=== PATIENT | male | born 1955 | race African-American/Black ===

== ENCOUNTER 2017-10-11 18:49 | Inpatient (IN) | payer MEDICAID ==
[~2017-10-11] VITALS: Ht 167.6 cm; Wt 99.8 kg
[2017-10-11] MEDS: Heparin 5000 units/ml inj SUBQ SCH (01:09)
[~2017-10-11 18:49] MED LIST: ASPIR 8181 MG ORAL; DEPAKENE250 MG ORAL; DEPAKOTE500 MG PO; LIPITOR10 MG ORAL; METOPROLOL SUCC25 MG ORAL; MIRALAX17 G2 ORAL; MULTI VITAMIN1 EACH ORAL; TYLENOL325 MG ORAL
[2017-10-11 19:00] VITALS: BP 114/70
[2017-10-11] MEDS ORDERED: Cefepime HCl 1 GM in NS 55 ML IV SCH (19:15)
[2017-10-11] MEDS ORDERED: Acetaminophen 650 MG SUPP RECTAL ONE (19:15)
[2017-10-11] MEDS ORDERED: Vancomycin 1 GM in NS 275 ML IV ONE (19:15)
[2017-10-11] MEDS ORDERED: Cefepime 1gm vial ONE (19:20)
[2017-10-11 19:24] LABS: BASOPHILS % (AUTO) 0.4 % (0.0-2.0); EOSINOPHILS % (AUTO) 0.3 % (0.0-3.0); HEMATOCRIT 54.6 % (42.0-52.0); HEMOGLOBIN 17.6 G/DL (14.2-18.0); LYMPHOCYTES % (AUTO) 5.3 % (20.0-45.0); MEAN CORPUSCULAR VOLUME 87 FL (80-99); MONOCYTES % (AUTO) 0.9 % (1.0-10.0); NEUTROPHILS % (AUTO) 93.1 % (45.0-75.0); PLATELET COUNT 184 K/UL (150-450); RED BLOOD COUNT 6.27 M/UL (4.70-6.10); RED CELL DISTRIBUTION WIDTH 12.8 % (11.6-14.8); WHITE BLOOD COUNT 7.9 K/UL (4.8-10.8)
[2017-10-11] MEDS ORDERED: DEPAKENE250 MG/5 M PO (19:28)
[2017-10-11] MEDS ORDERED: DOCUSATE SODIU100 MG ORAL (19:32)
[2017-10-11] MEDS ORDERED: FLEET ENEMA133 ML RECTAL (19:32)
[2017-10-11] MEDS ORDERED: DULCOLAX10 MG RC (19:32)
[2017-10-11] MEDS ORDERED: MILK OF MA400 MG/51 ORAL (19:36)
[2017-10-11] MEDS ORDERED: MIRALAX17 G2 ORAL (19:36)
[2017-10-11] MEDS ORDERED: METOPROLOL TART25 MG ORAL (19:36)
[2017-10-11] MEDS ORDERED: MULTIVITAMINS1 EA13 ORAL (19:37)
[2017-10-11] MEDS ORDERED: TYLENOL EXTRA500 MG ORAL (19:39)
[2017-10-11] MEDS ORDERED: Vancomycin 1gm inj IVPB ONE (19:57)
[2017-10-11 20:01] LABS: ANION GAP 14 mmol/L (5-15); BLOOD UREA NITROGEN 24 mg/dL (7-18); CALCIUM 9.1 MG/DL (8.5-10.1); CARBON DIOXIDE 22 MMOL/L (21-32); CHLORIDE 105 MMOL/L (98-107); CREATININE 1.7 MG/DL (0.55-1.30); POTASSIUM 4.8 MMOL/L (3.5-5.1); SODIUM 141 MMOL/L (136-145)
[2017-10-11 20:13] LABS: ALANINE AMINOTRANSFERASE 74 U/L (12-78); ALBUMIN 3.3 G/DL (3.4-5.0); ALBUMIN/GLOBULIN RATIO 0.8 (1.0-2.7); ALKALINE PHOSPHATASE 121 U/L (46-116); ASPARTATE AMINO TRANSFERASE 86 U/L (15-37); BILIRUBIN,TOTAL 0.5 MG/DL (0.2-1.0); CKMB 1.5 NG/ML (0.0-3.6); CREATINE KINASE 149 U/L (26-308)
[2017-10-11] MEDS ORDERED: Albuterol/Ipratropium 3ml neb HHN PRN (20:15)
[2017-10-11] MEDS ORDERED: Mylanta II UD 30ml ORAL PRN (20:15)
[2017-10-11] MEDS ORDERED: Promethazine/Codeine 5ml UD ORAL PRN (20:15)
[2017-10-11] MEDS ORDERED: Nitroglycerin Subl 0.4mg tab SL PRN (20:15)
[2017-10-11] MEDS ORDERED: Miralax 17gm pkt ORAL PRN (20:15)
[2017-10-11 20:42] VITALS: BP 123/83
[2017-10-11] MEDS ORDERED: Cefepime HCl 1 GM in D5W 55 ML IV SCH (21:00)
[2017-10-11 22:30] VITALS: BP 112/84
--- NOTE | 2017-10-11 22:44 | Emergency Room Report ---
History of Present Illness General Chief Complaint: Altered Level of Consciousness Source: Patient, Medical Record, EMS Present Illness HPI Patient presents from a [facility] facility. He was noted by the staff to be weaker than usual and be more altered unusual. He also is found to have a low oxygen saturation at the facility at 86%. This did improve with 2 L of nasal cannula. Patient has a history of CVA with hemiplegia and seizure disorder. He was also tachypneic. The patient states he does feel slightly short of breath. He denies pain. He has no other complaints. Allergies: Coded Allergies: NO KNOWN ALLERGIES (Unverified Allergy, Unknown, 09/03/15) Patient History Past Medical History: see triage record, HTN, DC, CVA/TIA, dementia, seizures Social History: Denies: smoking, alcohol use, drug use Reviewed Nursing Documentation: PMH: Agreed, PSxH: Agreed Nursing Documentation-PMH Past Medical History: No History, Except For Hx Hypertension: Yes - cataract Hx Gastrointestinal Problems: Yes - dysphagia Hx Neurological Problems: Yes - muscle weakness, hx of fall, obstructive hydrocephalus Hx Cerebrovascular Accident: Yes Hx Seizures: Yes Review of Systems All Other Systems: negative except mentioned in HPI Physical Exam Vital Signs Date Time Temp Pulse Resp B/P (MAP) Pulse Ox O2 Delivery O2 Flow Rate FiO2 10/11/17 18:51 102.9 112 20 112/82 99 Non-Rebreather 15.0 10/11/17 20:57 30 Sp02 EP Interpretation: reviewed, abnormal General Appearance: alert, GCS 15, moderate distress, Chronically Ill Head: normocephalic, atraumatic ENT: hearing grossly normal, normal pharynx, no angioedema, normal voice Neck: full range of motion, supple/symm/no masses Respiratory: chest non-tender, lungs clear, normal breath sounds, no retraction , no accessory muscle use, speaking full sentences, other - tachypnea Cardiovascular #1: no edema, tachycardia Gastrointestinal: normal bowel sounds, non tender, soft, non-distended, no guarding, no rebound Rectal: deferred Musculoskeletal: back normal, normal range of motion Neurologic: alert, responsive, other - At baseline, hemiplegia Psychiatric: judgement/insight normal, memory normal, mood/affect normal, no suicidal/homicidal ideation Skin: normal color, no rash, warm/dry, well hydrated Medical Decision Making Diagnostic Impression: Primary Impression: Sepsis Additional Impressions: Fever Renal failure Lactic acidosis Pneumonia ER Course This patient presented with a fever of 102. He was tachypneic with increased work of breathing, so I did start the patient on BiPAP to decrease his work of breathing. The patient does not have a large pneumonia on chest x-ray. There was a slightly hazy right lower lobe opacity that could be an early pneumonia. The patient's creatinine is elevated and I am unsure of this patient's baseline. He also has a lactic acidosis. He could also have influenza. He was given broad-spectrum antibiotics and IV fluids. He was admitted to the ICU step down. This patient is critically ill. This patient required complex medical decision- making, aggressive intervention, extensive laboratory workup and monitoring. Critical care time: 40 minutes. Laboratory Tests Test 10/11/17 19:05 White Blood Count 7.9 K/UL (4.8-10.8) Red Blood Count 6.27 M/UL (4.70-6.10) H Hemoglobin 17.6 G/DL (14.2-18.0) Hematocrit 54.6 % (42.0-52.0) H Mean Corpuscular Volume 87 FL (80-99) Mean Corpuscular Hemoglobin 28.0 PG (27.0-31.0) Mean Corpuscular Hemoglobin Concent 32.2 G/DL (32.0-36.0) Red Cell Distribution Width 12.8 % (11.6-14.8) Platelet Count 184 K/UL (150-450) Mean Platelet Volume 6.7 FL (6.5-10.1) Neutrophils (%) (Auto) 93.1 % (45.0-75.0) H Lymphocytes (%) (Auto) 5.3 % (20.0-45.0) L Monocytes (%) (Auto) 0.9 % (1.0-10.0) L Eosinophils (%) (Auto) 0.3 % (0.0-3.0) Basophils (%) (Auto) 0.4 % (0.0-2.0) Sodium Level 141 MMOL/L (136-145) Potassium Level 4.8 MMOL/L (3.5-5.1) Chloride Level 105 MMOL/L (98-107) Carbon Dioxide Level 22 MMOL/L (21-32) Anion Gap 14 mmol/L (5-15) Blood Urea Nitrogen 24 mg/dL (7-18) H Creatinine 1.7 MG/DL (0.55-1.30) H Estimate Glomerular Filtration Rate 49.9 mL/min (>60) Glucose Level 94 MG/DL (74-106) Lactic Acid Level 5.00 mmol/L (0.66-2.22) H Calcium Level 9.1 MG/DL (8.5-10.1) Total Bilirubin 0.5 MG/DL (0.2-1.0) Aspartate Amino Transferase (AST) 86 U/L (15-37) H Alanine Aminotransferase (ALT) 74 U/L (12-78) Alkaline Phosphatase 121 U/L (46-116) H Total Creatine Kinase 149 U/L (26-308) Creatine Kinase MB 1.5 NG/ML (0.0-3.6) Creatine Kinase MB Relative Index 1.0 Troponin I 0.009 ng/mL (0.000-0.056) Total Protein 7.3 G/DL (6.4-8.2) Albumin 3.3 G/DL (3.4-5.0) L Globulin 4.0 g/dL Albumin/Globulin Ratio 0.8 (1.0-2.7) L Microbiology Date/Time Source Procedure Growth Status 10/11/17 19:35 Nasal Nares Influenza Types A,B Antigen (KATHARINE) - Final Complete EKG Diagnostic Results Rate: tachycardiac Rhythm: other - S.tachycardia ST Segments: other Other Impression NSST Rhythm Strip Diag. Results EP Interpretation: yes Rate: 130's Rhythm: no PVC's, no ectopy, other - s.tachy Chest X-Ray Diagnostic Results Chest X-Ray Diagnostic Results : Chest X-Ray Ordered: Yes # of Views/Limited/Complete: 1 View Indication: Shortness of Breath EP Interpretation: Yes Interpretation: no effusion, no pneumothorax Impression: Other - hazy small opacity in RLL Last Vital Signs Date Time Temp Pulse Resp B/P (MAP) Pulse Ox O2 Delivery O2 Flow Rate FiO2 10/11/17 20:57 111 23 97 Facial 30 10/11/17 20:42 103.3 123/83 10/11/17 18:51 15.0 Disposition: ADMITTED INPATIENT Condition: Critical Referrals: NON PHYSICIAN (PCP) JULIET PEMBERTON D.O.b 1, 2018 22:44
[2017-10-12] VITALS (17 sets, daily range): BP systolic 93–158; BP diastolic 63–136
[2017-10-12 04:25] LABS: HEMATOCRIT 46.1 % (42.0-52.0); HEMOGLOBIN 15.7 G/DL (14.2-18.0); MEAN CORPUSCULAR VOLUME 86 FL (80-99); PLATELET COUNT 166 K/UL (150-450); RED BLOOD COUNT 5.34 M/UL (4.70-6.10); RED CELL DISTRIBUTION WIDTH 12.6 % (11.6-14.8)
[2017-10-12 04:43] LABS: ALANINE AMINOTRANSFERASE 59 U/L (12-78); ALBUMIN 2.7 G/DL (3.4-5.0); ALBUMIN/GLOBULIN RATIO 0.8 (1.0-2.7); ALKALINE PHOSPHATASE 60 U/L (46-116); ANION GAP 10 mmol/L (5-15); ASPARTATE AMINO TRANSFERASE 49 U/L (15-37); BILIRUBIN,TOTAL 0.3 MG/DL (0.2-1.0); BLOOD UREA NITROGEN 24 mg/dL (7-18); CALCIUM 8.8 MG/DL (8.5-10.1); CARBON DIOXIDE 22 MMOL/L (21-32); CHLORIDE 109 MMOL/L (98-107); CREATININE 1.4 MG/DL (0.55-1.30); POTASSIUM 4.2 MMOL/L (3.5-5.1); SODIUM 141 MMOL/L (136-145)
[2017-10-12 07:42] LABS: APPEARANCE,URINE CLEAR; BILIRUBIN, URINE NEGATIVE (NEGATIVE); GLUCOSE, URINE (UA) NEGATIVE (NEGATIVE); KETONES,URINE NEGATIVE (NEGATIVE); LEUKOCYTE ESTERASE ,URINE 3+ (NEGATIVE); NITRITE,URINE POSITIVE (NEGATIVE); PH,URINE 5 (4.5-8.0); PROTEIN,URINE 2+ (NEGATIVE); UROBILINOGEN,URINE NORMAL MG/DL (0.0-1.0)
[2017-10-12 07:53] LABS: COLOR,URINE YELLOW
[2017-10-12] MEDS ORDERED: Sodium Phosphate 30 MM in NS 275 ML IVPB ONE (08:00)
[2017-10-12] MEDS: Heparin 5000 units/ml inj SUBQ SCH ×2 (08:25→21:50)
--- NOTE | 2017-10-12 11:10 | History and Physical ---
History of Present Illness General Date patient seen: Oct 12, 2017 Reason for Hospitalization: Altered Level of Consciousness Present Illness HPI 61 year old male from retirement wtih a history of CVA with hemiplegia and seizure disorder presented to ER with CC of to weakness and be more altered unusual. He also is found to have a low oxygen saturation at the facility at 86 %. He was also tachypneic. The patient states he does feel slightly short of breath. Allergies: Coded Allergies: NO KNOWN ALLERGIES (Unverified Allergy, Unknown, 09/03/15) Medication History Scheduled Aspirin* (Aspir 81*), 81 MG ORAL DAILY, (Reported) Atorvastatin Calcium* (Lipitor*), 10 MG ORAL BEDTIME Docusate Sodium* (Docusate Sodium*), 200 MG ORAL DAILY, (Reported) Metoprolol Tartrate* (Metoprolol Tartrate*), 25 MG ORAL DAILY, (Reported) Multivitamin with Minerals (Multivitamins with Minerals), 1 TAB ORAL DAILY, ( Reported) Valproate Sodium (Depakene), 750 MG PO DAILY, (Reported) Scheduled PRN Acetaminophen (Tylenol), 325 MG ORAL Q6H PRN for For Pain, (Reported) Acetaminophen* (Tylenol Extra Strength*), 1,000 MG ORAL Q6H PRN for PAIN (Mod 5- 7), (Reported) Bisacodyl (Dulcolax), 10 MG RC for Constipation, (Reported) Magnesium Hydroxide* (Milk Of Magnesia*), 30 ML ORAL DAILY PRN for Constipation, (Reported) Na Phos,M-B/Na Phos,Di-Ba* (Fleet Enema*), 133 ML RECTAL DAILY PRN for Constipation, (Reported) Polyethylene Glycol 3350* (Miralax*), 17 GM ORAL DAILY PRN for Constipation, ( Reported) Discontinued Medications Divalproex Sodium (Depakote), 500 MG PO DAILY Discontinued Reason: discontinued med Divalproex Sodium (Depakote), 750 MG PO HS Discontinued Reason: MD discontinued med Metoprolol Succinate* (Metoprolol Succinate*), 25 MG ORAL DAILY Discontinued Reason: MD discontinued med Multivitamin (Multi Vitamin Daily), 1 TAB ORAL DAILY, (Reported) Discontinued Reason: MD discontinued med Valproic Acid (Depakene), 500 MG ORAL BID, (Reported) Discontinued Reason: MD discontinued med Patient History Healthcare decision maker Resuscitation status Full Code Advanced Directive on File Yes Past Medical/Surgical History Past Medical/Surgical History: (1) Obstructive hydrocephalus (2) Dementia (3) Epileptic seizure, generalized Review of Systems Constitutional: Reports: no symptoms Eye: Reports: no symptoms Physical Exam General Appearance: WD/WN Lines, tubes and drains: peripheral, central line, trach HEENT: normocephalic, anicteric Neck: non-tender, normal alignment Respiratory/Chest: chest wall non-tender, lungs clear Breasts: no masses Cardiovascular/Chest: normal peripheral pulses, normal rate Abdomen: normal bowel sounds, non tender, hyperactive bowel sounds Genitourinary/Rectal: normal genital exam Last 24 Hour Vital Signs Date Time Temp Pulse Resp B/P (MAP) Pulse Ox O2 Delivery O2 Flow Rate FiO2 10/12/17 10:00 101 25 104/68 99 Nasal Cannula 4.0 10/12/17 09:00 102 31 102/66 95 Nasal Cannula 4.0 10/12/17 08:00 99.1 106 32 101/63 95 Nasal Cannula 4.0 10/12/17 08:00 103 10/12/17 07:00 99 27 104/64 95 Nasal Cannula 4.0 10/12/17 06:45 96 24 95 10/12/17 06:00 93 21 94/65 95 Bi-pap 30 10/12/17 05:22 92 19 95 Facial 30 10/12/17 05:00 95 24 97/64 95 Bi-pap 30 10/12/17 04:00 99.4 97 27 104/78 94 Bi-pap 30 10/12/17 04:00 103 10/12/17 04:00 30 10/12/17 03:30 112 31 94 Facial 30 10/12/17 03:00 105 27 113/75 95 Bi-pap 30 10/12/17 02:21 99.4 10/12/17 02:00 105 27 111/70 94 Bi-pap 30 10/12/17 01:00 100.0 108 26 158/136 88 Nasal Cannula 6.0 10/12/17 00:59 114 30 93 Facial 30 10/12/17 00:40 110 32 117/85 98 10/12/17 00:00 110 32 117/85 98 Bi-pap 10/11/17 23:30 114 30 93 Facial 30 10/11/17 22:30 108 25 112/84 97 Bi-pap 10/11/17 20:57 111 23 97 Facial 30 10/11/17 20:42 103.3 113 24 123/83 96 10/11/17 19:00 103.3 137 40 114/70 94 Non-Rebreather 10/11/17 18:51 102.9 112 20 112/82 99 Non-Rebreather 15.0 Intake and Output 10/11/17 10/12/17 19:00 07:00 Intake Total 0 ml Output Total 350 ml Balance -350 ml Intake Oral 0 ml Output Urine Total 350 ml # Voids 1 # Bowel Movements 3 Laboratory Tests Test 10/11/17 19:05 10/11/17 23:32 10/12/17 03:35 10/12/17 04:30 White Blood Count 7.9 K/UL (4.8-10.8) 25.0 K/UL (4.8-10.8) #*H Red Blood Count 6.27 M/UL (4.70-6.10) H 5.34 M/UL (4.70-6.10) Hemoglobin 17.6 G/DL (14.2-18.0) 15.7 G/DL (14.2-18.0) Hematocrit 54.6 % (42.0-52.0) H 46.1 % (42.0-52.0) Mean Corpuscular Volume 87 FL (80-99) 86 FL (80-99) Mean Corpuscular Hemoglobin 28.0 PG (27.0-31.0) 29.3 PG (27.0-31.0) Mean Corpuscular Hemoglobin Concent 32.2 G/DL (32.0-36.0) 33.9 G/DL (32.0-36.0) Red Cell Distribution Width 12.8 % (11.6-14.8) 12.6 % (11.6-14.8) Platelet Count 184 K/UL (150-450) 166 K/UL (150-450) Mean Platelet Volume 6.7 FL (6.5-10.1) 7.1 FL (6.5-10.1) Neutrophils (%) (Auto) 93.1 % (45.0-75.0) H % (45.0-75.0) Lymphocytes (%) (Auto) 5.3 % (20.0-45.0) L % (20.0-45.0) Monocytes (%) (Auto) 0.9 % (1.0-10.0) L % (1.0-10.0) Eosinophils (%) (Auto) 0.3 % (0.0-3.0) % (0.0-3.0) Basophils (%) (Auto) 0.4 % (0.0-2.0) % (0.0-2.0) Sodium Level 141 MMOL/L (136-145) 141 MMOL/L (136-145) Potassium Level 4.8 MMOL/L (3.5-5.1) 4.2 MMOL/L (3.5-5.1) Chloride Level 105 MMOL/L (98-107) 109 MMOL/L (98-107) H Carbon Dioxide Level 22 MMOL/L (21-32) 22 MMOL/L (21-32) Anion Gap 14 mmol/L (5-15) 10 mmol/L (5-15) Blood Urea Nitrogen 24 mg/dL (7-18) H 24 mg/dL (7-18) H Creatinine 1.7 MG/DL (0.55-1.30) H 1.4 MG/DL (0.55-1.30) H Estimat Glomerular Filtration Rate 49.9 mL/min (>60) > 60 mL/min (>60) Glucose Level 94 MG/DL (74-106) 107 MG/DL (74-106) H Lactic Acid Level 5.00 mmol/L (0.66-2.22) H 5.30 mmol/L (0.66-2.22) H Calcium Level 9.1 MG/DL (8.5-10.1) 8.8 MG/DL (8.5-10.1) Total Bilirubin 0.5 MG/DL (0.2-1.0) 0.3 MG/DL (0.2-1.0) Aspartate Amino Transf (AST/SGOT) 86 U/L (15-37) H 49 U/L (15-37) H Alanine Aminotransferase (ALT/SGPT) 74 U/L (12-78) 59 U/L (12-78) Alkaline Phosphatase 121 U/L (46-116) H 60 U/L (46-116) Total Creatine Kinase 149 U/L (26-308) Creatine Kinase MB 1.5 NG/ML (0.0-3.6) Creatine Kinase MB Relative Index 1.0 Troponin I 0.009 ng/mL (0.000-0.056) Total Protein 7.3 G/DL (6.4-8.2) 6.2 G/DL (6.4-8.2) L Albumin 3.3 G/DL (3.4-5.0) L 2.7 G/DL (3.4-5.0) L Globulin 4.0 g/dL 3.5 g/dL Albumin/Globulin Ratio 0.8 (1.0-2.7) L 0.8 (1.0-2.7) L Differential Total Cells Counted 100 Neutrophils % (Manual) 80 % (45-75) H Lymphocytes % (Manual) 6 % (20-45) L Monocytes % (Manual) 4 % (1-10) Eosinophils % (Manual) 0 % (0-3) Basophils % (Manual) 0 % (0-2) Band Neutrophils 10 % (0-8) H Platelet Estimate Adequate Platelet Morphology Normal Red Blood Cell Morphology Normal Phosphorus Level 1.0 MG/DL (2.5-4.9) L Magnesium Level 1.7 MG/DL (1.8-2.4) L Urine Color Yellow Urine Appearance Clear Urine pH 5 (4.5-8.0) Urine Specific [place] 1.015 (1.005-1.035) Urine Protein 2+ (NEGATIVE) H Urine Glucose (UA) Negative (NEGATIVE) Urine Ketones Negative (NEGATIVE) Urine Occult Blood 5+ (NEGATIVE) H Urine Nitrite Positive (NEGATIVE) H Urine Bilirubin Negative (NEGATIVE) Urine Urobilinogen Normal MG/DL (0.0-1.0) Urine Leukocyte Esterase 3+ (NEGATIVE) H Urine RBC 20-30 /HPF (0 - 0) H Urine WBC 15-20 /HPF (0 - 0) H Urine Squamous Epithelial Cells Occasional /LPF Urine Bacteria Moderate /HPF (NONE) H Test 10/12/17 06:50 Arterial Blood pH 7.438 (7.350-7.450) Arterial Blood Partial Pressure CO2 29.8 mmHg (35.0-45.0) L Arterial Blood Partial Pressure O2 67.1 mmHg (75.0-100.0) L Arterial Blood HCO3 19.7 mmol/L (22.0-26.0) L Arterial Blood Oxygen Saturation 93.6 % (92.0-98.0) Arterial Blood Base Excess -3.1 Dipak Test Positive Microbiology Date/Time Source Procedure Growth Status 10/11/17 19:35 Nasal Nares Influenza Types A,B Antigen (KATHARINE) - Final Complete Height (Feet): 5 Height (Inches): 7.00 Weight (Pounds): 175 Medications Current Medications Medications (Trade) Dose Ordered Sig/Olvin Route PRN Reason Start Time Stop Time Status Last Admin Dose Admin Acetaminophen (Tylenol) 650 mg Q4H PRN ORAL fever (temp>100.5F) 10/11/17 20:15 11/10/17 20:14 10/12/17 01:22 Al Hydroxide/Mg Hydroxide (Mylanta II) 30 ml Q6H PRN ORAL dyspepsia 10/11/17 20:15 11/10/17 20:14 Albuterol/ Ipratropium (Albuterol/ Ipratropium) 3 ml Q4H PRN HHN Shortness of Breath 10/11/17 20:15 10/16/17 20:14 Cefepime HCl 1 gm/ Sodium Chloride 55 ml @ 110 mls/hr DAILY@2000 IV 10/12/17 20:00 10/19/17 19:59 Heparin Sodium (Porcine) (Heparin 5000 units/ml) 5,000 units EVERY 12 HOURS SUBQ 10/11/17 22:00 11/10/17 21:59 10/12/17 08:25 Nitroglycerin (Ntg) 0.4 mg Q5M PRN SL Prn Chest Pain 10/11/17 20:15 11/10/17 20:14 Ondansetron HCl (Zofran) 4 mg Q6H PRN IVP Nausea & Vomiting 10/11/17 20:15 11/10/17 20:14 Polyethylene Glycol (Miralax) 17 gm DAILYPRN PRN ORAL Constipation 10/11/17 20:15 11/10/17 20:14 Promethazine HCl/ Codeine (Phenergan with Codeine) 5 ml Q4H PRN ORAL For Cough 10/11/17 20:15 11/10/17 20:14 Sodium Phosphate 30 mm/Sodium Chloride 285 ml @ 47.5 mls/hr ONCE ONCE IVPB 10/12/17 08:00 10/12/17 13:59 10/12/17 08:20 Temazepam (Restoril) 15 mg HSPRN PRN ORAL Insomnia 10/11/17 20:15 10/18/17 20:14 Vancomycin HCl (Vanco rx to dose) 1 ea DAILY PRN MISC Per rx protocol 10/11/17 20:15 11/10/17 20:14 Vancomycin HCl 1 gm/Dextrose 275 ml @ 183.708 mls/hr Q24H IVPB 10/12/17 21:00 10/17/17 20:59 Assessment/Plan Problem List: (1) Hypoxemia ICD Codes: R09.02 - Hypoxemia SNOMED: 630870164 (2) Obstructive hydrocephalus ICD Codes: G91.1 - Obstructive hydrocephalus SNOMED: 60763843, 451566695 (3) Renal failure ICD Codes: N19 - Unspecified kidney failure SNOMED: 55421530 (4) CVA, old, hemiparesis ICD Codes: I69.359 - Hemiplegia and hemiparesis following cerebral infarction affecting unspecified side SNOMED: 16238266, 54078910, [id number] Assessment/Plan titrate fio2 to sat of 92% V/q or CT angio to rule out PE check cultures neuro evaluation dvt prophylaxis EDDIE COLES Oct 12, 2017 11:10
[2017-10-12] MEDS ORDERED: D5 1/2NS 1,000 ML IV SCH (11:30)
[2017-10-12 12:51] LABS: CREATINE KINASE 676 U/L (26-308)
--- NOTE | 2017-10-12 14:17 | Diagnostic Imaging Report ---
Indication: Dyspnea Comparison: 09/03/2015 A single view chest radiograph was obtained. Findings: Cardiomediastinal appearance is within normal limits for age. Pulmonary vascularity is appropriate. The diaphragmatic contour is smooth and costophrenic angles are sharp. No pleural effusions are identified. The bones are unremarkable. Impression: No acute findings
[2017-10-12] MEDS ORDERED: Nitroglycerin Subl 0.4mg tab SL PRN (15:05)
--- NOTE | 2017-10-12 15:07 | Consultation ---
History of Present Illness General Date patient seen: Oct 12, 2017 Time patient seen: 15:05 Chief Complaint: Altered Level of Consciousness Present Illness HPI 61 y/o M with hx of CVA with hemiplegia, HTN, cataract, dysphagia, hx of fall, CAD/OR, CVA/TIA, dementia, seizure disorder presents to ED on 10/11 with weakness , AMS, tachypnea, SOB and desaturation to 85% at group home facility. Patient febrile up to 103.3, tachycardic. Initially required Bipap, now on NC. leukocytosis upt o 25 today. CXR with no PNA. ON IV Vanco and CEfepime. Influenza neg Allergies: Coded Allergies: NO KNOWN ALLERGIES (Unverified Allergy, Unknown, 09/03/15) Medication History Scheduled Aspirin* (Aspir 81*), 81 MG ORAL DAILY, (Reported) Atorvastatin Calcium* (Lipitor*), 10 MG ORAL BEDTIME Docusate Sodium* (Docusate Sodium*), 200 MG ORAL DAILY, (Reported) Metoprolol Tartrate* (Metoprolol Tartrate*), 25 MG ORAL DAILY, (Reported) Multivitamin with Minerals (Multivitamins with Minerals), 1 TAB ORAL DAILY, ( Reported) Valproate Sodium (Depakene), 750 MG PO DAILY, (Reported) Scheduled PRN Acetaminophen (Tylenol), 325 MG ORAL Q6H PRN for For Pain, (Reported) Acetaminophen* (Tylenol Extra Strength*), 1,000 MG ORAL Q6H PRN for PAIN (Mod 5- 7), (Reported) Bisacodyl (Dulcolax), 10 MG RC for Constipation, (Reported) Magnesium Hydroxide* (Milk Of Magnesia*), 30 ML ORAL DAILY PRN for Constipation, (Reported) Na Phos,M-B/Na Phos,Di-Ba* (Fleet Enema*), 133 ML RECTAL DAILY PRN for Constipation, (Reported) Polyethylene Glycol 3350* (Miralax*), 17 GM ORAL DAILY PRN for Constipation, ( Reported) Discontinued Medications Divalproex Sodium (Depakote), 500 MG PO DAILY Discontinued Reason: MD discontinued med Divalproex Sodium (Depakote), 750 MG PO HS Discontinued Reason: discontinued med Metoprolol Succinate* (Metoprolol Succinate*), 25 MG ORAL DAILY Discontinued Reason: MD discontinued med Multivitamin (Multi Vitamin Daily), 1 TAB ORAL DAILY, (Reported) Discontinued Reason: MD discontinued med Valproic Acid (Depakene), 500 MG ORAL BID, (Reported) Discontinued Reason: MD discontinued med Patient History Healthcare decision maker Resuscitation status Full Code Advanced Directive on File Yes Patient History Narrative Pmhx: as above Sh: Denies: smoking, alcohol use, drug use Fhx: non contributory Review of Systems ROS Narrative unable to obtain Physical Exam Physical Exam Narrative General Appearance: alert, moderate distress, Chronically Ill Head: normocephalic, atraumatic ENT: hearing grossly normal, normal pharynx, no angioedema, normal voice, injected conjuctiva Neck: full range of motion, supple/symm/no masses Respiratory: chest non-tender, lungs clear, normal breath sounds, no retraction , no accessory muscle use, speaking full sentences, other - tachypnea Cardiovascular no edema, tachycardia Gastrointestinal: normal bowel sounds, non tender, soft, non-distended, no guarding, no rebound Musculoskeletal: back normal, normal range of motion Skin: normal color, no rash, warm/dry, well hydrated Last 24 Hour Vital Signs Date Time Temp Pulse Resp B/P (MAP) Pulse Ox O2 Delivery O2 Flow Rate FiO2 10/12/17 14:00 112 25 120/74 97 Nasal Cannula 3.0 10/12/17 13:00 103 24 112/71 100 Nasal Cannula 3.0 10/12/17 12:00 115 10/12/17 12:00 98.7 112 25 114/74 100 Nasal Cannula 3.0 10/12/17 11:16 111 26 97 10/12/17 11:00 111 26 93/68 98 Nasal Cannula 3.0 10/12/17 10:00 101 25 104/68 99 Nasal Cannula 4.0 10/12/17 09:00 102 31 102/66 95 Nasal Cannula 4.0 10/12/17 08:00 99.1 106 32 101/63 95 Nasal Cannula 4.0 10/12/17 08:00 103 10/12/17 07:00 99 27 104/64 95 Nasal Cannula 4.0 10/12/17 06:45 96 24 95 10/12/17 06:00 93 21 94/65 95 Bi-pap 30 10/12/17 05:22 92 19 95 Facial 30 10/12/17 05:00 95 24 97/64 95 Bi-pap 30 10/12/17 04:00 99.4 97 27 104/78 94 Bi-pap 30 10/12/17 04:00 103 10/12/17 04:00 30 10/12/17 03:30 112 31 94 Facial 30 10/12/17 03:00 105 27 113/75 95 Bi-pap 30 10/12/17 02:21 99.4 10/12/17 02:00 105 27 111/70 94 Bi-pap 30 10/12/17 01:00 100.0 108 26 158/136 88 Nasal Cannula 6.0 10/12/17 00:59 114 30 93 Facial 30 10/12/17 00:40 110 32 117/85 98 10/12/17 00:00 110 32 117/85 98 Bi-pap 10/11/17 23:30 114 30 93 Facial 30 10/11/17 22:30 108 25 112/84 97 Bi-pap 10/11/17 20:57 111 23 97 Facial 30 10/11/17 20:42 103.3 113 24 123/83 96 10/11/17 19:00 103.3 137 40 114/70 94 Non-Rebreather 10/11/17 18:51 102.9 112 20 112/82 99 Non-Rebreather 15.0 Intake and Output 10/11/17 10/12/17 19:00 07:00 Intake Total 0 ml Output Total 350 ml Balance -350 ml Intake Oral 0 ml Output Urine Total 350 ml # Voids 1 # Bowel Movements 3 Laboratory Tests Test 10/11/17 19:05 10/11/17 23:32 10/12/17 03:35 10/12/17 04:30 White Blood Count 7.9 K/UL (4.8-10.8) 25.0 K/UL (4.8-10.8) #*H Red Blood Count 6.27 M/UL (4.70-6.10) H 5.34 M/UL (4.70-6.10) Hemoglobin 17.6 G/DL (14.2-18.0) 15.7 G/DL (14.2-18.0) Hematocrit 54.6 % (42.0-52.0) H 46.1 % (42.0-52.0) Mean Corpuscular Volume 87 FL (80-99) 86 FL (80-99) Mean Corpuscular Hemoglobin 28.0 PG (27.0-31.0) 29.3 PG (27.0-31.0) Mean Corpuscular Hemoglobin Concent 32.2 G/DL (32.0-36.0) 33.9 G/DL (32.0-36.0) Red Cell Distribution Width 12.8 % (11.6-14.8) 12.6 % (11.6-14.8) Platelet Count 184 K/UL (150-450) 166 K/UL (150-450) Mean Platelet Volume 6.7 FL (6.5-10.1) 7.1 FL (6.5-10.1) Neutrophils (%) (Auto) 93.1 % (45.0-75.0) H % (45.0-75.0) Lymphocytes (%) (Auto) 5.3 % (20.0-45.0) L % (20.0-45.0) Monocytes (%) (Auto) 0.9 % (1.0-10.0) L % (1.0-10.0) Eosinophils (%) (Auto) 0.3 % (0.0-3.0) % (0.0-3.0) Basophils (%) (Auto) 0.4 % (0.0-2.0) % (0.0-2.0) Sodium Level 141 MMOL/L (136-145) 141 MMOL/L (136-145) Potassium Level 4.8 MMOL/L (3.5-5.1) 4.2 MMOL/L (3.5-5.1) Chloride Level 105 MMOL/L (98-107) 109 MMOL/L (98-107) H Carbon Dioxide Level 22 MMOL/L (21-32) 22 MMOL/L (21-32) Anion Gap 14 mmol/L (5-15) 10 mmol/L (5-15) Blood Urea Nitrogen 24 mg/dL (7-18) H 24 mg/dL (7-18) H Creatinine 1.7 MG/DL (0.55-1.30) H 1.4 MG/DL (0.55-1.30) H Estimat Glomerular Filtration Rate 49.9 mL/min (>60) > 60 mL/min (>60) Glucose Level 94 MG/DL (74-106) 107 MG/DL (74-106) H Lactic Acid Level 5.00 mmol/L (0.66-2.22) H 5.30 mmol/L (0.66-2.22) H Calcium Level 9.1 MG/DL (8.5-10.1) 8.8 MG/DL (8.5-10.1) Total Bilirubin 0.5 MG/DL (0.2-1.0) 0.3 MG/DL (0.2-1.0) Aspartate Amino Transf (AST/SGOT) 86 U/L (15-37) H 49 U/L (15-37) H Alanine Aminotransferase (ALT/SGPT) 74 U/L (12-78) 59 U/L (12-78) Alkaline Phosphatase 121 U/L (46-116) H 60 U/L (46-116) Total Creatine Kinase 149 U/L (26-308) 676 U/L (26-308) H Creatine Kinase MB 1.5 NG/ML (0.0-3.6) Creatine Kinase MB Relative Index 1.0 Troponin I 0.009 ng/mL (0.000-0.056) Total Protein 7.3 G/DL (6.4-8.2) 6.2 G/DL (6.4-8.2) L Albumin 3.3 G/DL (3.4-5.0) L 2.7 G/DL (3.4-5.0) L Globulin 4.0 g/dL 3.5 g/dL Albumin/Globulin Ratio 0.8 (1.0-2.7) L 0.8 (1.0-2.7) L Differential Total Cells Counted 100 Neutrophils % (Manual) 80 % (45-75) H Lymphocytes % (Manual) 6 % (20-45) L Monocytes % (Manual) 4 % (1-10) Eosinophils % (Manual) 0 % (0-3) Basophils % (Manual) 0 % (0-2) Band Neutrophils 10 % (0-8) H Platelet Estimate Adequate Platelet Morphology Normal Red Blood Cell Morphology Normal Uric Acid 7.3 MG/DL (2.6-7.2) H Phosphorus Level 1.0 MG/DL (2.5-4.9) L Magnesium Level 1.7 MG/DL (1.8-2.4) L Urine Color Yellow Urine Appearance Clear Urine pH 5 (4.5-8.0) Urine Specific [place] 1.015 (1.005-1.035) Urine Protein 2+ (NEGATIVE) H Urine Glucose (UA) Negative (NEGATIVE) Urine Ketones Negative (NEGATIVE) Urine Occult Blood 5+ (NEGATIVE) H Urine Nitrite Positive (NEGATIVE) H Urine Bilirubin Negative (NEGATIVE) Urine Urobilinogen Normal MG/DL (0.0-1.0) Urine Leukocyte Esterase 3+ (NEGATIVE) H Urine RBC 20-30 /HPF (0 - 0) H Urine WBC 15-20 /HPF (0 - 0) H Urine Squamous Epithelial Cells Occasional /LPF Urine Bacteria Moderate /HPF (NONE) H Test 10/12/17 06:24 10/12/17 06:50 10/12/17 11:27 Lactic Acid Level 3.40 mmol/L (0.66-2.22) H 3.30 mmol/L (0.66-2.22) H Arterial Blood pH 7.438 (7.350-7.450) Arterial Blood Partial Pressure CO2 29.8 mmHg (35.0-45.0) L Arterial Blood Partial Pressure O2 67.1 mmHg (75.0-100.0) L Arterial Blood HCO3 19.7 mmol/L (22.0-26.0) L Arterial Blood Oxygen Saturation 93.6 % (92.0-98.0) Arterial Blood Base Excess -3.1 Dipak Test Positive Microbiology Date/Time Source Procedure Growth Status 10/11/17 19:35 Nasal Nares Influenza Types A,B Antigen (KATHARINE) - Final Complete Height (Feet): 5 Height (Inches): 7.00 Weight (Pounds): 175 Medications Current Medications Medications (Trade) Dose Ordered Sig/Olvin Route PRN Reason Start Time Stop Time Status Last Admin Dose Admin Acetaminophen (Tylenol) 650 mg Q4H PRN ORAL fever (temp>100.5F) 10/12/17 16:15 11/10/17 20:14 UNV Al Hydroxide/Mg Hydroxide (Mylanta II) 30 ml Q6H PRN ORAL dyspepsia 10/12/17 20:15 11/10/17 20:14 UNV Albuterol/ Ipratropium (Albuterol/ Ipratropium) 3 ml Q4H PRN HHN Shortness of Breath 10/12/17 16:15 10/16/17 20:14 UNV Cefepime HCl 1 gm/ Sodium Chloride 55 ml @ 110 mls/hr DAILY@2000 IV 10/12/17 20:00 10/19/17 19:59 UNV Dextrose/Sodium Chloride 1,000 ml @ 75 mls/hr [id number] IV 10/12/17 15:00 11/11/17 11:29 UNV Heparin Sodium (Porcine) (Heparin 5000 units/ml) 5,000 units EVERY 12 HOURS SUBQ 10/12/17 21:00 11/10/17 21:59 UNV Nitroglycerin (Ntg) 0.4 mg Q5M PRN SL Prn Chest Pain 10/12/17 15:05 11/10/17 20:14 UNV Ondansetron HCl (Zofran) 4 mg Q6H PRN IVP Nausea & Vomiting 10/12/17 20:15 11/10/17 20:14 UNV Pantoprazole (Protonix) 40 mg DAILY IVP 10/13/17 09:00 11/12/17 08:59 UNV Polyethylene Glycol (Miralax) 17 gm DAILYPRN PRN ORAL Constipation 10/12/17 20:15 11/10/17 20:14 UNV Promethazine HCl/ Codeine (Phenergan with Codeine) 5 ml Q4H PRN ORAL For Cough 10/12/17 16:15 11/10/17 20:14 UNV Temazepam (Restoril) 15 mg HSPRN PRN ORAL Insomnia 10/12/17 20:15 10/18/17 20:14 UNV Vancomycin HCl (Vanco rx to dose) 1 ea DAILY PRN MISC Per rx protocol 10/13/17 09:00 11/10/17 20:14 UNV Vancomycin HCl 1 gm/Dextrose 275 ml @ 183.708 mls/hr Q24H IVPB 10/12/17 21:00 10/17/17 20:59 UNV Assessment/Plan Assessment/Plan ABX: IV Vanco 10/11- Cefepime 10/11- Assessment: Sepsis- ?2ry to bronchitis and possible UTI- suspicion for Flu despite rapid test (+URI symptoms, sick contacts) Acute hypoxic resp failure- -CXR: : No acute findings -Influenza neg Fever/leukocytosis -u/a wbc 15-20, nit +, leuk +3 -Bcx p JULIA, improving Lactic acidosis, improving CVA with hemiplegia, HTN, cataract, dysphagia, hx of fall, CAD/OR, CVA/TIA, dementia, seizure disorder Plan: -Continue empiric IV Vanco and Cefepime #2 pending cultures -start empiric Tamiflu #1/5 -obtain Cdiff -f/u cx -Monitor CBC/BMP, temperatures -aspiration precautions Thank you for this consultation. Will continue to follow along with you. Discussed with Alessia Sparks M.D. Oct 12, 2017 15:07
--- NOTE | 2017-10-12 15:09 | Diagnostic Imaging Report ---
Indication: Chest pain Technique: Continuous helical transaxial imaging of the chest was obtained from the thoracic inlet to the upper abdomen during rapid intravenous contrast administration. Arterial phase of enhancement obtained. Coronal 2-D reformats were also obtained and maximum intensity projection images in multiple planes. Study obtained in a Siemens sensation [address] Automatic Exposure Control was utilized. Total Dose length Product (DLP): 638.[address] Dose Index Volume (CTDIvol): 20.42 mGy Comparison: None Findings: Due to breathing motion the segmental branches in the lower lobes especially on the right side are not adequately evaluated due to artifact. The central vessels are clear. The aorta is normal in caliber. There is no dissection or aneurysm. There is basilar atelectasis with reticular densities noted. The visualized part of the upper abdomen is grossly unremarkable. Part of the lung bases are not included in the [id number]. IMPRESSION: No evidence of central pulmonary embolus, aortic dissection or aneurysm. Evaluation of pulmonary artery branches at the segmental level and beyond is not possible on this study due to breathing artifact. Basilar atelectasis The CT scanner at [facility] is accredited by the [employer] and the scans are performed using dose optimization techniques as appropriate to a performed exam including Automatic Exposure control.
[2017-10-12] MEDS ORDERED: Promethazine/Codeine 5ml UD ORAL PRN (16:15)
[2017-10-12] MEDS ORDERED: Albuterol/Ipratropium 3ml neb HHN PRN (16:15)
[2017-10-12] MEDS: D5 1/2NS 1,000 ML IV SCH (16:48)
--- NOTE | 2017-10-12 19:31 | Wound Care Consultation ---
Wound Assessment Wound Assessment #1: Wound Number: 1 Wound Present on Admission: Yes New Wound: No Status Change of Wound: No Wound Location Body Site Modif: right, lateral Wound Location Body Site: malleolus/ankle Wound Type: pressure ulcer Roger Test: Does not Roger Pressure Ulcer Stage: Deep Tissue Injury Wound Thickness: Full Thickness Wound Length: 3.0 Wound Width: 3.0 Wound Depth: utd Percent of Wound Purple/Maroon: 100 Wound Drainage Amount: None Wound Drainage Odor: None/Absent Tissue Surrounding Wound: Erythemic Wound General Appearance: Reddened - purple Wound Assessment #2: Wound Number: 2 Wound Present on Admission: Yes New Wound: No Status Change of Wound: No Wound Location Body Site Modif: left, lower, anterior Wound Location Body Site: leg Wound Type: other - open wound Roger Test: Does not Roger Wound Thickness: Partial Thickness Wound Length: 4.5 Wound Width: 2.5 Wound Depth: less than 0.1 Percent of Wound [place]/Red: 100 Wound Drainage Description: Serosanguineous Wound Drainage Amount: Scant Wound Drainage Odor: None/Absent Tissue Surrounding Wound: Erythemic Wound General Appearance: Reddened, Draining Wound Assessment #3: Wound Number: 3 Wound Present on Admission: Yes New Wound: No Status Change of Wound: No Wound Location Body Site Modif: right, dorsal Wound Location Body Site: foot Wound Type: scab Percent of Wound [place]/Red: 100 Wound Drainage Amount: None Wound Drainage Odor: None/Absent Tissue Surrounding Wound: Intact Wound General Appearance: Reddened Wound Comment #1 Right lateral malleolus SDTI pressure ulcer #2 Left anterior lower leg open wound. Etiology unknown #3 Right dorsal foot dry scab Recommendation -Local wound care per protocol -Keep clean and dry -Optimize nutrition -Turn and reposition -Heel protector on both heels -Offload both heels -Low air loss mattress -Assess and f/u accordingly for any changes LUISA LOERA RN Oct 12, 2017 19:31
[2017-10-12] MEDS ORDERED: Cefepime HCl 2 GM in NS 55 ML IV SCH (20:00)
[2017-10-12] MEDS ORDERED: Cefepime HCl 1 GM in NS 55 ML IV SCH (20:00)
[2017-10-12] MEDS ORDERED: Mylanta II UD 30ml ORAL PRN (20:15)
[2017-10-12] MEDS ORDERED: Miralax 17gm pkt ORAL PRN (20:15)
[2017-10-12] MEDS ORDERED: Vancomycin 1gm/D5W 275ml IVPB SCH ×2 (21:00)
[2017-10-12] MEDS: Vancomycin 1 GM in D5W 275 ML IVPB SCH (21:48)
[2017-10-12] MEDS: Oseltamivir 75mg cap ORAL SCH (22:48)
[2017-10-12] MEDS: Metoprolol 25mg tab ORAL SCH (22:48)
[2017-10-13] VITALS: BP 123/90
[2017-10-13 04:00] VITALS: BP 125/83
[2017-10-13] MEDS: D5 1/2NS 1,000 ML IV SCH ×2 (04:18→17:30)
[2017-10-13 04:39] LABS: HEMATOCRIT 45.3 % (42.0-52.0); HEMOGLOBIN 15.2 G/DL (14.2-18.0); MEAN CORPUSCULAR VOLUME 87 FL (80-99); PLATELET COUNT 135 K/UL (150-450); RED BLOOD COUNT 5.19 M/UL (4.70-6.10); RED CELL DISTRIBUTION WIDTH 13.3 % (11.6-14.8)
[2017-10-13 04:55] LABS: WHITE BLOOD COUNT 24.2 K/UL (4.8-10.8)
[2017-10-13 05:58] LABS: ALANINE AMINOTRANSFERASE 42 U/L (12-78); ALBUMIN 2.6 G/DL (3.4-5.0); ALBUMIN/GLOBULIN RATIO 0.6 (1.0-2.7); ALKALINE PHOSPHATASE 73 U/L (46-116); ANION GAP 7 mmol/L (5-15); ASPARTATE AMINO TRANSFERASE 48 U/L (15-37); BILIRUBIN,TOTAL 0.5 MG/DL (0.2-1.0); BLOOD UREA NITROGEN 25 mg/dL (7-18); CALCIUM 8.4 MG/DL (8.5-10.1); CARBON DIOXIDE 27 MMOL/L (21-32); CHLORIDE 109 MMOL/L (98-107); CREATININE 1.3 MG/DL (0.55-1.30); PHOSPHORUS 3.5 MG/DL (2.5-4.9); SODIUM 142 MMOL/L (136-145)
[2017-10-13 08:00] VITALS: BP 137/91
[2017-10-13] MEDS: Aspirin EC 81mg tab ORAL SCH (08:54)
[2017-10-13] MEDS: Metoprolol 25mg tab ORAL SCH (08:55)
[2017-10-13] MEDS: Pantoprazole Inj IVP SCH (08:55)
[2017-10-13] MEDS: Heparin 5000 units/ml inj SUBQ SCH ×2 (08:57→21:23)
[2017-10-13] MEDS ORDERED: Metoprolol 25mg tab ORAL SCH (09:00)
[2017-10-13] MEDS ORDERED: Pantoprazole Inj IVP SCH (09:00)
--- NOTE | 2017-10-13 09:10 | Diagnostic Imaging Report ---
Indication: Abnormal renal function tests Technique: Grayscale and duplex images of the kidneys, retroperitoneum, and bladder were obtained. Comparison: Findings: Exam is limited due to patient body habitus and contracture. Right kidney measures 10.2 cm in length. Left kidney measures 11 cm in length. Both kidneys demonstrate normal echogenicity. No hydronephrosis. No focal abnormality a probable prominent column of Barry in the right kidney. Nonvisualized inferior vena cava. Bladder is empty, contains a Cervantes catheter. Impression: Limited exam No definite hydronephrosis Empty bladder, containing a Cervantes catheter.
--- NOTE | 2017-10-13 09:33 | Diagnostic Imaging Report ---
Indication: Nasogastric tube placement Technique: One view of the chest Comparison: none Findings: There is a nasogastric tube in place, tip projected at the level gastric fundus, proximal port just beyond the gastroesophageal junction. Considerable gas is seen within nondilated large and small bowel loops. Contrast presumably from recent chest CT is seen within the renal collecting systems Impression: Borderline high position of nasogastric tube, consider advancement Other findings as described This agrees with the preliminary interpretation provided overnight by [facility] teleradiology service.
--- NOTE | 2017-10-13 09:38 | Pulmonology Progress Note ---
Assessment/Plan Assessment/Plan ASSESSMENT Acute hypoxemic RF requiring BiPAP-resolved severe sepsis gram negative bacteremia (due to UTI) gram-negative UTI acute bronchitis possible influenza JULIA-resolved lactic acidosis 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 seizure disorder HTN CAD with hx of [place] dysphagia, dementia R lateral malleolus DTI PLAN OF CARE SANTOS off BiPAP, Titrate O2, HHN CXR negative ID follows blood cx + GNR, urine cx + GNR Influenza negative ( but rapid test with only sensitivity 60-65%, by history high suspicion for flu) Empiric Tamiflu and abx Stool C dif CTA no PE neuro eval seizure precautions, check Depakote level, resume Depakote if level non toxic strict asp precautions, tube feeding, monitor tolerance ECHO with pEF 60-65% Continue ASA, BB, statin IVF, monitor renal parameters, lytes, correct as needed Renal US avoid nephrotoxic DVT GI prophylaxis Swallow eval case discussed and evaluated by supervising physician Subjective Allergies: Coded Allergies: NO KNOWN ALLERGIES (Unverified Allergy, Unknown, 09/03/15) Subjective persistent high leukocytosis x 2 days creat trending down no signs of distress, pulse ox stable on O2 via NC Objective Last 24 Hour Vital Signs Date Time Temp Pulse Resp B/P (MAP) Pulse Ox O2 Delivery O2 Flow Rate FiO2 10/13/17 08:55 106 137/91 10/13/17 08:00 98.2 100 22 137/91 97 Nasal Cannula 3.0 10/13/17 08:00 106 10/13/17 04:00 99 10/13/17 04:00 98.4 105 20 125/83 97 Nasal Cannula 3.0 10/13/17 00:00 110 10/13/17 00:00 98.2 117 20 123/90 98 Nasal Cannula 3.0 10/12/17 22:48 124 145/77 10/12/17 20:21 94 Nasal Cannula 3.0 10/12/17 20:21 Nasal Cannula 3.1 10/12/17 20:00 99.0 122 20 136/87 98 Nasal Cannula 3.0 10/12/17 20:00 123 10/12/17 16:00 110 10/12/17 16:00 98.2 109 20 149/77 95 Nasal Cannula 3.0 10/12/17 14:00 112 25 120/74 97 Nasal Cannula 3.0 10/12/17 13:00 103 24 112/71 100 Nasal Cannula 3.0 10/12/17 12:00 115 10/12/17 12:00 98.7 112 25 114/74 100 Nasal Cannula 3.0 10/12/17 11:16 111 26 97 10/12/17 11:00 111 26 93/68 98 Nasal Cannula 3.0 10/12/17 10:00 101 25 104/68 99 Nasal Cannula 4.0 Intake and Output 10/12/17 10/13/17 19:00 07:00 Intake Total 417.5 ml 1387 ml Output Total 480 ml 500 ml Balance -62.5 ml 887 ml IV Total 417.5 ml 1207 ml Tube Feeding 180 ml Output Urine Total 480 ml 500 ml # Bowel Movements 1 2 HEENT: normocephalic, atraumatic, other Respiratory/Chest: lungs clear, no respiratory distress Cardiovascular: no JVD, tachycardia - ST 110-120 Abdomen: normal bowel sounds, soft, non tender, non distended Extremities: no edema, pedal pulses normal Neurologic/Psychiatric: abnormal gait Microbiology Date/Time Source Procedure Growth Status 10/11/17 19:05 Blood Blood Culture - Preliminary Gram Negative Fran Resulted 10/11/17 19:35 Nasal Nares Influenza Types A,B Antigen (KATHARINE) - Final Complete Laboratory Tests 10/12/17 11:27: Lactic Acid Level 3.30H 10/12/17 16:30: Urine Eosinophils None seen, Urine Random Sodium 14L, Urine Potassium Timed 109H 10/13/17 04:10: White Blood Count 24.2*H, Red Blood Count 5.19, Hemoglobin 15.2, Hematocrit 45.3 , Mean Corpuscular Volume 87, Mean Corpuscular Hemoglobin 29.3, Mean Corpuscular Hemoglobin Concent 33.6, Red Cell Distribution Width 13.3, Platelet Count 135L, Mean Platelet Volume 7.2, Neutrophils (%) (Auto) , Lymphocytes (%) ( Auto) , Monocytes (%) (Auto) , Eosinophils (%) (Auto) , Basophils (%) (Auto) , Neutrophils % (Manual) [Pending], Lymphocytes % (Manual) [Pending], Platelet Estimate [Pending], Platelet Morphology [Pending], Sodium Level 142, Potassium Level 4.0, Chloride Level 109H, Carbon Dioxide Level 27, Anion Gap 7, Blood Urea Nitrogen 25H, Creatinine 1.3, Estimat Glomerular Filtration Rate > 60, Glucose Level 92, Calcium Level 8.4L, Phosphorus Level 3.5, Magnesium Level 2.6H , Total Bilirubin 0.5, Aspartate Amino Transf (AST/SGOT) 48H, Alanine Aminotransferase (ALT/SGPT) 42, Alkaline Phosphatase 73, Total Protein 6.6, Albumin 2.6L, Globulin 4.0, Albumin/Globulin Ratio 0.6L, Valproic Acid (Depakene ) Level 32L Current Medications Medications (Trade) Dose Ordered Sig/Olvin Route PRN Reason Start Time Stop Time Status Last Admin Dose Admin Acetaminophen (Tylenol) 650 mg Q4H PRN ORAL fever (temp>100.5F) 10/12/17 16:15 11/10/17 20:14 10/12/17 22:50 Al Hydroxide/Mg Hydroxide (Mylanta II) 30 ml Q6H PRN ORAL dyspepsia 10/12/17 20:15 11/10/17 20:14 Albuterol/ Ipratropium (Albuterol/ Ipratropium) 3 ml Q4H PRN HHN Shortness of Breath 10/12/17 16:15 10/16/17 20:14 Aspirin (Ecotrin) 81 mg DAILY ORAL 10/13/17 09:00 11/12/17 08:59 10/13/17 08:54 Atorvastatin Calcium (Lipitor) 10 mg BEDTIME ORAL 10/12/17 21:00 11/11/17 20:59 10/12/17 22:47 Cefepime HCl 2 gm/ Sodium Chloride 55 ml @ 110 mls/hr DAILY@2000 IV 10/12/17 20:00 10/19/17 19:59 10/12/17 20:33 Dextrose/Sodium Chloride 1,000 ml @ 75 mls/hr [id number] IV 10/12/17 15:30 11/11/17 15:29 10/13/17 04:18 Heparin Sodium (Porcine) (Heparin 5000 units/ml) 5,000 units EVERY 12 HOURS SUBQ 10/12/17 21:00 11/10/17 21:59 10/13/17 08:57 Metoprolol Tartrate (Lopressor) 25 mg DAILY ORAL 10/12/17 22:45 11/11/17 22:44 10/13/17 08:55 Nitroglycerin (Ntg) 0.4 mg Q5M PRN SL Prn Chest Pain 10/12/17 15:05 11/10/17 20:14 Ondansetron HCl (Zofran) 4 mg Q6H PRN IVP Nausea & Vomiting 10/12/17 20:15 11/10/17 20:14 Oseltamivir Phosphate (Tamiflu) 75 mg TWICE A DAY ORAL 10/12/17 21:00 10/17/17 23:59 10/12/17 22:48 Pantoprazole (Protonix) 40 mg DAILY IVP 10/13/17 09:00 11/12/17 08:59 10/13/17 08:55 Polyethylene Glycol (Miralax) 17 gm DAILYPRN PRN ORAL Constipation 10/12/17 20:15 11/10/17 20:14 Promethazine HCl/ Codeine (Phenergan with Codeine) 5 ml Q4H PRN ORAL For Cough 10/12/17 16:15 11/10/17 20:14 Temazepam (Restoril) 15 mg HSPRN PRN ORAL Insomnia 10/12/17 20:15 10/18/17 20:14 Vancomycin HCl (Vanco rx to dose) 1 ea DAILY PRN MISC Per rx protocol 10/13/17 09:00 11/10/17 20:14 Vancomycin HCl 1 gm/Dextrose 275 ml @ 183.708 mls/hr Q24H IVPB 10/12/17 21:00 10/17/17 20:59 10/12/17 21:48 Pippa Griggs NP ([facility]) Oct 13, 2017 09:38
--- NOTE | 2017-10-13 09:42 | Infectious Diseases Prog Note ---
Assessment/Plan Assessment/Plan ABX: IV Vanco 10/11- Cefepime 10/11- Assessment: Severe Sepsis- 2ry to GN bacteremia and bronchitis; suspicion for Flu despite rapid test (+URI symptoms, sick contacts) -Bcx 10/11 2 GNRs (ID and sensin pending) -u/a wbc 15-20, nit +, leuk +3; Ucx p Acute hypoxic resp failure- improving, on NC now -CXR: : No acute findings -Influenza neg Fever/leukocytosis- improving; 2ry to above JULIA, improving Lactic acidosis, improving CVA with hemiplegia, HTN, cataract, dysphagia, hx of fall, CAD/AR, CVA/TIA, dementia, seizure disorder Plan: -Continue empiric IV Vanco #3 pending sputum culture - Switch Cefepime #3 To Meropenem for ESBL coverage pending ID GNR in blood -continue empiric Tamiflu #2/5 -f/u cx, Cdiff -Monitor CBC/BMP, temperatures; Trend WBC,lactic acid -aspiration precautions Thank you for this consultation. Will continue to follow along with you. Discussed with RN. Subjective Allergies: Coded Allergies: NO KNOWN ALLERGIES (Unverified Allergy, Unknown, 09/03/15) Subjective afebrile Objective Vital Signs Last 24 Hour Vital Signs Date Time Temp Pulse Resp B/P (MAP) Pulse Ox O2 Delivery O2 Flow Rate FiO2 10/13/17 08:55 106 137/91 10/13/17 08:00 98.2 100 22 137/91 97 Nasal Cannula 3.0 10/13/17 08:00 106 10/13/17 04:00 99 10/13/17 04:00 98.4 105 20 125/83 97 Nasal Cannula 3.0 10/13/17 00:00 110 10/13/17 00:00 98.2 117 20 123/90 98 Nasal Cannula 3.0 10/12/17 22:48 124 145/77 10/12/17 20:21 94 Nasal Cannula 3.0 10/12/17 20:21 Nasal Cannula 3.1 10/12/17 20:00 99.0 122 20 136/87 98 Nasal Cannula 3.0 10/12/17 20:00 123 10/12/17 16:00 110 10/12/17 16:00 98.2 109 20 149/77 95 Nasal Cannula 3.0 10/12/17 14:00 112 25 120/74 97 Nasal Cannula 3.0 10/12/17 13:00 103 24 112/71 100 Nasal Cannula 3.0 10/12/17 12:00 115 10/12/17 12:00 98.7 112 25 114/74 100 Nasal Cannula 3.0 10/12/17 11:16 111 26 97 10/12/17 11:00 111 26 93/68 98 Nasal Cannula 3.0 10/12/17 10:00 101 25 104/68 99 Nasal Cannula 4.0 Height (Feet): 5 Height (Inches): 7.00 Weight (Pounds): 175 Objective General Appearance: alert, moderate distress, Chronically Ill Head: normocephalic, atraumatic ENT: hearing grossly normal, normal pharynx, no angioedema, normal voice, injected conjuctiva Neck: full range of motion, supple/symm/no masses Respiratory: chest non-tender, lungs clear, normal breath sounds, no retraction , no accessory muscle use, speaking full sentences, other - tachypnea Cardiovascular no edema, tachycardia Gastrointestinal: normal bowel sounds, non tender, soft, non-distended, no guarding, no rebound Musculoskeletal: back normal, normal range of motion Skin: normal color, no rash, warm/dry, well hydrated Microbiology Date/Time Source Procedure Growth Status 10/11/17 19:05 Blood Blood Culture - Preliminary Gram Negative Fran Resulted 10/11/17 19:35 Nasal Nares Influenza Types A,B Antigen (KATHARINE) - Final Complete Laboratory Tests Test 10/12/17 11:27 10/12/17 16:30 10/13/17 04:10 Lactic Acid Level 3.30 mmol/L (0.66-2.22) H Urine Eosinophils None seen Urine Random Sodium 14 MEQ/L (20-110) L Urine Potassium Timed 109 mmol/L (12-62) H White Blood Count 24.2 K/UL (4.8-10.8) *H Red Blood Count 5.19 M/UL (4.70-6.10) Hemoglobin 15.2 G/DL (14.2-18.0) Hematocrit 45.3 % (42.0-52.0) Mean Corpuscular Volume 87 FL (80-99) Mean Corpuscular Hemoglobin 29.3 PG (27.0-31.0) Mean Corpuscular Hemoglobin Concent 33.6 G/DL (32.0-36.0) Red Cell Distribution Width 13.3 % (11.6-14.8) Platelet Count 135 K/UL (150-450) L Mean Platelet Volume 7.2 FL (6.5-10.1) Neutrophils (%) (Auto) % (45.0-75.0) Lymphocytes (%) (Auto) % (20.0-45.0) Monocytes (%) (Auto) % (1.0-10.0) Eosinophils (%) (Auto) % (0.0-3.0) Basophils (%) (Auto) % (0.0-2.0) Neutrophils % (Manual) Pending Lymphocytes % (Manual) Pending Platelet Estimate Pending Platelet Morphology Pending Sodium Level 142 MMOL/L (136-145) Potassium Level 4.0 MMOL/L (3.5-5.1) Chloride Level 109 MMOL/L (98-107) H Carbon Dioxide Level 27 MMOL/L (21-32) Anion Gap 7 mmol/L (5-15) Blood Urea Nitrogen 25 mg/dL (7-18) H Creatinine 1.3 MG/DL (0.55-1.30) Estimat Glomerular Filtration Rate > 60 mL/min (>60) Glucose Level 92 MG/DL (74-106) Calcium Level 8.4 MG/DL (8.5-10.1) L Phosphorus Level 3.5 MG/DL (2.5-4.9) Magnesium Level 2.6 MG/DL (1.8-2.4) H Total Bilirubin 0.5 MG/DL (0.2-1.0) Aspartate Amino Transf (AST/SGOT) 48 U/L (15-37) H Alanine Aminotransferase (ALT/SGPT) 42 U/L (12-78) Alkaline Phosphatase 73 U/L (46-116) Total Protein 6.6 G/DL (6.4-8.2) Albumin 2.6 G/DL (3.4-5.0) L Globulin 4.0 g/dL Albumin/Globulin Ratio 0.6 (1.0-2.7) L Valproic Acid (Depakene) Level 32 MCG/ML (50-100) L Current Medications Medications (Trade) Dose Ordered Sig/Olvin Route PRN Reason Start Time Stop Time Status Last Admin Dose Admin Acetaminophen (Tylenol) 650 mg Q4H PRN ORAL fever (temp>100.5F) 10/12/17 16:15 11/10/17 20:14 10/12/17 22:50 Al Hydroxide/Mg Hydroxide (Mylanta II) 30 ml Q6H PRN ORAL dyspepsia 10/12/17 20:15 11/10/17 20:14 Albuterol/ Ipratropium (Albuterol/ Ipratropium) 3 ml Q4H PRN HHN Shortness of Breath 10/12/17 16:15 10/16/17 20:14 Aspirin (Ecotrin) 81 mg DAILY ORAL 10/13/17 09:00 11/12/17 08:59 10/13/17 08:54 Atorvastatin Calcium (Lipitor) 10 mg BEDTIME ORAL 10/12/17 21:00 11/11/17 20:59 10/12/17 22:47 Cefepime HCl 2 gm/ Sodium Chloride 55 ml @ 110 mls/hr DAILY@2000 IV 10/12/17 20:00 10/19/17 19:59 10/12/17 20:33 Dextrose/Sodium Chloride 1,000 ml @ 75 mls/hr [id number] IV 10/12/17 15:30 11/11/17 15:29 10/13/17 04:18 Heparin Sodium (Porcine) (Heparin 5000 units/ml) 5,000 units EVERY 12 HOURS SUBQ 10/12/17 21:00 11/10/17 21:59 10/13/17 08:57 Metoprolol Tartrate (Lopressor) 25 mg DAILY ORAL 10/12/17 22:45 11/11/17 22:44 10/13/17 08:55 Nitroglycerin (Ntg) 0.4 mg Q5M PRN SL Prn Chest Pain 10/12/17 15:05 11/10/17 20:14 Ondansetron HCl (Zofran) 4 mg Q6H PRN IVP Nausea & Vomiting 10/12/17 20:15 11/10/17 20:14 Oseltamivir Phosphate (Tamiflu) 75 mg TWICE A DAY ORAL 10/12/17 21:00 10/17/17 23:59 10/12/17 22:48 Pantoprazole (Protonix) 40 mg DAILY IVP 10/13/17 09:00 11/12/17 08:59 10/13/17 08:55 Polyethylene Glycol (Miralax) 17 gm DAILYPRN PRN ORAL Constipation 10/12/17 20:15 11/10/17 20:14 Promethazine HCl/ Codeine (Phenergan with Codeine) 5 ml Q4H PRN ORAL For Cough 10/12/17 16:15 11/10/17 20:14 Temazepam (Restoril) 15 mg HSPRN PRN ORAL Insomnia 10/12/17 20:15 10/18/17 20:14 Vancomycin HCl (Vanco rx to dose) 1 ea DAILY PRN MISC Per rx protocol 10/13/17 09:00 11/10/17 20:14 Vancomycin HCl 1 gm/Dextrose 275 ml @ 183.708 mls/hr Q24H IVPB 10/12/17 21:00 10/17/17 20:59 10/12/17 21:48 Alessia Akers M.D. Oct 13, 2017 09:42
--- NOTE | 2017-10-13 09:51 | Diagnostic Imaging Report ---
Indication: Post nasogastric tube advancement Technique: Supine view of the abdomen Comparison: 2 hours earlier Findings: Interval advancement of nasogastric tube, tip at level gastric fundus, proximal port well beyond the gastroesophageal junction. Considerable gas is seen in nondilated large and small bowel loops. Impression: Improved position of nasogastric tube, over 2 hours, now satisfactory. This agrees with the preliminary interpretation provided overnight by [facility] teleradiology service.
[2017-10-13] MEDS: Oseltamivir 75mg cap ORAL SCH ×2 (10:28→18:45)
--- NOTE | 2017-10-13 11:03 | Diagnostic Imaging Report ---
Indication: Shortness of breath Technique: One view of the chest Comparison: October 12, 2017 Findings: There is bilateral perihilar atelectasis and central bronchial wall thickening again demonstrated. Interim placement of a nasogastric tube, tip projecting at the lower gastric fundus, proximal port well beyond the gastroesophageal junction. No focal airspace consolidation. No effusions. The heart size is upper limits of normal. Impression: Satisfactory nasogastric intubation No acute process. Findings as noted
[2017-10-13] MEDS: Meropenem 1 GM in NS 55 ML IVPB SCH ×2 (11:37→22:16)
[2017-10-13 12:00] VITALS: BP 134/84
[2017-10-13 16:00] VITALS: BP_SYST 137; BP_DIAS 90; BP_DIAS 91
[2017-10-13] MEDS ORDERED: Tubing IV Secondary IV ONE (16:36)
[2017-10-13] MEDS ORDERED: NS 500ML ONE (16:36)
[2017-10-13] MEDS ORDERED: D5 1/2NS 1000ml IV ONE (16:36)
[2017-10-13 20:00] VITALS: BP 158/89
[2017-10-13] MEDS: Vancomycin 1 GM in D5W 275 ML IVPB SCH (21:21)
[2017-10-14] VITALS (7 sets, daily range): BP systolic 152–173; BP diastolic 102–111
[2017-10-14] MEDS: Meropenem 1 GM in NS 55 ML IVPB SCH ×3 (05:42→22:11)
[2017-10-14 06:15] LABS: HEMATOCRIT 41.3 % (42.0-52.0); HEMOGLOBIN 13.9 G/DL (14.2-18.0); MEAN CORPUSCULAR VOLUME 86 FL (80-99); PLATELET COUNT 128 K/UL (150-450); RED BLOOD COUNT 4.81 M/UL (4.70-6.10); WHITE BLOOD COUNT 18.9 K/UL (4.8-10.8)
[2017-10-14 06:35] LABS: ALANINE AMINOTRANSFERASE 28 U/L (12-78); ALBUMIN 2.1 G/DL (3.4-5.0); ALBUMIN/GLOBULIN RATIO 0.5 (1.0-2.7); ALKALINE PHOSPHATASE 91 U/L (46-116); ANION GAP 6 mmol/L (5-15); ASPARTATE AMINO TRANSFERASE 36 U/L (15-37); BILIRUBIN,TOTAL 0.6 MG/DL (0.2-1.0); BLOOD UREA NITROGEN 17 mg/dL (7-18); CALCIUM 8.5 MG/DL (8.5-10.1); CARBON DIOXIDE 25 MMOL/L (21-32); CHLORIDE 109 MMOL/L (98-107); CREATININE 0.8 MG/DL (0.55-1.30); POTASSIUM 3.7 MMOL/L (3.5-5.1); SODIUM 139 MMOL/L (136-145)
[2017-10-14] MEDS: D5 1/2NS 1,000 ML IV SCH ×2 (06:35→18:30)
[2017-10-14] MEDS: Pantoprazole Inj IVP SCH (08:29)
[2017-10-14] MEDS: Metoprolol 25mg tab ORAL SCH ×2 (08:30→21:11)
[2017-10-14] MEDS: Heparin 5000 units/ml inj SUBQ SCH ×2 (08:31→21:12)
[2017-10-14] MEDS: Aspirin EC 81mg tab ORAL SCH (08:33)
[2017-10-14] MEDS: Oseltamivir 75mg cap ORAL SCH ×2 (09:33→17:13)
--- NOTE | 2017-10-14 11:11 | Pulmonology Progress Note ---
Assessment/Plan Assessment/Plan ASSESSMENT Acute hypoxemic RF requiring BiPAP-resolved severe sepsis gram negative bacteremia (due to UTI) gram-negative UTI acute bronchitis possible influenza JULIA-resolved lactic acidosis 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 seizure disorder HTN CAD with hx of PR dysphagia, dementia R lateral malleolus DTI PLAN OF CARE SANTOS off BiPAP, Titrate O2, needs 5 L ofO2 still HHN CXR negative, fup with CXR in am ID follows blood cx + GNR, urine cx + GNR Influenza negative ( but rapid test with only sensitivity 60-65%, by history high suspicion for flu) Empiric Tamiflu and abx Stool C dif CTA no PE neuro eval seizure precautions, Depakote level subtherapeutic, resume Depakote strict asp precautions, tube feeding, monitor tolerance ECHO with pEF 60-65% Continue ASA, BB, statin IVF, monitor renal parameters, lytes, correct as needed Renal US avoid nephrotoxic DVT GI prophylaxis Swallow eval in am -repeat NGT with TF, strict aspiration precautions case discussed and evaluated by supervising physician Subjective Allergies: Coded Allergies: NO KNOWN ALLERGIES (Unverified Allergy, Unknown, 09/03/15) Subjective leukocytosis with trend down,afebrile creat down to normal no signs of distress, pulse ox 91% on 5 L via NC Objective Last 24 Hour Vital Signs Date Time Temp Pulse Resp B/P (MAP) Pulse Ox O2 Delivery O2 Flow Rate FiO2 10/14/17 09:32 97.9 10/14/17 08:30 120 157/111 10/14/17 08:15 Nasal Cannula 5.0 10/14/17 08:15 91 Nasal Cannula 5.0 10/14/17 08:13 97.9 120 23 157/111 98 Nasal Cannula 3.0 10/14/17 07:53 111 10/14/17 04:00 98.5 110 20 152/107 96 Nasal Cannula 3.0 10/14/17 03:41 110 10/14/17 00:00 119 10/14/17 00:00 98.4 118 20 159/107 94 Nasal Cannula 3.0 10/13/17 20:00 117 10/13/17 20:00 98.7 116 20 158/89 97 Nasal Cannula 3.0 10/13/17 19:30 Nasal Cannula 3.0 10/13/17 19:30 97 Nasal Cannula 3.0 10/13/17 16:59 112 10/13/17 16:00 98.2 107 22 137/90 96 Nasal Cannula 3.0 10/13/17 12:00 100 10/13/17 12:00 98.6 100 21 134/84 92 Nasal Cannula 3.0 Intake and Output 10/13/17 10/14/17 19:00 07:00 Intake Total 960 ml 1921.000 ml Output Total 600 ml Balance 960 ml 1321.000 ml Free Water 50 ml 100 ml IV Total 880 ml 1391.000 ml Tube Feeding 30 ml 430 ml Output Urine Total 600 ml # Bowel Movements 2 2 Objective General: NAD, more awake and responsive HEENT: normocephalic, atraumatic, , NGT Respiratory/Chest: lungs clear, no respiratory distress Cardiovascular: no JVD, tachycardia - ST 110-120 Abdomen: normal bowel sounds, soft, non tender, non distended Extremities: no edema, pedal pulses normal Neurologic/Psychiatric: abnormal gait Microbiology Date/Time Source Procedure Growth Status 10/11/17 19:15 Blood Blood Culture - Preliminary Gram Negative Fran Resulted 10/11/17 19:05 Blood Blood Culture - Preliminary Gram Negative Fran Resulted 10/11/17 19:35 Nasal Nares MRSA Culture - Final NO METHICILLIN RESISTANT STAPH AUREUS... Complete 10/11/17 19:35 Nasal Nares Influenza Types A,B Antigen (KATHARINE) - Final Complete 10/12/17 04:30 Urine,Clean Catch Urine Culture - Preliminary Gram Negative Fran Resulted 10/11/17 19:35 Rectum VRE Culture - Final NO VANCOMYCIN RESISTANT ENTEROCOCCUS ... Complete Laboratory Tests 10/14/17 05:10: White Blood Count 18.9H, Red Blood Count 4.81, Hemoglobin 13.9L, Hematocrit 41.3L, Mean Corpuscular Volume 86, Mean Corpuscular Hemoglobin 29.0, Mean Corpuscular Hemoglobin Concent 33.7, Red Cell Distribution Width 13.0, Platelet Count 128L, Mean Platelet Volume 7.7, Neutrophils (%) (Auto) , Lymphocytes (%) ( Auto) , Monocytes (%) (Auto) , Eosinophils (%) (Auto) , Basophils (%) (Auto) , Differential Total Cells Counted 100, Neutrophils % (Manual) 71, Lymphocytes % ( Manual) 15L, Monocytes % (Manual) 3, Eosinophils % (Manual) 0, Basophils % ( Manual) 0, Band Neutrophils 11H, Platelet Estimate DecreasedL, Platelet Morphology Normal, Red Blood Cell Morphology Normal, Sodium Level 139, Potassium Level 3.7, Chloride Level 109H, Carbon Dioxide Level 25, Anion Gap 6, Blood Urea Nitrogen 17, Creatinine 0.8, Estimat Glomerular Filtration Rate > 60 , Glucose Level 114H, Lactic Acid Level 1.50, Calcium Level 8.5, Total Bilirubin 0.6, Aspartate Amino Transf (AST/SGOT) 36, Alanine Aminotransferase ( ALT/SGPT) 28, Alkaline Phosphatase 91, Total Protein 6.2L, Albumin 2.1L, Globulin 4.1, Albumin/Globulin Ratio 0.5L Current Medications Medications (Trade) Dose Ordered Sig/Olvin Route PRN Reason Start Time Stop Time Status Last Admin Dose Admin Acetaminophen (Tylenol) 650 mg Q4H PRN ORAL Mild Pain/Temp > 100.5 10/14/17 08:15 11/13/17 08:14 10/14/17 08:33 Al Hydroxide/Mg Hydroxide (Mylanta II) 30 ml Q6H PRN ORAL dyspepsia 10/12/17 20:15 11/10/17 20:14 Albuterol/ Ipratropium (Albuterol/ Ipratropium) 3 ml Q4H PRN HHN Shortness of Breath 10/12/17 16:15 10/16/17 20:14 Aspirin (Ecotrin) 81 mg DAILY ORAL 10/13/17 09:00 11/12/17 08:59 10/14/17 08:33 Atorvastatin Calcium (Lipitor) 10 mg BEDTIME ORAL 10/12/17 21:00 11/11/17 20:59 10/13/17 21:21 Dextrose/Sodium Chloride 1,000 ml @ 75 mls/hr [id number] IV 10/12/17 15:30 11/11/17 15:29 10/14/17 06:35 Heparin Sodium (Porcine) (Heparin 5000 units/ml) 5,000 units EVERY 12 HOURS SUBQ 10/12/17 21:00 11/10/17 21:59 10/14/17 08:31 Meropenem 1 gm/ Sodium Chloride 55 ml @ 110 mls/hr Q8HR IVPB 10/13/17 11:00 2/8/18 10:59 10/14/17 05:42 Metoprolol Tartrate (Lopressor) 25 mg DAILY ORAL 10/12/17 22:45 11/11/17 22:44 10/14/17 08:30 Nitroglycerin (Ntg) 0.4 mg Q5M PRN SL Prn Chest Pain 10/12/17 15:05 11/10/17 20:14 Ondansetron HCl (Zofran) 4 mg Q6H PRN IVP Nausea & Vomiting 10/12/17 20:15 11/10/17 20:14 Oseltamivir Phosphate (Tamiflu) 75 mg TWICE A DAY ORAL 10/12/17 21:00 10/17/17 23:59 10/14/17 09:33 Pantoprazole (Protonix) 40 mg DAILY IVP 10/13/17 09:00 11/12/17 08:59 10/14/17 08:29 Polyethylene Glycol (Miralax) 17 gm DAILYPRN PRN ORAL Constipation 10/12/17 20:15 11/10/17 20:14 Promethazine HCl/ Codeine (Phenergan with Codeine) 5 ml Q4H PRN ORAL For Cough 10/12/17 16:15 11/10/17 20:14 Temazepam (Restoril) 15 mg HSPRN PRN ORAL Insomnia 10/12/17 20:15 10/18/17 20:14 10/13/17 23:01 Vancomycin HCl (Vanco rx to dose) 1 ea DAILY PRN MISC Per rx protocol 10/13/17 09:00 11/10/17 20:14 Vancomycin HCl 1 gm/Dextrose 275 ml @ 183.708 mls/hr Q24H IVPB 10/12/17 21:00 10/17/17 20:59 10/13/17 21:21 Anson (Alfonzo)Pippa NP Oct 14, 2017 11:11
[2017-10-14] MEDS ORDERED: Albuterol/Ipratropium 3ml neb HHN PRN (11:30)
--- NOTE | 2017-10-14 16:53 | Cardiology Report ---
APPROVED REPORT EKG Measurement Heart [id number] FL [id number] Sinus tachycardia Nonspecific ST abnormality Abnormal ECG
[2017-10-14] MEDS ORDERED: Vancomycin 1.5gm/D5W 250ml 250 ML IVPB SCH (23:00)
[2017-10-15] VITALS (7 sets, daily range): BP systolic 148–165; BP diastolic 87–106
[2017-10-15] MEDS: Meropenem 1 GM in NS 55 ML IVPB SCH (06:01)
[2017-10-15 06:15] LABS: BASOPHILS % (AUTO) 0.8 % (0.0-2.0); EOSINOPHILS % (AUTO) 0.5 % (0.0-3.0); HEMATOCRIT 41.4 % (42.0-52.0); HEMOGLOBIN 14.2 G/DL (14.2-18.0); LYMPHOCYTES % (AUTO) 7.2 % (20.0-45.0); MEAN CORPUSCULAR VOLUME 85 FL (80-99); MONOCYTES % (AUTO) 11.2 % (1.0-10.0); NEUTROPHILS % (AUTO) 80.4 % (45.0-75.0); PLATELET COUNT 178 K/UL (150-450); RED BLOOD COUNT 4.88 M/UL (4.70-6.10); RED CELL DISTRIBUTION WIDTH 12.6 % (11.6-14.8); WHITE BLOOD COUNT 15.6 K/UL (4.8-10.8)
[2017-10-15 06:18] LABS: ANION GAP 4 mmol/L (5-15); BLOOD UREA NITROGEN 14 mg/dL (7-18); CALCIUM 8.7 MG/DL (8.5-10.1); CARBON DIOXIDE 27 MMOL/L (21-32); CHLORIDE 106 MMOL/L (98-107); CREATININE 0.8 MG/DL (0.55-1.30); POTASSIUM 3.6 MMOL/L (3.5-5.1); SODIUM 137 MMOL/L (136-145)
[2017-10-15] MEDS: Pantoprazole Inj IVP SCH ×2 (08:12→17:34)
[2017-10-15] MEDS: Oseltamivir 75mg cap ORAL SCH ×2 (08:12→17:35)
[2017-10-15] MEDS: Metoprolol 25mg tab ORAL SCH (08:13)
[2017-10-15] MEDS: Aspirin EC 81mg tab ORAL SCH (08:13)
[2017-10-15] MEDS: Heparin 5000 units/ml inj SUBQ SCH ×2 (08:15→21:00)
--- NOTE | 2017-10-15 10:58 | Cardiology Report ---
APPROVED REPORT EXAM: Two-dimensional and M-mode echocardiogram with Doppler and color Doppler. INDICATION Tachycardia M-Mode DIMENSIONS IVSd1.4 (0.7-1.1cm)Left Atrium (MM)2.3 (1.6-4.0cm) LVDd3.4 (3.5-5.6cm)Aortic Root3.6 (2.0-3.7cm) PWd1.1 (0.7-1.1cm)Aortic Cusp Exc.2.0 (1.5-2.0cm) LVDs2.2 (2.5-4.0cm) PWs1.6 cm Normal left ventricular chamber size, systolic function and wall motion. Left ventricular ejection fraction estimated to be 60-65 %. Mild left ventricular hypertrophy. No evidence of pericardial effusion. All other cardiac chamber sizes are within normal limits. Focal aortic valve sclerosis with adequate cusp excursion. Thickened mitral valve leaflets with normal excursion. Mild mitral annulus and aortic root calcification. Normal pulmonic valve structure. Normal tricuspid valve structure. IVC at normal size with physiologic collapse. A color flow and spectral Doppler study was performed and revealed: No aortic regurgitation. No mitral regurgitation. Mitral diastolic velocities suggest mild left ventricular dysfunction (Grade I ). Trace tricuspid regurgitation. Tricuspid systolic velocities suggests peak right ventricular systolic pressure of 21 mmHg. Trace pulmonic regurgitation present.
[2017-10-15] MEDS ORDERED: Vancomycin 1250mg/D5W 250ml 250 ML IVPB SCH (11:00)
--- NOTE | 2017-10-15 12:15 | Pulmonology Progress Note ---
Assessment/Plan Problems: (1) Bacteremia (2) Hypoxemia (3) Obstructive hydrocephalus (4) Renal failure (5) CVA, old, hemiparesis (6) Dementia Assessment/Plan improvng wbc decreasing awaiting swallow study check electrolytes check cultures dvt prophylaxis might need Gtube. Subjective ROS Limited/Unobtainable: No Interval Events: awake, comfortable Allergies: Coded Allergies: NO KNOWN ALLERGIES (Unverified Allergy, Unknown, 09/03/15) Objective Last 24 Hour Vital Signs Date Time Temp Pulse Resp B/P (MAP) Pulse Ox O2 Delivery O2 Flow Rate FiO2 10/15/17 08:13 112 165/106 10/15/17 08:00 98.7 112 20 165/106 98 Nasal Cannula 3.0 10/15/17 08:00 98 10/15/17 07:57 Nasal Cannula 3.0 10/15/17 07:56 93 Nasal Cannula 3.0 10/15/17 04:00 98.5 91 24 156/96 98 Nasal Cannula 3.0 10/15/17 04:00 99 10/15/17 00:00 98.8 97 24 162/104 Nasal Cannula 3.0 10/15/17 00:00 96 10/14/17 23:37 Nasal Cannula 5.0 10/14/17 23:37 95 Nasal Cannula 5.0 10/14/17 21:11 107 152/106 10/14/17 20:00 103 10/14/17 20:00 98.4 108 152/106 Nasal Cannula 3.0 10/14/17 18:18 99.0 164/109 Nasal Cannula 3.0 10/14/17 18:12 99.0 10/14/17 16:45 100.6 108 22 173/102 96 Nasal Cannula 3.0 10/14/17 16:24 103 Intake and Output 10/14/17 10/15/17 19:00 07:00 Intake Total 1435 ml 1155 ml Output Total 750 ml 700 ml Balance 685 ml 455 ml Free Water 150 ml 60 ml IV Total 805 ml 655 ml Tube Feeding 480 ml 440 ml Output Urine Total 750 ml 700 ml # Bowel Movements 2 General Appearance: WD/WN HEENT: normocephalic, atraumatic Respiratory/Chest: chest wall non-tender, lungs clear Cardiovascular: normal peripheral pulses, normal rate Abdomen: normal bowel sounds, soft, non tender Genitourinary: normal external genitalia Extremities: no cyanosis 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, abnormal gait Lymphatic: no groin adenopathy Microbiology Date/Time Source Procedure Growth Status 10/13/17 14:30 Blood Blood Culture - Preliminary NO GROWTH AFTER 24 HOURS Resulted 10/13/17 14:25 Blood Blood Culture - Preliminary NO GROWTH AFTER 24 HOURS Resulted Laboratory Tests 10/14/17 19:45: Vancomycin Level Trough 3.7L 10/15/17 05:30: White Blood Count 15.6H, Red Blood Count 4.88, Hemoglobin 14.2, Hematocrit 41.4L , Mean Corpuscular Volume 85, Mean Corpuscular Hemoglobin 29.1, Mean Corpuscular Hemoglobin Concent 34.3, Red Cell Distribution Width 12.6, Platelet Count 178, Mean Platelet Volume 8.2, Neutrophils (%) (Auto) 80.4H, Lymphocytes ( %) (Auto) 7.2L, Monocytes (%) (Auto) 11.2H, Eosinophils (%) (Auto) 0.5, Basophils (%) (Auto) 0.8, Sodium Level 137, Potassium Level 3.6, Chloride Level 106, Carbon Dioxide Level 27, Anion Gap 4L, Blood Urea Nitrogen 14, Creatinine 0.8, Estimat Glomerular Filtration Rate > 60, Glucose Level 126H, Calcium Level 8.7 10/15/17 09:35: Arterial Blood pH 7.452H, Arterial Blood Partial Pressure CO2 38.3, Arterial Blood Partial Pressure O2 75.7, Arterial Blood HCO3 26.1H, Arterial Blood Oxygen Saturation 95.9, Arterial Blood Base Excess 2.2, Dipak Test Positive Current Medications Medications (Trade) Dose Ordered Sig/Olvin Route PRN Reason Start Time Stop Time Status Last Admin Dose Admin Acetaminophen (Tylenol) 650 mg Q4H PRN ORAL Mild Pain/Temp > 100.5 10/14/17 08:15 11/13/17 08:14 10/14/17 17:13 Al Hydroxide/Mg Hydroxide (Mylanta II) 30 ml Q6H PRN ORAL dyspepsia 10/12/17 20:15 11/10/17 20:14 Albuterol/ Ipratropium (Albuterol/ Ipratropium) 3 ml Q4H PRN HHN Shortness of Breath 10/14/17 11:30 10/18/17 11:29 Aspirin (Ecotrin) 81 mg DAILY ORAL 10/13/17 09:00 11/12/17 08:59 10/15/17 08:13 Atorvastatin Calcium (Lipitor) 10 mg BEDTIME ORAL 10/12/17 21:00 11/11/17 20:59 10/14/17 21:11 Dextrose/Sodium Chloride 1,000 ml @ 50 mls/hr Q20H IV 10/14/17 18:45 11/13/17 18:44 10/14/17 18:30 Heparin Sodium (Porcine) (Heparin 5000 units/ml) 5,000 units EVERY 12 HOURS SUBQ 10/12/17 21:00 11/10/17 21:59 10/15/17 08:15 Hydralazine HCl (Apresoline) 5 mg Q6H PRN IV sbp > 170 10/14/17 18:15 11/13/17 18:14 Meropenem 1 gm/ Sodium Chloride 55 ml @ 110 mls/hr Q8HR IVPB 10/13/17 11:00 10/18/17 10:59 10/15/17 06:01 Metoprolol Tartrate (Lopressor) 25 mg Q12HR ORAL 10/14/17 21:00 11/13/17 20:59 10/15/17 08:13 Nitroglycerin (Ntg) 0.4 mg Q5M PRN SL Prn Chest Pain 10/12/17 15:05 11/10/17 20:14 Ondansetron HCl (Zofran) 4 mg Q6H PRN IVP Nausea & Vomiting 10/12/17 20:15 11/10/17 20:14 Oseltamivir Phosphate (Tamiflu) 75 mg TWICE A DAY ORAL 10/12/17 21:00 10/17/17 23:59 10/15/17 08:12 Pantoprazole (Protonix) 40 mg DAILY IVP 10/13/17 09:00 11/12/17 08:59 10/15/17 08:12 Polyethylene Glycol (Miralax) 17 gm DAILYPRN PRN ORAL Constipation 10/12/17 20:15 11/10/17 20:14 Promethazine HCl/ Codeine (Phenergan with Codeine) 5 ml Q4H PRN ORAL For Cough 10/12/17 16:15 11/10/17 20:14 Temazepam (Restoril) 15 mg HSPRN PRN ORAL Insomnia 10/12/17 20:15 10/18/17 20:14 10/13/17 23:01 Vancomycin HCl (Vanco rx to dose) 1 ea DAILY PRN MISC Per rx protocol 10/13/17 09:00 11/10/17 20:14 Vancomycin HCl (Vanco rx to dose) 1 ea DAILYPRN PRN MISC RX TO DOSE PROTOCOL 10/14/17 21:30 11/13/17 21:29 Vancomycin HCl/ Dextrose 250 ml @ 125 mls/hr ONCE IVPB 10/14/17 23:00 10/19/17 22:59 10/14/17 23:09 Vancomycin HCl/ Dextrose 250 ml @ 166.667 mls/hr Q12HR@1100,2300 IVPB 10/15/17 11:00 10/20/17 10:59 10/15/17 11:15 EDDIE COLES Oct 15, 2017 12:15
--- NOTE | 2017-10-15 12:26 | Infectious Diseases Prog Note ---
Assessment/Plan Assessment/Plan Assessment: Severe Sepsis- 2ry to E.coli UTI w/ bacteremia and bronchitis; suspicion for Flu despite rapid test (+URI symptoms, sick contacts) -Bcx 2/1 3/4 E.coli (tolliver S); 2/3 NTD -u/a wbc 15-20, nit +, leuk +3; Ucx <10k E.coli (tolliver S) -REnal US: Limited exam. No definite hydronephrosis. Empty bladder, containing a Cervantes catheter. Acute hypoxic resp failure- improving, on NC now -CXR: : No acute findings -Influenza neg Fever/leukocytosis- improving; 2ry to above JULIA, reslved Lactic acidosis, resolved CVA with hemiplegia, HTN, cataract, dysphagia, hx of fall, CAD/[place], CVA/TIA, dementia, seizure disorder Plan: -D/c empiric IV Vanco #5 - Switch Meropenem #3 (abx d#/) to Ceftriaxone 2 g qd; upon discharge can be transitioned to PO Cipro 750mg bid -2/3 SP Cefepime #3 -continue empiric Tamiflu #4/5 -low threshold for contrast CT abd/p if recurrent bacteremia, persistent/ worsening fever/leukocytosis -f/u cx -Monitor CBC/BMP, temperatures; Trend WBC -aspiration precautions Thank you for this consultation. Will continue to follow along with you. Discussed with RN. Subjective Allergies: Coded Allergies: NO KNOWN ALLERGIES (Unverified Allergy, Unknown, 09/03/15) Subjective Tm 100.6, afebrile >12hrs leukocytosis improvnig repeat Bcx NTD Objective Vital Signs Last 24 Hour Vital Signs Date Time Temp Pulse Resp B/P (MAP) Pulse Ox O2 Delivery O2 Flow Rate FiO2 10/15/17 08:13 112 165/106 10/15/17 08:00 98.7 112 20 165/106 98 Nasal Cannula 3.0 10/15/17 08:00 98 10/15/17 07:57 Nasal Cannula 3.0 10/15/17 07:56 93 Nasal Cannula 3.0 10/15/17 04:00 98.5 91 24 156/96 98 Nasal Cannula 3.0 10/15/17 04:00 99 10/15/17 00:00 98.8 97 24 162/104 Nasal Cannula 3.0 10/15/17 00:00 96 10/14/17 23:37 Nasal Cannula 5.0 10/14/17 23:37 95 Nasal Cannula 5.0 10/14/17 21:11 107 152/106 10/14/17 20:00 103 10/14/17 20:00 98.4 108 152/106 Nasal Cannula 3.0 10/14/17 18:18 99.0 164/109 Nasal Cannula 3.0 10/14/17 18:12 99.0 10/14/17 16:45 100.6 108 22 173/102 96 Nasal Cannula 3.0 10/14/17 16:24 103 Height (Feet): 5 Height (Inches): 7.00 Weight (Pounds): 175 Objective General Appearance: alert, moderate distress, Chronically Ill Head: normocephalic, atraumatic ENT: hearing grossly normal, normal pharynx, no angioedema, normal voice, injected conjuctiva Neck: full range of motion, supple/symm/no masses Respiratory: chest non-tender, lungs clear, normal breath sounds, no retraction , no accessory muscle use, speaking full sentences, other - tachypnea Cardiovascular no edema, tachycardia Gastrointestinal: normal bowel sounds, non tender, soft, non-distended, no guarding, no rebound Musculoskeletal: back normal, normal range of motion Skin: normal color, no rash, warm/dry, well hydrated Microbiology Date/Time Source Procedure Growth Status 10/13/17 14:30 Blood Blood Culture - Preliminary NO GROWTH AFTER 24 HOURS Resulted 10/13/17 14:25 Blood Blood Culture - Preliminary NO GROWTH AFTER 24 HOURS Resulted Laboratory Tests Test 10/14/17 19:45 10/15/17 05:30 10/15/17 09:35 Vancomycin Level Trough 3.7 ug/mL (5.0-12.0) L White Blood Count 15.6 K/UL (4.8-10.8) H Red Blood Count 4.88 M/UL (4.70-6.10) Hemoglobin 14.2 G/DL (14.2-18.0) Hematocrit 41.4 % (42.0-52.0) L Mean Corpuscular Volume 85 FL (80-99) Mean Corpuscular Hemoglobin 29.1 PG (27.0-31.0) Mean Corpuscular Hemoglobin Concent 34.3 G/DL (32.0-36.0) Red Cell Distribution Width 12.6 % (11.6-14.8) Platelet Count 178 K/UL (150-450) Mean Platelet Volume 8.2 FL (6.5-10.1) Neutrophils (%) (Auto) 80.4 % (45.0-75.0) H Lymphocytes (%) (Auto) 7.2 % (20.0-45.0) L Monocytes (%) (Auto) 11.2 % (1.0-10.0) H Eosinophils (%) (Auto) 0.5 % (0.0-3.0) Basophils (%) (Auto) 0.8 % (0.0-2.0) Sodium Level 137 MMOL/L (136-145) Potassium Level 3.6 MMOL/L (3.5-5.1) Chloride Level 106 MMOL/L (98-107) Carbon Dioxide Level 27 MMOL/L (21-32) Anion Gap 4 mmol/L (5-15) L Blood Urea Nitrogen 14 mg/dL (7-18) Creatinine 0.8 MG/DL (0.55-1.30) Estimat Glomerular Filtration Rate > 60 mL/min (>60) Glucose Level 126 MG/DL (74-106) H Calcium Level 8.7 MG/DL (8.5-10.1) Arterial Blood pH 7.452 (7.350-7.450) Arterial Blood Partial Pressure CO2 38.3 mmHg (35.0-45.0) Arterial Blood Partial Pressure O2 75.7 mmHg (75.0-100.0) Arterial Blood HCO3 26.1 mmol/L (22.0-26.0) H Arterial Blood Oxygen Saturation 95.9 % (92.0-98.0) Arterial Blood Base Excess 2.2 Dipak Test Positive Current Medications Medications (Trade) Dose Ordered Sig/Olvin Route PRN Reason Start Time Stop Time Status Last Admin Dose Admin Acetaminophen (Tylenol) 650 mg Q4H PRN ORAL Mild Pain/Temp > 100.5 10/14/17 08:15 11/13/17 08:14 10/14/17 17:13 Al Hydroxide/Mg Hydroxide (Mylanta II) 30 ml Q6H PRN ORAL dyspepsia 10/12/17 20:15 11/10/17 20:14 Albuterol/ Ipratropium (Albuterol/ Ipratropium) 3 ml Q4H PRN HHN Shortness of Breath 10/14/17 11:30 10/18/17 11:29 Aspirin (Ecotrin) 81 mg DAILY ORAL 10/13/17 09:00 11/12/17 08:59 10/15/17 08:13 Atorvastatin Calcium (Lipitor) 10 mg BEDTIME ORAL 10/12/17 21:00 11/11/17 20:59 10/14/17 21:11 Dextrose/Sodium Chloride 1,000 ml @ 50 mls/hr Q20H IV 10/14/17 18:45 11/13/17 18:44 10/14/17 18:30 Heparin Sodium (Porcine) (Heparin 5000 units/ml) 5,000 units EVERY 12 HOURS SUBQ 10/12/17 21:00 11/10/17 21:59 10/15/17 08:15 Hydralazine HCl (Apresoline) 5 mg Q6H PRN IV sbp > 170 10/14/17 18:15 11/13/17 18:14 Meropenem 1 gm/ Sodium Chloride 55 ml @ 110 mls/hr Q8HR IVPB 10/13/17 11:00 10/18/17 10:59 10/15/17 06:01 Metoprolol Tartrate (Lopressor) 25 mg Q12HR ORAL 10/14/17 21:00 11/13/17 20:59 10/15/17 08:13 Nitroglycerin (Ntg) 0.4 mg Q5M PRN SL Prn Chest Pain 10/12/17 15:05 11/10/17 20:14 Ondansetron HCl (Zofran) 4 mg Q6H PRN IVP Nausea & Vomiting 10/12/17 20:15 11/10/17 20:14 Oseltamivir Phosphate (Tamiflu) 75 mg TWICE A DAY ORAL 10/12/17 21:00 10/17/17 23:59 10/15/17 08:12 Pantoprazole (Protonix) 40 mg DAILY IVP 10/13/17 09:00 11/12/17 08:59 10/15/17 08:12 Polyethylene Glycol (Miralax) 17 gm DAILYPRN PRN ORAL Constipation 10/12/17 20:15 11/10/17 20:14 Promethazine HCl/ Codeine (Phenergan with Codeine) 5 ml Q4H PRN ORAL For Cough 10/12/17 16:15 11/10/17 20:14 Temazepam (Restoril) 15 mg HSPRN PRN ORAL Insomnia 10/12/17 20:15 10/18/17 20:14 10/13/17 23:01 Vancomycin HCl (Vanco rx to dose) 1 ea DAILY PRN MISC Per rx protocol 10/13/17 09:00 11/10/17 20:14 Vancomycin HCl (Vanco rx to dose) 1 ea DAILYPRN PRN MISC RX TO DOSE PROTOCOL 10/14/17 21:30 11/13/17 21:29 Vancomycin HCl/ Dextrose 250 ml @ 125 mls/hr ONCE IVPB 10/14/17 23:00 10/19/17 22:59 10/14/17 23:09 Vancomycin HCl/ Dextrose 250 ml @ 166.667 mls/hr Q12HR@1100,2300 IVPB 10/15/17 11:00 10/20/17 10:59 10/15/17 11:15 Alessia Akers M.D. Oct 15, 2017 12:26
[2017-10-15] MEDS ORDERED: cefTRIAXone 2 GM in NS 55 ML IVPB SCH (14:00)
--- NOTE | 2017-10-15 14:08 | Diagnostic Imaging Report ---
Indication: Reason For Exam: SOB Technique: One view of the chest Comparison: 10/13/2017 Findings: There is some perihilar atelectasis. Lungs and pleural spaces are otherwise clear. Heart size is normal. Nasogastric tube is again demonstrated. Findings are unchanged Impression: No acute process
[2017-10-15] MEDS: D5 1/2NS 1,000 ML IV SCH (14:45)
[2017-10-15] MEDS ORDERED: Promethazine/Codeine 5ml UD GT PRN (16:15)
[2017-10-15] MEDS ORDERED: Mylanta II UD 30ml GT PRN (17:00)
[2017-10-15] MEDS ORDERED: D5 1/2NS 1,000 ML IV SCH (17:00)
[2017-10-15] MEDS ORDERED: Nitroglycerin Subl 0.4mg tab SL PRN (17:00)
[2017-10-15] MEDS ORDERED: Miralax 17gm pkt GT PRN (17:00)
[2017-10-15] MEDS ORDERED: Albuterol/Ipratropium 3ml neb HHN PRN (17:00)
[2017-10-15] MEDS: Valproic Acid 250mg/5ml Liquid GT SCH (17:34)
[2017-10-15] MEDS: Metoprolol 25mg tab GT SCH (22:13)
[2017-10-16 00:05] VITALS: BP 140/80
[2017-10-16 04:21] VITALS: BP 145/73
[2017-10-16] MEDS: Valproic Acid 250mg/5ml Liquid GT SCH ×2 (05:09→17:53)
[2017-10-16 07:23] LABS: HEMATOCRIT 38.4 % (42.0-52.0); HEMOGLOBIN 13.2 G/DL (14.2-18.0); MEAN CORPUSCULAR VOLUME 85 FL (80-99); PLATELET COUNT 233 K/UL (150-450); RED BLOOD COUNT 4.53 M/UL (4.70-6.10); RED CELL DISTRIBUTION WIDTH 12.4 % (11.6-14.8); WHITE BLOOD COUNT 10.4 K/UL (4.8-10.8)
[2017-10-16 07:49] LABS: ALANINE AMINOTRANSFERASE 39 U/L (12-78); ALBUMIN 1.8 G/DL (3.4-5.0); ALBUMIN/GLOBULIN RATIO 0.4 (1.0-2.7); ALKALINE PHOSPHATASE 106 U/L (46-116); ANION GAP 8 mmol/L (5-15); ASPARTATE AMINO TRANSFERASE 26 U/L (15-37); BILIRUBIN,TOTAL 0.3 MG/DL (0.2-1.0); BLOOD UREA NITROGEN 17 mg/dL (7-18); CALCIUM 8.4 MG/DL (8.5-10.1); CARBON DIOXIDE 24 MMOL/L (21-32); CHLORIDE 104 MMOL/L (98-107); CREATININE 0.8 MG/DL (0.55-1.30); PHOSPHORUS 1.9 MG/DL (2.5-4.9); POTASSIUM 3.7 MMOL/L (3.5-5.1); SODIUM 136 MMOL/L (136-145)
[2017-10-16 08:13] VITALS: BP 149/107
[2017-10-16] MEDS: Pantoprazole Inj IVP SCH (08:34)
[2017-10-16] MEDS: Oseltamivir 75mg cap ORAL SCH ×2 (08:34→17:53)
[2017-10-16] MEDS: Metoprolol 25mg tab GT SCH ×2 (08:34→20:52)
[2017-10-16] MEDS: Heparin 5000 units/ml inj SUBQ SCH ×2 (08:35→20:53)
[2017-10-16] MEDS ORDERED: Aspirin Baby 81mg GT SCH (09:00)
[2017-10-16] MEDS ORDERED: Nitroglycerin Subl 0.4mg tab SL PRN (11:30)
--- NOTE | 2017-10-16 11:37 | Diagnostic Imaging Report ---
APPROVED REPORT CPT Code: 29218 Present Symptoms Comments: R/O DVT BILATERAL: Imaging reveals a patent deep venous system bilaterally. There is no evidence of thrombus within the femoral, popliteal or tibial segments. The greater saphenous veins are also within normal limits. Doppler indicates normal spontaneous flow within these segments.
[2017-10-16 12:00] VITALS: BP 147/94
[2017-10-16] MEDS ORDERED: Promethazine/Codeine 5ml UD GT PRN (12:15)
[2017-10-16] MEDS ORDERED: Miralax 17gm pkt GT PRN (12:30)
[2017-10-16] MEDS ORDERED: Mylanta II UD 30ml GT PRN (12:30)
[2017-10-16] MEDS ORDERED: Albuterol/Ipratropium 3ml neb HHN PRN (13:00)
--- NOTE | 2017-10-16 13:39 | Infectious Diseases Prog Note ---
Assessment/Plan Assessment/Plan Assessment: Severe Sepsis- 2ry to E.coli UTI w/ bacteremia and bronchitis; suspicion for Flu despite rapid test (+URI symptoms, sick contacts) -Bcx 2/ 3/4 E.coli (tolliver S); 2/3 NTD -u/a wbc 15-20, nit +, leuk +3; Ucx <10k E.coli (tolliver S) -REnal US: Limited exam. No definite hydronephrosis. Empty bladder, containing a Cervantes catheter. Acute hypoxic resp failure- previously improved, now worsened- r/o PNA -CXR 10/15: : No acute findings -Influenza neg Fever/leukocytosis- improving; 2ry to above JULIA, reslved Lactic acidosis, resolved CVA with hemiplegia, HTN, cataract, dysphagia, hx of fall, CAD/[place], CVA/TIA, dementia, seizure disorder Plan: - Continue Ceftriaxone 2 g qd abx d#02/21; upon discharge can be transitioned to PO Cipro 750mg bid -10/15 SP IV Vancomcyin #5, Meropenm #3 -10/13 SP Cefepime #3 -continue empiric Tamiflu #/ -CXR and sputum cx -low threshold for contrast CT abd/p if recurrent bacteremia, persistent/ worsening fever/leukocytosis -f/u cx -Monitor CBC/BMP, temperatures; Trend WBC -aspiration precautions Thank you for this consultation. Will continue to follow along with you. Discussed with RN. Subjective Allergies: Coded Allergies: NO KNOWN ALLERGIES (Unverified Allergy, Unknown, 09/03/15) Subjective low grade fever overnight, Tm 100.2 leukocytosis resolved bplaced on bipap as patient was found to be on resp distress, had large amount of white thick secretions. = Objective Vital Signs Last 24 Hour Vital Signs Date Time Temp Pulse Resp B/P (MAP) Pulse Ox O2 Delivery O2 Flow Rate FiO2 10/16/17 12:00 97.5 92 20 147/94 96 Simple Mask 5.0 10/16/17 10:21 84 19 98 Facial 60 10/16/17 09:11 99 19 94 Facial 30 10/16/17 08:54 Bi-pap 30 10/16/17 08:54 93 Bi-pap 10/16/17 08:53 116 30 Bi-pap 30 10/16/17 08:34 117 149/107 10/16/17 08:13 99.3 117 20 149/107 92 Nasal Cannula 2.0 10/16/17 04:21 94 Nasal Cannula 3.0 10/16/17 04:21 97.9 69 20 145/73 94 20 10/16/17 00:05 99.7 106 20 140/80 92 106 10/16/17 00:00 92 Nasal Cannula 3.0 10/15/17 22:13 20 148/87 10/15/17 21:00 100.0 112 20 148/87 94 Nasal Cannula 3.0 20 10/15/17 20:29 97 Nasal Cannula 5.0 10/15/17 20:29 Nasal Cannula 5.0 10/15/17 20:28 87 20 Nasal Cannula 3.0 32 10/15/17 20:21 100.2 114 20 153/106 92 20 10/15/17 16:00 99.0 99 20 153/89 98 Nasal Cannula 2.0 Height (Feet): 5 Height (Inches): 7.00 Weight (Pounds): 175 Objective General Appearance: alert, moderate distress, Chronically Ill Head: normocephalic, atraumatic ENT: hearing grossly normal, normal pharynx, no angioedema, normal voice, injected conjuctiva Neck: full range of motion, supple/symm/no masses Respiratory: chest non-tender, lungs clear, normal breath sounds, no retraction , no accessory muscle use, speaking full sentences, other - tachypnea Cardiovascular no edema, tachycardia Gastrointestinal: normal bowel sounds, non tender, soft, non-distended, no guarding, no rebound Musculoskeletal: back normal, normal range of motion Skin: normal color, no rash, warm/dry, well hydrated Microbiology Date/Time Source Procedure Growth Status 10/13/17 14:30 Blood Blood Culture - Preliminary NO GROWTH AFTER 48 HOURS Resulted 10/13/17 14:25 Blood Blood Culture - Preliminary NO GROWTH AFTER 48 HOURS Resulted Laboratory Tests Test 10/16/17 05:45 White Blood Count 10.4 K/UL (4.8-10.8) Red Blood Count 4.53 M/UL (4.70-6.10) L Hemoglobin 13.2 G/DL (14.2-18.0) L Hematocrit 38.4 % (42.0-52.0) L Mean Corpuscular Volume 85 FL (80-99) Mean Corpuscular Hemoglobin 29.0 PG (27.0-31.0) Mean Corpuscular Hemoglobin Concent 34.2 G/DL (32.0-36.0) Red Cell Distribution Width 12.4 % (11.6-14.8) Platelet Count 233 K/UL (150-450) Mean Platelet Volume 6.7 FL (6.5-10.1) Neutrophils (%) (Auto) % (45.0-75.0) Lymphocytes (%) (Auto) % (20.0-45.0) Monocytes (%) (Auto) % (1.0-10.0) Eosinophils (%) (Auto) % (0.0-3.0) Basophils (%) (Auto) % (0.0-2.0) Differential Total Cells Counted 100 Neutrophils % (Manual) 63 % (45-75) Lymphocytes % (Manual) 19 % (20-45) L Monocytes % (Manual) 18 % (1-10) H Eosinophils % (Manual) 0 % (0-3) Basophils % (Manual) 0 % (0-2) Band Neutrophils 0 % (0-8) Platelet Estimate Adequate Platelet Morphology Normal Red Blood Cell Morphology Normal Erythrocyte Sedimentation Rate 73 MM/HR (0-20) H Sodium Level 136 MMOL/L (136-145) Potassium Level 3.7 MMOL/L (3.5-5.1) Chloride Level 104 MMOL/L (98-107) Carbon Dioxide Level 24 MMOL/L (21-32) Anion Gap 8 mmol/L (5-15) Blood Urea Nitrogen 17 mg/dL (7-18) Creatinine 0.8 MG/DL (0.55-1.30) Estimat Glomerular Filtration Rate > 60 mL/min (>60) Glucose Level 130 MG/DL (74-106) H Calcium Level 8.4 MG/DL (8.5-10.1) L Phosphorus Level 1.9 MG/DL (2.5-4.9) L Magnesium Level 1.7 MG/DL (1.8-2.4) L Total Bilirubin 0.3 MG/DL (0.2-1.0) Aspartate Amino Transf (AST/SGOT) 26 U/L (15-37) Alanine Aminotransferase (ALT/SGPT) 39 U/L (12-78) Alkaline Phosphatase 106 U/L (46-116) Total Protein 6.3 G/DL (6.4-8.2) L Albumin 1.8 G/DL (3.4-5.0) L Globulin 4.5 g/dL Albumin/Globulin Ratio 0.4 (1.0-2.7) L Current Medications Medications (Trade) Dose Ordered Sig/Olvin Route PRN Reason Start Time Stop Time Status Last Admin Dose Admin Acetaminophen (Tylenol) 650 mg Q4H PRN ORAL Mild Pain/Temp > 100.5 10/16/17 12:15 11/13/17 08:14 Al Hydroxide/Mg Hydroxide (Mylanta II) 30 ml Q6H PRN GT dyspepsia 10/16/17 12:30 11/10/17 12:29 Albuterol/ Ipratropium (Albuterol/ Ipratropium) 3 ml Q4H PRN HHN Shortness of Breath 10/16/17 13:00 10/18/17 16:59 Aspirin (ASA) 81 mg DAILY GT 10/17/17 09:00 11/12/17 08:59 Atorvastatin Calcium (Lipitor) 10 mg BEDTIME GT 10/16/17 21:00 11/11/17 20:59 Ceftriaxone Sodium 2 gm/ Sodium Chloride 55 ml @ 110 mls/hr Q24H IVPB 10/16/17 14:00 10/22/17 13:59 Dextrose/Sodium Chloride 1,000 ml @ 50 mls/hr Q20H IV 10/16/17 12:30 11/13/17 12:29 Heparin Sodium (Porcine) (Heparin 5000 units/ml) 5,000 units EVERY 12 HOURS SUBQ 10/16/17 21:00 11/10/17 21:59 Metoprolol Tartrate (Lopressor) 25 mg Q12HR GT 10/16/17 21:00 11/13/17 20:59 Nitroglycerin (Ntg) 0.4 mg Q5MIN X 3 DOSES PRN SL Prn Chest Pain 10/16/17 11:30 11/14/17 16:59 Ondansetron HCl (Zofran) 4 mg Q6H PRN IVP Nausea & Vomiting 10/16/17 12:30 11/10/17 12:29 Oseltamivir Phosphate (Tamiflu) 75 mg TWICE A DAY ORAL 10/16/17 18:00 10/17/17 23:59 Pantoprazole (Protonix) 40 mg DAILY IVP 10/17/17 09:00 11/14/17 17:59 Polyethylene Glycol (Miralax) 17 gm DAILYPRN PRN GT Constipation 10/16/17 12:30 11/10/17 12:29 Promethazine HCl/ Codeine (Phenergan with Codeine) 5 ml Q4H PRN GT For Cough 10/16/17 12:15 11/10/17 20:14 Temazepam (Restoril) 15 mg HSPRN PRN GT Insomnia 10/16/17 21:00 10/18/17 20:59 Valproic Acid (Depakene) 250 mg Q12HR@0630,1830 GT 10/16/17 18:30 11/14/17 18:29 Alessia Akers M.D. Oct 16, 2017 13:39
[2017-10-16] MEDS ORDERED: cefTRIAXone 2 GM in NS 55 ML IVPB SCH (14:00)
[2017-10-16] MEDS: cefTRIAXone 2 GM in NS 55 ML IVPB SCH (15:26)
[2017-10-16] MEDS: D5 1/2NS 1,000 ML IV SCH (15:27)
[2017-10-16 16:00] VITALS: BP 173/100
--- NOTE | 2017-10-16 16:20 | Diagnostic Imaging Report ---
Indication: Shortness of breath Technique: One view of the chest Comparison: 10/15/2017 Findings: Stable position of nasogastric tube. Minimal perihilar and basilar interstitial prominence persists, unchanged. No effusions. Normal heart size Impression: Unchanged, over one day, findings as above.
[2017-10-16 20:00] VITALS: BP 114/72
--- NOTE | 2017-10-16 20:14 | Pulmonology Progress Note ---
Assessment/Plan Problems: (1) Bacteremia (2) Hypoxemia (3) Obstructive hydrocephalus (4) Renal failure (5) CVA, old, hemiparesis (6) Dementia Assessment/Plan bipap prn cxr wbc decreasing awaiting swallow study check electrolytes check cultures dvt prophylaxis might need Gtube. might need trach to prevent aspiration/ Subjective Interval Events: pt was dyspnic earlier Allergies: Coded Allergies: NO KNOWN ALLERGIES (Unverified Allergy, Unknown, 09/03/15) Objective Last 24 Hour Vital Signs Date Time Temp Pulse Resp B/P (MAP) Pulse Ox O2 Delivery O2 Flow Rate FiO2 10/16/17 16:00 99.0 107 20 173/100 97 Simple Mask 5.0 10/16/17 12:00 97.5 92 20 147/94 96 Simple Mask 5.0 10/16/17 12:00 102 10/16/17 10:21 84 19 98 Facial 60 10/16/17 09:11 99 19 94 Facial 30 10/16/17 08:54 Bi-pap 30 10/16/17 08:54 93 Bi-pap 10/16/17 08:53 116 30 Bi-pap 30 10/16/17 08:34 117 149/107 10/16/17 08:13 99.3 117 20 149/107 92 Nasal Cannula 2.0 10/16/17 04:21 94 Nasal Cannula 3.0 10/16/17 04:21 97.9 69 20 145/73 94 20 10/16/17 00:05 99.7 106 20 140/80 92 106 10/16/17 00:00 92 Nasal Cannula 3.0 10/15/17 22:13 20 148/87 10/15/17 21:00 100.0 112 20 148/87 94 Nasal Cannula 3.0 20 10/15/17 20:29 97 Nasal Cannula 5.0 10/15/17 20:29 Nasal Cannula 5.0 10/15/17 20:28 87 20 Nasal Cannula 3.0 32 10/15/17 20:21 100.2 114 20 153/106 92 20 Intake and Output 10/15/17 10/16/17 19:00 07:00 Intake Total 820 ml 1285 ml Output Total 900 ml Balance -80 ml 1285 ml Free Water 100 ml IV Total 100 ml 500 ml Tube Feeding 600 ml 685 ml Other 120 ml Output Urine Total 900 ml General Appearance: WD/WN HEENT: normocephalic, atraumatic Respiratory/Chest: chest wall non-tender, lungs clear, chest wall tender Cardiovascular: normal rate Abdomen: normal bowel sounds, soft, non tender Genitourinary: normal external genitalia Extremities: no cyanosis Skin: no ulcers Neurologic/Psychiatric: no motor/sensory deficits Laboratory Tests 10/16/17 05:45: White Blood Count 10.4, Red Blood Count 4.53L, Hemoglobin 13.2L, Hematocrit 38.4L, Mean Corpuscular Volume 85, Mean Corpuscular Hemoglobin 29.0, Mean Corpuscular Hemoglobin Concent 34.2, Red Cell Distribution Width 12.4, Platelet Count 233, Mean Platelet Volume 6.7, Neutrophils (%) (Auto) , Lymphocytes (%) ( Auto) , Monocytes (%) (Auto) , Eosinophils (%) (Auto) , Basophils (%) (Auto) , Differential Total Cells Counted 100, Neutrophils % (Manual) 63, Lymphocytes % ( Manual) 19L, Monocytes % (Manual) 18H, Eosinophils % (Manual) 0, Basophils % ( Manual) 0, Band Neutrophils 0, Platelet Estimate Adequate, Platelet Morphology Normal, Red Blood Cell Morphology Normal, Erythrocyte Sedimentation Rate 73H, Sodium Level 136, Potassium Level 3.7, Chloride Level 104, Carbon Dioxide Level 24, Anion Gap 8, Blood Urea Nitrogen 17, Creatinine 0.8, Estimat Glomerular Filtration Rate > 60, Glucose Level 130H, Calcium Level 8.4L, Phosphorus Level 1.9L, Magnesium Level 1.7L, Total Bilirubin 0.3, Aspartate Amino Transf (AST/ SGOT) 26, Alanine Aminotransferase (ALT/SGPT) 39, Alkaline Phosphatase 106, Total Protein 6.3L, Albumin 1.8L, Globulin 4.5, Albumin/Globulin Ratio 0.4L Current Medications Medications (Trade) Dose Ordered Sig/Olvin Route PRN Reason Start Time Stop Time Status Last Admin Dose Admin Acetaminophen (Tylenol) 650 mg Q4H PRN ORAL Mild Pain/Temp > 100.5 10/16/17 12:15 11/13/17 08:14 Al Hydroxide/Mg Hydroxide (Mylanta II) 30 ml Q6H PRN GT dyspepsia 10/16/17 12:30 11/10/17 12:29 Albuterol/ Ipratropium (Albuterol/ Ipratropium) 3 ml Q4H PRN HHN Shortness of Breath 10/16/17 13:00 10/18/17 16:59 Aspirin (ASA) 81 mg DAILY GT 10/17/17 09:00 11/12/17 08:59 Atorvastatin Calcium (Lipitor) 10 mg BEDTIME GT 10/16/17 21:00 11/11/17 20:59 Ceftriaxone Sodium 2 gm/ Sodium Chloride 55 ml @ 110 mls/hr Q24H IVPB 10/16/17 14:00 10/22/17 13:59 10/16/17 15:26 Dextrose/Sodium Chloride 1,000 ml @ 50 mls/hr Q20H IV 10/16/17 12:30 11/13/17 12:29 10/16/17 15:27 Heparin Sodium (Porcine) (Heparin 5000 units/ml) 5,000 units EVERY 12 HOURS SUBQ 10/16/17 21:00 11/10/17 21:59 Metoprolol Tartrate (Lopressor) 25 mg Q12HR GT 10/16/17 21:00 11/13/17 20:59 Nitroglycerin (Ntg) 0.4 mg Q5MIN X 3 DOSES PRN SL Prn Chest Pain 10/16/17 11:30 11/14/17 16:59 Ondansetron HCl (Zofran) 4 mg Q6H PRN IVP Nausea & Vomiting 10/16/17 12:30 11/10/17 12:29 Oseltamivir Phosphate (Tamiflu) 75 mg TWICE A DAY ORAL 10/16/17 18:00 10/17/17 23:59 10/16/17 17:53 Pantoprazole (Protonix) 40 mg DAILY IVP 10/17/17 09:00 11/14/17 17:59 Polyethylene Glycol (Miralax) 17 gm DAILYPRN PRN GT Constipation 10/16/17 12:30 11/10/17 12:29 Promethazine HCl/ Codeine (Phenergan with Codeine) 5 ml Q4H PRN GT For Cough 10/16/17 12:15 11/10/17 20:14 Temazepam (Restoril) 15 mg HSPRN PRN GT Insomnia 10/16/17 21:00 10/18/17 20:59 Valproic Acid (Depakene) 250 mg Q12HR@0630,1830 10/16/17 18:30 11/14/17 18:29 10/16/17 17:53 EDDIE COLES Oct 16, 2017 20:14
[2017-10-17] VITALS (7 sets, daily range): BP systolic 130–156; BP diastolic 71–93
[2017-10-17 05:19] LABS: HEMATOCRIT 41.8 % (42.0-52.0); HEMOGLOBIN 13.9 G/DL (14.2-18.0); MEAN CORPUSCULAR VOLUME 86 FL (80-99); PLATELET COUNT 321 K/UL (150-450); RED BLOOD COUNT 4.88 M/UL (4.70-6.10); RED CELL DISTRIBUTION WIDTH 12.8 % (11.6-14.8); WHITE BLOOD COUNT 10.6 K/UL (4.8-10.8)
[2017-10-17 05:35] LABS: ALANINE AMINOTRANSFERASE 57 U/L (12-78); ALBUMIN 1.9 G/DL (3.4-5.0); ALBUMIN/GLOBULIN RATIO 0.4 (1.0-2.7); ALKALINE PHOSPHATASE 105 U/L (46-116); ANION GAP 5 mmol/L (5-15); ASPARTATE AMINO TRANSFERASE 40 U/L (15-37); BILIRUBIN,TOTAL 0.3 MG/DL (0.2-1.0); BLOOD UREA NITROGEN 16 mg/dL (7-18); CALCIUM 8.9 MG/DL (8.5-10.1); CARBON DIOXIDE 29 MMOL/L (21-32); CHLORIDE 107 MMOL/L (98-107); CREATININE 0.7 MG/DL (0.55-1.30); PHOSPHORUS 2.8 MG/DL (2.5-4.9); POTASSIUM 4.1 MMOL/L (3.5-5.1); SODIUM 141 MMOL/L (136-145)
[2017-10-17] MEDS: Valproic Acid 250mg/5ml Liquid GT SCH ×2 (06:47→18:30)
[2017-10-17] MEDS: D5 1/2NS 1,000 ML IV SCH (08:35)
[2017-10-17] MEDS: Metoprolol 25mg tab GT SCH ×2 (08:36→21:00)
[2017-10-17] MEDS: Aspirin Baby 81mg GT SCH (08:36)
[2017-10-17] MEDS: Heparin 5000 units/ml inj SUBQ SCH ×2 (08:49→21:12)
[2017-10-17] MEDS: Oseltamivir 75mg cap ORAL SCH (08:50)
[2017-10-17] MEDS ORDERED: Pantoprazole Inj IVP SCH (09:00)
--- NOTE | 2017-10-17 10:01 | Pulmonology Progress Note ---
Assessment/Plan Problems: (1) Bacteremia (2) Hypoxemia (3) Obstructive hydrocephalus (4) Renal failure (5) CVA, old, hemiparesis (6) Dementia Assessment/Plan off bipap prn cxr reviewed, no mjajor changes wbc decreasing, WN: awaiting swallow study check electrolytes check cultures dvt prophylaxis might need Gtube. GI to see the patient Subjective Constitutional: Reports: no symptoms Allergies: Coded Allergies: NO KNOWN ALLERGIES (Unverified Allergy, Unknown, 09/03/15) Objective Last 24 Hour Vital Signs Date Time Temp Pulse Resp B/P (MAP) Pulse Ox O2 Delivery O2 Flow Rate FiO2 10/17/17 09:02 97 10/17/17 08:36 106 150/90 10/17/17 08:00 98.8 106 22 150/90 97 Simple Mask 5.0 10/17/17 07:18 Venturi Mask 8.0 28 10/17/17 07:18 103 20 Venturi Mask 8.0 40 10/17/17 07:18 98 Venturi Mask 8.0 28 10/17/17 04:00 98.4 98 32 156/93 94 Simple Mask 5.0 10/17/17 00:00 99.0 101 32 144/88 96 Simple Mask 5.0 10/16/17 23:54 95 10/16/17 20:52 113 114/72 10/16/17 20:11 107 10/16/17 20:00 99.1 113 32 114/72 97 Simple Mask 5.0 10/16/17 19:00 101 28 Nasal Cannula 3.0 32 10/16/17 19:00 Bi-pap 3.0 32 10/16/17 19:00 97 Nasal Cannula 3.0 32 10/16/17 16:00 99.0 107 20 173/100 97 Simple Mask 5.0 10/16/17 12:00 97.5 92 20 147/94 96 Simple Mask 5.0 10/16/17 12:00 102 10/16/17 10:21 84 19 98 Facial 60 Intake and Output 10/16/17 10/17/17 19:00 07:00 Intake Total 1210 ml 1215 ml Output Total 1100 ml 1900 ml Balance 110 ml -685 ml Free Water 200 ml 100 ml IV Total 305 ml 550 ml Tube Feeding 585 ml 455 ml Other 120 ml 110 ml Output Urine Total 1100 ml 1900 ml General Appearance: WD/WN HEENT: normocephalic, atraumatic Respiratory/Chest: chest wall non-tender, normal breath sounds Cardiovascular: normal peripheral pulses, normal rate Abdomen: normal bowel sounds, soft, non tender, no mass Extremities: no cyanosis Skin: no lesions Laboratory Tests 10/17/17 04:10: White Blood Count 10.6, Red Blood Count 4.88, Hemoglobin 13.9L, Hematocrit 41.8L , Mean Corpuscular Volume 86, Mean Corpuscular Hemoglobin 28.5, Mean Corpuscular Hemoglobin Concent 33.3, Red Cell Distribution Width 12.8, Platelet Count 321, Mean Platelet Volume 5.8L, Neutrophils (%) (Auto) , Lymphocytes (%) ( Auto) , Monocytes (%) (Auto) , Eosinophils (%) (Auto) , Basophils (%) (Auto) , Sodium Level 141, Potassium Level 4.1, Chloride Level 107, Carbon Dioxide Level 29, Anion Gap 5, Blood Urea Nitrogen 16, Creatinine 0.7, Estimat Glomerular Filtration Rate > 60, Glucose Level 99, Calcium Level 8.9, Phosphorus Level 2.8 , Magnesium Level 2.0, Total Bilirubin 0.3, Aspartate Amino Transf (AST/SGOT) 40H, Alanine Aminotransferase (ALT/SGPT) 57, Alkaline Phosphatase 105, Total Protein 6.7, Albumin 1.9L, Globulin 4.8, Albumin/Globulin Ratio 0.4L Current Medications Medications (Trade) Dose Ordered Sig/Olvin Route PRN Reason Start Time Stop Time Status Last Admin Dose Admin Acetaminophen (Tylenol) 650 mg Q4H PRN ORAL Mild Pain/Temp > 100.5 10/16/17 12:15 11/13/17 08:14 Al Hydroxide/Mg Hydroxide (Mylanta II) 30 ml Q6H PRN GT dyspepsia 10/16/17 12:30 11/10/17 12:29 Albuterol/ Ipratropium (Albuterol/ Ipratropium) 3 ml Q4H PRN HHN Shortness of Breath 10/16/17 13:00 10/18/17 16:59 Aspirin (ASA) 81 mg DAILY GT 10/17/17 09:00 11/12/17 08:59 10/17/17 08:36 Atorvastatin Calcium (Lipitor) 10 mg BEDTIME GT 10/16/17 21:00 11/11/17 20:59 10/16/17 20:51 Ceftriaxone Sodium 2 gm/ Sodium Chloride 55 ml @ 110 mls/hr Q24H IVPB 10/16/17 14:00 10/22/17 13:59 10/16/17 15:26 Dextrose/Sodium Chloride 1,000 ml @ 50 mls/hr Q20H IV 10/16/17 12:30 11/13/17 12:29 10/17/17 08:35 Heparin Sodium (Porcine) (Heparin 5000 units/ml) 5,000 units EVERY 12 HOURS SUBQ 10/16/17 21:00 11/10/17 21:59 10/17/17 08:49 Metoprolol Tartrate (Lopressor) 25 mg Q12HR GT 10/16/17 21:00 11/13/17 20:59 10/17/17 08:36 Nitroglycerin (Ntg) 0.4 mg Q5MIN X 3 DOSES PRN SL Prn Chest Pain 10/16/17 11:30 11/14/17 16:59 Ondansetron HCl (Zofran) 4 mg Q6H PRN IVP Nausea & Vomiting 10/16/17 12:30 11/10/17 12:29 Oseltamivir Phosphate (Tamiflu) 75 mg TWICE A DAY ORAL 10/16/17 18:00 10/17/17 23:59 10/17/17 08:50 Pantoprazole (Protonix) 40 mg DAILY IVP 10/17/17 09:00 11/14/17 17:59 10/17/17 08:36 Polyethylene Glycol (Miralax) 17 gm DAILYPRN PRN GT Constipation 10/16/17 12:30 11/10/17 12:29 Promethazine HCl/ Codeine (Phenergan with Codeine) 5 ml Q4H PRN GT For Cough 10/16/17 12:15 11/10/17 20:14 Temazepam (Restoril) 15 mg HSPRN PRN GT Insomnia 10/16/17 21:00 10/18/17 20:59 Valproic Acid (Depakene) 250 mg Q12HR@0630,1830 GT 10/16/17 18:30 11/14/17 18:29 10/17/17 06:47 EDDIE COLESb 7, 2018 10:01
--- NOTE | 2017-10-17 12:21 | Diagnostic Imaging Report ---
Indication: Post nasogastric tube placement Technique: Supine view of the upper abdomen Comparison: 10/12/2017 Findings: Nasogastric tube is demonstrated, coiled in the gastric fundus, proximal port beyond the gastroesophageal junction. Bowel gas pattern is unremarkable. Pulmonary parenchymal opacities are similar to previous Impression: Satisfactory nasogastric intubation
--- NOTE | 2017-10-17 12:54 | Diagnostic Imaging Report ---
Indication: Dyspnea Technique: One view of the chest Comparison: 10/16/2017 Findings: Stable satisfactory position of nasogastric tube. There is some retrocardiac atelectasis. The lungs and pleural spaces are otherwise clear. The heart size is upper limits of normal Impression: Retrocardiac atelectasis. No acute process otherwise
--- NOTE | 2017-10-17 14:04 | GI Initial Consult Note ---
ShayyLaura Phil N.PHitesh 10/17/17 1404: History of Present Illness General Date patient seen: Oct 17, 2017 Time patient seen: 13:56 Reason for Hospitalization: Altered Level of Consciousness Referring physician: ROMERO Reason for Consultation: PEG EVALUATION Present Illness HPI [facility]. He was noted by the staff to be weaker than usual and be more altered unusual. He also is found to have a low oxygen saturation at the facility at 86%. This did improve with 2 L of nasal cannula. Patient has a history of CVA with hemiplegia and seizure disorder. He was also tachypneic. The patient states he does feel slightly short of breath. He denies pain. He has no other complaints. GI consulted for PEG evaluation. ROS limited, seen on floor unable to provide any history. ST evaluation noted, unable to be performed at this time and recommendations for non oral feedings. Patient presents with hypoalbuminemia, mild anemia and electrolyte imbalance. Unknown history of endoscopy / colonoscopies. Patient currently on simple mask. Home Meds Active Scripts Atorvastatin Calcium* (LIPITOR*) 10 Mg Tablet, 10 MG ORAL BEDTIME, #30 TAB Prov:Griggs (Alfonzo)Pippa AEROSPACE PHYSIOLOGICAL TECHNICIAN 09/07/15 Reported Medications Acetaminophen* (TYLENOL EXTRA STRENGTH*) 500 Mg Tablet, 1000 MG ORAL Q6H Y for PAIN (Mod 5-7), TAB 0 Refills 10/11/17 Multivitamin with Minerals (Multivitamins with Minerals) 1 Each Tablet, 1 TAB ORAL DAILY, TAB 10/11/17 Polyethylene Glycol 3350* (MIRALAX*) 17 Gm Powd.pack, 17 GM ORAL DAILY Y for Constipation, PACKET 10/11/17 Magnesium Hydroxide* (MILK OF MAGNESIA*) 400 Mg/5 Ml Oral.susp, 30 ML ORAL DAILY Y for Constipation, ML 10/11/17 Metoprolol Tartrate* (METOPROLOL TARTRATE*) 25 Mg Tablet, 25 MG ORAL DAILY, TAB 10/11/17 Na Phos,M-B/Na Phos,Di-Ba* (FLEET ENEMA*) 133 Ml Enema, 133 ML RECTAL DAILY Y for Constipation, ML 10/11/17 Bisacodyl (DULCOLAX) 10 Mg Supp.rect, 10 MG RC Y for Constipation, SUPP 10/11/17 Docusate Sodium* (DOCUSATE SODIUM*) 100 Mg Capsule, 200 MG ORAL DAILY for STOOL MGMT, CAP 10/11/17 Valproate Sodium (DEPAKENE) 250 Mg/5 Ml Solution, 750 MG PO DAILY for SEIZURE 10/11/17 Acetaminophen (Tylenol) 325 Mg Tab, 325 MG ORAL Q6H Y for For Pain, #30 TAB 0 Refills 09/03/15 Aspirin* (ASPIR 81*) 81 Mg Tablet.dr, 81 MG ORAL DAILY, TAB 09/03/15 Med list reviewed/reconciled: Yes Allergies: Coded Allergies: NO KNOWN ALLERGIES (Unverified Allergy, Unknown, 09/03/15) Patient History Limited by: medical condition PMH Narrative Past Medical History: see triage record, HTN, [place], CVA/TIA, dementia, seizures Social History: Denies: smoking, alcohol use, drug use Reviewed Nursing Documentation: PMH: Agreed, PSxH: Agreed Nursing Documentation-PMH Past Medical History: No History, Except For Hx Hypertension: Yes - cataract Hx Gastrointestinal Problems: Yes - dysphagia Hx Neurological Problems: Yes - muscle weakness, hx of fall, obstructive hydrocephalus Hx Cerebrovascular Accident: Yes Hx Seizures: Yes Review of Systems All Other Systems: limited Physical Exam Vital Signs Date Time Temp Pulse Resp B/P (MAP) Pulse Ox O2 Delivery O2 Flow Rate FiO2 10/13/17 08:00 106 10/13/17 08:00 98.2 22 137/91 97 Nasal Cannula 3.0 10/15/17 07:56 32 Sp02 EP Interpretation: reviewed Labs Laboratory Tests Test 10/17/17 04:10 10/17/17 09:58 White Blood Count 10.6 K/UL (4.8-10.8) Red Blood Count 4.88 M/UL (4.70-6.10) Hemoglobin 13.9 G/DL (14.2-18.0) L Hematocrit 41.8 % (42.0-52.0) L Mean Corpuscular Volume 86 FL (80-99) Mean Corpuscular Hemoglobin 28.5 PG (27.0-31.0) Mean Corpuscular Hemoglobin Concent 33.3 G/DL (32.0-36.0) Red Cell Distribution Width 12.8 % (11.6-14.8) Platelet Count 321 K/UL (150-450) Mean Platelet Volume 5.8 FL (6.5-10.1) L Neutrophils (%) (Auto) % (45.0-75.0) Lymphocytes (%) (Auto) % (20.0-45.0) Monocytes (%) (Auto) % (1.0-10.0) Eosinophils (%) (Auto) % (0.0-3.0) Basophils (%) (Auto) % (0.0-2.0) Sodium Level 141 MMOL/L (136-145) Potassium Level 4.1 MMOL/L (3.5-5.1) Chloride Level 107 MMOL/L (98-107) Carbon Dioxide Level 29 MMOL/L (21-32) Anion Gap 5 mmol/L (5-15) Blood Urea Nitrogen 16 mg/dL (7-18) Creatinine 0.7 MG/DL (0.55-1.30) Estimat Glomerular Filtration Rate > 60 mL/min (>60) Glucose Level 99 MG/DL (74-106) Calcium Level 8.9 MG/DL (8.5-10.1) Phosphorus Level 2.8 MG/DL (2.5-4.9) Magnesium Level 2.0 MG/DL (1.8-2.4) Total Bilirubin 0.3 MG/DL (0.2-1.0) Aspartate Amino Transf (AST/SGOT) 40 U/L (15-37) H Alanine Aminotransferase (ALT/SGPT) 57 U/L (12-78) Alkaline Phosphatase 105 U/L (46-116) Total Protein 6.7 G/DL (6.4-8.2) Albumin 1.9 G/DL (3.4-5.0) L Globulin 4.8 g/dL Albumin/Globulin Ratio 0.4 (1.0-2.7) L Arterial Blood pH 7.447 (7.350-7.450) Arterial Blood Partial Pressure CO2 38.9 mmHg (35.0-45.0) Arterial Blood Partial Pressure O2 110.3 mmHg (75.0-100.0) H Arterial Blood HCO3 26.2 mmol/L (22.0-26.0) H Arterial Blood Oxygen Saturation 98.2 % (92.0-98.0) H Arterial Blood Base Excess 2.2 Dipak Test Positive General Appearance: well appearing, no apparent distress EENT: normal ENT inspection Neck: supple Respiratory: other - simple mask Cardiovascular: normal rate Gastrointestinal: soft Neurologic: alert Skin: normal inspection, normal color, no rash, warm/dry Lymphatic: normal inspection, no adenopathy Other Organ Systems on restraints Current Medications Current Medications Medications (Trade) Dose Ordered Sig/Olvin Route PRN Reason Start Time Stop Time Status Last Admin Dose Admin Acetaminophen (Tylenol) 650 mg Q4H PRN ORAL Mild Pain/Temp > 100.5 10/16/17 12:15 11/13/17 08:14 Al Hydroxide/Mg Hydroxide (Mylanta II) 30 ml Q6H PRN GT dyspepsia 10/16/17 12:30 11/10/17 12:29 Albuterol/ Ipratropium (Albuterol/ Ipratropium) 3 ml Q4H PRN HHN Shortness of Breath 10/16/17 13:00 10/18/17 16:59 Aspirin (ASA) 81 mg DAILY GT 10/17/17 09:00 11/12/17 08:59 10/17/17 08:36 Atorvastatin Calcium (Lipitor) 10 mg BEDTIME GT 10/16/17 21:00 11/11/17 20:59 10/16/17 20:51 Ceftriaxone Sodium 2 gm/ Sodium Chloride 55 ml @ 110 mls/hr Q24H IVPB 10/16/17 14:00 10/22/17 13:59 10/16/17 15:26 Dextrose/Sodium Chloride 1,000 ml @ 50 mls/hr Q20H IV 10/16/17 12:30 11/13/17 12:29 10/17/17 08:35 Heparin Sodium (Porcine) (Heparin 5000 units/ml) 5,000 units EVERY 12 HOURS SUBQ 10/16/17 21:00 11/10/17 21:59 10/17/17 08:49 Metoprolol Tartrate (Lopressor) 25 mg Q12HR GT 10/16/17 21:00 11/13/17 20:59 10/17/17 08:36 Nitroglycerin (Ntg) 0.4 mg Q5MIN X 3 DOSES PRN SL Prn Chest Pain 10/16/17 11:30 11/14/17 16:59 Ondansetron HCl (Zofran) 4 mg Q6H PRN IVP Nausea & Vomiting 2/6/18 12:30 11/10/17 12:29 Oseltamivir Phosphate (Tamiflu) 75 mg TWICE A DAY ORAL 10/16/17 18:00 10/17/17 23:59 10/17/17 08:50 Pantoprazole (Protonix) 40 mg DAILY IVP 10/17/17 09:00 11/14/17 17:59 10/17/17 08:36 Polyethylene Glycol (Miralax) 17 gm DAILYPRN PRN GT Constipation 10/16/17 12:30 11/10/17 12:29 Promethazine HCl/ Codeine (Phenergan with Codeine) 5 ml Q4H PRN GT For Cough 10/16/17 12:15 11/10/17 20:14 Temazepam (Restoril) 15 mg HSPRN PRN GT Insomnia 10/16/17 21:00 10/18/17 20:59 Valproic Acid (Depakene) 250 mg Q12HR@0630,1830 GT 10/16/17 18:30 11/14/17 18:29 10/17/17 06:47 GI: Plan Problems: (1) PEG (percutaneous endoscopic gastrostomy) adjustment/replacement/removal (2) Dementia (3) Dysphagia Plan PEG scheduled for tomorrow, family agreed to PEG - maintain NPO + IVFs - hold heparin tonight. - pt on ceftriaxone NGT removed by patient prn transfusions ppi fu labs head CT r/o stroke Discussed with Dr. Campos. Thank you for this patient referral, we will follow. ANGELA CAMPOS 10/22/17 1511: History of Present Illness General Reason for Hospitalization: Altered Level of Consciousness Present Illness Home Meds Active Scripts Atorvastatin Calcium* (LIPITOR*) 10 Mg Tablet, 10 MG ORAL BEDTIME, #30 TAB Prov:Griggs (Alfonzo)Pippa AEROSPACE PHYSIOLOGICAL TECHNICIAN 09/07/15 Reported Medications Acetaminophen* (TYLENOL EXTRA STRENGTH*) 500 Mg Tablet, 1000 MG ORAL Q6H Y for PAIN (Mod 5-7), TAB 0 Refills 10/11/17 Multivitamin with Minerals (Multivitamins with Minerals) 1 Each Tablet, 1 TAB ORAL DAILY, TAB 10/11/17 Polyethylene Glycol 3350* (MIRALAX*) 17 Gm Powd.pack, 17 GM ORAL DAILY Y for Constipation, PACKET 10/11/17 Magnesium Hydroxide* (MILK OF MAGNESIA*) 400 Mg/5 Ml Oral.susp, 30 ML ORAL DAILY Y for Constipation, ML 10/11/17 Metoprolol Tartrate* (METOPROLOL TARTRATE*) 25 Mg Tablet, 25 MG ORAL DAILY, TAB 10/11/17 Na Phos,M-B/Na Phos,Di-Ba* (FLEET ENEMA*) 133 Ml Enema, 133 ML RECTAL DAILY Y for Constipation, ML 10/11/17 Bisacodyl (DULCOLAX) 10 Mg Supp.rect, 10 MG RC Y for Constipation, SUPP 10/11/17 Docusate Sodium* (DOCUSATE SODIUM*) 100 Mg Capsule, 200 MG ORAL DAILY for STOOL MGMT, CAP 10/11/17 Valproate Sodium (DEPAKENE) 250 Mg/5 Ml Solution, 750 MG PO DAILY for SEIZURE 10/11/17 Acetaminophen (Tylenol) 325 Mg Tab, 325 MG ORAL Q6H Y for For Pain, #30 TAB 0 Refills 09/03/15 Aspirin* (ASPIR 81*) 81 Mg Tablet.dr, 81 MG ORAL DAILY, TAB 09/03/15 Allergies: Coded Allergies: NO KNOWN ALLERGIES (Unverified Allergy, Unknown, 09/03/15) GI: Plan Plan The patient was seen and examined at bedside and all new and available data was reviewed in the patients chart. I agree with the above findings, impression and plan. (Patient seen earlier today. Signature stamp does not reflect patient encounter time.). - MD [facility] Phil NRogelio Oct 17, 2017 14:04 ANGELA CAMPOS Oct 22, 2017 15:11
[2017-10-17] MEDS: cefTRIAXone 2 GM in NS 55 ML IVPB SCH (14:43)
--- NOTE | 2017-10-17 14:53 | Infectious Diseases Prog Note ---
Assessment/Plan Assessment/Plan Assessment: Severe Sepsis- 2ry to E.coli UTI w/ bacteremia and bronchitis; suspicion for Flu despite rapid test (+URI symptoms, sick contacts) -Bcx 2/ 3/4 E.coli (tolliver S); 2/ NTD -u/a wbc 15-20, nit +, leuk +3; Ucx <10k E.coli (tolliver S) -REnal US: Limited exam. No definite hydronephrosis. Empty bladder, containing a Cervantes catheter. Acute hypoxic resp failure- previously improved, now worsened (10/16)- r/o PNA -CXR 10/17: Retrocardiac atelectasis. No acute process otherwis; sp cx p -CXR 10/15: : No acute findings -Influenza neg Fever/leukocytosis- leukocytosis resolved, fevers improving; 2ry to above JULIA, reslved Lactic acidosis, resolved CVA with hemiplegia, HTN, cataract, dysphagia, hx of fall, CAD/VA, CVA/TIA, dementia, seizure disorder Plan: - Continue Ceftriaxone 2 g qd abx d#03/23; upon discharge can be transitioned to PO Cipro 750mg bid -10/15 SP IV Vancomcyin #5, Meropenm #3 -3 SP Cefepime #3 -d/c empiric Tamiflu #/ -f/u sputum cx -low threshold for contrast CT abd/p if recurrent bacteremia, persistent/ worsening fever/leukocytosis -f/u cx -Monitor CBC/BMP, temperatures; Trend WBC -aspiration precautions Thank you for this consultation. Will continue to follow along with you. Discussed with RN. Subjective Allergies: Coded Allergies: NO KNOWN ALLERGIES (Unverified Allergy, Unknown, 09/03/15) Subjective afebrile>36hrs no leukocytosis on Simple mask sp cx p Objective Vital Signs Last 24 Hour Vital Signs Date Time Temp Pulse Resp B/P (MAP) Pulse Ox O2 Delivery O2 Flow Rate FiO2 10/17/17 12:00 93 10/17/17 12:00 98.8 88 22 130/84 98 Simple Mask 5.0 10/17/17 09:02 97 10/17/17 08:36 106 150/90 10/17/17 08:00 98.8 106 22 150/90 97 Simple Mask 5.0 10/17/17 07:18 Venturi Mask 8.0 28 10/17/17 07:18 103 20 Venturi Mask 8.0 40 10/17/17 07:18 98 Venturi Mask 8.0 28 10/17/17 04:00 98.4 98 32 156/93 94 Simple Mask 5.0 10/17/17 00:00 99.0 101 32 144/88 96 Simple Mask 5.0 10/16/17 23:54 95 10/16/17 20:52 113 114/72 10/16/17 20:11 107 10/16/17 20:00 99.1 113 32 114/72 97 Simple Mask 5.0 10/16/17 19:00 101 28 Nasal Cannula 3.0 32 10/16/17 19:00 Bi-pap 3.0 32 10/16/17 19:00 97 Nasal Cannula 3.0 32 10/16/17 16:00 99.0 107 20 173/100 97 Simple Mask 5.0 Height (Feet): 5 Height (Inches): 7.00 Weight (Pounds): 175 Objective General Appearance: alert, moderate distress, Chronically Ill Head: normocephalic, atraumatic ENT: hearing grossly normal, normal pharynx, no angioedema, normal voice, injected conjuctiva Neck: full range of motion, supple/symm/no masses Respiratory: chest non-tender, lungs clear, normal breath sounds, no retraction , no accessory muscle use, speaking full sentences, other - tachypnea Cardiovascular no edema, tachycardia Gastrointestinal: normal bowel sounds, non tender, soft, non-distended, no guarding, no rebound Musculoskeletal: back normal, normal range of motion Skin: normal color, no rash, warm/dry, well hydrated Microbiology Date/Time Source Procedure Growth Status 10/16/17 23:05 Sputum Gram Stain - Final Resulted 10/16/17 23:05 Sputum Sputum Culture Pending Resulted Laboratory Tests Test 10/17/17 04:10 10/17/17 09:58 White Blood Count 10.6 K/UL (4.8-10.8) Red Blood Count 4.88 M/UL (4.70-6.10) Hemoglobin 13.9 G/DL (14.2-18.0) L Hematocrit 41.8 % (42.0-52.0) L Mean Corpuscular Volume 86 FL (80-99) Mean Corpuscular Hemoglobin 28.5 PG (27.0-31.0) Mean Corpuscular Hemoglobin Concent 33.3 G/DL (32.0-36.0) Red Cell Distribution Width 12.8 % (11.6-14.8) Platelet Count 321 K/UL (150-450) Mean Platelet Volume 5.8 FL (6.5-10.1) L Neutrophils (%) (Auto) % (45.0-75.0) Lymphocytes (%) (Auto) % (20.0-45.0) Monocytes (%) (Auto) % (1.0-10.0) Eosinophils (%) (Auto) % (0.0-3.0) Basophils (%) (Auto) % (0.0-2.0) Sodium Level 141 MMOL/L (136-145) Potassium Level 4.1 MMOL/L (3.5-5.1) Chloride Level 107 MMOL/L (98-107) Carbon Dioxide Level 29 MMOL/L (21-32) Anion Gap 5 mmol/L (5-15) Blood Urea Nitrogen 16 mg/dL (7-18) Creatinine 0.7 MG/DL (0.55-1.30) Estimat Glomerular Filtration Rate > 60 mL/min (>60) Glucose Level 99 MG/DL (74-106) Calcium Level 8.9 MG/DL (8.5-10.1) Phosphorus Level 2.8 MG/DL (2.5-4.9) Magnesium Level 2.0 MG/DL (1.8-2.4) Total Bilirubin 0.3 MG/DL (0.2-1.0) Aspartate Amino Transf (AST/SGOT) 40 U/L (15-37) H Alanine Aminotransferase (ALT/SGPT) 57 U/L (12-78) Alkaline Phosphatase 105 U/L (46-116) Total Protein 6.7 G/DL (6.4-8.2) Albumin 1.9 G/DL (3.4-5.0) L Globulin 4.8 g/dL Albumin/Globulin Ratio 0.4 (1.0-2.7) L Arterial Blood pH 7.447 (7.350-7.450) Arterial Blood Partial Pressure CO2 38.9 mmHg (35.0-45.0) Arterial Blood Partial Pressure O2 110.3 mmHg (75.0-100.0) H Arterial Blood HCO3 26.2 mmol/L (22.0-26.0) H Arterial Blood Oxygen Saturation 98.2 % (92.0-98.0) H Arterial Blood Base Excess 2.2 Dipak Test Positive Current Medications Medications (Trade) Dose Ordered Sig/Olvin Route PRN Reason Start Time Stop Time Status Last Admin Dose Admin Acetaminophen (Tylenol) 650 mg Q4H PRN ORAL Mild Pain/Temp > 100.5 10/16/17 12:15 11/13/17 08:14 Al Hydroxide/Mg Hydroxide (Mylanta II) 30 ml Q6H PRN GT dyspepsia 10/16/17 12:30 11/10/17 12:29 Albuterol/ Ipratropium (Albuterol/ Ipratropium) 3 ml Q4H PRN HHN Shortness of Breath 10/16/17 13:00 10/18/17 16:59 Aspirin (ASA) 81 mg DAILY GT 10/17/17 09:00 11/12/17 08:59 10/17/17 08:36 Atorvastatin Calcium (Lipitor) 10 mg BEDTIME GT 10/16/17 21:00 11/11/17 20:59 10/16/17 20:51 Ceftriaxone Sodium 2 gm/ Sodium Chloride 55 ml @ 110 mls/hr Q24H IVPB 10/16/17 14:00 10/22/17 13:59 10/17/17 14:43 Dextrose/Sodium Chloride 1,000 ml @ 50 mls/hr Q20H IV 10/16/17 12:30 11/13/17 12:29 10/17/17 08:35 Heparin Sodium (Porcine) (Heparin 5000 units/ml) 5,000 units EVERY 12 HOURS SUBQ 10/16/17 21:00 11/10/17 21:59 10/17/17 08:49 Metoprolol Tartrate (Lopressor) 25 mg Q12HR GT 10/16/17 21:00 11/13/17 20:59 10/17/17 08:36 Nitroglycerin (Ntg) 0.4 mg Q5MIN X 3 DOSES PRN SL Prn Chest Pain 10/16/17 11:30 11/14/17 16:59 Ondansetron HCl (Zofran) 4 mg Q6H PRN IVP Nausea & Vomiting 10/16/17 12:30 11/10/17 12:29 Oseltamivir Phosphate (Tamiflu) 75 mg TWICE A DAY ORAL 10/16/17 18:00 10/17/17 23:59 10/17/17 08:50 Pantoprazole (Protonix) 40 mg DAILY IVP 10/17/17 09:00 11/14/17 17:59 10/17/17 08:36 Polyethylene Glycol (Miralax) 17 gm DAILYPRN PRN GT Constipation 10/16/17 12:30 11/10/17 12:29 Promethazine HCl/ Codeine (Phenergan with Codeine) 5 ml Q4H PRN GT For Cough 10/16/17 12:15 11/10/17 20:14 Temazepam (Restoril) 15 mg HSPRN PRN GT Insomnia 10/16/17 21:00 10/18/17 20:59 Valproic Acid (Depakene) 250 mg Q12HR@0630,1830 GT 10/16/17 18:30 11/14/17 18:29 10/17/17 06:47 Alessia Akers M.D. Oct 17, 2017 14:53
--- NOTE | 2017-10-17 15:55 | Diagnostic Imaging Report ---
Indication: Post nasogastric tube placement Technique: Supine view of the abdomen Comparison: 10 hours earlier Findings: Previous nasogastric tube apparently removed. New nasogastric tube is coiled in the midesophagus or makes a hairpin loop, distal shaft pointed retrograde, tip cephalad beyond the edge of the image Again demonstrated is retrocardiac consolidation. The bowel gas pattern is unremarkable Impression: Malposition of nasogastric tube. Removal and replacement recommended. SANTOS nurse notified at the time of interpretation
--- NOTE | 2017-10-17 16:47 | Diagnostic Imaging Report ---
Indication: Status post nasogastric tube repositioning Technique: One view of the upper abdomen Comparison: 2 hours earlier Findings: The nasogastric tube is more distal, but still making a hairpin loop in the distal esophagus, tip pointed cephalad retrograde in the upper esophagus. Retrocardiac consolidation and/or atelectasis persists. Impression: Advanced but still malpositioned nasogastric tube. Findings discussed by phone with the patient's nurse at the time of interpretation
[2017-10-18] VITALS (10 sets, daily range): BP systolic 128–156; BP diastolic 64–104
[2017-10-18] MEDS: D5 1/2NS 1,000 ML IV SCH (03:09)
[2017-10-18 04:52] LABS: ANION GAP 5 mmol/L (5-15); BLOOD UREA NITROGEN 22 mg/dL (7-18); CALCIUM 8.8 MG/DL (8.5-10.1); CARBON DIOXIDE 29 MMOL/L (21-32); CHLORIDE 104 MMOL/L (98-107); CREATININE 0.7 MG/DL (0.55-1.30); POTASSIUM 3.8 MMOL/L (3.5-5.1); SODIUM 138 MMOL/L (136-145)
[2017-10-18 05:02] LABS: BASOPHILS % (AUTO) 2.5 % (0.0-2.0); EOSINOPHILS % (AUTO) 4.9 % (0.0-3.0); HEMATOCRIT 37.7 % (42.0-52.0); HEMOGLOBIN 13.2 G/DL (14.2-18.0); LYMPHOCYTES % (AUTO) 19.1 % (20.0-45.0); MEAN CORPUSCULAR VOLUME 85 FL (80-99); NEUTROPHILS % (AUTO) 56.5 % (45.0-75.0); PLATELET COUNT 423 K/UL (150-450); RED BLOOD COUNT 4.45 M/UL (4.70-6.10); RED CELL DISTRIBUTION WIDTH 12.4 % (11.6-14.8); WHITE BLOOD COUNT 9.4 K/UL (4.8-10.8)
[2017-10-18] MEDS: Valproic Acid 250mg/5ml Liquid GT SCH ×2 (06:27→18:34)
[2017-10-18] MEDS ORDERED: NS 500ML IV ONE (06:30)
--- NOTE | 2017-10-18 06:32 | Pre-Procedure Note/Attestation ---
Pre-Procedure Note/Attestation Complete Prior to Procedure Planned Procedure: not applicable Procedure Narrative: egd/peg Indications for Procedure Pre-Operative Diagnosis: dysphagia, FTT Attestation I attest that I discussed the nature of the procedure; its benefits; risks and complications; and alternatives (and the risks and benefits of such alternatives ), prior to the procedure, with the patient (or the patient's legal manufacturer's service representative). I attest that, if there was a reasonable possibility of needing a blood transfusion, the patient (or the patient's legal manufacturer's service representative) was given the [facility] standardized written summary, pursuant to the Keven Saige Blood Safety Act ([place] Health and Safety Code # 1645, as amended). I attest that I re-evaluated the patient just prior to the surgery and that there has been no change in the patient's H&P, except as documented below: ANGELA WAGONER Oct 18, 2017 06:32
--- NOTE | 2017-10-18 06:46 | Endoscopy Procedure Note ---
Endoscopy Procedure Note Indication for Procedure: dysphagia Procedures Performed: EGD, PEG Operative Findings/Diagnosis: same Specimen: yes Pt Tolerated Procedure Well: Yes Estimated Blood Loss: none Anesthesiologist: freddy Anesthesia: MAC Implant(s) used?: No 50 yrs or older w/o bx or poly: Not Applicable 10yrs. F/U not recommended: Not Applicable ANGELA WAGONER Oct 18, 2017 06:46
--- NOTE | 2017-10-18 07:08 | Immediate Post-Op Evaluation ---
Immediate Post-Op Evalulation Immediate Post-Op Evalulation Procedure: EGD PEG tube placement Date of Evaluation: Oct 18, 2017 Time of Evaluation: 07:06 IV Fluids: 300 Blood Products: none Estimated Blood Loss: min Urinary Output: none Blood Pressure Systolic: 154 Blood Pressure Diastolic: 92 Pulse Rate: 84 Respiratory Rate: 20 O2 Sat by Pulse Oximetry: 98 Temperature (Fahrenheit): 97.6 Pain Score (1-10): 1 Nausea: No Vomiting: No Complications none Patient Status: awake, patent, none Hydration Status: adequate JEM MARIA M.D. Oct 18, 2017 07:08
--- NOTE | 2017-10-18 08:18 | Anethesia Preoperative Eval ---
Anesthesia Pre-op PMH/ROS General Date of Evaluation: Oct 18, 2017 Time of Evaluation: 06:20 Anesthesiologist: Herbie ASA Score: ASA 4 Mallampati Score Class I : Soft palate, uvula, fauces, pillars visible Class II: Soft palate, uvula, fauces visible Class III: Soft palate, base of uvula visible Class IV: Only hard plate visible Mallampati Classification: Class III Surgeon: Andres Diagnosis: Dysphagia Surgical Procedure: EGD PEG tube placement Anesthesia History: none Family History: no anesthesia problems Allergies: Coded Allergies: NO KNOWN ALLERGIES (Unverified Allergy, Unknown, 09/03/15) Medications: see eMAR Past Medical History Cardiovascular: Reports: HTN, CAD, Denies: HI, valve dz, arrhythmia, other Pulmonary: Reports: NASIR, Denies: asthma, COPD, other Gastrointestinal/Genitourinary: Reports: GERD, other - dysphagia, Denies: CRI, ESRD Neurologic/Psychiatric: Reports: dementia, CVA, Denies: depression/anxiety, TIA, other Endocrine: Reports: hypothyroidism, Denies: DM, steroids, other HEENT: Denies: cataract (L), cataract (R), glaucoma, [place] (L), [place] (R), other Hematology/Immune: Denies: anemia, DVT, bleeding disorder, other Musculoskeletal/Integumentary: Reports: DJD, other - muscle contraction, Denies: OA, RA, DDD, edema PMH Narrative: as above PSxH Narrative: 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 Exam Physician Exam Last Vital Signs Date Time Temp Pulse Resp B/P (MAP) Pulse Ox O2 Delivery O2 Flow Rate FiO2 10/18/17 07:20 98.0 85 21 147/101 96 Nasal Cannula 4.0 10/18/17 04:00 55 Constitutional: NAD Neurologic: other - unable to obtaine Cardiovascular: RRR Respiratory: other - diminished breath sounds Gastrointestinal: S/NT/ND Airway Exam Mallampati Score: Class III MO: limited Neck: stiff ROM: limited Teeth: missing, broken Dentures: no upper, no lower Anesthesia Pre-op A/P Labs Hematology Test 10/18/17 04:05 White Blood Count 9.4 K/UL (4.8-10.8) Red Blood Count 4.45 M/UL (4.70-6.10) L Hemoglobin 13.2 G/DL (14.2-18.0) L Hematocrit 37.7 % (42.0-52.0) L Mean Corpuscular Volume 85 FL (80-99) Mean Corpuscular Hemoglobin 29.6 PG (27.0-31.0) Mean Corpuscular Hemoglobin Concent 34.9 G/DL (32.0-36.0) Red Cell Distribution Width 12.4 % (11.6-14.8) Platelet Count 423 K/UL (150-450) Mean Platelet Volume 5.8 FL (6.5-10.1) L Neutrophils (%) (Auto) 56.5 % (45.0-75.0) Lymphocytes (%) (Auto) 19.1 % (20.0-45.0) L Monocytes (%) (Auto) 17.0 % (1.0-10.0) H Eosinophils (%) (Auto) 4.9 % (0.0-3.0) H Basophils (%) (Auto) 2.5 % (0.0-2.0) H Coagulation Test 10/18/17 04:05 Prothrombin Time 10.2 SEC (9.30-11.50) Prothromb Time International Ratio 1.0 (0.9-1.1) Activated Partial Thromboplast Time 26 SEC (23-33) Chemistry Test 10/18/17 04:05 Sodium Level 138 MMOL/L (136-145) Potassium Level 3.8 MMOL/L (3.5-5.1) Chloride Level 104 MMOL/L (98-107) Carbon Dioxide Level 29 MMOL/L (21-32) Anion Gap 5 mmol/L (5-15) Blood Urea Nitrogen 22 mg/dL (7-18) H Creatinine 0.7 MG/DL (0.55-1.30) Estimat Glomerular Filtration Rate > 60 mL/min (>60) Glucose Level 102 MG/DL (74-106) Calcium Level 8.8 MG/DL (8.5-10.1) Risk Assessment & Plan Assessment: ASA 4 Plan: MAC Status Change Before Surgery: No Pre-Antibiotics Drug: none JEM MARIA M.D. Oct 18, 2017 08:18
--- NOTE | 2017-10-18 08:20 | 48 Hour Post Anesthesia Eval ---
Post Anesthesia Evaluation Procedure: EGD PEG tube placement Date of Evaluation: Oct 18, 2017 Time of Evaluation: 08:19 Blood Pressure Systolic: 148 0: 96 Pulse Rate: 84 Respiratory Rate: 20 Temperature (Fahrenheit): 97.6 O2 Sat by Pulse Oximetry: 92 Airway: patent Nausea: No Vomiting: No Pain Intensity: 1 Hydration Status: adequate Cardiopulmonary Status: stable Mental Status/LOC: patient returned to baseline Follow-up Care/Observations: n/a Post-Anesthesia Complications: none Follow-up care needed: N/A JEM MARIA M.D. Oct 18, 2017 08:20
[2017-10-18] MEDS: Aspirin Baby 81mg GT SCH (08:39)
[2017-10-18] MEDS: Metoprolol 25mg tab GT SCH ×2 (08:40→20:27)
[2017-10-18] MEDS: Heparin 5000 units/ml inj SUBQ SCH ×2 (08:40→20:29)
--- NOTE | 2017-10-18 13:26 | Pulmonology Progress Note ---
Assessment/Plan Problems: (1) Bacteremia (2) Hypoxemia (3) Obstructive hydrocephalus (4) Renal failure (5) CVA, old, hemiparesis (6) Dementia Assessment/Plan off bipap prn cxr reviewed, no mjajor changes wbc decreasing, WN: tolerated PEG placement check electrolytes check cultures dvt prophylaxis might need Gtube. Subjective ROS Limited/Unobtainable: No Constitutional: Reports: no symptoms HEENT: Repors: no symptoms Respiratory: Reports: no symptoms Allergies: Coded Allergies: NO KNOWN ALLERGIES (Unverified Allergy, Unknown, 09/03/15) Objective Last 24 Hour Vital Signs Date Time Temp Pulse Resp B/P (MAP) Pulse Ox O2 Delivery O2 Flow Rate FiO2 10/18/17 11:04 97 10/18/17 08:40 98 138/89 10/18/17 08:20 84 20 92 10/18/17 08:00 98.3 83 18 132/89 96 Nasal Cannula 4.0 10/18/17 08:00 98 10/18/17 07:40 90 20 Venturi Mask 14.0 55 10/18/17 07:40 Venturi Mask 14.0 55 10/18/17 07:40 98 Venturi Mask 14.0 55 10/18/17 07:20 98.0 85 21 147/101 96 Nasal Cannula 4.0 10/18/17 07:10 82 22 156/99 97 Nasal Cannula 4.0 10/18/17 07:08 84 20 98 10/18/17 07:05 85 22 148/102 97 Nasal Cannula 4.0 10/18/17 07:02 98.2 94 22 154/104 99 Nasal Cannula 4.0 10/18/17 04:12 104 10/18/17 04:00 98.4 96 24 146/96 97 Venturi Mask 14.0 55 10/18/17 00:00 100 10/18/17 00:00 98.0 90 24 128/64 98 Venturi Mask 14.0 55 10/17/17 21:14 Venturi Mask 14.0 55 10/17/17 21:13 97 Venturi Mask 14.0 55 10/17/17 21:10 92 22 Venturi Mask 14.0 55 10/17/17 20:00 98.4 96 20 144/92 96 Venturi Mask 28 10/17/17 20:00 93 10/17/17 16:02 98.4 92 22 140/81 97 Venturi Mask 28 10/17/17 16:00 108 Intake and Output 10/17/17 10/18/17 19:00 07:00 Intake Total 640 ml 550 ml Output Total 1050 ml 400 ml Balance -410 ml 150 ml Intake Oral 0 ml IV Total 640 ml 550 ml Output Urine Total 1050 ml 400 ml General Appearance: no acute distress HEENT: normocephalic, atraumatic Respiratory/Chest: chest wall non-tender, lungs clear Cardiovascular: normal rate, regularly irregular Abdomen: normal bowel sounds, no organomegaly Extremities: no cyanosis Skin: no rash, no lesions Microbiology Date/Time Source Procedure Growth Status 10/16/17 23:05 Sputum Gram Stain - Final Resulted 10/16/17 23:05 Sputum Sputum Culture Pending Resulted Laboratory Tests 10/18/17 04:05: White Blood Count 9.4, Red Blood Count 4.45L, Hemoglobin 13.2L, Hematocrit 37.7L , Mean Corpuscular Volume 85, Mean Corpuscular Hemoglobin 29.6, Mean Corpuscular Hemoglobin Concent 34.9, Red Cell Distribution Width 12.4, Platelet Count 423, Mean Platelet Volume 5.8L, Neutrophils (%) (Auto) 56.5, Lymphocytes ( %) (Auto) 19.1L, Monocytes (%) (Auto) 17.0H, Eosinophils (%) (Auto) 4.9H, Basophils (%) (Auto) 2.5H, Prothrombin Time 10.2, Prothromb Time International Ratio 1.0, Activated Partial Thromboplast Time 26, Sodium Level 138, Potassium Level 3.8, Chloride Level 104, Carbon Dioxide Level 29, Anion Gap 5, Blood Urea Nitrogen 22H, Creatinine 0.7, Estimat Glomerular Filtration Rate > 60, Glucose Level 102, Calcium Level 8.8 Current Medications Medications (Trade) Dose Ordered Sig/Olvin Route PRN Reason Start Time Stop Time Status Last Admin Dose Admin Acetaminophen (Tylenol) 650 mg Q4H PRN ORAL Mild Pain/Temp > 100.5 10/16/17 12:15 11/13/17 08:14 Al Hydroxide/Mg Hydroxide (Mylanta II) 30 ml Q6H PRN GT dyspepsia 10/16/17 12:30 11/10/17 12:29 Albuterol/ Ipratropium (Albuterol/ Ipratropium) 3 ml Q4H PRN HHN Shortness of Breath 10/16/17 13:00 10/18/17 16:59 Aspirin (ASA) 81 mg DAILY GT 10/17/17 09:00 11/12/17 08:59 10/18/17 08:39 Atorvastatin Calcium (Lipitor) 10 mg BEDTIME GT 10/16/17 21:00 11/11/17 20:59 10/16/17 20:51 Ceftriaxone Sodium 2 gm/ Sodium Chloride 55 ml @ 110 mls/hr Q24H IVPB 10/16/17 14:00 10/22/17 13:59 10/17/17 14:43 Dextrose/Sodium Chloride 1,000 ml @ 50 mls/hr Q20H IV 10/16/17 12:30 11/13/17 12:29 10/18/17 03:09 Heparin Sodium (Porcine) (Heparin 5000 units/ml) 5,000 units EVERY 12 HOURS SUBQ 10/16/17 21:00 11/10/17 21:59 10/18/17 08:40 Metoprolol Tartrate (Lopressor) 25 mg Q12HR GT 10/16/17 21:00 11/13/17 20:59 10/18/17 08:40 Nitroglycerin (Ntg) 0.4 mg Q5MIN X 3 DOSES PRN SL Prn Chest Pain 10/16/17 11:30 11/14/17 16:59 Ondansetron HCl (Zofran) 4 mg Q6H PRN IVP Nausea & Vomiting 10/16/17 12:30 11/10/17 12:29 Polyethylene Glycol (Miralax) 17 gm DAILYPRN PRN GT Constipation 10/16/17 12:30 11/10/17 12:29 Promethazine HCl/ Codeine (Phenergan with Codeine) 5 ml Q4H PRN GT For Cough 10/16/17 12:15 11/10/17 20:14 Temazepam (Restoril) 15 mg HSPRN PRN GT Insomnia 10/16/17 21:00 10/18/17 20:59 Valproic Acid (Depakene) 250 mg Q12HR@0630,1830 GT 10/16/17 18:30 11/14/17 18:29 10/17/17 06:47 EDDIE COLES Oct 18, 2017 13:26
[2017-10-18] MEDS: cefTRIAXone 2 GM in NS 55 ML IVPB SCH (15:10)
--- NOTE | 2017-10-18 17:00 | Procedure Note ---
DATE OF PROCEDURE: 10/18/2017 SURGEON: Jordy Campos M.D. PROCEDURE: Upper endoscopy with biopsy and PEG placement. ANESTHESIA: Per Dr. Zaid Stoner. INSTRUMENT: Olympus adult flexible upper endoscope. INDICATION: Dysphagia. REASON FOR PROCEDURE: The procedure, risks, benefits, and possible consequences, including hemorrhage, aspiration, perforation and infection, and alternative treatments, were explained to the patient/legal guardian by Dr. Jordy Campos and the patient/legal guardian understood and accepted these risks. DESCRIPTION OF PROCEDURE: After informed consent was obtained and the patient was adequately sedated, first Olympus upper endoscope was advanced from mouth into the second portion of duodenum and retroflexion was performed in the stomach. The patient had evidence of diffuse gastritis. Random biopsy from antrum was obtained to rule out H. pylori infection. At this time, the 20-Dominican pull type of G-tube was successfully placed in the epigastric area under endoscopic guidance and under sterile condition. The distance from the tip of the tube to skin was about 3 cm in size. The patient tolerated the procedure very well without any complication. SUMMARY OF FINDINGS: 1. Gastritis, status post biopsy. 2. Status post successful PEG placement. RECOMMENDATIONS: 1. Abdominal binder. 2. Elevate the head of the bed at all times. 3. G-tube flush and G-tube care. 4. Start tube feeding later today. 5. The patient was on antibiotic ceftriaxone, so we did not add any antibiotic at this time. I want to thank Dr. Martines, for this kind referral. Jordy Campos M.D. DR: SHELLIE JOB#: [id number] CC: Sissy Martines M.D.; Fax#: [phone]
[2017-10-18] MEDS ORDERED: D5NS 1000ml IV ONE (17:09)
--- NOTE | 2017-10-18 18:32 | Diagnostic Imaging Report ---
Indication: Altered level of consciousness Technique: Continuous helical CT scanning of the head was performed utilizing automated exposure control without intravenous contrast material. Axial and coronal reconstructions were obtained. Comparison: 09/03/2015 CT dose: Total DLP 1397.2 mGycm; CTDI vol 70.38 mGy Findings: There is no acute intracranial hemorrhage, mass effect or cortical edema. The ventricles, cisterns and sulci are prominent consistent with atrophy. Again noted is ventricular prominence out of proportion to sulcal prominence. The size and configuration of the ventricles is similar compared to the prior exam. Visualized mastoid air cells and paranasal sinuses are unremarkable. There is remote fracture deformity of the left lamina papyracea. There is no depressed calvarial fracture. IMPRESSION: No evidence of acute intracranial hemorrhage, mass effect or cortical edema. MRI may be obtained for more sensitive evaluation as clinically indicated. Atrophy and nonspecific periventricular hypoattenuation suggestive of chronic ischemic microvascular changes. Ventricular prominence again noted to be out of proportion to sulcal prominence. This may be related to more pronounced central atrophy superimposed on generalized atrophy however possibility of normal pressure hydrocephalus not entirely excluded. Correlate clinically. Size and configuration of ventricular system is stable. The CT scanner at [facility] is accredited by the [employer] and the scans are performed using protocols designed to limit radiation exposure to as low as reasonably achievable to attain images of sufficient resolution adequate for diagnostic evaluation.
[2017-10-18] MEDS ORDERED: NS 275ml ONE ×2 (19:32→19:39)
[2017-10-18] MEDS ORDERED: D5 1/2NS 1000ml IV ONE ×2 (19:32→19:39)
[2017-10-19] VITALS: BP 166/91
[2017-10-19] MEDS: D5 1/2NS 1,000 ML IV SCH ×2 (00:11→20:36)
[2017-10-19 04:00] VITALS: BP 164/97
[2017-10-19 04:51] LABS: EOSINOPHILS % (AUTO) 1.3 % (0.0-3.0); HEMATOCRIT 40.4 % (42.0-52.0); HEMOGLOBIN 13.9 G/DL (14.2-18.0); LYMPHOCYTES % (AUTO) 11.9 % (20.0-45.0); MEAN CORPUSCULAR VOLUME 84 FL (80-99); MONOCYTES % (AUTO) 6.8 % (1.0-10.0); PLATELET COUNT 574 K/UL (150-450); RED BLOOD COUNT 4.79 M/UL (4.70-6.10); WHITE BLOOD COUNT 14.3 K/UL (4.8-10.8)
[2017-10-19 05:01] LABS: ANION GAP 5 mmol/L (5-15); BLOOD UREA NITROGEN 17 mg/dL (7-18); CALCIUM 9.3 MG/DL (8.5-10.1); CARBON DIOXIDE 26 MMOL/L (21-32); CHLORIDE 102 MMOL/L (98-107); CREATININE 0.7 MG/DL (0.55-1.30); PHOSPHORUS 2.6 MG/DL (2.5-4.9); POTASSIUM 4.2 MMOL/L (3.5-5.1); SODIUM 133 MMOL/L (136-145)
[2017-10-19] MEDS: Valproic Acid 250mg/5ml Liquid GT SCH ×2 (05:32→17:33)
[2017-10-19] MEDS ORDERED: fentaNYL 100 mcg/2 mL IV ONE (06:30)
[2017-10-19] MEDS ORDERED: Midazolam 2mg/2ml Inj ONE (06:30)
[2017-10-19] MEDS ORDERED: Propofol 200mg/20ml IV ONE (06:30)
[2017-10-19 08:00] VITALS: BP 156/105
[2017-10-19] MEDS: Aspirin Baby 81mg GT SCH (08:54)
[2017-10-19] MEDS: Metoprolol 25mg tab GT SCH ×2 (08:54→20:37)
[2017-10-19] MEDS: Heparin 5000 units/ml inj SUBQ SCH ×2 (08:55→20:39)
--- NOTE | 2017-10-19 10:43 | Pulmonology Progress Note ---
Assessment/Plan Problems: (1) Bacteremia (2) Hypoxemia (3) Obstructive hydrocephalus (4) Renal failure (5) CVA, old, hemiparesis (6) Dementia Assessment/Plan med/surg wbc decreasing, WN: tolerated PEG placement check electrolytes check cultures dvt prophylaxis Subjective ROS Limited/Unobtainable: Yes Constitutional: Reports: no symptoms HEENT: Repors: no symptoms Allergies: Coded Allergies: NO KNOWN ALLERGIES (Unverified Allergy, Unknown, 09/03/15) Objective Last 24 Hour Vital Signs Date Time Temp Pulse Resp B/P (MAP) Pulse Ox O2 Delivery O2 Flow Rate FiO2 10/19/17 08:54 108 156/105 10/19/17 08:00 105 10/19/17 08:00 98.3 108 20 156/105 100 Nasal Cannula 4.0 10/19/17 07:22 Nasal Cannula 4.0 36 10/19/17 07:22 96 Nasal Cannula 4.0 36 10/19/17 07:21 106 22 Nasal Cannula 4.0 36 10/19/17 04:00 99.0 101 22 164/97 95 Nasal Cannula 4.0 10/19/17 04:00 101 10/19/17 00:00 99.2 88 24 166/91 94 Nasal Cannula 4.0 10/19/17 00:00 91 10/18/17 20:27 88 154/90 10/18/17 20:06 Nasal Cannula 4.0 36 10/18/17 20:05 97 Nasal Cannula 4.0 36 10/18/17 20:05 98 21 Nasal Cannula 4.0 36 10/18/17 20:00 87 10/18/17 20:00 98.5 87 24 145/99 95 Nasal Cannula 4.0 10/18/17 16:00 98.2 99 21 145/95 98 Nasal Cannula 4.0 10/18/17 15:47 101 10/18/17 12:00 98.2 98 21 138/92 98 Nasal Cannula 4.0 10/18/17 11:04 97 Intake and Output 10/18/17 10/19/17 19:00 07:00 Intake Total 1700 ml 1460 ml Output Total 800 ml 1000 ml Balance 900 ml 460 ml Free Water 150 ml IV Total 905 ml 590 ml Tube Feeding 645 ml 720 ml Other 150 ml Output Urine Total 800 ml 1000 ml General Appearance: WD/WN HEENT: normocephalic, atraumatic Respiratory/Chest: chest wall non-tender, normal breath sounds, no respiratory distress, chest wall tender Cardiovascular: normal rate, no JVD Abdomen: no organomegaly Skin: no rash, no lesions Microbiology Date/Time Source Procedure Growth Status 10/16/17 23:05 Sputum Gram Stain - Final Complete 10/16/17 23:05 Sputum Culture - Final Jessica Albicans Usual Upper Respiratory Adrianne Complete Laboratory Tests 10/19/17 04:00: White Blood Count 14.3#H, Red Blood Count 4.79, Hemoglobin 13.9L, Hematocrit 40.4L, Mean Corpuscular Volume 84, Mean Corpuscular Hemoglobin 28.9, Mean Corpuscular Hemoglobin Concent 34.3, Red Cell Distribution Width 12.0, Platelet Count 574H, Mean Platelet Volume 5.2L, Neutrophils (%) (Auto) 79.0H, Lymphocytes (%) (Auto) 11.9L, Monocytes (%) (Auto) 6.8, Eosinophils (%) (Auto) 1.3, Basophils (%) (Auto) 1.0, Sodium Level 133L, Potassium Level 4.2, Chloride Level 102, Carbon Dioxide Level 26, Anion Gap 5, Blood Urea Nitrogen 17, Creatinine 0.7, Estimat Glomerular Filtration Rate > 60, Glucose Level 125H, Calcium Level 9.3, Phosphorus Level 2.6, Magnesium Level 1.6L Current Medications Medications (Trade) Dose Ordered Sig/Olvin Route PRN Reason Start Time Stop Time Status Last Admin Dose Admin Acetaminophen (Tylenol) 650 mg Q4H PRN ORAL Mild Pain/Temp > 100.5 10/16/17 12:15 11/13/17 08:14 Al Hydroxide/Mg Hydroxide (Mylanta II) 30 ml Q6H PRN GT dyspepsia 10/16/17 12:30 11/10/17 12:29 Aspirin (ASA) 81 mg DAILY GT 10/17/17 09:00 11/12/17 08:59 10/19/17 08:54 Atorvastatin Calcium (Lipitor) 10 mg BEDTIME GT 10/16/17 21:00 11/11/17 20:59 10/18/17 20:27 Ceftriaxone Sodium 2 gm/ Sodium Chloride 55 ml @ 110 mls/hr Q24H IVPB 10/16/17 14:00 10/22/17 13:59 10/18/17 15:10 Dextrose/Sodium Chloride 1,000 ml @ 50 mls/hr Q20H IV 10/16/17 12:30 11/13/17 12:29 10/19/17 00:11 Heparin Sodium (Porcine) (Heparin 5000 units/ml) 5,000 units EVERY 12 HOURS SUBQ 10/16/17 21:00 11/10/17 21:59 10/19/17 08:55 Magnesium Sulfate 100 ml @ 100 mls/hr Q1H IVPB 10/19/17 10:00 10/19/17 11:59 10/19/17 10:10 Metoprolol Tartrate (Lopressor) 25 mg Q12HR GT 10/16/17 21:00 11/13/17 20:59 10/19/17 08:54 Nitroglycerin (Ntg) 0.4 mg Q5MIN X 3 DOSES PRN SL Prn Chest Pain 10/16/17 11:30 11/14/17 16:59 Ondansetron HCl (Zofran) 4 mg Q6H PRN IVP Nausea & Vomiting 10/16/17 12:30 11/10/17 12:29 Polyethylene Glycol (Miralax) 17 gm DAILYPRN PRN GT Constipation 10/16/17 12:30 11/10/17 12:29 Promethazine HCl/ Codeine (Phenergan with Codeine) 5 ml Q4H PRN GT For Cough 10/16/17 12:15 11/10/17 20:14 Valproic Acid (Depakene) 250 mg Q12HR@0630,1830 GT 10/16/17 18:30 11/14/17 18:29 10/19/17 05:32 EDDIE COLES Oct 19, 2017 10:43
[2017-10-19 12:00] VITALS: BP 164/109
--- NOTE | 2017-10-19 13:10 | GI Progress Note ---
Assessment/Plan Problems: (1) Dysphagia ICD Codes: R13.10 - Dysphagia, unspecified SNOMED: 54839483, 995854638 (2) Dementia ICD Codes: F03.90 - Unspecified dementia without behavioral disturbance SNOMED: 52631510 (3) PEG (percutaneous endoscopic gastrostomy) adjustment/replacement/removal ICD Codes: Z43.1 - Encounter for attention to gastrostomy SNOMED: 140901784, 982144006 (4) CVA, old, hemiparesis ICD Codes: I69.359 - Hemiplegia and hemiparesis following cerebral infarction affecting unspecified side SNOMED: 54703443, 39459800, [id number] Status: stable Status Narrative Discussed with Dr. Campos. Assessment/Plan SUMMARY OF FINDINGS: 1. Gastritis, status post biopsy. 2. Status post successful PEG placement. RECOMMENDATIONS: Abdominal binder. Elevate the head of the bed at all times. G-tube flush and G-tube care. GTFs per dietary abx electrolyte replacement fu labs Subjective Subjective limited Objective Last 24 Hour Vital Signs Date Time Temp Pulse Resp B/P (MAP) Pulse Ox O2 Delivery O2 Flow Rate FiO2 10/19/17 12:00 99.3 106 20 164/109 100 Nasal Cannula 4.0 10/19/17 11:51 97 10/19/17 08:54 108 156/105 10/19/17 08:00 105 10/19/17 08:00 98.3 108 20 156/105 100 Nasal Cannula 4.0 10/19/17 07:22 Nasal Cannula 4.0 36 10/19/17 07:22 96 Nasal Cannula 4.0 36 10/19/17 07:21 106 22 Nasal Cannula 4.0 36 10/19/17 04:00 99.0 101 22 164/97 95 Nasal Cannula 4.0 10/19/17 04:00 101 10/19/17 00:00 99.2 88 24 166/91 94 Nasal Cannula 4.0 10/19/17 00:00 91 10/18/17 20:27 88 154/90 10/18/17 20:06 Nasal Cannula 4.0 36 10/18/17 20:05 97 Nasal Cannula 4.0 36 10/18/17 20:05 98 21 Nasal Cannula 4.0 36 10/18/17 20:00 87 10/18/17 20:00 98.5 87 24 145/99 95 Nasal Cannula 4.0 10/18/17 16:00 98.2 99 21 145/95 98 Nasal Cannula 4.0 10/18/17 15:47 101 Intake and Output 10/18/17 10/19/17 19:00 07:00 Intake Total 1700 ml 1460 ml Output Total 800 ml 1000 ml Balance 900 ml 460 ml Free Water 150 ml IV Total 905 ml 590 ml Tube Feeding 645 ml 720 ml Other 150 ml Output Urine Total 800 ml 1000 ml Laboratory Tests Test 10/19/17 04:00 White Blood Count 14.3 K/UL (4.8-10.8) #H Red Blood Count 4.79 M/UL (4.70-6.10) Hemoglobin 13.9 G/DL (14.2-18.0) L Hematocrit 40.4 % (42.0-52.0) L Mean Corpuscular Volume 84 FL (80-99) Mean Corpuscular Hemoglobin 28.9 PG (27.0-31.0) Mean Corpuscular Hemoglobin Concent 34.3 G/DL (32.0-36.0) Red Cell Distribution Width 12.0 % (11.6-14.8) Platelet Count 574 K/UL (150-450) H Mean Platelet Volume 5.2 FL (6.5-10.1) L Neutrophils (%) (Auto) 79.0 % (45.0-75.0) H Lymphocytes (%) (Auto) 11.9 % (20.0-45.0) L Monocytes (%) (Auto) 6.8 % (1.0-10.0) Eosinophils (%) (Auto) 1.3 % (0.0-3.0) Basophils (%) (Auto) 1.0 % (0.0-2.0) Sodium Level 133 MMOL/L (136-145) L Potassium Level 4.2 MMOL/L (3.5-5.1) Chloride Level 102 MMOL/L (98-107) Carbon Dioxide Level 26 MMOL/L (21-32) Anion Gap 5 mmol/L (5-15) Blood Urea Nitrogen 17 mg/dL (7-18) Creatinine 0.7 MG/DL (0.55-1.30) Estimat Glomerular Filtration Rate > 60 mL/min (>60) Glucose Level 125 MG/DL (74-106) H Calcium Level 9.3 MG/DL (8.5-10.1) Phosphorus Level 2.6 MG/DL (2.5-4.9) Magnesium Level 1.6 MG/DL (1.8-2.4) L Height (Feet): 5 Height (Inches): 6.00 Weight (Pounds): 173 General Appearance: alert, thin Cardiovascular: normal rate Respiratory/Chest: normal breath sounds Abdominal Exam: soft, GT site - c/d/i Laura Lucas N.P. Oct 19, 2017 13:09
[2017-10-19] MEDS: cefTRIAXone 2 GM in NS 55 ML IVPB SCH (13:53)
--- NOTE | 2017-10-19 14:03 | Infectious Diseases Prog Note ---
Assessment/Plan Assessment/Plan Assessment: Fever, SP Leukocytosis Severe Sepsis- SP E.coli UTI w/ bacteremia -REnal US: Limited exam. No definite hydronephrosis. Empty bladder, containing a Cervantes catheter. Bronchitis; Suspicion for Flu despite rapid test (+URI symptoms, sick contacts) Acute hypoxic resp failure- previously improved, now worsened (10/16) -CXR 10/17: Retrocardiac atelectasis. No acute process otherwis; sp cx p -CXR 10/15: : No acute findings -Influenza neg JULIA, reslved Lactic acidosis, resolved CVA with hemiplegia, HTN, cataract, dysphagia, hx of fall, CAD/ID, CVA/TIA, dementia, seizure disorder Plan: - Continue Ceftriaxone 2 g qd abx d# ; upon discharge can be transitioned to PO Cipro 750mg bid - 10/17 SP empiric Tamiflu #02/12 -10/15 SP IV Vancomcyin #5, Meropenm #3 -10/13 SP Cefepime #3 -low threshold for contrast CT abd/p if recurrent bacteremia, persistent/ worsening fever/leukocytosis -Monitor CBC/BMP, temperatures; Trend WBC -aspiration precautions Subjective Constitutional: Denies: no symptoms, fever, chills, fatigue, anorexia, drenching sweats, other Allergies: Coded Allergies: NO KNOWN ALLERGIES (Unverified Allergy, Unknown, 09/03/15) Objective Vital Signs Last 24 Hour Vital Signs Date Time Temp Pulse Resp B/P (MAP) Pulse Ox O2 Delivery O2 Flow Rate FiO2 10/19/17 12:00 99.3 106 20 164/109 100 Nasal Cannula 4.0 10/19/17 11:51 97 10/19/17 08:54 108 156/105 10/19/17 08:00 105 10/19/17 08:00 98.3 108 20 156/105 100 Nasal Cannula 4.0 10/19/17 07:22 Nasal Cannula 4.0 36 10/19/17 07:22 96 Nasal Cannula 4.0 36 10/19/17 07:21 106 22 Nasal Cannula 4.0 36 10/19/17 04:00 99.0 101 22 164/97 95 Nasal Cannula 4.0 10/19/17 04:00 101 10/19/17 00:00 99.2 88 24 166/91 94 Nasal Cannula 4.0 10/19/17 00:00 91 10/18/17 20:27 88 154/90 10/18/17 20:06 Nasal Cannula 4.0 36 10/18/17 20:05 97 Nasal Cannula 4.0 36 10/18/17 20:05 98 21 Nasal Cannula 4.0 36 10/18/17 20:00 87 10/18/17 20:00 98.5 87 24 145/99 95 Nasal Cannula 4.0 10/18/17 16:00 98.2 99 21 145/95 98 Nasal Cannula 4.0 10/18/17 15:47 101 Height (Feet): 5 Height (Inches): 6.00 Weight (Pounds): 173 HEENT: anicteric Respiratory/Chest: normal breath sounds Cardiovascular: regularly irregular Microbiology Date/Time Source Procedure Growth Status 10/16/17 23:05 Sputum Gram Stain - Final Complete 10/16/17 23:05 Sputum Culture - Final Jessica Albicans Usual Upper Respiratory Adrianne Complete Laboratory Tests Test 10/19/17 04:00 White Blood Count 14.3 K/UL (4.8-10.8) #H Red Blood Count 4.79 M/UL (4.70-6.10) Hemoglobin 13.9 G/DL (14.2-18.0) L Hematocrit 40.4 % (42.0-52.0) L Mean Corpuscular Volume 84 FL (80-99) Mean Corpuscular Hemoglobin 28.9 PG (27.0-31.0) Mean Corpuscular Hemoglobin Concent 34.3 G/DL (32.0-36.0) Red Cell Distribution Width 12.0 % (11.6-14.8) Platelet Count 574 K/UL (150-450) H Mean Platelet Volume 5.2 FL (6.5-10.1) L Neutrophils (%) (Auto) 79.0 % (45.0-75.0) H Lymphocytes (%) (Auto) 11.9 % (20.0-45.0) L Monocytes (%) (Auto) 6.8 % (1.0-10.0) Eosinophils (%) (Auto) 1.3 % (0.0-3.0) Basophils (%) (Auto) 1.0 % (0.0-2.0) Sodium Level 133 MMOL/L (136-145) L Potassium Level 4.2 MMOL/L (3.5-5.1) Chloride Level 102 MMOL/L (98-107) Carbon Dioxide Level 26 MMOL/L (21-32) Anion Gap 5 mmol/L (5-15) Blood Urea Nitrogen 17 mg/dL (7-18) Creatinine 0.7 MG/DL (0.55-1.30) Estimat Glomerular Filtration Rate > 60 mL/min (>60) Glucose Level 125 MG/DL (74-106) H Calcium Level 9.3 MG/DL (8.5-10.1) Phosphorus Level 2.6 MG/DL (2.5-4.9) Magnesium Level 1.6 MG/DL (1.8-2.4) L Current Medications Medications (Trade) Dose Ordered Sig/Olvin Route PRN Reason Start Time Stop Time Status Last Admin Dose Admin Acetaminophen (Tylenol) 650 mg Q4H PRN ORAL Mild Pain/Temp > 100.5 10/16/17 12:15 11/13/17 08:14 Al Hydroxide/Mg Hydroxide (Mylanta II) 30 ml Q6H PRN GT dyspepsia 10/16/17 12:30 11/10/17 12:29 Aspirin (ASA) 81 mg DAILY GT 10/17/17 09:00 11/12/17 08:59 10/19/17 08:54 Atorvastatin Calcium (Lipitor) 10 mg BEDTIME GT 10/16/17 21:00 11/11/17 20:59 10/18/17 20:27 Ceftriaxone Sodium 2 gm/ Sodium Chloride 55 ml @ 110 mls/hr Q24H IVPB 10/16/17 14:00 10/22/17 13:59 10/19/17 13:53 Dextrose/Sodium Chloride 1,000 ml @ 50 mls/hr Q20H IV 10/16/17 12:30 11/13/17 12:29 10/19/17 00:11 Heparin Sodium (Porcine) (Heparin 5000 units/ml) 5,000 units EVERY 12 HOURS SUBQ 10/16/17 21:00 11/10/17 21:59 10/19/17 08:55 Metoprolol Tartrate (Lopressor) 25 mg Q12HR GT 10/16/17 21:00 11/13/17 20:59 10/19/17 08:54 Nitroglycerin (Ntg) 0.4 mg Q5MIN X 3 DOSES PRN SL Prn Chest Pain 10/16/17 11:30 11/14/17 16:59 Ondansetron HCl (Zofran) 4 mg Q6H PRN IVP Nausea & Vomiting 10/16/17 12:30 11/10/17 12:29 Polyethylene Glycol (Miralax) 17 gm DAILYPRN PRN GT Constipation 10/16/17 12:30 11/10/17 12:29 Promethazine HCl/ Codeine (Phenergan with Codeine) 5 ml Q4H PRN GT For Cough 10/16/17 12:15 11/10/17 20:14 Valproic Acid (Depakene) 250 mg Q12HR@0630,1830 GT 10/16/17 18:30 11/14/17 18:29 10/19/17 05:32 FAUSTINO AGARWAL M.D. Oct 19, 2017 14:03
[2017-10-19 16:00] VITALS: BP 156/122
[2017-10-19 20:00] VITALS: BP 148/100
--- NOTE | 2017-10-19 20:41 | Wound Care Consultation ---
Wound Assessment Wound Assessment #1: Wound Number: 1 Wound Present on Admission: Yes New Wound: No Status Change of Wound: No Wound Location Body Site Modif: right, lateral Wound Location Body Site: malleolus/ankle Wound Type: pressure ulcer Roger Test: Does not Roger Pressure Ulcer Stage: Deep Tissue Injury - SDTI Wound Thickness: Full Thickness Wound Length: 1.5 Wound Width: 1.5 Wound Depth: utd Percent of Wound Purple/Maroon: 100 Wound Drainage Amount: None Wound Drainage Odor: None/Absent Tissue Surrounding Wound: Intact Wound General Appearance: Reddened - purple Wound Assessment #2: Wound Number: 2 Wound Present on Admission: Yes New Wound: No Status Change of Wound: No Wound Location Body Site Modif: left, lower, anterior Wound Location Body Site: leg Wound Type: other - open wound etiology unknown Roger Test: Does not Roger Wound Thickness: Partial Thickness Wound Length: 4.5 Wound Width: 2.5 Wound Depth: less than 0.1 Percent of Wound [place]/Red: 100 Wound Drainage Description: Serosanguineous Wound Drainage Amount: Scant Wound Drainage Odor: None/Absent Tissue Surrounding Wound: Erythemic Wound General Appearance: Reddened, Draining Wound Comment #1 Right lateral malleolus SDTI pressure ulcer #2 Left anterior lower leg open wound. Etiology unknown #3 Right dorsal foot dry scab Reassessed this Pt. No deterioration noted. Will cont the same wound care treatment and recommendation Recommendation -Local wound care per protocol -Keep clean and dry -Optimize nutrition -Turn and reposition -Heel protector on both heels -Offload both heels -Low air loss mattress -Assess and f/u accordingly for any changes LUISA LOERA RN Oct 19, 2017 20:41
[2017-10-20] VITALS (14 sets, daily range): BP systolic 96–165; BP diastolic 52–119
[2017-10-20] MEDS: LORazepam Inj 2mg/ml 1ml IV PRN ×2 (01:54→20:53)
[2017-10-20 04:36] LABS: HEMATOCRIT 47.7 % (42.0-52.0); HEMOGLOBIN 16.3 G/DL (14.2-18.0); MEAN CORPUSCULAR VOLUME 85 FL (80-99); PLATELET COUNT 815 K/UL (150-450); RED BLOOD COUNT 5.62 M/UL (4.70-6.10); RED CELL DISTRIBUTION WIDTH 12.2 % (11.6-14.8)
[2017-10-20 04:39] LABS: WHITE BLOOD COUNT 22.1 K/UL (4.8-10.8)
[2017-10-20 05:00] LABS: ALANINE AMINOTRANSFERASE 47 U/L (12-78); ALBUMIN 2.2 G/DL (3.4-5.0); ALBUMIN/GLOBULIN RATIO 0.4 (1.0-2.7); ALKALINE PHOSPHATASE 113 U/L (46-116); ANION GAP 8 mmol/L (5-15); ASPARTATE AMINO TRANSFERASE 22 U/L (15-37); BILIRUBIN,TOTAL 0.4 MG/DL (0.2-1.0); BLOOD UREA NITROGEN 27 mg/dL (7-18); CALCIUM 9.6 MG/DL (8.5-10.1); CARBON DIOXIDE 26 MMOL/L (21-32); CHLORIDE 98 MMOL/L (98-107); CREATININE 0.9 MG/DL (0.55-1.30); POTASSIUM 4.5 MMOL/L (3.5-5.1); SODIUM 132 MMOL/L (136-145)
[2017-10-20] MEDS: Valproic Acid 250mg/5ml Liquid GT SCH ×2 (06:09→18:14)
--- NOTE | 2017-10-20 08:01 | Pulmonolgy Critical Care Note ---
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, renal Discussed with: nurses, consultants, block and case makermanager building - Objective Last 24 Hour Vital Signs Date Time Temp Pulse Resp B/P (MAP) Pulse Ox O2 Delivery O2 Flow Rate FiO2 10/20/17 06:35 94 Bi-pap 60 10/20/17 06:35 Bi-pap 60 10/20/17 06:35 124 20 Bi-pap 60 10/20/17 06:31 126 33 94 Facial 60 10/20/17 05:34 131 36 97 Facial 60 10/20/17 04:00 139 10/20/17 04:00 98.6 129 32 165/119 95 Bi-pap 60 10/20/17 03:45 60 10/20/17 03:43 138 41 95 Facial 60 10/20/17 00:00 137 10/20/17 00:00 98.2 131 24 150/99 95 Nasal Cannula 4.0 10/19/17 20:37 131 148/100 10/19/17 20:00 131 10/19/17 20:00 99.1 131 32 148/100 96 Nasal Cannula 4.0 10/19/17 19:24 Nasal Cannula 4.0 36 10/19/17 19:24 124 20 Nasal Cannula 4.0 36 10/19/17 19:24 97 Nasal Cannula 4.0 36 10/19/17 16:00 98.2 119 21 156/122 96 Nasal Cannula 4.0 10/19/17 16:00 121 10/19/17 12:00 99.3 106 20 164/109 100 Nasal Cannula 4.0 10/19/17 11:51 97 10/19/17 08:54 108 156/105 10/19/17 08:00 105 10/19/17 08:00 98.3 108 20 156/105 100 Nasal Cannula 4.0 Status: awake Condition: critical HEENT: atraumatic Lungs: clear Heart: HR/BP stable, HR/BP unstable Abdomen: non-tender, active bowel sounds, feeding tube Extremities: no C/C/E, edema Decubiti: location Critical Care - Subjective ROS Limited/Unobtainable: Yes Interval Events: ON bipap again, wbc rising FI02: 60 Vent Support Mode: BiLevel Sputum Amount: None Tube Feeding Amount: 60 I&O: Intake and Output 10/19/17 10/20/17 19:00 07:00 Intake Total 1965 ml 1145 ml Output Total 450 ml Balance 1515 ml 1145 ml Free Water 390 ml 150 ml IV Total 855 ml 575 ml Tube Feeding 720 ml 420 ml Output Urine Total 450 ml CXR: pending Labs: Laboratory Tests Test 10/20/17 04:05 10/20/17 06:18 White Blood Count 22.1 K/UL (4.8-10.8) #*H Red Blood Count 5.62 M/UL (4.70-6.10) Hemoglobin 16.3 G/DL (14.2-18.0) Hematocrit 47.7 % (42.0-52.0) Mean Corpuscular Volume 85 FL (80-99) Mean Corpuscular Hemoglobin 29.0 PG (27.0-31.0) Mean Corpuscular Hemoglobin Concent 34.2 G/DL (32.0-36.0) Red Cell Distribution Width 12.2 % (11.6-14.8) Platelet Count 815 K/UL (150-450) H Mean Platelet Volume 5.1 FL (6.5-10.1) L Neutrophils (%) (Auto) % (45.0-75.0) Lymphocytes (%) (Auto) % (20.0-45.0) Monocytes (%) (Auto) % (1.0-10.0) Eosinophils (%) (Auto) % (0.0-3.0) Basophils (%) (Auto) % (0.0-2.0) Neutrophils % (Manual) Pending Lymphocytes % (Manual) Pending Platelet Estimate Pending Platelet Morphology Pending Erythrocyte Sedimentation Rate Pending Sodium Level 132 MMOL/L (136-145) L Potassium Level 4.5 MMOL/L (3.5-5.1) Chloride Level 98 MMOL/L (98-107) Carbon Dioxide Level 26 MMOL/L (21-32) Anion Gap 8 mmol/L (5-15) Blood Urea Nitrogen 27 mg/dL (7-18) H Creatinine 0.9 MG/DL (0.55-1.30) Estimat Glomerular Filtration Rate > 60 mL/min (>60) Glucose Level 194 MG/DL (74-106) H Calcium Level 9.6 MG/DL (8.5-10.1) Phosphorus Level 4.0 MG/DL (2.5-4.9) Magnesium Level 2.2 MG/DL (1.8-2.4) Total Bilirubin 0.4 MG/DL (0.2-1.0) Aspartate Amino Transf (AST/SGOT) 22 U/L (15-37) Alanine Aminotransferase (ALT/SGPT) 47 U/L (12-78) Alkaline Phosphatase 113 U/L (46-116) C-Reactive Protein, Quantitative 23.3 mg/dL (0.00-0.90) H Total Protein 7.9 G/DL (6.4-8.2) Albumin 2.2 G/DL (3.4-5.0) L Globulin 5.7 g/dL Albumin/Globulin Ratio 0.4 (1.0-2.7) L Arterial Blood pH 7.290 (7.350-7.450) Arterial Blood Partial Pressure CO2 61.8 mmHg (35.0-45.0) *H Arterial Blood Partial Pressure O2 99.7 mmHg (75.0-100.0) Arterial Blood HCO3 29.7 mmol/L (22.0-26.0) H Arterial Blood Oxygen Saturation 96.6 % (92.0-98.0) Arterial Blood Base Excess 1.3 Dipak Test Positive EDDIE COLES Oct 20, 2017 08:01
[2017-10-20] MEDS: Aspirin Baby 81mg GT SCH (08:46)
[2017-10-20] MEDS: Heparin 5000 units/ml inj SUBQ SCH (08:46)
[2017-10-20] MEDS: Metoprolol 25mg tab GT SCH ×2 (08:47→20:54)
[2017-10-20] MEDS: cefTRIAXone 2 GM in NS 55 ML IVPB SCH (14:04)
--- NOTE | 2017-10-20 15:47 | Consultation ---
History of Present Illness General Date patient seen: Oct 20, 2017 Chief Complaint: Altered Level of Consciousness Referring physician: ROMERO Reason for Consultation: Trach evaluation Present Illness HPI 61M fpc patient found to have weakness, altered status, and poor oxygen saturation. Admitted for care and management. During hospital stay noted to have respiratory insufficiency requiring positive pressure support. give patients medical condition and altered status very concerning without aggressive monitoring or more protected airway. surgery called to evaluate for trach. patient seen, chart reviewed, exam performed. Allergies: Coded Allergies: NO KNOWN ALLERGIES (Unverified Allergy, Unknown, 09/03/15) Medication History Scheduled Aspirin* (Aspir 81*), 81 MG ORAL DAILY, (Reported) Atorvastatin Calcium* (Lipitor*), 10 MG ORAL BEDTIME Docusate Sodium* (Docusate Sodium*), 200 MG ORAL DAILY, (Reported) Metoprolol Tartrate* (Metoprolol Tartrate*), 25 MG ORAL DAILY, (Reported) Multivitamin with Minerals (Multivitamins with Minerals), 1 TAB ORAL DAILY, ( Reported) Valproate Sodium (Depakene), 750 MG PO DAILY, (Reported) Scheduled PRN Acetaminophen (Tylenol), 325 MG ORAL Q6H PRN for For Pain, (Reported) Acetaminophen* (Tylenol Extra Strength*), 1,000 MG ORAL Q6H PRN for PAIN (Mod 5- 7), (Reported) Bisacodyl (Dulcolax), 10 MG RC for Constipation, (Reported) Magnesium Hydroxide* (Milk Of Magnesia*), 30 ML ORAL DAILY PRN for Constipation, (Reported) Na Phos,M-B/Na Phos,Di-Ba* (Fleet Enema*), 133 ML RECTAL DAILY PRN for Constipation, (Reported) Polyethylene Glycol 3350* (Miralax*), 17 GM ORAL DAILY PRN for Constipation, ( Reported) Patient History Limited by: medical condition History Provided By: Medical Record, PMD Healthcare decision maker Resuscitation status Full Code Advanced Directive on File Yes Past Medical/Surgical History Past Medical/Surgical History: (1) Status epilepticus (2) structive hydrocephalus (3) Accelerated hypertension (4) Lactic acidosis (5) Fever (6) Renal failure (7) Pneumonia (8) Obstructive hydrocephalus (9) Dementia (10) Epileptic seizure, generalized (11) Hypoxemia (12) Obstructive hydrocephalus (13) CVA, old, hemiparesis (14) Bacteremia (15) PEG (percutaneous endoscopic gastrostomy) adjustment/replacement/removal (16) Dysphagia (17) Acute respiratory failure (18) Sepsis (19) Feeding by G-tube Review of Systems ROS Narrative cannot obtain given patients medical condition Physical Exam General Appearance: mild distress - on bipap Lines, tubes and drains: central line HEENT: mucous membranes moist Neck: supple, normal inspection Respiratory/Chest: decreased breath sounds, accessory muscle use, other - on bipap Cardiovascular/Chest: normal peripheral pulses, normal rate Abdomen: normal bowel sounds, non tender, soft, no organomegaly, no mass Extremities: non-tender Skin Exam: normal pigmentation Neurologic: unresponsiveness Last 24 Hour Vital Signs Date Time Temp Pulse Resp B/P (MAP) Pulse Ox O2 Delivery O2 Flow Rate FiO2 10/20/17 12:50 123 39 95 Facial 60 10/20/17 12:00 60 10/20/17 12:00 98.1 124 38 149/105 93 Bi-pap 60 10/20/17 10:41 103 31 94 Facial 60 10/20/17 08:47 130 153/111 10/20/17 08:40 121 31 98 Facial 60 10/20/17 08:00 60 10/20/17 08:00 98.2 130 34 153/111 92 Bi-pap 60 10/20/17 07:54 125 10/20/17 06:35 94 Bi-pap 60 10/20/17 06:35 Bi-pap 60 10/20/17 06:35 124 20 Bi-pap 60 10/20/17 06:31 126 33 94 Facial 60 10/20/17 05:34 131 36 97 Facial 60 10/20/17 04:00 139 10/20/17 04:00 98.6 129 32 165/119 95 Bi-pap 60 10/20/17 03:45 60 10/20/17 03:43 138 41 95 Facial 60 10/20/17 00:00 137 10/20/17 00:00 98.2 131 24 150/99 95 Nasal Cannula 4.0 10/19/17 20:37 131 148/100 10/19/17 20:00 131 10/19/17 20:00 99.1 131 32 148/100 96 Nasal Cannula 4.0 10/19/17 19:24 Nasal Cannula 4.0 36 10/19/17 19:24 124 20 Nasal Cannula 4.0 36 10/19/17 19:24 97 Nasal Cannula 4.0 36 10/19/17 16:00 98.2 119 21 156/122 96 Nasal Cannula 4.0 10/19/17 16:00 121 Intake and Output 10/19/17 10/20/17 19:00 07:00 Intake Total 1965 ml 1145 ml Output Total 450 ml Balance 1515 ml 1145 ml Free Water 390 ml 150 ml IV Total 855 ml 575 ml Tube Feeding 720 ml 420 ml Output Urine Total 450 ml Laboratory Tests Test 10/20/17 04:05 10/20/17 06:18 White Blood Count 22.1 K/UL (4.8-10.8) #*H Red Blood Count 5.62 M/UL (4.70-6.10) Hemoglobin 16.3 G/DL (14.2-18.0) Hematocrit 47.7 % (42.0-52.0) Mean Corpuscular Volume 85 FL (80-99) Mean Corpuscular Hemoglobin 29.0 PG (27.0-31.0) Mean Corpuscular Hemoglobin Concent 34.2 G/DL (32.0-36.0) Red Cell Distribution Width 12.2 % (11.6-14.8) Platelet Count 815 K/UL (150-450) H Mean Platelet Volume 5.1 FL (6.5-10.1) L Neutrophils (%) (Auto) % (45.0-75.0) Lymphocytes (%) (Auto) % (20.0-45.0) Monocytes (%) (Auto) % (1.0-10.0) Eosinophils (%) (Auto) % (0.0-3.0) Basophils (%) (Auto) % (0.0-2.0) Differential Total Cells Counted 100 Neutrophils % (Manual) 90 % (45-75) H Lymphocytes % (Manual) 5 % (20-45) L Monocytes % (Manual) 4 % (1-10) Eosinophils % (Manual) 0 % (0-3) Basophils % (Manual) 0 % (0-2) Band Neutrophils 1 % (0-8) Platelet Estimate Adequate Platelet Morphology Normal Anisocytosis 1+ Erythrocyte Sedimentation Rate 30 MM/HR (0-20) H Sodium Level 132 MMOL/L (136-145) L Potassium Level 4.5 MMOL/L (3.5-5.1) Chloride Level 98 MMOL/L (98-107) Carbon Dioxide Level 26 MMOL/L (21-32) Anion Gap 8 mmol/L (5-15) Blood Urea Nitrogen 27 mg/dL (7-18) H Creatinine 0.9 MG/DL (0.55-1.30) Estimat Glomerular Filtration Rate > 60 mL/min (>60) Glucose Level 194 MG/DL (74-106) H Calcium Level 9.6 MG/DL (8.5-10.1) Phosphorus Level 4.0 MG/DL (2.5-4.9) Magnesium Level 2.2 MG/DL (1.8-2.4) Total Bilirubin 0.4 MG/DL (0.2-1.0) Aspartate Amino Transf (AST/SGOT) 22 U/L (15-37) Alanine Aminotransferase (ALT/SGPT) 47 U/L (12-78) Alkaline Phosphatase 113 U/L (46-116) C-Reactive Protein, Quantitative 23.3 mg/dL (0.00-0.90) H Total Protein 7.9 G/DL (6.4-8.2) Albumin 2.2 G/DL (3.4-5.0) L Globulin 5.7 g/dL Albumin/Globulin Ratio 0.4 (1.0-2.7) L Arterial Blood pH 7.290 (7.350-7.450) Arterial Blood Partial Pressure CO2 61.8 mmHg (35.0-45.0) *H Arterial Blood Partial Pressure O2 99.7 mmHg (75.0-100.0) Arterial Blood HCO3 29.7 mmol/L (22.0-26.0) H Arterial Blood Oxygen Saturation 96.6 % (92.0-98.0) Arterial Blood Base Excess 1.3 Dipak Test Positive Height (Feet): 5 Height (Inches): 6.00 Weight (Pounds): 173 Medications Current Medications Medications (Trade) Dose Ordered Sig/Olvin Route PRN Reason Start Time Stop Time Status Last Admin Dose Admin Acetaminophen (Tylenol) 650 mg Q4H PRN ORAL Mild Pain/Temp > 100.5 10/16/17 12:15 11/13/17 08:14 10/20/17 03:10 Al Hydroxide/Mg Hydroxide (Mylanta II) 30 ml Q6H PRN GT dyspepsia 10/16/17 12:30 11/10/17 12:29 Aspirin (ASA) 81 mg DAILY GT 10/17/17 09:00 11/12/17 08:59 10/20/17 08:46 Atorvastatin Calcium (Lipitor) 10 mg BEDTIME GT 10/16/17 21:00 11/11/17 20:59 10/19/17 20:36 Ceftriaxone Sodium 2 gm/ Sodium Chloride 55 ml @ 110 mls/hr Q24H IVPB 10/16/17 14:00 10/22/17 13:59 10/20/17 14:04 Dextrose/Sodium Chloride 1,000 ml @ 50 mls/hr Q20H IV 10/16/17 12:30 11/13/17 12:29 10/19/17 20:36 Heparin Sodium (Porcine) (Heparin 5000 units/ml) 5,000 units EVERY 12 HOURS SUBQ 10/16/17 21:00 11/10/17 21:59 10/20/17 08:46 Lorazepam (Ativan 2mg/ml 1ml) 0.5 mg Q4H PRN IV For Anxiety 10/19/17 19:15 10/26/17 19:14 10/20/17 01:54 Metoprolol Tartrate (Lopressor) 25 mg Q12HR GT 10/16/17 21:00 11/13/17 20:59 10/20/17 08:47 Nitroglycerin (Ntg) 0.4 mg Q5MIN X 3 DOSES PRN SL Prn Chest Pain 10/16/17 11:30 11/14/17 16:59 Ondansetron HCl (Zofran) 4 mg Q6H PRN IVP Nausea & Vomiting 10/16/17 12:30 11/10/17 12:29 Polyethylene Glycol (Miralax) 17 gm DAILYPRN PRN GT Constipation 10/16/17 12:30 11/10/17 12:29 Promethazine HCl/ Codeine (Phenergan with Codeine) 5 ml Q4H PRN GT For Cough 10/16/17 12:15 11/10/17 20:14 Valproic Acid (Depakene) 250 mg Q12HR@0630,1830 GT 10/16/17 18:30 11/14/17 18:29 10/20/17 06:09 Assessment/Plan Problem List: (1) Acute respiratory failure Assessment & Plan: respiratory insufficiency, altered status, hypoxia, requires positive pressure. given findings would benefit from protected airway. trach indicated and recommended. will discuss with family to obtain consent. thank you for this consultation. will follow with you ICD Codes: J96.00 - Acute respiratory failure, unspecified whether with hypoxia or hypercapnia SNOMED: [id number] Qualifiers: Qualified Codes: J96.01 - Acute respiratory failure with hypoxia Status: stable Darren Esteban Oct 20, 2017 15:47
[2017-10-20] MEDS ORDERED: Tubing IV Secondary IV ONE (16:41)
[2017-10-20] MEDS ORDERED: D5 1/2NS 1000ml IV ONE (16:41)
[2017-10-20] MEDS ORDERED: NS 275ml ONE (16:41)
[2017-10-20] MEDS: D5 1/2NS 1,000 ML IV SCH (17:05)
[2017-10-20] MEDS ORDERED: D5 1/2NS 1,000 ML IV SCH (20:00)
[2017-10-20 20:21] LABS: ALANINE AMINOTRANSFERASE 35 U/L (12-78); ALBUMIN/GLOBULIN RATIO 0.4 (1.0-2.7); ALKALINE PHOSPHATASE 94 U/L (46-116); ANION GAP 3 mmol/L (5-15); ASPARTATE AMINO TRANSFERASE 20 U/L (15-37); BILIRUBIN,TOTAL 0.4 MG/DL (0.2-1.0); BLOOD UREA NITROGEN 36 mg/dL (7-18); CALCIUM 9.5 MG/DL (8.5-10.1); CARBON DIOXIDE 32 MMOL/L (21-32); CHLORIDE 98 MMOL/L (98-107); CREATININE 0.8 MG/DL (0.55-1.30); POTASSIUM 4.4 MMOL/L (3.5-5.1); SODIUM 133 MMOL/L (136-145)
[2017-10-20 20:32] LABS: HEMATOCRIT 48.6 % (42.0-52.0); MEAN CORPUSCULAR VOLUME 84 FL (80-99); PLATELET COUNT 770 K/UL (150-450); RED BLOOD COUNT 5.78 M/UL (4.70-6.10); RED CELL DISTRIBUTION WIDTH 12.3 % (11.6-14.8)
[2017-10-20] MEDS ORDERED: Morphine Sulfate 4mg/ml Inj IVP PRN (23:30)
[2017-10-20] MEDS ORDERED: LORazepam Inj 2mg/ml 1ml IV PRN (23:30)
[2017-10-21] VITALS (26 sets, daily range): BP systolic 80–116; BP diastolic 50–84
[2017-10-21] MEDS ORDERED: Nitroglycerin Subl 0.4mg tab SL PRN (05:30)
[2017-10-21 05:54] LABS: HEMATOCRIT 43.1 % (42.0-52.0); HEMOGLOBIN 14.6 G/DL (14.2-18.0); MEAN CORPUSCULAR VOLUME 85 FL (80-99); PLATELET COUNT 753 K/UL (150-450); RED BLOOD COUNT 5.08 M/UL (4.70-6.10); RED CELL DISTRIBUTION WIDTH 12.3 % (11.6-14.8)
[2017-10-21] MEDS ORDERED: Morphine Sulfate 4mg/ml Inj IVP PRN (06:00)
[2017-10-21] MEDS: Valproic Acid 250mg/5ml Liquid GT SCH ×2 (06:01→17:50)
[2017-10-21] MEDS: D5 1/2NS 1,000 ML IV SCH ×2 (06:01→16:11)
[2017-10-21 06:07] LABS: ALANINE AMINOTRANSFERASE 32 U/L (12-78); ALKALINE PHOSPHATASE 84 U/L (46-116); ANION GAP 7 mmol/L (5-15); ASPARTATE AMINO TRANSFERASE 20 U/L (15-37); BILIRUBIN,TOTAL 0.5 MG/DL (0.2-1.0); BLOOD UREA NITROGEN 42 mg/dL (7-18); CALCIUM 9.2 MG/DL (8.5-10.1); CARBON DIOXIDE 28 MMOL/L (21-32); CHLORIDE 98 MMOL/L (98-107); CREATININE 1.2 MG/DL (0.55-1.30); PHOSPHORUS 3.4 MG/DL (2.5-4.9); POTASSIUM 4.5 MMOL/L (3.5-5.1); SODIUM 133 MMOL/L (136-145)
--- NOTE | 2017-10-21 06:08 | Emergency Room Report ---
History of Present Illness General Chief Complaint: Altered Level of Consciousness Source: Medical Record, PMD Present Illness Allergies: Coded Allergies: NO KNOWN ALLERGIES (Unverified Allergy, Unknown, 09/03/15) Nursing Documentation-[facility] Past Medical History: No History, Except For Hx Hypertension: Yes Hx Cancer: No Hx Gastrointestinal Problems: Yes - dysphagia Hx Neurological Problems: Yes - muscle weakness, hx of fall, obstructive hydrocephalus Hx Cerebrovascular Accident: Yes Hx Seizures: Yes Hx Epilepsy: Yes Physical Exam Vital Signs Date Time Temp Pulse Resp B/P (MAP) Pulse Ox O2 Delivery O2 Flow Rate FiO2 10/11/17 18:51 102.9 112 20 112/82 99 Non-Rebreather 15.0 10/11/17 20:57 30 Procedures Critical Care Time Critical Care Time i. I feel this is a highly complex case requiring extensive working including EKG/Rhythm strip, Xray/CT/US, Blood/urine lab work, repeat exams while in ED, and administration of strong opiates/narcotics for pain control, admission to hospital or close patient follow up. Total time: 30 min bedside evaluation and treatment excludes procedures (EKG). Reason for critical care: Hypoxic, unresponsive Possible complications: hypotension, hypertension, AK, shock, arrhythmias, metabolic acidosis, end organ damage, respiratory failure. Interventions: Intubation, chest x-ray Course: Patient on BiPAP. O2 sats low. Unresponsive. Patient intubated. Chest x-ray shows good ET tube placement. O2 sats improving Consultations: nursing staff, EMS, family Performed by: Dr Brown Tolerated well condition = critical j. because of unstable vital signs this patient had a condition that could potentially threaten life or limb. I feel this is a critical patient who required my full attention while patient was considered critical. Total Critical Care Time excluding procedures was greater than 35 minutes Intubation Intubation : Consent: Emergent Intubation Method: orotracheal Tube Size (cm): 8.0 Medications: Etomidate, Rocuronium Breath Sounds after Intubation: equal Intubation Complications: no complications Post Intubation Xray: Yes Attempts: One Patient Tolerated: Well Complications: None Medical Decision Making Diagnostic Impression: Primary Impression: Sepsis Additional Impressions: Fever Renal failure Pneumonia Lactic acidosis ER Course I was called to the ICU to evaluate this patient. On BiPAP. O2 sats low. Patient is very lethargic. ABG shows hypoxia. I made decision to intubate the patient. Chest x-ray shows good ET tube placement. Poor aeration of the left lung likely due to a mucous plug. Respiratory called for suctioning. Admitting physician made aware Last Vital Signs Date Time Temp Pulse Resp B/P (MAP) Pulse Ox O2 Delivery O2 Flow Rate FiO2 10/21/17 05:22 132 27 100 10/21/17 03:00 105/71 94 Mechanical Ventilator 10/21/17 00:00 98.8 10/20/17 00:00 4.0 Status: improved Disposition: ADMITTED INPATIENT Condition: Critical Referrals: NON PHYSICIAN (PCP) KISHORE BROWN M.D. Oct 21, 2017 06:08
[2017-10-21 06:09] LABS: WHITE BLOOD COUNT 26.6 K/UL (4.8-10.8)
[2017-10-21] MEDS ORDERED: Mylanta II UD 30ml GT PRN (06:30)
[2017-10-21 07:15] LABS: ALBUMIN 1.9 G/DL (3.4-5.0)
[2017-10-21] MEDS ORDERED: LORazepam Inj 2mg/ml 1ml IV PRN (07:15)
--- NOTE | 2017-10-21 07:35 | Pulmonolgy Critical Care Note ---
Critical Care - Asmt/Plan Problems: (1) Acute respiratory failure (2) Pneumonia (3) Sepsis (4) Dementia (5) Epileptic seizure, generalized (6) Feeding by G-tube Respiratory: monitor respiratory rate, adjust FIO2, CXR, other - keep right lung elevated Cardiac: continue to monitor HR/BP Renal: F/U I&O Infectious Disease: check cultures Gastrointestinal: continue feedings/current rate Endocrine: check TSH Hematologic: monitor H/H Neurologic: PRN Ativan, PRN Morphine Prophylaxis: Protonix Notes Reviewed: renal Critical Care - Objective Last 24 Hour Vital Signs Date Time Temp Pulse Resp B/P (MAP) Pulse Ox O2 Delivery O2 Flow Rate FiO2 10/21/17 07:26 137 25 100 10/21/17 07:00 124 25 98/64 94 Mechanical Ventilator 100 10/21/17 06:00 128 24 101/74 93 Mechanical Ventilator 100 10/21/17 05:22 132 27 100 10/21/17 05:00 137 22 101/55 95 Mechanical Ventilator 100 10/21/17 04:00 100.8 134 23 92/65 92 Mechanical Ventilator 100 10/21/17 04:00 100 10/21/17 03:41 139 10/21/17 03:01 131 20 100 10/21/17 03:00 135 22 105/71 94 Mechanical Ventilator 100 10/21/17 02:30 132 23 102/68 93 Mechanical Ventilator 100 10/21/17 02:00 135 21 95/70 92 Mechanical Ventilator 100 10/21/17 01:30 135 25 82/55 91 Mechanical Ventilator 100 10/21/17 01:23 141 25 100 10/21/17 01:00 146 35 80/52 85 Mechanical Ventilator 100 10/21/17 00:00 100 10/21/17 00:00 98.8 145 40 109/74 62 Mechanical Ventilator 100 10/20/17 23:58 144 35 100 10/20/17 23:42 147 10/20/17 23:00 145 35 106/88 91 Mechanical Ventilator 100 10/20/17 22:30 140 26 140/106 95 Mechanical Ventilator 100 10/20/17 22:00 139 19 145/107 96 Mechanical Ventilator 100 10/20/17 21:31 100 10/20/17 21:30 138 18 100 10/20/17 21:30 140 19 96/64 83 Mechanical Ventilator 100 10/20/17 21:00 143 36 165/104 89 Bi-pap 100 10/20/17 20:54 144 148/91 10/20/17 20:45 143 36 148/91 89 Bi-pap 100 10/20/17 20:30 138 35 145/96 89 Bi-pap 100 10/20/17 20:15 144 37 129/95 82 Bi-pap 100 10/20/17 20:05 140 10/20/17 20:00 98.9 144 38 132/81 81 Bi-pap 100 10/20/17 20:00 136 10/20/17 20:00 60 10/20/17 18:30 Bi-pap 100 10/20/17 18:30 130 31 Bi-pap 100 10/20/17 18:30 96 Bi-pap 100 10/20/17 18:30 130 31 96 Facial 100 10/20/17 17:12 126 32 94 Facial 60 10/20/17 16:00 60 10/20/17 16:00 98.4 114 32 133/98 95 Bi-pap 60 10/20/17 16:00 121 10/20/17 15:49 119 33 94 Facial 60 10/20/17 12:50 123 39 95 Facial 60 10/20/17 12:00 60 10/20/17 12:00 122 10/20/17 12:00 98.1 124 38 149/105 93 Bi-pap 60 10/20/17 10:41 103 31 94 Facial 60 10/20/17 08:47 130 153/111 10/20/17 08:40 121 31 98 Facial 60 10/20/17 08:00 60 10/20/17 08:00 98.2 130 34 153/111 92 Bi-pap 60 10/20/17 07:54 125 Status: sedated Condition: critical HEENT: atraumatic Heart: HR/BP stable Abdomen: soft, non-tender Extremities: no C/C/E, edema Decubiti: location Critical Care - Subjective ROS Limited/Unobtainable: No ICU Day: 2 Intubation Day: 2 Interval Events: pt develped respiratory failure last night and got intubated by ER physician EKG Rhythm: Sinus Rhythm FI02: 100 Vent Support Breath Rate: 18 Vent Support Mode: AC Vent Tidal Volume: 550 Sputum Amount: Moderate PEEP: 5.0 PIP: 22 Tube Feeding Amount: 20 I&O: Intake and Output 10/20/17 10/21/17 19:00 07:00 Intake Total 805.833 ml 940 ml Output Total 750 ml 610 ml Balance 55.833 ml 330 ml IV Total 625.833 ml 900 ml Tube Feeding 100 ml Other 80 ml 40 ml Output Urine Total 750 ml 310 ml Gastric Drainage Total 300 ml CXR: right lung collapse ET-Tube: 8.0 ET Position: 23 Labs: Laboratory Tests Test 10/20/17 20:04 10/20/17 23:16 10/21/17 04:30 Arterial Blood pH 7.579 (7.350-7.450) 7.489 (7.350-7.450) Arterial Blood Partial Pressure CO2 35.2 mmHg (35.0-45.0) 35.8 mmHg (35.0-45.0) Arterial Blood Partial Pressure O2 46.0 mmHg (75.0-100.0) 48.9 mmHg (75.0-100.0) Arterial Blood HCO3 32.2 mmol/L (22.0-26.0) H 26.6 mmol/L (22.0-26.0) H Arterial Blood Oxygen Saturation 81.9 % (92.0-98.0) L 85.7 % (92.0-98.0) L Arterial Blood Base Excess 10.0 3.5 Dipak Test Positive Positive White Blood Count 26.6 K/UL (4.8-10.8) *H Red Blood Count 5.08 M/UL (4.70-6.10) Hemoglobin 14.6 G/DL (14.2-18.0) Hematocrit 43.1 % (42.0-52.0) Mean Corpuscular Volume 85 FL (80-99) Mean Corpuscular Hemoglobin 28.8 PG (27.0-31.0) Mean Corpuscular Hemoglobin Concent 33.9 G/DL (32.0-36.0) Red Cell Distribution Width 12.3 % (11.6-14.8) Platelet Count 753 K/UL (150-450) H Mean Platelet Volume 5.0 FL (6.5-10.1) L Neutrophils (%) (Auto) % (45.0-75.0) Lymphocytes (%) (Auto) % (20.0-45.0) Monocytes (%) (Auto) % (1.0-10.0) Eosinophils (%) (Auto) % (0.0-3.0) Basophils (%) (Auto) % (0.0-2.0) Neutrophils % (Manual) Pending Lymphocytes % (Manual) Pending Platelet Estimate Pending Platelet Morphology Pending Sodium Level 133 MMOL/L (136-145) L Potassium Level 4.5 MMOL/L (3.5-5.1) Chloride Level 98 MMOL/L (98-107) Carbon Dioxide Level 28 MMOL/L (21-32) Anion Gap 7 mmol/L (5-15) Blood Urea Nitrogen 42 mg/dL (7-18) H Creatinine 1.2 MG/DL (0.55-1.30) Estimat Glomerular Filtration Rate > 60 mL/min (>60) Glucose Level 141 MG/DL (74-106) H Calcium Level 9.2 MG/DL (8.5-10.1) Phosphorus Level 3.4 MG/DL (2.5-4.9) Magnesium Level 2.2 MG/DL (1.8-2.4) Total Bilirubin 0.5 MG/DL (0.2-1.0) Aspartate Amino Transf (AST/SGOT) 20 U/L (15-37) Alanine Aminotransferase (ALT/SGPT) 32 U/L (12-78) Alkaline Phosphatase 84 U/L (46-116) Total Protein 7.5 G/DL (6.4-8.2) Albumin Pending Globulin Pending EDDIE COLES Oct 21, 2017 07:35
[2017-10-21] MEDS ORDERED: Promethazine/Codeine 5ml UD GT PRN (08:15)
[2017-10-21 08:18] LABS: ALBUMIN/GLOBULIN RATIO 0.3 (1.0-2.7)
[2017-10-21] MEDS: Metoprolol 25mg tab GT SCH ×2 (09:30→20:45)
[2017-10-21] MEDS: Aspirin Baby 81mg GT SCH (09:33)
--- NOTE | 2017-10-21 09:59 | Diagnostic Imaging Report ---
Indication: Status post intubation Technique: XRAY Chest 1v Comparison: 10/17/2017 Findings: ET tube tip approximately 4.5 cm above the gabe. There is interval near complete whiteout of the entire right hemithorax with shift of the mediastinal structures to the right. This finding suggest lobar atelectasis or lung collapse. The right mainstem bronchus is truncated compared to the left. Consider mucous plug or other obstructing lesion. Underlying effusion or consolidation is not entirely excluded. No definite pneumothorax. Impression: Interval endotracheal intubation. ET tube tip approximately 4.5 cm by the gabe. Interval near complete white out of the right hemithorax with shift of mediastinal structures to the right. Findings suggest lobar atelectasis or complete lung collapse. There is truncation of the right mainstem bronchus relative the left, mucous plug or additional obstructing lesion not excluded. Consider bronchoscopy. Findings discussed with treating ICU nurse 9:45 AM 08/20/2018.
[2017-10-21] MEDS ORDERED: Miralax 17gm pkt GT PRN (12:30)
--- NOTE | 2017-10-21 13:35 | Infectious Diseases Prog Note ---
Assessment/Plan Assessment/Plan Assessment: Fever, low grade Leukocytosis increases Severe Sepsis- SP E.coli UTI w/ bacteremia -REnal US: Limited exam. No definite hydronephrosis. Empty bladder, containing a Cervantes catheter. Bronchitis; Suspicion for Flu despite rapid test (+URI symptoms, sick contacts) Acute hypoxic resp failure- intubated (10/20) Cxray 10/20 : Interval near complete white out of the right hemithorax with shift of mediastinal structures to the right. -CXR 10/17: Retrocardiac atelectasis. No acute process otherwis; sp cx p -Influenza neg JULIA, reslved Lactic acidosis, resolved CVA with hemiplegia HTN cataract dysphagia Hx of fall CAD/DC CVA/TIA dementia seizure disorder Plan: - Continue IV Zosyn and IV Vanco d# - 10/21 SP Ceftriaxone 2 g qd d# 11 - 10/17 SP empiric Tamiflu #6/5 -2/ SP IV Vancomcyin #5, Meropenm #3 -2/3 SP Cefepime #3 -low threshold for contrast CT abd/p if recurrent bacteremia, persistent/ worsening fever/leukocytosis -Monitor CBC/BMP, temperatures; Trend WBC -aspiration precautions Sputum Cx Subjective Allergies: Coded Allergies: NO KNOWN ALLERGIES (Unverified Allergy, Unknown, 09/03/15) Subjective transferred to ICU , intubated Objective Vital Signs Last 24 Hour Vital Signs Date Time Temp Pulse Resp B/P (MAP) Pulse Ox O2 Delivery O2 Flow Rate FiO2 10/21/17 11:29 128 18 100 10/21/17 11:00 129 23 101/62 100 Mechanical Ventilator 100 10/21/17 10:00 124 25 100/63 100 Mechanical Ventilator 100 10/21/17 09:45 100 10/21/17 09:30 120 90/60 10/21/17 09:23 125 26 100 10/21/17 09:00 124 25 94/70 99 Mechanical Ventilator 100 10/21/17 08:00 100 10/21/17 08:00 124 10/21/17 08:00 99.5 129 25 97/73 97 Mechanical Ventilator 100 10/21/17 07:26 137 25 100 10/21/17 07:00 124 25 98/64 94 Mechanical Ventilator 100 10/21/17 06:00 128 24 101/74 93 Mechanical Ventilator 100 10/21/17 05:22 132 27 100 10/21/17 05:00 137 22 101/55 95 Mechanical Ventilator 100 10/21/17 04:00 100.8 134 23 92/65 92 Mechanical Ventilator 100 10/21/17 04:00 100 10/21/17 03:41 139 10/21/17 03:01 131 20 100 10/21/17 03:00 135 22 105/71 94 Mechanical Ventilator 100 10/21/17 02:30 132 23 102/68 93 Mechanical Ventilator 100 10/21/17 02:00 135 21 95/70 92 Mechanical Ventilator 100 10/21/17 01:30 135 25 82/55 91 Mechanical Ventilator 100 10/21/17 01:23 141 25 100 10/21/17 01:00 146 35 80/52 85 Mechanical Ventilator 100 10/21/17 00:00 100 10/21/17 00:00 98.8 145 40 109/74 62 Mechanical Ventilator 100 10/20/17 23:58 144 35 100 10/20/17 23:42 147 10/20/17 23:00 145 35 106/88 91 Mechanical Ventilator 100 10/20/17 22:30 140 26 140/106 95 Mechanical Ventilator 100 10/20/17 22:00 139 19 145/107 96 Mechanical Ventilator 100 10/20/17 21:31 100 10/20/17 21:30 138 18 100 10/20/17 21:30 140 19 96/64 83 Mechanical Ventilator 100 10/20/17 21:00 143 36 165/104 89 Bi-pap 100 10/20/17 20:54 144 148/91 10/20/17 20:45 143 36 148/91 89 Bi-pap 100 10/20/17 20:30 138 35 145/96 89 Bi-pap 100 10/20/17 20:15 144 37 129/95 82 Bi-pap 100 10/20/17 20:05 140 10/20/17 20:00 98.9 144 38 132/81 81 Bi-pap 100 10/20/17 20:00 136 10/20/17 20:00 60 10/20/17 18:30 Bi-pap 100 10/20/17 18:30 130 31 Bi-pap 100 10/20/17 18:30 96 Bi-pap 100 10/20/17 18:30 130 31 96 Facial 100 10/20/17 17:12 126 32 94 Facial 60 10/20/17 16:00 60 10/20/17 16:00 98.4 114 32 133/98 95 Bi-pap 60 10/20/17 16:00 121 10/20/17 15:49 119 33 94 Facial 60 Height (Feet): 5 Height (Inches): 6.00 Weight (Pounds): 199 HEENT: atraumatic Respiratory/Chest: no respiratory distress Cardiovascular: normal rate Abdomen: soft, non tender Laboratory Tests Test 10/20/17 20:04 10/20/17 23:16 10/21/17 04:30 10/21/17 07:55 Arterial Blood pH 7.579 (7.350-7.450) 7.489 (7.350-7.450) 7.539 (7.350-7.450) Arterial Blood Partial Pressure CO2 35.2 mmHg (35.0-45.0) 35.8 mmHg (35.0-45.0) 30.9 mmHg (35.0-45.0) L Arterial Blood Partial Pressure O2 46.0 mmHg (75.0-100.0) 48.9 mmHg (75.0-100.0) 55.8 mmHg (75.0-100.0) L Arterial Blood HCO3 32.2 mmol/L (22.0-26.0) H 26.6 mmol/L (22.0-26.0) H 25.8 mmol/L (22.0-26.0) Arterial Blood Oxygen Saturation 81.9 % (92.0-98.0) L 85.7 % (92.0-98.0) L 91.4 % (92.0-98.0) L Arterial Blood Base Excess 10.0 3.5 3.9 Dipak Test Positive Positive Positive White Blood Count 26.6 K/UL (4.8-10.8) *H Red Blood Count 5.08 M/UL (4.70-6.10) Hemoglobin 14.6 G/DL (14.2-18.0) Hematocrit 43.1 % (42.0-52.0) Mean Corpuscular Volume 85 FL (80-99) Mean Corpuscular Hemoglobin 28.8 PG (27.0-31.0) Mean Corpuscular Hemoglobin Concent 33.9 G/DL (32.0-36.0) Red Cell Distribution Width 12.3 % (11.6-14.8) Platelet Count 753 K/UL (150-450) H Mean Platelet Volume 5.0 FL (6.5-10.1) L Neutrophils (%) (Auto) % (45.0-75.0) Lymphocytes (%) (Auto) % (20.0-45.0) Monocytes (%) (Auto) % (1.0-10.0) Eosinophils (%) (Auto) % (0.0-3.0) Basophils (%) (Auto) % (0.0-2.0) Differential Total Cells Counted 100 Neutrophils % (Manual) 88 % (45-75) H Lymphocytes % (Manual) 8 % (20-45) L Monocytes % (Manual) 4 % (1-10) Eosinophils % (Manual) 0 % (0-3) Basophils % (Manual) 0 % (0-2) Band Neutrophils 0 % (0-8) Platelet Estimate Increased H Platelet Morphology Normal Red Blood Cell Morphology Normal Sodium Level 133 MMOL/L (136-145) L Potassium Level 4.5 MMOL/L (3.5-5.1) Chloride Level 98 MMOL/L (98-107) Carbon Dioxide Level 28 MMOL/L (21-32) Anion Gap 7 mmol/L (5-15) Blood Urea Nitrogen 42 mg/dL (7-18) H Creatinine 1.2 MG/DL (0.55-1.30) Estimat Glomerular Filtration Rate > 60 mL/min (>60) Glucose Level 141 MG/DL (74-106) H Calcium Level 9.2 MG/DL (8.5-10.1) Phosphorus Level 3.4 MG/DL (2.5-4.9) Magnesium Level 2.2 MG/DL (1.8-2.4) Total Bilirubin 0.5 MG/DL (0.2-1.0) Aspartate Amino Transf (AST/SGOT) 20 U/L (15-37) Alanine Aminotransferase (ALT/SGPT) 32 U/L (12-78) Alkaline Phosphatase 84 U/L (46-116) Total Protein 7.5 G/DL (6.4-8.2) Albumin 1.9 G/DL (3.4-5.0) L Globulin 5.6 g/dL Albumin/Globulin Ratio 0.3 (1.0-2.7) L Current Medications Medications (Trade) Dose Ordered Sig/Olvin Route PRN Reason Start Time Stop Time Status Last Admin Dose Admin Acetaminophen (Tylenol) 650 mg Q4H PRN ORAL Mild Pain/Temp > 100.5 10/21/17 08:15 11/13/17 08:14 Acetaminophen (Tylenol) 650 mg Q4H PRN RECTAL Mild Pain (Pain Scale 1-3) 10/21/17 12:00 11/20/17 11:59 Al Hydroxide/Mg Hydroxide (Mylanta II) 30 ml Q6H PRN GT dyspepsia 10/21/17 06:30 11/10/17 12:29 Aspirin (ASA) 81 mg DAILY GT 10/21/17 09:00 11/12/17 08:59 10/21/17 09:33 Atorvastatin Calcium (Lipitor) 10 mg BEDTIME GT 10/21/17 21:00 11/11/17 20:59 Ceftriaxone Sodium 2 gm/ Sodium Chloride 55 ml @ 110 mls/hr Q24H IVPB 10/21/17 14:00 10/22/17 13:59 Dextrose/Sodium Chloride 1,000 ml @ 100 mls/hr Q10H IV 10/21/17 05:30 11/19/17 19:59 10/21/17 06:01 Lorazepam (Ativan 2mg/ml 1ml) 0.5 mg Q4H PRN IV For Anxiety 10/21/17 07:15 10/26/17 19:14 Lorazepam (Ativan 2mg/ml 1ml) 2 mg Q1H PRN IV PERSISTENT AGITATION 10/21/17 08:15 10/28/17 08:14 Metoprolol Tartrate (Lopressor) 25 mg Q12HR GT 10/21/17 09:00 11/13/17 20:59 Morphine Sulfate (Morphine Sulfate) 4 mg Q2H PRN IVP For Pain 10/21/17 06:00 10/28/17 05:59 Nitroglycerin (Ntg) 0.4 mg Q5MIN X 3 DOSES PRN SL Prn Chest Pain 10/21/17 05:30 11/14/17 16:59 Ondansetron HCl (Zofran) 4 mg Q6H PRN IVP Nausea & Vomiting 10/21/17 06:30 11/10/17 12:29 Polyethylene Glycol (Miralax) 17 gm DAILYPRN PRN GT Constipation 10/21/17 12:30 11/10/17 12:29 Promethazine HCl/ Codeine (Phenergan with Codeine) 5 ml Q4H PRN GT For Cough 10/21/17 08:15 11/10/17 20:14 Valproic Acid (Depakene) 250 mg Q12HR@0630,1830 GT 10/21/17 06:30 11/14/17 18:29 FAUSTINO AGARWAL M.D. Oct 21, 2017 13:35
[2017-10-21] MEDS ORDERED: cefTRIAXone 2 GM in NS 55 ML IVPB SCH (14:00)
[2017-10-21] MEDS: Piperacillin/Tazobactam 4.5 GM in NS 110 ML IVPB SCH ×2 (14:00→20:47)
[2017-10-21] MEDS ORDERED: D5 1/2NS 1000ml IV ONE ×2 (16:10→16:31)
[2017-10-21] MEDS ORDERED: NS 275ml ONE (16:10)
[2017-10-21] MEDS ORDERED: Sterile Water Irrig 1000ml IRRIG ONE (16:10)
[2017-10-21] MEDS: LORazepam Inj 2mg/ml 1ml IV PRN ×2 (17:03→20:45)
[2017-10-21] MEDS: Vancomycin 1gm in D5W 275ml IVPB SCH (17:50)
--- NOTE | 2017-10-21 19:06 | General Progress Note ---
Assessment/Plan Assessment/Plan Assessment (1) Acute respiratory failure (2) Pneumonia (3) Sepsis (4) Dementia (5) Epileptic seizure, generalized (6) Feeding by G-tube/Dysphagia Recommendations - restart TF - GT care - Vent - trach planning Subjective Allergies: Coded Allergies: NO KNOWN ALLERGIES (Unverified Allergy, Unknown, 09/03/15) Subjective Above noted now in ICU intubated trach planned Objective Last 24 Hour Vital Signs Date Time Temp Pulse Resp B/P (MAP) Pulse Ox O2 Delivery O2 Flow Rate FiO2 10/21/17 18:48 120 21 100 10/21/17 18:00 115 21 97/72 91 Mechanical Ventilator 100 10/21/17 17:18 131 30 100 10/21/17 17:00 122 21 108/84 96 Mechanical Ventilator 100 10/21/17 16:00 100 10/21/17 16:00 99.1 129 24 116/75 100 Mechanical Ventilator 100 10/21/17 16:00 130 10/21/17 15:17 134 33 100 10/21/17 15:00 131 25 100/77 99 Mechanical Ventilator 100 10/21/17 14:00 132 25 100/77 100 Mechanical Ventilator 100 10/21/17 13:20 127 22 100 10/21/17 13:00 128 23 103/77 100 Mechanical Ventilator 100 10/21/17 12:00 123 10/21/17 12:00 100 10/21/17 12:00 99.9 126 23 110/70 100 Mechanical Ventilator 100 10/21/17 11:29 128 18 100 10/21/17 11:00 129 23 101/62 100 Mechanical Ventilator 100 10/21/17 10:00 124 25 100/63 100 Mechanical Ventilator 100 10/21/17 09:45 100 10/21/17 09:30 120 90/60 10/21/17 09:23 125 26 100 10/21/17 09:00 124 25 94/70 99 Mechanical Ventilator 100 10/21/17 08:00 100 10/21/17 08:00 124 10/21/17 08:00 99.5 129 25 97/73 97 Mechanical Ventilator 100 10/21/17 07:26 137 25 100 10/21/17 07:00 124 25 98/64 94 Mechanical Ventilator 100 10/21/17 06:00 128 24 101/74 93 Mechanical Ventilator 100 10/21/17 05:22 132 27 100 10/21/17 05:00 137 22 101/55 95 Mechanical Ventilator 100 10/21/17 04:00 100.8 134 23 92/65 92 Mechanical Ventilator 100 10/21/17 04:00 100 10/21/17 03:41 139 10/21/17 03:01 131 20 100 10/21/17 03:00 135 22 105/71 94 Mechanical Ventilator 100 10/21/17 02:30 132 23 102/68 93 Mechanical Ventilator 100 10/21/17 02:00 135 21 95/70 92 Mechanical Ventilator 100 10/21/17 01:30 135 25 82/55 91 Mechanical Ventilator 100 10/21/17 01:23 141 25 100 10/21/17 01:00 146 35 80/52 85 Mechanical Ventilator 100 10/21/17 00:00 100 10/21/17 00:00 98.8 145 40 109/74 62 Mechanical Ventilator 100 10/20/17 23:58 144 35 100 10/20/17 23:42 147 10/20/17 23:00 145 35 106/88 91 Mechanical Ventilator 100 10/20/17 22:30 140 26 140/106 95 Mechanical Ventilator 100 10/20/17 22:00 139 19 145/107 96 Mechanical Ventilator 100 10/20/17 21:31 100 10/20/17 21:30 138 18 100 10/20/17 21:30 140 19 96/64 83 Mechanical Ventilator 100 10/20/17 21:00 143 36 165/104 89 Bi-pap 100 10/20/17 20:54 144 148/91 10/20/17 20:45 143 36 148/91 89 Bi-pap 100 10/20/17 20:30 138 35 145/96 89 Bi-pap 100 10/20/17 20:15 144 37 129/95 82 Bi-pap 100 10/20/17 20:05 140 10/20/17 20:00 98.9 144 38 132/81 81 Bi-pap 100 10/20/17 20:00 136 10/20/17 20:00 60 Intake and Output 10/20/17 10/21/17 19:00 07:00 Intake Total 805.833 ml 940 ml Output Total 750 ml 610 ml Balance 55.833 ml 330 ml IV Total 625.833 ml 900 ml Tube Feeding 100 ml Other 80 ml 40 ml Output Urine Total 750 ml 310 ml Gastric Drainage Total 300 ml Laboratory Tests 10/20/17 20:04: Arterial Blood pH 7.579*H, Arterial Blood Partial Pressure CO2 35.2, Arterial Blood Partial Pressure O2 46.0*L, Arterial Blood HCO3 32.2H, Arterial Blood Oxygen Saturation 81.9L, Arterial Blood Base Excess 10.0, Dipak Test Positive 10/20/17 23:16: Arterial Blood pH 7.489H, Arterial Blood Partial Pressure CO2 35.8, Arterial Blood Partial Pressure O2 48.9*L, Arterial Blood HCO3 26.6H, Arterial Blood Oxygen Saturation 85.7L, Arterial Blood Base Excess 3.5, Dipak Test Positive 10/21/17 04:30: White Blood Count 26.6*H, Red Blood Count 5.08, Hemoglobin 14.6, Hematocrit 43.1 , Mean Corpuscular Volume 85, Mean Corpuscular Hemoglobin 28.8, Mean Corpuscular Hemoglobin Concent 33.9, Red Cell Distribution Width 12.3, Platelet Count 753H, Mean Platelet Volume 5.0L, Neutrophils (%) (Auto) , Lymphocytes (%) (Auto) , Monocytes (%) (Auto) , Eosinophils (%) (Auto) , Basophils (%) (Auto) , Differential Total Cells Counted 100, Neutrophils % (Manual) 88H, Lymphocytes % (Manual) 8L, Monocytes % (Manual) 4, Eosinophils % (Manual) 0, Basophils % ( Manual) 0, Band Neutrophils 0, Platelet Estimate IncreasedH, Platelet Morphology Normal, Red Blood Cell Morphology Normal, Sodium Level 133L, Potassium Level 4.5, Chloride Level 98, Carbon Dioxide Level 28, Anion Gap 7, Blood Urea Nitrogen 42H, Creatinine 1.2, Estimat Glomerular Filtration Rate > 60 , Glucose Level 141H, Calcium Level 9.2, Phosphorus Level 3.4, Magnesium Level 2.2, Total Bilirubin 0.5, Aspartate Amino Transf (AST/SGOT) 20, Alanine Aminotransferase (ALT/SGPT) 32, Alkaline Phosphatase 84, Total Protein 7.5, Albumin 1.9L, Globulin 5.6, Albumin/Globulin Ratio 0.3L 10/21/17 07:55: Arterial Blood pH 7.539H, Arterial Blood Partial Pressure CO2 30.9L, Arterial Blood Partial Pressure O2 55.8L, Arterial Blood HCO3 25.8, Arterial Blood Oxygen Saturation 91.4L, Arterial Blood Base Excess 3.9, Dipak Test Positive Height (Feet): 5 Height (Inches): 6.00 Weight (Pounds): 199 Objective WDWN NCAT supple (+) ETT Coarse BS RRR Soft (+) GT no edema obtunded TRISHA VALDES Oct 21, 2017 19:06
[2017-10-21] MEDS ORDERED: Etomidate 40mg/20ml Inj IV ONE (20:39)
[2017-10-21] MEDS ORDERED: Zemuron 50mg/5ml Inj IV ONE (20:39)
[2017-10-21] MEDS: Acetaminophen 650 MG SUPP RECTAL PRN (20:44)
[2017-10-22] VITALS (23 sets, daily range): BP systolic 101–132; BP diastolic 62–108
[2017-10-22] MEDS: D5 1/2NS 1,000 ML IV SCH ×3 (02:00→21:32)
[2017-10-22] MEDS: Acetaminophen 650 MG SUPP RECTAL PRN (02:07)
[2017-10-22 04:00] LABS: BASOPHILS % (AUTO) 0.6 % (0.0-2.0); EOSINOPHILS % (AUTO) 1.3 % (0.0-3.0); HEMATOCRIT 39.1 % (42.0-52.0); HEMOGLOBIN 13.3 G/DL (14.2-18.0); LYMPHOCYTES % (AUTO) 6.6 % (20.0-45.0); MEAN CORPUSCULAR VOLUME 85 FL (80-99); MONOCYTES % (AUTO) 7.6 % (1.0-10.0); NEUTROPHILS % (AUTO) 83.8 % (45.0-75.0); PLATELET COUNT 714 K/UL (150-450); RED BLOOD COUNT 4.62 M/UL (4.70-6.10); RED CELL DISTRIBUTION WIDTH 12.2 % (11.6-14.8); WHITE BLOOD COUNT 14.5 K/UL (4.8-10.8)
[2017-10-22 04:30] LABS: ALANINE AMINOTRANSFERASE 38 U/L (12-78); ALBUMIN 1.8 G/DL (3.4-5.0); ALBUMIN/GLOBULIN RATIO 0.4 (1.0-2.7); ALKALINE PHOSPHATASE 103 U/L (46-116); ANION GAP 9 mmol/L (5-15); ASPARTATE AMINO TRANSFERASE 29 U/L (15-37); BILIRUBIN,TOTAL 0.6 MG/DL (0.2-1.0); BLOOD UREA NITROGEN 53 mg/dL (7-18); CALCIUM 8.4 MG/DL (8.5-10.1); CARBON DIOXIDE 28 MMOL/L (21-32); CHLORIDE 95 MMOL/L (98-107); CREATININE 1.5 MG/DL (0.55-1.30); PHOSPHORUS 4.5 MG/DL (2.5-4.9); SODIUM 132 MMOL/L (136-145)
[2017-10-22] MEDS: Vancomycin 1gm in D5W 275ml IVPB SCH ×2 (04:40→17:50)
[2017-10-22] MEDS: Piperacillin/Tazobactam 4.5 GM in NS 110 ML IVPB SCH ×3 (06:00→21:32)
[2017-10-22] MEDS: Valproic Acid 250mg/5ml Liquid GT SCH ×2 (06:10→17:50)
[2017-10-22] MEDS: Aspirin Baby 81mg GT SCH (08:04)
[2017-10-22] MEDS: Metoprolol 25mg tab GT SCH ×2 (08:04→20:39)
[2017-10-22] MEDS ORDERED: Tubing IV Secondary IV ONE ×2 (10:05→10:06)
[2017-10-22] MEDS ORDERED: NS 500ML ONE (10:06)
[2017-10-22] MEDS ORDERED: D5 1/2NS 1000ml IV ONE (10:06)
--- NOTE | 2017-10-22 10:14 | Pulmonolgy Critical Care Note ---
Critical Care - Asmt/Plan Problems: (1) Acute respiratory failure (2) Pneumonia (3) Sepsis (4) Dementia (5) Epileptic seizure, generalized (6) Feeding by G-tube Respiratory: monitor respiratory rate, adjust FIO2, CXR Cardiac: continue to monitor HR/BP Renal: F/U I&O, keep IV fluid Infectious Disease: check cultures Gastrointestinal: continue feedings/current rate Endocrine: continue sliding scale insulin Hematologic: monitor H/H, transfuse if hgb<8.5 Neurologic: PRN Ativan, PRN Morphine, keep patient comfortable Prophylaxis: Heparin Notes Reviewed: cardio Discussed with: nurses, consultants, bilingual patient support caseworkerenvironmental health safety manager - Objective Last 24 Hour Vital Signs Date Time Temp Pulse Resp B/P (MAP) Pulse Ox O2 Delivery O2 Flow Rate FiO2 10/22/17 09:15 114 26 100 10/22/17 09:00 107 20 111/71 100 Mechanical Ventilator 100 10/22/17 08:04 108 115/81 10/22/17 08:00 100 10/22/17 08:00 119 10/22/17 08:00 98.8 108 24 115/81 100 Mechanical Ventilator 100 10/22/17 07:24 115 24 100 10/22/17 07:00 120 31 115/81 100 Mechanical Ventilator 100 10/22/17 06:00 99.1 108 26 121/76 100 Mechanical Ventilator 100 10/22/17 05:03 111 29 100 10/22/17 05:00 107 29 132/108 100 Mechanical Ventilator 100 10/22/17 04:00 100 10/22/17 04:00 111 10/22/17 04:00 99.7 120 23 119/80 99 100 10/22/17 03:11 113 27 100 10/22/17 03:00 110 28 115/70 100 Mechanical Ventilator 100 10/22/17 02:37 100.0 10/22/17 02:00 118 33 112/68 100 Mechanical Ventilator 100 10/22/17 01:11 111 24 100 10/22/17 01:00 112 30 114/62 100 Mechanical Ventilator 100 10/22/17 00:00 111 10/22/17 00:00 100.0 117 14 123/76 100 Mechanical Ventilator 100 10/21/17 23:00 100.3 115 34 111/73 99 Mechanical Ventilator 100 10/21/17 22:48 120 25 100 10/21/17 22:00 100.4 122 18 96/68 99 Mechanical Ventilator 100 10/21/17 21:10 123 28 100 10/21/17 21:00 100.9 120 18 94/50 100 Mechanical Ventilator 100 10/21/17 20:45 128 104/63 10/21/17 20:00 100 10/21/17 20:00 122 10/21/17 20:00 101.4 129 18 94/69 100 Mechanical Ventilator 100 10/21/17 19:00 119 21 100/77 100 Mechanical Ventilator 100 10/21/17 18:48 120 21 100 10/21/17 18:00 115 21 97/72 91 Mechanical Ventilator 100 10/21/17 17:18 131 30 100 10/21/17 17:00 122 21 108/84 96 Mechanical Ventilator 100 10/21/17 16:00 100 10/21/17 16:00 99.1 129 24 116/75 100 Mechanical Ventilator 100 10/21/17 16:00 130 10/21/17 15:17 134 33 100 10/21/17 15:00 131 25 100/77 99 Mechanical Ventilator 100 10/21/17 14:00 132 25 100/77 100 Mechanical Ventilator 100 10/21/17 13:20 127 22 100 10/21/17 13:00 128 23 103/77 100 Mechanical Ventilator 100 10/21/17 12:00 123 10/21/17 12:00 100 10/21/17 12:00 99.9 126 23 110/70 100 Mechanical Ventilator 100 10/21/17 11:29 128 18 100 10/21/17 11:00 129 23 101/62 100 Mechanical Ventilator 100 Status: awake Condition: critical HEENT: atraumatic, normocephalic Lungs: clear Heart: HR/BP stable, HR/BP unstable Abdomen: soft, non-tender, feeding tube Extremities: edema Decubiti: location Micro: Microbiology Date/Time Source Procedure Growth Status 10/21/17 08:30 Sputum Gram Stain Pending Resulted 10/21/17 08:30 Sputum Sputum Culture - Preliminary Resulted Critical Care - Subjective ROS Limited/Unobtainable: Yes ICU Day: 3 Intubation Day: 3 Condition: critical EKG Rhythm: Sinus Rhythm FI02: 100 Vent Support Breath Rate: 18 Vent Support Mode: AC Vent Tidal Volume: 550 Sputum Amount: Moderate PEEP: 10.0 PIP: 29 Tube Feeding Amount: 20 I&O: Intake and Output 10/21/17 10/22/17 19:00 07:00 Intake Total 1293.7 ml 2045.5 ml Output Total 865 ml 1245 ml Balance 428.7 ml 800.5 ml IV Total 1293.7 ml 1995.5 ml Other 50 ml Output Urine Total 265 ml 445 ml Gastric Drainage Total 600 ml 800 ml CXR: right lung opened up ET-Tube: 8.0 ET Position: 23 Labs: Laboratory Tests Test 10/22/17 03:35 10/22/17 07:45 White Blood Count 14.5 K/UL (4.8-10.8) H Red Blood Count 4.62 M/UL (4.70-6.10) L Hemoglobin 13.3 G/DL (14.2-18.0) L Hematocrit 39.1 % (42.0-52.0) L Mean Corpuscular Volume 85 FL (80-99) Mean Corpuscular Hemoglobin 28.7 PG (27.0-31.0) Mean Corpuscular Hemoglobin Concent 33.9 G/DL (32.0-36.0) Red Cell Distribution Width 12.2 % (11.6-14.8) Platelet Count 714 K/UL (150-450) H Mean Platelet Volume 5.4 FL (6.5-10.1) L Neutrophils (%) (Auto) 83.8 % (45.0-75.0) H Lymphocytes (%) (Auto) 6.6 % (20.0-45.0) L Monocytes (%) (Auto) 7.6 % (1.0-10.0) Eosinophils (%) (Auto) 1.3 % (0.0-3.0) Basophils (%) (Auto) 0.6 % (0.0-2.0) Sodium Level 132 MMOL/L (136-145) L Potassium Level 4.0 MMOL/L (3.5-5.1) Chloride Level 95 MMOL/L (98-107) L Carbon Dioxide Level 28 MMOL/L (21-32) Anion Gap 9 mmol/L (5-15) Blood Urea Nitrogen 53 mg/dL (7-18) H Creatinine 1.5 MG/DL (0.55-1.30) H Estimat Glomerular Filtration Rate 57.7 mL/min (>60) Glucose Level 144 MG/DL (74-106) H Calcium Level 8.4 MG/DL (8.5-10.1) L Phosphorus Level 4.5 MG/DL (2.5-4.9) Magnesium Level 2.4 MG/DL (1.8-2.4) Total Bilirubin 0.6 MG/DL (0.2-1.0) Aspartate Amino Transf (AST/SGOT) 29 U/L (15-37) Alanine Aminotransferase (ALT/SGPT) 38 U/L (12-78) Alkaline Phosphatase 103 U/L (46-116) Total Protein 6.6 G/DL (6.4-8.2) Albumin 1.8 G/DL (3.4-5.0) L Globulin 4.8 g/dL Albumin/Globulin Ratio 0.4 (1.0-2.7) L Arterial Blood pH 7.460 (7.350-7.450) Arterial Blood Partial Pressure CO2 39.5 mmHg (35.0-45.0) Arterial Blood Partial Pressure O2 204.6 mmHg (75.0-100.0) H Arterial Blood HCO3 27.5 mmol/L (22.0-26.0) H Arterial Blood Oxygen Saturation 99.1 % (92.0-98.0) H Arterial Blood Base Excess 3.5 Dipak Test Positive EDDIE COLES Oct 22, 2017 10:14
--- NOTE | 2017-10-22 11:10 | Diagnostic Imaging Report ---
Indication: Dyspnea Comparison: 10/20/2017 A single view chest radiograph was obtained. Findings: Right lung has reexpanded. There is some interstitial opacities within the right lung which probably represents reexpansion edema. Endotracheal tube is in good position. Heart size is normal. There is mild atelectasis changes at the left lung base. IMPRESSION: Interval reexpansion of the right lung. Reexpansion edema within the right lung probably present. Infiltrate versus atelectasis left lung base
--- NOTE | 2017-10-22 11:52 | GI Progress Note ---
Assessment/Plan Problems: (1) Dysphagia ICD Codes: R13.10 - Dysphagia, unspecified SNOMED: 29511666, 208971853 (2) Dementia ICD Codes: F03.90 - Unspecified dementia without behavioral disturbance SNOMED: 56161519 (3) PEG (percutaneous endoscopic gastrostomy) adjustment/replacement/removal ICD Codes: Z43.1 - Encounter for attention to gastrostomy SNOMED: 064005527, 795241000 (4) CVA, old, hemiparesis ICD Codes: I69.359 - Hemiplegia and hemiparesis following cerebral infarction affecting unspecified side SNOMED: 06961460, 19212310, [id number] Status: not improved, unchanged Status Narrative Discussed with Dr. Campos. Assessment/Plan Assessment (1) Acute respiratory failure (2) Pneumonia (3) Sepsis (4) Dementia (5) Epileptic seizure, generalized (6) Feeding by G-tube/Dysphagia Recommendations - restart TF - GT care - Vent - trach planning Subjective Subjective limited Objective Last 24 Hour Vital Signs Date Time Temp Pulse Resp B/P (MAP) Pulse Ox O2 Delivery O2 Flow Rate FiO2 10/22/17 11:00 104 20 106/78 100 Mechanical Ventilator 100 10/22/17 10:00 104 21 106/78 100 Mechanical Ventilator 100 10/22/17 09:15 114 26 100 10/22/17 09:00 107 20 111/71 100 Mechanical Ventilator 100 10/22/17 08:04 108 115/81 10/22/17 08:00 100 10/22/17 08:00 119 10/22/17 08:00 98.8 108 24 115/81 100 Mechanical Ventilator 100 10/22/17 07:24 115 24 100 10/22/17 07:00 120 31 115/81 100 Mechanical Ventilator 100 10/22/17 06:00 99.1 108 26 121/76 100 Mechanical Ventilator 100 10/22/17 05:03 111 29 100 10/22/17 05:00 107 29 132/108 100 Mechanical Ventilator 100 10/22/17 04:00 100 10/22/17 04:00 111 10/22/17 04:00 99.7 120 23 119/80 99 100 10/22/17 03:11 113 27 100 10/22/17 03:00 110 28 115/70 100 Mechanical Ventilator 100 10/22/17 02:37 100.0 10/22/17 02:00 118 33 112/68 100 Mechanical Ventilator 100 10/22/17 01:11 111 24 100 10/22/17 01:00 112 30 114/62 100 Mechanical Ventilator 100 10/22/17 00:00 111 10/22/17 00:00 100.0 117 14 123/76 100 Mechanical Ventilator 100 10/21/17 23:00 100.3 115 34 111/73 99 Mechanical Ventilator 100 10/21/17 22:48 120 25 100 10/21/17 22:00 100.4 122 18 96/68 99 Mechanical Ventilator 100 10/21/17 21:10 123 28 100 10/21/17 21:00 100.9 120 18 94/50 100 Mechanical Ventilator 100 10/21/17 20:45 128 104/63 10/21/17 20:00 100 10/21/17 20:00 122 10/21/17 20:00 101.4 129 18 94/69 100 Mechanical Ventilator 100 10/21/17 19:00 119 21 100/77 100 Mechanical Ventilator 100 10/21/17 18:48 120 21 100 10/21/17 18:00 115 21 97/72 91 Mechanical Ventilator 100 10/21/17 17:18 131 30 100 10/21/17 17:00 122 21 108/84 96 Mechanical Ventilator 100 10/21/17 16:00 100 10/21/17 16:00 99.1 129 24 116/75 100 Mechanical Ventilator 100 10/21/17 16:00 130 10/21/17 15:17 134 33 100 10/21/17 15:00 131 25 100/77 99 Mechanical Ventilator 100 10/21/17 14:00 132 25 100/77 100 Mechanical Ventilator 100 10/21/17 13:20 127 22 100 10/21/17 13:00 128 23 103/77 100 Mechanical Ventilator 100 10/21/17 12:00 123 10/21/17 12:00 100 10/21/17 12:00 99.9 126 23 110/70 100 Mechanical Ventilator 100 Intake and Output 10/21/17 10/22/17 19:00 07:00 Intake Total 1293.7 ml 2045.5 ml Output Total 865 ml 1245 ml Balance 428.7 ml 800.5 ml IV Total 1293.7 ml 1995.5 ml Other 50 ml Output Urine Total 265 ml 445 ml Gastric Drainage Total 600 ml 800 ml Laboratory Tests Test 10/22/17 03:35 10/22/17 07:45 White Blood Count 14.5 K/UL (4.8-10.8) H Red Blood Count 4.62 M/UL (4.70-6.10) L Hemoglobin 13.3 G/DL (14.2-18.0) L Hematocrit 39.1 % (42.0-52.0) L Mean Corpuscular Volume 85 FL (80-99) Mean Corpuscular Hemoglobin 28.7 PG (27.0-31.0) Mean Corpuscular Hemoglobin Concent 33.9 G/DL (32.0-36.0) Red Cell Distribution Width 12.2 % (11.6-14.8) Platelet Count 714 K/UL (150-450) H Mean Platelet Volume 5.4 FL (6.5-10.1) L Neutrophils (%) (Auto) 83.8 % (45.0-75.0) H Lymphocytes (%) (Auto) 6.6 % (20.0-45.0) L Monocytes (%) (Auto) 7.6 % (1.0-10.0) Eosinophils (%) (Auto) 1.3 % (0.0-3.0) Basophils (%) (Auto) 0.6 % (0.0-2.0) Sodium Level 132 MMOL/L (136-145) L Potassium Level 4.0 MMOL/L (3.5-5.1) Chloride Level 95 MMOL/L (98-107) L Carbon Dioxide Level 28 MMOL/L (21-32) Anion Gap 9 mmol/L (5-15) Blood Urea Nitrogen 53 mg/dL (7-18) H Creatinine 1.5 MG/DL (0.55-1.30) H Estimat Glomerular Filtration Rate 57.7 mL/min (>60) Glucose Level 144 MG/DL (74-106) H Calcium Level 8.4 MG/DL (8.5-10.1) L Phosphorus Level 4.5 MG/DL (2.5-4.9) Magnesium Level 2.4 MG/DL (1.8-2.4) Total Bilirubin 0.6 MG/DL (0.2-1.0) Aspartate Amino Transf (AST/SGOT) 29 U/L (15-37) Alanine Aminotransferase (ALT/SGPT) 38 U/L (12-78) Alkaline Phosphatase 103 U/L (46-116) Total Protein 6.6 G/DL (6.4-8.2) Albumin 1.8 G/DL (3.4-5.0) L Globulin 4.8 g/dL Albumin/Globulin Ratio 0.4 (1.0-2.7) L Arterial Blood pH 7.460 (7.350-7.450) Arterial Blood Partial Pressure CO2 39.5 mmHg (35.0-45.0) Arterial Blood Partial Pressure O2 204.6 mmHg (75.0-100.0) H Arterial Blood HCO3 27.5 mmol/L (22.0-26.0) H Arterial Blood Oxygen Saturation 99.1 % (92.0-98.0) H Arterial Blood Base Excess 3.5 Dipak Test Positive Height (Feet): 5 Height (Inches): 6.00 Weight (Pounds): 205 General Appearance: no apparent distress, thin Cardiovascular: normal rate Respiratory/Chest: other - [facility] vent Abdominal Exam: normal bowel sounds, non tender, soft, GT site - c/d/i Laura Lucas N.P. Oct 22, 2017 11:52
--- NOTE | 2017-10-22 19:13 | Emergency Room Report ---
History of Present Illness General Chief Complaint: Altered Level of Consciousness Source: Medical Record, PMD Present Illness Allergies: Coded Allergies: NO KNOWN ALLERGIES (Unverified Allergy, Unknown, 09/03/15) Patient History Reviewed Nursing Documentation: PMH: Agreed, PSxH: Agreed Nursing Documentation-PMH Past Medical History: No History, Except For Hx Hypertension: Yes Hx Cancer: No Hx Gastrointestinal Problems: Yes - dysphagia Hx Neurological Problems: Yes - muscle weakness, hx of fall, obstructive hydrocephalus Hx Cerebrovascular Accident: Yes Hx Seizures: Yes Hx Epilepsy: Yes Physical Exam Vital Signs Date Time Temp Pulse Resp B/P (MAP) Pulse Ox O2 Delivery O2 Flow Rate FiO2 10/11/17 18:51 102.9 112 20 112/82 99 Non-Rebreather 15.0 10/11/17 20:57 30 Procedures Intubation Intubation : Time of Intubation: 19:07 Intubation Method: orotracheal Tube Size (cm): 7.5 Medications: Etomidate, Rocuronium Breath Sounds after Intubation: equal Intubation Complications: no complications Post Intubation Xray: Yes Attempts: One Patient Tolerated: Well Complications: None Medical Decision Making Diagnostic Impression: Primary Impression: Sepsis Additional Impressions: Fever Renal failure Pneumonia Lactic acidosis Last Vital Signs Date Time Temp Pulse Resp B/P (MAP) Pulse Ox O2 Delivery O2 Flow Rate FiO2 10/22/17 18:14 Non-Rebreather 15.0 100 10/22/17 18:00 122 25 101/82 94 10/22/17 16:00 98.8 Disposition: ADMITTED INPATIENT Condition: Critical Referrals: NON PHYSICIAN (PCP) Royal Rocha Oct 22, 2017 19:12
[2017-10-22] MEDS: LORazepam Inj 2mg/ml 1ml IV PRN (21:33)
[2017-10-23] VITALS (24 sets, daily range): BP systolic 96–141; BP diastolic 57–95
[2017-10-23] MEDS: Piperacillin/Tazobactam 4.5 GM in NS 110 ML IVPB SCH ×3 (06:01→21:29)
[2017-10-23] MEDS: Valproic Acid 250mg/5ml Liquid GT SCH ×2 (06:02→18:11)
[2017-10-23 06:31] LABS: BASOPHILS % (AUTO) 1.3 % (0.0-2.0); EOSINOPHILS % (AUTO) 2.9 % (0.0-3.0); HEMATOCRIT 36.2 % (42.0-52.0); HEMOGLOBIN 12.2 G/DL (14.2-18.0); LYMPHOCYTES % (AUTO) 6.2 % (20.0-45.0); MEAN CORPUSCULAR VOLUME 85 FL (80-99); MONOCYTES % (AUTO) 7.4 % (1.0-10.0); NEUTROPHILS % (AUTO) 82.2 % (45.0-75.0); PLATELET COUNT 669 K/UL (150-450); RED BLOOD COUNT 4.28 M/UL (4.70-6.10); RED CELL DISTRIBUTION WIDTH 12.3 % (11.6-14.8); WHITE BLOOD COUNT 12.2 K/UL (4.8-10.8)
[2017-10-23 07:13] LABS: ALANINE AMINOTRANSFERASE 51 U/L (12-78); ALBUMIN 1.5 G/DL (3.4-5.0); ALBUMIN/GLOBULIN RATIO 0.3 (1.0-2.7); ALKALINE PHOSPHATASE 133 U/L (46-116); ANION GAP 7 mmol/L (5-15); ASPARTATE AMINO TRANSFERASE 39 U/L (15-37); BILIRUBIN,TOTAL 0.5 MG/DL (0.2-1.0); BLOOD UREA NITROGEN 32 mg/dL (7-18); CALCIUM 8.2 MG/DL (8.5-10.1); CARBON DIOXIDE 28 MMOL/L (21-32); CHLORIDE 97 MMOL/L (98-107); POTASSIUM 3.4 MMOL/L (3.5-5.1); SODIUM 132 MMOL/L (136-145)
[2017-10-23] MEDS: Vancomycin 1gm in D5W 275ml IVPB SCH (07:17)
[2017-10-23] MEDS: D5 1/2NS 1,000 ML IV SCH ×2 (07:46→18:10)
[2017-10-23 07:47] LABS: INR 1.5 (0.9-1.1)
[2017-10-23] MEDS: Aspirin Baby 81mg GT SCH (08:42)
--- NOTE | 2017-10-23 09:30 | Pulmonolgy Critical Care Note ---
Critical Care - Asmt/Plan Problems: (1) Acute respiratory failure (2) Pneumonia (3) Sepsis (4) Dementia (5) Epileptic seizure, generalized (6) Feeding by G-tube Respiratory: monitor respiratory rate, adjust FIO2 Cardiac: continue to monitor HR/BP Renal: F/U I&O, keep IV fluid Infectious Disease: check cultures Gastrointestinal: continue feedings/current rate, hold feedings Endocrine: check TSH Hematologic: monitor H/H, transfuse if hgb<8.5 Neurologic: PRN Ativan, keep patient comfortable Affect: PRN ativan Prophylaxis: Protonix, Heparin Notes Reviewed: cardio Discussed with: nurses, consultants, family member Critical Care - Objective Last 24 Hour Vital Signs Date Time Temp Pulse Resp B/P (MAP) Pulse Ox O2 Delivery O2 Flow Rate FiO2 10/23/17 08:50 112 20 70 10/23/17 08:00 70 10/23/17 08:00 99.3 118 22 127/78 97 Mechanical Ventilator 70 10/23/17 07:23 108 10/23/17 07:00 109 24 112/75 100 Mechanical Ventilator 70 10/23/17 06:33 114 21 70 10/23/17 06:00 117 24 114/72 96 Mechanical Ventilator 70 10/23/17 05:00 107 24 102/57 98 Mechanical Ventilator 70 10/23/17 04:49 117 22 70 10/23/17 04:00 99.7 117 20 107/65 97 Mechanical Ventilator 70 10/23/17 03:51 118 10/23/17 03:01 115 26 70 10/23/17 03:00 114 22 110/67 100 Mechanical Ventilator 75 10/23/17 02:00 99.9 114 21 107/60 98 Mechanical Ventilator 75 10/23/17 01:18 101.3 10/23/17 01:05 114 21 75 10/23/17 01:05 75 10/23/17 01:05 101.3 75 10/23/17 01:00 115 27 96/67 100 Mechanical Ventilator 80 10/23/17 00:19 101.3 10/23/17 00:00 80 10/23/17 00:00 101.3 129 28 114/68 95 Mechanical Ventilator 80 10/22/17 23:53 130 10/22/17 23:20 130 31 80 10/22/17 23:00 127 27 123/87 99 Mechanical Ventilator 80 10/22/17 22:00 129 25 110/68 94 Mechanical Ventilator 80 10/22/17 21:13 125 18 80 10/22/17 21:00 126 26 109/81 100 Mechanical Ventilator 80 10/22/17 20:39 127 121/72 10/22/17 20:00 80 10/22/17 20:00 99.3 129 19 121/72 100 Mechanical Ventilator 80 10/22/17 19:59 115 10/22/17 19:00 80 10/22/17 19:00 127 18 80 10/22/17 19:00 128 25 130/84 100 Mechanical Ventilator 80 10/22/17 18:14 Non-Rebreather 15.0 100 10/22/17 18:00 122 25 101/82 94 Non-Rebreather 15.0 10/22/17 17:25 100 10/22/17 17:02 118 27 100 10/22/17 17:00 113 19 115/66 100 Mechanical Ventilator 80 10/22/17 16:00 80 10/22/17 16:00 115 10/22/17 16:00 98.8 113 23 102/72 100 Mechanical Ventilator 80 10/22/17 15:10 114 25 100 10/22/17 15:00 113 19 115/66 100 Mechanical Ventilator 80 10/22/17 13:40 99.8 10/22/17 13:28 114 22 100 10/22/17 13:00 118 20 104/71 100 Mechanical Ventilator 80 10/22/17 12:00 80 10/22/17 12:00 107 10/22/17 12:00 99.8 109 24 104/71 100 Mechanical Ventilator 80 10/22/17 11:14 106 22 100 10/22/17 11:00 104 20 106/78 100 Mechanical Ventilator 100 10/22/17 10:00 104 21 106/78 100 Mechanical Ventilator 100 Status: awake, sedated HEENT: atraumatic Neck: full ROM Lungs: clear Heart: HR/BP stable, HR/BP unstable Abdomen: non-tender, active bowel sounds, feeding tube Micro: Microbiology Date/Time Source Procedure Growth Status 10/21/17 08:30 Sputum Gram Stain - Final Complete 10/21/17 08:30 Sputum Sputum Culture - Final NORMAL UPPER RESPIRATORY BALA PRESENT Complete Critical Care - Subjective ROS Limited/Unobtainable: Yes EKG Rhythm: Sinus Rhythm FI02: 70 Vent Support Breath Rate: 18 Vent Support Mode: AC Vent Tidal Volume: 550 Sputum Amount: Small PEEP: 10.0 PIP: 30 Tube Feeding Amount: 20 I&O: Intake and Output 10/22/17 10/23/17 19:00 07:00 Intake Total 1433.75 ml 1762.5 ml Output Total 560 ml 620 ml Balance 873.75 ml 1142.5 ml IV Total 1433.75 ml 1612.5 ml Other 150 ml Output Urine Total 560 ml 620 ml CXR: ET in goo position ET-Tube: 7.5 ET Position: 24 Labs: Laboratory Tests Test 10/22/17 20:10 10/23/17 06:00 10/23/17 08:50 Arterial Blood pH 7.480 (7.350-7.450) 7.522 (7.350-7.450) Arterial Blood Partial Pressure CO2 44.2 mmHg (35.0-45.0) 38.7 mmHg (35.0-45.0) Arterial Blood Partial Pressure O2 73.7 mmHg (75.0-100.0) L 64.6 mmHg (75.0-100.0) L Arterial Blood HCO3 32.2 mmol/L (22.0-26.0) H 31.0 mmol/L (22.0-26.0) H Arterial Blood Oxygen Saturation 94.9 % (92.0-98.0) 93.9 % (92.0-98.0) Arterial Blood Base Excess 7.7 7.7 Dipak Test Positive Positive White Blood Count 12.2 K/UL (4.8-10.8) H Red Blood Count 4.28 M/UL (4.70-6.10) L Hemoglobin 12.2 G/DL (14.2-18.0) L Hematocrit 36.2 % (42.0-52.0) L Mean Corpuscular Volume 85 FL (80-99) Mean Corpuscular Hemoglobin 28.4 PG (27.0-31.0) Mean Corpuscular Hemoglobin Concent 33.6 G/DL (32.0-36.0) Red Cell Distribution Width 12.3 % (11.6-14.8) Platelet Count 669 K/UL (150-450) H Mean Platelet Volume 5.2 FL (6.5-10.1) L Neutrophils (%) (Auto) 82.2 % (45.0-75.0) H Lymphocytes (%) (Auto) 6.2 % (20.0-45.0) L Monocytes (%) (Auto) 7.4 % (1.0-10.0) Eosinophils (%) (Auto) 2.9 % (0.0-3.0) Basophils (%) (Auto) 1.3 % (0.0-2.0) Prothrombin Time 16.2 SEC (9.30-11.50) H Prothromb Time International Ratio 1.5 (0.9-1.1) H Activated Partial Thromboplast Time 25 SEC (23-33) Sodium Level 132 MMOL/L (136-145) L Potassium Level 3.4 MMOL/L (3.5-5.1) L Chloride Level 97 MMOL/L (98-107) L Carbon Dioxide Level 28 MMOL/L (21-32) Anion Gap 7 mmol/L (5-15) Blood Urea Nitrogen 32 mg/dL (7-18) H Creatinine 1.0 MG/DL (0.55-1.30) Estimat Glomerular Filtration Rate > 60 mL/min (>60) Glucose Level 129 MG/DL (74-106) H Calcium Level 8.2 MG/DL (8.5-10.1) L Phosphorus Level 2.0 MG/DL (2.5-4.9) L Magnesium Level 2.4 MG/DL (1.8-2.4) Total Bilirubin 0.5 MG/DL (0.2-1.0) Aspartate Amino Transf (AST/SGOT) 39 U/L (15-37) H Alanine Aminotransferase (ALT/SGPT) 51 U/L (12-78) Alkaline Phosphatase 133 U/L (46-116) H Total Protein 6.3 G/DL (6.4-8.2) L Albumin 1.5 G/DL (3.4-5.0) L Globulin 4.8 g/dL Albumin/Globulin Ratio 0.3 (1.0-2.7) L Vancomycin Level Trough 11.2 ug/mL (5.0-12.0) EDDIE COLES Oct 23, 2017 09:30
[2017-10-23] MEDS: Metoprolol 25mg tab GT SCH ×2 (09:43→21:19)
[2017-10-23] MEDS ORDERED: Sodium Phosphate 30 MM in NS 275 ML IVPB ONE (10:30)
--- NOTE | 2017-10-23 10:52 | Diagnostic Imaging Report ---
Indication: Line placement Comparison: 10/22/2017 A single view chest radiograph was obtained. Findings: Increasing parenchymal opacification within the right lung demonstrated in association with diminished lung volume elevation of the right hemidiaphragm and deviation of trachea toward the right which indicates component of atelectasis. The left lung is clear. Heart size is grossly stable. Endotracheal tube is in good position. IMPRESSION: There is no line identified. Increasing atelectasis of the right lung. Superimposed pneumonia not excludable. Follow-up recommended
[2017-10-23] MEDS ORDERED: D5 1/2NS 1000ml IV ONE (10:56)
--- NOTE | 2017-10-23 11:00 | Diagnostic Imaging Report ---
Indication: Dyspnea Comparison: 10/22/2017 A single view chest radiograph was obtained. Findings: Improved atelectasis demonstrated on the right. Endotracheal tube remains in good position. There is residual right basal atelectasis versus pneumonia. Heart size is grossly stable. IMPRESSION: Interval reexpansion of the some of the right lung. Residual right basal atelectasis noted. Superimposed pneumonia not excluded
[2017-10-23] MEDS ORDERED: Potassium Chloride 40 MEQ/NS 550ML IVPB ONE ×2 (12:00)
[2017-10-23] MEDS ORDERED: Lidocaine 1% 10mg/ml/Epi 0.005mg/ml 30ml vial INJ ONE (12:37)
--- NOTE | 2017-10-23 13:29 | Infectious Diseases Prog Note ---
Assessment/Plan Assessment/Plan Assessment: Fever Leukocytosis improving Severe Sepsis- SP E.coli UTI w/ bacteremia -REnal US: Limited exam. No definite hydronephrosis. Empty bladder, containing a Cervantes catheter. Bronchitis; SCx : Nl johnnie Suspicion for Flu despite rapid test (+URI symptoms, sick contacts) Acute hypoxic resp failure- intubated (10/20) Cxray :Interval reexpansion of the some of the right lung.ht. -Influenza neg SP Trach 10/23 JULIA, reslved Lactic acidosis, resolved SP EGD 10/18 Path: H Pylori Neg CVA with hemiplegia HTN cataract dysphagia Hx of fall CAD/CT CVA/TIA dementia seizure disorder Plan: - Continue IV Zosyn and IV Vanco d# 3 - 10/21 SP Ceftriaxone 2 g qd d# 11 - 10/17 SP empiric Tamiflu #6/5 -2/5 SP IV Vancomcyin #5, Meropenm #3 -2/3 SP Cefepime #3 -low threshold for contrast CT abd/p if recurrent bacteremia, persistent/ worsening fever/leukocytosis -Monitor CBC/BMP, temperatures; Trend WBC -aspiration precautions - vent Support - tolliver culture ( Bl , ur ,Sp ) Subjective Allergies: Coded Allergies: NO KNOWN ALLERGIES (Unverified Allergy, Unknown, 09/03/15) Subjective febrile , on vent Objective Vital Signs Last 24 Hour Vital Signs Date Time Temp Pulse Resp B/P (MAP) Pulse Ox O2 Delivery O2 Flow Rate FiO2 10/23/17 13:00 112 19 116/82 99 Mechanical Ventilator 70 10/23/17 12:00 70 10/23/17 12:00 97.5 112 19 116/82 100 Mechanical Ventilator 70 10/23/17 11:00 109 18 117/68 99 Mechanical Ventilator 70 10/23/17 10:51 108 20 70 10/23/17 10:00 118 22 131/82 99 Mechanical Ventilator 70 10/23/17 09:43 121 125/78 10/23/17 09:00 121 22 125/78 99 Mechanical Ventilator 70 10/23/17 08:50 112 20 70 10/23/17 08:00 70 10/23/17 08:00 99.3 118 22 127/78 97 Mechanical Ventilator 70 10/23/17 07:23 108 10/23/17 07:00 109 24 112/75 100 Mechanical Ventilator 70 10/23/17 06:33 114 21 70 10/23/17 06:00 117 24 114/72 96 Mechanical Ventilator 70 10/23/17 05:00 107 24 102/57 98 Mechanical Ventilator 70 10/23/17 04:49 117 22 70 10/23/17 04:00 99.7 117 20 107/65 97 Mechanical Ventilator 70 10/23/17 03:51 118 10/23/17 03:01 115 26 70 10/23/17 03:00 114 22 110/67 100 Mechanical Ventilator 75 10/23/17 02:00 99.9 114 21 107/60 98 Mechanical Ventilator 75 10/23/17 01:18 101.3 10/23/17 01:05 114 21 75 10/23/17 01:05 75 10/23/17 01:05 101.3 75 10/23/17 01:00 115 27 96/67 100 Mechanical Ventilator 80 10/23/17 00:19 101.3 10/23/17 00:00 80 10/23/17 00:00 101.3 129 28 114/68 95 Mechanical Ventilator 80 10/22/17 23:53 130 10/22/17 23:20 130 31 80 10/22/17 23:00 127 27 123/87 99 Mechanical Ventilator 80 10/22/17 22:00 129 25 110/68 94 Mechanical Ventilator 80 10/22/17 21:13 125 18 80 10/22/17 21:00 126 26 109/81 100 Mechanical Ventilator 80 10/22/17 20:39 127 121/72 10/22/17 20:00 80 10/22/17 20:00 99.3 129 19 121/72 100 Mechanical Ventilator 80 10/22/17 19:59 115 10/22/17 19:00 80 10/22/17 19:00 127 18 80 10/22/17 19:00 128 25 130/84 100 Mechanical Ventilator 80 10/22/17 18:14 Non-Rebreather 15.0 100 10/22/17 18:00 122 25 101/82 94 Non-Rebreather 15.0 10/22/17 17:25 100 10/22/17 17:02 118 27 100 10/22/17 17:00 113 19 115/66 100 Mechanical Ventilator 80 10/22/17 16:00 80 10/22/17 16:00 115 10/22/17 16:00 98.8 113 23 102/72 100 Mechanical Ventilator 80 10/22/17 15:10 114 25 100 10/22/17 15:00 113 19 115/66 100 Mechanical Ventilator 80 10/22/17 13:40 99.8 10/22/17 13:28 114 22 100 Height (Feet): 5 Height (Inches): 6.00 Weight (Pounds): 199 HEENT: anicteric Respiratory/Chest: crackles/rales Cardiovascular: regularly irregular Abdomen: non distended Microbiology Date/Time Source Procedure Growth Status 10/21/17 08:30 Sputum Gram Stain - Final Complete 10/21/17 08:30 Sputum Sputum Culture - Final NORMAL UPPER RESPIRATORY JOHNNEI PRESENT Complete Laboratory Tests Test 10/22/17 20:10 10/23/17 06:00 10/23/17 08:50 Arterial Blood pH 7.480 (7.350-7.450) 7.522 (7.350-7.450) Arterial Blood Partial Pressure CO2 44.2 mmHg (35.0-45.0) 38.7 mmHg (35.0-45.0) Arterial Blood Partial Pressure O2 73.7 mmHg (75.0-100.0) L 64.6 mmHg (75.0-100.0) L Arterial Blood HCO3 32.2 mmol/L (22.0-26.0) H 31.0 mmol/L (22.0-26.0) H Arterial Blood Oxygen Saturation 94.9 % (92.0-98.0) 93.9 % (92.0-98.0) Arterial Blood Base Excess 7.7 7.7 Dipak Test Positive Positive White Blood Count 12.2 K/UL (4.8-10.8) H Red Blood Count 4.28 M/UL (4.70-6.10) L Hemoglobin 12.2 G/DL (14.2-18.0) L Hematocrit 36.2 % (42.0-52.0) L Mean Corpuscular Volume 85 FL (80-99) Mean Corpuscular Hemoglobin 28.4 PG (27.0-31.0) Mean Corpuscular Hemoglobin Concent 33.6 G/DL (32.0-36.0) Red Cell Distribution Width 12.3 % (11.6-14.8) Platelet Count 669 K/UL (150-450) H Mean Platelet Volume 5.2 FL (6.5-10.1) L Neutrophils (%) (Auto) 82.2 % (45.0-75.0) H Lymphocytes (%) (Auto) 6.2 % (20.0-45.0) L Monocytes (%) (Auto) 7.4 % (1.0-10.0) Eosinophils (%) (Auto) 2.9 % (0.0-3.0) Basophils (%) (Auto) 1.3 % (0.0-2.0) Prothrombin Time 16.2 SEC (9.30-11.50) H Prothromb Time International Ratio 1.5 (0.9-1.1) H Activated Partial Thromboplast Time 25 SEC (23-33) Sodium Level 132 MMOL/L (136-145) L Potassium Level 3.4 MMOL/L (3.5-5.1) L Chloride Level 97 MMOL/L (98-107) L Carbon Dioxide Level 28 MMOL/L (21-32) Anion Gap 7 mmol/L (5-15) Blood Urea Nitrogen 32 mg/dL (7-18) H Creatinine 1.0 MG/DL (0.55-1.30) Estimat Glomerular Filtration Rate > 60 mL/min (>60) Glucose Level 129 MG/DL (74-106) H Calcium Level 8.2 MG/DL (8.5-10.1) L Phosphorus Level 2.0 MG/DL (2.5-4.9) L Magnesium Level 2.4 MG/DL (1.8-2.4) Total Bilirubin 0.5 MG/DL (0.2-1.0) Aspartate Amino Transf (AST/SGOT) 39 U/L (15-37) H Alanine Aminotransferase (ALT/SGPT) 51 U/L (12-78) Alkaline Phosphatase 133 U/L (46-116) H Total Protein 6.3 G/DL (6.4-8.2) L Albumin 1.5 G/DL (3.4-5.0) L Globulin 4.8 g/dL Albumin/Globulin Ratio 0.3 (1.0-2.7) L Vancomycin Level Trough 11.2 ug/mL (5.0-12.0) Current Medications Medications (Trade) Dose Ordered Sig/Olvin Route PRN Reason Start Time Stop Time Status Last Admin Dose Admin Acetaminophen (Tylenol) 650 mg Q4H PRN ORAL Mild Pain/Temp > 100.5 10/21/17 08:15 11/13/17 08:14 10/23/17 00:19 Acetaminophen (Tylenol) 650 mg Q4H PRN RECTAL Mild Pain (Pain Scale 1-3) 10/21/17 12:00 11/20/17 11:59 10/22/17 02:07 Al Hydroxide/Mg Hydroxide (Mylanta II) 30 ml Q6H PRN GT dyspepsia 10/21/17 06:30 11/10/17 12:29 Aspirin (ASA) 81 mg DAILY GT 10/21/17 09:00 11/12/17 08:59 10/22/17 08:04 Atorvastatin Calcium (Lipitor) 10 mg BEDTIME GT 10/21/17 21:00 11/11/17 20:59 10/22/17 20:39 Dextrose/Sodium Chloride 1,000 ml @ 100 mls/hr Q10H IV 10/21/17 05:30 11/19/17 19:59 10/23/17 07:46 Lorazepam (Ativan 2mg/ml 1ml) 0.5 mg Q4H PRN IV For Anxiety 10/21/17 07:15 10/26/17 19:14 Lorazepam (Ativan 2mg/ml 1ml) 2 mg Q1H PRN IV PERSISTENT AGITATION 10/21/17 08:15 10/28/17 08:14 10/22/17 21:33 Metoprolol Tartrate (Lopressor) 25 mg Q12HR GT 10/21/17 09:00 11/13/17 20:59 10/23/17 09:43 Morphine Sulfate (Morphine Sulfate) 4 mg Q2H PRN IVP For Pain 10/21/17 06:00 10/28/17 05:59 Nitroglycerin (Ntg) 0.4 mg Q5MIN X 3 DOSES PRN SL Prn Chest Pain 10/21/17 05:30 11/14/17 16:59 Ondansetron HCl (Zofran) 4 mg Q6H PRN IVP Nausea & Vomiting 10/21/17 06:30 11/10/17 12:29 Piperacillin Sod/ Tazobactam Sod 4.5 gm/Sodium Chloride 110 ml @ 27.5 mls/hr EVERY 8 HOURS IVPB 10/21/17 14:00 10/26/17 13:59 10/23/17 06:01 Polyethylene Glycol (Miralax) 17 gm DAILYPRN PRN GT Constipation 10/21/17 12:30 11/10/17 12:29 10/22/17 20:39 Potassium Chloride 40 meq/ Sodium Chloride 570 ml @ 142.5 mls/ hr ONCE ONCE IVPB 10/23/17 12:00 10/23/17 15:59 10/23/17 12:07 Promethazine HCl/ Codeine (Phenergan with Codeine) 5 ml Q4H PRN GT For Cough 10/21/17 08:15 11/10/17 20:14 Sodium Phosphate 30 mm/Sodium Chloride 285 ml @ 47.5 mls/hr ONCE ONCE IVPB 10/23/17 10:30 10/23/17 16:29 10/23/17 11:01 Valproic Acid (Depakene) 250 mg Q12HR@0630,1830 GT 10/21/17 06:30 11/14/17 18:29 10/22/17 17:50 Vancomycin HCl (Vanco rx to dose) 1 ea DAILY PRN MISC Per rx protocol 10/21/17 13:30 11/20/17 13:29 Vancomycin HCl/ Dextrose 250 ml @ 166.667 mls/hr Q12H IVPB 10/23/17 18:00 10/28/17 23:59 FAUSTINO AGARWAL M.D. Oct 23, 2017 13:29
--- NOTE | 2017-10-23 13:40 | Brief Operative Note ---
Immediate Post Operative Note Operative Note Pre-op Diagnosis: respiratory insufficiency requiring prolonged ventilatory support Procedure: Percutaneous tracheostomy Post-op Diagnosis: same as pre-op Surgeon: joe Anesthesiologist: isaac Anesthesia: general, local Specimen: none Complications: none Condition: stable Fluids: see records Estimated Blood Loss: minimal Drains: none Implant(s) used?: Yes - 8f Darren Don Oct 23, 2017 13:40
--- NOTE | 2017-10-23 14:02 | Anethesia Preoperative Eval ---
Anesthesia Pre-op PMH/ROS General Date of Evaluation: Oct 23, 2017 Time of Evaluation: 12:18 Anesthesiologist: Herbie ASA Score: ASA 4 Mallampati Score Class I : Soft palate, uvula, fauces, pillars visible Class II: Soft palate, uvula, fauces visible Class III: Soft palate, base of uvula visible Class IV: Only hard plate visible Mallampati Classification: Class III Surgeon: Lillian Diagnosis: Respiratory failure Surgical Procedure: Tracheostomy Anesthesia History: none Family History: no anesthesia problems Allergies: Coded Allergies: NO KNOWN ALLERGIES (Unverified Allergy, Unknown, 09/03/15) Medications: see eMAR Past Medical History Cardiovascular: Reports: HTN, CAD Pulmonary: Reports: other - respiratory failure, Denies: asthma, COPD, NASIR Gastrointestinal/Genitourinary: Reports: GERD, other - dysphagia peg tube in place, Denies: CRI, ESRD Neurologic/Psychiatric: Reports: dementia, CVA, Denies: depression/anxiety, TIA, other Endocrine: Denies: DM, hypothyroidism, steroids, other HEENT: Denies: cataract (L), cataract (R), glaucoma, CHEHALIS (L), CHEHALIS (R), other Hematology/Immune: Reports: anemia, Denies: DVT, bleeding disorder, other Musculoskeletal/Integumentary: Reports: DJD, other - muscle contruction PMH Narrative: as above PSxH Narrative: see H&P Anesthesia Pre-op Phys. Exam Physician Exam Last Vital Signs Date Time Temp Pulse Resp B/P (MAP) Pulse Ox O2 Delivery O2 Flow Rate FiO2 10/23/17 13:00 112 19 116/82 99 Mechanical Ventilator 70 10/23/17 12:00 97.5 10/22/17 18:14 15.0 Constitutional: NAD Neurologic: other - unable to obtaine Cardiovascular: RRR Respiratory: other - diffuse whezing and rhales Airway Exam Mallampati Score: Class III MO: limited Neck: stiff ROM: limited Teeth: missing, broken Dentures: no upper, no lower Anesthesia Pre-op A/P Labs Hematology Test 10/23/17 06:00 White Blood Count 12.2 K/UL (4.8-10.8) H Red Blood Count 4.28 M/UL (4.70-6.10) L Hemoglobin 12.2 G/DL (14.2-18.0) L Hematocrit 36.2 % (42.0-52.0) L Mean Corpuscular Volume 85 FL (80-99) Mean Corpuscular Hemoglobin 28.4 PG (27.0-31.0) Mean Corpuscular Hemoglobin Concent 33.6 G/DL (32.0-36.0) Red Cell Distribution Width 12.3 % (11.6-14.8) Platelet Count 669 K/UL (150-450) H Mean Platelet Volume 5.2 FL (6.5-10.1) L Neutrophils (%) (Auto) 82.2 % (45.0-75.0) H Lymphocytes (%) (Auto) 6.2 % (20.0-45.0) L Monocytes (%) (Auto) 7.4 % (1.0-10.0) Eosinophils (%) (Auto) 2.9 % (0.0-3.0) Basophils (%) (Auto) 1.3 % (0.0-2.0) Coagulation Test 10/23/17 06:00 Prothrombin Time 16.2 SEC (9.30-11.50) H Prothromb Time International Ratio 1.5 (0.9-1.1) H Activated Partial Thromboplast Time 25 SEC (23-33) Chemistry Test 10/23/17 06:00 Sodium Level 132 MMOL/L (136-145) L Potassium Level 3.4 MMOL/L (3.5-5.1) L Chloride Level 97 MMOL/L (98-107) L Carbon Dioxide Level 28 MMOL/L (21-32) Anion Gap 7 mmol/L (5-15) Blood Urea Nitrogen 32 mg/dL (7-18) H Creatinine 1.0 MG/DL (0.55-1.30) Estimat Glomerular Filtration Rate > 60 mL/min (>60) Glucose Level 129 MG/DL (74-106) H Calcium Level 8.2 MG/DL (8.5-10.1) L Phosphorus Level 2.0 MG/DL (2.5-4.9) L Magnesium Level 2.4 MG/DL (1.8-2.4) Total Bilirubin 0.5 MG/DL (0.2-1.0) Aspartate Amino Transf (AST/SGOT) 39 U/L (15-37) H Alanine Aminotransferase (ALT/SGPT) 51 U/L (12-78) Alkaline Phosphatase 133 U/L (46-116) H Total Protein 6.3 G/DL (6.4-8.2) L Albumin 1.5 G/DL (3.4-5.0) L Globulin 4.8 g/dL Albumin/Globulin Ratio 0.3 (1.0-2.7) L Risk Assessment & Plan Assessment: asa 4 Plan: GA with ETT Status Change Before Surgery: No Pre-Antibiotics Drug: as scheduled JEM MARIA M.D. Oct 23, 2017 14:02
--- NOTE | 2017-10-23 14:03 | Immediate Post-Op Evaluation ---
Immediate Post-Op Evalulation Immediate Post-Op Evalulation Procedure: Percutaneous tracheostomy Date of Evaluation: Oct 23, 2017 Time of Evaluation: 14:02 IV Fluids: 250 Blood Products: none Estimated Blood Loss: min Urinary Output: none Blood Pressure Systolic: 104 Blood Pressure Diastolic: 56 Pulse Rate: 102 Respiratory Rate: 18 O2 Sat by Pulse Oximetry: 97 Temperature (Fahrenheit): 98.6 Pain Score (1-10): 1 Nausea: No Vomiting: No Complications none Patient Status: no response, ventilated, none Hydration Status: adequate JEM MARIA M.D. Oct 23, 2017 14:03
--- NOTE | 2017-10-23 14:16 | Pre-Procedure Note/Attestation ---
Pre-Procedure Note/Attestation Complete Prior to Procedure Planned Procedure: not applicable Procedure Narrative: tracheostomy Indications for Procedure Pre-Operative Diagnosis: respiratory insufficiency requiring prolonged ventilatory support Attestation I attest that I discussed the nature of the procedure; its benefits; risks and complications; and alternatives (and the risks and benefits of such alternatives ), prior to the procedure, with the patient (or the patient's legal visitor services representative). I attest that, if there was a reasonable possibility of needing a blood transfusion, the patient (or the patient's legal visitor services representative) was given the [facility] [place] [facility] standardized written summary, pursuant to the Keven Saige Blood Safety Act ([place] Health and Safety Code # 1645, as amended). I attest that I re-evaluated the patient just prior to the surgery and that there has been no change in the patient's H&P, except as documented below: Darren Esteban Oct 23, 2017 14:16
--- NOTE | 2017-10-23 15:51 | GI Progress Note ---
Assessment/Plan Problems: (1) Dysphagia ICD Codes: R13.10 - Dysphagia, unspecified SNOMED: 00207122, 963621846 (2) Dementia ICD Codes: F03.90 - Unspecified dementia without behavioral disturbance SNOMED: 23581950 (3) PEG (percutaneous endoscopic gastrostomy) adjustment/replacement/removal ICD Codes: Z43.1 - Encounter for attention to gastrostomy SNOMED: 827645315, 691137567 (4) CVA, old, hemiparesis ICD Codes: I69.359 - Hemiplegia and hemiparesis following cerebral infarction affecting unspecified side SNOMED: 99494796, 05860463, [id number] Status: unchanged Status Narrative Discussed with Dr. Campos. Assessment/Plan Assessment (1) Acute respiratory failure (2) Pneumonia (3) Sepsis (4) Dementia (5) Epileptic seizure, generalized (6) Feeding by G-tube/Dysphagia Recommendations - restart TF - GT care - Vent - trach planning Subjective Subjective limited Objective Last 24 Hour Vital Signs Date Time Temp Pulse Resp B/P (MAP) Pulse Ox O2 Delivery O2 Flow Rate FiO2 10/23/17 14:03 209.5 102 18 97 10/23/17 14:00 116 19 133/81 97 Mechanical Ventilator 70 10/23/17 13:49 117 18 70 10/23/17 13:00 112 19 116/82 99 Mechanical Ventilator 70 10/23/17 12:00 70 10/23/17 12:00 97.5 112 19 116/82 100 Mechanical Ventilator 70 10/23/17 11:00 109 18 117/68 99 Mechanical Ventilator 70 10/23/17 10:51 108 20 70 10/23/17 10:00 118 22 131/82 99 Mechanical Ventilator 70 10/23/17 09:43 121 125/78 10/23/17 09:00 121 22 125/78 99 Mechanical Ventilator 70 10/23/17 08:50 112 20 70 10/23/17 08:00 70 10/23/17 08:00 99.3 118 22 127/78 97 Mechanical Ventilator 70 10/23/17 07:23 108 10/23/17 07:00 109 24 112/75 100 Mechanical Ventilator 70 10/23/17 06:33 114 21 70 10/23/17 06:00 117 24 114/72 96 Mechanical Ventilator 70 10/23/17 05:00 107 24 102/57 98 Mechanical Ventilator 70 10/23/17 04:49 117 22 70 10/23/17 04:00 99.7 117 20 107/65 97 Mechanical Ventilator 70 10/23/17 03:51 118 10/23/17 03:01 115 26 70 10/23/17 03:00 114 22 110/67 100 Mechanical Ventilator 75 10/23/17 02:00 99.9 114 21 107/60 98 Mechanical Ventilator 75 10/23/17 01:18 101.3 10/23/17 01:05 114 21 75 10/23/17 01:05 75 10/23/17 01:05 101.3 75 10/23/17 01:00 115 27 96/67 100 Mechanical Ventilator 80 10/23/17 00:19 101.3 10/23/17 00:00 80 10/23/17 00:00 101.3 129 28 114/68 95 Mechanical Ventilator 80 10/22/17 23:53 130 10/22/17 23:20 130 31 80 10/22/17 23:00 127 27 123/87 99 Mechanical Ventilator 80 10/22/17 22:00 129 25 110/68 94 Mechanical Ventilator 80 10/22/17 21:13 125 18 80 10/22/17 21:00 126 26 109/81 100 Mechanical Ventilator 80 10/22/17 20:39 127 121/72 10/22/17 20:00 80 10/22/17 20:00 99.3 129 19 121/72 100 Mechanical Ventilator 80 10/22/17 19:59 115 10/22/17 19:00 80 10/22/17 19:00 127 18 80 10/22/17 19:00 128 25 130/84 100 Mechanical Ventilator 80 10/22/17 18:14 Non-Rebreather 15.0 100 10/22/17 18:00 122 25 101/82 94 Non-Rebreather 15.0 10/22/17 17:25 100 10/22/17 17:02 118 27 100 10/22/17 17:00 113 19 115/66 100 Mechanical Ventilator 80 10/22/17 16:00 80 10/22/17 16:00 115 10/22/17 16:00 98.8 113 23 102/72 100 Mechanical Ventilator 80 Intake and Output 10/22/17 10/23/17 19:00 07:00 Intake Total 1433.75 ml 1762.5 ml Output Total 560 ml 620 ml Balance 873.75 ml 1142.5 ml IV Total 1433.75 ml 1612.5 ml Other 150 ml Output Urine Total 560 ml 620 ml Laboratory Tests Test 10/22/17 20:10 10/23/17 06:00 10/23/17 08:50 Arterial Blood pH 7.480 (7.350-7.450) 7.522 (7.350-7.450) Arterial Blood Partial Pressure CO2 44.2 mmHg (35.0-45.0) 38.7 mmHg (35.0-45.0) Arterial Blood Partial Pressure O2 73.7 mmHg (75.0-100.0) L 64.6 mmHg (75.0-100.0) L Arterial Blood HCO3 32.2 mmol/L (22.0-26.0) H 31.0 mmol/L (22.0-26.0) H Arterial Blood Oxygen Saturation 94.9 % (92.0-98.0) 93.9 % (92.0-98.0) Arterial Blood Base Excess 7.7 7.7 Dipak Test Positive Positive White Blood Count 12.2 K/UL (4.8-10.8) H Red Blood Count 4.28 M/UL (4.70-6.10) L Hemoglobin 12.2 G/DL (14.2-18.0) L Hematocrit 36.2 % (42.0-52.0) L Mean Corpuscular Volume 85 FL (80-99) Mean Corpuscular Hemoglobin 28.4 PG (27.0-31.0) Mean Corpuscular Hemoglobin Concent 33.6 G/DL (32.0-36.0) Red Cell Distribution Width 12.3 % (11.6-14.8) Platelet Count 669 K/UL (150-450) H Mean Platelet Volume 5.2 FL (6.5-10.1) L Neutrophils (%) (Auto) 82.2 % (45.0-75.0) H Lymphocytes (%) (Auto) 6.2 % (20.0-45.0) L Monocytes (%) (Auto) 7.4 % (1.0-10.0) Eosinophils (%) (Auto) 2.9 % (0.0-3.0) Basophils (%) (Auto) 1.3 % (0.0-2.0) Prothrombin Time 16.2 SEC (9.30-11.50) H Prothromb Time International Ratio 1.5 (0.9-1.1) H Activated Partial Thromboplast Time 25 SEC (23-33) Sodium Level 132 MMOL/L (136-145) L Potassium Level 3.4 MMOL/L (3.5-5.1) L Chloride Level 97 MMOL/L (98-107) L Carbon Dioxide Level 28 MMOL/L (21-32) Anion Gap 7 mmol/L (5-15) Blood Urea Nitrogen 32 mg/dL (7-18) H Creatinine 1.0 MG/DL (0.55-1.30) Estimat Glomerular Filtration Rate > 60 mL/min (>60) Glucose Level 129 MG/DL (74-106) H Calcium Level 8.2 MG/DL (8.5-10.1) L Phosphorus Level 2.0 MG/DL (2.5-4.9) L Magnesium Level 2.4 MG/DL (1.8-2.4) Total Bilirubin 0.5 MG/DL (0.2-1.0) Aspartate Amino Transf (AST/SGOT) 39 U/L (15-37) H Alanine Aminotransferase (ALT/SGPT) 51 U/L (12-78) Alkaline Phosphatase 133 U/L (46-116) H Total Protein 6.3 G/DL (6.4-8.2) L Albumin 1.5 G/DL (3.4-5.0) L Globulin 4.8 g/dL Albumin/Globulin Ratio 0.3 (1.0-2.7) L Vancomycin Level Trough 11.2 ug/mL (5.0-12.0) Height (Feet): 5 Height (Inches): 6.00 Weight (Pounds): 199 General Appearance: no apparent distress, thin Cardiovascular: normal rate Respiratory/Chest: no respiratory distress, other - mech vent Abdominal Exam: normal bowel sounds, non tender, soft, GT site - c/d/i Extremities: non-tender Laura Lucas N.Kimmie Oct 23, 2017 15:50
[2017-10-23] MEDS: Vancomycin 1250mg/D5W 250ml IVPB SCH (18:10)
--- NOTE | 2017-10-23 21:00 | Operative Note - Dictated ---
DATE OF OPERATION: 10/23/2017 PREOPERATIVE DIAGNOSIS: Respiratory insufficiency, requiring prolonged ventilatory support. POSTOPERATIVE DIAGNOSIS: Respiratory insufficiency, requiring prolonged ventilatory support. OPERATION PERFORMED: Percutaneous tracheostomy. ATTENDING SURGEON: Darren Esteban M.D. CHILD CARE CENTRE MANAGER: None. ANESTHESIOLOGIST: Zaid Stoner M.D. 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 ESTIMATED BLOOD LOSS: Minimal. IV FLUIDS: Please see anesthesia records. WOUND CLASSIFICATION: Class I. COMPLICATIONS: None. DRAINS: None. IMPLANTS: An 8-Qatari Shiley tracheostomy tube inserted. ANTIBIOTICS: The patient was on scheduled IV antibiotics. INDICATIONS FOR PROCEDURE: This is a 61-year-old male, who was a prison resident and was found to have weakness, altered status, and poor oxygenation. He was admitted for care and management at which time he required intubation for respiratory insufficiency and also required positive pressure support. The patient has recently self-extubated and unfortunately was unable to remain extubated. In monitoring his progress, he has required endotracheal intubation for sometime now and given his course and prognosis will require ventilatory support with positive pressure for a prolonged period of time at which time, surgery was called for evaluation of tracheostomy. The patient was seen. Chart was reviewed. Exam was performed and in discussing with the medical team, recommendation for tracheostomy was made. Risks, benefits, and alternatives were discussed with the patient's family members given his current medical condition and inability to consent for himself. After doing so, having long conversation with them, they decided to proceed with tracheostomy which was performed today. OPERATIVE NOTE: The patient was taken to the operating room and made comfortable in the hospital bed. Preoperative time-out was taken identifying the patient, procedure, operative staff, and surgical staff. Prior to entering the operating room, the patient already had Cervantes catheter, SCDs, and all bony prominences well padded. The patient had endotracheal tube prior as well. At this time, the Blue Rhino percutaneous drain was opened and a shoulder roll was placed. The neck was prepped and draped in standard surgical fashion. An incision was made approximately 2 fingerbreadths above the sternal notch. The trachea was palpated and a tunnel was made using blunt dissection. Through the skin incision, the trachea was palpated. With the support of anesthesiologist which had a bronchoscope down the ET tube, the ET tube was slowly withdrawn to a point that the area of palpation from incision could be identified. A finder needle and sheath was then inserted and seen under direct visualization entering into the trachea using the bronchoscope. Following this, the sheath was advanced and the finder needle was removed. The sheath was advanced identifying it going towards the gabe. A guidewire was then placed through the sheath and sheath removed. A long guidewire was left in place. Following this, the Blue Rhino was inserted and a small dilatation of the trachea was made over the guidewire. This was all visualized under direct visualization without complication. Following this, the Blue Rhino dilator was then appropriately positioned and used over sheath and wire to slowly dilate the tract to approximately allow an 8-Qatari Shiley tracheostomy tube. Following completion of this, the 8-Qatari tracheostomy tube with a dilator was inserted over the wire and sheath and inserted under direct visualization without complication. At this time, the ET tube was removed. Tracheal balloon was insufflated. Wire and dilator sheath were all removed and the patient was ventilated through tracheostomy without complication. Good airway pressures and volumes with end-expiratory CO2 were identified. At this time, everything was evaluated and noted to be satisfactory. Given the patient's recent self-extubation and history of pulling tube, decision was made to suture in the tracheostomy in two points using a 2-0 Prolene suture. At this time, dressings were applied, the wound was cleansed, and the procedure was concluded. The patient tolerated the procedure well and was taken to the ICU in stable condition. Darren Esteban M.D. DR: Gavin JOB#: [id number] CC: NOLA
[2017-10-24] VITALS (17 sets, daily range): BP systolic 112–134; BP diastolic 56–93
[2017-10-24] MEDS: D5 1/2NS 1,000 ML IV SCH ×4 (04:24→20:48)
[2017-10-24] MEDS: Piperacillin/Tazobactam 4.5 GM in NS 110 ML IVPB SCH ×2 (06:22→15:29)
[2017-10-24] MEDS: Vancomycin 1250mg/D5W 250ml IVPB SCH (06:22)
[2017-10-24 06:57] LABS: HEMATOCRIT 35.6 % (42.0-52.0); HEMOGLOBIN 11.9 G/DL (14.2-18.0); LYMPHOCYTES % (AUTO) 4.7 % (20.0-45.0); MEAN CORPUSCULAR VOLUME 85 FL (80-99); MONOCYTES % (AUTO) 7.8 % (1.0-10.0); NEUTROPHILS % (AUTO) 84.5 % (45.0-75.0); PLATELET COUNT 678 K/UL (150-450); RED CELL DISTRIBUTION WIDTH 12.6 % (11.6-14.8); WHITE BLOOD COUNT 16.3 K/UL (4.8-10.8)
[2017-10-24 07:11] LABS: CHLORIDE 98 MMOL/L (98-107); POTASSIUM 3.1 MMOL/L (3.5-5.1); SODIUM 134 MMOL/L (136-145)
[2017-10-24 07:12] LABS: ALANINE AMINOTRANSFERASE 56 U/L (12-78); ALBUMIN 1.5 G/DL (3.4-5.0); ALBUMIN/GLOBULIN RATIO 0.3 (1.0-2.7); ALKALINE PHOSPHATASE 157 U/L (46-116); ANION GAP 7 mmol/L (5-15); ASPARTATE AMINO TRANSFERASE 35 U/L (15-37); BILIRUBIN,TOTAL 0.4 MG/DL (0.2-1.0); BLOOD UREA NITROGEN 18 mg/dL (7-18); CALCIUM 7.9 MG/DL (8.5-10.1); CARBON DIOXIDE 30 MMOL/L (21-32); CREATININE 0.9 MG/DL (0.55-1.30); PHOSPHORUS 1.8 MG/DL (2.5-4.9)
[2017-10-24] MEDS: Valproic Acid 250mg/5ml Liquid GT SCH ×2 (07:14→17:58)
[2017-10-24] MEDS ORDERED: Heparin 2000 units/Ns 1000ml INJ ONE (09:00)
[2017-10-24] MEDS ORDERED: Lidocaine 1% Plain 30 ml INJ ONE (09:00)
[2017-10-24] MEDS: Aspirin Baby 81mg GT SCH (09:11)
[2017-10-24] MEDS: Metoprolol 25mg tab GT SCH ×2 (09:12→20:49)
--- NOTE | 2017-10-24 10:29 | Pulmonolgy Critical Care Note ---
Critical Care - Asmt/Plan Problems: (1) Acute respiratory failure (2) Pneumonia (3) Sepsis (4) Dementia (5) Epileptic seizure, generalized (6) Feeding by G-tube Respiratory: monitor respiratory rate, adjust FIO2, CXR Cardiac: continue to monitor HR/BP Renal: F/U I&O Infectious Disease: check cultures Gastrointestinal: hold feedings Endocrine: monitor blood sugar, check TSH, check HgA1C, continue sliding scale insulin Hematologic: monitor H/H Neurologic: PRN Morphine, keep patient comfortable Notes Reviewed: cardio Discussed with: nurses, consultants, nurse case managerheavy equipment service manager - Objective Last 24 Hour Vital Signs Date Time Temp Pulse Resp B/P (MAP) Pulse Ox O2 Delivery O2 Flow Rate FiO2 10/24/17 09:32 117 26 50 10/24/17 09:12 117 124/83 10/24/17 09:00 115 27 124/83 99 Mechanical Ventilator 50 10/24/17 08:06 50 10/24/17 08:00 50 10/24/17 08:00 120 25 124/83 91 Mechanical Ventilator 70 10/24/17 08:00 119 10/24/17 07:05 117 27 70 10/24/17 07:00 99.2 117 22 134/88 87 Mechanical Ventilator 70 10/24/17 06:00 115 17 118/93 98 Mechanical Ventilator 70 10/24/17 05:09 109 27 70 10/24/17 05:00 122 27 127/90 98 Mechanical Ventilator 70 10/24/17 04:00 99.6 115 22 122/82 100 Mechanical Ventilator 70 10/24/17 04:00 115 10/24/17 04:00 70 10/24/17 03:28 115 29 70 10/24/17 03:00 113 21 115/85 100 Mechanical Ventilator 70 10/24/17 02:00 110 19 112/81 100 Mechanical Ventilator 70 10/24/17 01:28 124 28 70 10/24/17 01:00 105 20 116/75 100 Mechanical Ventilator 70 10/24/17 00:08 70 10/24/17 00:08 112 10/24/17 00:05 98.5 112 22 125/88 100 Mechanical Ventilator 70 10/23/17 23:24 110 21 70 10/23/17 23:00 108 23 126/84 100 Mechanical Ventilator 70 10/23/17 22:00 111 19 131/78 100 Mechanical Ventilator 70 10/23/17 21:19 111 112/80 10/23/17 21:18 110 32 70 10/23/17 21:00 112 19 112/80 100 Mechanical Ventilator 70 10/23/17 20:00 70 10/23/17 20:00 98.8 116 23 126/84 100 Mechanical Ventilator 70 10/23/17 20:00 116 10/23/17 19:24 118 30 70 10/23/17 19:00 118 20 141/80 99 Mechanical Ventilator 70 10/23/17 18:00 115 20 129/86 98 Mechanical Ventilator 70 10/23/17 17:00 112 20 122/95 96 Mechanical Ventilator 70 10/23/17 16:55 114 31 70 10/23/17 16:00 99.0 113 21 133/73 97 Mechanical Ventilator 70 10/23/17 15:47 110 10/23/17 15:00 112 22 123/73 96 Mechanical Ventilator 70 10/23/17 14:35 118 18 70 10/23/17 14:03 209.5 102 18 97 10/23/17 14:00 116 19 133/81 97 Mechanical Ventilator 70 10/23/17 14:00 70 10/23/17 13:49 117 18 70 10/23/17 13:00 112 19 116/82 99 Mechanical Ventilator 70 10/23/17 12:12 110 10/23/17 12:00 70 10/23/17 12:00 97.5 112 19 116/82 100 Mechanical Ventilator 70 10/23/17 11:00 109 18 117/68 99 Mechanical Ventilator 70 10/23/17 10:51 108 20 70 Status: awake Condition: critical HEENT: atraumatic Neck: full ROM Lungs: clear, chest wall tender Heart: HR/BP stable, regular Abdomen: soft, non-tender, feeding tube Extremities: no C/C/E Decubiti: location Micro: Microbiology Date/Time Source Procedure Growth Status 10/23/17 15:00 Sputum Gram Stain Pending Resulted 10/23/17 15:00 Sputum Sputum Culture - Preliminary NO GROWTH Resulted 10/23/17 15:00 Urine,Clean Catch Urine Culture - Preliminary NO GROWTH Resulted Critical Care - Subjective ROS Limited/Unobtainable: No ICU Day: 4 Condition: critical EKG Rhythm: Sinus Rhythm FI02: 50 Vent Support Breath Rate: 18 Vent Support Mode: AC Vent Tidal Volume: 550 Sputum Amount: Large PEEP: 10.0 PIP: 18 Fluids: small Tube Feeding Amount: 20 I&O: Intake and Output 10/23/17 10/24/17 19:00 07:00 Intake Total 1964.167 ml 840.0 ml Output Total 110 ml 460 ml Balance 1854.167 ml 380.0 ml IV Total 1914.167 ml 810.0 ml Other 50 ml 30 ml Output Urine Total 110 ml 460 ml # Bowel Movements 1 4 CXR: no changes ET-Tube: 8.0 ET Position: 24 Labs: Laboratory Tests Test 10/24/17 04:00 10/24/17 05:30 Arterial Blood pH 7.530 (7.350-7.450) Arterial Blood Partial Pressure CO2 37.9 mmHg (35.0-45.0) Arterial Blood Partial Pressure O2 104.1 mmHg (75.0-100.0) H Arterial Blood HCO3 31.0 mmol/L (22.0-26.0) H Arterial Blood Oxygen Saturation 98.0 % (92.0-98.0) Arterial Blood Base Excess 7.8 Dipak Test Positive White Blood Count 16.3 K/UL (4.8-10.8) H Red Blood Count 4.20 M/UL (4.70-6.10) L Hemoglobin 11.9 G/DL (14.2-18.0) L Hematocrit 35.6 % (42.0-52.0) L Mean Corpuscular Volume 85 FL (80-99) Mean Corpuscular Hemoglobin 28.4 PG (27.0-31.0) Mean Corpuscular Hemoglobin Concent 33.5 G/DL (32.0-36.0) Red Cell Distribution Width 12.6 % (11.6-14.8) Platelet Count 678 K/UL (150-450) H Mean Platelet Volume 5.2 FL (6.5-10.1) L Neutrophils (%) (Auto) 84.5 % (45.0-75.0) H Lymphocytes (%) (Auto) 4.7 % (20.0-45.0) L Monocytes (%) (Auto) 7.8 % (1.0-10.0) Eosinophils (%) (Auto) 2.0 % (0.0-3.0) Basophils (%) (Auto) 1.0 % (0.0-2.0) Sodium Level 134 MMOL/L (136-145) L Potassium Level 3.1 MMOL/L (3.5-5.1) L Chloride Level 98 MMOL/L (98-107) Carbon Dioxide Level 30 MMOL/L (21-32) Anion Gap 7 mmol/L (5-15) Blood Urea Nitrogen 18 mg/dL (7-18) Creatinine 0.9 MG/DL (0.55-1.30) Estimat Glomerular Filtration Rate > 60 mL/min (>60) Glucose Level 136 MG/DL (74-106) H Calcium Level 7.9 MG/DL (8.5-10.1) L Phosphorus Level 1.8 MG/DL (2.5-4.9) L Magnesium Level 2.3 MG/DL (1.5-2.4) Total Bilirubin 0.4 MG/DL (0.2-1.0) Aspartate Amino Transf (AST/SGOT) 35 U/L (15-37) Alanine Aminotransferase (ALT/SGPT) 56 U/L (12-78) Alkaline Phosphatase 157 U/L (46-116) H Total Protein 6.5 G/DL (6.4-8.2) Albumin 1.5 G/DL (3.4-5.0) L Globulin 5.0 g/dL Albumin/Globulin Ratio 0.3 (1.0-2.7) L EDDIE COLES Oct 24, 2017 10:29
[2017-10-24] MEDS ORDERED: Potassium Phosphate 30 MM in Sodium Chloride 500ML 550 ML IV ONE ×2 (11:00→11:30)
--- NOTE | 2017-10-24 11:42 | Diagnostic Imaging Report ---
Indication: Dyspnea Comparison: 10/23/2018 A single view chest radiograph was obtained. Findings: Tracheostomy noted. This appears to be in good position. There is no pneumothorax identified. Atelectasis again noted in the right lung base and perihilar region which may be slightly worse. Superimposed pneumonia may be present. Lung volumes remain low. Please correlate clinically. IMPRESSION: No significant change compared to the previous day
--- NOTE | 2017-10-24 12:18 | Diagnostic Imaging Report ---
Indication: Abdominal pain Comparison: None Single view of the abdomen obtained Findings: Some distended small bowel demonstrated within the abdomen at this time. There is also moderate retention of feces within a distended rectum. Contrast images noted on the left side of abdomen. Basilar atelectasis on the right noted. IMPRESSION: Distended small bowel. Ileus versus obstruction. Rectal fecal impaction.
--- NOTE | 2017-10-24 12:45 | GI Progress Note ---
Assessment/Plan Problems: (1) Dysphagia ICD Codes: R13.10 - Dysphagia, unspecified SNOMED: 63376843, 434013298 (2) Dementia ICD Codes: F03.90 - Unspecified dementia without behavioral disturbance SNOMED: 30237608 (3) PEG (percutaneous endoscopic gastrostomy) adjustment/replacement/removal ICD Codes: Z43.1 - Encounter for attention to gastrostomy SNOMED: 053882786, 889728937 (4) CVA, old, hemiparesis ICD Codes: I69.359 - Hemiplegia and hemiparesis following cerebral infarction affecting unspecified side SNOMED: 76478493, 12709005, [id number] Status: unchanged Status Narrative Discussed with Dr. Campos. Assessment/Plan s/p PEG KUB reviewed >> Distended small bowel. Ileus versus obstruction. Rectal fecal impaction. 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 imaging prn fu labs Subjective Subjective limited Objective Last 24 Hour Vital Signs Date Time Temp Pulse Resp B/P (MAP) Pulse Ox O2 Delivery O2 Flow Rate FiO2 10/24/17 11:00 113 17 119/74 96 Mechanical Ventilator 50 10/24/17 10:36 109 26 50 10/24/17 10:00 95 22 115/56 99 Mechanical Ventilator 50 10/24/17 09:32 117 26 50 10/24/17 09:12 117 124/83 10/24/17 09:00 115 27 124/83 99 Mechanical Ventilator 50 10/24/17 08:06 50 10/24/17 08:00 50 10/24/17 08:00 120 25 124/83 91 Mechanical Ventilator 70 10/24/17 08:00 119 10/24/17 07:05 117 27 70 10/24/17 07:00 99.2 117 22 134/88 87 Mechanical Ventilator 70 10/24/17 06:00 115 17 118/93 98 Mechanical Ventilator 70 10/24/17 05:09 109 27 70 10/24/17 05:00 122 27 127/90 98 Mechanical Ventilator 70 10/24/17 04:00 99.6 115 22 122/82 100 Mechanical Ventilator 70 10/24/17 04:00 115 10/24/17 04:00 70 10/24/17 03:28 115 29 70 10/24/17 03:00 113 21 115/85 100 Mechanical Ventilator 70 10/24/17 02:00 110 19 112/81 100 Mechanical Ventilator 70 10/24/17 01:28 124 28 70 10/24/17 01:00 105 20 116/75 100 Mechanical Ventilator 70 10/24/17 00:08 70 10/24/17 00:08 112 10/24/17 00:05 98.5 112 22 125/88 100 Mechanical Ventilator 70 10/23/17 23:24 110 21 70 10/23/17 23:00 108 23 126/84 100 Mechanical Ventilator 70 10/23/17 22:00 111 19 131/78 100 Mechanical Ventilator 70 10/23/17 21:19 111 112/80 10/23/17 21:18 110 32 70 10/23/17 21:00 112 19 112/80 100 Mechanical Ventilator 70 10/23/17 20:00 70 10/23/17 20:00 98.8 116 23 126/84 100 Mechanical Ventilator 70 10/23/17 20:00 116 10/23/17 19:24 118 30 70 10/23/17 19:00 118 20 141/80 99 Mechanical Ventilator 70 10/23/17 18:00 115 20 129/86 98 Mechanical Ventilator 70 10/23/17 17:00 112 20 122/95 96 Mechanical Ventilator 70 10/23/17 16:55 114 31 70 10/23/17 16:00 99.0 113 21 133/73 97 Mechanical Ventilator 70 10/23/17 15:47 110 10/23/17 15:00 112 22 123/73 96 Mechanical Ventilator 70 10/23/17 14:35 118 18 70 10/23/17 14:03 209.5 102 18 97 10/23/17 14:00 116 19 133/81 97 Mechanical Ventilator 70 10/23/17 14:00 70 10/23/17 13:49 117 18 70 10/23/17 13:00 112 19 116/82 99 Mechanical Ventilator 70 Intake and Output 10/23/17 10/24/17 19:00 07:00 Intake Total 1964.167 ml 840.0 ml Output Total 110 ml 460 ml Balance 1854.167 ml 380.0 ml IV Total 1914.167 ml 810.0 ml Other 50 ml 30 ml Output Urine Total 110 ml 460 ml # Bowel Movements 1 4 Laboratory Tests Test 10/24/17 04:00 10/24/17 05:30 Arterial Blood pH 7.530 (7.350-7.450) Arterial Blood Partial Pressure CO2 37.9 mmHg (35.0-45.0) Arterial Blood Partial Pressure O2 104.1 mmHg (75.0-100.0) H Arterial Blood HCO3 31.0 mmol/L (22.0-26.0) H Arterial Blood Oxygen Saturation 98.0 % (92.0-98.0) Arterial Blood Base Excess 7.8 Dipak Test Positive White Blood Count 16.3 K/UL (4.8-10.8) H Red Blood Count 4.20 M/UL (4.70-6.10) L Hemoglobin 11.9 G/DL (14.2-18.0) L Hematocrit 35.6 % (42.0-52.0) L Mean Corpuscular Volume 85 FL (80-99) Mean Corpuscular Hemoglobin 28.4 PG (27.0-31.0) Mean Corpuscular Hemoglobin Concent 33.5 G/DL (32.0-36.0) Red Cell Distribution Width 12.6 % (11.6-14.8) Platelet Count 678 K/UL (150-450) H Mean Platelet Volume 5.2 FL (6.5-10.1) L Neutrophils (%) (Auto) 84.5 % (45.0-75.0) H Lymphocytes (%) (Auto) 4.7 % (20.0-45.0) L Monocytes (%) (Auto) 7.8 % (1.0-10.0) Eosinophils (%) (Auto) 2.0 % (0.0-3.0) Basophils (%) (Auto) 1.0 % (0.0-2.0) Sodium Level 134 MMOL/L (136-145) L Potassium Level 3.1 MMOL/L (3.5-5.1) L Chloride Level 98 MMOL/L (98-107) Carbon Dioxide Level 30 MMOL/L (21-32) Anion Gap 7 mmol/L (5-15) Blood Urea Nitrogen 18 mg/dL (7-18) Creatinine 0.9 MG/DL (0.55-1.30) Estimat Glomerular Filtration Rate > 60 mL/min (>60) Glucose Level 136 MG/DL (74-106) H Calcium Level 7.9 MG/DL (8.5-10.1) L Phosphorus Level 1.8 MG/DL (2.5-4.9) L Magnesium Level 2.3 MG/DL (1.5-2.4) Total Bilirubin 0.4 MG/DL (0.2-1.0) Aspartate Amino Transf (AST/SGOT) 35 U/L (15-37) Alanine Aminotransferase (ALT/SGPT) 56 U/L (12-78) Alkaline Phosphatase 157 U/L (46-116) H Total Protein 6.5 G/DL (6.4-8.2) Albumin 1.5 G/DL (3.4-5.0) L Globulin 5.0 g/dL Albumin/Globulin Ratio 0.3 (1.0-2.7) L Microbiology Date/Time Source Procedure Growth Status 10/23/17 15:00 Sputum Gram Stain Pending Resulted 10/23/17 15:00 Sputum Sputum Culture - Preliminary NO GROWTH Resulted 10/23/17 15:00 Urine,Clean Catch Urine Culture - Preliminary NO GROWTH Resulted Height (Feet): 5 Height (Inches): 6.00 Weight (Pounds): 206 General Appearance: no apparent distress Cardiovascular: normal rate Respiratory/Chest: normal breath sounds, no respiratory distress Abdominal Exam: distended, GT site - c/d/i Laura Lucas N.P. Oct 24, 2017 12:45
--- NOTE | 2017-10-24 12:48 | Infectious Diseases Prog Note ---
Assessment/Plan Assessment/Plan Assessment: Fever improving Leukocytosis improving but worsen post op Severe Sepsis- SP E.coli UTI w/ bacteremia -REnal US: Limited exam. No definite hydronephrosis. Empty bladder, containing a Cervantes catheter. Bronchitis; SCx : Nl johnnie Suspicion for Flu despite rapid test (+URI symptoms, sick contacts) Acute hypoxic resp failure- intubated (10/20) Cxray :Interval reexpansion of the some of the right lung.ht. -Influenza neg 12/18 KUB : Distended small bowel. Ileus versus obstruction. SP Trach 10/23 JULIA, reslved Lactic acidosis, resolved SP EGD 10/18 Path: H Pylori Neg CVA with hemiplegia HTN cataract dysphagia Hx of fall CAD/LA CVA/TIA dementia seizure disorder Plan: - Continue IV Zosyn and IV Vanco d# 4 - 10/21 SP Ceftriaxone 2 g qd d# 11 - 10/17 SP empiric Tamiflu #6/5 -/5 SP IV Vancomcyin #5, Meropenm #3 -2/3 SP Cefepime #3 - will order contrast CT abd/p if worsening of fever or leukocytosis -Monitor CBC/BMP, temperatures; Trend WBC -aspiration precautions - vent Support - tolliver culture ( Bl , ur ,Sp ) Subjective Allergies: Coded Allergies: NO KNOWN ALLERGIES (Unverified Allergy, Unknown, 09/03/15) Subjective sp TRACH ON vent Objective Vital Signs Last 24 Hour Vital Signs Date Time Temp Pulse Resp B/P (MAP) Pulse Ox O2 Delivery O2 Flow Rate FiO2 10/24/17 11:00 113 17 119/74 96 Mechanical Ventilator 50 10/24/17 10:36 109 26 50 10/24/17 10:00 95 22 115/56 99 Mechanical Ventilator 50 10/24/17 09:32 117 26 50 10/24/17 09:12 117 124/83 10/24/17 09:00 115 27 124/83 99 Mechanical Ventilator 50 10/24/17 08:06 50 10/24/17 08:00 50 10/24/17 08:00 120 25 124/83 91 Mechanical Ventilator 70 10/24/17 08:00 119 10/24/17 07:05 117 27 70 10/24/17 07:00 99.2 117 22 134/88 87 Mechanical Ventilator 70 10/24/17 06:00 115 17 118/93 98 Mechanical Ventilator 70 10/24/17 05:09 109 27 70 10/24/17 05:00 122 27 127/90 98 Mechanical Ventilator 70 10/24/17 04:00 99.6 115 22 122/82 100 Mechanical Ventilator 70 10/24/17 04:00 115 18 04:00 70 10/24/17 03:28 115 29 70 10/24/17 03:00 113 21 115/85 100 Mechanical Ventilator 70 10/24/17 02:00 110 19 112/81 100 Mechanical Ventilator 70 10/24/17 01:28 124 28 70 10/24/17 01:00 105 20 116/75 100 Mechanical Ventilator 70 10/24/17 00:08 70 10/24/17 00:08 112 10/24/17 00:05 98.5 112 22 125/88 100 Mechanical Ventilator 70 10/23/17 23:24 110 21 70 10/23/17 23:00 108 23 126/84 100 Mechanical Ventilator 70 10/23/17 22:00 111 19 131/78 100 Mechanical Ventilator 70 10/23/17 21:19 111 112/80 10/23/17 21:18 110 32 70 10/23/17 21:00 112 19 112/80 100 Mechanical Ventilator 70 10/23/17 20:00 70 10/23/17 20:00 98.8 116 23 126/84 100 Mechanical Ventilator 70 10/23/17 20:00 116 10/23/17 19:24 118 30 70 10/23/17 19:00 118 20 141/80 99 Mechanical Ventilator 70 10/23/17 18:00 115 20 129/86 98 Mechanical Ventilator 70 10/23/17 17:00 112 20 122/95 96 Mechanical Ventilator 70 10/23/17 16:55 114 31 70 10/23/17 16:00 99.0 113 21 133/73 97 Mechanical Ventilator 70 10/23/17 15:47 110 10/23/17 15:00 112 22 123/73 96 Mechanical Ventilator 70 10/23/17 14:35 118 18 70 10/23/17 14:03 209.5 102 18 97 10/23/17 14:00 116 19 133/81 97 Mechanical Ventilator 70 10/23/17 14:00 70 10/23/17 13:49 117 18 70 10/23/17 13:00 112 19 116/82 99 Mechanical Ventilator 70 Height (Feet): 5 Height (Inches): 6.00 Weight (Pounds): 206 HEENT: atraumatic Respiratory/Chest: no respiratory distress Cardiovascular: no JVD Abdomen: non distended Microbiology Date/Time Source Procedure Growth Status 10/23/17 15:00 Sputum Gram Stain Pending Resulted 10/23/17 15:00 Sputum Sputum Culture - Preliminary NO GROWTH Resulted 10/23/17 15:00 Urine,Clean Catch Urine Culture - Preliminary NO GROWTH Resulted Laboratory Tests Test 10/24/17 04:00 10/24/17 05:30 Arterial Blood pH 7.530 (7.350-7.450) Arterial Blood Partial Pressure CO2 37.9 mmHg (35.0-45.0) Arterial Blood Partial Pressure O2 104.1 mmHg (75.0-100.0) H Arterial Blood HCO3 31.0 mmol/L (22.0-26.0) H Arterial Blood Oxygen Saturation 98.0 % (92.0-98.0) Arterial Blood Base Excess 7.8 Dipak Test Positive White Blood Count 16.3 K/UL (4.8-10.8) H Red Blood Count 4.20 M/UL (4.70-6.10) L Hemoglobin 11.9 G/DL (14.2-18.0) L Hematocrit 35.6 % (42.0-52.0) L Mean Corpuscular Volume 85 FL (80-99) Mean Corpuscular Hemoglobin 28.4 PG (27.0-31.0) Mean Corpuscular Hemoglobin Concent 33.5 G/DL (32.0-36.0) Red Cell Distribution Width 12.6 % (11.6-14.8) Platelet Count 678 K/UL (150-450) H Mean Platelet Volume 5.2 FL (6.5-10.1) L Neutrophils (%) (Auto) 84.5 % (45.0-75.0) H Lymphocytes (%) (Auto) 4.7 % (20.0-45.0) L Monocytes (%) (Auto) 7.8 % (1.0-10.0) Eosinophils (%) (Auto) 2.0 % (0.0-3.0) Basophils (%) (Auto) 1.0 % (0.0-2.0) Sodium Level 134 MMOL/L (136-145) L Potassium Level 3.1 MMOL/L (3.5-5.1) L Chloride Level 98 MMOL/L (98-107) Carbon Dioxide Level 30 MMOL/L (21-32) Anion Gap 7 mmol/L (5-15) Blood Urea Nitrogen 18 mg/dL (7-18) Creatinine 0.9 MG/DL (0.55-1.30) Estimat Glomerular Filtration Rate > 60 mL/min (>60) Glucose Level 136 MG/DL (74-106) H Calcium Level 7.9 MG/DL (8.5-10.1) L Phosphorus Level 1.8 MG/DL (2.5-4.9) L Magnesium Level 2.3 MG/DL (1.5-2.4) Total Bilirubin 0.4 MG/DL (0.2-1.0) Aspartate Amino Transf (AST/SGOT) 35 U/L (15-37) Alanine Aminotransferase (ALT/SGPT) 56 U/L (12-78) Alkaline Phosphatase 157 U/L (46-116) H Total Protein 6.5 G/DL (6.4-8.2) Albumin 1.5 G/DL (3.4-5.0) L Globulin 5.0 g/dL Albumin/Globulin Ratio 0.3 (1.0-2.7) L Current Medications Medications (Trade) Dose Ordered Sig/Olvin Route PRN Reason Start Time Stop Time Status Last Admin Dose Admin Acetaminophen (Tylenol) 650 mg Q4H PRN ORAL Mild Pain/Temp > 100.5 10/21/17 08:15 11/13/17 08:14 10/23/17 00:19 Acetaminophen (Tylenol) 650 mg Q4H PRN RECTAL Mild Pain (Pain Scale 1-3) 10/21/17 12:00 11/20/17 11:59 10/22/17 02:07 Al Hydroxide/Mg Hydroxide (Mylanta II) 30 ml Q6H PRN GT dyspepsia 10/21/17 06:30 11/10/17 12:29 Aspirin (ASA) 81 mg DAILY GT 10/21/17 09:00 11/12/17 08:59 10/24/17 09:11 Atorvastatin Calcium (Lipitor) 10 mg BEDTIME GT 10/21/17 21:00 11/11/17 20:59 10/23/17 21:17 Chlorhexidine Gluconate (Pamela-Hex 2%) 1 applic DAILY@2000 TOPIC 10/24/17 20:00 11/23/17 19:59 Dextrose/Sodium Chloride 1,000 ml @ 100 mls/hr Q10H IV 10/21/17 05:30 11/19/17 19:59 10/24/17 12:42 Lorazepam (Ativan 2mg/ml 1ml) 0.5 mg Q4H PRN IV For Anxiety 10/21/17 07:15 10/26/17 19:14 Lorazepam (Ativan 2mg/ml 1ml) 2 mg Q1H PRN IV PERSISTENT AGITATION 10/21/17 08:15 10/28/17 08:14 10/22/17 21:33 Metoprolol Tartrate (Lopressor) 25 mg Q12HR GT 10/21/17 09:00 11/13/17 20:59 10/24/17 09:12 Morphine Sulfate (Morphine Sulfate) 4 mg Q2H PRN IVP For Pain 10/21/17 06:00 10/28/17 05:59 Nitroglycerin (Ntg) 0.4 mg Q5MIN X 3 DOSES PRN SL Prn Chest Pain 10/21/17 05:30 11/14/17 16:59 Ondansetron HCl (Zofran) 4 mg Q6H PRN IVP Nausea & Vomiting 10/21/17 06:30 11/10/17 12:29 Piperacillin Sod/ Tazobactam Sod 4.5 gm/Sodium Chloride 110 ml @ 27.5 mls/hr EVERY 8 HOURS IVPB 10/21/17 14:00 10/26/17 13:59 10/24/17 06:22 Polyethylene Glycol (Miralax) 17 gm DAILYPRN PRN GT Constipation 10/21/17 12:30 11/10/17 12:29 10/22/17 20:39 Potassium Phosphate 30 mm/ Sodium Chloride 560 ml @ 93.333 mls/ hr ONCE ONCE IV 10/24/17 11:00 10/24/17 16:59 10/24/17 12:17 Promethazine HCl/ Codeine (Phenergan with Codeine) 5 ml Q4H PRN GT For Cough 10/21/17 08:15 11/10/17 20:14 Valproic Acid (Depakene) 250 mg Q12HR@0630,1830 GT 10/21/17 06:30 11/14/17 18:29 10/24/17 07:14 Vancomycin HCl (Vanco rx to dose) 1 ea DAILY PRN MISC Per rx protocol 10/21/17 13:30 11/20/17 13:29 Vancomycin HCl/ Dextrose 250 ml @ 166.667 mls/hr Q12H IVPB 10/23/17 18:00 10/28/17 23:59 10/24/17 06:22 FAUSTINO AGARWAL M.D. Oct 24, 2017 12:48
[2017-10-24] MEDS ORDERED: Fleet's Enema 133ml RECTAL SCH (13:00)
--- NOTE | 2017-10-24 13:03 | 48 Hour Post Anesthesia Eval ---
Post Anesthesia Evaluation Procedure: Percutaneous tracheostomy Date of Evaluation: Oct 24, 2017 Time of Evaluation: 06:40 Blood Pressure Systolic: 118 0: 93 Pulse Rate: 115 Respiratory Rate: 17 Temperature (Fahrenheit): 99.6 O2 Sat by Pulse Oximetry: 98 Airway: patent Nausea: No Vomiting: No Pain Intensity: 0 Hydration Status: adequate Cardiopulmonary Status: at baseline Mental Status/LOC: patient returned to baseline Post-Anesthesia Complications: 0 Follow-up care needed: N/A - further care as per primary team YAQUELIN CHENEY M.D. Oct 24, 2017 13:02
--- NOTE | 2017-10-24 13:09 | General Progress Note ---
Progress Note Progress Note Surgery: POD #1 s/p trach. doing well. no issues. comfortable. vent functional and trach working great! able to nod and understands commands today. rectal fecal impaction. abd distended, soft, tympanic. disimpacted patient at bedside. -trach care and management -enema and stool softeners. Darren Esteban Oct 24, 2017 13:09
[2017-10-24] MEDS ORDERED: Acetaminophen 650 MG SUPP RECTAL PRN (17:08)
[2017-10-24] MEDS ORDERED: LORazepam Inj 2mg/ml 1ml IV PRN ×2 (17:09)
[2017-10-24] MEDS ORDERED: Mylanta II UD 30ml GT PRN (17:09)
[2017-10-24] MEDS ORDERED: Promethazine/Codeine 5ml UD GT PRN (17:10)
[2017-10-24] MEDS ORDERED: Miralax 17gm pkt GT PRN (17:10)
[2017-10-24] MEDS ORDERED: Nitroglycerin Subl 0.4mg tab SL PRN (17:10)
[2017-10-24] MEDS ORDERED: Morphine Sulfate 4mg/ml Inj IVP PRN (17:10)
[2017-10-24] MEDS: Fleet's Enema 133ml RECTAL SCH (17:56)
[2017-10-24] MEDS: Vancomycin 1250mg/D5W 250ml 250 ML IVPB SCH (17:57)
[2017-10-24] MEDS ORDERED: Dyna-Hex 2% Top Sol 2oz TOPIC SCH (20:00)
[2017-10-24] MEDS: Dyna-Hex 2% Top Sol 2oz TOPIC SCH (20:48)
--- NOTE | 2017-10-24 21:15 | Consultation ---
DATE OF CONSULTATION: 10/24/2017 CONSULTING PHYSICIAN: Axel Vasquez M.D. REASON FOR CONSULTATION: Gross hematuria. HISTORY OF PRESENT ILLNESS: The patient is a 61-year-old long term patient that developed gross hematuria from the Cervantes catheter. I was asked by Dr. Martines to evaluate the patient. MEDICAL HISTORY: Cannot obtain medical history. The patient is intubated. MEDICATIONS: He was previously on aspirin, atorvastatin, calcium, docusate sodium, multivitamins, and valproate sodium. REVIEW OF SYMPTOMS: Not obtainable due to his inability to communicate with me. PHYSICAL EXAMINATION: GENERAL: He is on BiPAP, in distress, and has a central line. NECK: Supple. Normal inspection. RESPIRATORY: Decreased breath sounds. CARDIOVASCULAR: Peripheral pulses are normal. ABDOMEN: Slightly distended. Positive bowel sounds. Cervantes catheter is in the penis. Urine is clear. No evidence of gross hematuria or clots. Cervantes was irrigated. There was no evidence of clots in the aspirate. LABORATORY AND DIAGNOSTIC DATA: Laboratory data was evaluated. His white count is 22 and hematocrit is 47. Creatinine 0.9. ASSESSMENT AND PLAN: The patient has septic condition and requires Cervantes. I would observe his urine. If it is clear, at some point Cervantes can be discontinued per Primary Care team. I will follow this patient with you. Thank you for the consultation. Axel Vasquez M.D. DR: SABAS JOB#: [id number] CC:
[2017-10-24] MEDS ORDERED: Piperacillin/Tazobactam 4.5 GM in NS 110 ML IVPB SCH (22:00)
[2017-10-25] VITALS: BP 120/66
[2017-10-25 04:00] VITALS: BP 133/85
[2017-10-25] MEDS: Valproic Acid 250mg/5ml Liquid GT SCH ×2 (05:01→17:23)
[2017-10-25] MEDS: Vancomycin 1250mg/D5W 250ml 250 ML IVPB SCH ×2 (05:02→17:49)
[2017-10-25 05:57] LABS: BASOPHILS % (AUTO) 0.9 % (0.0-2.0); EOSINOPHILS % (AUTO) 1.1 % (0.0-3.0); HEMATOCRIT 32.2 % (42.0-52.0); HEMOGLOBIN 10.8 G/DL (14.2-18.0); MEAN CORPUSCULAR VOLUME 85 FL (80-99); MONOCYTES % (AUTO) 11.3 % (1.0-10.0); NEUTROPHILS % (AUTO) 81.7 % (45.0-75.0); PLATELET COUNT 667 K/UL (150-450); RED BLOOD COUNT 3.79 M/UL (4.70-6.10); RED CELL DISTRIBUTION WIDTH 12.5 % (11.6-14.8); WHITE BLOOD COUNT 17.3 K/UL (4.8-10.8)
[2017-10-25 06:36] LABS: ALANINE AMINOTRANSFERASE 43 U/L (12-78); ALBUMIN 1.4 G/DL (3.4-5.0); ALBUMIN/GLOBULIN RATIO 0.3 (1.0-2.7); ALKALINE PHOSPHATASE 145 U/L (46-116); ANION GAP 5 mmol/L (5-15); ASPARTATE AMINO TRANSFERASE 31 U/L (15-37); BILIRUBIN,TOTAL 0.4 MG/DL (0.2-1.0); BLOOD UREA NITROGEN 18 mg/dL (7-18); CALCIUM 7.9 MG/DL (8.5-10.1); CARBON DIOXIDE 30 MMOL/L (21-32); CHLORIDE 102 MMOL/L (98-107); CREATININE 1.3 MG/DL (0.55-1.30); PHOSPHORUS 2.5 MG/DL (2.5-4.9); POTASSIUM 2.8 MMOL/L (3.5-5.1); SODIUM 136 MMOL/L (136-145)
[2017-10-25 08:00] VITALS: BP 123/73
[2017-10-25] MEDS: Piperacillin/Tazobactam 4.5 GM in NS 110 ML IVPB SCH ×3 (08:50→23:42)
[2017-10-25] MEDS ORDERED: Aspirin Baby 81mg GT SCH (09:00)
[2017-10-25] MEDS: Metoprolol 25mg tab GT SCH ×2 (10:28→20:17)
[2017-10-25] MEDS: Fleet's Enema 133ml RECTAL SCH (10:36)
--- NOTE | 2017-10-25 10:42 | GI Progress Note ---
Assessment/Plan Problems: (1) Dysphagia ICD Codes: R13.10 - Dysphagia, unspecified SNOMED: 08262969, 443372659 (2) Dementia ICD Codes: F03.90 - Unspecified dementia without behavioral disturbance SNOMED: 24859253 (3) PEG (percutaneous endoscopic gastrostomy) adjustment/replacement/removal ICD Codes: Z43.1 - Encounter for attention to gastrostomy SNOMED: 304161550, 080129841 (4) CVA, old, hemiparesis ICD Codes: I69.359 - Hemiplegia and hemiparesis following cerebral infarction affecting unspecified side SNOMED: 63901339, 41987665, [id number] Status: progressing Status Narrative Discussed with Dr. Campos. Assessment/Plan s/p PEG KUB reviewed >> Distended small bowel. Ileus versus obstruction. Rectal fecal impaction. maintain NPO + IVFs GT mineral oil x 1 cont enema / digital disimpaction prn supervisor of way imaging prn fu labs Subjective Subjective limited Objective Last 24 Hour Vital Signs Date Time Temp Pulse Resp B/P (MAP) Pulse Ox O2 Delivery O2 Flow Rate FiO2 10/25/17 10:28 128 123/73 10/25/17 09:29 128 26 50 10/25/17 08:00 50 10/25/17 08:00 99.5 112 27 123/73 98 Mechanical Ventilator 70 10/25/17 07:00 111 21 50 10/25/17 05:15 9 24 50 10/25/17 04:00 98.1 103 20 133/85 98 Mechanical Ventilator 70 10/25/17 04:00 50 10/25/17 04:00 109 10/25/17 03:30 99 24 50 10/25/17 01:40 101 22 50 10/25/17 00:00 106 10/25/17 00:00 98.4 105 18 120/66 98 Mechanical Ventilator 70 10/24/17 23:20 107 21 50 10/24/17 21:48 97.9 10/24/17 21:48 97.9 10/24/17 21:00 99.7 10/24/17 20:49 115 139/85 10/24/17 20:49 99.6 10/24/17 20:33 108 22 50 10/24/17 20:00 99.6 111 22 126/85 100 Mechanical Ventilator 70 10/24/17 20:00 112 10/24/17 20:00 50 10/24/17 19:25 111 24 50 10/24/17 17:09 114 21 50 10/24/17 16:00 99.2 105 21 129/85 96 Mechanical Ventilator 70 10/24/17 16:00 50 10/24/17 16:00 105 10/24/17 14:51 105 21 50 10/24/17 14:00 113 19 130/89 96 Mechanical Ventilator 50 10/24/17 13:03 211.3 115 17 98 10/24/17 13:00 113 17 119/74 96 Mechanical Ventilator 50 10/24/17 12:47 106 29 50 10/24/17 12:00 50 10/24/17 12:00 99.4 107 21 115/85 79 Mechanical Ventilator 70 10/24/17 12:00 105 10/24/17 11:00 113 17 119/74 96 Mechanical Ventilator 50 Intake and Output 10/24/17 10/25/17 19:00 07:00 Intake Total 1487.082 ml 1288.6 ml Output Total 310 ml 35 ml Balance 1177.082 ml 1253.6 ml IV Total 1387.082 ml 1288.6 ml Other 100 ml Output Urine Total 310 ml 35 ml # Bowel Movements 7 5 Laboratory Tests Test 10/25/17 05:35 10/25/17 09:34 White Blood Count 17.3 K/UL (4.8-10.8) H Red Blood Count 3.79 M/UL (4.70-6.10) L Hemoglobin 10.8 G/DL (14.2-18.0) L Hematocrit 32.2 % (42.0-52.0) L Mean Corpuscular Volume 85 FL (80-99) Mean Corpuscular Hemoglobin 28.5 PG (27.0-31.0) Mean Corpuscular Hemoglobin Concent 33.6 G/DL (32.0-36.0) Red Cell Distribution Width 12.5 % (11.6-14.8) Platelet Count 667 K/UL (150-450) H Mean Platelet Volume 5.3 FL (6.5-10.1) L Neutrophils (%) (Auto) 81.7 % (45.0-75.0) H Lymphocytes (%) (Auto) 5.0 % (20.0-45.0) L Monocytes (%) (Auto) 11.3 % (1.0-10.0) H Eosinophils (%) (Auto) 1.1 % (0.0-3.0) Basophils (%) (Auto) 0.9 % (0.0-2.0) Sodium Level 136 MMOL/L (136-145) Potassium Level 2.8 MMOL/L (3.5-5.1) L Chloride Level 102 MMOL/L (98-107) Carbon Dioxide Level 30 MMOL/L (21-32) Anion Gap 5 mmol/L (5-15) Blood Urea Nitrogen 18 mg/dL (7-18) Creatinine 1.3 MG/DL (0.55-1.30) Estimat Glomerular Filtration Rate > 60 mL/min (>60) Glucose Level 122 MG/DL (74-106) H Calcium Level 7.9 MG/DL (8.5-10.1) L Phosphorus Level 2.5 MG/DL (2.5-4.9) Magnesium Level 2.3 MG/DL (1.8-2.4) Total Bilirubin 0.4 MG/DL (0.2-1.0) Aspartate Amino Transf (AST/SGOT) 31 U/L (15-37) Alanine Aminotransferase (ALT/SGPT) 43 U/L (12-78) Alkaline Phosphatase 145 U/L (46-116) H Total Protein 6.3 G/DL (6.4-8.2) L Albumin 1.4 G/DL (3.4-5.0) L Globulin 4.9 g/dL Albumin/Globulin Ratio 0.3 (1.0-2.7) L Vancomycin Level Trough 37.0 ug/mL (5.0-12.0) H Arterial Blood pH 7.500 (7.350-7.450) Arterial Blood Partial Pressure CO2 31.9 mmHg (35.0-45.0) L Arterial Blood Partial Pressure O2 102.4 mmHg (75.0-100.0) H Arterial Blood HCO3 24.4 mmol/L (22.0-26.0) Arterial Blood Oxygen Saturation 97.6 % (92.0-98.0) Arterial Blood Base Excess 1.5 Dipak Test Positive Height (Feet): 5 Height (Inches): 6.00 Weight (Pounds): 204 General Appearance: WD/WN, no apparent distress, alert Cardiovascular: normal rate Respiratory/Chest: normal breath sounds, no respiratory distress, other - mech vent Abdominal Exam: normal bowel sounds, non tender, soft, GT site - c/d/i Laura Lucas N.P. Oct 25, 2017 10:42
[2017-10-25] MEDS ORDERED: Mineral Oil 30ml ud GT PRN (10:45)
[2017-10-25] MEDS ORDERED: Potassium Phosphate 30 MM in Sodium Chloride 500ML 550 ML IV ONE (11:00)
[2017-10-25] MEDS ORDERED: Fleet's Enema 133ml RECTAL ONE (11:00)
[2017-10-25 12:00] VITALS: BP 111/62
--- NOTE | 2017-10-25 12:11 | Pulmonolgy Critical Care Note ---
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 - Objective Last 24 Hour Vital Signs Date Time Temp Pulse Resp B/P (MAP) Pulse Ox O2 Delivery O2 Flow Rate FiO2 10/25/17 11:05 133 28 50 10/25/17 10:28 128 123/73 10/25/17 09:29 128 26 50 10/25/17 08:00 50 10/25/17 08:00 99.5 112 27 123/73 98 Mechanical Ventilator 70 10/25/17 07:00 111 21 50 10/25/17 05:15 9 24 50 10/25/17 04:00 98.1 103 20 133/85 98 Mechanical Ventilator 70 10/25/17 04:00 50 10/25/17 04:00 109 10/25/17 03:30 99 24 50 10/25/17 01:40 101 22 50 10/25/17 00:00 106 10/25/17 00:00 98.4 105 18 120/66 98 Mechanical Ventilator 70 10/24/17 23:20 107 21 50 10/24/17 21:48 97.9 10/24/17 21:48 97.9 10/24/17 21:00 99.7 10/24/17 20:49 115 139/85 10/24/17 20:49 99.6 10/24/17 20:33 108 22 50 10/24/17 20:00 99.6 111 22 126/85 100 Mechanical Ventilator 70 10/24/17 20:00 112 10/24/17 20:00 50 10/24/17 19:25 111 24 50 10/24/17 17:09 114 21 50 10/24/17 16:00 99.2 105 21 129/85 96 Mechanical Ventilator 70 10/24/17 16:00 50 10/24/17 16:00 105 10/24/17 14:51 105 21 50 10/24/17 14:00 113 19 130/89 96 Mechanical Ventilator 50 10/24/17 13:03 211.3 115 17 98 10/24/17 13:00 113 17 119/74 96 Mechanical Ventilator 50 10/24/17 12:47 106 29 50 Status: somnolent HEENT: atraumatic Neck: full ROM Lungs: clear Heart: regular Abdomen: soft, active bowel sounds Extremities: no C/C/E Micro: Microbiology Date/Time Source Procedure Growth Status 10/23/17 15:15 Blood Blood Culture - Preliminary NO GROWTH AFTER 24 HOURS Resulted 10/23/17 14:55 Blood Blood Culture - Preliminary NO GROWTH AFTER 24 HOURS Resulted 10/23/17 15:00 Sputum Gram Stain - Final Complete 10/23/17 15:00 Sputum Culture - Final Jessica Albicans Usual Upper Respiratory Adrianne Complete 10/23/17 15:00 Urine,Clean Catch Urine Culture - Preliminary NO GROWTH AFTER 24 HOURS Resulted Critical Care - Subjective ROS Limited/Unobtainable: No Condition: critical EKG Rhythm: Sinus Rhythm FI02: 50 Vent Support Breath Rate: 18 Vent Support Mode: AC Vent Tidal Volume: 550 Sputum Amount: Large PEEP: 10.0 PIP: 30 Tube Feeding Amount: 20 I&O: Intake and Output 10/24/17 10/25/17 19:00 07:00 Intake Total 1487.082 ml 1288.6 ml Output Total 310 ml 35 ml Balance 1177.082 ml 1253.6 ml IV Total 1387.082 ml 1288.6 ml Other 100 ml Output Urine Total 310 ml 35 ml # Bowel Movements 7 5 CXR: no change, trach intact ET-Tube: 8.0 ET Position: 24 Labs: Laboratory Tests Test 10/25/17 05:35 10/25/17 09:34 White Blood Count 17.3 K/UL (4.8-10.8) H Red Blood Count 3.79 M/UL (4.70-6.10) L Hemoglobin 10.8 G/DL (14.2-18.0) L Hematocrit 32.2 % (42.0-52.0) L Mean Corpuscular Volume 85 FL (80-99) Mean Corpuscular Hemoglobin 28.5 PG (27.0-31.0) Mean Corpuscular Hemoglobin Concent 33.6 G/DL (32.0-36.0) Red Cell Distribution Width 12.5 % (11.6-14.8) Platelet Count 667 K/UL (150-450) H Mean Platelet Volume 5.3 FL (6.5-10.1) L Neutrophils (%) (Auto) 81.7 % (45.0-75.0) H Lymphocytes (%) (Auto) 5.0 % (20.0-45.0) L Monocytes (%) (Auto) 11.3 % (1.0-10.0) H Eosinophils (%) (Auto) 1.1 % (0.0-3.0) Basophils (%) (Auto) 0.9 % (0.0-2.0) Sodium Level 136 MMOL/L (136-145) Potassium Level 2.8 MMOL/L (3.5-5.1) L Chloride Level 102 MMOL/L (98-107) Carbon Dioxide Level 30 MMOL/L (21-32) Anion Gap 5 mmol/L (5-15) Blood Urea Nitrogen 18 mg/dL (7-18) Creatinine 1.3 MG/DL (0.55-1.30) Estimat Glomerular Filtration Rate > 60 mL/min (>60) Glucose Level 122 MG/DL (74-106) H Calcium Level 7.9 MG/DL (8.5-10.1) L Phosphorus Level 2.5 MG/DL (2.5-4.9) Magnesium Level 2.3 MG/DL (1.8-2.4) Total Bilirubin 0.4 MG/DL (0.2-1.0) Aspartate Amino Transf (AST/SGOT) 31 U/L (15-37) Alanine Aminotransferase (ALT/SGPT) 43 U/L (12-78) Alkaline Phosphatase 145 U/L (46-116) H Total Protein 6.3 G/DL (6.4-8.2) L Albumin 1.4 G/DL (3.4-5.0) L Globulin 4.9 g/dL Albumin/Globulin Ratio 0.3 (1.0-2.7) L Vancomycin Level Trough 37.0 ug/mL (5.0-12.0) H Arterial Blood pH 7.500 (7.350-7.450) Arterial Blood Partial Pressure CO2 31.9 mmHg (35.0-45.0) L Arterial Blood Partial Pressure O2 102.4 mmHg (75.0-100.0) H Arterial Blood HCO3 24.4 mmol/L (22.0-26.0) Arterial Blood Oxygen Saturation 97.6 % (92.0-98.0) Arterial Blood Base Excess 1.5 Dipak Test Positive EDDIE COLES Oct 25, 2017 12:10
--- NOTE | 2017-10-25 13:07 | Diagnostic Imaging Report ---
Indication: Dyspnea Comparison: 10/24/2017 A single view chest radiograph was obtained. Findings: There is better aeration of the right lung with improved atelectasis involving the right perihilar and basilar aspect of the lung. Heart size is stable. Tracheostomy is noted. IMPRESSION: Improved right perihilar and basal atelectasis with some residual present. Pneumonia is not excluded
[2017-10-25] MEDS: D5 1/2NS 1,000 ML IV SCH ×2 (14:25→23:42)
--- NOTE | 2017-10-25 14:25 | General Progress Note ---
Progress Note Progress Note Surgery: doing well. trach functional without issues. more awake and responsive. abd still distended but softer today. good BM's with enema's and disimpaction yesterday. will follow. KUB tomorrow. cont with bowel care. Darren Esteban Oct 25, 2017 14:25
[2017-10-25 16:00] VITALS: BP 100/61
--- NOTE | 2017-10-25 16:25 | Infectious Diseases Prog Note ---
Assessment/Plan Assessment/Plan Fever improving Leukocytosis improving but worsening post op -CXR: Improved right perihilar and basal atelectasis with some residual present. Pneumonia is not excluded -abd xray : Distended small bowel. Ileus versus obstruction. Rectal fecal impaction. -10/23 Bcx NTD, UCx NTD, sp Cx c. albicans, usual resp johnnie Severe Sepsis- SP E.coli UTI w/ bacteremia -REnal US: Limited exam. No definite hydronephrosis. Empty bladder, containing a Cervantes catheter. Bronchitis; SCx : Nl johnnie Suspicion for Flu despite rapid test (+URI symptoms, sick contacts) Acute hypoxic resp failure- intubated (10/20) Cxray :Interval reexpansion of the some of the right lung.ht. -Influenza neg 12/18 KUB : Distended small bowel. Ileus versus obstruction. SP Trach 10/23 JULIA, reslved Lactic acidosis, resolved SP EGD 10/18 Path: H Pylori Neg CVA with hemiplegia HTN cataract dysphagia Hx of fall CAD/DC CVA/TIA dementia seizure disorder Plan: - Continue empiric IV Zosyn and IV Vanco d# 5 for now pending repeat cultures and WBC/fever trend - 10/21 SP Ceftriaxone 2 g qd d# 11 - 2 SP empiric Tamiflu #6/5 -2/5 SP IV Vancomcyin #5, Meropenm #3 -2/3 SP Cefepime #3 -Low threshold for contrast CT abd/p if worsening of fever or leukocytosis -cdiff -Monitor CBC/BMP, temperatures; Trend WBC -aspiration precautions - vent Support - f/u tolliver culture ( Bl , ur ,Sp ) Subjective Allergies: Coded Allergies: NO KNOWN ALLERGIES (Unverified Allergy, Unknown, 09/03/15) Subjective afebrile>48hrs, Tm 99.8 leukocytosis increasing, but overall improved from prior Objective Vital Signs Last 24 Hour Vital Signs Date Time Temp Pulse Resp B/P (MAP) Pulse Ox O2 Delivery O2 Flow Rate FiO2 10/25/17 14:55 112 24 50 10/25/17 12:58 111 25 50 10/25/17 12:00 125 10/25/17 12:00 50 10/25/17 12:00 99.8 128 26 111/62 98 Mechanical Ventilator 50 2/15/18 11:05 133 28 50 10/25/17 10:28 128 123/73 10/25/17 09:29 128 26 50 10/25/17 08:00 50 10/25/17 08:00 99.5 112 27 123/73 98 Mechanical Ventilator 70 10/25/17 08:00 108 10/25/17 07:00 111 21 50 10/25/17 05:15 9 24 50 10/25/17 04:00 98.1 103 20 133/85 98 Mechanical Ventilator 70 10/25/17 04:00 50 10/25/17 04:00 109 10/25/17 03:30 99 24 50 10/25/17 01:40 101 22 50 10/25/17 00:00 106 10/25/17 00:00 98.4 105 18 120/66 98 Mechanical Ventilator 70 10/24/17 23:20 107 21 50 10/24/17 21:48 97.9 10/24/17 21:48 97.9 10/24/17 21:00 99.7 10/24/17 20:49 115 139/85 10/24/17 20:49 99.6 10/24/17 20:33 108 22 50 10/24/17 20:00 99.6 111 22 126/85 100 Mechanical Ventilator 70 10/24/17 20:00 112 10/24/17 20:00 50 10/24/17 19:25 111 24 50 10/24/17 17:09 114 21 50 Height (Feet): 5 Height (Inches): 6.00 Weight (Pounds): 204 Objective General Appearance: alert, moderate distress, Chronically Ill Head: normocephalic, atraumatic ENT: hearing grossly normal, normal pharynx, no angioedema, normal voice, injected conjuctiva Neck: full range of motion, supple/symm/no masses Respiratory: chest non-tender, lungs clear, normal breath sounds, no retraction , no accessory muscle use, speaking full sentences, other - tachypnea Cardiovascular no edema, tachycardia Gastrointestinal: normal bowel sounds, non tender, soft, non-distended, no guarding, no rebound Musculoskeletal: back normal, normal range of motion Skin: normal color, no rash, warm/dry, well hydrated Microbiology Date/Time Source Procedure Growth Status 10/23/17 15:15 Blood Blood Culture - Preliminary NO GROWTH AFTER 24 HOURS Resulted 10/23/17 14:55 Blood Blood Culture - Preliminary NO GROWTH AFTER 24 HOURS Resulted 10/23/17 15:00 Sputum Gram Stain - Final Complete 10/23/17 15:00 Sputum Culture - Final Jessica Albicans Usual Upper Respiratory Johnnie Complete 10/23/17 15:00 Urine,Clean Catch Urine Culture - Preliminary NO GROWTH AFTER 24 HOURS Resulted Laboratory Tests Test 10/25/17 05:35 10/25/17 09:34 White Blood Count 17.3 K/UL (4.8-10.8) H Red Blood Count 3.79 M/UL (4.70-6.10) L Hemoglobin 10.8 G/DL (14.2-18.0) L Hematocrit 32.2 % (42.0-52.0) L Mean Corpuscular Volume 85 FL (80-99) Mean Corpuscular Hemoglobin 28.5 PG (27.0-31.0) Mean Corpuscular Hemoglobin Concent 33.6 G/DL (32.0-36.0) Red Cell Distribution Width 12.5 % (11.6-14.8) Platelet Count 667 K/UL (150-450) H Mean Platelet Volume 5.3 FL (6.5-10.1) L Neutrophils (%) (Auto) 81.7 % (45.0-75.0) H Lymphocytes (%) (Auto) 5.0 % (20.0-45.0) L Monocytes (%) (Auto) 11.3 % (1.0-10.0) H Eosinophils (%) (Auto) 1.1 % (0.0-3.0) Basophils (%) (Auto) 0.9 % (0.0-2.0) Sodium Level 136 MMOL/L (136-145) Potassium Level 2.8 MMOL/L (3.5-5.1) L Chloride Level 102 MMOL/L (98-107) Carbon Dioxide Level 30 MMOL/L (21-32) Anion Gap 5 mmol/L (5-15) Blood Urea Nitrogen 18 mg/dL (7-18) Creatinine 1.3 MG/DL (0.55-1.30) Estimat Glomerular Filtration Rate > 60 mL/min (>60) Glucose Level 122 MG/DL (74-106) H Calcium Level 7.9 MG/DL (8.5-10.1) L Phosphorus Level 2.5 MG/DL (2.5-4.9) Magnesium Level 2.3 MG/DL (1.8-2.4) Total Bilirubin 0.4 MG/DL (0.2-1.0) Aspartate Amino Transf (AST/SGOT) 31 U/L (15-37) Alanine Aminotransferase (ALT/SGPT) 43 U/L (12-78) Alkaline Phosphatase 145 U/L (46-116) H Total Protein 6.3 G/DL (6.4-8.2) L Albumin 1.4 G/DL (3.4-5.0) L Globulin 4.9 g/dL Albumin/Globulin Ratio 0.3 (1.0-2.7) L Vancomycin Level Trough 37.0 ug/mL (5.0-12.0) H Arterial Blood pH 7.500 (7.350-7.450) Arterial Blood Partial Pressure CO2 31.9 mmHg (35.0-45.0) L Arterial Blood Partial Pressure O2 102.4 mmHg (75.0-100.0) H Arterial Blood HCO3 24.4 mmol/L (22.0-26.0) Arterial Blood Oxygen Saturation 97.6 % (92.0-98.0) Arterial Blood Base Excess 1.5 Dipak Test Positive Current Medications Medications (Trade) Dose Ordered Sig/Olvin Route PRN Reason Start Time Stop Time Status Last Admin Dose Admin Acetaminophen (Tylenol) 650 mg Q4H PRN ORAL Mild Pain/Temp > 100.5 10/24/17 17:09 11/13/17 17:08 10/24/17 20:49 Acetaminophen (Tylenol) 650 mg Q4H PRN RECTAL Mild Pain (Pain Scale 1-3) 10/24/17 17:08 11/20/17 17:07 Al Hydroxide/Mg Hydroxide (Mylanta II) 30 ml Q6H PRN GT dyspepsia 10/24/17 17:09 11/10/17 17:08 Aspirin (ASA) 81 mg DAILY GT 10/25/17 09:00 11/12/17 08:59 10/25/17 10:28 Atorvastatin Calcium (Lipitor) 10 mg BEDTIME GT 10/24/17 21:00 11/11/17 20:59 10/24/17 20:49 Chlorhexidine Gluconate (Pamela-Hex 2%) 1 applic DAILY@2000 TOPIC 10/24/17 20:00 11/23/17 19:59 10/24/17 20:48 Dextrose/Sodium Chloride 1,000 ml @ 100 mls/hr Q10H IV 10/24/17 17:08 11/19/17 17:07 10/25/17 14:25 Lorazepam (Ativan 2mg/ml 1ml) 0.5 mg Q4H PRN IV For Anxiety 10/24/17 17:09 10/26/17 17:08 Lorazepam (Ativan 2mg/ml 1ml) 2 mg Q1H PRN IV PERSISTENT AGITATION 10/24/17 17:09 10/28/17 17:08 Metoprolol Tartrate (Lopressor) 25 mg Q12HR GT 10/24/17 21:00 11/13/17 20:59 10/25/17 10:28 Mineral Oil (Mineral Oil) 30 ml DAILYPRN PRN GT Constipation 10/25/17 10:45 11/24/17 10:44 Morphine Sulfate (Morphine Sulfate) 4 mg Q2H PRN IVP For Pain 10/24/17 17:10 10/28/17 17:09 Nitroglycerin (Ntg) 0.4 mg Q5MIN X 3 DOSES PRN SL Prn Chest Pain 10/24/17 17:10 11/14/17 17:09 Ondansetron HCl (Zofran) 4 mg Q6H PRN IVP Nausea & Vomiting 10/24/17 17:10 11/10/17 17:09 Piperacillin Sod/ Tazobactam Sod 4.5 gm/Sodium Chloride 110 ml @ 27.5 mls/hr Q8H IVPB 10/25/17 08:00 11/01/17 07:59 10/25/17 08:50 Polyethylene Glycol (Miralax) 17 gm DAILYPRN PRN GT Constipation 10/24/17 17:10 11/23/17 17:09 Potassium Chloride (K-Dur) 40 meq EVERY 4 HOURS GT 10/25/17 16:30 10/25/17 21:00 Promethazine HCl/ Codeine (Phenergan with Codeine) 5 ml Q4H PRN GT For Cough 10/24/17 17:10 11/10/17 17:09 Valproic Acid (Depakene) 250 mg Q12HR@0630,1830 GT 10/24/17 18:30 11/14/17 18:29 10/25/17 05:01 Vancomycin HCl (Vanco rx to dose) 1 ea DAILY PRN MISC Per rx protocol 10/24/17 17:10 11/23/17 17:09 Vancomycin HCl/ Dextrose 250 ml @ 166.667 mls/hr Q12H IVPB 10/24/17 18:00 10/28/17 23:59 10/25/17 05:02 Alessia Akers M.D. Oct 25, 2017 16:25
[2017-10-25] MEDS ORDERED: D5 1/2NS 1000ml IV ONE ×2 (17:34→17:42)
[2017-10-25] MEDS ORDERED: Tubing IV Secondary IV ONE (17:34)
[2017-10-25] MEDS ORDERED: NS 275ml ONE (17:34)
[2017-10-25 20:00] VITALS: BP 139/72
[2017-10-25] MEDS: Dyna-Hex 2% Top Sol 2oz TOPIC SCH (20:21)
[2017-10-26] VITALS (39 sets, daily range): BP systolic 45–167; BP diastolic 25–119
[2017-10-26 05:22] LABS: HEMATOCRIT 14.9 % (42.0-52.0); MEAN CORPUSCULAR VOLUME 88 FL (80-99); PLATELET COUNT 472 K/UL (150-450); RED BLOOD COUNT 1.69 M/UL (4.70-6.10); RED CELL DISTRIBUTION WIDTH 13.3 % (11.6-14.8)
[2017-10-26 05:28] LABS: ALANINE AMINOTRANSFERASE 431 U/L (12-78); ALBUMIN 0.9 G/DL (3.4-5.0); ALBUMIN/GLOBULIN RATIO 0.3 (1.0-2.7); ALKALINE PHOSPHATASE 75 U/L (46-116); ANION GAP 15 mmol/L (5-15); ASPARTATE AMINO TRANSFERASE 628 U/L (15-37); BILIRUBIN,TOTAL 0.3 MG/DL (0.2-1.0); BLOOD UREA NITROGEN 53 mg/dL (7-18); CALCIUM 6.9 MG/DL (8.5-10.1); CARBON DIOXIDE 19 MMOL/L (21-32); CHLORIDE 104 MMOL/L (98-107); CREATININE 3.3 MG/DL (0.55-1.30); POTASSIUM 4.1 MMOL/L (3.5-5.1); SODIUM 138 MMOL/L (136-145)
[2017-10-26 05:31] LABS: WHITE BLOOD COUNT 25.3 K/UL (4.8-10.8)
[2017-10-26] MEDS ORDERED: Nitroglycerin Subl 0.4mg tab SL PRN (05:45)
[2017-10-26] MEDS ORDERED: Acetaminophen 650 MG SUPP RECTAL PRN (05:49)
[2017-10-26] MEDS ORDERED: Morphine Sulfate 4mg/ml Inj IVP PRN (05:50)
[2017-10-26] MEDS ORDERED: Mylanta II UD 30ml GT PRN (05:50)
[2017-10-26] MEDS ORDERED: LORazepam Inj 2mg/ml 1ml IV PRN ×2 (06:15→09:15)
--- NOTE | 2017-10-26 07:10 | Emergency Room Report ---
History of Present Illness General Chief Complaint: Altered Level of Consciousness Source: Medical Record, PMD Present Illness Allergies: Coded Allergies: NO KNOWN ALLERGIES (Unverified Allergy, Unknown, 09/03/15) Nursing Documentation-[facility] Past Medical History: No History, Except For Hx Hypertension: Yes Hx Cancer: No Hx Gastrointestinal Problems: Yes - dysphagia Hx Neurological Problems: Yes - muscle weakness, hx of fall, obstructive hydrocephalus Hx Cerebrovascular Accident: Yes Hx Seizures: Yes Hx Epilepsy: Yes Physical Exam Vital Signs Date Time Temp Pulse Resp B/P (MAP) Pulse Ox O2 Delivery O2 Flow Rate FiO2 10/11/17 18:51 102.9 112 20 112/82 99 Non-Rebreather 15.0 10/11/17 20:57 30 Procedures Critical Care Time Critical Care Time i. I feel this is a highly complex case requiring extensive working including EKG/Rhythm strip, Xray/CT/US, Blood/urine lab work, repeat exams while in ED, and administration of strong opiates/narcotics for pain control, admission to hospital or close patient follow up. Total time: 30 min bedside evaluation and treatment excludes procedures (EKG). Reason for critical care: Cardiac arrest Possible complications: hypotension, hypertension, OR, shock, arrhythmias, metabolic acidosis, end organ damage, respiratory failure. Interventions: Chest compressions, epinephrine, rhythm check Course: Patient became bradycardic and lost pulse in ICU. Patient given epinephrine, chest compressions. Regained pulses. Moved to ICU Consultations: nursing staff, EMS, family Performed by: Dr Brown Tolerated well condition = critical j. because of unstable vital signs this patient had a condition that could potentially threaten life or limb. I feel this is a critical patient who required my full attention while patient was considered critical. Total Critical Care Time excluding procedures was greater than 35 minutes CPR/Code Blue CPR/Code Blue Narrative see code blue sheet for narrative Medical Decision Making Diagnostic Impression: Primary Impression: Sepsis Additional Impressions: Fever Renal failure Pneumonia Lactic acidosis ER Course I was called to this CODE BLUE. Patient became bradycardic and lost pulses. Rhythm PEA. Chest compressions started. Patient given epinephrine x1. After rhythm checks patient regained pulses. Blood pressure improved. Patient moved to ICU Last Vital Signs Date Time Temp Pulse Resp B/P (MAP) Pulse Ox O2 Delivery O2 Flow Rate FiO2 10/26/17 06:30 72 22 45/25 100 Mechanical Ventilator 50 10/26/17 05:30 98.1 10/22/17 18:14 15.0 Status: unchanged Disposition: ADMITTED INPATIENT Condition: Critical Referrals: NON PHYSICIAN (PCP) KISHORE BROWN M.D. Oct 26, 2017 07:10
[2017-10-26] MEDS: Valproic Acid 250mg/5ml Liquid GT SCH ×2 (07:16→18:40)
[2017-10-26] MEDS: D5 1/2NS 1,000 ML IV SCH ×2 (07:18→15:31)
[2017-10-26] MEDS ORDERED: Levophed 4mg/4mL Inj IV ONE ×2 (07:27→14:19)
--- NOTE | 2017-10-26 07:30 | Emergency Room Report ---
History of Present Illness General Chief Complaint: Altered Level of Consciousness Source: Medical Record, PMD Present Illness Allergies: Coded Allergies: NO KNOWN ALLERGIES (Unverified Allergy, Unknown, 09/03/15) Nursing Documentation-[facility] Past Medical History: No History, Except For Hx Hypertension: Yes Hx Cancer: No Hx Gastrointestinal Problems: Yes - dysphagia Hx Neurological Problems: Yes - muscle weakness, hx of fall, obstructive hydrocephalus Hx Cerebrovascular Accident: Yes Hx Seizures: Yes Hx Epilepsy: Yes Physical Exam Vital Signs Date Time Temp Pulse Resp B/P (MAP) Pulse Ox O2 Delivery O2 Flow Rate FiO2 10/11/17 18:51 102.9 112 20 112/82 99 Non-Rebreather 15.0 10/11/17 20:57 30 Procedures Central Line Central Line : Consent: Emergent Central Line Lumen: triple Maximal Sterile Barrier Tech: yes cap, yes mask, yes sterile gown, yes sterile gloves, yes large sterile sheet, yes hand hygiene, yes chlorhexidine prep Central Line Postion: subclavian (R) Complications: none Central Line Post Position: sutured, good blood return, position confirmed w / CXR Attempts: One Patient Tolerated: Well Complications: None CPR/Code Blue CPR/Code Blue Narrative I was called evaluate patient after bradycardic arrest. Patient had CPR ongoing. Patient had limited IV access. The patient was given IV medications as per code sheet. The patient was noted to be bradycardic as well as anemic with hemoglobin in the fives. Patient was given atropine with return spontaneous circulation. A right femoral central venous line was attempted. Subsequently a right subclavian central venous catheter was placed under sterile technique emergently Medical Decision Making Diagnostic Impression: Primary Impression: Sepsis Additional Impressions: Fever Renal failure Pneumonia Lactic acidosis Last Vital Signs Date Time Temp Pulse Resp B/P (MAP) Pulse Ox O2 Delivery O2 Flow Rate FiO2 10/26/17 06:30 72 22 45/25 100 Mechanical Ventilator 50 10/26/17 05:30 98.1 10/22/17 18:14 15.0 Disposition: ADMITTED INPATIENT Condition: Critical Referrals: NON PHYSICIAN (PCP) Royal Rocha Oct 26, 2017 07:30
[2017-10-26] MEDS ORDERED: Albuterol/Ipratropium 3ml neb HHN PRN (07:45)
[2017-10-26] MEDS ORDERED: Zosyn 3.375gm q8h **Extended infusion IVPB SCH ×2 (08:00)
[2017-10-26] MEDS ORDERED: Piperacillin/Tazobactam 4.5 GM in NS 110 ML IVPB SCH (08:00)
--- NOTE | 2017-10-26 08:09 | Emergency Room Report ---
History of Present Illness General Chief Complaint: Altered Level of Consciousness Source: Medical Record, PMD Present Illness Allergies: Coded Allergies: NO KNOWN ALLERGIES (Unverified Allergy, Unknown, 09/03/15) Nursing Documentation-[facility] Past Medical History: No History, Except For Hx Hypertension: Yes Hx Cancer: No Hx Gastrointestinal Problems: Yes - dysphagia Hx Neurological Problems: Yes - muscle weakness, hx of fall, obstructive hydrocephalus Hx Cerebrovascular Accident: Yes Hx Seizures: Yes Hx Epilepsy: Yes Physical Exam Vital Signs Date Time Temp Pulse Resp B/P (MAP) Pulse Ox O2 Delivery O2 Flow Rate FiO2 10/11/17 18:51 102.9 112 20 112/82 99 Non-Rebreather 15.0 10/11/17 20:57 30 Procedures CPR/Code Blue CPR/Code Blue Narrative Was called to evaluate patient after CODE BLUE. The patient was noted to have history of anemia from GI bleed. Patient had previously had O- blood ordered by me due to severe anemia. See CODE BLUE sheet. The patient was noted to have V. fib and was defibrillated x2 with return spontaneous circulation. Medical Decision Making Diagnostic Impression: Primary Impression: Sepsis Additional Impressions: Fever Renal failure Pneumonia Lactic acidosis Last Vital Signs Date Time Temp Pulse Resp B/P (MAP) Pulse Ox O2 Delivery O2 Flow Rate FiO2 10/26/17 07:00 98.1 97 22 147/83 100 Mechanical Ventilator 50 10/22/17 18:14 15.0 Disposition: ADMITTED INPATIENT Condition: Critical Referrals: NON PHYSICIAN (PCP) Royal Rocha Oct 26, 2017 08:09
[2017-10-26] MEDS: Metoprolol 25mg tab GT SCH ×2 (09:00→21:29)
[2017-10-26] MEDS ORDERED: Aspirin Baby 81mg GT SCH (09:00)
--- NOTE | 2017-10-26 09:05 | Diagnostic Imaging Report ---
Indication: Post line placement Technique: One view of the chest Comparison: 10/25/2017 Findings: Interim placement right subclavian central venous catheter, tip which projects at the level of the cavoatrial junction. No gross pneumothorax demonstrated. There is persistent and increased elevation of the right hemidiaphragm. There is right basilar and right perihilar atelectasis and possibly minimal consolidation. Left lung and bilateral pleural spaces remain clear. Normal heart size. Tracheostomy remains Impression: Satisfactory central line placement. No radiographically evident complication Other findings as noted Critical test results phoned to Alexandra, ICU nurse, at the time of interpretation
[2017-10-26] MEDS ORDERED: Promethazine/Codeine 5ml UD GT PRN (09:15)
--- NOTE | 2017-10-26 09:54 | Infectious Diseases Prog Note ---
Assessment/Plan Assessment/Plan Bradycardic> Vfib cardiac arrest 10/26 likely 2ry to hemorrhagic shock (drop Hgb 10.8 to 5)- possible GIB- r/o worsening sepsis -CXR 10/26: There is right basilar and right perihilar atelectasis and possibly minimal consolidation. Left lung and bilateral pleural spaces remain clear. Fever, ongoing Leukocytosis, worsening after code -CXR: Improved right perihilar and basal atelectasis with some residual present. Pneumonia is not excluded -abd xray : Distended small bowel. Ileus versus obstruction. Rectal fecal impaction. -10/23 Bcx NTD, UCx NTD, sp Cx c. albicans, usual resp johnnie JULIA E.coli UTI w/ bacteremia ; s/p Rx -REnal US: Limited exam. No definite hydronephrosis. Empty bladder, containing a Cervantes catheter. Bronchitis; SCx : Nl johnnie Suspicion for Flu despite rapid test (+URI symptoms, sick contacts); s/p Rx Acute hypoxic resp failure- intubated (10/20) Cxray :Interval reexpansion of the some of the right lung.ht. -Influenza neg 12/18 KUB : Distended small bowel. Ileus versus obstruction. SP Trach 10/23 Lactic acidosis, resolved SP EGD 10/18 Path: H Pylori Neg CVA with hemiplegia HTN cataract dysphagia Hx of fall CAD/IL CVA/TIA dementia seizure disorder Plan: -Continue empiric IV Vanco #6 and switch Zosyn #6 to Meropenem given HD decompensation and worsening leukocytosis -monitor closely for seizure activity as meropenem can decrease valproic acid levels (patient previously on meropenem; tolerated well) - 10/21 SP Ceftriaxone 2 g qd d# 11 - 10/17 SP empiric Tamiflu #6/5 -2/5 SP IV Vancomcyin #5, Meropenm #3 -/3 SP Cefepime #3 -Consider CT abd/p once more stable -repeat cultures -f/u cdiff -Monitor CBC/BMP, temperatures; Trend WBC -aspiration precautions - vent Support Subjective Allergies: Coded Allergies: NO KNOWN ALLERGIES (Unverified Allergy, Unknown, 09/03/15) Subjective Tm 100.8 coded x2 this am; 1st bradycardic arrest- given atropine with ROSC; then Vfib and defib x2 with ROSC. Hgb dropped from 10.8 to 5. Transferred to ICU. Started on Levophed Objective Vital Signs Last 24 Hour Vital Signs Date Time Temp Pulse Resp B/P (MAP) Pulse Ox O2 Delivery O2 Flow Rate FiO2 10/26/17 09:12 89 26 100 10/26/17 09:00 98.5 90 20 114/42 100 Mechanical Ventilator 50 10/26/17 08:30 100 17 116/93 99 Mechanical Ventilator 50 10/26/17 08:00 108 18 132/88 100 Mechanical Ventilator 50 10/26/17 08:00 50 10/26/17 08:00 114 10/26/17 07:54 100 10/26/17 07:30 64 18 46/28 90 Mechanical Ventilator 50 10/26/17 07:00 98.1 97 22 147/83 100 Mechanical Ventilator 50 10/26/17 06:42 100 10/26/17 06:30 72 22 45/25 100 Mechanical Ventilator 50 10/26/17 06:00 88 23 90/58 100 Mechanical Ventilator 50 10/26/17 05:30 98.1 97 22 158/60 100 Mechanical Ventilator 50 10/26/17 05:08 118 24 100 10/26/17 05:00 98.2 116 21 167/64 100 Mechanical Ventilator 50 10/26/17 04:00 98.1 102 24 128/79 100 Mechanical Ventilator 50 10/26/17 04:00 93 10/26/17 04:00 50 10/26/17 02:39 92 30 50 10/26/17 01:25 96 31 50 10/26/17 00:00 50 10/26/17 00:00 99 10/26/17 00:00 98.1 102 24 128/79 100 Mechanical Ventilator 50 10/25/17 23:25 110 31 50 18 22:28 97.5 18 22:28 97.5 10/25/17 21:29 99.9 10/25/17 21:29 99.9 18 21:24 108 35 50 18 20:17 116 139/72 18 20:07 99.8 10/25/17 20:00 99.7 116 22 139/72 100 Mechanical Ventilator 50 10/25/17 20:00 50 10/25/17 20:00 127 10/25/17 19:30 99.7 10/25/17 19:29 117 43 50 10/25/17 17:25 125 27 50 10/25/17 17:24 100.8 10/25/17 16:00 50 10/25/17 16:00 100.8 119 25 100/61 100 Mechanical Ventilator 50 10/25/17 16:00 114 10/25/17 14:55 112 24 50 10/25/17 12:58 111 25 50 10/25/17 12:00 125 10/25/17 12:00 50 10/25/17 12:00 99.8 128 26 111/62 98 Mechanical Ventilator 50 10/25/17 11:05 133 28 50 10/25/17 10:28 128 123/73 Height (Feet): 5 Height (Inches): 6.00 Weight (Pounds): 200 Objective General Appearance: alert, moderate distress, Chronically Ill Head: normocephalic, atraumatic ENT: hearing grossly normal, normal pharynx, no angioedema, normal voice, injected conjuctiva Neck: full range of motion, supple/symm/no masses Respiratory: chest non-tender, lungs clear, normal breath sounds, no retraction , no accessory muscle use, speaking full sentences, other - tachypnea Cardiovascular no edema, tachycardia Gastrointestinal: normal bowel sounds, non tender, soft, non-distended, no guarding, no rebound Musculoskeletal: back normal, normal range of motion Skin: normal color, no rash, warm/dry, well hydrated Microbiology Date/Time Source Procedure Growth Status 10/23/17 15:15 Blood Blood Culture - Preliminary NO GROWTH AFTER 48 HOURS Resulted 10/23/17 14:55 Blood Blood Culture - Preliminary NO GROWTH AFTER 48 HOURS Resulted 10/23/17 15:00 Sputum Gram Stain - Final Complete 10/23/17 15:00 Sputum Culture - Final Jessica Albicans Usual Upper Respiratory Johnnie Complete 10/23/17 15:00 Urine,Clean Catch Urine Culture - Final NO GROWTH AFTER 48 HOURS Complete Laboratory Tests Test 10/25/17 17:45 10/26/17 04:50 10/26/17 06:02 Vancomycin Level Trough 25.9 ug/mL (5.0-12.0) H White Blood Count 25.3 K/UL (4.8-10.8) *H Red Blood Count 1.69 M/UL (4.70-6.10) L Hemoglobin 5.0 G/DL (14.2-18.0) Hematocrit 14.9 % (42.0-52.0) #L Mean Corpuscular Volume 88 FL (80-99) Mean Corpuscular Hemoglobin 29.6 PG (27.0-31.0) Mean Corpuscular Hemoglobin Concent 33.6 G/DL (32.0-36.0) Red Cell Distribution Width 13.3 % (11.6-14.8) Platelet Count 472 K/UL (150-450) H Mean Platelet Volume 6.5 FL (6.5-10.1) Neutrophils (%) (Auto) % (45.0-75.0) Lymphocytes (%) (Auto) % (20.0-45.0) Monocytes (%) (Auto) % (1.0-10.0) Eosinophils (%) (Auto) % (0.0-3.0) Basophils (%) (Auto) % (0.0-2.0) Differential Total Cells Counted 100 Neutrophils % (Manual) 63 % (45-75) Lymphocytes % (Manual) 17 % (20-45) L Monocytes % (Manual) 9 % (1-10) Eosinophils % (Manual) 0 % (0-3) Basophils % (Manual) 0 % (0-2) Myelocytes % 3 % (0-0) H Band Neutrophils 8 % (0-8) Platelet Estimate Adequate Platelet Morphology Normal Polychromasia 1+ Hypochromasia 1+ Sodium Level 138 MMOL/L (136-145) Potassium Level 4.1 MMOL/L (3.5-5.1) Chloride Level 104 MMOL/L (98-107) Carbon Dioxide Level 19 MMOL/L (21-32) L Anion Gap 15 mmol/L (5-15) Blood Urea Nitrogen 53 mg/dL (7-18) H Creatinine 3.3 MG/DL (0.55-1.30) #H Estimat Glomerular Filtration Rate 23.3 mL/min (>60) Glucose Level 104 MG/DL (74-106) Calcium Level 6.9 MG/DL (8.5-10.1) L Total Bilirubin 0.3 MG/DL (0.2-1.0) Aspartate Amino Transf (AST/SGOT) 628 U/L (15-37) H Alanine Aminotransferase (ALT/SGPT) 431 U/L (12-78) H Alkaline Phosphatase 75 U/L (46-116) Troponin I 0.045 ng/mL (0.000-0.056) Pro-B-Type Natriuretic Peptide 841 pg/mL (0-125) H Total Protein 4.4 G/DL (6.4-8.2) #L Albumin 0.9 G/DL (3.4-5.0) L Globulin 3.5 g/dL Albumin/Globulin Ratio 0.3 (1.0-2.7) L Random Vancomycin Level 22.8 ug/mL Arterial Blood pH 7.201 (7.350-7.450) Arterial Blood Partial Pressure CO2 36.5 mmHg (35.0-45.0) Arterial Blood Partial Pressure O2 294.8 mmHg (75.0-100.0) H Arterial Blood HCO3 14.0 mmol/L (22.0-26.0) L Arterial Blood Oxygen Saturation 98.9 % (92.0-98.0) H Arterial Blood Base Excess -12.8 Dipak Test Positive Current Medications Medications (Trade) Dose Ordered Sig/Olvin Route PRN Reason Start Time Stop Time Status Last Admin Dose Admin Acetaminophen (Tylenol) 650 mg Q4H PRN ORAL Mild Pain/Temp > 100.5 10/26/17 05:50 11/13/17 05:49 Acetaminophen (Tylenol) 650 mg Q4H PRN RECTAL Mild Pain (Pain Scale 1-3) 10/26/17 05:49 11/20/17 05:48 Al Hydroxide/Mg Hydroxide (Mylanta II) 30 ml Q6H PRN GT dyspepsia 10/26/17 05:50 11/10/17 05:49 Albuterol/ Ipratropium (Albuterol/ Ipratropium) 3 ml Q4H PRN HHN Shortness of Breath 10/26/17 07:45 10/31/17 07:44 Aspirin (ASA) 81 mg DAILY GT 10/26/17 09:00 11/12/17 08:59 Atorvastatin Calcium (Lipitor) 10 mg BEDTIME GT 10/26/17 21:00 11/11/17 20:59 Chlorhexidine Gluconate (Pamela-Hex 2%) 1 applic DAILY@1999 TOPIC 10/26/17 20:00 11/23/17 19:59 Dextrose/Sodium Chloride 1,000 ml @ 100 mls/hr Q10H IV 10/26/17 06:00 11/19/17 05:59 10/26/17 07:18 Lorazepam (Ativan 2mg/ml 1ml) 0.5 mg Q4H PRN IV For Anxiety 10/26/17 09:15 10/26/17 17:08 Lorazepam (Ativan 2mg/ml 1ml) 2 mg Q1H PRN IV PERSISTENT AGITATION 10/26/17 06:15 10/28/17 17:08 Metoprolol Tartrate (Lopressor) 25 mg Q12HR GT 10/26/17 09:00 11/13/17 20:59 Mineral Oil (Mineral Oil) 30 ml DAILYPRN PRN GT Constipation 10/26/17 10:45 11/24/17 10:44 Morphine Sulfate (Morphine Sulfate) 4 mg Q2H PRN IVP For Pain 10/26/17 05:50 10/28/17 05:49 Nitroglycerin (Ntg) 0.4 mg Q5MIN X 3 DOSES PRN SL Prn Chest Pain 10/26/17 05:45 11/14/17 17:09 Norepinephrine Bitartrate 8 mg/ Dextrose 250 ml @ 0 mls/hr Q24H IV 10/26/17 07:30 11/25/17 07:29 Ondansetron HCl (Zofran) 4 mg Q6H PRN IVP Nausea & Vomiting 10/26/17 05:51 11/10/17 05:50 Pantoprazole 80 mg/Sodium Chloride 250 ml @ 25 mls/hr Q10H IV 10/26/17 10:00 11/25/17 09:59 Piperacillin Sod/ Tazobactam Sod 3.375 gm/Sodium Chloride 110 ml @ 27.5 mls/hr Q8H IVPB 10/26/17 08:00 11/01/17 07:59 Polyethylene Glycol (Miralax) 17 gm DAILYPRN PRN GT Constipation 10/26/17 17:15 11/23/17 17:09 Promethazine HCl/ Codeine (Phenergan with Codeine) 5 ml Q4H PRN GT For Cough 10/26/17 09:15 11/10/17 17:09 Valproic Acid (Depakene) 250 mg Q12HR@0630,1830 GT 10/26/17 06:30 11/14/17 18:29 10/26/17 07:16 Vancomycin HCl (Vanco rx to dose) 1 ea DAILY PRN MISC Per rx protocol 10/26/17 09:00 11/23/17 17:09 Alessia Akers M.D. Oct 26, 2017 09:54
[2017-10-26] MEDS: Pantoprazole 80 MG in NS 250 ML IV SCH ×2 (10:29→21:34)
[2017-10-26] MEDS ORDERED: Mineral Oil 30ml ud GT PRN (10:45)
[2017-10-26] MEDS ORDERED: Sodium Bicarbonate 50ml Carp ONE (11:11)
[2017-10-26] MEDS ORDERED: Calcium Chloride 10% 10ml carpuject IVP ONE (11:11)
[2017-10-26] MEDS: Meropenem 1 GM in NS 55 ML IVPB SCH ×2 (11:57→21:31)
--- NOTE | 2017-10-26 13:33 | Pre-Procedure Note/Attestation ---
Pre-Procedure Note/Attestation Complete Prior to Procedure Planned Procedure: not applicable Procedure Narrative: egd Indications for Procedure Pre-Operative Diagnosis: active GIB Attestation I attest that I discussed the nature of the procedure; its benefits; risks and complications; and alternatives (and the risks and benefits of such alternatives ), prior to the procedure, with the patient (or the patient's legal event marketing representative). I attest that, if there was a reasonable possibility of needing a blood transfusion, the patient (or the patient's legal event marketing representative) was given the [facility] standardized written summary, pursuant to the [place] Blood Safety Act ([place] Health and Safety Code # 1645, as amended). I attest that I re-evaluated the patient just prior to the surgery and that there has been no change in the patient's H&P, except as documented below: ANGELA WAGONER Oct 26, 2017 13:33
--- NOTE | 2017-10-26 13:34 | GI Progress Note ---
Assessment/Plan Assessment/Plan patient has active upper GIB. required 3 units of blood transfusions. Need an emergency EGD. No family available at this time to consent Objective Last 24 Hour Vital Signs Date Time Temp Pulse Resp B/P (MAP) Pulse Ox O2 Delivery O2 Flow Rate FiO2 10/26/17 13:16 99 26 100 10/26/18 12:00 92.9 90 20 129/48 88 Mechanical Ventilator 50 18 12:00 95 10/26/17 12:00 50 18 11:30 93 20 127/48 87 Mechanical Ventilator 50 10/26/17 11:00 92 20 115/45 86 Mechanical Ventilator 50 10/26/17 10:38 94 26 100 18 10:00 91 20 139/47 88 Mechanical Ventilator 50 10/26/17 09:30 90 20 119/47 85 Mechanical Ventilator 50 10/26/17 09:12 89 26 100 10/26/17 09:00 98.5 90 20 114/42 100 Mechanical Ventilator 50 10/26/17 09:00 90 119/47 10/26/17 08:30 100 17 116/93 99 Mechanical Ventilator 50 10/26/17 08:00 108 18 132/88 100 Mechanical Ventilator 50 18 08:00 50 10/26/18 08:00 114 10/26/17 07:54 100 18 07:30 64 18 46/28 90 Mechanical Ventilator 50 10/26/17 07:30 46/28 18 07:00 98.1 97 22 147/83 100 Mechanical Ventilator 50 10/26/17 06:42 100 10/26/18 06:30 72 22 45/25 100 Mechanical Ventilator 50 18 06:00 88 23 90/58 100 Mechanical Ventilator 50 18 05:30 98.1 97 22 158/60 100 Mechanical Ventilator 50 10/26/18 05:08 118 24 100 16/18 05:00 98.2 116 21 167/64 100 Mechanical Ventilator 50 10/26/17 04:00 98.1 102 24 128/79 100 Mechanical Ventilator 50 10/26/18 04:00 93 16/18 04:00 50 18 02:39 92 30 50 10/26/18 01:25 96 31 50 18 00:00 50 216/18 00:00 99 10/26/17 00:00 98.1 102 24 128/79 100 Mechanical Ventilator 50 10/25/17 23:25 110 31 50 10/25/17 22:28 97.5 10/25/17 22:28 97.5 10/25/17 21:29 99.9 10/25/17 21:29 99.9 10/25/17 21:24 108 35 50 10/25/17 20:17 116 139/72 10/25/17 20:07 99.8 10/25/17 20:00 99.7 116 22 139/72 100 Mechanical Ventilator 50 10/25/17 20:00 50 10/25/17 20:00 127 10/25/17 19:30 99.7 10/25/17 19:29 117 43 50 10/25/17 17:25 125 27 50 10/25/17 17:24 100.8 10/25/17 16:00 50 10/25/17 16:00 100.8 119 25 100/61 100 Mechanical Ventilator 50 10/25/17 16:00 114 10/25/17 14:55 112 24 50 Intake and Output 10/25/17 10/26/17 19:00 07:00 Intake Total 804.1 ml 1128.0 ml Output Total 250 ml Balance 554.1 ml 1128.0 ml Free Water 100 ml IV Total 704.1 ml 1128.0 ml Output Urine Total 250 ml # Bowel Movements 5 3 Laboratory Tests Test 10/25/17 17:45 10/26/17 04:50 10/26/17 06:02 Vancomycin Level Trough 25.9 ug/mL (5.0-12.0) H White Blood Count 25.3 K/UL (4.8-10.8) *H Red Blood Count 1.69 M/UL (4.70-6.10) L Hemoglobin 5.0 G/DL (14.2-18.0) Hematocrit 14.9 % (42.0-52.0) #L Mean Corpuscular Volume 88 FL (80-99) Mean Corpuscular Hemoglobin 29.6 PG (27.0-31.0) Mean Corpuscular Hemoglobin Concent 33.6 G/DL (32.0-36.0) Red Cell Distribution Width 13.3 % (11.6-14.8) Platelet Count 472 K/UL (150-450) H Mean Platelet Volume 6.5 FL (6.5-10.1) Neutrophils (%) (Auto) % (45.0-75.0) Lymphocytes (%) (Auto) % (20.0-45.0) Monocytes (%) (Auto) % (1.0-10.0) Eosinophils (%) (Auto) % (0.0-3.0) Basophils (%) (Auto) % (0.0-2.0) Differential Total Cells Counted 100 Neutrophils % (Manual) 63 % (45-75) Lymphocytes % (Manual) 17 % (20-45) L Monocytes % (Manual) 9 % (1-10) Eosinophils % (Manual) 0 % (0-3) Basophils % (Manual) 0 % (0-2) Myelocytes % 3 % (0-0) H Band Neutrophils 8 % (0-8) Platelet Estimate Adequate Platelet Morphology Normal Polychromasia 1+ Hypochromasia 1+ Sodium Level 138 MMOL/L (136-145) Potassium Level 4.1 MMOL/L (3.5-5.1) Chloride Level 104 MMOL/L (98-107) Carbon Dioxide Level 19 MMOL/L (21-32) L Anion Gap 15 mmol/L (5-15) Blood Urea Nitrogen 53 mg/dL (7-18) H Creatinine 3.3 MG/DL (0.55-1.30) #H Estimat Glomerular Filtration Rate 23.3 mL/min (>60) Glucose Level 104 MG/DL (74-106) Calcium Level 6.9 MG/DL (8.5-10.1) L Total Bilirubin 0.3 MG/DL (0.2-1.0) Aspartate Amino Transf (AST/SGOT) 628 U/L (15-37) H Alanine Aminotransferase (ALT/SGPT) 431 U/L (12-78) H Alkaline Phosphatase 75 U/L (46-116) Troponin I 0.045 ng/mL (0.000-0.056) Pro-B-Type Natriuretic Peptide 841 pg/mL (0-125) H Total Protein 4.4 G/DL (6.4-8.2) #L Albumin 0.9 G/DL (3.4-5.0) L Globulin 3.5 g/dL Albumin/Globulin Ratio 0.3 (1.0-2.7) L Random Vancomycin Level 22.8 ug/mL Arterial Blood pH 7.201 (7.350-7.450) Arterial Blood Partial Pressure CO2 36.5 mmHg (35.0-45.0) Arterial Blood Partial Pressure O2 294.8 mmHg (75.0-100.0) H Arterial Blood HCO3 14.0 mmol/L (22.0-26.0) L Arterial Blood Oxygen Saturation 98.9 % (92.0-98.0) H Arterial Blood Base Excess -12.8 Dipak Test Positive Height (Feet): 5 Height (Inches): 6.00 Weight (Pounds): 200 ANGELA WAGONER Oct 26, 2017 13:34
[2017-10-26] MEDS ORDERED: Phenylephrine 10mg/ml Vial ONE (14:00)
[2017-10-26] MEDS ORDERED: Midazolam 2mg/2ml Inj ONE (14:00)
[2017-10-26] MEDS ORDERED: Zemuron 50mg/5ml Inj IV ONE (14:00)
--- NOTE | 2017-10-26 14:10 | Cardiology Report ---
APPROVED REPORT EKG Measurement Heart [id number] Sinus tachycardia with premature supraventricular complexes Nonspecific ST abnormality Abnormal ECG
[2017-10-26] MEDS: Phenylephrine 50 MG in D5W 245 ML IV SCH ×2 (14:15→21:33)
--- NOTE | 2017-10-26 14:20 | Endoscopy Procedure Note ---
Endoscopy Procedure Note General Indication for Procedure: gib Procedures Performed: EGD Operative Findings/Diagnosis: active GIB, ulcer Specimen: none Pt Tolerated Procedure Well: Yes Estimated Blood Loss: none Anesthesia Anesthesiologist: darcy Anesthesia: MAC Inserted Devices Implant(s) used?: No GI Core Measures 50 yrs or older w/o bx or poly: Not Applicable 10yrs. F/U not recommended: Not Applicable ANGELA WAGONER Oct 26, 2017 14:20
[2017-10-26 14:54] LABS: HEMOGLOBIN 8.7 G/DL (14.2-18.0); MEAN CORPUSCULAR VOLUME 91 FL (80-99); PLATELET COUNT 326 K/UL (150-450); RED BLOOD COUNT 2.96 M/UL (4.70-6.10); RED CELL DISTRIBUTION WIDTH 14.8 % (11.6-14.8)
[2017-10-26 14:56] LABS: WHITE BLOOD COUNT 35.3 K/UL (4.8-10.8)
--- NOTE | 2017-10-26 14:56 | Consultation ---
Consult Note Consult Note asked to evaluate at the request of Dr Martines for worsenning renal failure- patient been managed for the following since admit 15 days ago: (1) Acute respiratory failure, had trach (2) Pneumonia (3) Sepsis (4) Dementia (5) Epileptic seizure, generalized (6) Feeding by G-tube Patient was coded twice since last night , with massive GI bleed, currently in ICU on 2 pressors , been transfused and fluid challenged o/E hypotensive Trendelenberg tachycardic . Assessment/Plan staus: JULIA , due to Shock , Hemorrhagic / Septic Bradycardic - Vfib cardiac arrest 10/26 likely 2ry to hemorrhagic shock (drop Hgb 10.8 to 5) - GIB- Fever, ongoing Leukocytosis, worsening after code E.coli UTI w/ bacteremia Acute hypoxic resp failure- s/p Trach Plan: Poor Prognosis- Hemodynamic support monitor urine out put and Renal parameters dialysis treatment as possible ! YVES SINHA Oct 26, 2017 14:56
--- NOTE | 2017-10-26 15:01 | Anethesia Preoperative Eval ---
Anesthesia Pre-op PMH/ROS General Date of Evaluation: Oct 26, 2017 Time of Evaluation: 13:45 Anesthesiologist: ramon ASA Score: ASA 4 - emergency Mallampati Score Class I : Soft palate, uvula, fauces, pillars visible Class II: Soft palate, uvula, fauces visible Class III: Soft palate, base of uvula visible Class IV: Only hard plate visible Mallampati Classification: Class IV Surgeon: ghassan Diagnosis: active gi bleed Surgical Procedure: egd Anesthesia History: none Social History: smoking - former smoker Family History: no anesthesia problems Allergies: Coded Allergies: NO KNOWN ALLERGIES (Unverified Allergy, Unknown, 09/03/15) Medications: see eMAR Past Medical History Cardiovascular: Reports: HTN Gastrointestinal/Genitourinary: Reports: other - dysphagia, g-tube Neurologic/Psychiatric: Reports: CVA, other - seizure disorder, obstructive hydrocephalus Hematology/Immune: Reports: anemia Musculoskeletal/Integumentary: Reports: OA Anesthesia Pre-op Phys. Exam Physician Exam Constitutional: NAD Neurologic: other - cva Cardiovascular: other - on intravenous infusions for cardiovascular support ( levophed) Respiratory: other Gastrointestinal: other - g-tube, active gi bleed Airway Exam Mallampati Score: Class IV MO: limited Neck: tracheostomy TMD: 1fb ROM: limited Anesthesia Pre-op A/P Labs Hematology Test 10/26/17 04:50 10/26/17 14:40 White Blood Count 25.3 K/UL (4.8-10.8) *H Pending Red Blood Count 1.69 M/UL (4.70-6.10) L Pending Hemoglobin 5.0 G/DL (14.2-18.0) Pending Hematocrit 14.9 % (42.0-52.0) #L Pending Mean Corpuscular Volume 88 FL (80-99) Pending Mean Corpuscular Hemoglobin 29.6 PG (27.0-31.0) Pending Mean Corpuscular Hemoglobin Concent 33.6 G/DL (32.0-36.0) Pending Red Cell Distribution Width 13.3 % (11.6-14.8) Pending Platelet Count 472 K/UL (150-450) H Pending Mean Platelet Volume 6.5 FL (6.5-10.1) Pending Neutrophils (%) (Auto) % (45.0-75.0) Pending Lymphocytes (%) (Auto) % (20.0-45.0) Pending Monocytes (%) (Auto) % (1.0-10.0) Pending Eosinophils (%) (Auto) % (0.0-3.0) Pending Basophils (%) (Auto) % (0.0-2.0) Pending Differential Total Cells Counted 100 Neutrophils % (Manual) 63 % (45-75) Lymphocytes % (Manual) 17 % (20-45) L Monocytes % (Manual) 9 % (1-10) Eosinophils % (Manual) 0 % (0-3) Basophils % (Manual) 0 % (0-2) Myelocytes % 3 % (0-0) H Band Neutrophils 8 % (0-8) Platelet Estimate Adequate Platelet Morphology Normal Polychromasia 1+ Hypochromasia 1+ Chemistry Test 10/26/17 04:50 Sodium Level 138 MMOL/L (136-145) Potassium Level 4.1 MMOL/L (3.5-5.1) Chloride Level 104 MMOL/L (98-107) Carbon Dioxide Level 19 MMOL/L (21-32) L Anion Gap 15 mmol/L (5-15) Blood Urea Nitrogen 53 mg/dL (7-18) H Creatinine 3.3 MG/DL (0.55-1.30) #H Estimat Glomerular Filtration Rate 23.3 mL/min (>60) Glucose Level 104 MG/DL (74-106) Calcium Level 6.9 MG/DL (8.5-10.1) L Total Bilirubin 0.3 MG/DL (0.2-1.0) Aspartate Amino Transf (AST/SGOT) 628 U/L (15-37) H Alanine Aminotransferase (ALT/SGPT) 431 U/L (12-78) H Alkaline Phosphatase 75 U/L (46-116) Troponin I 0.045 ng/mL (0.000-0.056) Pro-B-Type Natriuretic Peptide 841 pg/mL (0-125) H Total Protein 4.4 G/DL (6.4-8.2) #L Albumin 0.9 G/DL (3.4-5.0) L Globulin 3.5 g/dL Albumin/Globulin Ratio 0.3 (1.0-2.7) L Risk Assessment & Plan Assessment: [id number] Plan: mac Status Change Before Surgery: No Pre-Antibiotics Drug: JAZ Paulino Oct 26, 2017 15:01
--- NOTE | 2017-10-26 15:12 | Immediate Post-Op Evaluation ---
Immediate Post-Op Evalulation Immediate Post-Op Evalulation Procedure: egd Date of Evaluation: Oct 26, 2017 Time of Evaluation: 14:42 IV Fluids: 1000ml 0.9ns Blood Products: none Estimated Blood Loss: less than 100ml Blood Pressure Systolic: 92 Blood Pressure Diastolic: 52 Pulse Rate: 99 Respiratory Rate: 18 O2 Sat by Pulse Oximetry: 88 Temperature (Fahrenheit): 92.9 Pain Score (1-10): 0 Nausea: No Vomiting: No Complications none Patient Status: awake, reacts, patent Hydration Status: adequate Drug: JAZ Paulino Oct 26, 2017 15:12
--- NOTE | 2017-10-26 15:17 | 48 Hour Post Anesthesia Eval ---
Post Anesthesia Evaluation Procedure: egd Date of Evaluation: Oct 26, 2017 Time of Evaluation: 15:13 Blood Pressure Systolic: 98 0: 52 Pulse Rate: 99 Respiratory Rate: 18 Temperature (Fahrenheit): 92.9 O2 Sat by Pulse Oximetry: 88 Airway: patent Nausea: No Vomiting: No Pain Intensity: 0 Hydration Status: adequate Cardiopulmonary Status: on vasopressor intravenous infusion Mental Status/LOC: patient returned to baseline Post-Anesthesia Complications: none Follow-up care needed: N/A JAZ CHAVIS Oct 26, 2017 15:17
[2017-10-26] MEDS ORDERED: Miralax 17gm pkt GT PRN (17:15)
--- NOTE | 2017-10-26 18:15 | General Progress Note ---
Progress Note Progress Note Surgery: called urgently to bedside. trach balloon noted to be insufficient and not functional. would not hold volume. air leak noted and could not ventilate patient properly. RR in 30's. vent volumes 100's. Fresh trach and very concerning given need for exchange. patient prepped and all equipment at bedside. trach sutures removed. patient disconnected from vent an using bogie as guide old non functional trach removed and new 8f trach placed without complication. balloon inflated and patient placed on ventilator. respiratory rate improved soon after and volumes sufficient. patient tolerated well without desaturation. will monitor. cxr ordered Darren Esteban Oct 26, 2017 18:15
--- NOTE | 2017-10-26 20:27 | Pulmonolgy Critical Care Note ---
Critical Care - Asmt/Plan Assessment/Plan: ASSESSMENT s/p cardiac arrest ( due to acute GI hemorrhage on 10/26 acute GI hemorrhage hypovolemic shock ( due to GI hemorrhage) acute anemia of blood loss, requiring 3 u PRBC s/p trach 10/23 trach malfunctioning, s/p trach exchange 10/26 acute renal failure acute hypoxemic RF requiring BiPAP, unable to wean ( s/p trach) severe sepsis with E coli bacteremia ( s/p Rx) E coli UTI ( s/p Rx) probably PNA acute bronchitis possible influenza ( s/p Rx) hematuria lactic acidosis 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 seizure disorder HTN CAD with hx of [place] dysphagia, s/p PEG dementia R lateral malleolus DTI PLAN OF CARE ICU hemodynamic support, off Phenylephrine, on Levophed, titrate to keep SBP above 90 IVF s/p trach exchange due to leak by surgeon, currently trach functional ABG and CXR in am Pulmonary toilet with HHN, suction as needed Protonix gtt s/p emergent EGD today, ulcer noted GI follows s/p 3 u PRBC, HH up monitor counts, monitor for active bleeding strict asp precautions, s/p PEG, currently NPO a/emetic prn bowel regimen nephro consult appreciated on IVF monitor renal parameters, correct lytes as needed, avoid nephrotoxic renal US done earlier with normal bilateral kidney echogenicity and no hydro ID follows blood cx + E mitchel, urine cx + E coli, s/p rx Influenza negative ( but rapid test with only sensitivity 60-65%, by history high suspicion for flu), s/p Tamiflu empiric abx leukocytosis worsening ECHO with pEF 60-65% CTA no PE hold ASA for now due to acute GI bleeding continue BB and statin troponin negative urologist seen and evaluated for hematuria Cervantes seizure precautions, on Depakote , monitor levels condition critical and guarded overall prognosis poor case discussed and evaluated by supervising physician Note: patient was seen earlier in the day, and then periodically with orders and ongoing communication with doctors and nurse note done later and does not reflect actual time the patient was seen Critical Care - Objective Last 24 Hour Vital Signs Date Time Temp Pulse Resp B/P (MAP) Pulse Ox O2 Delivery O2 Flow Rate FiO2 10/26/17 19:30 98.4 94 36 108/58 93 Mechanical Ventilator 100 10/26/17 19:15 105 35 100 2/16/18 19:00 94 36 117/56 93 Mechanical Ventilator 100 2/16/18 19:00 117/54 2/16/18 18:30 100 30 100/53 93 Mechanical Ventilator 100 2/16/18 18:00 90/37 2/16/18 18:00 98.8 90 33 90/54 98 Mechanical Ventilator 100 2/16/18 17:30 98 30 96/37 99 Mechanical Ventilator 100 2/16/18 17:01 100 34 100 2/16/18 17:00 72/48 2/16/18 17:00 99 33 96/37 99 Mechanical Ventilator 100 2/16/18 17:00 99 30 72/48 99 Mechanical Ventilator 100 2/16/18 16:30 101 30 157/118 99 Mechanical Ventilator 100 2/16/18 16:00 69/45 2/16/18 16:00 97 30 69/45 99 Mechanical Ventilator 100 2/16/18 16:00 97 2/16/18 16:00 100 2/16/18 15:30 98 22 139/114 99 Mechanical Ventilator 100 2/16/18 15:17 199.2 99 18 88 2/16/18 15:12 199.2 99 18 88 2/16/18 15:06 100 29 100 2/16/18 15:00 98.5 97 20 160/119 98 Mechanical Ventilator 50 2/16/18 15:00 160/119 2/16/18 14:30 98 26 153/113 99 Mechanical Ventilator 50 2/16/18 14:15 93 46/32 2/16/18 14:15 46/32 2/16/18 14:00 46/32 2/16/18 14:00 91 20 46/32 88 Mechanical Ventilator 50 2/16/18 13:30 91 22 62/34 85 Mechanical Ventilator 50 2/16/18 13:16 99 26 100 2/16/18 13:00 99 22 111/47 85 Mechanical Ventilator 50 2/16/18 13:00 111/47 2/16/18 12:30 98 25 126/44 80 Mechanical Ventilator 50 2/16/18 12:00 92.9 90 20 129/48 88 Mechanical Ventilator 50 2/16/18 12:00 95 2/16/18 12:00 50 2/16/18 11:57 122/45 2/16/18 11:30 93 20 127/48 87 Mechanical Ventilator 50 2/16/18 11:00 92 20 115/45 86 Mechanical Ventilator 50 2/16/18 11:00 115/45 2/16/18 10:38 94 26 100 2/16/18 10:00 91 20 139/47 88 Mechanical Ventilator 50 2/16/18 10:00 131/49 2/16/18 09:30 90 20 119/47 85 Mechanical Ventilator 50 2/16/18 09:12 89 26 100 2/16/18 09:00 98.5 90 20 114/42 100 Mechanical Ventilator 50 2/16/18 09:00 126/44 2/16/18 09:00 90 119/47 2/16/18 08:30 100 17 116/93 99 Mechanical Ventilator 50 2/16/18 08:00 108 18 132/88 100 Mechanical Ventilator 50 2/16/18 08:00 50 2/16/18 08:00 114 2/16/18 08:00 210/78 2/16/18 07:54 100 2/16/18 07:30 64 18 46/28 90 Mechanical Ventilator 50 2/16/18 07:30 46/28 2/16/18 07:00 98.1 97 22 147/83 100 Mechanical Ventilator 50 2/16/18 06:42 100 2/16/18 06:30 72 22 45/25 100 Mechanical Ventilator 50 2/16/18 06:00 88 23 90/58 100 Mechanical Ventilator 50 2/16/18 05:30 98.1 97 22 158/60 100 Mechanical Ventilator 50 2/16/18 05:08 118 24 100 2/16/18 05:00 98.2 116 21 167/64 100 Mechanical Ventilator 50 2/16/18 04:00 98.1 102 24 128/79 100 Mechanical Ventilator 50 2/16/18 04:00 93 2/16/18 04:00 50 2/16/18 02:39 92 30 50 2/16/18 01:25 96 31 50 2/16/18 00:00 50 2/16/18 00:00 99 2/16/18 00:00 98.1 102 24 128/79 100 Mechanical Ventilator 50 2/15/18 23:25 110 31 50 2/15/18 22:28 97.5 2/15/18 22:28 97.5 2/15/18 21:29 99.9 10/25/17 21:29 99.9 10/25/17 21:24 108 35 50 Status: other - letharghic Condition: critical, grave HEENT: atraumatic, normocephalic Neck: trach - Portex #8, secretions thick, gongora, moderate Lungs: clear Heart: HR/BP unstable, regular Abdomen: soft, non-tender, active bowel sounds, feeding tube Extremities: no C/C/E Critical Care - Subjective ROS Limited/Unobtainable: Yes Interval Events: s/p cardiac arrest earlier in am due to acute GI hemorrhage fluid challenge given started on double pressors levophed continue and titrated and phenylephrine added HH down to 5.0/14.9 worsening leukocytosis -25 acute renal failure- 53/3.3 ABG with acidosis despite FiO2 100% and PEEP5 s/p emergency EGD later during the day on Protonix gtt in the afternoon noted trach balloon to be insufficient and not functional. would not hold volumes, air leak noted and could not ventilate patient properly, tachypneic, volumes in 100s surgeon changed trach, currently trach functional, getting volumes , RR improved IV Access: central - RIJ intact EKG Rhythm: Sinus Rhythm FI02: 100 Vent Support Breath Rate: 18 Vent Support Mode: AC Vent Tidal Volume: 550 Sputum Amount: Moderate PEEP: 10.0 PIP: 26 Fluids: D51/2 NS at 100 Drips: Protonix gtt at 25 ml/hr, Levophed at 25 mcg/min Tube Feeding Amount: 20 I&O: Intake and Output 10/25/17 10/26/17 19:00 07:00 Intake Total 804.1 ml 1128.0 ml Output Total 250 ml Balance 554.1 ml 1128.0 ml Free Water 100 ml IV Total 704.1 ml 1128.0 ml Output Urine Total 250 ml # Bowel Movements 5 3 CXR: 10/26 -Interim placement right subclavian central venous catheter, tip which projects at the level of the cavoatrial junction. No gross pneumothorax demonstrated. There is persistent and increased elevation of the right hemidiaphragm. There is right basilar and right perihilar atelectasis and possibly minimal consolidation. Left lung and bilateral pleural spaces remain clear. Normal heart size. Tracheostomy remains ET-Tube: 8.0 ET Position: 24 [place] (Pippa Novak NP Oct 26, 2017 20:27
--- NOTE | 2017-10-26 21:00 | Procedure Note ---
DATE OF PROCEDURE: 10/26/2017 PROCEDURE: Upper endoscopy with hemostasis. ANESTHESIA: Per Dr. Mace. REFERRING PHYSICIAN: Sissy Martines M.D. INSTRUMENT: Olympus adult flexible upper endoscope. INDICATION: Active upper GI bleeding. The procedure, risks, benefits, and possible consequences, including hemorrhage, aspiration, perforation and infection, and alternative treatments, were explained to the patient/legal guardian by Dr. Jordy Campos and the patient/legal guardian understood and accepted these risks. DESCRIPTION OF PROCEDURE: Before starting this procedure, I have to mention this patient was coded three times today. He is actively bleeding, which needed G-tube lavage at the bedside as he has active blood in the stomach. The patient on pressor, maxed on Levophed. We had to give him 3 units of blood to stabilize him to just getting blood pressure enough to put the scope in. Endoscopy showed evidence of a large ulcer next to the G-tube, but from the G-tube with a vessel sitting in the middle of it, relatively big sized vessel. There was a lot of blood clots seen in the stomach. Then now, we started our endoscopic hemostasis procedure. First we injected 4 mL of 1:10,000 dilution of epinephrine was injected around ulcer and two hemoclips were used to clip the artery without any complication. There was no active bleeding from this procedure. SUMMARY OF FINDINGS: Active bleeding from an ulcer next to the G-tube with a visible vessel status post hemostasis using two hemoclips and 4 mL of epinephrine 1:10,000 dilution. RECOMMENDATIONS: Unfortunately, the patient has a poor prognosis, already three times coded, currently one pressor maxed out, second pressor is on the way. We will recommend monitoring closely. Continue on Protonix drip. Keep the patient NPO. Monitor hemoglobin and hematocrit and transfuse as needed to keep hemoglobin above 7. I want to thank Dr. Martines for this kind referral. Jordy Campos M.D. DR: Yuliana JOB#: [id number] CC: Sissy Martines M.D.; Fax#: [phone]
[2017-10-26] MEDS: Dyna-Hex 2% Top Sol 2oz TOPIC SCH (21:27)
[2017-10-27] VITALS (45 sets, daily range): BP systolic 77–137; BP diastolic 45–79
[2017-10-27 00:29] LABS: APPEARANCE,URINE VERY CLOUDY; BILIRUBIN, URINE NEGATIVE (NEGATIVE); GLUCOSE, URINE (UA) NEGATIVE (NEGATIVE); KETONES,URINE NEGATIVE (NEGATIVE); LEUKOCYTE ESTERASE ,URINE 2+ (NEGATIVE); NITRITE,URINE POSITIVE (NEGATIVE); PH,URINE 5 (4.5-8.0); PROTEIN,URINE 3+ (NEGATIVE); UROBILINOGEN,URINE NORMAL MG/DL (0.0-1.0)
[2017-10-27 00:31] LABS: COLOR,URINE BROWN
[2017-10-27] MEDS: D5 1/2NS 1,000 ML IV SCH ×3 (02:28→11:58)
[2017-10-27 05:22] LABS: HEMATOCRIT 27.3 % (42.0-52.0); HEMOGLOBIN 9.2 G/DL (14.2-18.0); MEAN CORPUSCULAR VOLUME 89 FL (80-99); PLATELET COUNT 316 K/UL (150-450); RED BLOOD COUNT 3.08 M/UL (4.70-6.10); RED CELL DISTRIBUTION WIDTH 14.4 % (11.6-14.8)
[2017-10-27 05:27] LABS: WHITE BLOOD COUNT 41.6 K/UL (4.8-10.8)
[2017-10-27 05:50] LABS: ALANINE AMINOTRANSFERASE 2038 U/L (12-78); ALBUMIN/GLOBULIN RATIO 0.3 (1.0-2.7); ALKALINE PHOSPHATASE 79 U/L (46-116); ANION GAP 16 mmol/L (5-15); ASPARTATE AMINO TRANSFERASE 2235 U/L (15-37); BILIRUBIN,TOTAL 0.4 MG/DL (0.2-1.0); BLOOD UREA NITROGEN 74 mg/dL (7-18); CALCIUM 6.7 MG/DL (8.5-10.1); CARBON DIOXIDE 18 MMOL/L (21-32); CHLORIDE 108 MMOL/L (98-107); CREATINE KINASE 668 U/L (26-308); CREATININE 4.7 MG/DL (0.55-1.30); GAMMA GLUTAMYL TRANSPEPTIDASE 138 U/L (5-85); PHOSPHORUS 6.6 MG/DL (2.5-4.9); POTASSIUM 4.7 MMOL/L (3.5-5.1); SODIUM 142 MMOL/L (136-145)
[2017-10-27] MEDS: Pantoprazole 80 MG in NS 250 ML IV SCH ×3 (06:02→21:46)
[2017-10-27] MEDS: Valproic Acid 250mg/5ml Liquid GT SCH ×2 (06:13→18:11)
--- NOTE | 2017-10-27 08:54 | Nephrology Progress Note ---
Assessment/Plan Assessment JULIA , due to Shock , Hemorrhagic / Septic Shock liver no further GI bleeding High Troponin: NC Bradycardic - Vfib cardiac arrest 10/26 likely 2ry to hemorrhagic shock (drop Hgb 10.8 to 5) - GIB- Fever, ongoing Leukocytosis, worsening after code E.coli UTI w/ bacteremia Acute hypoxic resp failure- s/p Trach . Plan Plan: Poor Prognosis- Hemodynamic support monitor urine out put and Renal parameters Albumin bollous Hydrocortison aim to taper pressors Subjective ROS Limited/Unobtainable: Yes Constitutional: Reports: malaise Objective Objective Last 24 Hour Vital Signs Date Time Temp Pulse Resp B/P (MAP) Pulse Ox O2 Delivery O2 Flow Rate FiO2 10/27/17 08:00 80 10/27/17 08:00 102 33 118/58 100 Mechanical Ventilator 100 10/27/17 08:00 103 10/27/17 08:00 80 10/27/17 07:30 99.6 103 28 118/57 100 Mechanical Ventilator 100 10/27/17 07:00 104 30 113/45 100 Mechanical Ventilator 100 10/27/17 07:00 100/40 10/27/18 06:34 100 29 100 10/27/18 06:30 104 30 100/50 100 Mechanical Ventilator 100 18 06:04 70/40 18 06:02 77/45 18 06:00 104 30 80/45 100 Mechanical Ventilator 100 18 05:30 106 30 83/50 100 Mechanical Ventilator 100 18 05:16 106 34 100 10/27/17 05:00 76/50 18 05:00 104 30 77/45 100 Mechanical Ventilator 100 18 04:30 104 30 112/60 100 Mechanical Ventilator 100 10/27/17 04:00 99.5 114 26 114/60 100 Mechanical Ventilator 100 18 04:00 80/50 10/27/18 04:00 104 10/27/18 04:00 100 18 03:30 104 26 110/65 100 Mechanical Ventilator 100 18 03:09 126 35 100 10/27/18 03:00 110 30 114/60 100 Mechanical Ventilator 100 10/27/17 03:00 117/59 10/27/17 02:30 112 26 118/65 100 Mechanical Ventilator 100 2/17/18 02:30 85/45 2/17/18 02:00 106 26 117/65 100 Mechanical Ventilator 100 2/17/18 01:30 106 36 108/58 93 Mechanical Ventilator 100 2/17/18 01:24 105 28 100 2/17/18 01:00 113 36 103/56 93 Mechanical Ventilator 100 2/17/18 00:30 104 36 108/58 93 Mechanical Ventilator 100 2/17/18 00:00 104 2/17/18 00:00 104 36 106/58 93 Mechanical Ventilator 100 2/17/18 00:00 100 2/17/18 00:00 99.5 98 36 108/58 93 Mechanical Ventilator 100 2/16/18 23:30 103 30 105/81 100 Mechanical Ventilator 100 2/16/18 23:08 103 34 100 2/16/18 23:00 101 32 100/60 100 Mechanical Ventilator 100 2/16/18 22:30 103 30 108/60 93 Mechanical Ventilator 100 2/16/18 22:00 110 34 108/54 93 Mechanical Ventilator 100 2/16/18 21:33 99 85/55 2/16/18 21:30 100 36 108/58 93 Mechanical Ventilator 100 2/16/18 21:29 99 85/55 2/16/18 21:22 112 32 100 2/16/18 21:00 99 31 108/54 100 Mechanical Ventilator 100 2/16/18 21:00 105/81 2/16/18 21:00 100 2/16/18 20:30 98 36 108/58 93 Mechanical Ventilator 100 2/16/18 20:00 110/61 2/16/18 20:00 98 2/16/18 20:00 90 30 106/50 93 Mechanical Ventilator 100 2/16/18 19:30 98.4 94 36 108/58 93 Mechanical Ventilator 100 2/16/18 19:15 105 35 100 2/16/18 19:00 94 36 117/56 93 Mechanical Ventilator 100 2/16/18 19:00 117/54 2/16/18 18:30 100 30 100/53 93 Mechanical Ventilator 100 2/16/18 18:00 90/37 2/16/18 18:00 98.8 90 33 90/54 98 Mechanical Ventilator 100 2/16/18 17:30 98 30 96/37 99 Mechanical Ventilator 100 2/16/18 17:01 100 34 100 2/16/18 17:00 72/48 2/16/18 17:00 99 33 96/37 99 Mechanical Ventilator 100 2/16/18 17:00 99 30 72/48 99 Mechanical Ventilator 100 2/16/18 16:30 101 30 157/118 99 Mechanical Ventilator 100 2/16/18 16:00 69/45 2/16/18 16:00 97 30 69/45 99 Mechanical Ventilator 100 2/16/18 16:00 97 2/16/18 16:00 100 2/16/18 15:30 98 22 139/114 99 Mechanical Ventilator 100 2/16/18 15:17 199.2 99 18 88 2/16/18 15:12 199.2 99 18 88 2/16/18 15:06 100 29 100 2/16/18 15:00 98.5 97 20 160/119 98 Mechanical Ventilator 50 2/16/18 15:00 160/119 2/16/18 14:30 98 26 153/113 99 Mechanical Ventilator 50 2/16/18 14:15 93 46/32 2/16/18 14:15 46/32 2/16/18 14:00 46/32 2/16/18 14:00 91 20 46/32 88 Mechanical Ventilator 50 2/16/18 13:30 91 22 62/34 85 Mechanical Ventilator 50 2/16/18 13:16 99 26 100 2/16/18 13:00 99 22 111/47 85 Mechanical Ventilator 50 2/16/18 13:00 111/47 2/16/18 12:30 98 25 126/44 80 Mechanical Ventilator 50 2/16/18 12:00 92.9 90 20 129/48 88 Mechanical Ventilator 50 2/16/18 12:00 95 2/16/18 12:00 50 2/16/18 11:57 122/45 2/16/18 11:30 93 20 127/48 87 Mechanical Ventilator 50 2/16/18 11:00 92 20 115/45 86 Mechanical Ventilator 50 2/16/18 11:00 115/45 2/16/18 10:38 94 26 100 2/16/18 10:00 91 20 139/47 88 Mechanical Ventilator 50 2/16/18 10:00 131/49 2/16/18 09:30 90 20 119/47 85 Mechanical Ventilator 50 2/16/18 09:12 89 26 100 10/26/17 09:00 98.5 90 20 114/42 100 Mechanical Ventilator 50 10/26/17 09:00 126/44 10/26/17 09:00 90 119/47 Intake and Output 10/26/17 10/27/17 19:00 07:00 Intake Total 2524.11 ml 1692.87 ml Output Total 95 ml 520 ml Balance 2429.11 ml 1172.87 ml IV Total 1964.11 ml 1692.87 ml Blood Product 560 ml Output Urine Total 95 ml 520 ml Laboratory Tests 10/26/17 14:40: White Blood Count 35.3*H, Red Blood Count 2.96L, Hemoglobin 8.7#L, Hematocrit 27.0#L, Mean Corpuscular Volume 91, Mean Corpuscular Hemoglobin 29.5, Mean Corpuscular Hemoglobin Concent 32.2, Red Cell Distribution Width 14.8, Platelet Count 326, Mean Platelet Volume 6.3L, Neutrophils (%) (Auto) , Lymphocytes (%) ( Auto) , Monocytes (%) (Auto) , Eosinophils (%) (Auto) , Basophils (%) (Auto) , Differential Total Cells Counted 100, Neutrophils % (Manual) 75, Lymphocytes % ( Manual) 14L, Monocytes % (Manual) 6, Eosinophils % (Manual) 0, Basophils % ( Manual) 0, Band Neutrophils 5, Nucleated Red Blood Cells 1, Platelet Estimate Adequate, Platelet Morphology Normal, Polychromasia 1+, Anisocytosis 1+, C- Reactive Protein, Quantitative 11.8H 10/26/17 22:00: Urine Color Brown, Urine Appearance Very cloudy, Urine pH 5, Urine Specific [place] 1.015, Urine Protein 3+H, Urine Glucose (UA) Negative, Urine Ketones Negative, Urine Occult Blood 5+H, Urine Nitrite PositiveH, Urine Bilirubin Negative, Urine Urobilinogen Normal, Urine Leukocyte Esterase 2+H, Urine RBC TntcH, Urine WBC 30-40H, Urine Squamous Epithelial Cells ModerateH, Urine Amorphous Sediment ModerateH, Urine Bacteria ManyH 10/27/17 04:00: Arterial Blood pH 7.270L, Arterial Blood Partial Pressure CO2 32.6L, Arterial Blood Partial Pressure O2 134.3H, Arterial Blood HCO3 14.8L, Arterial Blood Oxygen Saturation 97.8, Arterial Blood Base Excess -11.8, Dipak Test Positive 10/27/17 04:45: White Blood Count 41.6*H, Red Blood Count 3.08L, Hemoglobin 9.2L, Hematocrit 27.3L, Mean Corpuscular Volume 89, Mean Corpuscular Hemoglobin 29.8, Mean Corpuscular Hemoglobin Concent 33.7, Red Cell Distribution Width 14.4, Platelet Count 316, Mean Platelet Volume 6.7, Neutrophils (%) (Auto) , Lymphocytes (%) ( Auto) , Monocytes (%) (Auto) , Eosinophils (%) (Auto) , Basophils (%) (Auto) , Differential Total Cells Counted 100, Neutrophils % (Manual) 80H, Lymphocytes % (Manual) 2L, Monocytes % (Manual) 3, Eosinophils % (Manual) 0, Basophils % ( Manual) 0, Band Neutrophils 12H, Platelet Estimate Adequate, Platelet Morphology Normal, Anisocytosis 1+, Metamyelocytes % 1H, Myelocytes % 2H, Hypochromasia 1+, Sodium Level 142, Potassium Level 4.7, Chloride Level 108H, Carbon Dioxide Level 18L, Anion Gap 16H, Blood Urea Nitrogen 74H, Creatinine 4.7H, Estimat Glomerular Filtration Rate 15.4, Glucose Level 127H, Lactic Acid Level 2.60H, Uric Acid 8.7H, Calcium Level 6.7L, Phosphorus Level 6.6H, Magnesium Level 1.8, Total Bilirubin 0.4, Gamma Glutamyl Transpeptidase 138H, Aspartate Amino Transf (AST/SGOT) 2235H, Alanine Aminotransferase (ALT/SGPT) 2038H, Alkaline Phosphatase 79, Total Creatine Kinase 668H, Troponin I 4.330H, Pro-B-Type Natriuretic Peptide 8472H, Total Protein 4.2L, Albumin 1.0L, Globulin 3.2, Albumin/Globulin Ratio 0.3L, Lipase 956H, Valproic Acid (Depakene ) Level 12L Height (Feet): 5 Height (Inches): 6.00 Weight (Pounds): 90 General Appearance: no apparent distress, lethargic Cardiovascular: tachycardia Respiratory/Chest: decreased breath sounds Abdomen: distended Objective no other change YVES SINHA Oct 27, 2017 08:54
[2017-10-27] MEDS: Metoprolol Tartrate 12.5mg TAB GT SCH ×2 (09:00→20:59)
[2017-10-27] MEDS ORDERED: Morphine Sulfate 4mg/ml Inj IVP PRN (09:00)
[2017-10-27] MEDS ORDERED: Hydrocortisone 100mg Inj IV ONE (09:00)
--- NOTE | 2017-10-27 09:22 | Pulmonolgy Critical Care Note ---
Critical Care - Asmt/Plan Assessment/Plan: ASSESSMENT s/p cardiac arrest ( due to acute GI hemorrhage on 10/26 acute GI hemorrhage hypovolemic shock ( due to GI hemorrhage) acute WI severely elevated LFT , likely shock liver multiorgan system failure acute anemia of blood loss, requiring 3 u PRBC s/p trach 10/23 trach malfunctioning, s/p trach exchange 10/26 acute renal failure acute hypoxemic RF requiring BiPAP, unable to wean ( s/p trach) severe sepsis with E coli bacteremia ( s/p Rx) E coli UTI ( s/p Rx) C dif colitis probably PNA acute bronchitis possible influenza ( s/p Rx) hematuria lactic acidosis 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 seizure disorder HTN CAD with hx of WI dysphagia, s/p PEG dementia R lateral malleolus DTI PLAN OF CARE ICU hemodynamic support, off Phenylephrine, on Levophed, maxed up IVF cardio eval serial troponin unable to start heparin gtt due to severe GI bleeding, discussed with GI will get further cardio input ECHO done previously with pEF at this time hold another ECHO not a candidate for any invasive procedure s/p trach exchange due to leak by surgeon, currently trach functional ABG and CXR in am Pulmonary toilet with HHN, suction as needed Protonix gtt s/p emergent EGD , ulcer noted, vessel clipped GI follows s/p 3 u PRBC, HH up, HH at baseline monitor counts, monitor for active bleeding strict asp precautions, s/p PEG, currently NPO a/emetic prn bowel regimen nephro follows on IVF monitor renal parameters, correct lytes as needed, avoid nephrotoxic renal US done earlier with normal bilateral kidney echogenicity and no hydro worsening renal parameters severely elevated LFT liekly due to shock liver overall multiple organ/system failrue ID follows blood cx + E mitchel, urine cx + E coli, s/p rx Influenza negative ( but rapid test with only sensitivity 60-65%, by history high suspicion for flu), s/p Tamiflu empiric abx leukocytosis worsening stool C dif+ start po Vanco and Flagyl, further management per ID ECHO with pEF 60-65% CTA no PE hold ASA for now due to acute GI bleeding continue BB and statin troponin negative urologist seen and evaluated for hematuria Cervantes seizure precautions, on Depakote , monitor levels condition critical and guarded overall prognosis poor case discussed and evaluated by supervising physician Critical Care - Objective Last 24 Hour Vital Signs Date Time Temp Pulse Resp B/P (MAP) Pulse Ox O2 Delivery O2 Flow Rate FiO2 217/18 08:00 80 2/17/18 08:00 102 33 118/58 100 Mechanical Ventilator 100 2/17/18 08:00 103 2/17/18 08:00 80 2/17/18 07:30 99.6 103 28 118/57 100 Mechanical Ventilator 100 2/17/18 07:00 104 30 113/45 100 Mechanical Ventilator 100 2/17/18 07:00 100/40 2/17/18 06:34 100 29 100 2/17/18 06:30 104 30 100/50 100 Mechanical Ventilator 100 2/17/18 06:04 70/40 2/17/18 06:02 77/45 2/17/18 06:00 104 30 80/45 100 Mechanical Ventilator 100 2/17/18 05:30 106 30 83/50 100 Mechanical Ventilator 100 2/17/18 05:16 106 34 100 2/17/18 05:00 76/50 2/17/18 05:00 104 30 77/45 100 Mechanical Ventilator 100 2/17/18 04:30 104 30 112/60 100 Mechanical Ventilator 100 2/17/18 04:00 99.5 114 26 114/60 100 Mechanical Ventilator 100 2/17/18 04:00 80/50 2/17/18 04:00 104 2/17/18 04:00 100 2/17/18 03:30 104 26 110/65 100 Mechanical Ventilator 100 2/17/18 03:09 126 35 100 2/17/18 03:00 110 30 114/60 100 Mechanical Ventilator 100 2/17/18 03:00 117/59 2/17/18 02:30 112 26 118/65 100 Mechanical Ventilator 100 2/17/18 02:30 85/45 2/17/18 02:00 106 26 117/65 100 Mechanical Ventilator 100 2/17/18 01:30 106 36 108/58 93 Mechanical Ventilator 100 2/17/18 01:24 105 28 100 2/17/18 01:00 113 36 103/56 93 Mechanical Ventilator 100 2/17/18 00:30 104 36 108/58 93 Mechanical Ventilator 100 2/17/18 00:00 104 2/17/18 00:00 104 36 106/58 93 Mechanical Ventilator 100 2/17/18 00:00 100 2/17/18 00:00 99.5 98 36 108/58 93 Mechanical Ventilator 100 2/16/18 23:30 103 30 105/81 100 Mechanical Ventilator 100 2/16/18 23:08 103 34 100 2/16/18 23:00 101 32 100/60 100 Mechanical Ventilator 100 2/16/18 22:30 103 30 108/60 93 Mechanical Ventilator 100 2/16/18 22:00 110 34 108/54 93 Mechanical Ventilator 100 2/16/18 21:33 99 85/55 2/16/18 21:30 100 36 108/58 93 Mechanical Ventilator 100 2/16/18 21:29 99 85/55 2/16/18 21:22 112 32 100 2/16/18 21:00 99 31 108/54 100 Mechanical Ventilator 100 2/16/18 21:00 105/81 2/16/18 21:00 100 2/16/18 20:30 98 36 108/58 93 Mechanical Ventilator 100 2/16/18 20:00 110/61 2/16/18 20:00 98 2/16/18 20:00 90 30 106/50 93 Mechanical Ventilator 100 2/16/18 19:30 98.4 94 36 108/58 93 Mechanical Ventilator 100 2/16/18 19:15 105 35 100 2/16/18 19:00 94 36 117/56 93 Mechanical Ventilator 100 2/16/18 19:00 117/54 2/16/18 18:30 100 30 100/53 93 Mechanical Ventilator 100 2/16/18 18:00 90/37 2/16/18 18:00 98.8 90 33 90/54 98 Mechanical Ventilator 100 2/16/18 17:30 98 30 96/37 99 Mechanical Ventilator 100 2/16/18 17:01 100 34 100 2/16/18 17:00 72/48 2/16/18 17:00 99 33 96/37 99 Mechanical Ventilator 100 2/16/18 17:00 99 30 72/48 99 Mechanical Ventilator 100 2/16/18 16:30 101 30 157/118 99 Mechanical Ventilator 100 2/16/18 16:00 69/45 2/16/18 16:00 97 30 69/45 99 Mechanical Ventilator 100 2/16/18 16:00 97 2/16/18 16:00 100 2/16/18 15:30 98 22 139/114 99 Mechanical Ventilator 100 10/26/17 15:17 199.2 99 18 88 10/26/17 15:12 199.2 99 18 88 10/26/17 15:06 100 29 100 10/26/17 15:00 98.5 97 20 160/119 98 Mechanical Ventilator 50 10/26/17 15:00 160/119 10/26/17 14:30 98 26 153/113 99 Mechanical Ventilator 50 10/26/17 14:15 93 46/32 10/26/17 14:15 46/32 10/26/17 14:00 46/32 10/26/17 14:00 91 20 46/32 88 Mechanical Ventilator 50 10/26/17 13:30 91 22 62/34 85 Mechanical Ventilator 50 10/26/17 13:16 99 26 100 10/26/17 13:00 99 22 111/47 85 Mechanical Ventilator 50 10/26/17 13:00 111/47 10/26/17 12:30 98 25 126/44 80 Mechanical Ventilator 50 10/26/17 12:00 92.9 90 20 129/48 88 Mechanical Ventilator 50 10/26/17 12:00 95 10/26/17 12:00 50 10/26/17 11:57 122/45 10/26/17 11:30 93 20 127/48 87 Mechanical Ventilator 50 10/26/17 11:00 92 20 115/45 86 Mechanical Ventilator 50 10/26/17 11:00 115/45 10/26/17 10:38 94 26 100 10/26/17 10:00 91 20 139/47 88 Mechanical Ventilator 50 10/26/17 10:00 131/49 10/26/17 09:30 90 20 119/47 85 Mechanical Ventilator 50 10/26/17 09:12 89 26 100 Objective: Status: awake, poorly responsive Condition: critical, grave HEENT: atraumatic, normocephalic Neck: trach - Portex #8, secretions thick, gongora, moderate Lungs: scattered rhonchi Heart: HR/BP unstable, regular, tachy Abdomen: soft, non-tender, active bowel sounds, feeding tube Extremities: no C/C/E Micro: Microbiology Date/Time Source Procedure Growth Status 10/26/17 21:30 Stool Clostridium difficile Toxin Assay - Final Complete Critical Care - Subjective ROS Limited/Unobtainable: Yes Interval Events: leukocytosis worsening,febrile HH better after 3 u PRBC -9.2/27.3 no active bleeding troponin -4.33 lactic acid- 2.6 worsening renal failure shock liver severe acidosis on 100%FiO2 and PEEP 10 stool + C dif Condition: critical IV Access: central - RIJ intact EKG Rhythm: Sinus Tachycardia FI02: 100 Vent Support Breath Rate: 18 Vent Support Mode: AC Vent Tidal Volume: 550 Sputum Amount: Small PEEP: 10.0 PIP: 24 Fluids: D51/2 NS at 100 Drips: levophed at 30 mcg/min protonix gtt at 25 ml/hr Tube Feeding Amount: 20 I&O: Intake and Output 10/26/17 10/27/17 19:00 07:00 Intake Total 2524.11 ml 1692.87 ml Output Total 95 ml 520 ml Balance 2429.11 ml 1172.87 ml IV Total 1964.11 ml 1692.87 ml Blood Product 560 ml Output Urine Total 95 ml 520 ml CXR: 10/27 Patchy infiltrates versus interstitial edema. Findings appear slightly improved. ET-Tube: 8.0 ET Position: 24 [place] ([facility]),[place] HOPE Oct 27, 2017 09:22
[2017-10-27] MEDS: Meropenem 500mg/NS 55ml IVPB SCH ×4 (10:06→22:57)
[2017-10-27] MEDS: Flagyl 500mg/NS 100ml Pre-Mix IV SCH ×3 (10:07→21:46)
--- NOTE | 2017-10-27 11:13 | Infectious Diseases Prog Note ---
Assessment/Plan Assessment/Plan Assessment/Plan Bradycardic> Vfib cardiac arrest 10/26 likely 2ry to hemorrhagic shock (drop Hgb 10.8 to 5)- possible GIB- r/o worsening sepsis -CXR 10/26: There is right basilar and right perihilar atelectasis and possibly minimal consolidation. Left lung and bilateral pleural spaces remain clear. C Diff +ve Fever, ongoing Leukocytosis, worsening after code -CXR: Improved right perihilar and basal atelectasis with some residual present. Pneumonia is not excluded -abd xray : Distended small bowel. Ileus versus obstruction. Rectal fecal impaction. -10/23 Bcx NTD, UCx NTD, sp Cx c. albicans, usual resp johnnie E.coli UTI w/ bacteremia ; s/p Rx -REnal US: Limited exam. No definite hydronephrosis. Empty bladder, containing a Cervantes catheter. Bronchitis; SCx : Nl johnnie Suspicion for Flu despite rapid test (+URI symptoms, sick contacts); s/p Rx Acute hypoxic resp failure- intubated (10/20) Cxray :Interval reexpansion of the some of the right lung.ht. -Influenza neg 12/18 KUB : Distended small bowel. Ileus versus obstruction. SP Trach 10/23 transaminitis due to shock JULIA Lactic acidosis, resolved UGI bleed SP EGD 10/18 and 10/26 Path: H Pylori Neg CVA with hemiplegia HTN cataract dysphagia Hx of fall CAD/MS CVA/TIA dementia seizure disorder Plan: -Continue empiric IV Vanco # 7 and cont Meropenem d# 2 , Flagyl and oral Vanco d# 1 -monitor closely for seizure activity as meropenem can decrease valproic acid levels (patient previously on meropenem; tolerated well) - 10/26 SP Zosyn #6 - 10/21 SP Ceftriaxone 2 g qd d# 11 - 10/17 SP empiric Tamiflu #6/5 -2/5 SP IV Vancomcyin #5, Meropenm #3 -10/13 SP Cefepime #3 -Consider CT abd/p once more stable -Monitor CBC/BMP, temperatures; Trend WBC -aspiration precautions - vent Support poor prognosis - Subjective Allergies: Coded Allergies: NO KNOWN ALLERGIES (Unverified Allergy, Unknown, 09/03/15) Subjective sp TRACH ON vent Objective Vital Signs Last 24 Hour Vital Signs Date Time Temp Pulse Resp B/P (MAP) Pulse Ox O2 Delivery O2 Flow Rate FiO2 2/17/18 10:30 104 31 131/60 100 Mechanical Ventilator 80 2/17/18 10:00 109 33 119/65 96 Mechanical Ventilator 80 2/17/18 09:30 109 35 126/64 96 Mechanical Ventilator 80 2/17/18 09:01 100 35 80 2/17/18 09:00 106 34 133/64 98 Mechanical Ventilator 80 2/17/18 09:00 103 126/68 2/17/18 08:30 105 33 129/69 98 Mechanical Ventilator 80 2/17/18 08:00 80 2/17/18 08:00 102 33 118/58 100 Mechanical Ventilator 100 2/17/18 08:00 103 2/17/18 08:00 80 2/17/18 07:30 99.6 103 28 118/57 100 Mechanical Ventilator 100 2/17/18 07:00 104 30 113/45 100 Mechanical Ventilator 100 2/17/18 07:00 100/40 2/17/18 06:34 100 29 100 2/17/18 06:30 104 30 100/50 100 Mechanical Ventilator 100 2/17/18 06:04 70/40 2/17/18 06:02 77/45 2/17/18 06:00 104 30 80/45 100 Mechanical Ventilator 100 2/17/18 05:30 106 30 83/50 100 Mechanical Ventilator 100 2/17/18 05:16 106 34 100 2/17/18 05:00 76/50 2/17/18 05:00 104 30 77/45 100 Mechanical Ventilator 100 2/17/18 04:30 104 30 112/60 100 Mechanical Ventilator 100 2/17/18 04:00 99.5 114 26 114/60 100 Mechanical Ventilator 100 2/17/18 04:00 80/50 2/17/18 04:00 104 2/17/18 04:00 100 2/17/18 03:30 104 26 110/65 100 Mechanical Ventilator 100 2/17/18 03:09 126 35 100 2/17/18 03:00 110 30 114/60 100 Mechanical Ventilator 100 2/17/18 03:00 117/59 2/17/18 02:30 112 26 118/65 100 Mechanical Ventilator 100 2/17/18 02:30 85/45 2/17/18 02:00 106 26 117/65 100 Mechanical Ventilator 100 2/17/18 01:30 106 36 108/58 93 Mechanical Ventilator 100 2/17/18 01:24 105 28 100 2/17/18 01:00 113 36 103/56 93 Mechanical Ventilator 100 2/17/18 00:30 104 36 108/58 93 Mechanical Ventilator 100 2/17/18 00:00 104 2/17/18 00:00 104 36 106/58 93 Mechanical Ventilator 100 2/17/18 00:00 100 2/17/18 00:00 99.5 98 36 108/58 93 Mechanical Ventilator 100 2/16/18 23:30 103 30 105/81 100 Mechanical Ventilator 100 2/16/18 23:08 103 34 100 2/16/18 23:00 101 32 100/60 100 Mechanical Ventilator 100 2/16/18 22:30 103 30 108/60 93 Mechanical Ventilator 100 2/16/18 22:00 110 34 108/54 93 Mechanical Ventilator 100 2/16/18 21:33 99 85/55 2/16/18 21:30 100 36 108/58 93 Mechanical Ventilator 100 2/16/18 21:29 99 85/55 2/16/18 21:22 112 32 100 2/16/18 21:00 99 31 108/54 100 Mechanical Ventilator 100 2/16/18 21:00 105/81 2/16/18 21:00 100 2/16/18 20:30 98 36 108/58 93 Mechanical Ventilator 100 2/16/18 20:00 110/61 2/16/18 20:00 98 2/16/18 20:00 90 30 106/50 93 Mechanical Ventilator 100 2/16/18 19:30 98.4 94 36 108/58 93 Mechanical Ventilator 100 2/16/18 19:15 105 35 100 2/16/18 19:00 94 36 117/56 93 Mechanical Ventilator 100 2/16/18 19:00 117/54 2/16/18 18:30 100 30 100/53 93 Mechanical Ventilator 100 2/16/18 18:00 90/37 2/16/18 18:00 98.8 90 33 90/54 98 Mechanical Ventilator 100 2/16/18 17:30 98 30 96/37 99 Mechanical Ventilator 100 2/16/18 17:01 100 34 100 2/16/18 17:00 72/48 10/26/17 17:00 99 33 96/37 99 Mechanical Ventilator 100 10/26/17 17:00 99 30 72/48 99 Mechanical Ventilator 100 10/26/17 16:30 101 30 157/118 99 Mechanical Ventilator 100 10/26/17 16:00 69/45 10/26/17 16:00 97 30 69/45 99 Mechanical Ventilator 100 10/26/17 16:00 97 10/26/17 16:00 100 10/26/17 15:30 98 22 139/114 99 Mechanical Ventilator 100 10/26/17 15:17 199.2 99 18 88 10/26/17 15:12 199.2 99 18 88 10/26/17 15:06 100 29 100 10/26/17 15:00 98.5 97 20 160/119 98 Mechanical Ventilator 50 10/26/17 15:00 160/119 10/26/17 14:30 98 26 153/113 99 Mechanical Ventilator 50 10/26/17 14:15 93 46/32 10/26/17 14:15 46/32 10/26/17 14:00 46/32 10/26/17 14:00 91 20 46/32 88 Mechanical Ventilator 50 10/26/17 13:30 91 22 62/34 85 Mechanical Ventilator 50 10/26/17 13:16 99 26 100 10/26/17 13:00 99 22 111/47 85 Mechanical Ventilator 50 10/26/17 13:00 111/47 10/26/17 12:30 98 25 126/44 80 Mechanical Ventilator 50 10/26/17 12:00 92.9 90 20 129/48 88 Mechanical Ventilator 50 10/26/17 12:00 95 10/26/17 12:00 50 10/26/17 11:57 122/45 10/26/17 11:30 93 20 127/48 87 Mechanical Ventilator 50 Height (Feet): 5 Height (Inches): 6.00 Weight (Pounds): 90 HEENT: atraumatic Respiratory/Chest: lungs clear Cardiovascular: regular rhythm Abdomen: non distended Microbiology Date/Time Source Procedure Growth Status 10/26/17 21:30 Stool Clostridium difficile Toxin Assay - Final Complete Laboratory Tests Test 10/26/17 14:40 10/26/17 22:00 10/27/17 04:00 10/27/17 04:45 White Blood Count 35.3 K/UL (4.8-10.8) *H 41.6 K/UL (4.8-10.8) *H Red Blood Count 2.96 M/UL (4.70-6.10) L 3.08 M/UL (4.70-6.10) L Hemoglobin 8.7 G/DL (14.2-18.0) #L 9.2 G/DL (14.2-18.0) L Hematocrit 27.0 % (42.0-52.0) #L 27.3 % (42.0-52.0) L Mean Corpuscular Volume 91 FL (80-99) 89 FL (80-99) Mean Corpuscular Hemoglobin 29.5 PG (27.0-31.0) 29.8 PG (27.0-31.0) Mean Corpuscular Hemoglobin Concent 32.2 G/DL (32.0-36.0) 33.7 G/DL (32.0-36.0) Red Cell Distribution Width 14.8 % (11.6-14.8) 14.4 % (11.6-14.8) Platelet Count 326 K/UL (150-450) 316 K/UL (150-450) Mean Platelet Volume 6.3 FL (6.5-10.1) L 6.7 FL (6.5-10.1) Neutrophils (%) (Auto) % (45.0-75.0) % (45.0-75.0) Lymphocytes (%) (Auto) % (20.0-45.0) % (20.0-45.0) Monocytes (%) (Auto) % (1.0-10.0) % (1.0-10.0) Eosinophils (%) (Auto) % (0.0-3.0) % (0.0-3.0) Basophils (%) (Auto) % (0.0-2.0) % (0.0-2.0) Differential Total Cells Counted 100 100 Neutrophils % (Manual) 75 % (45-75) 80 % (45-75) H Lymphocytes % (Manual) 14 % (20-45) L 2 % (20-45) L Monocytes % (Manual) 6 % (1-10) 3 % (1-10) Eosinophils % (Manual) 0 % (0-3) 0 % (0-3) Basophils % (Manual) 0 % (0-2) 0 % (0-2) Band Neutrophils 5 % (0-8) 12 % (0-8) H Nucleated Red Blood Cells 1 /100 WBC Platelet Estimate Adequate Adequate Platelet Morphology Normal Normal Polychromasia 1+ Anisocytosis 1+ 1+ C-Reactive Protein, Quantitative 11.8 mg/dL (0.00-0.90) H Urine Color Brown Urine Appearance Very cloudy Urine pH 5 (4.5-8.0) Urine Specific [place] 1.015 (1.005-1.035) Urine Protein 3+ (NEGATIVE) H Urine Glucose (UA) Negative (NEGATIVE) Urine Ketones Negative (NEGATIVE) Urine Occult Blood 5+ (NEGATIVE) H Urine Nitrite Positive (NEGATIVE) H Urine Bilirubin Negative (NEGATIVE) Urine Urobilinogen Normal MG/DL (0.0-1.0) Urine Leukocyte Esterase 2+ (NEGATIVE) H Urine RBC Tntc /HPF (0 - 0) H Urine WBC 30-40 /HPF (0 - 0) H Urine Squamous Epithelial Cells Moderate /LPF (NONE/OCC) H Urine Amorphous Sediment Moderate /LPF (NONE) H Urine Bacteria Many /HPF (NONE) H Arterial Blood pH 7.270 (7.350-7.450) Arterial Blood Partial Pressure CO2 32.6 mmHg (35.0-45.0) L Arterial Blood Partial Pressure O2 134.3 mmHg (75.0-100.0) H Arterial Blood HCO3 14.8 mmol/L (22.0-26.0) L Arterial Blood Oxygen Saturation 97.8 % (92.0-98.0) Arterial Blood Base Excess -11.8 Dipak Test Positive Metamyelocytes % 1 % (0-0) H Myelocytes % 2 % (0-0) H Hypochromasia 1+ Sodium Level 142 MMOL/L (136-145) Potassium Level 4.7 MMOL/L (3.5-5.1) Chloride Level 108 MMOL/L (98-107) H Carbon Dioxide Level 18 MMOL/L (21-32) L Anion Gap 16 mmol/L (5-15) H Blood Urea Nitrogen 74 mg/dL (7-18) H Creatinine 4.7 MG/DL (0.55-1.30) H Estimat Glomerular Filtration Rate 15.4 mL/min (>60) Glucose Level 127 MG/DL (74-106) H Lactic Acid Level 2.60 mmol/L (0.66-2.22) H Uric Acid 8.7 MG/DL (2.6-7.2) H Calcium Level 6.7 MG/DL (8.5-10.1) L Phosphorus Level 6.6 MG/DL (2.5-4.9) H Magnesium Level 1.8 MG/DL (1.8-2.4) Total Bilirubin 0.4 MG/DL (0.2-1.0) Gamma Glutamyl Transpeptidase 138 U/L (5-85) H Aspartate Amino Transf (AST/SGOT) 2235 U/L (15-37) H Alanine Aminotransferase (ALT/SGPT) 2038 U/L (12-78) H Alkaline Phosphatase 79 U/L (46-116) Total Creatine Kinase 668 U/L (26-308) H Troponin I 4.330 ng/mL (0.000-0.056) Pro-B-Type Natriuretic Peptide 8472 pg/mL (0-125) H Total Protein 4.2 G/DL (6.4-8.2) L Albumin 1.0 G/DL (3.4-5.0) L Globulin 3.2 g/dL Albumin/Globulin Ratio 0.3 (1.0-2.7) L Lipase 956 U/L (73-393) H Valproic Acid (Depakene) Level 12 MCG/ML (50-100) L Test 10/27/17 10:20 Lactic Acid Level Pending C-Reactive Protein, Quantitative Pending Random Vancomycin Level Pending Current Medications Medications (Trade) Dose Ordered Sig/Olvin Route PRN Reason Start Time Stop Time Status Last Admin Dose Admin Acetaminophen (Tylenol) 650 mg Q4H PRN RECTAL Mild Pain (Pain Scale 1-3) 10/26/17 05:49 11/20/17 05:48 Albumin Human 500 ml @ 0 mls/hr Q0M ONCE IV 10/27/17 16:00 10/27/17 16:01 Albuterol/ Ipratropium (Albuterol/ Ipratropium) 3 ml Q4H PRN HHN Shortness of Breath 10/26/17 07:45 10/31/17 07:44 Chlorhexidine Gluconate (Pamela-Hex 2%) 1 applic DAILY@2000 TOPIC 10/26/17 20:00 11/23/17 19:59 10/26/17 21:27 Dextrose/Sodium Chloride 1,000 ml @ 75 mls/hr [id number] IV 10/27/17 09:00 11/26/17 08:59 10/27/17 09:00 Hydrocortisone (Solu-CORTEF) 100 mg EVERY 8 HOURS IV 10/27/17 14:00 11/26/17 13:59 Lorazepam (Ativan 2mg/ml 1ml) 2 mg Q1H PRN IV PERSISTENT AGITATION 10/26/17 06:15 10/28/17 17:08 Meropenem 500 mg/ Sodium Chloride 55 ml @ 110 mls/hr Q12HR@1100,2300 IVPB 10/27/17 11:00 11/01/17 10:59 10/27/17 10:06 Metoprolol Tartrate (Lopressor) 12.5 mg Q12HR GT 10/27/17 09:00 11/26/17 08:59 Metronidazole 100 ml @ 100 mls/hr Q8HR IV 10/27/17 10:00 11/03/17 09:59 10/27/17 10:07 Mineral Oil (Mineral Oil) 30 ml DAILYPRN PRN GT Constipation 10/26/17 10:45 11/24/17 10:44 Morphine Sulfate (Morphine Sulfate) 2 mg Q2H PRN IVP For Pain 10/27/17 09:00 11/03/17 08:59 Nitroglycerin (Ntg) 0.4 mg Q5MIN X 3 DOSES PRN SL Prn Chest Pain 10/26/17 05:45 11/14/17 17:09 Norepinephrine Bitartrate 8 mg/ Dextrose 250 ml @ 0 mls/hr Q24H IV 10/26/17 07:30 11/25/17 07:29 10/27/17 06:04 Ondansetron HCl (Zofran) 4 mg Q6H PRN IVP Nausea & Vomiting 10/26/17 05:51 11/10/17 05:50 Pantoprazole 80 mg/Sodium Chloride 250 ml @ 25 mls/hr Q10H IV 10/26/17 10:00 11/25/17 09:59 10/27/17 06:02 Phenylephrine HCl 50 mg/Dextrose 250 ml @ 0 mls/hr Q24H IV 10/26/17 14:15 11/25/17 14:14 10/26/17 21:33 Polyethylene Glycol (Miralax) 17 gm DAILYPRN PRN GT Constipation 10/26/17 17:15 11/23/17 17:09 Valproic Acid (Depakene) 250 mg Q12HR@0630,1830 GT 10/26/17 06:30 11/14/17 18:29 10/27/17 06:13 Vancomycin HCl (Vanco rx to dose) 1 ea DAILY PRN MISC Per rx protocol 10/26/17 09:00 11/23/17 17:09 Vancomycin HCl (Vancomycin) 125 mg FOUR TIMES A DAY ORAL 10/27/17 13:00 11/03/17 12:59 FAUSTINO AGARWAL M.D. Oct 27, 2017 11:13
--- NOTE | 2017-10-27 11:19 | Diagnostic Imaging Report ---
Indication: Dyspnea Comparison: 10/26/2017 at 07:40 A single view chest radiograph was obtained. Findings: Interstitial edema has developed suspected on the basis of interstitial opacities and slightly prominent but pulmonary vascularity. Tubes and lines are stable. Heart size is stable. IMPRESSION: Suspected interstitial edema
--- NOTE | 2017-10-27 11:22 | Diagnostic Imaging Report ---
Indication: Dyspnea Comparison: 10/26/2017 A single view chest radiograph was obtained. Findings: Patchy infiltrates versus asymmetric interstitial edema demonstrated. Heart size is normal. Tracheostomy and right subclavian line noted. IMPRESSION: Patchy infiltrates versus interstitial edema. Findings appear slightly improved. Please correlate clinically
--- NOTE | 2017-10-27 11:33 | General Progress Note ---
Progress Note Progress Note Surgery: respiratory status better. HD improved and BP stable. no active bleeding noted. labs abnormal. leukocytosis >40k. abdomen soft. trach care and management cont ICU care and management Darren Esteban Oct 27, 2017 11:33
--- NOTE | 2017-10-27 11:41 | General Progress Note ---
Assessment/Plan Problem List: (1) Shock liver ICD Codes: K72.00 - Acute and subacute hepatic failure without coma SNOMED: 314363915 (2) Upper GI bleed ICD Codes: K92.2 - Gastrointestinal hemorrhage, unspecified SNOMED: 21901798 (3) Respiratory failure ICD Codes: J96.90 - Respiratory failure, unspecified, unspecified whether with hypoxia or hypercapnia SNOMED: 787954840 (4) Acute AR ICD Codes: I21.9 - Acute myocardial infarction, unspecified SNOMED: 53478496 (5) Sepsis ICD Codes: A41.9 - Sepsis, unspecified organism SNOMED: 71088947 (6) Feeding by G-tube ICD Codes: Z93.1 - Gastrostomy status SNOMED: 158079697, 201846902 (7) Dysphagia ICD Codes: R13.10 - Dysphagia, unspecified SNOMED: 30960670, 568045741 (8) CVA, old, hemiparesis ICD Codes: I69.359 - Hemiplegia and hemiparesis following cerebral infarction affecting unspecified side SNOMED: 51345588, 42459624, 6928200753246 Assessment/Plan s/p EGD and hemostasis yesterday no recurrent GIB cont Protonix drip NPO fu cardiology poor prognosis Subjective ROS Limited/Unobtainable: No Allergies: Coded Allergies: NO KNOWN ALLERGIES (Unverified Allergy, Unknown, 09/03/15) Objective Last 24 Hour Vital Signs Date Time Temp Pulse Resp B/P (MAP) Pulse Ox O2 Delivery O2 Flow Rate FiO2 10/27/17 11:30 100 29 60 10/27/17 10:30 104 31 131/60 100 Mechanical Ventilator 80 10/27/17 10:00 109 33 119/65 96 Mechanical Ventilator 80 10/27/17 09:30 109 35 126/64 96 Mechanical Ventilator 80 10/27/17 09:01 100 35 80 10/27/17 09:00 106 34 133/64 98 Mechanical Ventilator 80 10/27/17 09:00 103 126/68 10/27/17 08:30 105 33 129/69 98 Mechanical Ventilator 80 10/27/17 08:00 80 10/27/17 08:00 102 33 118/58 100 Mechanical Ventilator 100 10/27/17 08:00 103 10/27/17 08:00 80 10/27/17 07:30 99.6 103 28 118/57 100 Mechanical Ventilator 100 2/17/18 07:00 104 30 113/45 100 Mechanical Ventilator 100 2/17/18 07:00 100/40 2/17/18 06:34 100 29 100 2/17/18 06:30 104 30 100/50 100 Mechanical Ventilator 100 2/17/18 06:04 70/40 2/17/18 06:02 77/45 2/17/18 06:00 104 30 80/45 100 Mechanical Ventilator 100 2/17/18 05:30 106 30 83/50 100 Mechanical Ventilator 100 2/17/18 05:16 106 34 100 2/17/18 05:00 76/50 2/17/18 05:00 104 30 77/45 100 Mechanical Ventilator 100 2/17/18 04:30 104 30 112/60 100 Mechanical Ventilator 100 2/17/18 04:00 99.5 114 26 114/60 100 Mechanical Ventilator 100 2/17/18 04:00 80/50 2/17/18 04:00 104 2/17/18 04:00 100 2/17/18 03:30 104 26 110/65 100 Mechanical Ventilator 100 2/17/18 03:09 126 35 100 2/17/18 03:00 110 30 114/60 100 Mechanical Ventilator 100 2/17/18 03:00 117/59 2/17/18 02:30 112 26 118/65 100 Mechanical Ventilator 100 2/17/18 02:30 85/45 2/17/18 02:00 106 26 117/65 100 Mechanical Ventilator 100 2/17/18 01:30 106 36 108/58 93 Mechanical Ventilator 100 2/17/18 01:24 105 28 100 2/17/18 01:00 113 36 103/56 93 Mechanical Ventilator 100 2/17/18 00:30 104 36 108/58 93 Mechanical Ventilator 100 2/17/18 00:00 104 2/17/18 00:00 104 36 106/58 93 Mechanical Ventilator 100 2/17/18 00:00 100 2/17/18 00:00 99.5 98 36 108/58 93 Mechanical Ventilator 100 2/16/18 23:30 103 30 105/81 100 Mechanical Ventilator 100 2/16/18 23:08 103 34 100 2/16/18 23:00 101 32 100/60 100 Mechanical Ventilator 100 2/16/18 22:30 103 30 108/60 93 Mechanical Ventilator 100 2/16/18 22:00 110 34 108/54 93 Mechanical Ventilator 100 2/16/18 21:33 99 85/55 2/16/18 21:30 100 36 108/58 93 Mechanical Ventilator 100 2/16/18 21:29 99 85/55 2/16/18 21:22 112 32 100 2/16/18 21:00 99 31 108/54 100 Mechanical Ventilator 100 2/16/18 21:00 105/81 2/16/18 21:00 100 2/16/18 20:30 98 36 108/58 93 Mechanical Ventilator 100 2/16/18 20:00 110/61 2/16/18 20:00 98 2/16/18 20:00 90 30 106/50 93 Mechanical Ventilator 100 2/16/18 19:30 98.4 94 36 108/58 93 Mechanical Ventilator 100 2/16/18 19:15 105 35 100 2/16/18 19:00 94 36 117/56 93 Mechanical Ventilator 100 2/16/18 19:00 117/54 2/16/18 18:30 100 30 100/53 93 Mechanical Ventilator 100 2/16/18 18:00 90/37 2/16/18 18:00 98.8 90 33 90/54 98 Mechanical Ventilator 100 2/16/18 17:30 98 30 96/37 99 Mechanical Ventilator 100 2/16/18 17:01 100 34 100 2/16/18 17:00 72/48 2/16/18 17:00 99 33 96/37 99 Mechanical Ventilator 100 2/16/18 17:00 99 30 72/48 99 Mechanical Ventilator 100 2/16/18 16:30 101 30 157/118 99 Mechanical Ventilator 100 2/16/18 16:00 69/45 2/16/18 16:00 97 30 69/45 99 Mechanical Ventilator 100 2/16/18 16:00 97 2/16/18 16:00 100 2/16/18 15:30 98 22 139/114 99 Mechanical Ventilator 100 2/16/18 15:17 199.2 99 18 88 2/16/18 15:12 199.2 99 18 88 2/16/18 15:06 100 29 100 2/16/18 15:00 98.5 97 20 160/119 98 Mechanical Ventilator 50 2/16/18 15:00 160/119 10/26/17 14:30 98 26 153/113 99 Mechanical Ventilator 50 10/26/17 14:15 93 46/32 10/26/17 14:15 46/32 10/26/17 14:00 46/32 10/26/17 14:00 91 20 46/32 88 Mechanical Ventilator 50 10/26/17 13:30 91 22 62/34 85 Mechanical Ventilator 50 10/26/17 13:16 99 26 100 10/26/17 13:00 99 22 111/47 85 Mechanical Ventilator 50 10/26/17 13:00 111/47 10/26/17 12:30 98 25 126/44 80 Mechanical Ventilator 50 10/26/17 12:00 92.9 90 20 129/48 88 Mechanical Ventilator 50 10/26/17 12:00 95 10/26/17 12:00 50 10/26/17 11:57 122/45 Intake and Output 10/26/17 10/27/17 19:00 07:00 Intake Total 2524.11 ml 1692.87 ml Output Total 95 ml 520 ml Balance 2429.11 ml 1172.87 ml IV Total 1964.11 ml 1692.87 ml Blood Product 560 ml Output Urine Total 95 ml 520 ml Laboratory Tests 10/26/17 14:40: White Blood Count 35.3*H, Red Blood Count 2.96L, Hemoglobin 8.7#L, Hematocrit 27.0#L, Mean Corpuscular Volume 91, Mean Corpuscular Hemoglobin 29.5, Mean Corpuscular Hemoglobin Concent 32.2, Red Cell Distribution Width 14.8, Platelet Count 326, Mean Platelet Volume 6.3L, Neutrophils (%) (Auto) , Lymphocytes (%) ( Auto) , Monocytes (%) (Auto) , Eosinophils (%) (Auto) , Basophils (%) (Auto) , Differential Total Cells Counted 100, Neutrophils % (Manual) 75, Lymphocytes % ( Manual) 14L, Monocytes % (Manual) 6, Eosinophils % (Manual) 0, Basophils % ( Manual) 0, Band Neutrophils 5, Nucleated Red Blood Cells 1, Platelet Estimate Adequate, Platelet Morphology Normal, Polychromasia 1+, Anisocytosis 1+, C- Reactive Protein, Quantitative 11.8H 10/26/17 22:00: Urine Color Brown, Urine Appearance Very cloudy, Urine pH 5, Urine Specific [place] 1.015, Urine Protein 3+H, Urine Glucose (UA) Negative, Urine Ketones Negative, Urine Occult Blood 5+H, Urine Nitrite PositiveH, Urine Bilirubin Negative, Urine Urobilinogen Normal, Urine Leukocyte Esterase 2+H, Urine RBC TntcH, Urine WBC 30-40H, Urine Squamous Epithelial Cells ModerateH, Urine Amorphous Sediment ModerateH, Urine Bacteria ManyH 10/27/17 04:00: Arterial Blood pH 7.270L, Arterial Blood Partial Pressure CO2 32.6L, Arterial Blood Partial Pressure O2 134.3H, Arterial Blood HCO3 14.8L, Arterial Blood Oxygen Saturation 97.8, Arterial Blood Base Excess -11.8, Dipak Test Positive 10/27/17 04:45: White Blood Count 41.6*H, Red Blood Count 3.08L, Hemoglobin 9.2L, Hematocrit 27.3L, Mean Corpuscular Volume 89, Mean Corpuscular Hemoglobin 29.8, Mean Corpuscular Hemoglobin Concent 33.7, Red Cell Distribution Width 14.4, Platelet Count 316, Mean Platelet Volume 6.7, Neutrophils (%) (Auto) , Lymphocytes (%) ( Auto) , Monocytes (%) (Auto) , Eosinophils (%) (Auto) , Basophils (%) (Auto) , Differential Total Cells Counted 100, Neutrophils % (Manual) 80H, Lymphocytes % (Manual) 2L, Monocytes % (Manual) 3, Eosinophils % (Manual) 0, Basophils % ( Manual) 0, Band Neutrophils 12H, Platelet Estimate Adequate, Platelet Morphology Normal, Anisocytosis 1+, Metamyelocytes % 1H, Myelocytes % 2H, Hypochromasia 1+, Sodium Level 142, Potassium Level 4.7, Chloride Level 108H, Carbon Dioxide Level 18L, Anion Gap 16H, Blood Urea Nitrogen 74H, Creatinine 4.7H, Estimat Glomerular Filtration Rate 15.4, Glucose Level 127H, Lactic Acid Level 2.60H, Uric Acid 8.7H, Calcium Level 6.7L, Phosphorus Level 6.6H, Magnesium Level 1.8, Total Bilirubin 0.4, Gamma Glutamyl Transpeptidase 138H, Aspartate Amino Transf (AST/SGOT) 2235H, Alanine Aminotransferase (ALT/SGPT) 2038H, Alkaline Phosphatase 79, Total Creatine Kinase 668H, Troponin I 4.330H, Pro-B-Type Natriuretic Peptide 8472H, Total Protein 4.2L, Albumin 1.0L, Globulin 3.2, Albumin/Globulin Ratio 0.3L, Lipase 956H, Valproic Acid (Depakene ) Level 12L 10/27/17 10:20: Lactic Acid Level 2.00, C-Reactive Protein, Quantitative 18.8H, Random Vancomycin Level 22.0 Height (Feet): 5 Height (Inches): 6.00 Weight (Pounds): 90 General Appearance: lethargic EENT: normal ENT inspection Neck: supple Cardiovascular: tachycardia Respiratory/Chest: decreased breath sounds Abdomen: normal bowel sounds, non tender, soft Extremities: non-tender ANGELA WAGONER Oct 27, 2017 11:41
--- NOTE | 2017-10-27 13:32 | Cardiology Progress Note ---
Assessment/Plan Assessment/Plan [id number] cardiac arrest massive gi bleed anemaia arf and shock liver =/- pancreatitis ekg no st twave abn is supect type 2 nstemi not a candidate for antiplt or anticoagualtion due to recetn massive gi bleed echo serial enzyme pressor support / taper duration 1hour Objective Last 24 Hour Vital Signs Date Time Temp Pulse Resp B/P (MAP) Pulse Ox O2 Delivery O2 Flow Rate FiO2 10/27/17 13:10 107 31 60 2/18 12:47 125/67 2/17/18 12:15 106 28 128/68 100 Mechanical Ventilator 80 2/18 12:00 111 33 131/68 99 Mechanical Ventilator 80 217/18 12:00 111 217/18 12:00 80 2/17/18 11:45 114 32 134/69 99 Mechanical Ventilator 80 217/18 11:30 100 29 60 2/17/18 11:30 101 29 133/72 100 Mechanical Ventilator 80 2/18 11:00 100 28 109/52 100 Mechanical Ventilator 80 2/18 10:30 104 31 131/60 100 Mechanical Ventilator 80 217/18 10:00 109 33 119/65 96 Mechanical Ventilator 80 217/18 09:30 109 35 126/64 96 Mechanical Ventilator 80 217/18 09:01 100 35 80 2/17/18 09:00 106 34 133/64 98 Mechanical Ventilator 80 217/18 09:00 103 126/68 2/17/18 08:30 105 33 129/69 98 Mechanical Ventilator 80 217/18 08:00 80 2/17/18 08:00 102 33 118/58 100 Mechanical Ventilator 100 2/17/18 08:00 103 2/17/18 08:00 80 2/17/18 07:30 99.6 103 28 118/57 100 Mechanical Ventilator 100 2/17/18 07:00 104 30 113/45 100 Mechanical Ventilator 100 2/17/18 07:00 100/40 2/17/18 06:34 100 29 100 2/17/18 06:30 104 30 100/50 100 Mechanical Ventilator 100 2/17/18 06:04 70/40 2/17/18 06:02 77/45 2/17/18 06:00 104 30 80/45 100 Mechanical Ventilator 100 2/17/18 05:30 106 30 83/50 100 Mechanical Ventilator 100 2/17/18 05:16 106 34 100 2/17/18 05:00 76/50 2/17/18 05:00 104 30 77/45 100 Mechanical Ventilator 100 2/17/18 04:30 104 30 112/60 100 Mechanical Ventilator 100 2/17/18 04:00 99.5 114 26 114/60 100 Mechanical Ventilator 100 2/17/18 04:00 80/50 2/17/18 04:00 104 2/17/18 04:00 100 2/17/18 03:30 104 26 110/65 100 Mechanical Ventilator 100 2/17/18 03:09 126 35 100 2/17/18 03:00 110 30 114/60 100 Mechanical Ventilator 100 2/17/18 03:00 117/59 2/17/18 02:30 112 26 118/65 100 Mechanical Ventilator 100 2/17/18 02:30 85/45 2/17/18 02:00 106 26 117/65 100 Mechanical Ventilator 100 2/17/18 01:30 106 36 108/58 93 Mechanical Ventilator 100 2/17/18 01:24 105 28 100 2/17/18 01:00 113 36 103/56 93 Mechanical Ventilator 100 2/17/18 00:30 104 36 108/58 93 Mechanical Ventilator 100 2/17/18 00:00 104 2/17/18 00:00 104 36 106/58 93 Mechanical Ventilator 100 2/17/18 00:00 100 2/17/18 00:00 99.5 98 36 108/58 93 Mechanical Ventilator 100 2/16/18 23:30 103 30 105/81 100 Mechanical Ventilator 100 2/16/18 23:08 103 34 100 2/16/18 23:00 101 32 100/60 100 Mechanical Ventilator 100 2/16/18 22:30 103 30 108/60 93 Mechanical Ventilator 100 2/16/18 22:00 110 34 108/54 93 Mechanical Ventilator 100 2/16/18 21:33 99 85/55 2/16/18 21:30 100 36 108/58 93 Mechanical Ventilator 100 2/16/18 21:29 99 85/55 2/16/18 21:22 112 32 100 2/16/18 21:00 99 31 108/54 100 Mechanical Ventilator 100 2/16/18 21:00 105/81 2/16/18 21:00 100 2/16/18 20:30 98 36 108/58 93 Mechanical Ventilator 100 2/16/18 20:00 110/61 2/16/18 20:00 98 2/16/18 20:00 90 30 106/50 93 Mechanical Ventilator 100 2/16/18 19:30 98.4 94 36 108/58 93 Mechanical Ventilator 100 2/16/18 19:15 105 35 100 2/16/18 19:00 94 36 117/56 93 Mechanical Ventilator 100 2/16/18 19:00 117/54 2/16/18 18:30 100 30 100/53 93 Mechanical Ventilator 100 2/16/18 18:00 90/37 2/16/18 18:00 98.8 90 33 90/54 98 Mechanical Ventilator 100 216/18 17:30 98 30 96/37 99 Mechanical Ventilator 100 2/16/18 17:01 100 34 100 216/18 17:00 72/48 2/16/18 17:00 99 33 96/37 99 Mechanical Ventilator 100 216/18 17:00 99 30 72/48 99 Mechanical Ventilator 100 216/18 16:30 101 30 157/118 99 Mechanical Ventilator 100 216/18 16:00 69/45 2/16/18 16:00 97 30 69/45 99 Mechanical Ventilator 100 216/18 16:00 97 2/16/18 16:00 100 2/16/18 15:30 98 22 139/114 99 Mechanical Ventilator 100 216/18 15:17 199.2 99 18 88 2/16/18 15:12 199.2 99 18 88 2/16/18 15:06 100 29 100 216/18 15:00 98.5 97 20 160/119 98 Mechanical Ventilator 50 216/18 15:00 160/119 2/16/18 14:30 98 26 153/113 99 Mechanical Ventilator 50 216/18 14:15 93 46/32 216/18 14:15 46/32 216/18 14:00 46/32 216/18 14:00 91 20 46/32 88 Mechanical Ventilator 50 Intake and Output 216/18 2/17/18 19:00 07:00 Intake Total 2524.11 ml 1692.87 ml Output Total 95 ml 520 ml Balance 2429.11 ml 1172.87 ml IV Total 1964.11 ml 1692.87 ml Blood Product 560 ml Output Urine Total 95 ml 520 ml Laboratory Tests Test 10/26/17 14:40 10/26/17 22:00 10/27/17 04:00 10/27/17 04:45 White Blood Count 35.3 K/UL (4.8-10.8) *H 41.6 K/UL (4.8-10.8) *H Red Blood Count 2.96 M/UL (4.70-6.10) L 3.08 M/UL (4.70-6.10) L Hemoglobin 8.7 G/DL (14.2-18.0) #L 9.2 G/DL (14.2-18.0) L Hematocrit 27.0 % (42.0-52.0) #L 27.3 % (42.0-52.0) L Mean Corpuscular Volume 91 FL (80-99) 89 FL (80-99) Mean Corpuscular Hemoglobin 29.5 PG (27.0-31.0) 29.8 PG (27.0-31.0) Mean Corpuscular Hemoglobin Concent 32.2 G/DL (32.0-36.0) 33.7 G/DL (32.0-36.0) Red Cell Distribution Width 14.8 % (11.6-14.8) 14.4 % (11.6-14.8) Platelet Count 326 K/UL (150-450) 316 K/UL (150-450) Mean Platelet Volume 6.3 FL (6.5-10.1) L 6.7 FL (6.5-10.1) Neutrophils (%) (Auto) % (45.0-75.0) % (45.0-75.0) Lymphocytes (%) (Auto) % (20.0-45.0) % (20.0-45.0) Monocytes (%) (Auto) % (1.0-10.0) % (1.0-10.0) Eosinophils (%) (Auto) % (0.0-3.0) % (0.0-3.0) Basophils (%) (Auto) % (0.0-2.0) % (0.0-2.0) Differential Total Cells Counted 100 100 Neutrophils % (Manual) 75 % (45-75) 80 % (45-75) H Lymphocytes % (Manual) 14 % (20-45) L 2 % (20-45) L Monocytes % (Manual) 6 % (1-10) 3 % (1-10) Eosinophils % (Manual) 0 % (0-3) 0 % (0-3) Basophils % (Manual) 0 % (0-2) 0 % (0-2) Band Neutrophils 5 % (0-8) 12 % (0-8) H Nucleated Red Blood Cells 1 /100 WBC Platelet Estimate Adequate Adequate Platelet Morphology Normal Normal Polychromasia 1+ Anisocytosis 1+ 1+ C-Reactive Protein, Quantitative 11.8 mg/dL (0.00-0.90) H Urine Color Brown Urine Appearance Very cloudy Urine pH 5 (4.5-8.0) Urine Specific [place] 1.015 (1.005-1.035) Urine Protein 3+ (NEGATIVE) H Urine Glucose (UA) Negative (NEGATIVE) Urine Ketones Negative (NEGATIVE) Urine Occult Blood 5+ (NEGATIVE) H Urine Nitrite Positive (NEGATIVE) H Urine Bilirubin Negative (NEGATIVE) Urine Urobilinogen Normal MG/DL (0.0-1.0) Urine Leukocyte Esterase 2+ (NEGATIVE) H Urine RBC Tntc /HPF (0 - 0) H Urine WBC 30-40 /HPF (0 - 0) H Urine Squamous Epithelial Cells Moderate /LPF (NONE/OCC) H Urine Amorphous Sediment Moderate /LPF (NONE) H Urine Bacteria Many /HPF (NONE) H Arterial Blood pH 7.270 (7.350-7.450) Arterial Blood Partial Pressure CO2 32.6 mmHg (35.0-45.0) L Arterial Blood Partial Pressure O2 134.3 mmHg (75.0-100.0) H Arterial Blood HCO3 14.8 mmol/L (22.0-26.0) L Arterial Blood Oxygen Saturation 97.8 % (92.0-98.0) Arterial Blood Base Excess -11.8 Dipak Test Positive Metamyelocytes % 1 % (0-0) H Myelocytes % 2 % (0-0) H Hypochromasia 1+ Sodium Level 142 MMOL/L (136-145) Potassium Level 4.7 MMOL/L (3.5-5.1) Chloride Level 108 MMOL/L (98-107) H Carbon Dioxide Level 18 MMOL/L (21-32) L Anion Gap 16 mmol/L (5-15) H Blood Urea Nitrogen 74 mg/dL (7-18) H Creatinine 4.7 MG/DL (0.55-1.30) H Estimat Glomerular Filtration Rate 15.4 mL/min (>60) Glucose Level 127 MG/DL (74-106) H Lactic Acid Level 2.60 mmol/L (0.66-2.22) H Uric Acid 8.7 MG/DL (2.6-7.2) H Calcium Level 6.7 MG/DL (8.5-10.1) L Phosphorus Level 6.6 MG/DL (2.5-4.9) H Magnesium Level 1.8 MG/DL (1.8-2.4) Total Bilirubin 0.4 MG/DL (0.2-1.0) Gamma Glutamyl Transpeptidase 138 U/L (5-85) H Aspartate Amino Transf (AST/SGOT) 2235 U/L (15-37) H Alanine Aminotransferase (ALT/SGPT) 2038 U/L (12-78) H Alkaline Phosphatase 79 U/L (46-116) Total Creatine Kinase 668 U/L (26-308) H Troponin I 4.330 ng/mL (0.000-0.056) Pro-B-Type Natriuretic Peptide 8472 pg/mL (0-125) H Total Protein 4.2 G/DL (6.4-8.2) L Albumin 1.0 G/DL (3.4-5.0) L Globulin 3.2 g/dL Albumin/Globulin Ratio 0.3 (1.0-2.7) L Lipase 956 U/L (73-393) H Valproic Acid (Depakene) Level 12 MCG/ML (50-100) L Test 10/27/17 10:20 Lactic Acid Level 2.00 mmol/L (0.66-2.22) C-Reactive Protein, Quantitative 18.8 mg/dL (0.00-0.90) H Random Vancomycin Level 22.0 ug/mL Microbiology Date/Time Source Procedure Growth Status 10/26/17 21:30 Stool Clostridium difficile Toxin Assay - Final Complete CHRISTEN LOVE Oct 27, 2017 13:32
[2017-10-27] MEDS: Hydrocortisone 100mg Inj IV SCH ×2 (14:51→21:48)
[2017-10-27] MEDS: Vancomycin oral 125mg/2.5ml ORAL SCH ×3 (14:51→20:59)
--- NOTE | 2017-10-27 15:48 | Cardiology Report ---
APPROVED REPORT EXAM: Two-dimensional and M-mode echocardiogram with Doppler and color Doppler. INDICATION Left Ventricular Function M-Mode DIMENSIONS IVSd0.8 (0.7-1.1cm)Left Atrium (MM)2.7 (1.6-4.0cm) LVDd4.1 (3.5-5.6cm)Aortic Root2.5 (2.0-3.7cm) PWd0.9 (0.7-1.1cm)Aortic Cusp Exc.2.0 (1.5-2.0cm) LVDs2.1 (2.5-4.0cm) PWs1.5 cm Technically difficult study due to patient on ventilator. Study quality precludes accurate assessment of regional wall motion. Normal left ventricular chamber size, systolic function and wall motion to extent visualized. Left ventricular ejection fraction estimated to be 60-65 %. No evidence of left ventricular hypertrophy. No evidence of pericardial effusion. All other cardiac chamber sizes are within normal limits. Focal aortic valve sclerosis with adequate cusp excursion. Thickened mitral valve leaflets with normal excursion. Mild mitral annulus and aortic root calcification. Pulmonic valve not well visualized. Normal tricuspid valve structure. IVC dilated at 2.1 cm without physiologic collapse suggestive of increased RA pressure. A color flow and spectral Doppler study was performed and revealed: No aortic regurgitation. No mitral regurgitation. Mitral inflow indicates normal left ventricular diastolic function. Trace tricuspid regurgitation. Tricuspid systolic velocities suggests peak right ventricular systolic pressure of 33 mmHg. No pulmonic regurgitation present.
[2017-10-27] MEDS ORDERED: D5 1/2NS 1000ml IV ONE (17:28)
--- NOTE | 2017-10-27 18:30 | Consultation ---
DATE OF CONSULTATION: 10/27/2017 CARDIOLOGY CRITICAL CARE RENDITION CONSULTING PHYSICIAN: Lex Chin M.D. REFERRING PHYSICIAN: Sissy Martines M.D. REASON FOR EVALUATION: Status post cardiac arrest and cardiac enzyme abnormality. HISTORY OF PRESENT ILLNESS: This patient is a very unfortunate elderly, a resident of [facility], who was admitted to the hospital on 10/12/2017. He has been admitted to the hospital due to altered level of consciousness and has been here for approximately 16 days. Apparently, yesterday, he started having two episodes of an arrest, was resuscitated, first one became bradycardic and subsequently lost pulses, PEA, chest compressions, epinephrine and advanced cardiac life support. The patient was then noted to have improvement in his blood pressure, was transferred to the intensive care unit. In the intensive care unit, he has had two more episodes of cardiac arrest within the first hour or so of being admitted to the hospital. The patient apparently had bradycardic arrest. CPR was ongoing. Limited IV access, IV medications per advanced cardiac life support, was noted to be also anemic, hemoglobin down to 5, atropine was given, return of spontaneous circulation, right femoral central venous line was attempted, but subsequently right subclavian catheter was placed under sterile condition and the patient did improve and subsequently had a third episode of an arrest secondary to GI bleed. VF defibrillated on two separate occasions with spontaneous return of circulation. Massive amounts of bleeding apparently were reported by the staff. The patient subsequently underwent endoscopy by Dr. Campos and apparently had cauterization of the bleeding vessel, subsequently on two pressors. Overnight, the patient has improved in terms of hemodynamics and the staff has been able to discontinue one of the pressors and tapering off the other one. However, he remains unresponsive, noncommunicative, on a ventilator as he was previously to admission and his cardiac enzymes were noted to be 4, and therefore, this consultation was requested today. The patient is unable to provide any meaningful history whatsoever at this time. PAST MEDICAL HISTORY: Evaluation from records indicate the patient has had epilepsy, dysphagia, history of falling, hemiplegia, hemiparesis following a cerebrovascular accident, probably arthritis, obstructive hydrocephalus, systemic hypertension, hyperlipidemia, tobacco use disorder, cataracts and strabismus, dysphagia, and has been on long-term use of aspirin. Really no other information available. ALLERGIES: The patient reported he has no known drug allergies. SOCIAL HISTORY: Unable to provide except for the fact that he is a resident of convalescent facility. MEDICATIONS: His medications at the time of my dictation include vancomycin, albumin, hydrocortisone, Solu-Cortef, meropenem, Flagyl, metoprolol 12.5 mg twice daily, morphine, Lipitor, MiraLAX, norepinephrine, phenylephrine, epinephrine, mineral oil, Protonix, Ativan, promethazine, aspirin, Zofran, Tylenol and p.r.n. nitroglycerin, although he has not been using it. PHYSICAL EXAMINATION: GENERAL: Shows him to be obtunded, appears to be obtunded gentleman in no respiratory distress, although he is somewhat tachypneic, on a mechanical ventilator through a trach. LUNGS: Appear to have some rhonchi bilaterally. CARDIAC: Regular rhythm. Tachycardic. No heaves or thrills noted. EXTREMITIES: There is edema of 1 to 2+ lower extremities distally and proximal legs. LABORATORY AND DIAGNOSTIC DATA: A chest x-ray shows patchy infiltrate versus interstitial edema, appears improved compared to prior . The patient's labs, however, show white count of 41,000 with hemoglobin 9.2 and platelet count of 316. At its lowest, his hemoglobin yesterday was 5.0. Blood gases, pH of 7.27, pCO2 of 32, pO2 of 134, bicarbonate 15, and 97% saturation. Sodium is 142, potassium 4.7, chloride 108, bicarbonate 18, BUN of 74, creatinine 4.7, and glucose of 127. His creatinine was 0.9 on 10/24/2017 and now 4.7, consistent with an acute renal failure. Lactic acid was at 05:51 his admission on 10/11/2017, yesterday 2.6 and 2.0 today. His gamma-GTP of 138, magnesium 1.8. AST and ALT on 10/24/2017 35 for the AST, 628 yesterday, and 2200 today and pretty much the same for the ALT, which was 43 and then 431 and subsequently 2000 today, likely from shock liver. CK of 668, was 149 at the time of his admission. His troponin yesterday was 0.045 and today is 4.33 and his proBNP of 8400, was 841 on prior occasions. Lipase of 956. His electrocardiogram yesterday, this is at 05:26, what appears to be sinus rhythm with really no significant ST or T-wave abnormalities. An EKG is being performed as we speak. ASSESSMENT AND PLAN: 1. Cardiopulmonary arrest on three separate occasions. 2. Massive gastrointestinal bleed. 3. Encephalopathy. 4. Abnormal liver function tests, likely shock liver. 5. Acute renal failure. 6. Anemia. 7. Abnormal cardiac enzymes of questionable significance, possibly post related to cardiopulmonary resuscitation and renal insufficiency. 8. Chronic respiratory failure. 9. History of cerebrovascular accident. This patient was seen in cardiac consultation. The patient has had three bouts of cardiac arrest approximately 15 minutes each, as I understand it, with CPR. He had also had episode of ventricular fibrillation requiring direct current cardioversion as the last. His cardiac enzymes abnormal. His EKG is being performed and will be ready shortly. He will have an echocardiogram for evaluation of left ventricular systolic function and wall motion abnormalities. Unfortunately, I cannot be sure that he did not suffer any coronary syndrome at least during these episodes of arrest, although I suspect the etiology would have been massive GI bleed and anemia and hypoperfusion and the possibility of type [address]-elevation myocardial infarction rather than type 1. Nevertheless, at this time, the patient is unable to tolerate any antiplatelets or anticoagulation therapy, echocardiogram will be ordered. Repeat EKG will be ordered. Serial enzymes will be checked. Blood pressure support with pressors that are being provided, tapering down pressors as needed. Actually, repeat EKG just performed really still does not show any evidence of an infarction of an acute nature nor any ST-segment changes. Echocardiogram is pending. Continue supportive care of this patient with pressors and likely antibiotics. The liver function tests and renal function to be followed up. The patient remains critically ill and at risk of dying, as he may have further suffered an anoxic encephalopathy during the arrest that may need to be placed in this equation as well. Lex Chin M.D. DR: SHALINI JOB#: [id number] CC:
[2017-10-27] MEDS: Dyna-Hex 2% Top Sol 2oz TOPIC SCH (19:38)
[2017-10-27] MEDS ORDERED: Vancomycin 750mg/NS 250ml IVPB ONE (21:00)
[2017-10-28] VITALS (23 sets, daily range): BP systolic 90–147; BP diastolic 53–93
[2017-10-28 05:04] LABS: HEMATOCRIT 19.9 % (42.0-52.0); MEAN CORPUSCULAR VOLUME 88 FL (80-99); PLATELET COUNT 243 K/UL (150-450); RED BLOOD COUNT 2.25 M/UL (4.70-6.10); RED CELL DISTRIBUTION WIDTH 14.6 % (11.6-14.8)
[2017-10-28 05:06] LABS: HEMOGLOBIN 6.7 G/DL (14.2-18.0); WHITE BLOOD COUNT 40.7 K/UL (4.8-10.8)
[2017-10-28 05:33] LABS: ALANINE AMINOTRANSFERASE 1383 U/L (12-78); ALBUMIN 1.7 G/DL (3.4-5.0); ALBUMIN/GLOBULIN RATIO 0.5 (1.0-2.7); ALKALINE PHOSPHATASE 112 U/L (46-116); ANION GAP 15 mmol/L (5-15); ASPARTATE AMINO TRANSFERASE 944 U/L (15-37); BILIRUBIN,TOTAL 0.7 MG/DL (0.2-1.0); BLOOD UREA NITROGEN 81 mg/dL (7-18); CALCIUM 6.9 MG/DL (8.5-10.1); CARBON DIOXIDE 16 MMOL/L (21-32); CHLORIDE 108 MMOL/L (98-107); CREATININE 5.9 MG/DL (0.55-1.30); GAMMA GLUTAMYL TRANSPEPTIDASE 200 U/L (5-85); PHOSPHORUS 6.7 MG/DL (2.5-4.9); POTASSIUM 4.1 MMOL/L (3.5-5.1); SODIUM 139 MMOL/L (136-145)
[2017-10-28] MEDS: Flagyl 500mg/NS 100ml Pre-Mix IV SCH ×3 (05:33→21:40)
[2017-10-28] MEDS: Hydrocortisone 100mg Inj IV SCH (05:35)
[2017-10-28] MEDS: Valproic Acid 250mg/5ml Liquid GT SCH ×2 (06:30→18:30)
--- NOTE | 2017-10-28 08:53 | General Progress Note ---
Assessment/Plan Problem List: (1) Shock liver ICD Codes: K72.00 - Acute and subacute hepatic failure without coma SNOMED: 664928995 (2) Upper GI bleed ICD Codes: K92.2 - Gastrointestinal hemorrhage, unspecified SNOMED: 45050664 (3) Respiratory failure ICD Codes: J96.90 - Respiratory failure, unspecified, unspecified whether with hypoxia or hypercapnia SNOMED: 855478520 (4) Acute CA ICD Codes: I21.9 - Acute myocardial infarction, unspecified SNOMED: 77887576 (5) Sepsis ICD Codes: A41.9 - Sepsis, unspecified organism SNOMED: 41292390 (6) Feeding by G-tube ICD Codes: Z93.1 - Gastrostomy status SNOMED: 849733157, 568369134 (7) Dysphagia ICD Codes: R13.10 - Dysphagia, unspecified SNOMED: 56865409, 618084819 (8) CVA, old, hemiparesis ICD Codes: I69.359 - Hemiplegia and hemiparesis following cerebral infarction affecting unspecified side SNOMED: 66462481, 28637983, 1408161290004 Assessment/Plan s/p EGD and hemostasis on Sunday now with ? recurrent bleed transfuse 2 units cont Protonix drip NPO fu cardiology poor prognosis plan repeat EGD if needed Subjective ROS Limited/Unobtainable: No Allergies: Coded Allergies: NO KNOWN ALLERGIES (Unverified Allergy, Unknown, 09/03/15) Subjective intubated in the ICU Objective Last 24 Hour Vital Signs Date Time Temp Pulse Resp B/P (MAP) Pulse Ox O2 Delivery O2 Flow Rate FiO2 10/28/17 08:00 60 10/28/17 08:00 94 10/28/17 08:00 98.6 94 23 124/65 100 Mechanical Ventilator 60 10/28/17 07:00 102 26 120/71 100 Mechanical Ventilator 60 10/28/17 06:36 101 31 60 10/28/17 06:00 103 26 108/71 100 Mechanical Ventilator 60 10/28/17 05:16 100 31 60 10/28/17 05:00 102 29 116/67 100 Mechanical Ventilator 60 10/28/17 04:00 60 10/28/17 04:00 98.5 89 21 112/66 100 Mechanical Ventilator 60 10/28/17 03:53 93 2/18/18 03:13 91 23 60 2/18/18 03:00 89 23 101/55 100 Mechanical Ventilator 60 2/18/18 02:00 91 23 90/53 100 Mechanical Ventilator 60 2/18/18 01:16 94 24 60 2/18/18 01:00 89 23 90/69 100 Mechanical Ventilator 60 2/18/18 00:00 98.7 91 23 99/58 100 Mechanical Ventilator 60 2/18/18 00:00 60 2/17/18 23:45 91 2/17/18 23:02 93 24 60 2/17/18 23:00 96 25 116/76 100 Mechanical Ventilator 60 2/17/18 22:00 106 29 127/59 100 Mechanical Ventilator 60 2/17/18 21:01 95 26 60 2/17/18 21:00 106 27 103/72 100 Mechanical Ventilator 60 2/17/18 20:59 98 113/59 2/17/18 20:00 98.7 99 26 104/60 100 Mechanical Ventilator 60 2/17/18 20:00 104 2/17/18 20:00 60 2/17/18 19:00 109 30 123/64 98 Mechanical Ventilator 60 2/17/18 18:27 113 33 60 2/17/18 18:00 98.9 102 28 131/64 99 Mechanical Ventilator 60 2/17/18 17:00 109 33 117/57 97 Mechanical Ventilator 60 2/17/18 16:58 107 34 60 2/17/18 16:30 104 33 110/56 99 Mechanical Ventilator 80 2/17/18 16:00 106 29 134/61 100 Mechanical Ventilator 80 2/17/18 16:00 80 2/17/18 16:00 102 2/17/18 15:30 110 28 134/61 99 Mechanical Ventilator 80 2/17/18 15:07 102 29 60 2/17/18 15:00 102 30 115/78 98 Mechanical Ventilator 80 2/17/18 14:30 104 28 137/79 100 Mechanical Ventilator 80 2/17/18 14:00 103 28 134/79 99 Mechanical Ventilator 80 2/17/18 13:30 106 29 126/66 99 Mechanical Ventilator 80 2/17/18 13:15 105 30 127/66 99 Mechanical Ventilator 80 2/17/18 13:10 107 31 60 2/17/18 13:00 106 30 123/66 99 Mechanical Ventilator 80 2/17/18 12:47 125/67 10/27/17 12:45 98.5 104 30 96/60 98 Mechanical Ventilator 80 10/27/17 12:30 106 29 125/67 97 Mechanical Ventilator 80 10/27/17 12:15 106 28 128/68 100 Mechanical Ventilator 80 10/27/17 12:00 111 33 131/68 99 Mechanical Ventilator 80 10/27/17 12:00 111 10/27/17 12:00 80 10/27/17 11:45 114 32 134/69 99 Mechanical Ventilator 80 10/27/17 11:30 100 29 60 10/27/17 11:30 101 29 133/72 100 Mechanical Ventilator 80 10/27/17 11:00 100 28 109/52 100 Mechanical Ventilator 80 10/27/17 10:30 104 31 131/60 100 Mechanical Ventilator 80 10/27/17 10:00 109 33 119/65 96 Mechanical Ventilator 80 10/27/17 09:30 109 35 126/64 96 Mechanical Ventilator 80 10/27/17 09:01 100 35 80 10/27/17 09:00 106 34 133/64 98 Mechanical Ventilator 80 10/27/17 09:00 103 126/68 Intake and Output 10/27/17 10/28/17 19:00 07:00 Intake Total 100 ml 1485 ml Output Total 0 ml 410 ml Balance 100 ml 1075 ml IV Total 100 ml 1455 ml Other 30 ml Output Urine Total 0 ml 10 ml Stool Total 400 ml Laboratory Tests 10/27/17 10:20: Lactic Acid Level 2.00, C-Reactive Protein, Quantitative 18.8H, Random Vancomycin Level 22.0 10/28/17 03:20: Lactic Acid Level 1.40, White Blood Count 40.7*H, Red Blood Count 2.25L, Hemoglobin 6.7*L, Hematocrit 19.9L, Mean Corpuscular Volume 88, Mean Corpuscular Hemoglobin 29.6, Mean Corpuscular Hemoglobin Concent 33.5, Red Cell Distribution Width 14.6, Platelet Count 243, Mean Platelet Volume 6.6, Neutrophils (%) (Auto) , Lymphocytes (%) (Auto) , Monocytes (%) (Auto) , Eosinophils (%) (Auto) , Basophils (%) (Auto) , Differential Total Cells Counted 100, Neutrophils % (Manual) 80H, Lymphocytes % (Manual) 6L, Monocytes % (Manual) 4, Eosinophils % (Manual) 0, Basophils % (Manual) 0, Myelocytes % 3H, Band Neutrophils 7, Platelet Estimate Adequate, Platelet Morphology Normal, Hypochromasia 1+, Anisocytosis 1+, Sodium Level 139, Potassium Level 4.1, Chloride Level 108H, Carbon Dioxide Level 16L, Anion Gap 15, Blood Urea Nitrogen 81H, Creatinine 5.9H, Estimat Glomerular Filtration Rate 11.9, Glucose Level 127H, Uric Acid 9.5H, Calcium Level 6.9L, Phosphorus Level 6.7H, Magnesium Level 2.1, Total Bilirubin 0.7, Gamma Glutamyl Transpeptidase 200H, Aspartate Amino Transf (AST/SGOT) 944H, Alanine Aminotransferase (ALT/SGPT) 1383H, Alkaline Phosphatase 112, Troponin I 1.400H, Pro-B-Type Natriuretic Peptide 30644F, Total Protein 5.0L, Albumin 1.7L, Globulin 3.3, Albumin/ Globulin Ratio 0.5L 10/28/17 04:00: Arterial Blood pH 7.314L, Arterial Blood Partial Pressure CO2 29.9L, Arterial Blood Partial Pressure O2 94.1, Arterial Blood HCO3 14.9L, Arterial Blood Oxygen Saturation 96.0, Arterial Blood Base Excess -10.4, Dipak Test Positive Height (Feet): 5 Height (Inches): 6.00 Weight (Pounds): 205 General Appearance: lethargic EENT: normal ENT inspection Neck: supple Cardiovascular: tachycardia Respiratory/Chest: decreased breath sounds Abdomen: non tender, soft, hypoactive bowel sounds Extremities: non-tender ANGELA WAGONER Oct 28, 2017 08:53
[2017-10-28] MEDS: Metoprolol Tartrate 12.5mg TAB GT SCH ×2 (09:00→21:40)
--- NOTE | 2017-10-28 09:43 | Pulmonolgy Critical Care Note ---
Critical Care - Asmt/Plan Assessment/Plan: ASSESSMENT s/p cardiac arrest ( due to acute GI hemorrhage on 10/26) x 3 acute GI hemorrhage-persistent hypovolemic shock ( due to GI hemorrhage) elevated troponin possible acute SD severely elevated LFT , likely shock liver multiorgan system failure acute anemia of blood loss, requiring 3 u PRBC s/p trach 10/23 trach malfunctioning, s/p trach exchange 10/26 acute renal failure acute hypoxemic RF requiring BiPAP, unable to wean ( s/p trach) severe sepsis with E coli bacteremia ( s/p Rx) E coli UTI ( s/p Rx) C dif colitis probably PNA acute bronchitis possible influenza ( s/p Rx) hematuria lactic acidosis 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 seizure disorder HTN CAD with hx of SD dysphagia, s/p PEG dementia R lateral malleolus DTI PLAN OF CARE ICU BP better off Levophed remains tachycardic and tachypneic IVF, decrease rate cardio eval appreciated serial troponin per cardio eval appreciated per cardio troponin likely due to cardiac arrest x 3, troponin trending down ECHO done- pEF 60-65%, no change from itiial s/p trach exchange due to leak by surgeon, currently trach functional ABG and CXR in am Pulmonary toilet with HHN, suction as needed Protonix gtt s/p emergent EGD , ulcer noted, vessel clipped recurrent bleeding since last night transfuse additional 2 u PRBC Protonix gtt GI follows if bleeding continues, will likely need another GI procedure /exploration for cause s/p 3 u PRBC prior monitor counts, monitor for active bleeding strict asp precautions, s/p PEG, currently NPO a/emetic prn bowel regimen nephro follows monitor renal parameters, correct lytes as needed, avoid nephrotoxic renal US done earlier with normal bilateral kidney echogenicity and no hydro worsening renal parameters , off pressors needs emergent HD discussed with nephro and surgeon surgeon will place Thompson today and HD thereafter per nephro orders dc IVF severely elevated LFT likely due to shock liver, trending down overall multiple organ/system failrue ID follows blood cx + E mitchel, urine cx + E coli, s/p rx Influenza negative ( but rapid test with only sensitivity 60-65%, by history high suspicion for flu), s/p Tamiflu empiric abx leukocytosis persistent stool C dif+ start po Vanco and Flagyl, further management per ID ECHO with pEF 60-65% CTA no PE hold ASA for now due to acute GI bleeding continue BB and statin troponin negative urologist seen and evaluated for hematuria Cervantes seizure precautions, on Depakote , monitor levels condition critical and guarded overall prognosis poor case discussed and evaluated by supervising physician Critical Care - Objective Last 24 Hour Vital Signs Date Time Temp Pulse Resp B/P (MAP) Pulse Ox O2 Delivery O2 Flow Rate FiO2 10/28/17 09:09 98 32 60 18 08:00 60 18 08:00 94 1818 08:00 98.6 94 23 124/65 100 Mechanical Ventilator 60 10/28/17 07:00 102 26 120/71 100 Mechanical Ventilator 60 10/28/17 06:36 101 31 60 18 06:00 103 26 108/71 100 Mechanical Ventilator 60 10/28/17 05:16 100 31 60 10/28/17 05:00 102 29 116/67 100 Mechanical Ventilator 60 10/28/17 04:00 60 18 04:00 98.5 89 21 112/66 100 Mechanical Ventilator 60 10/28/18 03:53 93 10/28/18 03:13 91 23 60 /18/18 03:00 89 23 101/55 100 Mechanical Ventilator 60 18 02:00 91 23 90/53 100 Mechanical Ventilator 60 18 01:16 94 24 60 2/18/18 01:00 89 23 90/69 100 Mechanical Ventilator 60 18 00:00 98.7 91 23 99/58 100 Mechanical Ventilator 60 18 00:00 60 10/27/18 23:45 91 2//18 23:02 93 24 60 2/17/18 23:00 96 25 116/76 100 Mechanical Ventilator 60 10/27/18 22:00 106 29 127/59 100 Mechanical Ventilator 60 10/27/18 21:01 95 26 60 2/17/18 21:00 106 27 103/72 100 Mechanical Ventilator 60 2/18 20:59 98 113/59 2//18 20:00 98.7 99 26 104/60 100 Mechanical Ventilator 60 10/27/18 20:00 104 //18 20:00 60 217/18 19:00 109 30 123/64 98 Mechanical Ventilator 60 2/17/18 18:27 113 33 60 2/17/18 18:00 98.9 102 28 131/64 99 Mechanical Ventilator 60 2/17/18 17:00 109 33 117/57 97 Mechanical Ventilator 60 2/17/18 16:58 107 34 60 2/17/18 16:30 104 33 110/56 99 Mechanical Ventilator 80 2/17/18 16:00 106 29 134/61 100 Mechanical Ventilator 80 2/17/18 16:00 80 2/17/18 16:00 102 2/17/18 15:30 110 28 134/61 99 Mechanical Ventilator 80 2/17/18 15:07 102 29 60 2/17/18 15:00 102 30 115/78 98 Mechanical Ventilator 80 2/17/18 14:30 104 28 137/79 100 Mechanical Ventilator 80 2/17/18 14:00 103 28 134/79 99 Mechanical Ventilator 80 2/17/18 13:30 106 29 126/66 99 Mechanical Ventilator 80 2/17/18 13:15 105 30 127/66 99 Mechanical Ventilator 80 2/17/18 13:10 107 31 60 2/17/18 13:00 106 30 123/66 99 Mechanical Ventilator 80 2/17/18 12:47 125/67 2/17/18 12:45 98.5 104 30 96/60 98 Mechanical Ventilator 80 2/17/18 12:30 106 29 125/67 97 Mechanical Ventilator 80 2/17/18 12:15 106 28 128/68 100 Mechanical Ventilator 80 2/17/18 12:00 111 33 131/68 99 Mechanical Ventilator 80 2/17/18 12:00 111 2/17/18 12:00 80 2/17/18 11:45 114 32 134/69 99 Mechanical Ventilator 80 2/17/18 11:30 100 29 60 2/17/18 11:30 101 29 133/72 100 Mechanical Ventilator 80 2/17/18 11:00 100 28 109/52 100 Mechanical Ventilator 80 2/17/18 10:30 104 31 131/60 100 Mechanical Ventilator 80 2/17/18 10:00 109 33 119/65 96 Mechanical Ventilator 80 Objective: Status: awake, poorly responsive , mild respiratory distress Condition: critical, grave HEENT: atraumatic, normocephalic Neck: trach with Portex #8, secretions thick, gongora, moderate Lungs: few scattered rhonchi , crackles at bases , tachypneic Heart: HR/BP stable, regular, tachy, SR-ST on tele Abdomen: soft, non-tender, active bowel sounds, feeding tube, dark brown drainage, colostomy bag placed, rectal tube with liquid black drainage Extremities: trace edema BLE Micro: Microbiology Date/Time Source Procedure Growth Status 10/26/17 11:10 Blood Blood Culture - Preliminary Gram Positive Cocci Resulted 10/26/17 11:00 Blood Blood Culture - Preliminary NO GROWTH AFTER 24 HOURS Resulted 10/26/17 21:30 Sputum Gram Stain - Final Resulted 10/26/17 21:30 Sputum Sputum Culture Pending Resulted 10/26/17 21:30 Stool Clostridium difficile Toxin Assay - Final Complete Critical Care - Subjective ROS Limited/Unobtainable: Yes Interval Events: bleeding around G tube site and lower GI bleeding HH down to 6.7/19.9 ABG better, pH up to 7.31 worsening renal failure, creat up to 5.9 persistent leukocytosis, cardio seen and evaluated off pressors BP stabilized Condition: critical IV Access: central - RIJ intact EKG Rhythm: Sinus Rhythm FI02: 60 Vent Support Breath Rate: 18 Vent Support Mode: AC Vent Tidal Volume: 550 Sputum Amount: Small PEEP: 10.0 PIP: 24 Fluids: D51/2 NS at 75 Drips: Protonix gtt at 25 ml/hr Tube Feeding Amount: 20 I&O: Intake and Output 10/27/17 10/28/17 19:00 07:00 Intake Total 100 ml 1485 ml Output Total 0 ml 410 ml Balance 100 ml 1075 ml IV Total 100 ml 1455 ml Other 30 ml Output Urine Total 0 ml 10 ml Stool Total 400 ml CXR: 10/28 - Patchy infiltrates. ET-Tube: 8.0 ET Position: 24 [place] [facility] Oct 28, 2017 09:43
[2017-10-28] MEDS: Vancomycin oral 125mg/2.5ml ORAL SCH ×4 (09:59→20:46)
[2017-10-28] MEDS ORDERED: D5 1/2NS 1,000 ML IV SCH (10:00)
--- NOTE | 2017-10-28 10:39 | Cardiology Progress Note ---
Assessment/Plan Assessment/Plan 1. Cardiopulmonary arrest on three separate occasions. 2. Massive gastrointestinal bleed. 3. Encephalopathy. 4. Abnormal liver function tests, likely shock liver. 5. Acute renal failure. 6. Anemia. 7. NSTEMI type2 post related to cardiopulmonary resuscitation and renal insufficiency. 8. Chronic respiratory failure. 9. History of cerebrovascular accident. hgb dropping again but hemodynamically stable has received 1 unti fo prbc will repeat cbc now trop down trending echo yest showed lv function to be adequate the rv was little enlarged will have venous duplex lft down trending wbc is sig elevated empiric abx pending dialysis dark blood in stool and around the g tube seems little more responsive than yest track with his eye and blinks to threat d/w rn tle reviewed Subjective ROS Limited/Unobtainable: Yes Objective Last 24 Hour Vital Signs Date Time Temp Pulse Resp B/P (MAP) Pulse Ox O2 Delivery O2 Flow Rate FiO2 10/28/17 09:09 98 32 60 10/28/17 09:00 98 115/65 10/28/17 08:00 60 10/28/17 08:00 94 10/28/17 08:00 98.6 94 23 124/65 100 Mechanical Ventilator 60 10/28/17 07:00 102 26 120/71 100 Mechanical Ventilator 60 10/28/17 06:36 101 31 60 18 06:00 103 26 108/71 100 Mechanical Ventilator 60 10/28/17 05:16 100 31 60 18 05:00 102 29 116/67 100 Mechanical Ventilator 60 10/28/17 04:00 60 10/28/17 04:00 98.5 89 21 112/66 100 Mechanical Ventilator 60 10/28/17 03:53 93 1818 03:13 91 23 60 1818 03:00 89 23 101/55 100 Mechanical Ventilator 60 18 02:00 91 23 90/53 100 Mechanical Ventilator 60 10/28/17 01:16 94 24 60 1818 01:00 89 23 90/69 100 Mechanical Ventilator 60 1818 00:00 98.7 91 23 99/58 100 Mechanical Ventilator 60 10/28/17 00:00 60 10/27/17 23:45 91 10/27/17 23:02 93 24 60 18 23:00 96 25 116/76 100 Mechanical Ventilator 60 2/17/18 22:00 106 29 127/59 100 Mechanical Ventilator 60 2/17/18 21:01 95 26 60 2/17/18 21:00 106 27 103/72 100 Mechanical Ventilator 60 2/17/18 20:59 98 113/59 2/17/18 20:00 98.7 99 26 104/60 100 Mechanical Ventilator 60 2/17/18 20:00 104 2/17/18 20:00 60 2/17/18 19:00 109 30 123/64 98 Mechanical Ventilator 60 2/17/18 18:27 113 33 60 2/17/18 18:00 98.9 102 28 131/64 99 Mechanical Ventilator 60 2/17/18 17:00 109 33 117/57 97 Mechanical Ventilator 60 2/17/18 16:58 107 34 60 2/17/18 16:30 104 33 110/56 99 Mechanical Ventilator 80 2/17/18 16:00 106 29 134/61 100 Mechanical Ventilator 80 2/17/18 16:00 80 2/17/18 16:00 102 2/17/18 15:30 110 28 134/61 99 Mechanical Ventilator 80 2/17/18 15:07 102 29 60 2/17/18 15:00 102 30 115/78 98 Mechanical Ventilator 80 2/17/18 14:30 104 28 137/79 100 Mechanical Ventilator 80 2/17/18 14:00 103 28 134/79 99 Mechanical Ventilator 80 2/17/18 13:30 106 29 126/66 99 Mechanical Ventilator 80 2/17/18 13:15 105 30 127/66 99 Mechanical Ventilator 80 2/17/18 13:10 107 31 60 2/17/18 13:00 106 30 123/66 99 Mechanical Ventilator 80 2/17/18 12:47 125/67 2/17/18 12:45 98.5 104 30 96/60 98 Mechanical Ventilator 80 2/17/18 12:30 106 29 125/67 97 Mechanical Ventilator 80 2/17/18 12:15 106 28 128/68 100 Mechanical Ventilator 80 2/17/18 12:00 111 33 131/68 99 Mechanical Ventilator 80 2/17/18 12:00 111 2/17/18 12:00 80 2/17/18 11:45 114 32 134/69 99 Mechanical Ventilator 80 2/17/18 11:30 100 29 60 2/17/18 11:30 101 29 133/72 100 Mechanical Ventilator 80 10/27/17 11:00 100 28 109/52 100 Mechanical Ventilator 80 General Appearance: no apparent distress, obese, on vent Cardiovascular: normal rate, regular rhythm Respiratory/Chest: lungs clear, normal breath sounds Abdomen: normal bowel sounds, non tender, soft Extremities: no swelling Intake and Output 10/27/17 10/28/17 19:00 07:00 Intake Total 100 ml 1485 ml Output Total 0 ml 410 ml Balance 100 ml 1075 ml IV Total 100 ml 1455 ml Other 30 ml Output Urine Total 0 ml 10 ml Stool Total 400 ml Laboratory Tests Test 10/28/17 03:20 10/28/17 04:00 White Blood Count 40.7 K/UL (4.8-10.8) *H Red Blood Count 2.25 M/UL (4.70-6.10) L Hemoglobin 6.7 G/DL (14.2-18.0) *L Hematocrit 19.9 % (42.0-52.0) L Mean Corpuscular Volume 88 FL (80-99) Mean Corpuscular Hemoglobin 29.6 PG (27.0-31.0) Mean Corpuscular Hemoglobin Concent 33.5 G/DL (32.0-36.0) Red Cell Distribution Width 14.6 % (11.6-14.8) Platelet Count 243 K/UL (150-450) Mean Platelet Volume 6.6 FL (6.5-10.1) Neutrophils (%) (Auto) % (45.0-75.0) Lymphocytes (%) (Auto) % (20.0-45.0) Monocytes (%) (Auto) % (1.0-10.0) Eosinophils (%) (Auto) % (0.0-3.0) Basophils (%) (Auto) % (0.0-2.0) Differential Total Cells Counted 100 Neutrophils % (Manual) 80 % (45-75) H Lymphocytes % (Manual) 6 % (20-45) L Monocytes % (Manual) 4 % (1-10) Eosinophils % (Manual) 0 % (0-3) Basophils % (Manual) 0 % (0-2) Myelocytes % 3 % (0-0) H Band Neutrophils 7 % (0-8) Platelet Estimate Adequate Platelet Morphology Normal Hypochromasia 1+ Anisocytosis 1+ Sodium Level 139 MMOL/L (136-145) Potassium Level 4.1 MMOL/L (3.5-5.1) Chloride Level 108 MMOL/L (98-107) H Carbon Dioxide Level 16 MMOL/L (21-32) L Anion Gap 15 mmol/L (5-15) Blood Urea Nitrogen 81 mg/dL (7-18) H Creatinine 5.9 MG/DL (0.55-1.30) H Estimat Glomerular Filtration Rate 11.9 mL/min (>60) Glucose Level 127 MG/DL (74-106) H Lactic Acid Level 1.40 mmol/L (0.66-2.22) Uric Acid 9.5 MG/DL (2.6-7.2) H Calcium Level 6.9 MG/DL (8.5-10.1) L Phosphorus Level 6.7 MG/DL (2.5-4.9) H Magnesium Level 2.1 MG/DL (1.8-2.4) Total Bilirubin 0.7 MG/DL (0.2-1.0) Gamma Glutamyl Transpeptidase 200 U/L (5-85) H Aspartate Amino Transf (AST/SGOT) 944 U/L (15-37) H Alanine Aminotransferase (ALT/SGPT) 1383 U/L (12-78) H Alkaline Phosphatase 112 U/L (46-116) Troponin I 1.400 ng/mL (0.000-0.056) Pro-B-Type Natriuretic Peptide 22496 pg/mL (0-125) H Total Protein 5.0 G/DL (6.4-8.2) L Albumin 1.7 G/DL (3.4-5.0) L Globulin 3.3 g/dL Albumin/Globulin Ratio 0.5 (1.0-2.7) L Arterial Blood pH 7.314 (7.350-7.450) Arterial Blood Partial Pressure CO2 29.9 mmHg (35.0-45.0) L Arterial Blood Partial Pressure O2 94.1 mmHg (75.0-100.0) Arterial Blood HCO3 14.9 mmol/L (22.0-26.0) L Arterial Blood Oxygen Saturation 96.0 % (92.0-98.0) Arterial Blood Base Excess -10.4 Dipak Test Positive Microbiology Date/Time Source Procedure Growth Status 10/26/17 11:10 Blood Blood Culture - Preliminary Gram Positive Cocci Resulted 10/26/17 11:00 Blood Blood Culture - Preliminary NO GROWTH AFTER 24 HOURS Resulted 10/26/17 21:30 Sputum Gram Stain - Final Resulted 10/26/17 21:30 Sputum Sputum Culture - Preliminary NO GROWTH Resulted 10/26/17 21:30 Stool Clostridium difficile Toxin Assay - Final Complete 10/26/17 22:00 Urine,Clean Catch Urine Culture - Preliminary NO GROWTH AFTER 24 HOURS Resulted CHRISTEN LOVE Oct 28, 2017 10:39
--- NOTE | 2017-10-28 10:46 | Nephrology Progress Note ---
Assessment/Plan Problem List: (1) Acute renal failure (ARF) (2) Respiratory failure (3) Shock liver Assessment JULIA , due to Shock , Hemorrhagic / Septic Off Pressors- Bleeding again Shock liver High Troponin: MO Bradycardic - Vfib cardiac arrest 10/26 likely 2ry to hemorrhagic shock (drop Hgb 10.8 to 5) - GIB- Fever, ongoing Leukocytosis, worsening after code E.coli UTI w/ bacteremia Acute hypoxic resp failure- s/p Trach . Plan Plan: BP stablized HD trial after cath insertion today ordered Poor Prognosis- Hemodynamic support monitor urine out put and Renal parameters Albumin bollous given yesterday stop Hydrocortison Off pressors Objective Objective Last 24 Hour Vital Signs Date Time Temp Pulse Resp B/P (MAP) Pulse Ox O2 Delivery O2 Flow Rate FiO2 10/28/17 09:09 98 32 60 10/28/17 09:00 98 115/65 10/28/17 08:00 60 10/28/17 08:00 94 10/28/17 08:00 98.6 94 23 124/65 100 Mechanical Ventilator 60 10/28/17 07:00 102 26 120/71 100 Mechanical Ventilator 60 18 06:36 101 31 60 2/18/18 06:00 103 26 108/71 100 Mechanical Ventilator 60 10/28/17 05:16 100 31 60 18/18 05:00 102 29 116/67 100 Mechanical Ventilator 60 18 04:00 60 18/18 04:00 98.5 89 21 112/66 100 Mechanical Ventilator 60 10/28/17 03:53 93 18 03:13 91 23 60 18/18 03:00 89 23 101/55 100 Mechanical Ventilator 60 18/18 02:00 91 23 90/53 100 Mechanical Ventilator 60 18/18 01:16 94 24 60 218/18 01:00 89 23 90/69 100 Mechanical Ventilator 60 1818 00:00 98.7 91 23 99/58 100 Mechanical Ventilator 60 218/18 00:00 60 2/17/18 23:45 91 18 23:02 93 24 60 10/27/18 23:00 96 25 116/76 100 Mechanical Ventilator 60 18 22:00 106 29 127/59 100 Mechanical Ventilator 60 2/17/18 21:01 95 26 60 2/17/18 21:00 106 27 103/72 100 Mechanical Ventilator 60 2/17/18 20:59 98 113/59 2/17/18 20:00 98.7 99 26 104/60 100 Mechanical Ventilator 60 2/17/18 20:00 104 2/17/18 20:00 60 2/17/18 19:00 109 30 123/64 98 Mechanical Ventilator 60 2/17/18 18:27 113 33 60 2/17/18 18:00 98.9 102 28 131/64 99 Mechanical Ventilator 60 2/17/18 17:00 109 33 117/57 97 Mechanical Ventilator 60 2/17/18 16:58 107 34 60 2/17/18 16:30 104 33 110/56 99 Mechanical Ventilator 80 2/17/18 16:00 106 29 134/61 100 Mechanical Ventilator 80 2/17/18 16:00 80 2/17/18 16:00 102 2/17/18 15:30 110 28 134/61 99 Mechanical Ventilator 80 2/17/18 15:07 102 29 60 2/17/18 15:00 102 30 115/78 98 Mechanical Ventilator 80 2/17/18 14:30 104 28 137/79 100 Mechanical Ventilator 80 2/17/18 14:00 103 28 134/79 99 Mechanical Ventilator 80 2/17/18 13:30 106 29 126/66 99 Mechanical Ventilator 80 2/17/18 13:15 105 30 127/66 99 Mechanical Ventilator 80 2/17/18 13:10 107 31 60 2/17/18 13:00 106 30 123/66 99 Mechanical Ventilator 80 2/17/18 12:47 125/67 2/17/18 12:45 98.5 104 30 96/60 98 Mechanical Ventilator 80 2/17/18 12:30 106 29 125/67 97 Mechanical Ventilator 80 2/17/18 12:15 106 28 128/68 100 Mechanical Ventilator 80 2/17/18 12:00 111 33 131/68 99 Mechanical Ventilator 80 2/17/18 12:00 111 2/17/18 12:00 80 2/17/18 11:45 114 32 134/69 99 Mechanical Ventilator 80 2/17/18 11:30 100 29 60 2/17/18 11:30 101 29 133/72 100 Mechanical Ventilator 80 2/17/18 11:00 100 28 109/52 100 Mechanical Ventilator 80 Intake and Output 10/27/17 10/28/17 19:00 07:00 Intake Total 100 ml 1485 ml Output Total 0 ml 410 ml Balance 100 ml 1075 ml IV Total 100 ml 1455 ml Other 30 ml Output Urine Total 0 ml 10 ml Stool Total 400 ml Laboratory Tests 10/28/17 03:20: White Blood Count 40.7*H, Red Blood Count 2.25L, Hemoglobin 6.7*L, Hematocrit 19.9L, Mean Corpuscular Volume 88, Mean Corpuscular Hemoglobin 29.6, Mean Corpuscular Hemoglobin Concent 33.5, Red Cell Distribution Width 14.6, Platelet Count 243, Mean Platelet Volume 6.6, Neutrophils (%) (Auto) , Lymphocytes (%) ( Auto) , Monocytes (%) (Auto) , Eosinophils (%) (Auto) , Basophils (%) (Auto) , Differential Total Cells Counted 100, Neutrophils % (Manual) 80H, Lymphocytes % (Manual) 6L, Monocytes % (Manual) 4, Eosinophils % (Manual) 0, Basophils % ( Manual) 0, Myelocytes % 3H, Band Neutrophils 7, Platelet Estimate Adequate, Platelet Morphology Normal, Hypochromasia 1+, Anisocytosis 1+, Sodium Level 139 , Potassium Level 4.1, Chloride Level 108H, Carbon Dioxide Level 16L, Anion Gap 15, Blood Urea Nitrogen 81H, Creatinine 5.9H, Estimat Glomerular Filtration Rate 11.9, Glucose Level 127H, Lactic Acid Level 1.40, Uric Acid 9.5H, Calcium Level 6.9L, Phosphorus Level 6.7H, Magnesium Level 2.1, Total Bilirubin 0.7, Gamma Glutamyl Transpeptidase 200H, Aspartate Amino Transf (AST/SGOT) 944H, Alanine Aminotransferase (ALT/SGPT) 1383H, Alkaline Phosphatase 112, Troponin I 1.400H, Pro-B-Type Natriuretic Peptide 77698Z, Total Protein 5.0L, Albumin 1.7L , Globulin 3.3, Albumin/Globulin Ratio 0.5L 10/28/17 04:00: Arterial Blood pH 7.314L, Arterial Blood Partial Pressure CO2 29.9L, Arterial Blood Partial Pressure O2 94.1, Arterial Blood HCO3 14.9L, Arterial Blood Oxygen Saturation 96.0, Arterial Blood Base Excess -10.4, Dipak Test Positive Height (Feet): 5 Height (Inches): 6.00 Weight (Pounds): 205 Objective no other change YVES SINHA Oct 28, 2017 10:46
[2017-10-28] MEDS ORDERED: LORazepam Inj 2mg/ml 1ml IV PRN (11:00)
[2017-10-28 11:27] LABS: HEMATOCRIT 23.8 % (42.0-52.0); HEMOGLOBIN 7.9 G/DL (14.2-18.0); MEAN CORPUSCULAR VOLUME 89 FL (80-99); PLATELET COUNT 245 K/UL (150-450); RED BLOOD COUNT 2.68 M/UL (4.70-6.10); RED CELL DISTRIBUTION WIDTH 14.1 % (11.6-14.8)
[2017-10-28 11:39] LABS: WHITE BLOOD COUNT 41.4 K/UL (4.8-10.8)
--- NOTE | 2017-10-28 11:44 | Diagnostic Imaging Report ---
Indication: Dyspnea Comparison: 10/27/2017 A single view chest radiograph was obtained. Findings: Patchy infiltrates demonstrated bilaterally. Heart size remains normal. There is a right-sided Tracheostomy noted. IMPRESSION: Patchy infiltrates. No change
--- NOTE | 2017-10-28 12:38 | Operative Note - PDOC ---
Operative Note Operative Note Date of Operation/Procedure: Oct 28, 2017 Pre-op Diagnosis: renal insufficiency Procedure: right femoral HD catheter insertion Post-op Diagnosis: same as pre-op Surgeon: joe Anesthesia: local Specimen: none Complications: none Condition: stable Fluids: n/a Estimated Blood Loss: none Drains: none Implant(s) used?: Yes - HD cath Indications for Procedure 61 year old male currently in ICU under care and management. unfortunately renal insufficiency requiring urgent dialysis. HD line needed. Surgery called. Risks, benefits, and alternatives discussed with patients mother Andrew Stearns who consented to procedure. Description of Procedure Patient was made comfortable at bedside. Right femoral site to be used. A time -out was completed verifying correct patient, procedure, site, positioning, and special equipment if applicable. The patient was placed in a dependent position appropriate for central line placement based on the vein to be cannulated. The patients right groin was prepped and draped in sterile fashion. 1% Lidocaine was used to anesthetize the surrounding skin area. A HD catheter was introduced into the the femoral vein using the Seldinger technique. The catheter was threaded smoothly over the guide wire and appropriate blood return was obtained. Each lumen of the catheter was evacuated of air and flushed with sterile saline. The catheter was then sutured in place to the skin and a sterile dressing applied. Perfusion to the extremity distal to the point of catheter insertion was checked and found to be adequate. Darren Esteban Oct 28, 2017 12:38
[2017-10-28] MEDS: Pantoprazole 80 MG in NS 250 ML IV SCH ×2 (12:55→22:32)
[2017-10-28] MEDS: Meropenem 500mg/NS 55ml IVPB SCH ×4 (12:56→22:32)
[2017-10-28] MEDS: Phenylephrine 50 MG in D5W 245 ML IV SCH (14:15)
[2017-10-28] MEDS: Dyna-Hex 2% Top Sol 2oz TOPIC SCH (19:36)
--- NOTE | 2017-10-28 22:49 | Wound Nurse Progress Note ---
Wound RN Progress Note Wound Consult #1 Right lateral malleolus SDTI pressure ulcer. Skin still intact #2 Left anterior lower leg open wound. Etiology unknown. with dry scabs forming. Good progress noted #3 Right dorsal foot dry scab. Still intact Reassessed this Pt. No deterioration noted. Will cont the same wound care treatment and recommendation Recommendation -Local wound care per protocol -Keep clean and dry -Optimize nutrition -Turn and reposition -Heel protector on both heels -Offload both heels -Low air loss mattress -Assess and f/u accordingly for any changes LUISA LOERA RN Oct 28, 2017 22:49
[2017-10-29] VITALS (24 sets, daily range): BP systolic 113–144; BP diastolic 60–112
[2017-10-29] MEDS: Flagyl 500mg/NS 100ml Pre-Mix IV SCH ×3 (05:28→21:34)
[2017-10-29 05:34] LABS: HEMATOCRIT 25.7 % (42.0-52.0); HEMOGLOBIN 8.9 G/DL (14.2-18.0); MEAN CORPUSCULAR VOLUME 87 FL (80-99); PLATELET COUNT 232 K/UL (150-450); RED BLOOD COUNT 2.97 M/UL (4.70-6.10); RED CELL DISTRIBUTION WIDTH 13.8 % (11.6-14.8)
[2017-10-29 05:46] LABS: WHITE BLOOD COUNT 37.3 K/UL (4.8-10.8)
[2017-10-29 05:49] LABS: ANION GAP 11 mmol/L (5-15); BLOOD UREA NITROGEN 63 mg/dL (7-18); CALCIUM 7.3 MG/DL (8.5-10.1); CARBON DIOXIDE 26 MMOL/L (21-32); CHLORIDE 105 MMOL/L (98-107); CREATININE 4.6 MG/DL (0.55-1.30); POTASSIUM 2.9 MMOL/L (3.5-5.1); SODIUM 142 MMOL/L (136-145)
[2017-10-29] MEDS: Valproic Acid 250mg/5ml Liquid GT SCH (06:29)
[2017-10-29] MEDS: Pantoprazole 80 MG in NS 250 ML IV SCH ×2 (08:19→18:13)
--- NOTE | 2017-10-29 09:27 | Pulmonolgy Critical Care Note ---
Critical Care - Asmt/Plan Assessment/Plan: ASSESSMENT s/p cardiac arrest x3 ( due to acute GI hemorrhage on 10/26) acute GI hemorrhage-persistent hypovolemic shock ( due to GI hemorrhage) elevated troponin likely due to shocks during cardiac arrest possible acute SD severely elevated LFT , likely shock liver multiorgan system failure acute anemia of blood loss, requiring 3 u PRBC s/p trach 10/23 trach malfunctioning, s/p trach exchange 10/26 acute renal failure, requiring start HD ( started 10/28) acute hypoxemic RF requiring BiPAP, unable to wean ( s/p trach) severe sepsis with E coli bacteremia ( s/p Rx) E coli UTI ( s/p Rx) C dif colitis probably PNA acute bronchitis possible influenza ( s/p Rx) hematuria lactic acidosis 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 seizure disorder HTN CAD with hx of SD dysphagia, s/p PEG leaking G tube dementia R lateral malleolus DTI PLAN OF CARE ICU BP better off Levophed HD catheter placed and started on HD 10/28 nephro follows creat down to 4.6 today monitor renal parameters, correct lytes as needed, avoid nephrotoxic renal US done earlier with normal bilateral kidney echogenicity and no hydro per cardio troponin likely due to cardiac arrest x 3 due to shocks, troponin trending down ECHO done- pEF 60-65%, no change from initial s/p trach exchange due to leak by surgeon, currently trach functional daily ABG and CXR in am Pulmonary toilet with HHN, suction as needed Protonix gtt s/p emergent EGD , ulcer noted, vessel clipped recurrent bleeding since last night s/p transfusion additional 2 u PRBC 10/28 GI follows leaking G tube s/p 3 u PRBC prior monitor counts, monitor for active bleeding strict asp precautions, s/p PEG, currently NPO a/emetic prn bowel regimen severely elevated LFT likely due to shock liver, trending down overall multiple organ/system failure ID follows blood cx + E coli, urine cx + E coli, s/p rx Influenza negative ( but rapid test with only sensitivity 60-65%, by history high suspicion for flu), s/p Tamiflu empiric abx leukocytosis persistent stool C dif+ start po Vanco and Flagyl, further management per ID ECHO with pEF 60-65% CTA no PE hold ASA for now due to acute GI bleeding continue BB and statin troponin negative urologist seen and evaluated for hematuria Cervantes seizure precautions, on Depakote , monitor levels condition critical and guarded overall prognosis poor case discussed and evaluated by supervising physician Critical Care - Objective Last 24 Hour Vital Signs Date Time Temp Pulse Resp B/P (MAP) Pulse Ox O2 Delivery O2 Flow Rate FiO2 10/29/17 08:00 127/69 2/18 07:00 91 26 144/112 100 Mechanical Ventilator 60 10/29/18 06:59 96 22 60 2/19/18 06:00 88 26 126/67 100 Mechanical Ventilator 60 2/19/18 05:29 97 28 60 2/19/18 05:00 96 26 128/68 100 Mechanical Ventilator 60 10/29/18 04:00 98.7 93 22 119/65 100 Mechanical Ventilator 60 10/29/18 04:00 60 2//18 03:28 96 23 60 2//18 03:21 96 2/19/18 03:00 93 23 125/62 100 Mechanical Ventilator 60 10/29/18 02:00 88 19 113/60 100 Mechanical Ventilator 60 10/29/18 01:05 95 25 60 2/19/18 01:00 97 24 125/65 100 Mechanical Ventilator 60 2/18 00:24 93 2/19/18 00:00 98.7 97 27 120/68 100 Mechanical Ventilator 60 2/18/18 23:21 96 25 60 2/18/18 23:00 93 25 124/65 100 Mechanical Ventilator 60 2/18/18 22:00 102 19 127/63 100 Mechanical Ventilator 60 2/18/18 21:40 103 132/65 2/18/18 21:18 92 21 60 2/18/18 21:00 94 20 120/59 100 Mechanical Ventilator 60 2/18/18 20:00 60 2/18/18 20:00 98.7 101 29 124/93 100 Mechanical Ventilator 60 2/18/18 19:40 100 2/18/18 19:38 105 32 60 2/18/18 19:30 98.3 105 36 142/74 Mechanical Ventilator 105 2/18/18 19:30 Mechanical Ventilator 60 2/18/18 19:00 95 25 143/77 99 Mechanical Ventilator 60 2/18/18 18:00 92 26 147/82 100 Mechanical Ventilator 60 2/18/18 17:37 Mechanical Ventilator 15.0 60 2/18/18 17:00 94 25 130/75 100 Mechanical Ventilator 60 10/28/17 16:00 98.0 101 36 144/83 Endotracheal Tube 60 10/28/17 16:00 Mechanical Ventilator 60 10/28/17 16:00 60 10/28/17 16:00 95 10/28/17 15:23 99 31 60 10/28/17 14:15 98 120/80 10/28/17 13:04 98 34 60 10/28/17 13:00 95 22 120/80 100 Mechanical Ventilator 60 10/28/17 12:00 60 10/28/17 12:00 98.5 99 25 130/80 100 Mechanical Ventilator 60 10/28/17 12:00 92 10/28/17 11:00 92 26 122/75 100 Mechanical Ventilator 60 10/28/17 10:43 95 31 60 10/28/17 10:00 95 24 121/73 100 Mechanical Ventilator 60 Objective: Status: awake, poorly responsive , mild respiratory distress Condition: critical, grave HEENT: atraumatic, normocephalic Neck: trach with Portex #8, secretions thick, gongora, moderate Lungs: few scattered rhonchi , crackles at bases , tachypneic Heart: HR/BP stable, regular, tachy, SR- tele , RIJ CL intact, R fem HD catheter intact Abdomen: soft, non-tender, active bowel sounds, feeding tube, dark brown drainage, colostomy bag placed, rectal tube with liquid black drainage Extremities: trace edema BLE Micro: Microbiology Date/Time Source Procedure Growth Status 10/26/17 11:10 Blood Blood Culture - Final Staphylococcus Sp Coag Neg Complete 10/26/17 11:00 Blood Blood Culture - Preliminary NO GROWTH AFTER 48 HOURS Resulted 10/26/17 21:30 Sputum Gram Stain - Final Complete 10/26/17 21:30 Sputum Culture - Final Jessica Albicans Complete 10/26/17 21:30 Stool Clostridium difficile Toxin Assay - Final Complete 10/26/17 22:00 Urine,Clean Catch Urine Culture - Final NO GROWTH AFTER 48 HOURS Complete Critical Care - Subjective ROS Limited/Unobtainable: Yes Interval Events: still high leukocytosis, trending down,afebrile, HD initiated 10/28 after Thompson catheter was placed at bedside creat down to 4.6 FiO2 down to 60%, ABG stable, BP stable stable on current vent settings, no signs of resp distress HH up after additional 2 units G tube leaking Condition: critical IV Access: central - R jugular CL intact , Thompson R femoral EKG Rhythm: Sinus Rhythm FI02: 60 Vent Support Breath Rate: 18 Vent Support Mode: AC Vent Tidal Volume: 550 Sputum Amount: Small PEEP: 10.0 PIP: 22 Drips: Protonix gtt at 25 ml/hr Tube Feeding Amount: 20 I&O: Intake and Output 10/28/17 10/29/17 19:00 07:00 Intake Total 380 ml 615 ml Output Total 280 ml 1050 ml Balance 100 ml -435 ml IV Total 380 ml 555 ml Other 60 ml Output Urine Total 0 ml 0 ml Stool Total 200 ml 50 ml Hemodialysis UF 1000 ml Other 80 ml CXR: 10/29 Stable satisfactory positions of tracheostomy, right subclavian central venous catheter. Patchy opacities are again demonstrated at both lung bases and right perihilar region. The heart size is normal. Findings are overall unchanged ET-Tube: 8.0 ET Position: 24 [place] ([place])Pippa NP Oct 29, 2017 09:26
[2017-10-29] MEDS: Vancomycin oral 125mg/2.5ml ORAL SCH ×4 (09:36→20:35)
[2017-10-29] MEDS: Metoprolol Tartrate 12.5mg TAB GT SCH ×2 (09:37→20:35)
--- NOTE | 2017-10-29 10:28 | Diagnostic Imaging Report ---
Indication: Shortness of breath Technique: One view of the chest Comparison: 10/28/2017 Findings: Stable satisfactory positions of tracheostomy, right subclavian central venous catheter. Patchy opacities are again demonstrated at both lung bases and right perihilar region. The heart size is normal. Findings are overall unchanged Impression: Unchanged, over one day, findings as above.
[2017-10-29] MEDS: Meropenem 500mg/NS 55ml IVPB SCH ×4 (11:02→23:00)
[2017-10-29] MEDS ORDERED: Albuterol/Ipratropium 3ml neb HHN PRN (11:45)
--- NOTE | 2017-10-29 12:00 | Nephrology Progress Note ---
Assessment/Plan Problem List: (1) Acute renal failure (ARF) (2) Respiratory failure (3) Shock liver Assessment JULIA , due to Shock , Hemorrhagic / Septic / C dif colitis Off Pressors- Shock liver High Troponin: CT Bradycardic - Vfib cardiac arrest 10/26 likely 2ry to hemorrhagic shock (drop Hgb 10.8 to 5) - GIB- Fever, ongoing Leukocytosis, worsening after code E.coli UTI w/ bacteremia Acute hypoxic resp failure- s/p Trach . Plan Plan: BP stablized HD trial after cath insertion done 10/28 repeat dialysis 10/30 on C dif treatment protocol Poor Prognosis- Hemodynamic support monitor urine out put and Renal parameters Subjective ROS Limited/Unobtainable: Yes Constitutional: Reports: malaise Objective Objective Last 24 Hour Vital Signs Date Time Temp Pulse Resp B/P (MAP) Pulse Ox O2 Delivery O2 Flow Rate FiO2 10/29/17 11:10 84 22 45 10/29/17 11:00 85 22 119/68 100 Mechanical Ventilator 60 10/29/17 10:00 90 25 125/71 100 Mechanical Ventilator 60 10/29/17 09:45 45 10/29/17 09:37 93 128/72 10/29/17 09:18 87 22 60 10/29/17 09:00 88 23 129/71 100 Mechanical Ventilator 60 10/29/17 08:00 60 10/29/17 08:00 127/69 10/29/17 08:00 90 10/29/17 08:00 97.9 91 25 123/71 100 Mechanical Ventilator 60 10/29/17 07:00 91 26 144/112 100 Mechanical Ventilator 60 10/29/17 06:59 96 22 60 10/29/17 06:00 88 26 126/67 100 Mechanical Ventilator 60 10/29/17 05:29 97 28 60 10/29/17 05:00 96 26 128/68 100 Mechanical Ventilator 60 10/29/17 04:00 98.7 93 22 119/65 100 Mechanical Ventilator 60 10/29/17 04:00 60 10/29/17 03:28 96 23 60 18 03:21 96 10/29/17 03:00 93 23 125/62 100 Mechanical Ventilator 60 10/29/17 02:00 88 19 113/60 100 Mechanical Ventilator 60 10/29/17 01:05 95 25 60 2/19/18 01:00 97 24 125/65 100 Mechanical Ventilator 60 2/18 00:24 93 2//18 00:00 98.7 97 27 120/68 100 Mechanical Ventilator 60 2/18/18 23:21 96 25 60 2/18/18 23:00 93 25 124/65 100 Mechanical Ventilator 60 2/18/18 22:00 102 19 127/63 100 Mechanical Ventilator 60 218/18 21:40 103 132/65 2/18/18 21:18 92 21 60 2/18/18 21:00 94 20 120/59 100 Mechanical Ventilator 60 218/18 20:00 60 2/18/18 20:00 98.7 101 29 124/93 100 Mechanical Ventilator 60 2/18/18 19:40 100 /18/18 19:38 105 32 60 18/18 19:30 98.3 105 36 142/74 Mechanical Ventilator 105 18/18 19:30 Mechanical Ventilator 60 10/28/18 19:00 95 25 143/77 99 Mechanical Ventilator 60 10/28/18 18:00 92 26 147/82 100 Mechanical Ventilator 60 10/28/18 17:37 Mechanical Ventilator 15.0 60 2/18/18 17:00 94 25 130/75 100 Mechanical Ventilator 60 18/18 16:00 98.0 101 36 144/83 Endotracheal Tube 60 18 16:00 Mechanical Ventilator 60 18 16:00 60 18/18 16:00 95 18 15:23 99 31 60 10/28/18 14:15 98 120/80 18 13:04 98 34 60 10/28/18 13:00 95 22 120/80 100 Mechanical Ventilator 60 18 12:00 60 18/18 12:00 98.5 99 25 130/80 100 Mechanical Ventilator 60 18/18 12:00 92 Intake and Output 10/28/17 10/29/17 19:00 07:00 Intake Total 380 ml 615 ml Output Total 280 ml 1050 ml Balance 100 ml -435 ml IV Total 380 ml 555 ml Other 60 ml Output Urine Total 0 ml 0 ml Stool Total 200 ml 50 ml Hemodialysis UF 1000 ml Other 80 ml Laboratory Tests 10/29/17 03:25: White Blood Count 37.3*H, Red Blood Count 2.97L, Hemoglobin 8.9L, Hematocrit 25.7L, Mean Corpuscular Volume 87, Mean Corpuscular Hemoglobin 29.8, Mean Corpuscular Hemoglobin Concent 34.4, Red Cell Distribution Width 13.8, Platelet Count 232, Mean Platelet Volume 6.7, Neutrophils (%) (Auto) , Lymphocytes (%) ( Auto) , Monocytes (%) (Auto) , Eosinophils (%) (Auto) , Basophils (%) (Auto) , Differential Total Cells Counted 100, Neutrophils % (Manual) 89H, Lymphocytes % (Manual) 5L, Monocytes % (Manual) 6, Eosinophils % (Manual) 0, Basophils % ( Manual) 0, Band Neutrophils 0, Platelet Estimate Adequate, Platelet Morphology Normal, Hypochromasia 2+, Sodium Level 142, Potassium Level 2.9L, Chloride Level 105, Carbon Dioxide Level 26, Anion Gap 11, Blood Urea Nitrogen 63H, Creatinine 4.6H, Estimat Glomerular Filtration Rate 15.9, Glucose Level 80, Calcium Level 7.3L, Random Vancomycin Level 25.7 10/29/17 09:40: Arterial Blood pH 7.450, Arterial Blood Partial Pressure CO2 36.4, Arterial Blood Partial Pressure O2 161.4H, Arterial Blood HCO3 24.7, Arterial Blood Oxygen Saturation 98.1H, Arterial Blood Base Excess 0.9, Dipak Test Positive Height (Feet): 5 Height (Inches): 6.00 Weight (Pounds): 202 General Appearance: no apparent distress Cardiovascular: tachycardia Respiratory/Chest: decreased breath sounds Abdomen: other - watery diarrhea Objective no other change YVES SINHA Oct 29, 2017 12:00
--- NOTE | 2017-10-29 12:32 | GI Progress Note ---
Assessment/Plan Problems: (1) Dysphagia ICD Codes: R13.10 - Dysphagia, unspecified SNOMED: 85060678, 212598651 (2) Dementia ICD Codes: F03.90 - Unspecified dementia without behavioral disturbance SNOMED: 07092864 (3) PEG (percutaneous endoscopic gastrostomy) adjustment/replacement/removal ICD Codes: Z43.1 - Encounter for attention to gastrostomy SNOMED: 267866190, 443185288 (4) CVA, old, hemiparesis ICD Codes: I69.359 - Hemiplegia and hemiparesis following cerebral infarction affecting unspecified side SNOMED: 46021858, 42828641, [id number] Status: unchanged Status Narrative Discussed with Dr. Campos. Assessment/Plan Distended small bowel. Ileus versus obstruction. Rectal fecal impaction. 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 recurrent bleed, transfuse 2 units yesterday cont Protonix drip fu cardiology poor prognosis plan repeat EGD if needed Subjective Subjective limited Objective Last 24 Hour Vital Signs Date Time Temp Pulse Resp B/P (MAP) Pulse Ox O2 Delivery O2 Flow Rate FiO2 10/29/17 11:10 84 22 45 10/29/17 11:00 85 22 119/68 100 Mechanical Ventilator 60 10/29/17 10:00 90 25 125/71 100 Mechanical Ventilator 60 10/29/17 09:45 45 10/29/17 09:37 93 128/72 10/29/17 09:18 87 22 60 10/29/17 09:00 88 23 129/71 100 Mechanical Ventilator 60 10/29/17 08:00 60 10/29/17 08:00 127/69 10/29/17 08:00 90 10/29/17 08:00 97.9 91 25 123/71 100 Mechanical Ventilator 60 10/29/17 07:00 91 26 144/112 100 Mechanical Ventilator 60 10/29/17 06:59 96 22 60 10/29/17 06:00 88 26 126/67 100 Mechanical Ventilator 60 10/29/17 05:29 97 28 60 10/29/17 05:00 96 26 128/68 100 Mechanical Ventilator 60 10/29/17 04:00 98.7 93 22 119/65 100 Mechanical Ventilator 60 10/29/17 04:00 60 2/19/18 03:28 96 23 60 2/19/18 03:21 96 2/19/18 03:00 93 23 125/62 100 Mechanical Ventilator 60 2/19/18 02:00 88 19 113/60 100 Mechanical Ventilator 60 2/19/18 01:05 95 25 60 2/19/18 01:00 97 24 125/65 100 Mechanical Ventilator 60 2/19/18 00:24 93 2/19/18 00:00 98.7 97 27 120/68 100 Mechanical Ventilator 60 2/18/18 23:21 96 25 60 2/18/18 23:00 93 25 124/65 100 Mechanical Ventilator 60 2/18/18 22:00 102 19 127/63 100 Mechanical Ventilator 60 2/18/18 21:40 103 132/65 2/18/18 21:18 92 21 60 2/18/18 21:00 94 20 120/59 100 Mechanical Ventilator 60 2/18/18 20:00 60 2/18/18 20:00 98.7 101 29 124/93 100 Mechanical Ventilator 60 2/18/18 19:40 100 2/18/18 19:38 105 32 60 2/18/18 19:30 98.3 105 36 142/74 Mechanical Ventilator 105 2/18/18 19:30 Mechanical Ventilator 60 2/18/18 19:00 95 25 143/77 99 Mechanical Ventilator 60 2/18/18 18:00 92 26 147/82 100 Mechanical Ventilator 60 2/18/18 17:37 Mechanical Ventilator 15.0 60 2/18/18 17:00 94 25 130/75 100 Mechanical Ventilator 60 2/18/18 16:00 98.0 101 36 144/83 Endotracheal Tube 60 2/18/18 16:00 Mechanical Ventilator 60 2/18/18 16:00 60 2/18/18 16:00 95 2/18/18 15:23 99 31 60 2/18/18 14:15 98 120/80 2/18/18 13:04 98 34 60 2/18/18 13:00 95 22 120/80 100 Mechanical Ventilator 60 Intake and Output 2/18/18 2/19/18 19:00 07:00 Intake Total 380 ml 615 ml Output Total 280 ml 1050 ml Balance 100 ml -435 ml IV Total 380 ml 555 ml Other 60 ml Output Urine Total 0 ml 0 ml Stool Total 200 ml 50 ml Hemodialysis UF 1000 ml Other 80 ml Laboratory Tests Test 10/29/17 03:25 10/29/17 09:40 White Blood Count 37.3 K/UL (4.8-10.8) *H Red Blood Count 2.97 M/UL (4.70-6.10) L Hemoglobin 8.9 G/DL (14.2-18.0) L Hematocrit 25.7 % (42.0-52.0) L Mean Corpuscular Volume 87 FL (80-99) Mean Corpuscular Hemoglobin 29.8 PG (27.0-31.0) Mean Corpuscular Hemoglobin Concent 34.4 G/DL (32.0-36.0) Red Cell Distribution Width 13.8 % (11.6-14.8) Platelet Count 232 K/UL (150-450) Mean Platelet Volume 6.7 FL (6.5-10.1) Neutrophils (%) (Auto) % (45.0-75.0) Lymphocytes (%) (Auto) % (20.0-45.0) Monocytes (%) (Auto) % (1.0-10.0) Eosinophils (%) (Auto) % (0.0-3.0) Basophils (%) (Auto) % (0.0-2.0) Differential Total Cells Counted 100 Neutrophils % (Manual) 89 % (45-75) H Lymphocytes % (Manual) 5 % (20-45) L Monocytes % (Manual) 6 % (1-10) Eosinophils % (Manual) 0 % (0-3) Basophils % (Manual) 0 % (0-2) Band Neutrophils 0 % (0-8) Platelet Estimate Adequate Platelet Morphology Normal Hypochromasia 2+ Sodium Level 142 MMOL/L (136-145) Potassium Level 2.9 MMOL/L (3.5-5.1) L Chloride Level 105 MMOL/L (98-107) Carbon Dioxide Level 26 MMOL/L (21-32) Anion Gap 11 mmol/L (5-15) Blood Urea Nitrogen 63 mg/dL (7-18) H Creatinine 4.6 MG/DL (0.55-1.30) H Estimat Glomerular Filtration Rate 15.9 mL/min (>60) Glucose Level 80 MG/DL (74-106) Calcium Level 7.3 MG/DL (8.5-10.1) L C-Reactive Protein, Quantitative 35.0 mg/dL (0.00-0.90) H Random Vancomycin Level 25.7 ug/mL Arterial Blood pH 7.450 (7.350-7.450) Arterial Blood Partial Pressure CO2 36.4 mmHg (35.0-45.0) Arterial Blood Partial Pressure O2 161.4 mmHg (75.0-100.0) H Arterial Blood HCO3 24.7 mmol/L (22.0-26.0) Arterial Blood Oxygen Saturation 98.1 % (92.0-98.0) H Arterial Blood Base Excess 0.9 Dipak Test Positive Height (Feet): 5 Height (Inches): 6.00 Weight (Pounds): 202 General Appearance: alert Cardiovascular: normal rate Respiratory/Chest: normal breath sounds Abdominal Exam: GT site - leakage Laura Lucas N.P. Oct 29, 2017 12:32
--- NOTE | 2017-10-29 12:34 | GI Progress Note ---
Assessment/Plan Problems: (1) Dysphagia ICD Codes: R13.10 - Dysphagia, unspecified SNOMED: 23595367, 794325243 (2) Dementia ICD Codes: F03.90 - Unspecified dementia without behavioral disturbance SNOMED: 09989545 (3) PEG (percutaneous endoscopic gastrostomy) adjustment/replacement/removal ICD Codes: Z43.1 - Encounter for attention to gastrostomy SNOMED: 601694884, 464104840 (4) CVA, old, hemiparesis ICD Codes: I69.359 - Hemiplegia and hemiparesis following cerebral infarction affecting unspecified side SNOMED: 91044825, 15537507, [id number] Status: unchanged Status Narrative Discussed with Dr. Campos. Assessment/Plan Distended small bowel. Ileus versus obstruction. Rectal fecal impaction. 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 recurrent bleed, transfuse 2 units yesterday cont Protonix drip fu cardiology poor prognosis plan repeat EGD if needed Subjective Subjective limited Objective Last 24 Hour Vital Signs Date Time Temp Pulse Resp B/P (MAP) Pulse Ox O2 Delivery O2 Flow Rate FiO2 10/29/17 11:10 84 22 45 10/29/17 11:00 85 22 119/68 100 Mechanical Ventilator 60 10/29/17 10:00 90 25 125/71 100 Mechanical Ventilator 60 10/29/17 09:45 45 10/29/17 09:37 93 128/72 10/29/17 09:18 87 22 60 10/29/17 09:00 88 23 129/71 100 Mechanical Ventilator 60 10/29/17 08:00 60 10/29/17 08:00 127/69 10/29/17 08:00 90 10/29/17 08:00 97.9 91 25 123/71 100 Mechanical Ventilator 60 10/29/17 07:00 91 26 144/112 100 Mechanical Ventilator 60 10/29/17 06:59 96 22 60 10/29/17 06:00 88 26 126/67 100 Mechanical Ventilator 60 10/29/17 05:29 97 28 60 10/29/17 05:00 96 26 128/68 100 Mechanical Ventilator 60 10/29/17 04:00 98.7 93 22 119/65 100 Mechanical Ventilator 60 10/29/17 04:00 60 2/19/18 03:28 96 23 60 2/19/18 03:21 96 2/19/18 03:00 93 23 125/62 100 Mechanical Ventilator 60 2/19/18 02:00 88 19 113/60 100 Mechanical Ventilator 60 2/19/18 01:05 95 25 60 2/19/18 01:00 97 24 125/65 100 Mechanical Ventilator 60 2/19/18 00:24 93 2/19/18 00:00 98.7 97 27 120/68 100 Mechanical Ventilator 60 2/18/18 23:21 96 25 60 2/18/18 23:00 93 25 124/65 100 Mechanical Ventilator 60 2/18/18 22:00 102 19 127/63 100 Mechanical Ventilator 60 2/18/18 21:40 103 132/65 2/18/18 21:18 92 21 60 2/18/18 21:00 94 20 120/59 100 Mechanical Ventilator 60 2/18/18 20:00 60 2/18/18 20:00 98.7 101 29 124/93 100 Mechanical Ventilator 60 2/18/18 19:40 100 2/18/18 19:38 105 32 60 2/18/18 19:30 98.3 105 36 142/74 Mechanical Ventilator 105 2/18/18 19:30 Mechanical Ventilator 60 2/18/18 19:00 95 25 143/77 99 Mechanical Ventilator 60 2/18/18 18:00 92 26 147/82 100 Mechanical Ventilator 60 2/18/18 17:37 Mechanical Ventilator 15.0 60 2/18/18 17:00 94 25 130/75 100 Mechanical Ventilator 60 2/18/18 16:00 98.0 101 36 144/83 Endotracheal Tube 60 2/18/18 16:00 Mechanical Ventilator 60 2/18/18 16:00 60 2/18/18 16:00 95 2/18/18 15:23 99 31 60 2/18/18 14:15 98 120/80 2/18/18 13:04 98 34 60 2/18/18 13:00 95 22 120/80 100 Mechanical Ventilator 60 Intake and Output 2/18/18 2/19/18 19:00 07:00 Intake Total 380 ml 615 ml Output Total 280 ml 1050 ml Balance 100 ml -435 ml IV Total 380 ml 555 ml Other 60 ml Output Urine Total 0 ml 0 ml Stool Total 200 ml 50 ml Hemodialysis UF 1000 ml Other 80 ml Laboratory Tests Test 10/29/17 03:25 10/29/17 09:40 White Blood Count 37.3 K/UL (4.8-10.8) *H Red Blood Count 2.97 M/UL (4.70-6.10) L Hemoglobin 8.9 G/DL (14.2-18.0) L Hematocrit 25.7 % (42.0-52.0) L Mean Corpuscular Volume 87 FL (80-99) Mean Corpuscular Hemoglobin 29.8 PG (27.0-31.0) Mean Corpuscular Hemoglobin Concent 34.4 G/DL (32.0-36.0) Red Cell Distribution Width 13.8 % (11.6-14.8) Platelet Count 232 K/UL (150-450) Mean Platelet Volume 6.7 FL (6.5-10.1) Neutrophils (%) (Auto) % (45.0-75.0) Lymphocytes (%) (Auto) % (20.0-45.0) Monocytes (%) (Auto) % (1.0-10.0) Eosinophils (%) (Auto) % (0.0-3.0) Basophils (%) (Auto) % (0.0-2.0) Differential Total Cells Counted 100 Neutrophils % (Manual) 89 % (45-75) H Lymphocytes % (Manual) 5 % (20-45) L Monocytes % (Manual) 6 % (1-10) Eosinophils % (Manual) 0 % (0-3) Basophils % (Manual) 0 % (0-2) Band Neutrophils 0 % (0-8) Platelet Estimate Adequate Platelet Morphology Normal Hypochromasia 2+ Sodium Level 142 MMOL/L (136-145) Potassium Level 2.9 MMOL/L (3.5-5.1) L Chloride Level 105 MMOL/L (98-107) Carbon Dioxide Level 26 MMOL/L (21-32) Anion Gap 11 mmol/L (5-15) Blood Urea Nitrogen 63 mg/dL (7-18) H Creatinine 4.6 MG/DL (0.55-1.30) H Estimat Glomerular Filtration Rate 15.9 mL/min (>60) Glucose Level 80 MG/DL (74-106) Calcium Level 7.3 MG/DL (8.5-10.1) L C-Reactive Protein, Quantitative 35.0 mg/dL (0.00-0.90) H Random Vancomycin Level 25.7 ug/mL Arterial Blood pH 7.450 (7.350-7.450) Arterial Blood Partial Pressure CO2 36.4 mmHg (35.0-45.0) Arterial Blood Partial Pressure O2 161.4 mmHg (75.0-100.0) H Arterial Blood HCO3 24.7 mmol/L (22.0-26.0) Arterial Blood Oxygen Saturation 98.1 % (92.0-98.0) H Arterial Blood Base Excess 0.9 Dipak Test Positive Height (Feet): 5 Height (Inches): 6.00 Weight (Pounds): 202 Laura Lucas N.P. Oct 29, 2017 12:34
--- NOTE | 2017-10-29 12:57 | Infectious Diseases Prog Note ---
Assessment/Plan Assessment/Plan Assessment/Plan C Diff +ve Fever, SP Leukocytosis, improving -CXR: Improved right perihilar and basal atelectasis with some residual present. Pneumonia is not excluded -abd xray : Distended small bowel. Ileus versus obstruction. Rectal fecal impaction. -10/23 Bcx NTD, UCx NTD, sp Cx c. albicans, usual resp johnnie E.coli UTI w/ bacteremia ; s/p Rx -REnal US: Limited exam. No definite hydronephrosis. Empty bladder, containing a Cervantes catheter. Suspicion for Flu despite rapid test (+URI symptoms, sick contacts); s/p Rx ? Pneum -CXR 10/26: There is right basilar and right perihilar atelectasis and possibly minimal consolidation. Left lung and bilateral pleural spaces remain clear. -Influenza neg Acute hypoxic resp failure- intubated (10/20) 12/18 KUB : Distended small bowel. Ileus versus obstruction. SP Trach 10/23 SP cardiac arrest 10/26 SP hemorrhagic shock (drop Hgb 10.8 to 5)- 10/12 GIB- transaminitis due to shock JULIA Lactic acidosis, resolved UGI bleed SP EGD 10/18 and 10/26 Path: H Pylori Neg CVA with hemiplegia HTN cataract dysphagia Hx of fall CAD/CA CVA/TIA dementia seizure disorder Plan: -Continue empiric IV Vanco # 9 and cont Meropenem d# 4 , Flagyl and oral Vanco d# 3 -monitor closely for seizure activity as meropenem can decrease valproic acid levels (patient previously on meropenem; tolerated well) - 10/26 SP Zosyn #6 - /11 SP Ceftriaxone 2 g qd d# 11 - 2/7 SP empiric Tamiflu #6/5 -2/5 SP IV Vancomcyin #5, Meropenm #3 -2/3 SP Cefepime #3 -Monitor CBC/BMP, temperatures; Trend WBC -aspiration precautions - vent Support - Subjective Allergies: Coded Allergies: NO KNOWN ALLERGIES (Unverified Allergy, Unknown, 09/03/15) Subjective NON VERBAL sp TRACH ON vent Objective Vital Signs Last 24 Hour Vital Signs Date Time Temp Pulse Resp B/P (MAP) Pulse Ox O2 Delivery O2 Flow Rate FiO2 10/29/17 11:10 84 22 45 2/19/18 11:00 85 22 119/68 100 Mechanical Ventilator 60 2/19/18 10:00 90 25 125/71 100 Mechanical Ventilator 60 2/19/18 09:45 45 2/19/18 09:37 93 128/72 2/19/18 09:18 87 22 60 2/19/18 09:00 88 23 129/71 100 Mechanical Ventilator 60 2/19/18 08:00 60 2/19/18 08:00 127/69 2/19/18 08:00 90 2/19/18 08:00 97.9 91 25 123/71 100 Mechanical Ventilator 60 2/19/18 07:00 91 26 144/112 100 Mechanical Ventilator 60 2/19/18 06:59 96 22 60 2/19/18 06:00 88 26 126/67 100 Mechanical Ventilator 60 2/19/18 05:29 97 28 60 2/19/18 05:00 96 26 128/68 100 Mechanical Ventilator 60 2/19/18 04:00 98.7 93 22 119/65 100 Mechanical Ventilator 60 2/19/18 04:00 60 2/19/18 03:28 96 23 60 2/19/18 03:21 96 2/19/18 03:00 93 23 125/62 100 Mechanical Ventilator 60 2/19/18 02:00 88 19 113/60 100 Mechanical Ventilator 60 2/19/18 01:05 95 25 60 2/19/18 01:00 97 24 125/65 100 Mechanical Ventilator 60 2/19/18 00:24 93 2/19/18 00:00 98.7 97 27 120/68 100 Mechanical Ventilator 60 2/18/18 23:21 96 25 60 2/18/18 23:00 93 25 124/65 100 Mechanical Ventilator 60 2/18/18 22:00 102 19 127/63 100 Mechanical Ventilator 60 2/18/18 21:40 103 132/65 2/18/18 21:18 92 21 60 2/18/18 21:00 94 20 120/59 100 Mechanical Ventilator 60 2/18/18 20:00 60 2/18/18 20:00 98.7 101 29 124/93 100 Mechanical Ventilator 60 2/18/18 19:40 100 2/18/18 19:38 105 32 60 2/18/18 19:30 98.3 105 36 142/74 Mechanical Ventilator 105 2/18/18 19:30 Mechanical Ventilator 60 2/18/18 19:00 95 25 143/77 99 Mechanical Ventilator 60 10/28/17 18:00 92 26 147/82 100 Mechanical Ventilator 60 18 17:37 Mechanical Ventilator 15.0 60 10/28/17 17:00 94 25 130/75 100 Mechanical Ventilator 60 10/28/17 16:00 98.0 101 36 144/83 Endotracheal Tube 60 10/28/17 16:00 Mechanical Ventilator 60 10/28/17 16:00 60 18 16:00 95 10/28/17 15:23 99 31 60 10/28/17 14:15 98 120/80 10/28/17 13:04 98 34 60 10/28/17 13:00 95 22 120/80 100 Mechanical Ventilator 60 Height (Feet): 5 Height (Inches): 6.00 Weight (Pounds): 202 HEENT: anicteric Respiratory/Chest: normal breath sounds Cardiovascular: no gallop/murmur Abdomen: no organomegaly Microbiology Date/Time Source Procedure Growth Status 10/26/17 21:30 Sputum Gram Stain - Final Complete 10/26/17 21:30 Sputum Culture - Final Jessica Albicans Complete 10/26/17 21:30 Stool Clostridium difficile Toxin Assay - Final Complete 10/26/17 22:00 Urine,Clean Catch Urine Culture - Final NO GROWTH AFTER 48 HOURS Complete Laboratory Tests Test 10/29/17 03:25 10/29/17 09:40 White Blood Count 37.3 K/UL (4.8-10.8) *H Red Blood Count 2.97 M/UL (4.70-6.10) L Hemoglobin 8.9 G/DL (14.2-18.0) L Hematocrit 25.7 % (42.0-52.0) L Mean Corpuscular Volume 87 FL (80-99) Mean Corpuscular Hemoglobin 29.8 PG (27.0-31.0) Mean Corpuscular Hemoglobin Concent 34.4 G/DL (32.0-36.0) Red Cell Distribution Width 13.8 % (11.6-14.8) Platelet Count 232 K/UL (150-450) Mean Platelet Volume 6.7 FL (6.5-10.1) Neutrophils (%) (Auto) % (45.0-75.0) Lymphocytes (%) (Auto) % (20.0-45.0) Monocytes (%) (Auto) % (1.0-10.0) Eosinophils (%) (Auto) % (0.0-3.0) Basophils (%) (Auto) % (0.0-2.0) Differential Total Cells Counted 100 Neutrophils % (Manual) 89 % (45-75) H Lymphocytes % (Manual) 5 % (20-45) L Monocytes % (Manual) 6 % (1-10) Eosinophils % (Manual) 0 % (0-3) Basophils % (Manual) 0 % (0-2) Band Neutrophils 0 % (0-8) Platelet Estimate Adequate Platelet Morphology Normal Hypochromasia 2+ Sodium Level 142 MMOL/L (136-145) Potassium Level 2.9 MMOL/L (3.5-5.1) L Chloride Level 105 MMOL/L (98-107) Carbon Dioxide Level 26 MMOL/L (21-32) Anion Gap 11 mmol/L (5-15) Blood Urea Nitrogen 63 mg/dL (7-18) H Creatinine 4.6 MG/DL (0.55-1.30) H Estimat Glomerular Filtration Rate 15.9 mL/min (>60) Glucose Level 80 MG/DL (74-106) Calcium Level 7.3 MG/DL (8.5-10.1) L C-Reactive Protein, Quantitative 35.0 mg/dL (0.00-0.90) H Random Vancomycin Level 25.7 ug/mL Arterial Blood pH 7.450 (7.350-7.450) Arterial Blood Partial Pressure CO2 36.4 mmHg (35.0-45.0) Arterial Blood Partial Pressure O2 161.4 mmHg (75.0-100.0) H Arterial Blood HCO3 24.7 mmol/L (22.0-26.0) Arterial Blood Oxygen Saturation 98.1 % (92.0-98.0) H Arterial Blood Base Excess 0.9 Dipak Test Positive Current Medications Medications (Trade) Dose Ordered Sig/Olvin Route PRN Reason Start Time Stop Time Status Last Admin Dose Admin Acetaminophen (Tylenol) 650 mg Q4H PRN RECTAL Mild Pain (Pain Scale 1-3) 10/26/17 05:49 11/20/17 05:48 Albuterol/ Ipratropium (Albuterol/ Ipratropium) 3 ml Q4H PRN N Shortness of Breath 10/29/17 11:45 11/03/17 23:59 Chlorhexidine Gluconate (Pamela-Hex 2%) 1 applic DAILY@2000 TOPIC 10/26/17 20:00 11/23/17 19:59 10/28/17 19:36 Lorazepam (Ativan 2mg/ml 1ml) 2 mg Q1H PRN IV PERSISTENT AGITATION 10/28/17 11:00 10/30/17 10:59 Meropenem 500 mg/ Sodium Chloride 55 ml @ 110 mls/hr Q12HR@1100,2300 IVPB 10/27/17 11:00 11/01/17 10:59 10/29/17 11:02 Metoprolol Tartrate (Lopressor) 12.5 mg Q12HR GT 10/27/17 09:00 11/26/17 08:59 10/29/17 09:37 Metronidazole 100 ml @ 100 mls/hr Q8HR IV 10/27/17 10:00 11/03/17 09:59 10/29/17 05:28 Morphine Sulfate (Morphine Sulfate) 2 mg Q2H PRN IVP For Pain 10/27/17 09:00 11/03/17 08:59 Nitroglycerin (Ntg) 0.4 mg Q5MIN X 3 DOSES PRN SL Prn Chest Pain 10/26/17 05:45 11/14/17 17:09 Norepinephrine Bitartrate 8 mg/ Dextrose 250 ml @ 0 mls/hr Q24H IV 10/26/17 07:30 11/25/17 07:29 10/27/17 12:47 Ondansetron HCl (Zofran) 4 mg Q6H PRN IVP Nausea & Vomiting 10/26/17 05:51 11/10/17 05:50 Pantoprazole 80 mg/Sodium Chloride 250 ml @ 25 mls/hr Q10H IV 10/26/17 10:00 11/25/17 09:59 10/29/17 08:19 Phenylephrine HCl 50 mg/Dextrose 250 ml @ 0 mls/hr Q24H IV 10/26/17 14:15 11/25/17 14:14 10/26/17 21:33 Potassium Chloride 30 meq/ Sodium Chloride 565 ml @ 188.333 mls/hr ONCE ONCE IVPB 10/29/17 13:00 10/29/17 15:59 Vancomycin HCl (Vanco rx to dose) 1 ea DAILY PRN MISC Per rx protocol 10/26/17 09:00 11/23/17 17:09 Vancomycin HCl (Vancomycin) 125 mg FOUR TIMES A DAY ORAL 10/27/17 13:00 11/03/17 12:59 10/29/17 09:36 FAUSTINO AGARWAL M.D. Oct 29, 2017 12:56
[2017-10-29] MEDS ORDERED: Potassium Chloride 30 MEQ in Sodium Chloride 500ML 550 ML IVPB ONE (13:00)
[2017-10-29] MEDS: Phenylephrine 50 MG in D5W 245 ML IV SCH (13:30)
--- NOTE | 2017-10-29 14:37 | Diagnostic Imaging Report ---
Indication: Abdominal distention Technique: Supine view of the abdomen Comparison: 10/24/2017 Findings: There are surgical clips in the left upper quadrant. There is a gastrostomy. Bowel gas pattern is unremarkable. There are degenerative changes of the lumbar spine Impression: No acute process
--- NOTE | 2017-10-29 20:12 | Cardiology Progress Note ---
Assessment/Plan Assessment/Plan 1. Cardiopulmonary arrest on three separate occasions. 2. Massive gastrointestinal bleed. 3. Encephalopathy. 4. Abnormal liver function tests, likely shock liver. 5. Acute renal failure. 6. Anemia. 7. NSTEMI type2 post related to cardiopulmonary resuscitation and renal insufficiency. 8. Chronic respiratory failure. 9. History of cerebrovascular accident. s/p 2 unti of prbc yest trop down trending echo showed lv function to be adequate the rv was little enlarged will have venous duplex lft down trending wbc is sig elevated empiric abx pending dialysis dark blood in stool and around the g tube seems little more responsive than yest tries to strike out with right arm tle reviewed Subjective ROS Limited/Unobtainable: Yes Objective Last 24 Hour Vital Signs Date Time Temp Pulse Resp B/P (MAP) Pulse Ox O2 Delivery O2 Flow Rate FiO2 10/29/17 19:00 96 23 135/83 100 Mechanical Ventilator 60 18 18:45 93 23 45 10/29/17 18:00 87 23 140/84 100 Mechanical Ventilator 60 18 17:08 95 27 45 18 17:00 93 25 131/85 100 Mechanical Ventilator 60 18 16:00 97 18 16:00 45 18 16:00 97.8 87 21 130/96 100 Mechanical Ventilator 60 10/29/17 15:05 92 27 45 18 15:00 90 23 127/88 100 Mechanical Ventilator 60 18 14:00 90 25 128/76 100 Mechanical Ventilator 60 18 13:30 97 124/74 18 13:15 93 30 45 18 13:00 88 25 124/74 100 Mechanical Ventilator 60 18 12:00 84 18 12:00 98.6 82 24 118/73 100 Mechanical Ventilator 60 18 12:00 45 18 11:10 84 22 45 18 11:00 85 22 119/68 100 Mechanical Ventilator 60 18 10:00 45 18 10:00 90 25 125/71 100 Mechanical Ventilator 60 18 09:45 45 18 09:37 93 128/72 218 09:18 87 22 60 2/19/18 09:00 88 23 129/71 100 Mechanical Ventilator 60 10/29/18 08:00 60 2//18 08:00 127/69 2//18 08:00 90 10/29/18 08:00 97.9 91 25 123/71 100 Mechanical Ventilator 60 //18 07:00 91 26 144/112 100 Mechanical Ventilator 60 10/29/18 06:59 96 22 60 //18 06:00 88 26 126/67 100 Mechanical Ventilator 60 10/29/18 05:29 97 28 60 //18 05:00 96 26 128/68 100 Mechanical Ventilator 60 10/29/18 04:00 98.7 93 22 119/65 100 Mechanical Ventilator 60 18 04:00 60 10/29/17 03:28 96 23 60 10/29/18 03:21 96 10/29/18 03:00 93 23 125/62 100 Mechanical Ventilator 60 18 02:00 88 19 113/60 100 Mechanical Ventilator 60 18 01:05 95 25 60 10/29/18 01:00 97 24 125/65 100 Mechanical Ventilator 60 18 00:24 93 10/29/18 00:00 98.7 97 27 120/68 100 Mechanical Ventilator 60 10/28/18 23:21 96 25 60 //18 23:00 93 25 124/65 100 Mechanical Ventilator 60 18 22:00 102 19 127/63 100 Mechanical Ventilator 60 10/28/17 21:40 103 132/65 2/18 21:18 92 21 60 10/28/18 21:00 94 20 120/59 100 Mechanical Ventilator 60 General Appearance: on vent, patient on isolation, other - awake3 Neck: supple Cardiovascular: normal rate, regular rhythm Respiratory/Chest: rhonchi - bilaterally Abdomen: normal bowel sounds, non tender, soft Extremities: moderate edema Intake and Output 10/28/17 10/29/17 19:00 07:00 Intake Total 380 ml 640 ml Output Total 280 ml 1050 ml Balance 100 ml -410 ml IV Total 380 ml 580 ml Other 60 ml Output Urine Total 0 ml 0 ml Stool Total 200 ml 50 ml Hemodialysis UF 1000 ml Other 80 ml Laboratory Tests Test 10/29/17 03:25 10/29/17 09:40 White Blood Count 37.3 K/UL (4.8-10.8) *H Red Blood Count 2.97 M/UL (4.70-6.10) L Hemoglobin 8.9 G/DL (14.2-18.0) L Hematocrit 25.7 % (42.0-52.0) L Mean Corpuscular Volume 87 FL (80-99) Mean Corpuscular Hemoglobin 29.8 PG (27.0-31.0) Mean Corpuscular Hemoglobin Concent 34.4 G/DL (32.0-36.0) Red Cell Distribution Width 13.8 % (11.6-14.8) Platelet Count 232 K/UL (150-450) Mean Platelet Volume 6.7 FL (6.5-10.1) Neutrophils (%) (Auto) % (45.0-75.0) Lymphocytes (%) (Auto) % (20.0-45.0) Monocytes (%) (Auto) % (1.0-10.0) Eosinophils (%) (Auto) % (0.0-3.0) Basophils (%) (Auto) % (0.0-2.0) Differential Total Cells Counted 100 Neutrophils % (Manual) 89 % (45-75) H Lymphocytes % (Manual) 5 % (20-45) L Monocytes % (Manual) 6 % (1-10) Eosinophils % (Manual) 0 % (0-3) Basophils % (Manual) 0 % (0-2) Band Neutrophils 0 % (0-8) Platelet Estimate Adequate Platelet Morphology Normal Hypochromasia 2+ Sodium Level 142 MMOL/L (136-145) Potassium Level 2.9 MMOL/L (3.5-5.1) L Chloride Level 105 MMOL/L (98-107) Carbon Dioxide Level 26 MMOL/L (21-32) Anion Gap 11 mmol/L (5-15) Blood Urea Nitrogen 63 mg/dL (7-18) H Creatinine 4.6 MG/DL (0.55-1.30) H Estimat Glomerular Filtration Rate 15.9 mL/min (>60) Glucose Level 80 MG/DL (74-106) Calcium Level 7.3 MG/DL (8.5-10.1) L C-Reactive Protein, Quantitative 35.0 mg/dL (0.00-0.90) H Random Vancomycin Level 25.7 ug/mL Arterial Blood pH 7.450 (7.350-7.450) Arterial Blood Partial Pressure CO2 36.4 mmHg (35.0-45.0) Arterial Blood Partial Pressure O2 161.4 mmHg (75.0-100.0) H Arterial Blood HCO3 24.7 mmol/L (22.0-26.0) Arterial Blood Oxygen Saturation 98.1 % (92.0-98.0) H Arterial Blood Base Excess 0.9 Dipak Test Positive Microbiology Date/Time Source Procedure Growth Status 10/26/17 21:30 Sputum Gram Stain - Final Complete 10/26/17 21:30 Sputum Culture - Final Jessica Albicans Complete 10/26/17 21:30 Stool Clostridium difficile Toxin Assay - Final Complete 10/26/17 22:00 Urine,Clean Catch Urine Culture - Final NO GROWTH AFTER 48 HOURS Complete CHRISTEN LOVE Oct 29, 2017 20:12
[2017-10-29] MEDS: Dyna-Hex 2% Top Sol 2oz TOPIC SCH (20:34)
[2017-10-30] VITALS (21 sets, daily range): BP systolic 130–158; BP diastolic 72–99
[2017-10-30] MEDS ORDERED: Pantoprazole 80 MG in NS 250 ML IV SCH (04:00)
[2017-10-30] MEDS: Flagyl 500mg/NS 100ml Pre-Mix IV SCH ×2 (05:31→18:41)
[2017-10-30 06:11] LABS: HEMATOCRIT 28.2 % (42.0-52.0); HEMOGLOBIN 9.8 G/DL (14.2-18.0); MEAN CORPUSCULAR VOLUME 87 FL (80-99); PLATELET COUNT 292 K/UL (150-450); RED BLOOD COUNT 3.23 M/UL (4.70-6.10); RED CELL DISTRIBUTION WIDTH 13.8 % (11.6-14.8)
[2017-10-30 06:23] LABS: ALANINE AMINOTRANSFERASE 728 U/L (12-78); ALBUMIN 1.5 G/DL (3.4-5.0); ALBUMIN/GLOBULIN RATIO 0.5 (1.0-2.7); ALKALINE PHOSPHATASE 126 U/L (46-116); ANION GAP 12 mmol/L (5-15); ASPARTATE AMINO TRANSFERASE 198 U/L (15-37); BILIRUBIN,TOTAL 0.6 MG/DL (0.2-1.0); BLOOD UREA NITROGEN 78 mg/dL (7-18); CALCIUM 7.1 MG/DL (8.5-10.1); CARBON DIOXIDE 25 MMOL/L (21-32); CHLORIDE 106 MMOL/L (98-107); CREATININE 5.9 MG/DL (0.55-1.30); POTASSIUM 3.3 MMOL/L (3.5-5.1); SODIUM 143 MMOL/L (136-145)
[2017-10-30 06:24] LABS: PHOSPHORUS 5.8 MG/DL (2.5-4.9)
[2017-10-30 06:30] LABS: WHITE BLOOD COUNT 33.7 K/UL (4.8-10.8)
[2017-10-30] MEDS: Metoprolol Tartrate 12.5mg TAB GT SCH (09:00)
--- NOTE | 2017-10-30 09:35 | Diagnostic Imaging Report ---
Indication: Dyspnea Technique: One view of the chest Comparison: 10/29/2017 Findings: Central satisfactory position of tracheostomy, right subclavian central venous catheter. There is slightly increased haziness at the left lung base and left hemidiaphragm is now obscured. Patchy right perihilar opacities and right basilar atelectasis are again demonstrated. Heart size is normal. Impression: Slightly increased hazy opacity left lung base and obscuration of left hemidiaphragm, may reflect increased infiltrates and/or pleural fluid
[2017-10-30] MEDS: Vancomycin oral 125mg/2.5ml ORAL SCH ×4 (10:48→22:17)
--- NOTE | 2017-10-30 10:49 | Infectious Diseases Prog Note ---
Assessment/Plan Assessment/Plan Assessment/Plan C Diff +ve Fever, SP Leukocytosis, improving -CXR: Improved right perihilar and basal atelectasis with some residual present. Pneumonia is not excluded -abd xray : Distended small bowel. Ileus versus obstruction. Rectal fecal impaction. -10/23 Bcx NTD, UCx NTD, sp Cx c. albicans, usual resp johnnie E.coli UTI w/ bacteremia ; s/p Rx -REnal US: Limited exam. No definite hydronephrosis. Empty bladder, containing a Cervantes catheter. Suspicion for Flu despite rapid test (+URI symptoms, sick contacts); s/p Rx ? Pneum -CXR 10/26: There is right basilar and right perihilar atelectasis and possibly minimal consolidation. Left lung and bilateral pleural spaces remain clear. -Influenza neg Acute hypoxic resp failure- intubated (10/20) 12/18 KUB : Distended small bowel. Ileus versus obstruction. SP Trach 10/23 SP cardiac arrest 10/26 SP hemorrhagic shock (drop Hgb 10.8 to 5)- 10/12 GIB- transaminitis due to shock JULIA Lactic acidosis, resolved UGI bleed SP EGD 10/18 and 10/26 Path: H Pylori Neg CVA with hemiplegia HTN cataract dysphagia Hx of fall CAD/OR CVA/TIA dementia seizure disorder Plan: -Continue Meropenem d#5 , Flagyl and oral Vanco d# 4 - 10/29 SP IV Vanco # 10 - 10/26 SP Zosyn #6 - 11 SP Ceftriaxone 2 g qd d# 11 - 10/17 SP empiric Tamiflu #6/5 -/5 SP IV Vancomcyin #5, Meropenm #3 -2/3 SP Cefepime #3 -Monitor CBC/BMP, temperatures; - monitor Bl Cx -aspiration precautions - vent Support - Subjective Constitutional: Denies: no symptoms, fever, chills, fatigue, anorexia, drenching sweats, other Allergies: Coded Allergies: NO KNOWN ALLERGIES (Unverified Allergy, Unknown, 09/03/15) Subjective NON VERBAL sp TRACH ON vent Objective Vital Signs Last 24 Hour Vital Signs Date Time Temp Pulse Resp B/P (MAP) Pulse Ox O2 Delivery O2 Flow Rate FiO2 10/30/17 10:00 84 21 136/96 100 Mechanical Ventilator 45 2/20/18 09:04 91 21 45 2/20/18 09:00 92 20 149/99 100 Mechanical Ventilator 45 2/20/18 08:00 45 2/20/18 08:00 85 2/20/18 08:00 98.0 91 22 144/87 100 Mechanical Ventilator 45 2/20/18 07:30 139/84 2/20/18 07:13 95 22 45 2/20/18 07:00 92 24 146/94 100 Mechanical Ventilator 45 2/20/18 06:00 90 20 137/85 100 Mechanical Ventilator 45 2/20/18 05:25 101 26 45 2/20/18 05:00 94 22 145/87 100 Mechanical Ventilator 45 2/20/18 04:00 45 2/20/18 04:00 104 2/20/18 04:00 97.9 101 25 158/95 100 Mechanical Ventilator 45 2/20/18 03:00 91 19 130/78 100 Mechanical Ventilator 45 2/20/18 02:32 91 21 45 2/20/18 02:00 92 22 134/81 100 Mechanical Ventilator 45 2/20/18 01:02 88 19 45 2/20/18 01:00 90 21 137/79 100 Mechanical Ventilator 45 2/20/18 00:00 93 2/20/18 00:00 98.0 99 21 132/85 100 Mechanical Ventilator 45 2/20/18 00:00 45 2/19/18 23:11 99 28 45 2/19/18 23:00 90 21 140/79 100 Mechanical Ventilator 45 2/19/18 22:00 97 23 135/91 100 Mechanical Ventilator 45 2/19/18 21:08 95 27 45 2/19/18 21:00 96 22 134/85 100 Mechanical Ventilator 45 2/19/18 20:35 91 136/89 2/19/18 20:00 45 2/19/18 20:00 98.0 100 23 141/82 100 Mechanical Ventilator 45 2/19/18 20:00 97 2/19/18 19:00 96 23 135/83 100 Mechanical Ventilator 60 2/19/18 18:45 93 23 45 2/19/18 18:00 87 23 140/84 100 Mechanical Ventilator 60 2/19/18 17:08 95 27 45 2/19/18 17:00 93 25 131/85 100 Mechanical Ventilator 60 2/19/18 16:00 97 2/19/18 16:00 45 10/29/17 16:00 97.8 87 21 130/96 100 Mechanical Ventilator 60 10/29/17 15:05 92 27 45 10/29/17 15:00 90 23 127/88 100 Mechanical Ventilator 60 10/29/17 14:00 90 25 128/76 100 Mechanical Ventilator 60 10/29/17 13:30 97 124/74 10/29/17 13:15 93 30 45 10/29/17 13:00 88 25 124/74 100 Mechanical Ventilator 60 10/29/17 12:00 84 10/29/17 12:00 98.6 82 24 118/73 100 Mechanical Ventilator 60 10/29/17 12:00 45 10/29/17 11:10 84 22 45 10/29/17 11:00 85 22 119/68 100 Mechanical Ventilator 60 Height (Feet): 5 Height (Inches): 6.00 Weight (Pounds): 205 HEENT: anicteric Respiratory/Chest: normal breath sounds Cardiovascular: regularly irregular Abdomen: non distended Laboratory Tests Test 10/30/17 05:00 10/30/17 09:02 White Blood Count 33.7 K/UL (4.8-10.8) *H Red Blood Count 3.23 M/UL (4.70-6.10) L Hemoglobin 9.8 G/DL (14.2-18.0) L Hematocrit 28.2 % (42.0-52.0) L Mean Corpuscular Volume 87 FL (80-99) Mean Corpuscular Hemoglobin 30.3 PG (27.0-31.0) Mean Corpuscular Hemoglobin Concent 34.7 G/DL (32.0-36.0) Red Cell Distribution Width 13.8 % (11.6-14.8) Platelet Count 292 K/UL (150-450) Mean Platelet Volume 6.4 FL (6.5-10.1) L Neutrophils (%) (Auto) % (45.0-75.0) Lymphocytes (%) (Auto) % (20.0-45.0) Monocytes (%) (Auto) % (1.0-10.0) Eosinophils (%) (Auto) % (0.0-3.0) Basophils (%) (Auto) % (0.0-2.0) Differential Total Cells Counted 100 Neutrophils % (Manual) 89 % (45-75) H Lymphocytes % (Manual) 2 % (20-45) L Monocytes % (Manual) 7 % (1-10) Eosinophils % (Manual) 0 % (0-3) Basophils % (Manual) 0 % (0-2) Band Neutrophils 2 % (0-8) Platelet Estimate Adequate Platelet Morphology Normal Red Blood Cell Morphology Normal Poikilocytosis 1+ Sodium Level 143 MMOL/L (136-145) Potassium Level 3.3 MMOL/L (3.5-5.1) L Chloride Level 106 MMOL/L (98-107) Carbon Dioxide Level 25 MMOL/L (21-32) Anion Gap 12 mmol/L (5-15) Blood Urea Nitrogen 78 mg/dL (7-18) H Creatinine 5.9 MG/DL (0.55-1.30) H Estimat Glomerular Filtration Rate 11.9 mL/min (>60) Glucose Level 66 MG/DL (74-106) L Lactic Acid Level 1.10 mmol/L (0.66-2.22) Uric Acid 8.9 MG/DL (2.6-7.2) H Calcium Level 7.1 MG/DL (8.5-10.1) L Phosphorus Level 5.8 MG/DL (2.5-4.9) H Magnesium Level 2.0 MG/DL (1.8-2.4) Total Bilirubin 0.6 MG/DL (0.2-1.0) Aspartate Amino Transf (AST/SGOT) 198 U/L (15-37) H Alanine Aminotransferase (ALT/SGPT) 728 U/L (12-78) H Alkaline Phosphatase 126 U/L (46-116) H Pro-B-Type Natriuretic Peptide 7851 pg/mL (0-125) H Total Protein 4.5 G/DL (6.4-8.2) L Albumin 1.5 G/DL (3.4-5.0) L Globulin 3.0 g/dL Albumin/Globulin Ratio 0.5 (1.0-2.7) L Arterial Blood pH 7.411 (7.350-7.450) Arterial Blood Partial Pressure CO2 32.0 mmHg (35.0-45.0) L Arterial Blood Partial Pressure O2 95.7 mmHg (75.0-100.0) Arterial Blood HCO3 19.9 mmol/L (22.0-26.0) L Arterial Blood Oxygen Saturation 96.6 % (92.0-98.0) Arterial Blood Base Excess -4.0 Dipak Test Positive Current Medications Medications (Trade) Dose Ordered Sig/Olvin Route PRN Reason Start Time Stop Time Status Last Admin Dose Admin Acetaminophen (Tylenol) 650 mg Q4H PRN RECTAL Mild Pain (Pain Scale 1-3) 10/26/17 05:49 11/20/17 05:48 Albuterol/ Ipratropium (Albuterol/ Ipratropium) 3 ml Q4H PRN HHN Shortness of Breath 10/29/17 11:45 11/03/17 23:59 Chlorhexidine Gluconate (Pamela-Hex 2%) 1 applic DAILY@2000 TOPIC 10/26/17 20:00 11/23/17 19:59 10/29/17 20:34 Lorazepam (Ativan 2mg/ml 1ml) 2 mg Q1H PRN IV PERSISTENT AGITATION 10/28/17 11:00 10/30/17 10:59 Meropenem 500 mg/ Sodium Chloride 55 ml @ 110 mls/hr Q12HR@1100,2300 IVPB 10/27/17 11:00 11/01/17 10:59 10/29/17 23:00 Metoprolol Tartrate (Lopressor) 12.5 mg Q12HR GT 10/27/17 09:00 11/26/17 08:59 10/29/17 20:35 Metronidazole 100 ml @ 100 mls/hr Q8HR IV 10/27/17 10:00 11/03/17 09:59 10/30/17 05:31 Morphine Sulfate (Morphine Sulfate) 2 mg Q2H PRN IVP For Pain 10/27/17 09:00 11/03/17 08:59 Nitroglycerin (Ntg) 0.4 mg Q5MIN X 3 DOSES PRN SL Prn Chest Pain 10/26/17 05:45 11/14/17 17:09 Norepinephrine Bitartrate 8 mg/ Dextrose 250 ml @ 0 mls/hr Q24H IV 10/26/17 07:30 11/25/17 07:29 10/27/17 12:47 Ondansetron HCl (Zofran) 4 mg Q6H PRN IVP Nausea & Vomiting 10/26/17 05:51 11/10/17 05:50 Pantoprazole 80 mg/Sodium Chloride 250 ml @ 25 mls/hr Q10H IV 10/30/17 04:00 11/29/17 03:59 10/30/17 04:03 Phenylephrine HCl 50 mg/Dextrose 250 ml @ 0 mls/hr Q24H IV 10/26/17 14:15 11/25/17 14:14 10/26/17 21:33 Vancomycin HCl (Vanco rx to dose) 1 ea DAILY PRN MISC Per rx protocol 10/26/17 09:00 11/23/17 17:09 Vancomycin HCl (Vancomycin) 125 mg FOUR TIMES A DAY ORAL 10/27/17 13:00 11/03/17 12:59 10/29/17 20:35 FAUSTINO AGARWAL M.D. Oct 30, 2017 10:49
--- NOTE | 2017-10-30 10:55 | Nephrology Progress Note ---
Assessment/Plan Problem List: (1) Acute renal failure (ARF) (2) Respiratory failure (3) Shock liver Assessment JULIA , due to Shock , Hemorrhagic / Septic / C dif colitis Off Pressors- Shock liver resolving High Troponin: PR Bradycardic - Vfib cardiac arrest 10/26 likely 2ry to hemorrhagic shock (drop Hgb 10.8 to 5) - GIB- Fever, ongoing Leukocytosis, worsening after code E.coli UTI w/ bacteremia Acute hypoxic resp failure- s/p Trach . Plan Plan: BP stablized DC Protonix drip start GT feeding HD trial after cath insertion done 10/28 repeat dialysis 10/30 on C dif treatment protocol monitor urine out put and Renal parameters ? OUT of ICU ? Subjective ROS Limited/Unobtainable: Yes Constitutional: Reports: malaise Objective Objective Last 24 Hour Vital Signs Date Time Temp Pulse Resp B/P (MAP) Pulse Ox O2 Delivery O2 Flow Rate FiO2 10/30/17 10:00 84 21 136/96 100 Mechanical Ventilator 45 10/30/17 09:04 91 21 45 10/30/17 09:00 92 138/96 10/30/17 09:00 92 20 149/99 100 Mechanical Ventilator 45 10/30/17 08:00 45 10/30/17 08:00 85 10/30/17 08:00 98.0 91 22 144/87 100 Mechanical Ventilator 45 10/30/17 07:30 139/84 10/30/17 07:13 95 22 45 10/30/17 07:00 92 24 146/94 100 Mechanical Ventilator 45 10/30/17 06:00 90 20 137/85 100 Mechanical Ventilator 45 10/30/17 05:25 101 26 45 10/30/17 05:00 94 22 145/87 100 Mechanical Ventilator 45 10/30/17 04:00 45 10/30/17 04:00 104 10/30/17 04:00 97.9 101 25 158/95 100 Mechanical Ventilator 45 10/30/17 03:00 91 19 130/78 100 Mechanical Ventilator 45 10/30/17 02:32 91 21 45 10/30/17 02:00 92 22 134/81 100 Mechanical Ventilator 45 10/30/17 01:02 88 19 45 10/30/17 01:00 90 21 137/79 100 Mechanical Ventilator 45 10/30/17 00:00 93 2/20/18 00:00 98.0 99 21 132/85 100 Mechanical Ventilator 45 2/20/18 00:00 45 2/19/18 23:11 99 28 45 2/19/18 23:00 90 21 140/79 100 Mechanical Ventilator 45 2/19/18 22:00 97 23 135/91 100 Mechanical Ventilator 45 2/19/18 21:08 95 27 45 2/19/18 21:00 96 22 134/85 100 Mechanical Ventilator 45 2/19/18 20:35 91 136/89 2/19/18 20:00 45 2/19/18 20:00 98.0 100 23 141/82 100 Mechanical Ventilator 45 2/19/18 20:00 97 2/19/18 19:00 96 23 135/83 100 Mechanical Ventilator 60 2/19/18 18:45 93 23 45 2/19/18 18:00 87 23 140/84 100 Mechanical Ventilator 60 2/19/18 17:08 95 27 45 2/19/18 17:00 93 25 131/85 100 Mechanical Ventilator 60 2/19/18 16:00 97 2/19/18 16:00 45 2/19/18 16:00 97.8 87 21 130/96 100 Mechanical Ventilator 60 2/19/18 15:05 92 27 45 2/19/18 15:00 90 23 127/88 100 Mechanical Ventilator 60 2/19/18 14:00 90 25 128/76 100 Mechanical Ventilator 60 2/19/18 13:30 97 124/74 2/19/18 13:15 93 30 45 2/19/18 13:00 88 25 124/74 100 Mechanical Ventilator 60 2/19/18 12:00 84 2/19/18 12:00 98.6 82 24 118/73 100 Mechanical Ventilator 60 2/19/18 12:00 45 2/19/18 11:10 84 22 45 2/19/18 11:00 85 22 119/68 100 Mechanical Ventilator 60 Intake and Output 18 2/18 19:00 07:00 Intake Total 530 ml 355 ml Output Total 50 ml 0 ml Balance 480 ml 355 ml IV Total 530 ml 355 ml Output Urine Total 0 ml 0 ml Stool Total 50 ml Laboratory Tests 10/30/17 05:00: White Blood Count 33.7*H, Red Blood Count 3.23L, Hemoglobin 9.8L, Hematocrit 28.2L, Mean Corpuscular Volume 87, Mean Corpuscular Hemoglobin 30.3, Mean Corpuscular Hemoglobin Concent 34.7, Red Cell Distribution Width 13.8, Platelet Count 292, Mean Platelet Volume 6.4L, Neutrophils (%) (Auto) , Lymphocytes (%) ( Auto) , Monocytes (%) (Auto) , Eosinophils (%) (Auto) , Basophils (%) (Auto) , Differential Total Cells Counted 100, Neutrophils % (Manual) 89H, Lymphocytes % (Manual) 2L, Monocytes % (Manual) 7, Eosinophils % (Manual) 0, Basophils % ( Manual) 0, Band Neutrophils 2, Platelet Estimate Adequate, Platelet Morphology Normal, Red Blood Cell Morphology Normal, Poikilocytosis 1+, Sodium Level 143, Potassium Level 3.3L, Chloride Level 106, Carbon Dioxide Level 25, Anion Gap 12 , Blood Urea Nitrogen 78H, Creatinine 5.9H, Estimat Glomerular Filtration Rate 11.9, Glucose Level 66L, Lactic Acid Level 1.10, Uric Acid 8.9H, Calcium Level 7.1L, Phosphorus Level 5.8H, Magnesium Level 2.0, Total Bilirubin 0.6, Aspartate Amino Transf (AST/SGOT) 198H, Alanine Aminotransferase (ALT/SGPT) 728H , Alkaline Phosphatase 126H, Pro-B-Type Natriuretic Peptide 7851H, Total Protein 4.5L, Albumin 1.5L, Globulin 3.0, Albumin/Globulin Ratio 0.5L 10/30/17 09:02: Arterial Blood pH 7.411, Arterial Blood Partial Pressure CO2 32.0L, Arterial Blood Partial Pressure O2 95.7, Arterial Blood HCO3 19.9L, Arterial Blood Oxygen Saturation 96.6, Arterial Blood Base Excess -4.0, Dipak Test Positive Height (Feet): 5 Height (Inches): 6.00 Weight (Pounds): 205 General Appearance: no apparent distress, lethargic Cardiovascular: tachycardia Respiratory/Chest: decreased breath sounds Abdomen: distended Objective no other change YVES SINHA Oct 30, 2017 10:55
--- NOTE | 2017-10-30 11:57 | Cardiology Progress Note ---
Assessment/Plan Assessment/Plan 1. Cardiopulmonary arrest on three separate occasions. 2. Massive gastrointestinal bleed. 3. Encephalopathy. 4. Abnormal liver function tests, likely shock liver. 5. Acute renal failure. 6. Anemia. 7. NSTEMI type2 related to cardiopulmonary resuscitation and renal insufficiency. 8. Chronic respiratory failure. 9. History of cerebrovascular accident. 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 furnace reviweed Subjective ROS Limited/Unobtainable: Yes Objective Last 24 Hour Vital Signs Date Time Temp Pulse Resp B/P (MAP) Pulse Ox O2 Delivery O2 Flow Rate FiO2 10/30/17 10:56 90 24 45 10/30/17 10:00 84 21 136/96 100 Mechanical Ventilator 45 10/30/17 09:04 91 21 45 10/30/17 09:00 92 138/96 10/30/17 09:00 92 20 149/99 100 Mechanical Ventilator 45 10/30/17 08:00 45 18 08:00 85 10/30/17 08:00 98.0 91 22 144/87 100 Mechanical Ventilator 45 10/30/17 07:30 139/84 10/30/17 07:13 95 22 45 10/30/17 07:00 92 24 146/94 100 Mechanical Ventilator 45 10/30/17 06:00 90 20 137/85 100 Mechanical Ventilator 45 10/30/17 05:25 101 26 45 10/30/17 05:00 94 22 145/87 100 Mechanical Ventilator 45 18 04:00 45 20/18 04:00 104 218 04:00 97.9 101 25 158/95 100 Mechanical Ventilator 45 10/30/18 03:00 91 19 130/78 100 Mechanical Ventilator 45 18 02:32 91 21 45 10/30/18 02:00 92 22 134/81 100 Mechanical Ventilator 45 10/30/18 01:02 88 19 45 220/18 01:00 90 21 137/79 100 Mechanical Ventilator 45 18 00:00 93 10/30/17 00:00 98.0 99 21 132/85 100 Mechanical Ventilator 45 2/20/18 00:00 45 2/19/18 23:11 99 28 45 2/19/18 23:00 90 21 140/79 100 Mechanical Ventilator 45 2/19/18 22:00 97 23 135/91 100 Mechanical Ventilator 45 2/19/18 21:08 95 27 45 2/19/18 21:00 96 22 134/85 100 Mechanical Ventilator 45 2/19/18 20:35 91 136/89 2/19/18 20:00 45 2/19/18 20:00 98.0 100 23 141/82 100 Mechanical Ventilator 45 2/19/18 20:00 97 2/19/18 19:00 96 23 135/83 100 Mechanical Ventilator 60 2/19/18 18:45 93 23 45 2/19/18 18:00 87 23 140/84 100 Mechanical Ventilator 60 2/19/18 17:08 95 27 45 2/19/18 17:00 93 25 131/85 100 Mechanical Ventilator 60 2//18 16:00 97 2/19/18 16:00 45 2//18 16:00 97.8 87 21 130/96 100 Mechanical Ventilator 60 2/19/18 15:05 92 27 45 2/19/18 15:00 90 23 127/88 100 Mechanical Ventilator 60 2/19/18 14:00 90 25 128/76 100 Mechanical Ventilator 60 2//18 13:30 97 124/74 2/19/18 13:15 93 30 45 2/19/18 13:00 88 25 124/74 100 Mechanical Ventilator 60 2/18 12:00 84 2/19/18 12:00 98.6 82 24 118/73 100 Mechanical Ventilator 60 10/29/18 12:00 45 General Appearance: on vent, patient on isolation Neck: supple Cardiovascular: normal rate Respiratory/Chest: rhonchi - bilaterally Abdomen: normal bowel sounds, non tender, soft Extremities: moderate edema Intake and Output 10/29/17 10/30/17 19:00 07:00 Intake Total 530 ml 355 ml Output Total 50 ml 0 ml Balance 480 ml 355 ml IV Total 530 ml 355 ml Output Urine Total 0 ml 0 ml Stool Total 50 ml Laboratory Tests Test 10/30/17 05:00 10/30/17 09:02 White Blood Count 33.7 K/UL (4.8-10.8) *H Red Blood Count 3.23 M/UL (4.70-6.10) L Hemoglobin 9.8 G/DL (14.2-18.0) L Hematocrit 28.2 % (42.0-52.0) L Mean Corpuscular Volume 87 FL (80-99) Mean Corpuscular Hemoglobin 30.3 PG (27.0-31.0) Mean Corpuscular Hemoglobin Concent 34.7 G/DL (32.0-36.0) Red Cell Distribution Width 13.8 % (11.6-14.8) Platelet Count 292 K/UL (150-450) Mean Platelet Volume 6.4 FL (6.5-10.1) L Neutrophils (%) (Auto) % (45.0-75.0) Lymphocytes (%) (Auto) % (20.0-45.0) Monocytes (%) (Auto) % (1.0-10.0) Eosinophils (%) (Auto) % (0.0-3.0) Basophils (%) (Auto) % (0.0-2.0) Differential Total Cells Counted 100 Neutrophils % (Manual) 89 % (45-75) H Lymphocytes % (Manual) 2 % (20-45) L Monocytes % (Manual) 7 % (1-10) Eosinophils % (Manual) 0 % (0-3) Basophils % (Manual) 0 % (0-2) Band Neutrophils 2 % (0-8) Platelet Estimate Adequate Platelet Morphology Normal Red Blood Cell Morphology Normal Poikilocytosis 1+ Sodium Level 143 MMOL/L (136-145) Potassium Level 3.3 MMOL/L (3.5-5.1) L Chloride Level 106 MMOL/L (98-107) Carbon Dioxide Level 25 MMOL/L (21-32) Anion Gap 12 mmol/L (5-15) Blood Urea Nitrogen 78 mg/dL (7-18) H Creatinine 5.9 MG/DL (0.55-1.30) H Estimat Glomerular Filtration Rate 11.9 mL/min (>60) Glucose Level 66 MG/DL (74-106) L Lactic Acid Level 1.10 mmol/L (0.66-2.22) Uric Acid 8.9 MG/DL (2.6-7.2) H Calcium Level 7.1 MG/DL (8.5-10.1) L Phosphorus Level 5.8 MG/DL (2.5-4.9) H Magnesium Level 2.0 MG/DL (1.8-2.4) Total Bilirubin 0.6 MG/DL (0.2-1.0) Aspartate Amino Transf (AST/SGOT) 198 U/L (15-37) H Alanine Aminotransferase (ALT/SGPT) 728 U/L (12-78) H Alkaline Phosphatase 126 U/L (46-116) H C-Reactive Protein, Quantitative 19.9 mg/dL (0.00-0.90) H Pro-B-Type Natriuretic Peptide 7851 pg/mL (0-125) H Total Protein 4.5 G/DL (6.4-8.2) L Albumin 1.5 G/DL (3.4-5.0) L Globulin 3.0 g/dL Albumin/Globulin Ratio 0.5 (1.0-2.7) L Arterial Blood pH 7.411 (7.350-7.450) Arterial Blood Partial Pressure CO2 32.0 mmHg (35.0-45.0) L Arterial Blood Partial Pressure O2 95.7 mmHg (75.0-100.0) Arterial Blood HCO3 19.9 mmol/L (22.0-26.0) L Arterial Blood Oxygen Saturation 96.6 % (92.0-98.0) Arterial Blood Base Excess -4.0 Dipak Test Positive CHRISTEN LOVE Oct 30, 2017 11:57
--- NOTE | 2017-10-30 12:01 | General Progress Note ---
Progress Note Progress Note Surgery: no acute events. stable. right groin cath in place and functional. plan for HD again today. trach in place and functional. opens eyes but does not follow commands. still with significant leukocytosis but trending down. labs reviewed. abdominal exam improved. -continue with current care and management. -bowel care -trach care -HD per line Darren Davis Oct 30, 2017 12:01
--- NOTE | 2017-10-30 12:38 | Pulmonolgy Critical Care Note ---
Critical Care - Asmt/Plan Assessment/Plan: ASSESSMENT s/p cardiac arrest ( due to acute GI hemorrhage on 10/26) x 3 acute GI hemorrhage-persistent hypovolemic shock ( due to GI hemorrhage)-resolved elevated troponin, likely due to multiple cardiac arrest and shocks possible acute VA severely elevated LFT , likely shock liver multiorgan system failure acute anemia of blood loss, requiring 3 u PRBC s/p trach 10/23 trach malfunctioning, s/p trach exchange 10/26 acute renal failure acute hypoxemic RF requiring BiPAP, unable to wean ( s/p trach) severe sepsis with E coli bacteremia ( s/p Rx) E coli UTI ( s/p Rx) C dif colitis probably PNA acute bronchitis possible influenza ( s/p Rx) hematuria lactic acidosis 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 seizure disorder HTN CAD with hx of VA dysphagia, s/p PEG dementia R lateral malleolus DTI PLAN OF CARE ICU BP better off Levophed FiO2 down to 45% improving ABG stable per cardio troponin likely due to cardiac arrest x 3, troponin trending down ECHO done- pEF 60-65%, no change from itiial s/p trach exchange due to leak by surgeon, currently trach functional ABG and CXR in am Pulmonary toilet with HHN, suction as needed Protonix gtt s/p emergent EGD , ulcer noted, vessel clipped recurrent bleeding since last night transfuse additional 2 u PRBC Protonix gtt GI follows if bleeding continues, will likely need another GI procedure /exploration for cause s/p 3 u PRBC prior monitor counts, monitor for active bleeding HH remains stable off Protonix gtt as per nephro strict asp precautions, s/p PEG, currently NPO a/emetic prn bowel regimen ? leking tube rectal tube for stool containing 2 to C dif diarrhea nephro follows monitor renal parameters, correct lytes as needed, avoid nephrotoxic renal US done earlier with normal bilateral kidney echogenicity and no hydro worsening renal parameters , started on HD severely elevated LFT likely due to shock liver, trending down overall multiple organ/system failure-improving ID follows blood cx + E mitchel, urine cx + E coli, s/p rx Influenza negative ( but rapid test with only sensitivity 60-65%, by history high suspicion for flu), s/p Tamiflu empiric abx leukocytosis persistent stool C dif+ start po Vanco and Flagyl, further management per ID ECHO with pEF 60-65% CTA no PE hold ASA for now due to acute GI bleeding continue BB and statin troponin negative urologist seen and evaluated for hematuria Cervantes seizure precautions, on Depakote , monitor levels transfer to [facility] case discussed and evaluated by supervising physician Critical Care - Objective Last 24 Hour Vital Signs Date Time Temp Pulse Resp B/P (MAP) Pulse Ox O2 Delivery O2 Flow Rate FiO2 10/30/17 10:56 90 24 45 2/18 10:00 84 21 136/96 100 Mechanical Ventilator 45 10/30/18 09:04 91 21 45 220/18 09:00 92 138/96 220/18 09:00 92 20 149/99 100 Mechanical Ventilator 45 10/30/18 08:00 45 20/18 08:00 85 10/30/18 08:00 98.0 91 22 144/87 100 Mechanical Ventilator 45 18 07:30 139/84 2/ 07:13 95 22 45 10/30/ 07:00 92 24 146/94 100 Mechanical Ventilator 45 10/30/17 06:00 90 20 137/85 100 Mechanical Ventilator 45 10/30/18 05:25 101 26 45 2/20/18 05:00 94 22 145/87 100 Mechanical Ventilator 45 10/30/18 04:00 45 20/18 04:00 104 10/30/18 04:00 97.9 101 25 158/95 100 Mechanical Ventilator 45 10/30/18 03:00 91 19 130/78 100 Mechanical Ventilator 45 10/30/18 02:32 91 21 45 2/18 02:00 92 22 134/81 100 Mechanical Ventilator 45 10/30/18 01:02 88 19 45 2/20/18 01:00 90 21 137/79 100 Mechanical Ventilator 45 2/20/18 00:00 93 2/20/18 00:00 98.0 99 21 132/85 100 Mechanical Ventilator 45 2/20/18 00:00 45 2/19/18 23:11 99 28 45 2/19/18 23:00 90 21 140/79 100 Mechanical Ventilator 45 2//18 22:00 97 23 135/91 100 Mechanical Ventilator 45 2//18 21:08 95 27 45 2//18 21:00 96 22 134/85 100 Mechanical Ventilator 45 2//18 20:35 91 136/89 10/29/17 20:00 45 10/29/17 20:00 98.0 100 23 141/82 100 Mechanical Ventilator 45 10/29/17 20:00 97 10/29/17 19:00 96 23 135/83 100 Mechanical Ventilator 60 10/29/17 18:45 93 23 45 10/29/17 18:00 87 23 140/84 100 Mechanical Ventilator 60 10/29/17 17:08 95 27 45 10/29/17 17:00 93 25 131/85 100 Mechanical Ventilator 60 10/29/17 16:00 97 10/29/17 16:00 45 10/29/17 16:00 97.8 87 21 130/96 100 Mechanical Ventilator 60 10/29/17 15:05 92 27 45 10/29/17 15:00 90 23 127/88 100 Mechanical Ventilator 60 10/29/17 14:00 90 25 128/76 100 Mechanical Ventilator 60 10/29/17 13:30 97 124/74 10/29/17 13:15 93 30 45 10/29/17 13:00 88 25 124/74 100 Mechanical Ventilator 60 Objective: Status: awake, poorly responsive , mild respiratory distress Condition: critical, grave HEENT: atraumatic, normocephalic Neck: trach with Portex #8, secretions thick, gongora, moderate Lungs: few scattered rhonchi , crackles at bases , tachypneic Heart: HR/BP stable, regular, tachy, SR- tele , RIJ CL intact, R fem HD catheter intact Abdomen: soft, non-tender, active bowel sounds, feeding tube, dark brown drainage, colostomy bag placed, rectal tube with liquid black drainage Extremities: trace edema BLE Critical Care - Subjective Interval Events: afebrile, leuk trending down FiO2 down to 45% improving ABG stable on current settings IV Access: central - RIJ CL intact, R femoral HD catheter FI02: 45 Vent Support Breath Rate: 18 Vent Support Mode: AC Vent Tidal Volume: 550 Sputum Amount: Moderate PEEP: 10.0 PIP: 23 Tube Feeding Amount: 20 I&O: Intake and Output 10/29/17 10/30/17 19:00 07:00 Intake Total 530 ml 355 ml Output Total 50 ml 0 ml Balance 480 ml 355 ml IV Total 530 ml 355 ml Output Urine Total 0 ml 0 ml Stool Total 50 ml CXR: 2/20 -Slightly increased hazy opacity left lung base and obscuration of left hemidiaphragm, may reflect increased infiltrates and/or pleural fluid ET-Tube: 8.0 ET Position: [address] [place] ([facility] HOPE Oct 30, 2017 12:38
--- NOTE | 2017-10-30 12:58 | GI Progress Note ---
Assessment/Plan Problems: (1) Dysphagia ICD Codes: R13.10 - Dysphagia, unspecified SNOMED: 88230599, 118698568 (2) Dementia ICD Codes: F03.90 - Unspecified dementia without behavioral disturbance SNOMED: 74382775 (3) PEG (percutaneous endoscopic gastrostomy) adjustment/replacement/removal ICD Codes: Z43.1 - Encounter for attention to gastrostomy SNOMED: 798525752, 353251597 (4) CVA, old, hemiparesis ICD Codes: I69.359 - Hemiplegia and hemiparesis following cerebral infarction affecting unspecified side SNOMED: 10794083, 59855555, 6460218777436 Status: unchanged Status Narrative Discussed with Dr. Campos. Assessment/Plan Distended small bowel. Ileus versus obstruction. Rectal fecal impaction. >> resolved, repeat KUB shows no acute process. s/p EGD and hemostasis on Sunday now with ? recurrent bleed, transfuse 2 units yesterday cdiff positive >> dc ppi gtt, H2B BID start GTFs today per RD to goal cont Protonix drip prn transfusions fu cardiology poor prognosis plan repeat EGD if needed fu labs Subjective Subjective limited Objective Last 24 Hour Vital Signs Date Time Temp Pulse Resp B/P (MAP) Pulse Ox O2 Delivery O2 Flow Rate FiO2 10/30/17 12:54 103 20 45 10/30/17 10:56 90 24 45 10/30/17 10:00 84 21 136/96 100 Mechanical Ventilator 45 10/30/17 09:04 91 21 45 10/30/17 09:00 92 138/96 10/30/17 09:00 92 20 149/99 100 Mechanical Ventilator 45 10/30/17 08:00 45 10/30/17 08:00 85 10/30/17 08:00 98.0 91 22 144/87 100 Mechanical Ventilator 45 10/30/17 07:30 139/84 10/30/17 07:13 95 22 45 10/30/17 07:00 92 24 146/94 100 Mechanical Ventilator 45 10/30/17 06:00 90 20 137/85 100 Mechanical Ventilator 45 10/30/17 05:25 101 26 45 10/30/17 05:00 94 22 145/87 100 Mechanical Ventilator 45 10/30/17 04:00 45 10/30/17 04:00 104 2/20/18 04:00 97.9 101 25 158/95 100 Mechanical Ventilator 45 2/20/18 03:00 91 19 130/78 100 Mechanical Ventilator 45 2/20/18 02:32 91 21 45 2/20/18 02:00 92 22 134/81 100 Mechanical Ventilator 45 2/20/18 01:02 88 19 45 2/20/18 01:00 90 21 137/79 100 Mechanical Ventilator 45 2/20/18 00:00 93 2/20/18 00:00 98.0 99 21 132/85 100 Mechanical Ventilator 45 2/20/18 00:00 45 2/19/18 23:11 99 28 45 2/19/18 23:00 90 21 140/79 100 Mechanical Ventilator 45 2/19/18 22:00 97 23 135/91 100 Mechanical Ventilator 45 2/19/18 21:08 95 27 45 2/19/18 21:00 96 22 134/85 100 Mechanical Ventilator 45 2/19/18 20:35 91 136/89 2/19/18 20:00 45 2/19/18 20:00 98.0 100 23 141/82 100 Mechanical Ventilator 45 2/19/18 20:00 97 2/19/18 19:00 96 23 135/83 100 Mechanical Ventilator 60 2/19/18 18:45 93 23 45 2/19/18 18:00 87 23 140/84 100 Mechanical Ventilator 60 2/19/18 17:08 95 27 45 2/19/18 17:00 93 25 131/85 100 Mechanical Ventilator 60 2/19/18 16:00 97 2/19/18 16:00 45 2/19/18 16:00 97.8 87 21 130/96 100 Mechanical Ventilator 60 2/19/18 15:05 92 27 45 2/19/18 15:00 90 23 127/88 100 Mechanical Ventilator 60 2/19/18 14:00 90 25 128/76 100 Mechanical Ventilator 60 2/19/18 13:30 97 124/74 2/19/18 13:15 93 30 45 2/19/18 13:00 88 25 124/74 100 Mechanical Ventilator 60 Intake and Output 19/18 2/20/18 19:00 07:00 Intake Total 530 ml 355 ml Output Total 50 ml 0 ml Balance 480 ml 355 ml IV Total 530 ml 355 ml Output Urine Total 0 ml 0 ml Stool Total 50 ml Laboratory Tests Test 10/30/17 05:00 10/30/17 09:02 White Blood Count 33.7 K/UL (4.8-10.8) *H Red Blood Count 3.23 M/UL (4.70-6.10) L Hemoglobin 9.8 G/DL (14.2-18.0) L Hematocrit 28.2 % (42.0-52.0) L Mean Corpuscular Volume 87 FL (80-99) Mean Corpuscular Hemoglobin 30.3 PG (27.0-31.0) Mean Corpuscular Hemoglobin Concent 34.7 G/DL (32.0-36.0) Red Cell Distribution Width 13.8 % (11.6-14.8) Platelet Count 292 K/UL (150-450) Mean Platelet Volume 6.4 FL (6.5-10.1) L Neutrophils (%) (Auto) % (45.0-75.0) Lymphocytes (%) (Auto) % (20.0-45.0) Monocytes (%) (Auto) % (1.0-10.0) Eosinophils (%) (Auto) % (0.0-3.0) Basophils (%) (Auto) % (0.0-2.0) Differential Total Cells Counted 100 Neutrophils % (Manual) 89 % (45-75) H Lymphocytes % (Manual) 2 % (20-45) L Monocytes % (Manual) 7 % (1-10) Eosinophils % (Manual) 0 % (0-3) Basophils % (Manual) 0 % (0-2) Band Neutrophils 2 % (0-8) Platelet Estimate Adequate Platelet Morphology Normal Red Blood Cell Morphology Normal Poikilocytosis 1+ Sodium Level 143 MMOL/L (136-145) Potassium Level 3.3 MMOL/L (3.5-5.1) L Chloride Level 106 MMOL/L (98-107) Carbon Dioxide Level 25 MMOL/L (21-32) Anion Gap 12 mmol/L (5-15) Blood Urea Nitrogen 78 mg/dL (7-18) H Creatinine 5.9 MG/DL (0.55-1.30) H Estimat Glomerular Filtration Rate 11.9 mL/min (>60) Glucose Level 66 MG/DL (74-106) L Lactic Acid Level 1.10 mmol/L (0.66-2.22) Uric Acid 8.9 MG/DL (2.6-7.2) H Calcium Level 7.1 MG/DL (8.5-10.1) L Phosphorus Level 5.8 MG/DL (2.5-4.9) H Magnesium Level 2.0 MG/DL (1.8-2.4) Total Bilirubin 0.6 MG/DL (0.2-1.0) Aspartate Amino Transf (AST/SGOT) 198 U/L (15-37) H Alanine Aminotransferase (ALT/SGPT) 728 U/L (12-78) H Alkaline Phosphatase 126 U/L (46-116) H C-Reactive Protein, Quantitative 19.9 mg/dL (0.00-0.90) H Pro-B-Type Natriuretic Peptide 7851 pg/mL (0-125) H Total Protein 4.5 G/DL (6.4-8.2) L Albumin 1.5 G/DL (3.4-5.0) L Globulin 3.0 g/dL Albumin/Globulin Ratio 0.5 (1.0-2.7) L Arterial Blood pH 7.411 (7.350-7.450) Arterial Blood Partial Pressure CO2 32.0 mmHg (35.0-45.0) L Arterial Blood Partial Pressure O2 95.7 mmHg (75.0-100.0) Arterial Blood HCO3 19.9 mmol/L (22.0-26.0) L Arterial Blood Oxygen Saturation 96.6 % (92.0-98.0) Arterial Blood Base Excess -4.0 Dipak Test Positive Height (Feet): 5 Height (Inches): 6.00 Weight (Pounds): 205 General Appearance: no apparent distress Cardiovascular: normal rate Respiratory/Chest: other - trach to vent Abdominal Exam: distended - but soft, GT site - c/d/i Laura Lucas N.P. Oct 30, 2017 12:58
[2017-10-30] MEDS: Meropenem 500mg/NS 55ml IVPB SCH ×2 (13:15)
[2017-10-30] MEDS ORDERED: Metoclopramide 10mg/10ml Liq GT PRN ×2 (15:00→19:00)
--- NOTE | 2017-10-30 15:28 | Cardiology Report ---
APPROVED REPORT EKG Measurement Heart [id number] FL 232P [id number] Sinus tachycardia with 1st degree AV block Otherwise normal ECG
[2017-10-30] MEDS ORDERED: D5 1/2NS 1000ml IV ONE ×3 (15:59→16:45)
[2017-10-30] MEDS ORDERED: D5W 275ml ONE (15:59)
[2017-10-30] MEDS ORDERED: Tubing IV Secondary IV ONE ×2 (15:59→16:44)
[2017-10-30] MEDS ORDERED: Tubing Blood Filter IV ONE (16:45)
[2017-10-30] MEDS ORDERED: NS 275ml ONE (16:45)
[2017-10-30] MEDS ORDERED: Acetaminophen 650 MG SUPP RECTAL PRN ×2 (19:00→21:00)
[2017-10-30] MEDS ORDERED: Albuterol/Ipratropium 3ml neb HHN PRN ×2 (19:00→21:00)
[2017-10-30] MEDS ORDERED: Nitroglycerin Subl 0.4mg tab SL PRN ×2 (19:00→20:45)
[2017-10-30] MEDS ORDERED: Morphine Sulfate 4mg/ml Inj IVP PRN ×2 (19:00→21:00)
[2017-10-30] MEDS ORDERED: Dyna-Hex 2% Top Sol 2oz TOPIC SCH (20:00)
[2017-10-30] MEDS ORDERED: Metoprolol 25mg tab GT SCH ×2 (21:00)
[2017-10-30] MEDS ORDERED: Vancomycin oral 125mg/2.5ml ORAL SCH (21:00)
[2017-10-30] MEDS ORDERED: Pantoprazole Inj IVP SCH ×2 (21:00)
[2017-10-30] MEDS: Dyna-Hex 2% Top Sol 2oz TOPIC SCH (22:16)
[2017-10-30] MEDS: Metoprolol 25mg tab GT SCH (22:16)
[2017-10-30] MEDS ORDERED: Meropenem 500 MG in NS 55 ML IVPB SCH (23:00)
[2017-10-31] VITALS: BP 149/97
[2017-10-31 04:00] VITALS: BP 149/89
[2017-10-31 05:54] LABS: HEMATOCRIT 28.4 % (42.0-52.0); HEMOGLOBIN 9.7 G/DL (14.2-18.0); MEAN CORPUSCULAR VOLUME 88 FL (80-99); PLATELET COUNT 325 K/UL (150-450); RED BLOOD COUNT 3.21 M/UL (4.70-6.10); RED CELL DISTRIBUTION WIDTH 14.1 % (11.6-14.8)
[2017-10-31] MEDS: Flagyl 500mg/NS 100ml Pre-Mix IV SCH (06:36)
[2017-10-31 06:40] LABS: WHITE BLOOD COUNT 35.7 K/UL (4.8-10.8)
[2017-10-31 07:08] LABS: ANION GAP 10 mmol/L (5-15); CALCIUM 7.6 MG/DL (8.5-10.1); CARBON DIOXIDE 27 MMOL/L (21-32); CHLORIDE 111 MMOL/L (98-107); CREATININE 4.7 MG/DL (0.55-1.30); POTASSIUM 3.5 MMOL/L (3.5-5.1); SODIUM 148 MMOL/L (136-145)
[2017-10-31 07:27] LABS: ALANINE AMINOTRANSFERASE 471 U/L (12-78); ALBUMIN 1.5 G/DL (3.4-5.0); ALBUMIN/GLOBULIN RATIO 0.5 (1.0-2.7); ALKALINE PHOSPHATASE 121 U/L (46-116); ANION GAP 11 mmol/L (5-15); ASPARTATE AMINO TRANSFERASE 81 U/L (15-37); BILIRUBIN,TOTAL 0.6 MG/DL (0.2-1.0); BLOOD UREA NITROGEN 59 mg/dL (7-18); CALCIUM 7.6 MG/DL (8.5-10.1); CARBON DIOXIDE 27 MMOL/L (21-32); CHLORIDE 111 MMOL/L (98-107); CHOLESTEROL 52 MG/DL (< 200); CREATININE 4.6 MG/DL (0.55-1.30); HDL CHOLESTEROL 18 MG/DL (40-60); PHOSPHORUS 5.2 MG/DL (2.5-4.9); POTASSIUM 3.6 MMOL/L (3.5-5.1); SODIUM 149 MMOL/L (136-145); TRIGLYCERIDES 66 MG/DL (30-150)
[2017-10-31 07:32] LABS: BLOOD UREA NITROGEN 55 mg/dL (7-18)
[2017-10-31 08:00] VITALS: BP 138/79
[2017-10-31] MEDS: Metoprolol 25mg tab GT SCH ×2 (09:11→20:30)
[2017-10-31] MEDS: Vancomycin oral 125mg/2.5ml ORAL SCH ×4 (09:17→20:51)
--- NOTE | 2017-10-31 10:24 | GI Progress Note ---
Assessment/Plan Problems: (1) Dysphagia ICD Codes: R13.10 - Dysphagia, unspecified SNOMED: 33153192, 271602761 (2) Dementia ICD Codes: F03.90 - Unspecified dementia without behavioral disturbance SNOMED: 31020329 (3) PEG (percutaneous endoscopic gastrostomy) adjustment/replacement/removal ICD Codes: Z43.1 - Encounter for attention to gastrostomy SNOMED: 953006996, 298605202 (4) CVA, old, hemiparesis ICD Codes: I69.359 - Hemiplegia and hemiparesis following cerebral infarction affecting unspecified side SNOMED: 14984689, 49915387, [id number] Status: unchanged Status Narrative Discussed with Dr. Campos. Assessment/Plan Distended small bowel. Ileus versus obstruction. Rectal fecal impaction. >> resolved, repeat KUB shows no acute process. s/p EGD and hemostasis on Sunday now with ? recurrent bleed, transfuse 2 units yesterday cdiff positive >> dc ppi gtt, H2B BID GTFs today per RD to goal prn transfusions abx poor prognosis plan repeat EGD if needed fu labs Subjective Subjective limited Objective Last 24 Hour Vital Signs Date Time Temp Pulse Resp B/P (MAP) Pulse Ox O2 Delivery O2 Flow Rate FiO2 10/31/17 09:39 106 25 45 10/31/17 09:11 89 138/79 10/31/17 08:00 45 10/31/17 08:00 98.2 89 19 138/79 100 Mechanical Ventilator 45 98.2 10/31/17 08:00 89 10/31/17 07:56 96 21 45 10/31/17 05:16 94 21 45 10/31/17 04:00 98.4 93 20 149/89 100 Mechanical Ventilator 45 98.4 10/31/17 04:00 100 10/31/17 04:00 40 10/31/17 03:30 94 21 45 10/31/17 01:30 87 19 45 10/31/17 00:00 98.4 93 17 149/97 100 Mechanical Ventilator 45 98.4 10/31/17 00:00 93 10/31/17 00:00 40 10/30/17 23:17 103 25 45 10/30/17 22:16 90 147/87 10/30/17 21:30 97 22 45 10/30/17 20:10 104 10/30/17 20:00 40 10/30/17 20:00 98.3 90 19 147/87 100 Mechanical Ventilator 45 98.3 10/30/17 19:30 107 29 45 10/30/17 18:00 110 18 149/93 100 Mechanical Ventilator 45 10/30/17 17:40 Mechanical Ventilator 45 10/30/17 17:40 98.0 111 28 146/91 Mechanical Ventilator 45 98.0 10/30/17 17:06 106 21 45 10/30/17 17:00 105 20 146/91 100 Mechanical Ventilator 45 10/30/17 16:00 103 22 148/93 100 Mechanical Ventilator 45 10/30/17 16:00 102 10/30/17 16:00 45 10/30/17 15:00 93 18 149/96 100 Mechanical Ventilator 45 10/30/17 14:34 97 23 45 10/30/17 14:00 97.7 91 28 150/97 Mechanical Ventilator 45 97.7 10/30/17 14:00 Mechanical Ventilator 45 10/30/17 14:00 107 18 139/72 100 Mechanical Ventilator 45 10/30/17 13:00 95 20 150/90 100 Mechanical Ventilator 45 10/30/17 12:54 103 20 45 10/30/17 12:00 98.2 91 22 144/91 100 Mechanical Ventilator 45 10/30/17 12:00 85 10/30/17 12:00 45 10/30/17 11:00 89 21 145/88 100 Mechanical Ventilator 45 10/30/17 10:56 90 24 45 Intake and Output 10/30/17 10/31/17 19:00 07:00 Intake Total 55 ml 850 ml Output Total 1000 ml 0 ml Balance -945 ml 850 ml Free Water 450 ml IV Total 55 ml 100 ml Tube Feeding 300 ml Output Urine Total 0 ml 0 ml Stool Total 0 ml 0 ml Hemodialysis UF 1000 ml Laboratory Tests Test 10/31/17 04:00 White Blood Count 35.7 K/UL (4.8-10.8) *H Red Blood Count 3.21 M/UL (4.70-6.10) L Hemoglobin 9.7 G/DL (14.2-18.0) L Hematocrit 28.4 % (42.0-52.0) L Mean Corpuscular Volume 88 FL (80-99) Mean Corpuscular Hemoglobin 30.2 PG (27.0-31.0) Mean Corpuscular Hemoglobin Concent 34.2 G/DL (32.0-36.0) Red Cell Distribution Width 14.1 % (11.6-14.8) Platelet Count 325 K/UL (150-450) Mean Platelet Volume 6.1 FL (6.5-10.1) L Neutrophils (%) (Auto) % (45.0-75.0) Lymphocytes (%) (Auto) % (20.0-45.0) Monocytes (%) (Auto) % (1.0-10.0) Eosinophils (%) (Auto) % (0.0-3.0) Basophils (%) (Auto) % (0.0-2.0) Differential Total Cells Counted 100 Neutrophils % (Manual) 84 % (45-75) H Lymphocytes % (Manual) 7 % (20-45) L Monocytes % (Manual) 8 % (1-10) Eosinophils % (Manual) 1 % (0-3) Basophils % (Manual) 0 % (0-2) Band Neutrophils 0 % (0-8) Platelet Estimate Adequate Platelet Morphology Normal Polychromasia 1+ Anisocytosis 1+ Sodium Level 148 MMOL/L (136-145) H Potassium Level 3.5 MMOL/L (3.5-5.1) Chloride Level 111 MMOL/L (98-107) H Carbon Dioxide Level 27 MMOL/L (21-32) Anion Gap 10 mmol/L (5-15) Blood Urea Nitrogen 55 mg/dL (7-18) H Creatinine 4.7 MG/DL (0.55-1.30) H Estimat Glomerular Filtration Rate 15.4 mL/min (>60) Glucose Level 92 MG/DL (74-106) Lactic Acid Level 1.10 mmol/L (0.66-2.22) Uric Acid 6.8 MG/DL (2.6-7.2) Calcium Level 7.6 MG/DL (8.5-10.1) L Phosphorus Level 5.2 MG/DL (2.5-4.9) H Magnesium Level 2.0 MG/DL (1.8-2.4) Total Bilirubin 0.6 MG/DL (0.2-1.0) Aspartate Amino Transf (AST/SGOT) 81 U/L (15-37) H Alanine Aminotransferase (ALT/SGPT) 471 U/L (12-78) H Alkaline Phosphatase 121 U/L (46-116) H Troponin I 0.334 ng/mL (0.000-0.056) Pro-B-Type Natriuretic Peptide 5225 pg/mL (0-125) H Total Protein 4.6 G/DL (6.4-8.2) L Albumin 1.5 G/DL (3.4-5.0) L Globulin 3.1 g/dL Albumin/Globulin Ratio 0.5 (1.0-2.7) L Triglycerides Level 66 MG/DL (30-150) Cholesterol Level 52 MG/DL (< 200) LDL Cholesterol 22 mg/dL (<100) HDL Cholesterol 18 MG/DL (40-60) L Cholesterol/HDL Ratio 2.9 (3.3-4.4) L Lipase 417 U/L (73-393) H Thyroid Stimulating Hormone (TSH) 3.789 uiU/mL (0.358-3.740) Height (Feet): 5 Height (Inches): 6.00 Weight (Pounds): 111 General Appearance: no apparent distress, alert Cardiovascular: normal rate Respiratory/Chest: no respiratory distress, other - trach to vent Abdominal Exam: soft, distended - tympanic, GT site - c/d/i Laura Lucas N.P. Oct 31, 2017 10:24
--- NOTE | 2017-10-31 11:25 | Nephrology Progress Note ---
Assessment/Plan Problem List: (1) Acute renal failure (ARF) (2) Respiratory failure (3) Shock liver Assessment JULIA , due to Shock , Hemorrhagic / Septic / C dif colitis Off Pressors- Shock liver resolving High Troponin: MS Bradycardic - Vfib cardiac arrest 10/26 likely 2ry to hemorrhagic shock (drop Hgb 10.8 to 5) - GIB- Fever, ongoing Leukocytosis, worsening after code E.coli UTI w/ bacteremia Acute hypoxic resp failure- s/p Trach . Plan Plan: BP stablized DC Protonix drip start GT feeding HD trial as needed- last one 10/30 on C dif treatment protocol monitor urine out put and Renal parameters Subjective ROS Limited/Unobtainable: Yes Objective Objective Last 24 Hour Vital Signs Date Time Temp Pulse Resp B/P (MAP) Pulse Ox O2 Delivery O2 Flow Rate FiO2 10/31/17 09:39 106 25 45 10/31/17 09:11 89 138/79 10/31/17 08:00 45 10/31/17 08:00 98.2 89 19 138/79 100 Mechanical Ventilator 45 98.2 10/31/17 08:00 89 10/31/17 07:56 96 21 45 10/31/17 05:16 94 21 45 10/31/17 04:00 98.4 93 20 149/89 100 Mechanical Ventilator 45 98.4 10/31/17 04:00 100 10/31/17 04:00 40 10/31/17 03:30 94 21 45 10/31/17 01:30 87 19 45 10/31/17 00:00 98.4 93 17 149/97 100 Mechanical Ventilator 45 98.4 10/31/17 00:00 93 10/31/17 00:00 40 10/30/17 23:17 103 25 45 10/30/17 22:16 90 147/87 10/30/17 21:30 97 22 45 10/30/17 20:10 104 10/30/17 20:00 40 10/30/17 20:00 98.3 90 19 147/87 100 Mechanical Ventilator 45 98.3 10/30/17 19:30 107 29 45 10/30/17 18:00 110 18 149/93 100 Mechanical Ventilator 45 10/30/17 17:40 Mechanical Ventilator 45 10/30/17 17:40 98.0 111 28 146/91 Mechanical Ventilator 45 98.0 10/30/17 17:06 106 21 45 10/30/17 17:00 105 20 146/91 100 Mechanical Ventilator 45 10/30/17 16:00 103 22 148/93 100 Mechanical Ventilator 45 10/30/17 16:00 102 10/30/17 16:00 45 10/30/17 15:00 93 18 149/96 100 Mechanical Ventilator 45 10/30/17 14:34 97 23 45 10/30/17 14:00 97.7 91 28 150/97 Mechanical Ventilator 45 97.7 10/30/17 14:00 Mechanical Ventilator 45 10/30/17 14:00 107 18 139/72 100 Mechanical Ventilator 45 10/30/17 13:00 95 20 150/90 100 Mechanical Ventilator 45 10/30/17 12:54 103 20 45 10/30/17 12:00 98.2 91 22 144/91 100 Mechanical Ventilator 45 10/30/17 12:00 85 10/30/17 12:00 45 Intake and Output 10/30/17 10/31/17 19:00 07:00 Intake Total 55 ml 850 ml Output Total 1000 ml 0 ml Balance -945 ml 850 ml Free Water 450 ml IV Total 55 ml 100 ml Tube Feeding 300 ml Output Urine Total 0 ml 0 ml Stool Total 0 ml 0 ml Hemodialysis UF 1000 ml Laboratory Tests 10/31/17 04:00: White Blood Count 35.7*H, Red Blood Count 3.21L, Hemoglobin 9.7L, Hematocrit 28.4L, Mean Corpuscular Volume 88, Mean Corpuscular Hemoglobin 30.2, Mean Corpuscular Hemoglobin Concent 34.2, Red Cell Distribution Width 14.1, Platelet Count 325, Mean Platelet Volume 6.1L, Neutrophils (%) (Auto) , Lymphocytes (%) ( Auto) , Monocytes (%) (Auto) , Eosinophils (%) (Auto) , Basophils (%) (Auto) , Differential Total Cells Counted 100, Neutrophils % (Manual) 84H, Lymphocytes % (Manual) 7L, Monocytes % (Manual) 8, Eosinophils % (Manual) 1, Basophils % ( Manual) 0, Band Neutrophils 0, Platelet Estimate Adequate, Platelet Morphology Normal, Polychromasia 1+, Anisocytosis 1+, Sodium Level 148H, Potassium Level 3.5, Chloride Level 111H, Carbon Dioxide Level 27, Anion Gap 10, Blood Urea Nitrogen 55H, Creatinine 4.7H, Estimat Glomerular Filtration Rate 15.4, Glucose Level 92, Lactic Acid Level 1.10, Uric Acid 6.8, Calcium Level 7.6L, Phosphorus Level 5.2H, Magnesium Level 2.0, Total Bilirubin 0.6, Aspartate Amino Transf ( AST/SGOT) 81H, Alanine Aminotransferase (ALT/SGPT) 471H, Alkaline Phosphatase 121H, Troponin I 0.334H, Pro-B-Type Natriuretic Peptide 5225H, Total Protein 4.6L, Albumin 1.5L, Globulin 3.1, Albumin/Globulin Ratio 0.5L, Triglycerides Level 66, Cholesterol Level 52, LDL Cholesterol 22, HDL Cholesterol 18L, Cholesterol/HDL Ratio 2.9L, Lipase 417H, Thyroid Stimulating Hormone (TSH) 3.789H Height (Feet): 5 Height (Inches): 6.00 Weight (Pounds): 111 General Appearance: no apparent distress Cardiovascular: tachycardia Respiratory/Chest: decreased breath sounds Abdomen: distended Objective no other change YVES SINHA Oct 31, 2017 11:25
[2017-10-31] MEDS ORDERED: Tubing IV Secondary IV ONE (11:27)
[2017-10-31] MEDS ORDERED: Sterile Water Irrig 1000ml IRRIG ONE (11:27)
--- NOTE | 2017-10-31 11:47 | Pulmonolgy Critical Care Note ---
Critical Care - Asmt/Plan Problems: (1) Acute renal failure (ARF) (2) Acute respiratory failure (3) Pneumonia (4) Sepsis (5) C. difficile colitis (6) Feeding by G-tube (7) Epileptic seizure, generalized Respiratory: monitor respiratory rate, adjust FIO2, CXR Cardiac: continue to monitor HR/BP Renal: F/U I&O, keep IV fluid Infectious Disease: check cultures Endocrine: continue sliding scale insulin Hematologic: monitor H/H, transfuse if hgb<8.5 Neurologic: PRN Morphine, keep patient comfortable Affect: PRN ativan Notes Reviewed: cardio, renal Discussed with: nurses, consultants, director of casework departmentclinical assessment manager - Objective Last 24 Hour Vital Signs Date Time Temp Pulse Resp B/P (MAP) Pulse Ox O2 Delivery O2 Flow Rate FiO2 10/31/17 11:38 102 10/31/17 11:38 45 10/31/17 09:39 106 25 45 10/31/17 09:11 89 138/79 10/31/17 08:00 45 10/31/17 08:00 98.2 89 19 138/79 100 Mechanical Ventilator 45 98.2 10/31/17 08:00 89 10/31/17 07:56 96 21 45 10/31/17 05:16 94 21 45 10/31/17 04:00 98.4 93 20 149/89 100 Mechanical Ventilator 45 98.4 10/31/17 04:00 100 10/31/17 04:00 40 10/31/17 03:30 94 21 45 10/31/17 01:30 87 19 45 10/31/17 00:00 98.4 93 17 149/97 100 Mechanical Ventilator 45 98.4 10/31/17 00:00 93 10/31/17 00:00 40 10/30/17 23:17 103 25 45 10/30/17 22:16 90 147/87 10/30/17 21:30 97 22 45 10/30/17 20:10 104 10/30/17 20:00 40 10/30/17 20:00 98.3 90 19 147/87 100 Mechanical Ventilator 45 98.3 10/30/17 19:30 107 29 45 10/30/17 18:00 110 18 149/93 100 Mechanical Ventilator 45 10/30/17 17:40 Mechanical Ventilator 45 10/30/17 17:40 98.0 111 28 146/91 Mechanical Ventilator 45 98.0 10/30/17 17:06 106 21 45 10/30/17 17:00 105 20 146/91 100 Mechanical Ventilator 45 10/30/17 16:00 103 22 148/93 100 Mechanical Ventilator 45 10/30/17 16:00 102 10/30/17 16:00 45 10/30/17 15:00 93 18 149/96 100 Mechanical Ventilator 45 10/30/17 14:34 97 23 45 10/30/17 14:00 97.7 91 28 150/97 Mechanical Ventilator 45 97.7 10/30/17 14:00 Mechanical Ventilator 45 10/30/17 14:00 107 18 139/72 100 Mechanical Ventilator 45 10/30/17 13:00 95 20 150/90 100 Mechanical Ventilator 45 10/30/17 12:54 103 20 45 10/30/17 12:00 98.2 91 22 144/91 100 Mechanical Ventilator 45 10/30/17 12:00 85 10/30/17 12:00 45 Status: awake Condition: critical Neck: full ROM Lungs: clear Heart: HR/BP stable Abdomen: soft, non-tender, feeding tube Extremities: edema Decubiti: location Micro: Microbiology Date/Time Source Procedure Growth Status 10/29/17 14:50 Blood Blood Culture - Preliminary NO GROWTH AFTER 24 HOURS Resulted 10/29/17 14:45 Blood Blood Culture - Preliminary NO GROWTH AFTER 24 HOURS Resulted Critical Care - Subjective ROS Limited/Unobtainable: No Condition: critical EKG Rhythm: Sinus Rhythm FI02: 45 Vent Support Breath Rate: 18 Vent Support Mode: AC Vent Tidal Volume: 550 Sputum Amount: Scant PEEP: 10.0 PIP: 29 Tube Feeding Amount: 30 I&O: Intake and Output 10/30/17 10/31/17 19:00 07:00 Intake Total 55 ml 850 ml Output Total 1000 ml 0 ml Balance -945 ml 850 ml Free Water 450 ml IV Total 55 ml 100 ml Tube Feeding 300 ml Output Urine Total 0 ml 0 ml Stool Total 0 ml 0 ml Hemodialysis UF 1000 ml CXR: no change ET-Tube: 8.0 ET Position: 24 Labs: Laboratory Tests Test 10/31/17 04:00 White Blood Count 35.7 K/UL (4.8-10.8) *H Red Blood Count 3.21 M/UL (4.70-6.10) L Hemoglobin 9.7 G/DL (14.2-18.0) L Hematocrit 28.4 % (42.0-52.0) L Mean Corpuscular Volume 88 FL (80-99) Mean Corpuscular Hemoglobin 30.2 PG (27.0-31.0) Mean Corpuscular Hemoglobin Concent 34.2 G/DL (32.0-36.0) Red Cell Distribution Width 14.1 % (11.6-14.8) Platelet Count 325 K/UL (150-450) Mean Platelet Volume 6.1 FL (6.5-10.1) L Neutrophils (%) (Auto) % (45.0-75.0) Lymphocytes (%) (Auto) % (20.0-45.0) Monocytes (%) (Auto) % (1.0-10.0) Eosinophils (%) (Auto) % (0.0-3.0) Basophils (%) (Auto) % (0.0-2.0) Differential Total Cells Counted 100 Neutrophils % (Manual) 84 % (45-75) H Lymphocytes % (Manual) 7 % (20-45) L Monocytes % (Manual) 8 % (1-10) Eosinophils % (Manual) 1 % (0-3) Basophils % (Manual) 0 % (0-2) Band Neutrophils 0 % (0-8) Platelet Estimate Adequate Platelet Morphology Normal Polychromasia 1+ Anisocytosis 1+ Sodium Level 148 MMOL/L (136-145) H Potassium Level 3.5 MMOL/L (3.5-5.1) Chloride Level 111 MMOL/L (98-107) H Carbon Dioxide Level 27 MMOL/L (21-32) Anion Gap 10 mmol/L (5-15) Blood Urea Nitrogen 55 mg/dL (7-18) H Creatinine 4.7 MG/DL (0.55-1.30) H Estimat Glomerular Filtration Rate 15.4 mL/min (>60) Glucose Level 92 MG/DL (74-106) Lactic Acid Level 1.10 mmol/L (0.66-2.22) Uric Acid 6.8 MG/DL (2.6-7.2) Calcium Level 7.6 MG/DL (8.5-10.1) L Phosphorus Level 5.2 MG/DL (2.5-4.9) H Magnesium Level 2.0 MG/DL (1.8-2.4) Total Bilirubin 0.6 MG/DL (0.2-1.0) Aspartate Amino Transf (AST/SGOT) 81 U/L (15-37) H Alanine Aminotransferase (ALT/SGPT) 471 U/L (12-78) H Alkaline Phosphatase 121 U/L (46-116) H Troponin I 0.334 ng/mL (0.000-0.056) Pro-B-Type Natriuretic Peptide 5225 pg/mL (0-125) H Total Protein 4.6 G/DL (6.4-8.2) L Albumin 1.5 G/DL (3.4-5.0) L Globulin 3.1 g/dL Albumin/Globulin Ratio 0.5 (1.0-2.7) L Triglycerides Level 66 MG/DL (30-150) Cholesterol Level 52 MG/DL (< 200) LDL Cholesterol 22 mg/dL (<100) HDL Cholesterol 18 MG/DL (40-60) L Cholesterol/HDL Ratio 2.9 (3.3-4.4) L Lipase 417 U/L (73-393) H Thyroid Stimulating Hormone (TSH) 3.789 uiU/mL (0.358-3.740) EDDIE COLES Oct 31, 2017 11:46
[2017-10-31 12:18] VITALS: BP 133/82
--- NOTE | 2017-10-31 13:26 | Infectious Diseases Prog Note ---
Assessment/Plan Assessment/Plan Assessment/Plan C Diff +ve Fever, SP Leukocytosis, increased -CXR: 10/30 : Slightly increased hazy opacity left lung base and obscuration of left hemidiaphragm, may reflect increased infiltrates and/or pleural fluid E.coli UTI w/ bacteremia ; s/p Rx -REnal US: Limited exam. No definite hydronephrosis. Empty bladder, containing a Cervantes catheter. Suspicion for Flu despite rapid test (+URI symptoms, sick contacts); s/p Rx ? Pneum -CXR 10/26: There is right basilar and right perihilar atelectasis and possibly minimal consolidation. Left lung and bilateral pleural spaces remain clear. -Influenza neg Acute hypoxic resp failure- intubated (10/20) 12/18 KUB : Distended small bowel. Ileus versus obstruction. SP Trach 10/23 SP cardiac arrest 10/26 SP hemorrhagic shock (drop Hgb 10.8 to 5)- 10/12 GIB- transaminitis due to shock improving JULIA Lactic acidosis, resolved UGI bleed SP EGD 10/18 and 10/26 Path: H Pylori Neg CVA with hemiplegia HTN cataract dysphagia Hx of fall CAD/WI CVA/TIA dementia seizure disorder Plan: -Continue Flagyl and oral Vanco d# 5 /14 10/30 SP Meropenem d# 5 - 10/29 SP IV Vanco # 10 - 10/26 SP Zosyn #6 - 10/21 SP Ceftriaxone 2 g qd d# 11 - 10/17 SP empiric Tamiflu #6/5 -2/5 SP IV Vancomcyin #5, Meropenm #3 -2/3 SP Cefepime #3 -Monitor CBC/BMP, temperatures; - monitor Bl Cx -aspiration precautions - vent Support - Subjective Allergies: Coded Allergies: NO KNOWN ALLERGIES (Unverified Allergy, Unknown, 09/03/15) Subjective NON VERBAL TRANSFERRED OUT OF ICU Objective Vital Signs Last 24 Hour Vital Signs Date Time Temp Pulse Resp B/P (MAP) Pulse Ox O2 Delivery O2 Flow Rate FiO2 10/31/17 13:12 106 25 45 10/31/17 12:18 98.4 88 20 133/82 100 Mechanical Ventilator 45 98.4 10/31/17 11:46 94 21 45 10/31/17 11:38 102 10/31/17 11:38 45 10/31/17 09:39 106 25 45 10/31/17 09:11 89 138/79 10/31/17 08:00 45 10/31/17 08:00 98.2 89 19 138/79 100 Mechanical Ventilator 45 98.2 10/31/17 08:00 89 10/31/17 07:56 96 21 45 10/31/17 05:16 94 21 45 10/31/17 04:00 98.4 93 20 149/89 100 Mechanical Ventilator 45 98.4 10/31/17 04:00 100 10/31/17 04:00 40 10/31/17 03:30 94 21 45 10/31/17 01:30 87 19 45 10/31/17 00:00 98.4 93 17 149/97 100 Mechanical Ventilator 45 98.4 10/31/17 00:00 93 10/31/17 00:00 40 10/30/17 23:17 103 25 45 10/30/17 22:16 90 147/87 10/30/17 21:30 97 22 45 10/30/17 20:10 104 10/30/17 20:00 40 10/30/17 20:00 98.3 90 19 147/87 100 Mechanical Ventilator 45 98.3 10/30/17 19:30 107 29 45 10/30/17 18:00 110 18 149/93 100 Mechanical Ventilator 45 10/30/17 17:40 Mechanical Ventilator 45 10/30/17 17:40 98.0 111 28 146/91 Mechanical Ventilator 45 98.0 10/30/17 17:06 106 21 45 10/30/17 17:00 105 20 146/91 100 Mechanical Ventilator 45 10/30/17 16:00 103 22 148/93 100 Mechanical Ventilator 45 10/30/17 16:00 102 10/30/17 16:00 45 18 15:00 93 18 149/96 100 Mechanical Ventilator 45 10/30/17 14:34 97 23 45 10/30/17 14:00 97.7 91 28 150/97 Mechanical Ventilator 45 97.7 10/30/17 14:00 Mechanical Ventilator 45 18 14:00 107 18 139/72 100 Mechanical Ventilator 45 Height (Feet): 5 Height (Inches): 6.00 Weight (Pounds): 111 HEENT: anicteric Respiratory/Chest: normal breath sounds Cardiovascular: regular rhythm Abdomen: no organomegaly Microbiology Date/Time Source Procedure Growth Status 10/29/17 14:50 Blood Blood Culture - Preliminary NO GROWTH AFTER 24 HOURS Resulted 10/29/17 14:45 Blood Blood Culture - Preliminary NO GROWTH AFTER 24 HOURS Resulted Laboratory Tests Test 10/31/17 04:00 White Blood Count 35.7 K/UL (4.8-10.8) *H Red Blood Count 3.21 M/UL (4.70-6.10) L Hemoglobin 9.7 G/DL (14.2-18.0) L Hematocrit 28.4 % (42.0-52.0) L Mean Corpuscular Volume 88 FL (80-99) Mean Corpuscular Hemoglobin 30.2 PG (27.0-31.0) Mean Corpuscular Hemoglobin Concent 34.2 G/DL (32.0-36.0) Red Cell Distribution Width 14.1 % (11.6-14.8) Platelet Count 325 K/UL (150-450) Mean Platelet Volume 6.1 FL (6.5-10.1) L Neutrophils (%) (Auto) % (45.0-75.0) Lymphocytes (%) (Auto) % (20.0-45.0) Monocytes (%) (Auto) % (1.0-10.0) Eosinophils (%) (Auto) % (0.0-3.0) Basophils (%) (Auto) % (0.0-2.0) Differential Total Cells Counted 100 Neutrophils % (Manual) 84 % (45-75) H Lymphocytes % (Manual) 7 % (20-45) L Monocytes % (Manual) 8 % (1-10) Eosinophils % (Manual) 1 % (0-3) Basophils % (Manual) 0 % (0-2) Band Neutrophils 0 % (0-8) Platelet Estimate Adequate Platelet Morphology Normal Polychromasia 1+ Anisocytosis 1+ Sodium Level 148 MMOL/L (136-145) H Potassium Level 3.5 MMOL/L (3.5-5.1) Chloride Level 111 MMOL/L (98-107) H Carbon Dioxide Level 27 MMOL/L (21-32) Anion Gap 10 mmol/L (5-15) Blood Urea Nitrogen 55 mg/dL (7-18) H Creatinine 4.7 MG/DL (0.55-1.30) H Estimat Glomerular Filtration Rate 15.4 mL/min (>60) Glucose Level 92 MG/DL (74-106) Lactic Acid Level 1.10 mmol/L (0.66-2.22) Uric Acid 6.8 MG/DL (2.6-7.2) Calcium Level 7.6 MG/DL (8.5-10.1) L Phosphorus Level 5.2 MG/DL (2.5-4.9) H Magnesium Level 2.0 MG/DL (1.8-2.4) Total Bilirubin 0.6 MG/DL (0.2-1.0) Aspartate Amino Transf (AST/SGOT) 81 U/L (15-37) H Alanine Aminotransferase (ALT/SGPT) 471 U/L (12-78) H Alkaline Phosphatase 121 U/L (46-116) H Troponin I 0.334 ng/mL (0.000-0.056) Pro-B-Type Natriuretic Peptide 5225 pg/mL (0-125) H Total Protein 4.6 G/DL (6.4-8.2) L Albumin 1.5 G/DL (3.4-5.0) L Globulin 3.1 g/dL Albumin/Globulin Ratio 0.5 (1.0-2.7) L Triglycerides Level 66 MG/DL (30-150) Cholesterol Level 52 MG/DL (< 200) LDL Cholesterol 22 mg/dL (<100) HDL Cholesterol 18 MG/DL (40-60) L Cholesterol/HDL Ratio 2.9 (3.3-4.4) L Lipase 417 U/L (73-393) H Thyroid Stimulating Hormone (TSH) 3.789 uiU/mL (0.358-3.740) Current Medications Medications (Trade) Dose Ordered Sig/Olvin Route PRN Reason Start Time Stop Time Status Last Admin Dose Admin Acetaminophen (Tylenol) 650 mg Q4H PRN RECTAL Mild Pain (Pain Scale 1-3) 10/30/17 21:00 11/20/17 20:59 Albuterol/ Ipratropium (Albuterol/ Ipratropium) 3 ml Q4H PRN HHN Shortness of Breath 10/30/17 21:00 11/03/17 20:59 Chlorhexidine Gluconate (Pamela-Hex 2%) 1 applic DAILY@1999 TOPIC 10/31/17 22:00 11/23/17 21:59 10/30/17 22:16 Famotidine (Pepcid I.v.) 20 mg Q24HRS IVP 10/30/17 21:30 11/29/17 21:29 10/30/17 22:17 Metoclopramide HCl (Reglan) 5 mg Q6H PRN GT Irrectractable Nausea/Vomiting 10/30/17 21:00 11/29/17 20:59 Metoprolol Tartrate (Lopressor) 25 mg Q12HR GT 10/30/17 21:30 11/29/17 21:29 10/31/17 09:11 Metronidazole 100 ml @ 100 mls/hr Q8HR IV 10/30/17 22:00 11/03/17 09:59 10/31/17 06:00 Morphine Sulfate (Morphine Sulfate) 2 mg Q2H PRN IVP For Severe Pain 10/30/17 21:00 11/03/17 08:59 Nitroglycerin (Ntg) 0.4 mg Q5MIN X 3 DOSES PRN SL Prn Chest Pain 10/30/17 20:45 11/14/17 17:09 Ondansetron HCl (Zofran) 4 mg Q6H PRN IVP Nausea & Vomiting 10/30/17 21:00 11/29/17 20:59 Vancomycin HCl (Vanco rx to dose) 1 ea DAILYPRN PRN MISC Per rx protocol 10/30/17 21:00 11/29/17 20:59 Vancomycin HCl (Vancomycin) 125 mg FOUR TIMES A DAY ORAL 10/30/17 21:30 11/03/17 21:29 10/31/17 09:17 FAUSTINO AGARWAL M.D. Oct 31, 2017 13:26
[2017-10-31 16:03] VITALS: BP 130/88
--- NOTE | 2017-10-31 19:57 | Cardiology Progress Note ---
Assessment/Plan Assessment/Plan 1. Cardiopulmonary arrest on three separate occasions. 2. Massive gastrointestinal bleed. 3. Encephalopathy. 4. Abnormal liver function tests, likely shock liver. 5. Acute renal failure. 6. Anemia. 7. NSTEMI type2 related to cardiopulmonary resuscitation and renal insufficiency. 8. Chronic respiratory failure. 9. History of cerebrovascular accident. 10. c diff hgb stable now trop down trending echo showed lv function to be adequate the rv was little enlarged lft down trending wbc is sig elevated likely due to c diff empiric abx tele reviewed Subjective ROS Limited/Unobtainable: Yes Objective Last 24 Hour Vital Signs Date Time Temp Pulse Resp B/P (MAP) Pulse Ox O2 Delivery O2 Flow Rate FiO2 10/31/17 19:17 116 22 45 10/31/17 16:49 94 21 45 10/31/17 16:03 98.1 93 20 130/88 100 Mechanical Ventilator 45 98.1 10/31/17 16:02 98 10/31/17 16:02 45 10/31/17 15:27 92 19 45 10/31/17 13:12 106 25 45 10/31/17 12:18 98.4 88 20 133/82 100 Mechanical Ventilator 45 98.4 10/31/17 11:46 94 21 45 10/31/17 11:38 102 10/31/17 11:38 45 10/31/17 09:39 106 25 45 10/31/17 09:11 89 138/79 10/31/17 08:00 45 10/31/17 08:00 98.2 89 19 138/79 100 Mechanical Ventilator 45 98.2 10/31/17 08:00 89 10/31/17 07:56 96 21 45 10/31/17 05:16 94 21 45 10/31/17 04:00 98.4 93 20 149/89 100 Mechanical Ventilator 45 98.4 10/31/17 04:00 100 10/31/17 04:00 40 10/31/17 03:30 94 21 45 10/31/17 01:30 87 19 45 10/31/17 00:00 98.4 93 17 149/97 100 Mechanical Ventilator 45 98.4 10/31/17 00:00 93 10/31/17 00:00 40 10/30/17 23:17 103 25 45 10/30/17 22:16 90 147/87 10/30/17 21:30 97 22 45 10/30/17 20:10 104 10/30/17 20:00 40 10/30/17 20:00 98.3 90 19 147/87 100 Mechanical Ventilator 45 98.3 General Appearance: no apparent distress, on vent, patient on isolation Neck: supple Cardiovascular: normal rate, regular rhythm Respiratory/Chest: lungs clear - ant Abdomen: normal bowel sounds, non tender, soft Extremities: moderate edema Intake and Output 10/30/17 10/31/17 19:00 07:00 Intake Total 55 ml 850 ml Output Total 1000 ml 0 ml Balance -945 ml 850 ml Free Water 450 ml IV Total 55 ml 100 ml Tube Feeding 300 ml Output Urine Total 0 ml 0 ml Stool Total 0 ml 0 ml Hemodialysis UF 1000 ml Laboratory Tests Test 10/31/17 04:00 White Blood Count 35.7 K/UL (4.8-10.8) *H Red Blood Count 3.21 M/UL (4.70-6.10) L Hemoglobin 9.7 G/DL (14.2-18.0) L Hematocrit 28.4 % (42.0-52.0) L Mean Corpuscular Volume 88 FL (80-99) Mean Corpuscular Hemoglobin 30.2 PG (27.0-31.0) Mean Corpuscular Hemoglobin Concent 34.2 G/DL (32.0-36.0) Red Cell Distribution Width 14.1 % (11.6-14.8) Platelet Count 325 K/UL (150-450) Mean Platelet Volume 6.1 FL (6.5-10.1) L Neutrophils (%) (Auto) % (45.0-75.0) Lymphocytes (%) (Auto) % (20.0-45.0) Monocytes (%) (Auto) % (1.0-10.0) Eosinophils (%) (Auto) % (0.0-3.0) Basophils (%) (Auto) % (0.0-2.0) Differential Total Cells Counted 100 Neutrophils % (Manual) 84 % (45-75) H Lymphocytes % (Manual) 7 % (20-45) L Monocytes % (Manual) 8 % (1-10) Eosinophils % (Manual) 1 % (0-3) Basophils % (Manual) 0 % (0-2) Band Neutrophils 0 % (0-8) Platelet Estimate Adequate Platelet Morphology Normal Polychromasia 1+ Anisocytosis 1+ Sodium Level 148 MMOL/L (136-145) H Potassium Level 3.5 MMOL/L (3.5-5.1) Chloride Level 111 MMOL/L (98-107) H Carbon Dioxide Level 27 MMOL/L (21-32) Anion Gap 10 mmol/L (5-15) Blood Urea Nitrogen 55 mg/dL (7-18) H Creatinine 4.7 MG/DL (0.55-1.30) H Estimat Glomerular Filtration Rate 15.4 mL/min (>60) Glucose Level 92 MG/DL (74-106) Lactic Acid Level 1.10 mmol/L (0.66-2.22) Uric Acid 6.8 MG/DL (2.6-7.2) Calcium Level 7.6 MG/DL (8.5-10.1) L Phosphorus Level 5.2 MG/DL (2.5-4.9) H Magnesium Level 2.0 MG/DL (1.8-2.4) Total Bilirubin 0.6 MG/DL (0.2-1.0) Aspartate Amino Transf (AST/SGOT) 81 U/L (15-37) H Alanine Aminotransferase (ALT/SGPT) 471 U/L (12-78) H Alkaline Phosphatase 121 U/L (46-116) H Troponin I 0.334 ng/mL (0.000-0.056) Pro-B-Type Natriuretic Peptide 5225 pg/mL (0-125) H Total Protein 4.6 G/DL (6.4-8.2) L Albumin 1.5 G/DL (3.4-5.0) L Globulin 3.1 g/dL Albumin/Globulin Ratio 0.5 (1.0-2.7) L Triglycerides Level 66 MG/DL (30-150) Cholesterol Level 52 MG/DL (< 200) LDL Cholesterol 22 mg/dL (<100) HDL Cholesterol 18 MG/DL (40-60) L Cholesterol/HDL Ratio 2.9 (3.3-4.4) L Lipase 417 U/L (73-393) H Thyroid Stimulating Hormone (TSH) 3.789 uiU/mL (0.358-3.740) Microbiology Date/Time Source Procedure Growth Status 10/29/17 14:50 Blood Blood Culture - Preliminary NO GROWTH AFTER 24 HOURS Resulted 10/29/17 14:45 Blood Blood Culture - Preliminary NO GROWTH AFTER 24 HOURS Resulted CHRISTEN LOVE Oct 31, 2017 19:57
[2017-10-31 20:00] VITALS: BP 129/75
[2017-10-31] MEDS: Dyna-Hex 2% Top Sol 2oz TOPIC SCH (20:29)
[2017-11-01] VITALS: BP 140/78
[2017-11-01 04:00] VITALS: BP 148/89
[2017-11-01 06:02] LABS: HEMATOCRIT 27.6 % (42.0-52.0); HEMOGLOBIN 9.3 G/DL (14.2-18.0); MEAN CORPUSCULAR VOLUME 89 FL (80-99); PLATELET COUNT 357 K/UL (150-450); RED BLOOD COUNT 3.11 M/UL (4.70-6.10); RED CELL DISTRIBUTION WIDTH 14.5 % (11.6-14.8)
[2017-11-01 06:16] LABS: WHITE BLOOD COUNT 33.9 K/UL (4.8-10.8)
[2017-11-01 06:19] LABS: ALANINE AMINOTRANSFERASE 276 U/L (12-78); ALBUMIN 1.5 G/DL (3.4-5.0); ALBUMIN/GLOBULIN RATIO 0.5 (1.0-2.7); ALKALINE PHOSPHATASE 128 U/L (46-116); ANION GAP 11 mmol/L (5-15); ASPARTATE AMINO TRANSFERASE 45 U/L (15-37); BILIRUBIN,TOTAL 0.5 MG/DL (0.2-1.0); BLOOD UREA NITROGEN 76 mg/dL (7-18); CALCIUM 7.6 MG/DL (8.5-10.1); CARBON DIOXIDE 26 MMOL/L (21-32); CHLORIDE 111 MMOL/L (98-107); PHOSPHORUS 6.1 MG/DL (2.5-4.9); POTASSIUM 3.9 MMOL/L (3.5-5.1); SODIUM 148 MMOL/L (136-145)
[2017-11-01 07:48] VITALS: BP 133/83
[2017-11-01] MEDS: Vancomycin oral 125mg/2.5ml ORAL SCH ×4 (08:17→20:31)
[2017-11-01] MEDS: Metoprolol 25mg tab GT SCH ×2 (08:17→20:31)
--- NOTE | 2017-11-01 10:52 | GI Progress Note ---
Assessment/Plan Problems: (1) Dysphagia ICD Codes: R13.10 - Dysphagia, unspecified SNOMED: 10661703, 073957646 (2) Dementia ICD Codes: F03.90 - Unspecified dementia without behavioral disturbance SNOMED: 15316533 (3) PEG (percutaneous endoscopic gastrostomy) adjustment/replacement/removal ICD Codes: Z43.1 - Encounter for attention to gastrostomy SNOMED: 455652994, 948414058 (4) CVA, old, hemiparesis ICD Codes: I69.359 - Hemiplegia and hemiparesis following cerebral infarction affecting unspecified side SNOMED: 28486937, 82122588, [id number] Status: unchanged Status Narrative Discussed with Dr. Campos. Assessment/Plan Distended small bowel. Ileus versus obstruction. Rectal fecal impaction. >> resolved, repeat KUB shows no acute process. s/p EGD and hemostasis on Sunday now with ? recurrent bleed, transfuse 2 units >> stable H&H past few days cdiff positive >> dc ppi gtt, H2B BID GTFs today per RD to goal prn transfusions abx poor prognosis plan repeat EGD if needed fu labs Subjective Subjective limited Objective Last 24 Hour Vital Signs Date Time Temp Pulse Resp B/P (MAP) Pulse Ox O2 Delivery O2 Flow Rate FiO2 11/01/17 08:50 95 20 40 11/01/17 08:17 92 133/83 11/01/17 08:00 45 11/01/17 07:48 98.2 92 28 133/83 97 Mechanical Ventilator 40 98.2 11/01/17 07:23 86 11/01/17 07:05 92 23 40 11/01/17 05:20 88 18 45 11/01/17 04:00 98.2 79 19 148/89 100 Mechanical Ventilator 45 98.2 11/01/17 04:00 78 11/01/17 04:00 45 11/01/17 03:26 82 20 45 11/01/17 01:28 79 19 45 11/01/17 00:00 98.2 99 19 140/78 100 Mechanical Ventilator 45 98.2 11/01/17 00:00 103 10/31/17 22:55 119 25 45 10/31/17 21:24 104 25 45 10/31/17 20:30 110 125/88 2/21/18 20:00 98.1 100 20 129/75 100 Mechanical Ventilator 45 98.1 10/31/17 20:00 45 10/31/17 19:17 116 22 45 10/31/17 19:06 93 10/31/17 16:49 94 21 45 10/31/17 16:03 98.1 93 20 130/88 100 Mechanical Ventilator 45 98.1 10/31/17 16:02 98 10/31/17 16:02 45 10/31/17 15:27 92 19 45 10/31/17 13:12 106 25 45 10/31/17 12:18 98.4 88 20 133/82 100 Mechanical Ventilator 45 98.4 10/31/17 11:46 94 21 45 10/31/17 11:38 102 10/31/17 11:38 45 Intake and Output 10/31/17 11/01/17 19:00 07:00 Intake Total 560 ml 790 ml Output Total 100 ml 0 ml Balance 460 ml 790 ml Free Water 200 ml 200 ml IV Total 200 ml Tube Feeding 360 ml 330 ml Other 60 ml Output Urine Total 0 ml Stool Total 100 ml # Bowel Movements 20 Laboratory Tests Test 11/01/17 04:00 White Blood Count 33.9 K/UL (4.8-10.8) *H Red Blood Count 3.11 M/UL (4.70-6.10) L Hemoglobin 9.3 G/DL (14.2-18.0) L Hematocrit 27.6 % (42.0-52.0) L Mean Corpuscular Volume 89 FL (80-99) Mean Corpuscular Hemoglobin 30.1 PG (27.0-31.0) Mean Corpuscular Hemoglobin Concent 33.8 G/DL (32.0-36.0) Red Cell Distribution Width 14.5 % (11.6-14.8) Platelet Count 357 K/UL (150-450) Mean Platelet Volume 6.1 FL (6.5-10.1) L Neutrophils (%) (Auto) % (45.0-75.0) Lymphocytes (%) (Auto) % (20.0-45.0) Monocytes (%) (Auto) % (1.0-10.0) Eosinophils (%) (Auto) % (0.0-3.0) Basophils (%) (Auto) % (0.0-2.0) Differential Total Cells Counted 100 Neutrophils % (Manual) 92 % (45-75) H Lymphocytes % (Manual) 2 % (20-45) L Monocytes % (Manual) 6 % (1-10) Eosinophils % (Manual) 0 % (0-3) Basophils % (Manual) 0 % (0-2) Band Neutrophils 0 % (0-8) Platelet Estimate Adequate Platelet Morphology Normal Hypochromasia 2+ Spherocytes 1+ Sodium Level 148 MMOL/L (136-145) H Potassium Level 3.9 MMOL/L (3.5-5.1) Chloride Level 111 MMOL/L (98-107) H Carbon Dioxide Level 26 MMOL/L (21-32) Anion Gap 11 mmol/L (5-15) Blood Urea Nitrogen 76 mg/dL (7-18) H Creatinine 6.0 MG/DL (0.55-1.30) H Estimat Glomerular Filtration Rate 11.6 mL/min (>60) Glucose Level 108 MG/DL (74-106) H Uric Acid 8.4 MG/DL (2.6-7.2) H Calcium Level 7.6 MG/DL (8.5-10.1) L Phosphorus Level 6.1 MG/DL (2.5-4.9) H Magnesium Level 2.2 MG/DL (1.8-2.4) Total Bilirubin 0.5 MG/DL (0.2-1.0) Aspartate Amino Transf (AST/SGOT) 45 U/L (15-37) H Alanine Aminotransferase (ALT/SGPT) 276 U/L (12-78) H Alkaline Phosphatase 128 U/L (46-116) H C-Reactive Protein, Quantitative 13.2 mg/dL (0.00-0.90) H Pro-B-Type Natriuretic Peptide 4029 pg/mL (0-125) H Total Protein 4.6 G/DL (6.4-8.2) L Albumin 1.5 G/DL (3.4-5.0) L Globulin 3.1 g/dL Albumin/Globulin Ratio 0.5 (1.0-2.7) L Height (Feet): 5 Height (Inches): 6.00 Weight (Pounds): 244 General Appearance: alert Cardiovascular: normal rate Respiratory/Chest: other - trach to vent Abdominal Exam: soft, GT site - c/d/i Laura Lucas N.P. Nov 01, 2017 10:52
--- NOTE | 2017-11-01 11:13 | Nephrology Progress Note ---
Assessment/Plan Problem List: (1) Acute renal failure (ARF) (2) Respiratory failure (3) Shock liver Assessment JULIA , due to Shock , Hemorrhagic / Septic / C dif colitis Off Pressors- Shock liver resolving High Troponin: TN Bradycardic - Vfib cardiac arrest 10/26 likely 2ry to hemorrhagic shock (drop Hgb 10.8 to 5) - GIB- Fever, ongoing Leukocytosis, worsening after code E.coli UTI w/ bacteremia Acute hypoxic resp failure- s/p Trach . Plan Plan: BP stablized DC Protonix drip start GT feeding HD trial as needed- last one 10/30 next today on C dif treatment protocol monitor urine out put and Renal parameters discussed with RN Subjective ROS Limited/Unobtainable: Yes Objective Objective Last 24 Hour Vital Signs Date Time Temp Pulse Resp B/P (MAP) Pulse Ox O2 Delivery O2 Flow Rate FiO2 11/01/17 11:06 100 22 35 11/01/17 08:50 95 20 40 11/01/17 08:17 92 133/83 11/01/17 08:00 45 11/01/17 07:48 98.2 92 28 133/83 97 Mechanical Ventilator 40 98.2 11/01/17 07:23 86 11/01/17 07:05 92 23 40 11/01/17 05:20 88 18 45 11/01/17 04:00 98.2 79 19 148/89 100 Mechanical Ventilator 45 98.2 11/01/17 04:00 78 11/01/17 04:00 45 11/01/17 03:26 82 20 45 11/01/17 01:28 79 19 45 11/01/17 00:00 98.2 99 19 140/78 100 Mechanical Ventilator 45 98.2 11/01/17 00:00 103 10/31/17 22:55 119 25 45 10/31/17 21:24 104 25 45 10/31/17 20:30 110 125/88 10/31/17 20:00 98.1 100 20 129/75 100 Mechanical Ventilator 45 98.1 10/31/17 20:00 45 10/31/17 19:17 116 22 45 10/31/17 19:06 93 10/31/17 16:49 94 21 45 10/31/17 16:03 98.1 93 20 130/88 100 Mechanical Ventilator 45 98.1 10/31/17 16:02 98 10/31/17 16:02 45 10/31/17 15:27 92 19 45 10/31/17 13:12 106 25 45 10/31/17 12:18 98.4 88 20 133/82 100 Mechanical Ventilator 45 98.4 10/31/17 11:46 94 21 45 10/31/17 11:38 102 10/31/17 11:38 45 Intake and Output 10/31/17 11/01/17 19:00 07:00 Intake Total 560 ml 790 ml Output Total 100 ml 0 ml Balance 460 ml 790 ml Free Water 200 ml 200 ml IV Total 200 ml Tube Feeding 360 ml 330 ml Other 60 ml Output Urine Total 0 ml Stool Total 100 ml # Bowel Movements 20 Laboratory Tests 11/01/17 04:00: White Blood Count 33.9*H, Red Blood Count 3.11L, Hemoglobin 9.3L, Hematocrit 27.6L, Mean Corpuscular Volume 89, Mean Corpuscular Hemoglobin 30.1, Mean Corpuscular Hemoglobin Concent 33.8, Red Cell Distribution Width 14.5, Platelet Count 357, Mean Platelet Volume 6.1L, Neutrophils (%) (Auto) , Lymphocytes (%) ( Auto) , Monocytes (%) (Auto) , Eosinophils (%) (Auto) , Basophils (%) (Auto) , Differential Total Cells Counted 100, Neutrophils % (Manual) 92H, Lymphocytes % (Manual) 2L, Monocytes % (Manual) 6, Eosinophils % (Manual) 0, Basophils % ( Manual) 0, Band Neutrophils 0, Platelet Estimate Adequate, Platelet Morphology Normal, Hypochromasia 2+, Spherocytes 1+, Sodium Level 148H, Potassium Level 3.9 , Chloride Level 111H, Carbon Dioxide Level 26, Anion Gap 11, Blood Urea Nitrogen 76H, Creatinine 6.0H, Estimat Glomerular Filtration Rate 11.6, Glucose Level 108H, Uric Acid 8.4H, Calcium Level 7.6L, Phosphorus Level 6.1H, Magnesium Level 2.2, Total Bilirubin 0.5, Aspartate Amino Transf (AST/SGOT) 45H , Alanine Aminotransferase (ALT/SGPT) 276H, Alkaline Phosphatase 128H, C- Reactive Protein, Quantitative 13.2H, Pro-B-Type Natriuretic Peptide 4029H, Total Protein 4.6L, Albumin 1.5L, Globulin 3.1, Albumin/Globulin Ratio 0.5L Height (Feet): 5 Height (Inches): 6.00 Weight (Pounds): 244 General Appearance: no apparent distress Cardiovascular: tachycardia Respiratory/Chest: decreased breath sounds Abdomen: distended Objective no other change YVES SINHA Nov 01, 2017 11:13
--- NOTE | 2017-11-01 11:37 | Pulmonolgy Critical Care Note ---
Critical Care - Asmt/Plan Problems: (1) Acute renal failure (ARF) (2) Acute respiratory failure (3) Pneumonia (4) Sepsis (5) C. 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 Discussed with: nurses, consultants, case investigatormanager product - Objective Last 24 Hour Vital Signs Date Time Temp Pulse Resp B/P (MAP) Pulse Ox O2 Delivery O2 Flow Rate FiO2 11/01/17 11:06 100 22 35 11/01/17 08:50 95 20 40 11/01/17 08:17 92 133/83 11/01/17 08:00 45 11/01/17 07:48 98.2 92 28 133/83 97 Mechanical Ventilator 40 98.2 11/01/17 07:23 86 11/01/17 07:05 92 23 40 11/01/17 05:20 88 18 45 11/01/17 04:00 98.2 79 19 148/89 100 Mechanical Ventilator 45 98.2 11/01/17 04:00 78 11/01/17 04:00 45 11/01/17 03:26 82 20 45 11/01/17 01:28 79 19 45 11/01/17 00:00 98.2 99 19 140/78 100 Mechanical Ventilator 45 98.2 11/01/17 00:00 103 10/31/17 22:55 119 25 45 10/31/17 21:24 104 25 45 10/31/17 20:30 110 125/88 10/31/17 20:00 98.1 100 20 129/75 100 Mechanical Ventilator 45 98.1 10/31/17 20:00 45 10/31/17 19:17 116 22 45 10/31/17 19:06 93 10/31/17 16:49 94 21 45 10/31/17 16:03 98.1 93 20 130/88 100 Mechanical Ventilator 45 98.1 10/31/17 16:02 98 10/31/17 16:02 45 10/31/17 15:27 92 19 45 10/31/17 13:12 106 25 45 10/31/17 12:18 98.4 88 20 133/82 100 Mechanical Ventilator 45 98.4 10/31/17 11:46 94 21 45 10/31/17 11:38 102 10/31/17 11:38 45 Status: awake Condition: critical Neck: full ROM Heart: HR/BP unstable, regular Abdomen: soft, active bowel sounds Extremities: no C/C/E, edema Decubiti: stage Micro: Microbiology Date/Time Source Procedure Growth Status 10/29/17 14:50 Blood Blood Culture - Preliminary NO GROWTH AFTER 48 HOURS Resulted 10/29/17 14:45 Blood Blood Culture - Preliminary NO GROWTH AFTER 48 HOURS Resulted Critical Care - Subjective ROS Limited/Unobtainable: No Condition: critical EKG Rhythm: Sinus Rhythm FI02: 35 Vent Support Breath Rate: 18 Vent Support Mode: AC Vent Tidal Volume: 550 Sputum Amount: Moderate PEEP: 10.0 PIP: 28 Tube Feeding Amount: 30 I&O: Intake and Output 10/31/17 11/01/17 19:00 07:00 Intake Total 560 ml 790 ml Output Total 100 ml 0 ml Balance 460 ml 790 ml Free Water 200 ml 200 ml IV Total 200 ml Tube Feeding 360 ml 330 ml Other 60 ml Output Urine Total 0 ml Stool Total 100 ml # Bowel Movements 20 CXR: no change ET-Tube: 8.0 ET Position: 24 Labs: Laboratory Tests Test 11/01/17 04:00 White Blood Count 33.9 K/UL (4.8-10.8) *H Red Blood Count 3.11 M/UL (4.70-6.10) L Hemoglobin 9.3 G/DL (14.2-18.0) L Hematocrit 27.6 % (42.0-52.0) L Mean Corpuscular Volume 89 FL (80-99) Mean Corpuscular Hemoglobin 30.1 PG (27.0-31.0) Mean Corpuscular Hemoglobin Concent 33.8 G/DL (32.0-36.0) Red Cell Distribution Width 14.5 % (11.6-14.8) Platelet Count 357 K/UL (150-450) Mean Platelet Volume 6.1 FL (6.5-10.1) L Neutrophils (%) (Auto) % (45.0-75.0) Lymphocytes (%) (Auto) % (20.0-45.0) Monocytes (%) (Auto) % (1.0-10.0) Eosinophils (%) (Auto) % (0.0-3.0) Basophils (%) (Auto) % (0.0-2.0) Differential Total Cells Counted 100 Neutrophils % (Manual) 92 % (45-75) H Lymphocytes % (Manual) 2 % (20-45) L Monocytes % (Manual) 6 % (1-10) Eosinophils % (Manual) 0 % (0-3) Basophils % (Manual) 0 % (0-2) Band Neutrophils 0 % (0-8) Platelet Estimate Adequate Platelet Morphology Normal Hypochromasia 2+ Spherocytes 1+ Sodium Level 148 MMOL/L (136-145) H Potassium Level 3.9 MMOL/L (3.5-5.1) Chloride Level 111 MMOL/L (98-107) H Carbon Dioxide Level 26 MMOL/L (21-32) Anion Gap 11 mmol/L (5-15) Blood Urea Nitrogen 76 mg/dL (7-18) H Creatinine 6.0 MG/DL (0.55-1.30) H Estimat Glomerular Filtration Rate 11.6 mL/min (>60) Glucose Level 108 MG/DL (74-106) H Uric Acid 8.4 MG/DL (2.6-7.2) H Calcium Level 7.6 MG/DL (8.5-10.1) L Phosphorus Level 6.1 MG/DL (2.5-4.9) H Magnesium Level 2.2 MG/DL (1.8-2.4) Total Bilirubin 0.5 MG/DL (0.2-1.0) Aspartate Amino Transf (AST/SGOT) 45 U/L (15-37) H Alanine Aminotransferase (ALT/SGPT) 276 U/L (12-78) H Alkaline Phosphatase 128 U/L (46-116) H C-Reactive Protein, Quantitative 13.2 mg/dL (0.00-0.90) H Pro-B-Type Natriuretic Peptide 4029 pg/mL (0-125) H Total Protein 4.6 G/DL (6.4-8.2) L Albumin 1.5 G/DL (3.4-5.0) L Globulin 3.1 g/dL Albumin/Globulin Ratio 0.5 (1.0-2.7) L EDDIE COLES Nov 01, 2017 11:37
[2017-11-01 12:00] VITALS: BP 134/75
--- NOTE | 2017-11-01 12:00 | Infectious Diseases Prog Note ---
Assessment/Plan Assessment/Plan Assessment/Plan C Diff +ve Fever, SP Leukocytosis, improving -CXR: 10/30 : Slightly increased hazy opacity left lung base and obscuration of left hemidiaphragm, may reflect increased infiltrates and/or pleural fluid E.coli UTI w/ bacteremia ; s/p Rx -REnal US: Limited exam. No definite hydronephrosis. Empty bladder, containing a Cervantes catheter. Suspicion for Flu despite rapid test (+URI symptoms, sick contacts); s/p Rx ? Pneum -CXR 10/26: There is right basilar and right perihilar atelectasis and possibly minimal consolidation. Left lung and bilateral pleural spaces remain clear. -Influenza neg Acute hypoxic resp failure- intubated (10/20) 12/18 KUB : Distended small bowel. Ileus versus obstruction. SP Trach 10/23 SP cardiac arrest 10/26 SP hemorrhagic shock (drop Hgb 10.8 to 5)- 10/12 GIB- transaminitis due to shock improving JULIA Lactic acidosis, resolved UGI bleed SP EGD 10/18 and 10/26 Path: H Pylori Neg CVA with hemiplegia HTN cataract dysphagia Hx of fall CAD/UT CVA/TIA dementia seizure disorder Plan: -Continue Flagyl and oral Vanco d# 6 /14 10/30 SP Meropenem d# 5 - 10/29 SP IV Vanco # 10 - 10/26 SP Zosyn #6 - 10/21 SP Ceftriaxone 2 g qd d# 11 - 10/17 SP empiric Tamiflu #6/5 -2/5 SP IV Vancomcyin #5, Meropenm #3 -2/3 SP Cefepime #3 -Monitor CBC/BMP, temperatures; - monitor Bl Cx -aspiration precautions - vent Support - Subjective Constitutional: Denies: no symptoms, fever, chills, fatigue, anorexia, drenching sweats, other Allergies: Coded Allergies: NO KNOWN ALLERGIES (Unverified Allergy, Unknown, 09/03/15) Subjective NON VERBAL TRANSFERRED OUT OF ICU Objective Vital Signs Last 24 Hour Vital Signs Date Time Temp Pulse Resp B/P (MAP) Pulse Ox O2 Delivery O2 Flow Rate FiO2 11/01/17 11:06 100 22 35 11/01/17 08:50 95 20 40 11/01/17 08:17 92 133/83 11/01/17 08:00 45 11/01/17 07:48 98.2 92 28 133/83 97 Mechanical Ventilator 40 98.2 11/01/17 07:23 86 11/01/17 07:05 92 23 40 11/01/17 05:20 88 18 45 11/01/17 04:00 98.2 79 19 148/89 100 Mechanical Ventilator 45 98.2 11/01/17 04:00 78 11/01/17 04:00 45 11/01/17 03:26 82 20 45 11/01/17 01:28 79 19 45 11/01/17 00:00 98.2 99 19 140/78 100 Mechanical Ventilator 45 98.2 11/01/17 00:00 103 10/31/17 22:55 119 25 45 10/31/17 21:24 104 25 45 10/31/17 20:30 110 125/88 10/31/17 20:00 98.1 100 20 129/75 100 Mechanical Ventilator 45 98.1 10/31/17 20:00 45 10/31/17 19:17 116 22 45 10/31/17 19:06 93 10/31/17 16:49 94 21 45 10/31/17 16:03 98.1 93 20 130/88 100 Mechanical Ventilator 45 98.1 10/31/17 16:02 98 10/31/17 16:02 45 10/31/17 15:27 92 19 45 10/31/17 13:12 106 25 45 10/31/17 12:18 98.4 88 20 133/82 100 Mechanical Ventilator 45 98.4 Height (Feet): 5 Height (Inches): 6.00 Weight (Pounds): 244 HEENT: anicteric Respiratory/Chest: lungs clear Cardiovascular: regularly irregular Abdomen: non distended Microbiology Date/Time Source Procedure Growth Status 10/29/17 14:50 Blood Blood Culture - Preliminary NO GROWTH AFTER 48 HOURS Resulted 10/29/17 14:45 Blood Blood Culture - Preliminary NO GROWTH AFTER 48 HOURS Resulted Laboratory Tests Test 11/01/17 04:00 White Blood Count 33.9 K/UL (4.8-10.8) *H Red Blood Count 3.11 M/UL (4.70-6.10) L Hemoglobin 9.3 G/DL (14.2-18.0) L Hematocrit 27.6 % (42.0-52.0) L Mean Corpuscular Volume 89 FL (80-99) Mean Corpuscular Hemoglobin 30.1 PG (27.0-31.0) Mean Corpuscular Hemoglobin Concent 33.8 G/DL (32.0-36.0) Red Cell Distribution Width 14.5 % (11.6-14.8) Platelet Count 357 K/UL (150-450) Mean Platelet Volume 6.1 FL (6.5-10.1) L Neutrophils (%) (Auto) % (45.0-75.0) Lymphocytes (%) (Auto) % (20.0-45.0) Monocytes (%) (Auto) % (1.0-10.0) Eosinophils (%) (Auto) % (0.0-3.0) Basophils (%) (Auto) % (0.0-2.0) Differential Total Cells Counted 100 Neutrophils % (Manual) 92 % (45-75) H Lymphocytes % (Manual) 2 % (20-45) L Monocytes % (Manual) 6 % (1-10) Eosinophils % (Manual) 0 % (0-3) Basophils % (Manual) 0 % (0-2) Band Neutrophils 0 % (0-8) Platelet Estimate Adequate Platelet Morphology Normal Hypochromasia 2+ Spherocytes 1+ Sodium Level 148 MMOL/L (136-145) H Potassium Level 3.9 MMOL/L (3.5-5.1) Chloride Level 111 MMOL/L (98-107) H Carbon Dioxide Level 26 MMOL/L (21-32) Anion Gap 11 mmol/L (5-15) Blood Urea Nitrogen 76 mg/dL (7-18) H Creatinine 6.0 MG/DL (0.55-1.30) H Estimat Glomerular Filtration Rate 11.6 mL/min (>60) Glucose Level 108 MG/DL (74-106) H Uric Acid 8.4 MG/DL (2.6-7.2) H Calcium Level 7.6 MG/DL (8.5-10.1) L Phosphorus Level 6.1 MG/DL (2.5-4.9) H Magnesium Level 2.2 MG/DL (1.8-2.4) Total Bilirubin 0.5 MG/DL (0.2-1.0) Aspartate Amino Transf (AST/SGOT) 45 U/L (15-37) H Alanine Aminotransferase (ALT/SGPT) 276 U/L (12-78) H Alkaline Phosphatase 128 U/L (46-116) H C-Reactive Protein, Quantitative 13.2 mg/dL (0.00-0.90) H Pro-B-Type Natriuretic Peptide 4029 pg/mL (0-125) H Total Protein 4.6 G/DL (6.4-8.2) L Albumin 1.5 G/DL (3.4-5.0) L Globulin 3.1 g/dL Albumin/Globulin Ratio 0.5 (1.0-2.7) L Current Medications Medications (Trade) Dose Ordered Sig/Olvin Route PRN Reason Start Time Stop Time Status Last Admin Dose Admin Acetaminophen (Tylenol) 650 mg Q4H PRN RECTAL Mild Pain (Pain Scale 1-3) 10/30/17 21:00 11/20/17 20:59 Albuterol/ Ipratropium (Albuterol/ Ipratropium) 3 ml Q4H PRN HHN Shortness of Breath 10/30/17 21:00 11/03/17 20:59 Chlorhexidine Gluconate (Pamela-Hex 2%) 1 applic DAILY@2000 TOPIC 10/31/17 22:00 11/23/17 21:59 10/31/17 20:29 Famotidine (Pepcid I.v.) 20 mg Q24HRS IVP 10/30/17 21:30 11/29/17 21:29 10/31/17 20:51 Metoclopramide HCl (Reglan) 5 mg Q6H PRN GT Irrectractable Nausea/Vomiting 10/30/17 21:00 11/29/17 20:59 Metoprolol Tartrate (Lopressor) 25 mg Q12HR GT 10/30/17 21:30 11/29/17 21:29 11/01/17 08:17 Metronidazole 100 ml @ 100 mls/hr Q8HR IV 10/30/17 22:00 11/03/17 09:59 11/01/17 06:00 Morphine Sulfate (Morphine Sulfate) 2 mg Q2H PRN IVP For Severe Pain 10/30/17 21:00 11/03/17 08:59 Nitroglycerin (Ntg) 0.4 mg Q5MIN X 3 DOSES PRN SL Prn Chest Pain 10/30/17 20:45 11/14/17 17:09 Ondansetron HCl (Zofran) 4 mg Q6H PRN IVP Nausea & Vomiting 10/30/17 21:00 11/29/17 20:59 Vancomycin HCl (Vancomycin) 125 mg FOUR TIMES A DAY ORAL 10/30/17 21:30 11/03/17 21:29 11/01/17 08:17 FAUSTINO AGARWAL M.D. Nov 01, 2017 12:00
[2017-11-01 17:00] VITALS: BP 139/81
--- NOTE | 2017-11-01 19:25 | Cardiology Progress Note ---
Assessment/Plan Assessment/Plan 1. Cardiopulmonary arrest on three separate occasions. 2. Massive gastrointestinal bleed. 3. Encephalopathy. 4. Abnormal liver function tests, likely shock liver. 5. Acute renal failure. 6. Anemia. 7. NSTEMI type2 related to cardiopulmonary resuscitation and renal insufficiency. 8. Chronic respiratory failure. 9. History of cerebrovascular accident. 10. c diff hgb stable now onthe vent empiric abx tele reviewed Subjective ROS Limited/Unobtainable: Yes Objective Last 24 Hour Vital Signs Date Time Temp Pulse Resp B/P (MAP) Pulse Ox O2 Delivery O2 Flow Rate FiO2 11/01/17 17:17 30 11/01/17 17:00 98.2 111 18 139/81 99 Mechanical Ventilator 30 98.2 11/01/17 16:45 Mechanical Ventilator 35 11/01/17 16:42 96 20 35 11/01/17 16:00 35 11/01/17 15:39 90 11/01/17 15:12 97 19 35 11/01/17 13:40 Mechanical Ventilator 35 11/01/17 13:10 94 22 35 11/01/17 12:00 98.2 95 24 134/75 99 Mechanical Ventilator 35 98.2 11/01/17 11:30 35 11/01/17 11:28 89 11/01/17 11:06 100 22 35 11/01/17 11:00 35 11/01/17 08:50 95 20 40 11/01/17 08:17 92 133/83 11/01/17 08:00 45 11/01/17 07:48 98.2 92 28 133/83 97 Mechanical Ventilator 40 98.2 11/01/17 07:23 86 11/01/17 07:05 92 23 40 11/01/17 05:20 88 18 45 11/01/17 04:00 98.2 79 19 148/89 100 Mechanical Ventilator 45 98.2 11/01/17 04:00 78 11/01/17 04:00 45 11/01/17 03:26 82 20 45 11/01/17 01:28 79 19 45 11/01/17 00:00 98.2 99 19 140/78 100 Mechanical Ventilator 45 98.2 11/01/17 00:00 103 10/31/17 22:55 119 25 45 10/31/17 21:24 104 25 45 10/31/17 20:30 110 125/88 2/21/18 20:00 98.1 100 20 129/75 100 Mechanical Ventilator 45 98.1 10/31/17 20:00 45 General Appearance: on vent, patient on isolation Intake and Output 10/31/17 11/01/17 19:00 07:00 Intake Total 560 ml 790 ml Output Total 100 ml 0 ml Balance 460 ml 790 ml Free Water 200 ml 200 ml IV Total 200 ml Tube Feeding 360 ml 330 ml Other 60 ml Output Urine Total 0 ml Stool Total 100 ml # Bowel Movements 20 Laboratory Tests Test 11/01/17 04:00 White Blood Count 33.9 K/UL (4.8-10.8) *H Red Blood Count 3.11 M/UL (4.70-6.10) L Hemoglobin 9.3 G/DL (14.2-18.0) L Hematocrit 27.6 % (42.0-52.0) L Mean Corpuscular Volume 89 FL (80-99) Mean Corpuscular Hemoglobin 30.1 PG (27.0-31.0) Mean Corpuscular Hemoglobin Concent 33.8 G/DL (32.0-36.0) Red Cell Distribution Width 14.5 % (11.6-14.8) Platelet Count 357 K/UL (150-450) Mean Platelet Volume 6.1 FL (6.5-10.1) L Neutrophils (%) (Auto) % (45.0-75.0) Lymphocytes (%) (Auto) % (20.0-45.0) Monocytes (%) (Auto) % (1.0-10.0) Eosinophils (%) (Auto) % (0.0-3.0) Basophils (%) (Auto) % (0.0-2.0) Differential Total Cells Counted 100 Neutrophils % (Manual) 92 % (45-75) H Lymphocytes % (Manual) 2 % (20-45) L Monocytes % (Manual) 6 % (1-10) Eosinophils % (Manual) 0 % (0-3) Basophils % (Manual) 0 % (0-2) Band Neutrophils 0 % (0-8) Platelet Estimate Adequate Platelet Morphology Normal Hypochromasia 2+ Spherocytes 1+ Sodium Level 148 MMOL/L (136-145) H Potassium Level 3.9 MMOL/L (3.5-5.1) Chloride Level 111 MMOL/L (98-107) H Carbon Dioxide Level 26 MMOL/L (21-32) Anion Gap 11 mmol/L (5-15) Blood Urea Nitrogen 76 mg/dL (7-18) H Creatinine 6.0 MG/DL (0.55-1.30) H Estimat Glomerular Filtration Rate 11.6 mL/min (>60) Glucose Level 108 MG/DL (74-106) H Uric Acid 8.4 MG/DL (2.6-7.2) H Calcium Level 7.6 MG/DL (8.5-10.1) L Phosphorus Level 6.1 MG/DL (2.5-4.9) H Magnesium Level 2.2 MG/DL (1.8-2.4) Total Bilirubin 0.5 MG/DL (0.2-1.0) Aspartate Amino Transf (AST/SGOT) 45 U/L (15-37) H Alanine Aminotransferase (ALT/SGPT) 276 U/L (12-78) H Alkaline Phosphatase 128 U/L (46-116) H C-Reactive Protein, Quantitative 13.2 mg/dL (0.00-0.90) H Pro-B-Type Natriuretic Peptide 4029 pg/mL (0-125) H Total Protein 4.6 G/DL (6.4-8.2) L Albumin 1.5 G/DL (3.4-5.0) L Globulin 3.1 g/dL Albumin/Globulin Ratio 0.5 (1.0-2.7) L CHRISTEN LOVE Nov 01, 2017 19:25
[2017-11-01 20:00] VITALS: BP 138/84
[2017-11-01] MEDS: Dyna-Hex 2% Top Sol 2oz TOPIC SCH (20:01)
[2017-11-02] VITALS (7 sets, daily range): BP systolic 109–129; BP diastolic 64–83
[2017-11-02 05:49] LABS: HEMATOCRIT 25.2 % (42.0-52.0); HEMOGLOBIN 8.7 G/DL (14.2-18.0); MEAN CORPUSCULAR VOLUME 89 FL (80-99); PLATELET COUNT 335 K/UL (150-450); RED BLOOD COUNT 2.82 M/UL (4.70-6.10); RED CELL DISTRIBUTION WIDTH 14.6 % (11.6-14.8)
[2017-11-02 06:26] LABS: ALANINE AMINOTRANSFERASE 160 U/L (12-78); ALBUMIN 1.3 G/DL (3.4-5.0); ALBUMIN/GLOBULIN RATIO 0.4 (1.0-2.7); ALKALINE PHOSPHATASE 100 U/L (46-116); ANION GAP 6 mmol/L (5-15); ASPARTATE AMINO TRANSFERASE 34 U/L (15-37); BILIRUBIN,TOTAL 0.5 MG/DL (0.2-1.0); BLOOD UREA NITROGEN 67 mg/dL (7-18); CALCIUM 7.4 MG/DL (8.5-10.1); CARBON DIOXIDE 31 MMOL/L (21-32); CHLORIDE 109 MMOL/L (98-107); CREATININE 5.8 MG/DL (0.55-1.30); POTASSIUM 3.4 MMOL/L (3.5-5.1); SODIUM 146 MMOL/L (136-145)
[2017-11-02] MEDS: Vancomycin oral 125mg/2.5ml ORAL SCH ×4 (09:18→20:57)
[2017-11-02] MEDS: Metoprolol 25mg tab GT SCH ×2 (09:18→20:56)
--- NOTE | 2017-11-02 10:40 | Pulmonolgy Critical Care Note ---
Critical Care - Asmt/Plan Problems: (1) Acute renal failure (ARF) (2) Acute respiratory failure (3) Pneumonia (4) Sepsis (5) C. difficile colitis (6) Feeding by G-tube (7) Epileptic seizure, generalized Respiratory: monitor respiratory rate, adjust FIO2, CXR Cardiac: continue to monitor HR/BP Renal: F/U I&O, keep IV fluid Infectious Disease: check cultures, continue antibiotics Gastrointestinal: continue feedings/current rate Endocrine: monitor blood sugar, check TSH, continue sliding scale insulin Hematologic: monitor H/H, transfuse if hgb<8.5 Neurologic: PRN Ativan, PRN Morphine, keep patient comfortable Affect: PRN ativan Notes Reviewed: manager of corporate, renal Discussed with: nurses, consultants, director of casework departmentsenior catering sales manager - Objective Last 24 Hour Vital Signs Date Time Temp Pulse Resp B/P (MAP) Pulse Ox O2 Delivery O2 Flow Rate FiO2 11/02/17 09:18 84 122/82 11/02/17 09:15 91 22 30 11/02/17 08:58 122/82 11/02/17 08:00 99.0 84 17 109/76 100 Mechanical Ventilator 30 99.0 11/02/17 08:00 30 11/02/17 07:45 89 11/02/17 07:19 84 17 30 11/02/17 05:09 82 18 30 11/02/17 04:01 86 11/02/17 04:00 97.9 83 18 109/74 99 Mechanical Ventilator 30 97.9 11/02/17 04:00 30 11/02/17 03:21 77 18 30 11/02/17 01:13 96 18 30 11/02/17 00:00 30 11/02/17 00:00 98.8 106 20 117/64 97 Mechanical Ventilator 30 98.8 11/01/17 23:54 87 11/01/17 23:19 101 18 30 11/01/17 21:17 90 22 30 11/01/17 20:31 116 138/84 11/01/17 20:03 107 11/01/17 20:00 98.5 106 23 138/84 100 Mechanical Ventilator 30 98.5 11/01/17 20:00 30 11/01/17 18:50 95 19 30 11/01/17 17:17 30 11/01/17 17:00 98.2 111 18 139/81 99 Mechanical Ventilator 30 98.2 11/01/17 16:45 Mechanical Ventilator 35 11/01/17 16:42 96 20 35 11/01/17 16:00 35 11/01/17 15:39 90 11/01/17 15:12 97 19 35 11/01/17 13:40 Mechanical Ventilator 35 11/01/17 13:10 94 22 35 11/01/17 12:00 98.2 95 24 134/75 99 Mechanical Ventilator 35 98.2 11/01/17 11:30 35 11/01/17 11:28 89 11/01/17 11:06 100 22 35 11/01/17 11:00 35 Status: awake Condition: critical Neck: full ROM Heart: HR/BP stable, regular Abdomen: non-tender, feeding tube Extremities: edema Decubiti: stage Critical Care - Subjective ROS Limited/Unobtainable: Yes Condition: critical EKG Rhythm: Sinus Rhythm FI02: 30 Vent Support Breath Rate: 18 Vent Support Mode: AC Vent Tidal Volume: 550 Sputum Amount: Small PEEP: 7.0 PIP: 30 Tube Feeding Amount: 45 I&O: Intake and Output 11/01/17 11/02/17 19:00 07:00 Intake Total 535 ml 465 ml Output Total 1300 ml 0 ml Balance -765 ml 465 ml IV Total 100 ml 200 ml Tube Feeding 435 ml 225 ml Other 40 ml Output Urine Total 20 ml 0 ml Hemodialysis UF 1280 ml # Bowel Movements 20 30 CXR: no change ET-Tube: 8.0 ET Position: 24 Labs: Laboratory Tests Test 11/02/17 05:00 White Blood Count 28.0 K/UL (4.8-10.8) *H Red Blood Count 2.82 M/UL (4.70-6.10) L Hemoglobin 8.7 G/DL (14.2-18.0) L Hematocrit 25.2 % (42.0-52.0) L Mean Corpuscular Volume 89 FL (80-99) Mean Corpuscular Hemoglobin 31.0 PG (27.0-31.0) Mean Corpuscular Hemoglobin Concent 34.7 G/DL (32.0-36.0) Red Cell Distribution Width 14.6 % (11.6-14.8) Platelet Count 335 K/UL (150-450) Mean Platelet Volume 6.3 FL (6.5-10.1) L Neutrophils (%) (Auto) % (45.0-75.0) Lymphocytes (%) (Auto) % (20.0-45.0) Monocytes (%) (Auto) % (1.0-10.0) Eosinophils (%) (Auto) % (0.0-3.0) Basophils (%) (Auto) % (0.0-2.0) Differential Total Cells Counted 100 Neutrophils % (Manual) 92 % (45-75) H Lymphocytes % (Manual) 4 % (20-45) L Monocytes % (Manual) 4 % (1-10) Eosinophils % (Manual) 0 % (0-3) Basophils % (Manual) 0 % (0-2) Band Neutrophils 0 % (0-8) Platelet Estimate Adequate Platelet Morphology Normal Hypochromasia 2+ Spherocytes 1+ Sodium Level 146 MMOL/L (136-145) H Potassium Level 3.4 MMOL/L (3.5-5.1) L Chloride Level 109 MMOL/L (98-107) H Carbon Dioxide Level 31 MMOL/L (21-32) Anion Gap 6 mmol/L (5-15) Blood Urea Nitrogen 67 mg/dL (7-18) H Creatinine 5.8 MG/DL (0.55-1.30) H Estimat Glomerular Filtration Rate 12.1 mL/min (>60) Glucose Level 107 MG/DL (74-106) H Calcium Level 7.4 MG/DL (8.5-10.1) L Total Bilirubin 0.5 MG/DL (0.2-1.0) Aspartate Amino Transf (AST/SGOT) 34 U/L (15-37) Alanine Aminotransferase (ALT/SGPT) 160 U/L (12-78) H Alkaline Phosphatase 100 U/L (46-116) Total Protein 4.9 G/DL (6.4-8.2) L Albumin 1.3 G/DL (3.4-5.0) L Globulin 3.6 g/dL Albumin/Globulin Ratio 0.4 (1.0-2.7) L EDDIE COLES Nov 02, 2017 10:39
--- NOTE | 2017-11-02 10:58 | GI Progress Note ---
Assessment/Plan Problems: (1) Dysphagia ICD Codes: R13.10 - Dysphagia, unspecified SNOMED: 96352022, 342487280 (2) Dementia ICD Codes: F03.90 - Unspecified dementia without behavioral disturbance SNOMED: 25700883 (3) PEG (percutaneous endoscopic gastrostomy) adjustment/replacement/removal ICD Codes: Z43.1 - Encounter for attention to gastrostomy SNOMED: 344858511, 770407819 (4) CVA, old, hemiparesis ICD Codes: I69.359 - Hemiplegia and hemiparesis following cerebral infarction affecting unspecified side SNOMED: 80834809, 68074899, [id number] Status: unchanged Status Narrative Discussed with Dr. Campos. Assessment/Plan Distended small bowel. Ileus versus obstruction. Rectal fecal impaction. >> resolved, repeat KUB shows no acute process. s/p EGD and hemostasis on Sunday stable H&H past few days >> plan repeat EGD if needed cdiff positive >> dc ppi gtt, H2B BID GTFs today per RD to goal GT site care daily/prn prn transfusions abx poor prognosis fu labs Subjective Subjective limited Objective Last 24 Hour Vital Signs Date Time Temp Pulse Resp B/P (MAP) Pulse Ox O2 Delivery O2 Flow Rate FiO2 11/02/17 09:18 84 122/82 11/02/17 09:15 91 22 30 11/02/17 08:58 122/82 11/02/17 08:00 99.0 84 17 109/76 100 Mechanical Ventilator 30 99.0 11/02/17 08:00 30 11/02/17 07:45 89 11/02/17 07:19 84 17 30 11/02/17 05:09 82 18 30 11/02/17 04:01 86 11/02/17 04:00 97.9 83 18 109/74 99 Mechanical Ventilator 30 97.9 11/02/17 04:00 30 11/02/17 03:21 77 18 30 11/02/17 01:13 96 18 30 11/02/17 00:00 30 11/02/17 00:00 98.8 106 20 117/64 97 Mechanical Ventilator 30 98.8 11/01/17 23:54 87 11/01/17 23:19 101 18 30 11/01/17 21:17 90 22 30 11/01/17 20:31 116 138/84 11/01/17 20:03 107 11/01/17 20:00 98.5 106 23 138/84 100 Mechanical Ventilator 30 98.5 11/01/17 20:00 30 11/01/17 18:50 95 19 30 11/01/17 17:17 30 11/01/17 17:00 98.2 111 18 139/81 99 Mechanical Ventilator 30 98.2 11/01/17 16:45 Mechanical Ventilator 35 11/01/17 16:42 96 20 35 11/01/17 16:00 35 11/01/17 15:39 90 11/01/17 15:12 97 19 35 11/01/17 13:40 Mechanical Ventilator 35 11/01/17 13:10 94 22 35 11/01/17 12:00 98.2 95 24 134/75 99 Mechanical Ventilator 35 98.2 11/01/17 11:30 35 11/01/17 11:28 89 11/01/17 11:06 100 22 35 11/01/17 11:00 35 Intake and Output 11/01/17 11/02/17 19:00 07:00 Intake Total 535 ml 465 ml Output Total 1300 ml 0 ml Balance -765 ml 465 ml IV Total 100 ml 200 ml Tube Feeding 435 ml 225 ml Other 40 ml Output Urine Total 20 ml 0 ml Hemodialysis UF 1280 ml # Bowel Movements 20 30 Laboratory Tests Test 11/02/17 05:00 White Blood Count 28.0 K/UL (4.8-10.8) *H Red Blood Count 2.82 M/UL (4.70-6.10) L Hemoglobin 8.7 G/DL (14.2-18.0) L Hematocrit 25.2 % (42.0-52.0) L Mean Corpuscular Volume 89 FL (80-99) Mean Corpuscular Hemoglobin 31.0 PG (27.0-31.0) Mean Corpuscular Hemoglobin Concent 34.7 G/DL (32.0-36.0) Red Cell Distribution Width 14.6 % (11.6-14.8) Platelet Count 335 K/UL (150-450) Mean Platelet Volume 6.3 FL (6.5-10.1) L Neutrophils (%) (Auto) % (45.0-75.0) Lymphocytes (%) (Auto) % (20.0-45.0) Monocytes (%) (Auto) % (1.0-10.0) Eosinophils (%) (Auto) % (0.0-3.0) Basophils (%) (Auto) % (0.0-2.0) Differential Total Cells Counted 100 Neutrophils % (Manual) 92 % (45-75) H Lymphocytes % (Manual) 4 % (20-45) L Monocytes % (Manual) 4 % (1-10) Eosinophils % (Manual) 0 % (0-3) Basophils % (Manual) 0 % (0-2) Band Neutrophils 0 % (0-8) Platelet Estimate Adequate Platelet Morphology Normal Hypochromasia 2+ Spherocytes 1+ Sodium Level 146 MMOL/L (136-145) H Potassium Level 3.4 MMOL/L (3.5-5.1) L Chloride Level 109 MMOL/L (98-107) H Carbon Dioxide Level 31 MMOL/L (21-32) Anion Gap 6 mmol/L (5-15) Blood Urea Nitrogen 67 mg/dL (7-18) H Creatinine 5.8 MG/DL (0.55-1.30) H Estimat Glomerular Filtration Rate 12.1 mL/min (>60) Glucose Level 107 MG/DL (74-106) H Calcium Level 7.4 MG/DL (8.5-10.1) L Total Bilirubin 0.5 MG/DL (0.2-1.0) Aspartate Amino Transf (AST/SGOT) 34 U/L (15-37) Alanine Aminotransferase (ALT/SGPT) 160 U/L (12-78) H Alkaline Phosphatase 100 U/L (46-116) Total Protein 4.9 G/DL (6.4-8.2) L Albumin 1.3 G/DL (3.4-5.0) L Globulin 3.6 g/dL Albumin/Globulin Ratio 0.4 (1.0-2.7) L Height (Feet): 5 Height (Inches): 6.00 Weight (Pounds): 214 General Appearance: no apparent distress Cardiovascular: normal rate Respiratory/Chest: normal breath sounds, no respiratory distress, other - mech vent Abdominal Exam: normal bowel sounds, non tender, soft, GT site - cleaned and dressing changed Extremities: non-tender Laura Lucas N.P. Nov 02, 2017 10:58
--- NOTE | 2017-11-02 12:20 | Infectious Diseases Prog Note ---
Assessment/Plan Assessment/Plan Assessment/Plan C Diff +ve Fever, SP Leukocytosis, improving -CXR: 10/30 : Slightly increased hazy opacity left lung base and obscuration of left hemidiaphragm, may reflect increased infiltrates and/or pleural fluid E.coli UTI w/ bacteremia ; s/p Rx -REnal US: Limited exam. No definite hydronephrosis. Empty bladder, containing a Cervantes catheter. Suspicion for Flu despite rapid test (+URI symptoms, sick contacts); s/p Rx ? Pneum -CXR 10/26: There is right basilar and right perihilar atelectasis and possibly minimal consolidation. Left lung and bilateral pleural spaces remain clear. -Influenza neg Acute hypoxic resp failure- intubated (10/20) 12/18 KUB : Distended small bowel. Ileus versus obstruction. SP Trach 10/23 SP cardiac arrest 10/26 SP hemorrhagic shock (drop Hgb 10.8 to 5)- 10/12 GIB- transaminitis due to shock improving JULIA Lactic acidosis, resolved UGI bleed SP EGD 10/18 and 10/26 Path: H Pylori Neg CVA with hemiplegia HTN cataract dysphagia Hx of fall CAD/MA CVA/TIA dementia seizure disorder Plan: -Continue Flagyl and oral Vanco d# 7 /14 10/30 SP Meropenem d# 5 - 10/29 SP IV Vanco # 10 - 10/26 SP Zosyn #6 - 10/21 SP Ceftriaxone 2 g qd d# 11 - 10/17 SP empiric Tamiflu #6/5 -2/5 SP IV Vancomcyin #5, Meropenm #3 -2/3 SP Cefepime #3 -Monitor CBC/BMP, temperatures; - monitor Bl Cx -aspiration precautions - vent Support - Subjective Allergies: Coded Allergies: NO KNOWN ALLERGIES (Unverified Allergy, Unknown, 09/03/15) Subjective wbc improving Objective Vital Signs Last 24 Hour Vital Signs Date Time Temp Pulse Resp B/P (MAP) Pulse Ox O2 Delivery O2 Flow Rate FiO2 11/02/17 11:02 91 19 30 11/02/17 09:18 84 122/82 11/02/17 09:15 91 22 30 11/02/17 08:58 122/82 11/02/17 08:00 99.0 84 17 109/76 100 Mechanical Ventilator 30 99.0 11/02/17 08:00 30 11/02/17 07:45 89 11/02/17 07:19 84 17 30 11/02/17 05:09 82 18 30 11/02/17 04:01 86 11/02/17 04:00 97.9 83 18 109/74 99 Mechanical Ventilator 30 97.9 11/02/17 04:00 30 11/02/17 03:21 77 18 30 11/02/17 01:13 96 18 30 11/02/17 00:00 30 11/02/17 00:00 98.8 106 20 117/64 97 Mechanical Ventilator 30 98.8 11/01/17 23:54 87 11/01/17 23:19 101 18 30 11/01/17 21:17 90 22 30 11/01/17 20:31 116 138/84 11/01/17 20:03 107 11/01/17 20:00 98.5 106 23 138/84 100 Mechanical Ventilator 30 98.5 11/01/17 20:00 30 11/01/17 18:50 95 19 30 11/01/17 17:17 30 11/01/17 17:00 98.2 111 18 139/81 99 Mechanical Ventilator 30 98.2 11/01/17 16:45 Mechanical Ventilator 35 11/01/17 16:42 96 20 35 11/01/17 16:00 35 11/01/17 15:39 90 11/01/17 15:12 97 19 35 11/01/17 13:40 Mechanical Ventilator 35 11/01/17 13:10 94 22 35 Height (Feet): 5 Height (Inches): 6.00 Weight (Pounds): 214 HEENT: anicteric Respiratory/Chest: normal breath sounds Cardiovascular: regular rhythm Abdomen: no organomegaly Laboratory Tests Test 11/02/17 05:00 White Blood Count 28.0 K/UL (4.8-10.8) *H Red Blood Count 2.82 M/UL (4.70-6.10) L Hemoglobin 8.7 G/DL (14.2-18.0) L Hematocrit 25.2 % (42.0-52.0) L Mean Corpuscular Volume 89 FL (80-99) Mean Corpuscular Hemoglobin 31.0 PG (27.0-31.0) Mean Corpuscular Hemoglobin Concent 34.7 G/DL (32.0-36.0) Red Cell Distribution Width 14.6 % (11.6-14.8) Platelet Count 335 K/UL (150-450) Mean Platelet Volume 6.3 FL (6.5-10.1) L Neutrophils (%) (Auto) % (45.0-75.0) Lymphocytes (%) (Auto) % (20.0-45.0) Monocytes (%) (Auto) % (1.0-10.0) Eosinophils (%) (Auto) % (0.0-3.0) Basophils (%) (Auto) % (0.0-2.0) Differential Total Cells Counted 100 Neutrophils % (Manual) 92 % (45-75) H Lymphocytes % (Manual) 4 % (20-45) L Monocytes % (Manual) 4 % (1-10) Eosinophils % (Manual) 0 % (0-3) Basophils % (Manual) 0 % (0-2) Band Neutrophils 0 % (0-8) Platelet Estimate Adequate Platelet Morphology Normal Hypochromasia 2+ Spherocytes 1+ Sodium Level 146 MMOL/L (136-145) H Potassium Level 3.4 MMOL/L (3.5-5.1) L Chloride Level 109 MMOL/L (98-107) H Carbon Dioxide Level 31 MMOL/L (21-32) Anion Gap 6 mmol/L (5-15) Blood Urea Nitrogen 67 mg/dL (7-18) H Creatinine 5.8 MG/DL (0.55-1.30) H Estimat Glomerular Filtration Rate 12.1 mL/min (>60) Glucose Level 107 MG/DL (74-106) H Calcium Level 7.4 MG/DL (8.5-10.1) L Total Bilirubin 0.5 MG/DL (0.2-1.0) Aspartate Amino Transf (AST/SGOT) 34 U/L (15-37) Alanine Aminotransferase (ALT/SGPT) 160 U/L (12-78) H Alkaline Phosphatase 100 U/L (46-116) Total Protein 4.9 G/DL (6.4-8.2) L Albumin 1.3 G/DL (3.4-5.0) L Globulin 3.6 g/dL Albumin/Globulin Ratio 0.4 (1.0-2.7) L Current Medications Medications (Trade) Dose Ordered Sig/Olvin Route PRN Reason Start Time Stop Time Status Last Admin Dose Admin Acetaminophen (Tylenol) 650 mg Q4H PRN RECTAL Mild Pain (Pain Scale 1-3) 10/30/17 21:00 11/20/17 20:59 Albuterol/ Ipratropium (Albuterol/ Ipratropium) 3 ml Q4H PRN HHN Shortness of Breath 10/30/17 21:00 11/03/17 20:59 Chlorhexidine Gluconate (Pamela-Hex 2%) 1 applic DAILY@2000 TOPIC 10/31/17 22:00 11/23/17 21:59 11/01/17 20:01 Famotidine (Pepcid I.v.) 20 mg Q24HRS IVP 10/30/17 21:30 11/29/17 21:29 11/01/17 21:43 Metoclopramide HCl (Reglan) 5 mg Q6H PRN GT Irrectractable Nausea/Vomiting 10/30/17 21:00 11/29/17 20:59 Metoprolol Tartrate (Lopressor) 25 mg Q12HR GT 10/30/17 21:30 11/29/17 21:29 11/02/17 09:18 Metronidazole 100 ml @ 100 mls/hr Q8HR IV 10/30/17 22:00 11/03/17 09:59 11/02/17 05:41 Morphine Sulfate (Morphine Sulfate) 2 mg Q2H PRN IVP For Severe Pain 10/30/17 21:00 11/03/17 08:59 Nitroglycerin (Ntg) 0.4 mg Q5MIN X 3 DOSES PRN SL Prn Chest Pain 10/30/17 20:45 11/14/17 17:09 Ondansetron HCl (Zofran) 4 mg Q6H PRN IVP Nausea & Vomiting 10/30/17 21:00 11/29/17 20:59 Vancomycin HCl (Vancomycin) 125 mg FOUR TIMES A DAY ORAL 10/30/17 21:30 11/03/17 21:29 11/02/17 09:18 FAUSTINO AGARWAL M.D. Nov 02, 2017 12:20
--- NOTE | 2017-11-02 14:06 | Nephrology Progress Note ---
Assessment/Plan Problem List: (1) Acute renal failure (ARF) (2) Respiratory failure (3) Shock liver Assessment JULIA , due to Shock , Hemorrhagic / Septic / C dif colitis Off Pressors- Shock liver resolving High Troponin: IN Bradycardic - Vfib cardiac arrest 10/26 likely 2ry to hemorrhagic shock (drop Hgb 10.8 to 5) - GIB- Fever, ongoing Leukocytosis, worsening after code E.coli UTI w/ bacteremia Acute hypoxic resp failure- s/p Trach . Plan Plan: BP stablized DC Protonix drip start GT feeding HD trial as needed- next 11/03 on C dif treatment protocol monitor urine out put and Renal parameters discussed with RN Subjective ROS Limited/Unobtainable: Yes Objective Objective Last 24 Hour Vital Signs Date Time Temp Pulse Resp B/P (MAP) Pulse Ox O2 Delivery O2 Flow Rate FiO2 11/02/17 12:00 98.9 82 16 129/78 99 Mechanical Ventilator 30 98.9 11/02/17 12:00 30 11/02/17 11:46 74 11/02/17 11:02 91 19 30 11/02/17 09:18 84 122/82 11/02/17 09:15 91 22 30 11/02/17 08:58 122/82 11/02/17 08:00 99.0 84 17 109/76 100 Mechanical Ventilator 30 99.0 11/02/17 08:00 30 11/02/17 07:45 89 11/02/17 07:19 84 17 30 11/02/17 05:09 82 18 30 11/02/17 04:01 86 11/02/17 04:00 97.9 83 18 109/74 99 Mechanical Ventilator 30 97.9 11/02/17 04:00 30 11/02/17 03:21 77 18 30 11/02/17 01:13 96 18 30 11/02/17 00:00 30 11/02/17 00:00 98.8 106 20 117/64 97 Mechanical Ventilator 30 98.8 11/01/17 23:54 87 11/01/17 23:19 101 18 30 11/01/17 21:17 90 22 30 11/01/17 20:31 116 138/84 11/01/17 20:03 107 11/01/17 20:00 98.5 106 23 138/84 100 Mechanical Ventilator 30 98.5 11/01/17 20:00 30 11/01/17 18:50 95 19 30 11/01/17 17:17 30 11/01/17 17:00 98.2 111 18 139/81 99 Mechanical Ventilator 30 98.2 11/01/17 16:45 Mechanical Ventilator 35 11/01/17 16:42 96 20 35 11/01/17 16:00 35 11/01/17 15:39 90 11/01/17 15:12 97 19 35 Intake and Output 11/01/17 11/02/17 19:00 07:00 Intake Total 535 ml 465 ml Output Total 1300 ml 0 ml Balance -765 ml 465 ml IV Total 100 ml 200 ml Tube Feeding 435 ml 225 ml Other 40 ml Output Urine Total 20 ml 0 ml Hemodialysis UF 1280 ml # Bowel Movements 20 30 Laboratory Tests 11/02/17 05:00: White Blood Count 28.0*H, Red Blood Count 2.82L, Hemoglobin 8.7L, Hematocrit 25.2L, Mean Corpuscular Volume 89, Mean Corpuscular Hemoglobin 31.0, Mean Corpuscular Hemoglobin Concent 34.7, Red Cell Distribution Width 14.6, Platelet Count 335, Mean Platelet Volume 6.3L, Neutrophils (%) (Auto) , Lymphocytes (%) ( Auto) , Monocytes (%) (Auto) , Eosinophils (%) (Auto) , Basophils (%) (Auto) , Differential Total Cells Counted 100, Neutrophils % (Manual) 92H, Lymphocytes % (Manual) 4L, Monocytes % (Manual) 4, Eosinophils % (Manual) 0, Basophils % ( Manual) 0, Band Neutrophils 0, Platelet Estimate Adequate, Platelet Morphology Normal, Hypochromasia 2+, Spherocytes 1+, Sodium Level 146H, Potassium Level 3.4L, Chloride Level 109H, Carbon Dioxide Level 31, Anion Gap 6, Blood Urea Nitrogen 67H, Creatinine 5.8H, Estimat Glomerular Filtration Rate 12.1, Glucose Level 107H, Calcium Level 7.4L, Total Bilirubin 0.5, Aspartate Amino Transf (AST /SGOT) 34, Alanine Aminotransferase (ALT/SGPT) 160H, Alkaline Phosphatase 100, Total Protein 4.9L, Albumin 1.3L, Globulin 3.6, Albumin/Globulin Ratio 0.4L Height (Feet): 5 Height (Inches): 6.00 Weight (Pounds): 214 General Appearance: lethargic Cardiovascular: tachycardia Respiratory/Chest: decreased breath sounds Abdomen: distended Objective no other change YVES SINHA Nov 02, 2017 14:06
--- NOTE | 2017-11-02 19:09 | Cardiology Progress Note ---
Assessment/Plan Assessment/Plan 1. Cardiopulmonary arrest on three separate occasions. 2. Massive gastrointestinal bleed. 3. Encephalopathy. 4. Abnormal liver function tests, likely shock liver. 5. Acute renal failure. 6. Anemia. 7. NSTEMI type2 related to cardiopulmonary resuscitation and renal insufficiency. 8. Chronic respiratory failure. 9. History of cerebrovascular accident. 10. c diff hgb min lower onthe vent empiric abx dialysis labs noted bc neg Subjective ROS Limited/Unobtainable: Yes Objective Last 24 Hour Vital Signs Date Time Temp Pulse Resp B/P (MAP) Pulse Ox O2 Delivery O2 Flow Rate FiO2 11/02/17 17:20 94 19 30 11/02/17 16:02 84 11/02/17 16:00 98.9 90 19 124/83 99 Mechanical Ventilator 30 98.9 11/02/17 16:00 30 11/02/17 15:16 84 18 30 11/02/17 13:14 88 17 30 11/02/17 12:00 98.9 82 16 129/78 99 Mechanical Ventilator 30 98.9 11/02/17 12:00 30 11/02/17 11:46 74 11/02/17 11:02 91 19 30 11/02/17 09:18 84 122/82 11/02/17 09:15 91 22 30 11/02/17 08:58 122/82 11/02/17 08:00 99.0 84 17 109/76 100 Mechanical Ventilator 30 99.0 11/02/17 08:00 30 11/02/17 07:45 89 11/02/17 07:19 84 17 30 11/02/17 05:09 82 18 30 11/02/17 04:01 86 11/02/17 04:00 97.9 83 18 109/74 99 Mechanical Ventilator 30 97.9 11/02/17 04:00 30 11/02/17 03:21 77 18 30 11/02/17 01:13 96 18 30 11/02/17 00:00 30 11/02/17 00:00 98.8 106 20 117/64 97 Mechanical Ventilator 30 98.8 11/01/17 23:54 87 11/01/17 23:19 101 18 30 11/01/17 21:17 90 22 30 11/01/17 20:31 116 138/84 11/01/17 20:03 107 11/01/17 20:00 98.5 106 23 138/84 100 Mechanical Ventilator 30 98.5 11/01/17 20:00 30 General Appearance: on vent, patient on isolation Cardiovascular: normal rate Respiratory/Chest: rhonchi - bilaterally Abdomen: normal bowel sounds, non tender, soft Extremities: trace edema Intake and Output 11/01/17 11/02/17 19:00 07:00 Intake Total 535 ml 510 ml Output Total 1300 ml 0 ml Balance -765 ml 510 ml IV Total 100 ml 200 ml Tube Feeding 435 ml 270 ml Other 40 ml Output Urine Total 20 ml 0 ml Hemodialysis UF 1280 ml # Bowel Movements 20 30 Laboratory Tests Test 11/02/17 05:00 White Blood Count 28.0 K/UL (4.8-10.8) *H Red Blood Count 2.82 M/UL (4.70-6.10) L Hemoglobin 8.7 G/DL (14.2-18.0) L Hematocrit 25.2 % (42.0-52.0) L Mean Corpuscular Volume 89 FL (80-99) Mean Corpuscular Hemoglobin 31.0 PG (27.0-31.0) Mean Corpuscular Hemoglobin Concent 34.7 G/DL (32.0-36.0) Red Cell Distribution Width 14.6 % (11.6-14.8) Platelet Count 335 K/UL (150-450) Mean Platelet Volume 6.3 FL (6.5-10.1) L Neutrophils (%) (Auto) % (45.0-75.0) Lymphocytes (%) (Auto) % (20.0-45.0) Monocytes (%) (Auto) % (1.0-10.0) Eosinophils (%) (Auto) % (0.0-3.0) Basophils (%) (Auto) % (0.0-2.0) Differential Total Cells Counted 100 Neutrophils % (Manual) 92 % (45-75) H Lymphocytes % (Manual) 4 % (20-45) L Monocytes % (Manual) 4 % (1-10) Eosinophils % (Manual) 0 % (0-3) Basophils % (Manual) 0 % (0-2) Band Neutrophils 0 % (0-8) Platelet Estimate Adequate Platelet Morphology Normal Hypochromasia 2+ Spherocytes 1+ Sodium Level 146 MMOL/L (136-145) H Potassium Level 3.4 MMOL/L (3.5-5.1) L Chloride Level 109 MMOL/L (98-107) H Carbon Dioxide Level 31 MMOL/L (21-32) Anion Gap 6 mmol/L (5-15) Blood Urea Nitrogen 67 mg/dL (7-18) H Creatinine 5.8 MG/DL (0.55-1.30) H Estimat Glomerular Filtration Rate 12.1 mL/min (>60) Glucose Level 107 MG/DL (74-106) H Calcium Level 7.4 MG/DL (8.5-10.1) L Total Bilirubin 0.5 MG/DL (0.2-1.0) Aspartate Amino Transf (AST/SGOT) 34 U/L (15-37) Alanine Aminotransferase (ALT/SGPT) 160 U/L (12-78) H Alkaline Phosphatase 100 U/L (46-116) Total Protein 4.9 G/DL (6.4-8.2) L Albumin 1.3 G/DL (3.4-5.0) L Globulin 3.6 g/dL Albumin/Globulin Ratio 0.4 (1.0-2.7) L CHRISTEN LOVE Nov 02, 2017 19:09
[2017-11-02] MEDS: Dyna-Hex 2% Top Sol 2oz TOPIC SCH (20:56)
[2017-11-03] VITALS (7 sets, daily range): BP systolic 128–170; BP diastolic 78–100
[2017-11-03 05:40] LABS: INR 1.3 (0.9-1.1)
[2017-11-03 05:41] LABS: HEMATOCRIT 26.4 % (42.0-52.0); HEMOGLOBIN 9.1 G/DL (14.2-18.0); MEAN CORPUSCULAR VOLUME 90 FL (80-99); PLATELET COUNT 404 K/UL (150-450); RED BLOOD COUNT 2.94 M/UL (4.70-6.10); RED CELL DISTRIBUTION WIDTH 14.4 % (11.6-14.8)
[2017-11-03 06:08] LABS: WHITE BLOOD COUNT 27.7 K/UL (4.8-10.8)
[2017-11-03 06:13] LABS: ALANINE AMINOTRANSFERASE 111 U/L (12-78); ALBUMIN 1.3 G/DL (3.4-5.0); ALBUMIN/GLOBULIN RATIO 0.3 (1.0-2.7); ALKALINE PHOSPHATASE 112 U/L (46-116); ANION GAP 11 mmol/L (5-15); ASPARTATE AMINO TRANSFERASE 32 U/L (15-37); BILIRUBIN,TOTAL 0.5 MG/DL (0.2-1.0); BLOOD UREA NITROGEN 83 mg/dL (7-18); CALCIUM 7.7 MG/DL (8.5-10.1); CARBON DIOXIDE 26 MMOL/L (21-32); CHLORIDE 107 MMOL/L (98-107); PHOSPHORUS 6.6 MG/DL (2.5-4.9); POTASSIUM 3.8 MMOL/L (3.5-5.1); SODIUM 144 MMOL/L (136-145)
--- NOTE | 2017-11-03 07:21 | Pulmonolgy Critical Care Note ---
Critical Care - Asmt/Plan Problems: (1) Acute renal failure (ARF) (2) Acute respiratory failure (3) Pneumonia (4) Sepsis (5) C. difficile colitis (6) Feeding by G-tube (7) Epileptic seizure, generalized Respiratory: adjust tidal volume, monitor respiratory rate, adjust FIO2, CXR Cardiac: continue to monitor HR/BP Renal: F/U I&O, keep IV fluid Infectious Disease: check cultures Gastrointestinal: continue feedings/current rate Endocrine: monitor blood sugar, check HgA1C, continue sliding scale insulin Hematologic: monitor H/H, transfuse if hgb<8.5 Neurologic: PRN Ativan, PRN Morphine, keep patient comfortable Time Spent (Minutes): 40 Notes Reviewed: case repairer, cardio Discussed with: nurses, consultants, case repairermotel manager - Objective Last 24 Hour Vital Signs Date Time Temp Pulse Resp B/P (MAP) Pulse Ox O2 Delivery O2 Flow Rate FiO2 11/03/17 05:22 89 18 30 11/03/17 04:00 98.2 84 18 132/78 98 Mechanical Ventilator 30 98.2 11/03/17 04:00 102 11/03/17 04:00 30 11/03/17 03:32 107 20 30 11/03/17 00:30 99 18 30 11/03/17 00:00 89 11/03/17 00:00 97.9 78 20 128/79 99 Mechanical Ventilator 30 97.9 11/03/17 00:00 30 11/02/17 23:30 98 19 30 11/02/17 21:30 90 19 30 11/02/17 20:56 99 124/83 11/02/17 20:00 106 11/02/17 20:00 30 11/02/17 20:00 98.9 89 20 122/78 99 Mechanical Ventilator 30 98.9 11/02/17 19:30 94 18 30 11/02/17 17:20 94 19 30 11/02/17 16:02 84 11/02/17 16:00 98.9 90 19 124/83 99 Mechanical Ventilator 30 98.9 11/02/17 16:00 30 11/02/17 15:16 84 18 30 11/02/17 13:14 88 17 30 11/02/17 12:00 98.9 82 16 129/78 99 Mechanical Ventilator 30 98.9 11/02/17 12:00 30 11/02/17 11:46 74 11/02/17 11:02 91 19 30 11/02/17 09:18 84 122/82 11/02/17 09:15 91 22 30 11/02/17 08:58 122/82 11/02/17 08:00 99.0 84 17 109/76 100 Mechanical Ventilator 30 99.0 11/02/17 08:00 30 11/02/17 07:45 89 Status: awake Condition: critical HEENT: atraumatic Neck: full ROM Lungs: clear Heart: HR/BP stable Abdomen: active bowel sounds Extremities: no C/C/E, edema Decubiti: location Critical Care - Subjective ROS Limited/Unobtainable: No Condition: critical EKG Rhythm: Sinus Rhythm FI02: 30 Vent Support Breath Rate: 18 Vent Support Mode: AC Vent Tidal Volume: 550 Sputum Amount: Small PEEP: 7.0 PIP: 28 Tube Feeding Amount: 45 I&O: Intake and Output 11/02/17 11/03/17 19:00 07:00 Intake Total 730 ml 980 ml Output Total 30 ml 350 ml Balance 700 ml 630 ml Free Water 150 ml IV Total 100 ml 200 ml Tube Feeding 540 ml 630 ml Other 90 ml Output Urine Total 0 ml 350 ml Stool Total 30 ml 0 ml CXR: no change ET-Tube: 8.0 ET Position: 24 Labs: Laboratory Tests Test 11/03/17 03:55 White Blood Count 27.7 K/UL (4.8-10.8) *H Red Blood Count 2.94 M/UL (4.70-6.10) L Hemoglobin 9.1 G/DL (14.2-18.0) L Hematocrit 26.4 % (42.0-52.0) L Mean Corpuscular Volume 90 FL (80-99) Mean Corpuscular Hemoglobin 31.0 PG (27.0-31.0) Mean Corpuscular Hemoglobin Concent 34.4 G/DL (32.0-36.0) Red Cell Distribution Width 14.4 % (11.6-14.8) Platelet Count 404 K/UL (150-450) Mean Platelet Volume 5.9 FL (6.5-10.1) L Neutrophils (%) (Auto) % (45.0-75.0) Lymphocytes (%) (Auto) % (20.0-45.0) Monocytes (%) (Auto) % (1.0-10.0) Eosinophils (%) (Auto) % (0.0-3.0) Basophils (%) (Auto) % (0.0-2.0) Neutrophils % (Manual) Pending Lymphocytes % (Manual) Pending Platelet Estimate Pending Platelet Morphology Pending Prothrombin Time 13.8 SEC (9.30-11.50) H Prothromb Time International Ratio 1.3 (0.9-1.1) H Activated Partial Thromboplast Time 28 SEC (23-33) Sodium Level 144 MMOL/L (136-145) Potassium Level 3.8 MMOL/L (3.5-5.1) Chloride Level 107 MMOL/L (98-107) Carbon Dioxide Level 26 MMOL/L (21-32) Anion Gap 11 mmol/L (5-15) Blood Urea Nitrogen 83 mg/dL (7-18) H Creatinine 7.0 MG/DL (0.55-1.30) H Estimat Glomerular Filtration Rate 9.7 mL/min (>60) Glucose Level 107 MG/DL (74-106) H Calcium Level 7.7 MG/DL (8.5-10.1) L Phosphorus Level 6.6 MG/DL (2.5-4.9) H Magnesium Level 2.0 MG/DL (1.8-2.4) Total Bilirubin 0.5 MG/DL (0.2-1.0) Aspartate Amino Transf (AST/SGOT) 32 U/L (15-37) Alanine Aminotransferase (ALT/SGPT) 111 U/L (12-78) H Alkaline Phosphatase 112 U/L (46-116) Total Protein 5.5 G/DL (6.4-8.2) L Albumin 1.3 G/DL (3.4-5.0) L Globulin 4.2 g/dL Albumin/Globulin Ratio 0.3 (1.0-2.7) L EDDIE COLES Nov 03, 2017 07:21
[2017-11-03] MEDS: Metoprolol 25mg tab GT SCH ×2 (09:23→21:11)
[2017-11-03] MEDS: Vancomycin oral 125mg/2.5ml ORAL SCH ×4 (09:23→21:11)
--- NOTE | 2017-11-03 10:05 | Infectious Diseases Prog Note ---
Assessment/Plan Assessment/Plan C Diff +ve Fever, SP Leukocytosis, improving -CXR: 10/30 : Slightly increased hazy opacity left lung base and obscuration of left hemidiaphragm, may reflect increased infiltrates and/or pleural fluid E.coli UTI w/ bacteremia ; s/p Rx -REnal US: Limited exam. No definite hydronephrosis. Empty bladder, containing a Cervantes catheter. Suspicion for Flu despite rapid test (+URI symptoms, sick contacts); s/p Rx ? Pneum -CXR 10/26: There is right basilar and right perihilar atelectasis and possibly minimal consolidation. Left lung and bilateral pleural spaces remain clear. -Influenza neg Acute hypoxic resp failure- intubated (10/20) 12/18 KUB : Distended small bowel. Ileus versus obstruction. SP Trach 10/23 SP cardiac arrest 10/26 SP hemorrhagic shock (drop Hgb 10.8 to 5)- 10/12 GIB- transaminitis due to shock improving JULIA Lactic acidosis, resolved UGI bleed SP EGD 10/18 and 10/26 Path: H Pylori Neg CVA with hemiplegia HTN cataract dysphagia Hx of fall CAD/TN CVA/TIA dementia seizure disorder Plan: -Continue Flagyl and oral Vanco d# /10/30 SP Meropenem d# 5 - 10/29 SP IV Vanco # 10 - 10/26 SP Zosyn #6 - 10/21 SP Ceftriaxone 2 g qd d# 11 - 10/17 SP empiric Tamiflu #6/5 -2/ SP IV Vancomcyin #5, Meropenm #3 -2/3 SP Cefepime #3 -Monitor CBC/BMP, temperatures; - monitor Bl Cx -aspiration precautions - vent Support Subjective Allergies: Coded Allergies: NO KNOWN ALLERGIES (Unverified Allergy, Unknown, 09/03/15) Subjective afebrile leukocytosis improving Bcx NTD Objective Vital Signs Last 24 Hour Vital Signs Date Time Temp Pulse Resp B/P (MAP) Pulse Ox O2 Delivery O2 Flow Rate FiO2 11/03/17 09:25 100 18 30 11/03/17 09:23 97 136/88 11/03/17 08:00 98.9 97 16 136/88 100 Mechanical Ventilator 30 98.9 11/03/17 07:25 100 18 30 11/03/17 05:22 89 18 30 11/03/17 04:00 98.2 84 18 132/78 98 Mechanical Ventilator 30 98.2 11/03/17 04:00 102 11/03/17 04:00 30 11/03/17 03:32 107 20 30 11/03/17 00:30 99 18 30 11/03/17 00:00 89 11/03/17 00:00 97.9 78 20 128/79 99 Mechanical Ventilator 30 97.9 11/03/17 00:00 30 11/02/17 23:30 98 19 30 11/02/17 21:30 90 19 30 11/02/17 20:56 99 124/83 11/02/17 20:00 106 11/02/17 20:00 30 11/02/17 20:00 98.9 89 20 122/78 99 Mechanical Ventilator 30 98.9 11/02/17 19:30 94 18 30 11/02/17 17:20 94 19 30 11/02/17 16:02 84 11/02/17 16:00 98.9 90 19 124/83 99 Mechanical Ventilator 30 98.9 11/02/17 16:00 30 11/02/17 15:16 84 18 30 11/02/17 13:14 88 17 30 11/02/17 12:00 98.9 82 16 129/78 99 Mechanical Ventilator 30 98.9 11/02/17 12:00 30 11/02/17 11:46 74 11/02/17 11:02 91 19 30 Height (Feet): 5 Height (Inches): 6.00 Weight (Pounds): 213 Objective General Appearance: alert, moderate distress, Chronically Ill Head: normocephalic, atraumatic ENT: trach in place Neck: full range of motion, supple/symm/no masses Respiratory: chest non-tender, coarse breath asounds Cardiovascular no edema, tachycardia Gastrointestinal: normal bowel sounds, non tender, soft, non-distended, no guarding, no rebound Musculoskeletal: back normal, normal range of motion Skin: normal color, no rash, warm/dry, well hydrated Laboratory Tests Test 11/03/17 03:55 White Blood Count 27.7 K/UL (4.8-10.8) *H Red Blood Count 2.94 M/UL (4.70-6.10) L Hemoglobin 9.1 G/DL (14.2-18.0) L Hematocrit 26.4 % (42.0-52.0) L Mean Corpuscular Volume 90 FL (80-99) Mean Corpuscular Hemoglobin 31.0 PG (27.0-31.0) Mean Corpuscular Hemoglobin Concent 34.4 G/DL (32.0-36.0) Red Cell Distribution Width 14.4 % (11.6-14.8) Platelet Count 404 K/UL (150-450) Mean Platelet Volume 5.9 FL (6.5-10.1) L Neutrophils (%) (Auto) % (45.0-75.0) Lymphocytes (%) (Auto) % (20.0-45.0) Monocytes (%) (Auto) % (1.0-10.0) Eosinophils (%) (Auto) % (0.0-3.0) Basophils (%) (Auto) % (0.0-2.0) Differential Total Cells Counted 100 Neutrophils % (Manual) 80 % (45-75) H Lymphocytes % (Manual) 10 % (20-45) L Monocytes % (Manual) 10 % (1-10) Eosinophils % (Manual) 0 % (0-3) Basophils % (Manual) 0 % (0-2) Band Neutrophils 0 % (0-8) Platelet Estimate Adequate Platelet Morphology Normal Hypochromasia Anisocytosis 1+ Prothrombin Time 13.8 SEC (9.30-11.50) H Prothromb Time International Ratio 1.3 (0.9-1.1) H Activated Partial Thromboplast Time 28 SEC (23-33) Sodium Level 144 MMOL/L (136-145) Potassium Level 3.8 MMOL/L (3.5-5.1) Chloride Level 107 MMOL/L (98-107) Carbon Dioxide Level 26 MMOL/L (21-32) Anion Gap 11 mmol/L (5-15) Blood Urea Nitrogen 83 mg/dL (7-18) H Creatinine 7.0 MG/DL (0.55-1.30) H Estimat Glomerular Filtration Rate 9.7 mL/min (>60) Glucose Level 107 MG/DL (74-106) H Calcium Level 7.7 MG/DL (8.5-10.1) L Phosphorus Level 6.6 MG/DL (2.5-4.9) H Magnesium Level 2.0 MG/DL (1.8-2.4) Total Bilirubin 0.5 MG/DL (0.2-1.0) Aspartate Amino Transf (AST/SGOT) 32 U/L (15-37) Alanine Aminotransferase (ALT/SGPT) 111 U/L (12-78) H Alkaline Phosphatase 112 U/L (46-116) Total Protein 5.5 G/DL (6.4-8.2) L Albumin 1.3 G/DL (3.4-5.0) L Globulin 4.2 g/dL Albumin/Globulin Ratio 0.3 (1.0-2.7) L Current Medications Medications (Trade) Dose Ordered Sig/Olvin Route PRN Reason Start Time Stop Time Status Last Admin Dose Admin Acetaminophen (Tylenol) 650 mg Q4H PRN RECTAL Mild Pain (Pain Scale 1-3) 10/30/17 21:00 11/20/17 20:59 Albuterol/ Ipratropium (Albuterol/ Ipratropium) 3 ml Q4H PRN HHN Shortness of Breath 10/30/17 21:00 11/03/17 20:59 Chlorhexidine Gluconate (Pamela-Hex 2%) 1 applic DAILY@2000 TOPIC 10/31/17 22:00 11/23/17 21:59 11/02/17 20:56 Famotidine (Pepcid I.v.) 20 mg Q24HRS IVP 10/30/17 21:30 11/29/17 21:29 11/02/17 20:57 Metoclopramide HCl (Reglan) 5 mg Q6H PRN GT Irrectractable Nausea/Vomiting 10/30/17 21:00 11/29/17 20:59 Metoprolol Tartrate (Lopressor) 25 mg Q12HR GT 10/30/17 21:30 11/29/17 21:29 11/03/17 09:23 Metronidazole 100 ml @ 100 mls/hr Q8HR IV 10/30/17 22:00 11/09/17 23:59 11/03/17 05:04 Nitroglycerin (Ntg) 0.4 mg Q5MIN X 3 DOSES PRN SL Prn Chest Pain 10/30/17 20:45 11/14/17 17:09 Ondansetron HCl (Zofran) 4 mg Q6H PRN IVP Nausea & Vomiting 10/30/17 21:00 11/29/17 20:59 Vancomycin HCl (Vancomycin) 125 mg FOUR TIMES A DAY ORAL 10/30/17 21:30 11/09/17 23:59 11/03/17 09:23 Alessia Akers M.D. Nov 03, 2017 10:05
--- NOTE | 2017-11-03 11:58 | Nephrology Progress Note ---
Assessment/Plan Problem List: (1) Acute renal failure (ARF) (2) Respiratory failure (3) Shock liver Assessment JULIA , due to Shock , Hemorrhagic / Septic / C dif colitis Off Pressors- Shock liver resolving High Troponin: [place] Bradycardic - Vfib cardiac arrest 10/26 likely 2ry to hemorrhagic shock (drop Hgb 10.8 to 5) - GIB- Fever, ongoing Leukocytosis, worsening after code E.coli UTI w/ bacteremia Acute hypoxic resp failure- s/p Trach . Plan Plan: add Renvela and Lactobacillus BP stablized start GT feeding HD trial as needed- next 11/03 on C dif treatment protocol monitor urine out put and Renal parameters discussed with RN Subjective ROS Limited/Unobtainable: No Constitutional: Reports: malaise Objective Objective Last 24 Hour Vital Signs Date Time Temp Pulse Resp B/P (MAP) Pulse Ox O2 Delivery O2 Flow Rate FiO2 11/03/17 11:16 91 18 30 11/03/17 09:25 100 18 30 11/03/17 09:23 97 136/88 11/03/17 08:00 102 11/03/17 08:00 30 11/03/17 08:00 98.9 97 16 136/88 100 Mechanical Ventilator 30 98.9 11/03/17 07:25 100 18 30 11/03/17 05:22 89 18 30 11/03/17 04:00 98.2 84 18 132/78 98 Mechanical Ventilator 30 98.2 11/03/17 04:00 102 11/03/17 04:00 30 11/03/17 03:32 107 20 30 11/03/17 00:30 99 18 30 11/03/17 00:00 89 11/03/17 00:00 97.9 78 20 128/79 99 Mechanical Ventilator 30 97.9 11/03/17 00:00 30 11/02/17 23:30 98 19 30 11/02/17 21:30 90 19 30 11/02/17 20:56 99 124/83 11/02/17 20:00 106 11/02/17 20:00 30 11/02/17 20:00 98.9 89 20 122/78 99 Mechanical Ventilator 30 98.9 11/02/17 19:30 94 18 30 11/02/17 17:20 94 19 30 11/02/17 16:02 84 11/02/17 16:00 98.9 90 19 124/83 99 Mechanical Ventilator 30 98.9 11/02/17 16:00 30 11/02/17 15:16 84 18 30 11/02/17 13:14 88 17 30 11/02/17 12:00 98.9 82 16 129/78 99 Mechanical Ventilator 30 98.9 11/02/17 12:00 30 Intake and Output 11/02/17 11/03/17 19:00 07:00 Intake Total 730 ml 980 ml Output Total 30 ml 350 ml Balance 700 ml 630 ml Free Water 150 ml IV Total 100 ml 200 ml Tube Feeding 540 ml 630 ml Other 90 ml Output Urine Total 0 ml 350 ml Stool Total 30 ml 0 ml Laboratory Tests 11/03/17 03:55: White Blood Count 27.7*H, Red Blood Count 2.94L, Hemoglobin 9.1L, Hematocrit 26.4L, Mean Corpuscular Volume 90, Mean Corpuscular Hemoglobin 31.0, Mean Corpuscular Hemoglobin Concent 34.4, Red Cell Distribution Width 14.4, Platelet Count 404, Mean Platelet Volume 5.9L, Neutrophils (%) (Auto) , Lymphocytes (%) ( Auto) , Monocytes (%) (Auto) , Eosinophils (%) (Auto) , Basophils (%) (Auto) , Differential Total Cells Counted 100, Neutrophils % (Manual) 80H, Lymphocytes % (Manual) 10L, Monocytes % (Manual) 10, Eosinophils % (Manual) 0, Basophils % ( Manual) 0, Band Neutrophils 0, Platelet Estimate Adequate, Platelet Morphology Normal, Hypochromasia , Anisocytosis 1+, Prothrombin Time 13.8H, Prothromb Time International Ratio 1.3H, Activated Partial Thromboplast Time 28, Sodium Level 144, Potassium Level 3.8, Chloride Level 107, Carbon Dioxide Level 26, Anion Gap 11, Blood Urea Nitrogen 83H, Creatinine 7.0H, Estimat Glomerular Filtration Rate 9.7, Glucose Level 107H, Calcium Level 7.7L, Phosphorus Level 6.6H, Magnesium Level 2.0, Total Bilirubin 0.5, Aspartate Amino Transf (AST/SGOT) 32, Alanine Aminotransferase (ALT/SGPT) 111H, Alkaline Phosphatase 112, Total Protein 5.5L, Albumin 1.3L, Globulin 4.2, Albumin/Globulin Ratio 0.3L Height (Feet): 5 Height (Inches): 6.00 Weight (Pounds): 213 General Appearance: no apparent distress Objective no other change YVES SINHA Nov 03, 2017 11:58
[2017-11-03] MEDS: Renvela 800mg Pkt NG SCH ×2 (13:00→18:43)
[2017-11-03] MEDS: Lactobacillus-GG tablet GT SCH ×2 (13:00→18:43)
[2017-11-03] MEDS ORDERED: Cathflo Alteplase 2mg Inj INJ ONE ×2 (14:30→15:00)
[2017-11-03] MEDS ORDERED: Tubing IV Secondary IV ONE (15:43)
[2017-11-03] MEDS ORDERED: NS 275ml ONE (15:43)
[2017-11-03] MEDS ORDERED: Sterile Water Irrig 1000ml IRRIG ONE (15:43)
[2017-11-03] MEDS: Dyna-Hex 2% Top Sol 2oz TOPIC SCH (20:17)
[2017-11-04] VITALS (7 sets, daily range): BP systolic 133–159; BP diastolic 89–99
[2017-11-04 05:10] LABS: HEMATOCRIT 23.1 % (42.0-52.0); MEAN CORPUSCULAR VOLUME 90 FL (80-99); PLATELET COUNT 362 K/UL (150-450); RED BLOOD COUNT 2.56 M/UL (4.70-6.10); RED CELL DISTRIBUTION WIDTH 14.8 % (11.6-14.8)
[2017-11-04 05:26] LABS: WHITE BLOOD COUNT 27.6 K/UL (4.8-10.8)
[2017-11-04 05:35] LABS: ALANINE AMINOTRANSFERASE 81 U/L (12-78); ALBUMIN 1.4 G/DL (3.4-5.0); ALBUMIN/GLOBULIN RATIO 0.4 (1.0-2.7); ALKALINE PHOSPHATASE 115 U/L (46-116); ANION GAP 9 mmol/L (5-15); ASPARTATE AMINO TRANSFERASE 28 U/L (15-37); BILIRUBIN,TOTAL 0.5 MG/DL (0.2-1.0); BLOOD UREA NITROGEN 85 mg/dL (7-18); CALCIUM 7.6 MG/DL (8.5-10.1); CARBON DIOXIDE 29 MMOL/L (21-32); CHLORIDE 108 MMOL/L (98-107); CREATININE 7.2 MG/DL (0.55-1.30); POTASSIUM 3.5 MMOL/L (3.5-5.1); SODIUM 145 MMOL/L (136-145)
[2017-11-04] MEDS: Lactobacillus-GG tablet GT SCH ×3 (09:30→17:04)
[2017-11-04] MEDS: Renvela 800mg Pkt NG SCH ×3 (09:30→17:04)
[2017-11-04] MEDS: Vancomycin oral 125mg/2.5ml ORAL SCH ×4 (09:30→20:40)
[2017-11-04] MEDS: Metoprolol 25mg tab GT SCH ×2 (09:31→20:40)
--- NOTE | 2017-11-04 11:18 | Nephrology Progress Note ---
Assessment/Plan Problem List: (1) Acute renal failure (ARF) (2) Respiratory failure (3) Shock liver Assessment JULIA , due to Shock , Hemorrhagic / Septic / C dif colitis Off Pressors- Shock liver resolving High Troponin: [place] Bradycardic - Vfib cardiac arrest 10/26 likely 2ry to hemorrhagic shock (drop Hgb 10.8 to 5) - GIB- Fever, ongoing Leukocytosis, worsening after code E.coli UTI w/ bacteremia Acute hypoxic resp failure- s/p Trach . Plan Plan: had problem with dialysis cath 11/03. Will retry dialysis today add Renvela and Lactobacillus BP stablized start GT feeding HD trial as needed- next 11/03 on C dif treatment protocol monitor urine out put and Renal parameters discussed with RN Subjective ROS Limited/Unobtainable: Yes Objective Objective Last 24 Hour Vital Signs Date Time Temp Pulse Resp B/P (MAP) Pulse Ox O2 Delivery O2 Flow Rate FiO2 11/04/17 11:00 92 20 30 11/04/17 09:31 93 148/97 11/04/17 09:01 93 21 30 11/04/17 08:00 30 11/04/17 08:00 98.1 84 20 151/94 100 Mechanical Ventilator 30 98.1 11/04/17 08:00 84 11/04/17 07:21 82 21 30 11/04/17 05:20 81 18 30 11/04/17 04:00 98.4 98 18 155/97 Mechanical Ventilator 30 98.4 11/04/17 04:00 90 11/04/17 04:00 30 11/04/17 03:22 93 21 30 11/04/17 00:58 87 21 30 11/04/17 00:00 30 11/04/17 00:00 90 11/04/17 00:00 98.5 94 18 148/99 Mechanical Ventilator 30 98.5 11/03/17 22:53 91 21 30 11/03/17 21:16 101 20 30 11/03/17 21:11 112 170/100 11/03/17 20:00 99 11/03/17 20:00 97.0 112 18 170/100 Mechanical Ventilator 30 97.0 11/03/17 20:00 30 11/03/17 19:49 101 20 30 11/03/17 17:00 101 20 30 11/03/17 16:00 90 11/03/17 16:00 30 11/03/17 16:00 98.2 120 20 158/100 Mechanical Ventilator 30 98.2 11/03/17 15:00 96 19 30 11/03/17 14:00 Mechanical Ventilator 30 11/03/17 14:00 98.5 102 20 135/90 Mechanical Ventilator 30 98.5 11/03/17 12:45 99 18 30 11/03/17 12:00 30 11/03/17 12:00 98.2 85 20 134/92 Endotracheal Tube 30 98.2 11/03/17 12:00 99.5 86 18 134/92 99 Mechanical Ventilator 30 99.5 11/03/17 12:00 Mechanical Ventilator 30 11/03/17 12:00 87 Intake and Output 11/03/17 11/04/17 19:00 07:00 Intake Total 1090 ml 840 ml Output Total 150 ml 300 ml Balance 940 ml 540 ml Free Water 250 ml 100 ml IV Total 200 ml Tube Feeding 540 ml 540 ml Other 300 ml Output Urine Total 150 ml 100 ml Stool Total 200 ml Hemodialysis UF 0 ml # Voids 20 Laboratory Tests 11/04/17 03:30: White Blood Count 27.6*H, Red Blood Count 2.56L, Hemoglobin 8.0L, Hematocrit 23.1L, Mean Corpuscular Volume 90, Mean Corpuscular Hemoglobin 31.4H, Mean Corpuscular Hemoglobin Concent 34.9, Red Cell Distribution Width 14.8, Platelet Count 362, Mean Platelet Volume 5.9L, Neutrophils (%) (Auto) , Lymphocytes (%) ( Auto) , Monocytes (%) (Auto) , Eosinophils (%) (Auto) , Basophils (%) (Auto) , Differential Total Cells Counted 100, Neutrophils % (Manual) 83H, Lymphocytes % (Manual) 6L, Monocytes % (Manual) 7, Eosinophils % (Manual) 4H, Basophils % ( Manual) 0, Band Neutrophils 0, Platelet Estimate Adequate, Platelet Morphology Normal, Hypochromasia 1+, Anisocytosis 1+, Sodium Level 145, Potassium Level 3.5 , Chloride Level 108H, Carbon Dioxide Level 29, Anion Gap 9, Blood Urea Nitrogen 85H, Creatinine 7.2H, Estimat Glomerular Filtration Rate 9.5, Glucose Level 112H, Uric Acid 8.3H, Calcium Level 7.6L, Phosphorus Level 7.0H, Magnesium Level 2.0, Total Bilirubin 0.5, Aspartate Amino Transf (AST/SGOT) 28, Alanine Aminotransferase (ALT/SGPT) 81H, Alkaline Phosphatase 115, C-Reactive Protein, Quantitative 8.1H, Pro-B-Type Natriuretic Peptide 1589H, Total Protein 5.2L, Albumin 1.4L, Globulin 3.8, Albumin/Globulin Ratio 0.4L Height (Feet): 5 Height (Inches): 6.00 Weight (Pounds): 231 General Appearance: no apparent distress Respiratory/Chest: decreased breath sounds Abdomen: soft Objective no other change YVES SINHA Nov 04, 2017 11:18
--- NOTE | 2017-11-04 11:39 | Pulmonolgy Critical Care Note ---
Critical Care - Asmt/Plan Problems: (1) Acute renal failure (ARF) (2) Acute respiratory failure (3) Pneumonia (4) Sepsis (5) C. 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 manager - Objective Last 24 Hour Vital Signs Date Time Temp Pulse Resp B/P (MAP) Pulse Ox O2 Delivery O2 Flow Rate FiO2 11/04/17 11:00 92 20 30 11/04/17 09:31 93 148/97 11/04/17 09:01 93 21 30 11/04/17 08:00 30 11/04/17 08:00 98.1 84 20 151/94 100 Mechanical Ventilator 30 98.1 11/04/17 08:00 84 11/04/17 07:21 82 21 30 11/04/17 05:20 81 18 30 11/04/17 04:00 98.4 98 18 155/97 Mechanical Ventilator 30 98.4 11/04/17 04:00 90 11/04/17 04:00 30 11/04/17 03:22 93 21 30 11/04/17 00:58 87 21 30 11/04/17 00:00 30 11/04/17 00:00 90 11/04/17 00:00 98.5 94 18 148/99 Mechanical Ventilator 30 98.5 11/03/17 22:53 91 21 30 11/03/17 21:16 101 20 30 11/03/17 21:11 112 170/100 11/03/17 20:00 99 11/03/17 20:00 97.0 112 18 170/100 Mechanical Ventilator 30 97.0 11/03/17 20:00 30 11/03/17 19:49 101 20 30 11/03/17 17:00 101 20 30 11/03/17 16:00 90 11/03/17 16:00 30 11/03/17 16:00 98.2 120 20 158/100 Mechanical Ventilator 30 98.2 2/24/18 15:00 96 19 30 11/03/17 14:00 Mechanical Ventilator 30 11/03/17 14:00 98.5 102 20 135/90 Mechanical Ventilator 30 98.5 11/03/17 12:45 99 18 30 11/03/17 12:00 30 11/03/17 12:00 98.2 85 20 134/92 Endotracheal Tube 30 98.2 11/03/17 12:00 99.5 86 18 134/92 99 Mechanical Ventilator 30 99.5 11/03/17 12:00 Mechanical Ventilator 30 11/03/17 12:00 87 Status: awake Condition: critical HEENT: atraumatic Lungs: clear Heart: HR/BP unstable, regular Abdomen: non-tender, feeding tube Extremities: no C/C/E Critical Care - Subjective ROS Limited/Unobtainable: No Condition: critical EKG Rhythm: V-Paced FI02: 30 Vent Support Breath Rate: 18 Vent Support Mode: AC Vent Tidal Volume: 550 Sputum Amount: Moderate PEEP: 5.0 PIP: 21 Tube Feeding Amount: 45 I&O: Intake and Output 11/03/17 11/04/17 19:00 07:00 Intake Total 1090 ml 840 ml Output Total 150 ml 300 ml Balance 940 ml 540 ml Free Water 250 ml 100 ml IV Total 200 ml Tube Feeding 540 ml 540 ml Other 300 ml Output Urine Total 150 ml 100 ml Stool Total 200 ml Hemodialysis UF 0 ml # Voids 20 CXR: no change ET-Tube: 8.0 ET Position: 24 Labs: Laboratory Tests Test 11/04/17 03:30 White Blood Count 27.6 K/UL (4.8-10.8) *H Red Blood Count 2.56 M/UL (4.70-6.10) L Hemoglobin 8.0 G/DL (14.2-18.0) L Hematocrit 23.1 % (42.0-52.0) L Mean Corpuscular Volume 90 FL (80-99) Mean Corpuscular Hemoglobin 31.4 PG (27.0-31.0) H Mean Corpuscular Hemoglobin Concent 34.9 G/DL (32.0-36.0) Red Cell Distribution Width 14.8 % (11.6-14.8) Platelet Count 362 K/UL (150-450) Mean Platelet Volume 5.9 FL (6.5-10.1) L Neutrophils (%) (Auto) % (45.0-75.0) Lymphocytes (%) (Auto) % (20.0-45.0) Monocytes (%) (Auto) % (1.0-10.0) Eosinophils (%) (Auto) % (0.0-3.0) Basophils (%) (Auto) % (0.0-2.0) Differential Total Cells Counted 100 Neutrophils % (Manual) 83 % (45-75) H Lymphocytes % (Manual) 6 % (20-45) L Monocytes % (Manual) 7 % (1-10) Eosinophils % (Manual) 4 % (0-3) H Basophils % (Manual) 0 % (0-2) Band Neutrophils 0 % (0-8) Platelet Estimate Adequate Platelet Morphology Normal Hypochromasia 1+ Anisocytosis 1+ Sodium Level 145 MMOL/L (136-145) Potassium Level 3.5 MMOL/L (3.5-5.1) Chloride Level 108 MMOL/L (98-107) H Carbon Dioxide Level 29 MMOL/L (21-32) Anion Gap 9 mmol/L (5-15) Blood Urea Nitrogen 85 mg/dL (7-18) H Creatinine 7.2 MG/DL (0.55-1.30) H Estimat Glomerular Filtration Rate 9.5 mL/min (>60) Glucose Level 112 MG/DL (74-106) H Uric Acid 8.3 MG/DL (2.6-7.2) H Calcium Level 7.6 MG/DL (8.5-10.1) L Phosphorus Level 7.0 MG/DL (2.5-4.9) H Magnesium Level 2.0 MG/DL (1.8-2.4) Total Bilirubin 0.5 MG/DL (0.2-1.0) Aspartate Amino Transf (AST/SGOT) 28 U/L (15-37) Alanine Aminotransferase (ALT/SGPT) 81 U/L (12-78) H Alkaline Phosphatase 115 U/L (46-116) C-Reactive Protein, Quantitative 8.1 mg/dL (0.00-0.90) H Pro-B-Type Natriuretic Peptide 1589 pg/mL (0-125) H Total Protein 5.2 G/DL (6.4-8.2) L Albumin 1.4 G/DL (3.4-5.0) L Globulin 3.8 g/dL Albumin/Globulin Ratio 0.4 (1.0-2.7) L EDDIE COLES Nov 04, 2017 11:39
--- NOTE | 2017-11-04 13:34 | Cardiology Progress Note ---
Assessment/Plan Assessment/Plan no new developments from cardiac stndpoint noted elevated WBC, tranding down Subjective Subjective The patient is unresponsive, moves his eyes, but does not interact Objective Last 24 Hour Vital Signs Date Time Temp Pulse Resp B/P (MAP) Pulse Ox O2 Delivery O2 Flow Rate FiO2 11/04/17 12:30 98.2 91 28 146/94 Mechanical Ventilator 30 98.2 11/04/17 12:30 Mechanical Ventilator 30 11/04/17 12:00 89 11/04/17 12:00 30 11/04/17 11:00 Mechanical Ventilator 30 11/04/17 11:00 92 20 30 11/04/17 11:00 98.6 90 28 148/97 Mechanical Ventilator 30 98.6 11/04/17 09:31 93 148/97 11/04/17 09:01 93 21 30 11/04/17 08:00 30 11/04/17 08:00 98.1 84 20 151/94 100 Mechanical Ventilator 30 98.1 11/04/17 08:00 84 11/04/17 07:21 82 21 30 11/04/17 05:20 81 18 30 11/04/17 04:00 98.4 98 18 155/97 Mechanical Ventilator 30 98.4 11/04/17 04:00 90 11/04/17 04:00 30 11/04/17 03:22 93 21 30 11/04/17 00:58 87 21 30 11/04/17 00:00 30 11/04/17 00:00 90 11/04/17 00:00 98.5 94 18 148/99 Mechanical Ventilator 30 98.5 11/03/17 22:53 91 21 30 11/03/17 21:16 101 20 30 11/03/17 21:11 112 170/100 11/03/17 20:00 99 11/03/17 20:00 97.0 112 18 170/100 Mechanical Ventilator 30 97.0 11/03/17 20:00 30 11/03/17 19:49 101 20 30 11/03/17 17:00 101 20 30 11/03/17 16:00 90 11/03/17 16:00 30 11/03/17 16:00 98.2 120 20 158/100 Mechanical Ventilator 30 98.2 11/03/17 15:00 96 19 30 11/03/17 14:00 Mechanical Ventilator 30 11/03/17 14:00 98.5 102 20 135/90 Mechanical Ventilator 30 98.5 General Appearance: on vent - trach, other - unresponsive EENT: other - divergent gaze Neck: other - trach Rhythm: NSR Cardiovascular: regular rhythm Respiratory/Chest: crackles/rales Abdomen: non tender Intake and Output 11/03/17 11/04/17 19:00 07:00 Intake Total 1090 ml 840 ml Output Total 150 ml 300 ml Balance 940 ml 540 ml Free Water 250 ml 100 ml IV Total 200 ml Tube Feeding 540 ml 540 ml Other 300 ml Output Urine Total 150 ml 100 ml Stool Total 200 ml Hemodialysis UF 0 ml # Voids 20 Laboratory Tests Test 11/04/17 03:30 White Blood Count 27.6 K/UL (4.8-10.8) *H Red Blood Count 2.56 M/UL (4.70-6.10) L Hemoglobin 8.0 G/DL (14.2-18.0) L Hematocrit 23.1 % (42.0-52.0) L Mean Corpuscular Volume 90 FL (80-99) Mean Corpuscular Hemoglobin 31.4 PG (27.0-31.0) H Mean Corpuscular Hemoglobin Concent 34.9 G/DL (32.0-36.0) Red Cell Distribution Width 14.8 % (11.6-14.8) Platelet Count 362 K/UL (150-450) Mean Platelet Volume 5.9 FL (6.5-10.1) L Neutrophils (%) (Auto) % (45.0-75.0) Lymphocytes (%) (Auto) % (20.0-45.0) Monocytes (%) (Auto) % (1.0-10.0) Eosinophils (%) (Auto) % (0.0-3.0) Basophils (%) (Auto) % (0.0-2.0) Differential Total Cells Counted 100 Neutrophils % (Manual) 83 % (45-75) H Lymphocytes % (Manual) 6 % (20-45) L Monocytes % (Manual) 7 % (1-10) Eosinophils % (Manual) 4 % (0-3) H Basophils % (Manual) 0 % (0-2) Band Neutrophils 0 % (0-8) Platelet Estimate Adequate Platelet Morphology Normal Hypochromasia 1+ Anisocytosis 1+ Sodium Level 145 MMOL/L (136-145) Potassium Level 3.5 MMOL/L (3.5-5.1) Chloride Level 108 MMOL/L (98-107) H Carbon Dioxide Level 29 MMOL/L (21-32) Anion Gap 9 mmol/L (5-15) Blood Urea Nitrogen 85 mg/dL (7-18) H Creatinine 7.2 MG/DL (0.55-1.30) H Estimat Glomerular Filtration Rate 9.5 mL/min (>60) Glucose Level 112 MG/DL (74-106) H Uric Acid 8.3 MG/DL (2.6-7.2) H Calcium Level 7.6 MG/DL (8.5-10.1) L Phosphorus Level 7.0 MG/DL (2.5-4.9) H Magnesium Level 2.0 MG/DL (1.8-2.4) Total Bilirubin 0.5 MG/DL (0.2-1.0) Aspartate Amino Transf (AST/SGOT) 28 U/L (15-37) Alanine Aminotransferase (ALT/SGPT) 81 U/L (12-78) H Alkaline Phosphatase 115 U/L (46-116) C-Reactive Protein, Quantitative 8.1 mg/dL (0.00-0.90) H Pro-B-Type Natriuretic Peptide 1589 pg/mL (0-125) H Total Protein 5.2 G/DL (6.4-8.2) L Albumin 1.4 G/DL (3.4-5.0) L Globulin 3.8 g/dL Albumin/Globulin Ratio 0.4 (1.0-2.7) L PIOTR JACKSON Nov 04, 2017 13:34
[2017-11-04] MEDS ORDERED: NS 275ml ONE (16:23)
[2017-11-04] MEDS: Dyna-Hex 2% Top Sol 2oz TOPIC SCH (20:40)
[2017-11-05] VITALS (8 sets, daily range): BP systolic 145–154; BP diastolic 85–94
[2017-11-05 04:03] LABS: HEMATOCRIT 20.3 % (42.0-52.0); MEAN CORPUSCULAR VOLUME 90 FL (80-99); PLATELET COUNT 369 K/UL (150-450); RED BLOOD COUNT 2.25 M/UL (4.70-6.10); RED CELL DISTRIBUTION WIDTH 14.5 % (11.6-14.8)
[2017-11-05 04:15] LABS: WHITE BLOOD COUNT 29.4 K/UL (4.8-10.8)
[2017-11-05 04:34] LABS: ALANINE AMINOTRANSFERASE 59 U/L (12-78); ALBUMIN 1.3 G/DL (3.4-5.0); ALBUMIN/GLOBULIN RATIO 0.3 (1.0-2.7); ALKALINE PHOSPHATASE 115 U/L (46-116); ANION GAP 9 mmol/L (5-15); ASPARTATE AMINO TRANSFERASE 26 U/L (15-37); BILIRUBIN,TOTAL 0.5 MG/DL (0.2-1.0); BLOOD UREA NITROGEN 93 mg/dL (7-18); CALCIUM 7.8 MG/DL (8.5-10.1); CARBON DIOXIDE 29 MMOL/L (21-32); CHLORIDE 107 MMOL/L (98-107); CREATININE 7.5 MG/DL (0.55-1.30); PHOSPHORUS 7.5 MG/DL (2.5-4.9); POTASSIUM 3.5 MMOL/L (3.5-5.1); SODIUM 145 MMOL/L (136-145)
[2017-11-05] MEDS ORDERED: Lidocaine 1% MPF 10mg/ml 5ml INJ ONE (08:30)
[2017-11-05] MEDS ORDERED: Heparin 2000 units/Ns 1000ml IV ONE (08:30)
[2017-11-05] MEDS: Lactobacillus-GG tablet GT SCH ×3 (08:53→18:29)
[2017-11-05] MEDS: Renvela 800mg Pkt NG SCH ×3 (08:53→18:29)
[2017-11-05] MEDS: Metoprolol 25mg tab GT SCH ×2 (08:53→23:51)
[2017-11-05] MEDS: Vancomycin oral 125mg/2.5ml ORAL SCH ×4 (08:53→23:52)
--- NOTE | 2017-11-05 11:29 | GI Progress Note ---
Assessment/Plan Problems: (1) Dysphagia ICD Codes: R13.10 - Dysphagia, unspecified SNOMED: 75784825, 458905849 (2) Dementia ICD Codes: F03.90 - Unspecified dementia without behavioral disturbance SNOMED: 03555494 (3) PEG (percutaneous endoscopic gastrostomy) adjustment/replacement/removal ICD Codes: Z43.1 - Encounter for attention to gastrostomy SNOMED: 398858065, 346686914 (4) CVA, old, hemiparesis ICD Codes: I69.359 - Hemiplegia and hemiparesis following cerebral infarction affecting unspecified side SNOMED: 53872119, 10972502, [id number] Status: unchanged Status Narrative Discussed with Dr. Campos. Assessment/Plan Distended small bowel. Ileus versus obstruction. Rectal fecal impaction. >> resolved, repeat KUB shows no acute process. s/p EGD and hemostasis on Sunday stable H&H past few days >> plan repeat EGD if needed cdiff positive >> dc ppi, H2B BID GTFs today per RD to goal GT site care daily/prn prn transfusions abx poor prognosis fu labs Subjective Subjective limited Objective Last 24 Hour Vital Signs Date Time Temp Pulse Resp B/P (MAP) Pulse Ox O2 Delivery O2 Flow Rate FiO2 11/05/17 09:18 78 18 30 11/05/17 08:53 88 147/94 11/05/17 08:00 30 11/05/17 08:00 97.5 88 20 147/94 98 Mechanical Ventilator 30 97.5 11/05/17 08:00 82 11/05/17 07:03 95 19 30 11/05/17 05:19 101 26 30 11/05/17 04:00 96 11/05/17 04:00 97.9 94 21 148/85 100 Mechanical Ventilator 30 97.9 11/05/17 04:00 30 11/05/17 03:20 93 20 30 11/05/17 00:49 103 26 30 11/05/17 00:00 30 11/05/17 00:00 81 11/05/17 00:00 98.2 80 18 147/85 98 Mechanical Ventilator 30 98.2 11/04/17 23:11 94 22 30 11/04/17 21:02 98 20 30 11/04/17 20:40 90 159/91 11/04/17 20:00 30 2/25/18 20:00 97 11/04/17 20:00 98.4 90 15 159/91 100 Mechanical Ventilator 30 98.4 11/04/17 19:05 105 23 30 11/04/17 16:56 91 22 30 11/04/17 16:00 97 11/04/17 16:00 30 11/04/17 16:00 97.5 88 20 133/89 98 Mechanical Ventilator 30 97.5 11/04/17 15:24 94 19 30 11/04/17 15:10 68 17 30 11/04/17 13:06 88 24 30 11/04/17 12:30 98.2 91 28 146/94 Mechanical Ventilator 30 98.2 11/04/17 12:30 Mechanical Ventilator 30 11/04/17 12:00 89 11/04/17 12:00 30 Intake and Output 11/04/17 11/05/17 19:00 07:00 Intake Total 745 ml 850 ml Output Total 575 ml 1200 ml Balance 170 ml -350 ml Free Water 150 ml 60 ml IV Total 100 ml 200 ml Tube Feeding 495 ml 540 ml Other 50 ml Output Urine Total 475 ml 1000 ml Stool Total 100 ml 200 ml Hemodialysis UF 0 ml # Bowel Movements 1 Laboratory Tests Test 11/05/17 03:55 11/05/17 08:10 White Blood Count 29.4 K/UL (4.8-10.8) *H Red Blood Count 2.25 M/UL (4.70-6.10) L Hemoglobin 7.0 G/DL (14.2-18.0) L Hematocrit 20.3 % (42.0-52.0) L Mean Corpuscular Volume 90 FL (80-99) Mean Corpuscular Hemoglobin 31.3 PG (27.0-31.0) H Mean Corpuscular Hemoglobin Concent 34.7 G/DL (32.0-36.0) Red Cell Distribution Width 14.5 % (11.6-14.8) Platelet Count 369 K/UL (150-450) Mean Platelet Volume 6.1 FL (6.5-10.1) L Neutrophils (%) (Auto) % (45.0-75.0) Lymphocytes (%) (Auto) % (20.0-45.0) Monocytes (%) (Auto) % (1.0-10.0) Eosinophils (%) (Auto) % (0.0-3.0) Basophils (%) (Auto) % (0.0-2.0) Differential Total Cells Counted 100 Neutrophils % (Manual) 89 % (45-75) H Lymphocytes % (Manual) 3 % (20-45) L Monocytes % (Manual) 8 % (1-10) Eosinophils % (Manual) 0 % (0-3) Basophils % (Manual) 0 % (0-2) Band Neutrophils 0 % (0-8) Platelet Estimate Adequate Platelet Morphology Normal Hypochromasia 3+ Anisocytosis 1+ Spherocytes 1+ Sodium Level 145 MMOL/L (136-145) Potassium Level 3.5 MMOL/L (3.5-5.1) Chloride Level 107 MMOL/L (98-107) Carbon Dioxide Level 29 MMOL/L (21-32) Anion Gap 9 mmol/L (5-15) Blood Urea Nitrogen 93 mg/dL (7-18) H Creatinine 7.5 MG/DL (0.55-1.30) H Estimat Glomerular Filtration Rate 9.0 mL/min (>60) Glucose Level 115 MG/DL (74-106) H Calcium Level 7.8 MG/DL (8.5-10.1) L Phosphorus Level 7.5 MG/DL (2.5-4.9) H Magnesium Level 2.1 MG/DL (1.8-2.4) Total Bilirubin 0.5 MG/DL (0.2-1.0) Aspartate Amino Transf (AST/SGOT) 26 U/L (15-37) Alanine Aminotransferase (ALT/SGPT) 59 U/L (12-78) Alkaline Phosphatase 115 U/L (46-116) Total Protein 5.3 G/DL (6.4-8.2) L Albumin 1.3 G/DL (3.4-5.0) L Globulin 4.0 g/dL Albumin/Globulin Ratio 0.3 (1.0-2.7) L Arterial Blood pH 7.480 (7.350-7.450) Arterial Blood Partial Pressure CO2 34.6 mmHg (35.0-45.0) L Arterial Blood Partial Pressure O2 81.4 mmHg (75.0-100.0) Arterial Blood HCO3 25.3 mmol/L (22.0-26.0) Arterial Blood Oxygen Saturation 94.5 % (92.0-98.0) Arterial Blood Base Excess 1.8 Dipak Test Positive Height (Feet): 5 Height (Inches): 6.00 Weight (Pounds): 248 General Appearance: no apparent distress Cardiovascular: normal rate Respiratory/Chest: other - trach Abdominal Exam: normal bowel sounds, non tender, soft, GT site - c/d/i Extremities: non-tender Laura Lucas N.P. Nov 05, 2017 11:29
--- NOTE | 2017-11-05 11:29 | Infectious Diseases Prog Note ---
Assessment/Plan Assessment/Plan C Diff +ve, diarrhea mild improvement Fever, SP Leukocytosis, overall improving -CXR: 10/30 : Slightly increased hazy opacity left lung base and obscuration of left hemidiaphragm, may reflect increased infiltrates and/or pleural fluid E.coli UTI w/ bacteremia ; s/p Rx -REnal US: Limited exam. No definite hydronephrosis. Empty bladder, containing a Cervantes catheter. Suspicion for Flu despite rapid test (+URI symptoms, sick contacts); s/p Rx ? Pneum -CXR 10/26: There is right basilar and right perihilar atelectasis and possibly minimal consolidation. Left lung and bilateral pleural spaces remain clear. -Influenza neg Acute hypoxic resp failure- intubated (10/20) 12/18 KUB : Distended small bowel. Ileus versus obstruction. SP Trach 10/23 SP cardiac arrest 10/26 SP hemorrhagic shock (drop Hgb 10.8 to 5)- 10/12 GIB- transaminitis due to shock improving JULIA Lactic acidosis, resolved UGI bleed SP EGD 10/18 and 10/26 Path: H Pylori Neg CVA with hemiplegia HTN cataract dysphagia Hx of fall CAD/[place] CVA/TIA dementia seizure disorder Plan: -Continue Flagyl and oral Vanco d# /-21 10/30 SP Meropenem d# 5 - 10/29 SP IV Vanco # 10 - 10/26 SP Zosyn #6 - 10/21 SP Ceftriaxone 2 g qd d# 11 - 10/17 SP empiric Tamiflu #6/5 -/ SP IV Vancomcyin #5, Meropenm #3 -10/13 SP Cefepime #3 -Monitor CBC/BMP, temperatures; -aspiration precautions - vent Support - Subjective Allergies: Coded Allergies: NO KNOWN ALLERGIES (Unverified Allergy, Unknown, 09/03/15) Subjective afebrile Objective Vital Signs Last 24 Hour Vital Signs Date Time Temp Pulse Resp B/P (MAP) Pulse Ox O2 Delivery O2 Flow Rate FiO2 11/05/17 11:23 88 18 30 11/05/17 09:18 78 18 30 11/05/17 08:53 88 147/94 11/05/17 08:00 30 11/05/17 08:00 97.5 88 20 147/94 98 Mechanical Ventilator 30 97.5 11/05/17 08:00 82 11/05/17 07:03 95 19 30 11/05/17 05:19 101 26 30 11/05/17 04:00 96 11/05/17 04:00 97.9 94 21 148/85 100 Mechanical Ventilator 30 97.9 11/05/17 04:00 30 11/05/17 03:20 93 20 30 11/05/17 00:49 103 26 30 11/05/17 00:00 30 11/05/17 00:00 81 11/05/17 00:00 98.2 80 18 147/85 98 Mechanical Ventilator 30 98.2 11/04/17 23:11 94 22 30 11/04/17 21:02 98 20 30 11/04/17 20:40 90 159/91 11/04/17 20:00 30 11/04/17 20:00 97 11/04/17 20:00 98.4 90 15 159/91 100 Mechanical Ventilator 30 98.4 11/04/17 19:05 105 23 30 11/04/17 16:56 91 22 30 11/04/17 16:00 97 11/04/17 16:00 30 11/04/17 16:00 97.5 88 20 133/89 98 Mechanical Ventilator 30 97.5 11/04/17 15:24 94 19 30 11/04/17 15:10 68 17 30 11/04/17 13:06 88 24 30 11/04/17 12:30 98.2 91 28 146/94 Mechanical Ventilator 30 98.2 11/04/17 12:30 Mechanical Ventilator 30 11/04/17 12:00 89 11/04/17 12:00 30 Height (Feet): 5 Height (Inches): 6.00 Weight (Pounds): 248 HEENT: anicteric Respiratory/Chest: no respiratory distress Cardiovascular: regular rhythm Abdomen: non distended Laboratory Tests Test 11/05/17 03:55 11/05/17 08:10 White Blood Count 29.4 K/UL (4.8-10.8) *H Red Blood Count 2.25 M/UL (4.70-6.10) L Hemoglobin 7.0 G/DL (14.2-18.0) L Hematocrit 20.3 % (42.0-52.0) L Mean Corpuscular Volume 90 FL (80-99) Mean Corpuscular Hemoglobin 31.3 PG (27.0-31.0) H Mean Corpuscular Hemoglobin Concent 34.7 G/DL (32.0-36.0) Red Cell Distribution Width 14.5 % (11.6-14.8) Platelet Count 369 K/UL (150-450) Mean Platelet Volume 6.1 FL (6.5-10.1) L Neutrophils (%) (Auto) % (45.0-75.0) Lymphocytes (%) (Auto) % (20.0-45.0) Monocytes (%) (Auto) % (1.0-10.0) Eosinophils (%) (Auto) % (0.0-3.0) Basophils (%) (Auto) % (0.0-2.0) Differential Total Cells Counted 100 Neutrophils % (Manual) 89 % (45-75) H Lymphocytes % (Manual) 3 % (20-45) L Monocytes % (Manual) 8 % (1-10) Eosinophils % (Manual) 0 % (0-3) Basophils % (Manual) 0 % (0-2) Band Neutrophils 0 % (0-8) Platelet Estimate Adequate Platelet Morphology Normal Hypochromasia 3+ Anisocytosis 1+ Spherocytes 1+ Sodium Level 145 MMOL/L (136-145) Potassium Level 3.5 MMOL/L (3.5-5.1) Chloride Level 107 MMOL/L (98-107) Carbon Dioxide Level 29 MMOL/L (21-32) Anion Gap 9 mmol/L (5-15) Blood Urea Nitrogen 93 mg/dL (7-18) H Creatinine 7.5 MG/DL (0.55-1.30) H Estimat Glomerular Filtration Rate 9.0 mL/min (>60) Glucose Level 115 MG/DL (74-106) H Calcium Level 7.8 MG/DL (8.5-10.1) L Phosphorus Level 7.5 MG/DL (2.5-4.9) H Magnesium Level 2.1 MG/DL (1.8-2.4) Total Bilirubin 0.5 MG/DL (0.2-1.0) Aspartate Amino Transf (AST/SGOT) 26 U/L (15-37) Alanine Aminotransferase (ALT/SGPT) 59 U/L (12-78) Alkaline Phosphatase 115 U/L (46-116) Total Protein 5.3 G/DL (6.4-8.2) L Albumin 1.3 G/DL (3.4-5.0) L Globulin 4.0 g/dL Albumin/Globulin Ratio 0.3 (1.0-2.7) L Arterial Blood pH 7.480 (7.350-7.450) Arterial Blood Partial Pressure CO2 34.6 mmHg (35.0-45.0) L Arterial Blood Partial Pressure O2 81.4 mmHg (75.0-100.0) Arterial Blood HCO3 25.3 mmol/L (22.0-26.0) Arterial Blood Oxygen Saturation 94.5 % (92.0-98.0) Arterial Blood Base Excess 1.8 Dipak Test Positive Current Medications Medications (Trade) Dose Ordered Sig/Olvin Route PRN Reason Start Time Stop Time Status Last Admin Dose Admin Acetaminophen (Tylenol) 650 mg Q4H PRN RECTAL Mild Pain (Pain Scale 1-3) 10/30/17 21:00 11/20/17 20:59 Chlorhexidine Gluconate (Pamela-Hex 2%) 1 applic DAILY@2000 TOPIC 10/31/17 22:00 11/23/17 21:59 11/04/17 20:40 Famotidine (Pepcid I.v.) 20 mg Q24HRS IVP 10/30/17 21:30 11/29/17 21:29 11/04/17 20:40 Lactobacillus Acidophilus (Culturelle) 1 tab THREE TIMES A DAY GT 11/03/17 13:00 12/03/17 12:59 11/05/17 08:53 Metoclopramide HCl (Reglan) 5 mg Q6H PRN GT Irrectractable Nausea/Vomiting 10/30/17 21:00 11/29/17 20:59 Metoprolol Tartrate (Lopressor) 25 mg Q12HR GT 10/30/17 21:30 11/29/17 21:29 11/05/17 08:53 Metronidazole 100 ml @ 100 mls/hr Q8HR IV 10/30/17 22:00 11/09/17 23:59 11/05/17 05:01 Nitroglycerin (Ntg) 0.4 mg Q5MIN X 3 DOSES PRN SL Prn Chest Pain 10/30/17 20:45 11/14/17 17:09 Ondansetron HCl (Zofran) 4 mg Q6H PRN IVP Nausea & Vomiting 10/30/17 21:00 11/29/17 20:59 Sevelamer Carbonate (Renvela) 1,600 mg THREE TIMES A DAY NG 11/04/17 13:00 12/04/17 12:59 11/05/17 08:53 Vancomycin HCl (Vancomycin) 125 mg FOUR TIMES A DAY ORAL 10/30/17 21:30 11/09/17 23:59 11/05/17 08:53 FAUSTINO AGARWAL M.D. Nov 05, 2017 11:29
--- NOTE | 2017-11-05 11:33 | Pulmonolgy Critical Care Note ---
Critical Care - Asmt/Plan Problems: (1) Acute renal failure (ARF) (2) Acute respiratory failure (3) Pneumonia (4) Sepsis (5) C. difficile colitis (6) Feeding by G-tube (7) Epileptic seizure, generalized Respiratory: monitor respiratory rate, adjust FIO2 Cardiac: continue to monitor HR/BP Renal: F/U I&O, keep IV fluid Infectious Disease: check cultures Gastrointestinal: continue feedings/current rate Endocrine: monitor blood sugar, check HgA1C Hematologic: transfuse if hgb<8.5 Neurologic: PRN Ativan, PRN Morphine, keep patient comfortable Affect: PRN ativan Time Spent (Minutes): 40 Notes Reviewed: [employer], cardio Discussed with: nurses, consultants Critical Care - Objective Last 24 Hour Vital Signs Date Time Temp Pulse Resp B/P (MAP) Pulse Ox O2 Delivery O2 Flow Rate FiO2 11/05/17 11:23 88 18 30 11/05/17 09:18 78 18 30 11/05/17 08:53 88 147/94 11/05/17 08:00 30 11/05/17 08:00 97.5 88 20 147/94 98 Mechanical Ventilator 30 97.5 11/05/17 08:00 82 11/05/17 07:03 95 19 30 11/05/17 05:19 101 26 30 11/05/17 04:00 96 11/05/17 04:00 97.9 94 21 148/85 100 Mechanical Ventilator 30 97.9 11/05/17 04:00 30 11/05/17 03:20 93 20 30 11/05/17 00:49 103 26 30 11/05/17 00:00 30 11/05/17 00:00 81 11/05/17 00:00 98.2 80 18 147/85 98 Mechanical Ventilator 30 98.2 11/04/17 23:11 94 22 30 11/04/17 21:02 98 20 30 11/04/17 20:40 90 159/91 11/04/17 20:00 30 11/04/17 20:00 97 11/04/17 20:00 98.4 90 15 159/91 100 Mechanical Ventilator 30 98.4 11/04/17 19:05 105 23 30 11/04/17 16:56 91 22 30 11/04/17 16:00 97 11/04/17 16:00 30 11/04/17 16:00 97.5 88 20 133/89 98 Mechanical Ventilator 30 97.5 11/04/17 15:24 94 19 30 11/04/17 15:10 68 17 30 11/04/17 13:06 88 24 30 11/04/17 12:30 98.2 91 28 146/94 Mechanical Ventilator 30 98.2 11/04/17 12:30 Mechanical Ventilator 30 11/04/17 12:00 89 11/04/17 12:00 30 Status: awake Condition: critical HEENT: atraumatic Neck: full ROM Heart: HR/BP stable, HR/BP unstable Abdomen: soft, non-tender, active bowel sounds Extremities: no C/C/E, edema Critical Care - Subjective ROS Limited/Unobtainable: No ICU Day: 25 Condition: critical EKG Rhythm: Sinus Rhythm FI02: 30 Vent Support Breath Rate: 18 Vent Support Mode: AC Vent Tidal Volume: 550 Sputum Amount: Small PEEP: 5.0 PIP: 17 Tube Feeding Amount: 45 I&O: Intake and Output 11/04/17 11/05/17 19:00 07:00 Intake Total 745 ml 850 ml Output Total 575 ml 1200 ml Balance 170 ml -350 ml Free Water 150 ml 60 ml IV Total 100 ml 200 ml Tube Feeding 495 ml 540 ml Other 50 ml Output Urine Total 475 ml 1000 ml Stool Total 100 ml 200 ml Hemodialysis UF 0 ml # Bowel Movements 1 CXR: bibasilar infiltrate ET-Tube: 8.0 ET Position: 24 Labs: Laboratory Tests Test 11/05/17 03:55 11/05/17 08:10 White Blood Count 29.4 K/UL (4.8-10.8) *H Red Blood Count 2.25 M/UL (4.70-6.10) L Hemoglobin 7.0 G/DL (14.2-18.0) L Hematocrit 20.3 % (42.0-52.0) L Mean Corpuscular Volume 90 FL (80-99) Mean Corpuscular Hemoglobin 31.3 PG (27.0-31.0) H Mean Corpuscular Hemoglobin Concent 34.7 G/DL (32.0-36.0) Red Cell Distribution Width 14.5 % (11.6-14.8) Platelet Count 369 K/UL (150-450) Mean Platelet Volume 6.1 FL (6.5-10.1) L Neutrophils (%) (Auto) % (45.0-75.0) Lymphocytes (%) (Auto) % (20.0-45.0) Monocytes (%) (Auto) % (1.0-10.0) Eosinophils (%) (Auto) % (0.0-3.0) Basophils (%) (Auto) % (0.0-2.0) Differential Total Cells Counted 100 Neutrophils % (Manual) 89 % (45-75) H Lymphocytes % (Manual) 3 % (20-45) L Monocytes % (Manual) 8 % (1-10) Eosinophils % (Manual) 0 % (0-3) Basophils % (Manual) 0 % (0-2) Band Neutrophils 0 % (0-8) Platelet Estimate Adequate Platelet Morphology Normal Hypochromasia 3+ Anisocytosis 1+ Spherocytes 1+ Sodium Level 145 MMOL/L (136-145) Potassium Level 3.5 MMOL/L (3.5-5.1) Chloride Level 107 MMOL/L (98-107) Carbon Dioxide Level 29 MMOL/L (21-32) Anion Gap 9 mmol/L (5-15) Blood Urea Nitrogen 93 mg/dL (7-18) H Creatinine 7.5 MG/DL (0.55-1.30) H Estimat Glomerular Filtration Rate 9.0 mL/min (>60) Glucose Level 115 MG/DL (74-106) H Calcium Level 7.8 MG/DL (8.5-10.1) L Phosphorus Level 7.5 MG/DL (2.5-4.9) H Magnesium Level 2.1 MG/DL (1.8-2.4) Total Bilirubin 0.5 MG/DL (0.2-1.0) Aspartate Amino Transf (AST/SGOT) 26 U/L (15-37) Alanine Aminotransferase (ALT/SGPT) 59 U/L (12-78) Alkaline Phosphatase 115 U/L (46-116) Total Protein 5.3 G/DL (6.4-8.2) L Albumin 1.3 G/DL (3.4-5.0) L Globulin 4.0 g/dL Albumin/Globulin Ratio 0.3 (1.0-2.7) L Arterial Blood pH 7.480 (7.350-7.450) Arterial Blood Partial Pressure CO2 34.6 mmHg (35.0-45.0) L Arterial Blood Partial Pressure O2 81.4 mmHg (75.0-100.0) Arterial Blood HCO3 25.3 mmol/L (22.0-26.0) Arterial Blood Oxygen Saturation 94.5 % (92.0-98.0) Arterial Blood Base Excess 1.8 Dipak Test Positive EDDIE COLES Nov 05, 2017 11:32
--- NOTE | 2017-11-05 11:40 | Nephrology Progress Note ---
Assessment/Plan Problem List: (1) Acute renal failure (ARF) (2) Respiratory failure (3) Shock liver Assessment JULIA , due to Shock , Hemorrhagic / Septic / C dif colitis Off Pressors- Shock liver resolving High Troponin: MN Bradycardic - Vfib cardiac arrest 10/26 likely 2ry to hemorrhagic shock (drop Hgb 10.8 to 5) - GIB- Fever, ongoing Leukocytosis, worsening after code E.coli UTI w/ bacteremia Acute hypoxic resp failure- s/p Trach . Plan Plan: had problem with dialysis cath 11/03. Will retry dialysis today after change of Cath add Renvela and Lactobacillus BP stablized start GT feeding HD trial as needed- next 11/05 on C dif treatment protocol monitor urine out put and Renal parameters discussed with RN Subjective ROS Limited/Unobtainable: Yes Objective Objective Last 24 Hour Vital Signs Date Time Temp Pulse Resp B/P (MAP) Pulse Ox O2 Delivery O2 Flow Rate FiO2 11/05/17 11:23 88 18 30 11/05/17 09:18 78 18 30 11/05/17 08:53 88 147/94 11/05/17 08:00 30 11/05/17 08:00 97.5 88 20 147/94 98 Mechanical Ventilator 30 97.5 11/05/17 08:00 82 11/05/17 07:03 95 19 30 11/05/17 05:19 101 26 30 11/05/17 04:00 96 11/05/17 04:00 97.9 94 21 148/85 100 Mechanical Ventilator 30 97.9 11/05/17 04:00 30 11/05/17 03:20 93 20 30 11/05/17 00:49 103 26 30 11/05/17 00:00 30 11/05/17 00:00 81 11/05/17 00:00 98.2 80 18 147/85 98 Mechanical Ventilator 30 98.2 11/04/17 23:11 94 22 30 11/04/17 21:02 98 20 30 11/04/17 20:40 90 159/91 11/04/17 20:00 30 11/04/17 20:00 97 11/04/17 20:00 98.4 90 15 159/91 100 Mechanical Ventilator 30 98.4 11/04/17 19:05 105 23 30 11/04/17 16:56 91 22 30 11/04/17 16:00 97 2/25/18 16:00 30 11/04/17 16:00 97.5 88 20 133/89 98 Mechanical Ventilator 30 97.5 11/04/17 15:24 94 19 30 11/04/17 15:10 68 17 30 11/04/17 13:06 88 24 30 11/04/17 12:30 98.2 91 28 146/94 Mechanical Ventilator 30 98.2 11/04/17 12:30 Mechanical Ventilator 30 11/04/17 12:00 89 11/04/17 12:00 30 Intake and Output 11/04/17 11/05/17 19:00 07:00 Intake Total 745 ml 850 ml Output Total 575 ml 1200 ml Balance 170 ml -350 ml Free Water 150 ml 60 ml IV Total 100 ml 200 ml Tube Feeding 495 ml 540 ml Other 50 ml Output Urine Total 475 ml 1000 ml Stool Total 100 ml 200 ml Hemodialysis UF 0 ml # Bowel Movements 1 Laboratory Tests 11/05/17 03:55: White Blood Count 29.4*H, Red Blood Count 2.25L, Hemoglobin 7.0L, Hematocrit 20.3L, Mean Corpuscular Volume 90, Mean Corpuscular Hemoglobin 31.3H, Mean Corpuscular Hemoglobin Concent 34.7, Red Cell Distribution Width 14.5, Platelet Count 369, Mean Platelet Volume 6.1L, Neutrophils (%) (Auto) , Lymphocytes (%) ( Auto) , Monocytes (%) (Auto) , Eosinophils (%) (Auto) , Basophils (%) (Auto) , Differential Total Cells Counted 100, Neutrophils % (Manual) 89H, Lymphocytes % (Manual) 3L, Monocytes % (Manual) 8, Eosinophils % (Manual) 0, Basophils % ( Manual) 0, Band Neutrophils 0, Platelet Estimate Adequate, Platelet Morphology Normal, Hypochromasia 3+, Anisocytosis 1+, Spherocytes 1+, Sodium Level 145, Potassium Level 3.5, Chloride Level 107, Carbon Dioxide Level 29, Anion Gap 9, Blood Urea Nitrogen 93H, Creatinine 7.5H, Estimat Glomerular Filtration Rate 9.0 , Glucose Level 115H, Calcium Level 7.8L, Phosphorus Level 7.5H, Magnesium Level 2.1, Total Bilirubin 0.5, Aspartate Amino Transf (AST/SGOT) 26, Alanine Aminotransferase (ALT/SGPT) 59, Alkaline Phosphatase 115, Total Protein 5.3L, Albumin 1.3L, Globulin 4.0, Albumin/Globulin Ratio 0.3L 11/05/17 08:10: Arterial Blood pH 7.480H, Arterial Blood Partial Pressure CO2 34.6L, Arterial Blood Partial Pressure O2 81.4, Arterial Blood HCO3 25.3, Arterial Blood Oxygen Saturation 94.5, Arterial Blood Base Excess 1.8, Dipak Test Positive Height (Feet): 5 Height (Inches): 6.00 Weight (Pounds): 248 General Appearance: no apparent distress Objective no other change YVES SINHA Nov 05, 2017 11:40
--- NOTE | 2017-11-05 12:51 | Diagnostic Imaging Report ---
Indication: Dyspnea Comparison: 10/30/2017 A single view chest radiograph was obtained. Findings: Lung volumes are low. There is mild congestion present which may be slightly improved. Tracheostomy and subclavian line again noted. There is a probable left pleural effusion. IMPRESSION: Interstitial edema suspected. There may be slight improvement since the previous day.
--- NOTE | 2017-11-05 14:55 | Diagnostic Imaging Report ---
Indication: Patient requires hemodialysis. Findings: After the indications, procedure, risks, complications, and alternatives of the procedure were explained, written informed consent was obtained. The neck was prepped with alcohol. All elements of maximal sterile barrier technique were followed including usage of a cap, mask, sterile gown, sterile gloves, hand hygiene and a large sterile sheet. 1% lidocaine was used to anesthetize the skin. Sonographic evaluation was performed demonstrating a patent and compressible jugular vein. Access was obtained under real-time ultrasound guidance using an 18 gauge needle and a digital image was saved in archive. An 0.035 wire was then advanced into the vein. Needle exchanged for a dilator. A temporary hemodialysis catheter was then advanced over the wire. Wire was removed. Catheter was secured to the skin using 2-0 Prolene suture. Both ports aspirate and flush easily. The procedure was performed at the bedside. Final position of the catheter by xray which shows the catheter in good position with the tip in SVC. Impression: Successful placement of right jugular hemodialysis catheter.
--- NOTE | 2017-11-05 20:45 | Cardiology Progress Note ---
Assessment/Plan Assessment/Plan 1. Cardiopulmonary arrest on three separate occasions. 2. Massive gastrointestinal bleed. 3. Encephalopathy. 4. Abnormal liver function tests, likely shock liver. 5. Acute renal failure. 6. Anemia. 7. NSTEMI type2 related to cardiopulmonary resuscitation and renal insufficiency. 8. Chronic respiratory failure. 9. History of cerebrovascular accident. 10. c diff hgb min lower onthe vent dialysis labs noted tele sinus Subjective ROS Limited/Unobtainable: Yes Objective Last 24 Hour Vital Signs Date Time Temp Pulse Resp B/P (MAP) Pulse Ox O2 Delivery O2 Flow Rate FiO2 11/05/17 20:00 97.7 108 27 154/93 Mechanical Ventilator 30 97.7 11/05/17 19:00 Mechanical Ventilator 30 11/05/17 19:00 97.7 99 28 148/94 Mechanical Ventilator 30 97.7 11/05/17 18:46 92 22 30 11/05/17 17:02 97 21 30 11/05/17 16:00 30 11/05/17 16:00 96 11/05/17 16:00 97.7 91 18 145/87 100 Mechanical Ventilator 30 97.7 11/05/17 15:06 98 21 30 11/05/17 12:42 89 21 30 11/05/17 12:00 89 11/05/17 12:00 97.3 90 24 146/90 99 Mechanical Ventilator 30 97.3 11/05/17 12:00 30 11/05/17 11:23 88 18 30 11/05/17 09:18 78 18 30 11/05/17 08:53 88 147/94 11/05/17 08:00 30 11/05/17 08:00 97.5 88 20 147/94 98 Mechanical Ventilator 30 97.5 11/05/17 08:00 82 11/05/17 07:03 95 19 30 11/05/17 05:19 101 26 30 11/05/17 04:00 96 11/05/17 04:00 97.9 94 21 148/85 100 Mechanical Ventilator 30 97.9 11/05/17 04:00 30 11/05/17 03:20 93 20 30 11/05/17 00:49 103 26 30 11/05/17 00:00 30 11/05/17 00:00 81 11/05/17 00:00 98.2 80 18 147/85 98 Mechanical Ventilator 30 98.2 2/25/18 23:11 94 22 30 11/04/17 21:02 98 20 30 General Appearance: on vent, patient on isolation, other - on dailysis is awake Intake and Output 11/04/17 11/05/17 19:00 07:00 Intake Total 745 ml 850 ml Output Total 575 ml 1200 ml Balance 170 ml -350 ml Free Water 150 ml 60 ml IV Total 100 ml 200 ml Tube Feeding 495 ml 540 ml Other 50 ml Output Urine Total 475 ml 1000 ml Stool Total 100 ml 200 ml Hemodialysis UF 0 ml # Bowel Movements 1 Laboratory Tests Test 11/05/17 03:55 11/05/17 08:10 White Blood Count 29.4 K/UL (4.8-10.8) *H Red Blood Count 2.25 M/UL (4.70-6.10) L Hemoglobin 7.0 G/DL (14.2-18.0) L Hematocrit 20.3 % (42.0-52.0) L Mean Corpuscular Volume 90 FL (80-99) Mean Corpuscular Hemoglobin 31.3 PG (27.0-31.0) H Mean Corpuscular Hemoglobin Concent 34.7 G/DL (32.0-36.0) Red Cell Distribution Width 14.5 % (11.6-14.8) Platelet Count 369 K/UL (150-450) Mean Platelet Volume 6.1 FL (6.5-10.1) L Neutrophils (%) (Auto) % (45.0-75.0) Lymphocytes (%) (Auto) % (20.0-45.0) Monocytes (%) (Auto) % (1.0-10.0) Eosinophils (%) (Auto) % (0.0-3.0) Basophils (%) (Auto) % (0.0-2.0) Differential Total Cells Counted 100 Neutrophils % (Manual) 89 % (45-75) H Lymphocytes % (Manual) 3 % (20-45) L Monocytes % (Manual) 8 % (1-10) Eosinophils % (Manual) 0 % (0-3) Basophils % (Manual) 0 % (0-2) Band Neutrophils 0 % (0-8) Platelet Estimate Adequate Platelet Morphology Normal Hypochromasia 3+ Anisocytosis 1+ Spherocytes 1+ Sodium Level 145 MMOL/L (136-145) Potassium Level 3.5 MMOL/L (3.5-5.1) Chloride Level 107 MMOL/L (98-107) Carbon Dioxide Level 29 MMOL/L (21-32) Anion Gap 9 mmol/L (5-15) Blood Urea Nitrogen 93 mg/dL (7-18) H Creatinine 7.5 MG/DL (0.55-1.30) H Estimat Glomerular Filtration Rate 9.0 mL/min (>60) Glucose Level 115 MG/DL (74-106) H Calcium Level 7.8 MG/DL (8.5-10.1) L Phosphorus Level 7.5 MG/DL (2.5-4.9) H Magnesium Level 2.1 MG/DL (1.8-2.4) Total Bilirubin 0.5 MG/DL (0.2-1.0) Aspartate Amino Transf (AST/SGOT) 26 U/L (15-37) Alanine Aminotransferase (ALT/SGPT) 59 U/L (12-78) Alkaline Phosphatase 115 U/L (46-116) Total Protein 5.3 G/DL (6.4-8.2) L Albumin 1.3 G/DL (3.4-5.0) L Globulin 4.0 g/dL Albumin/Globulin Ratio 0.3 (1.0-2.7) L Arterial Blood pH 7.480 (7.350-7.450) Arterial Blood Partial Pressure CO2 34.6 mmHg (35.0-45.0) L Arterial Blood Partial Pressure O2 81.4 mmHg (75.0-100.0) Arterial Blood HCO3 25.3 mmol/L (22.0-26.0) Arterial Blood Oxygen Saturation 94.5 % (92.0-98.0) Arterial Blood Base Excess 1.8 Dipak Test Positive CHRISTEN LOVE Nov 05, 2017 20:45
[2017-11-05] MEDS: Dyna-Hex 2% Top Sol 2oz TOPIC SCH (23:52)
[2017-11-06] VITALS: BP 151/92
[2017-11-06] MEDS: LORazepam Inj 2mg/ml 1ml IV PRN (02:20)
[2017-11-06 04:00] VITALS: BP 134/85
[2017-11-06 04:50] LABS: HEMATOCRIT 16.8 % (42.0-52.0); MEAN CORPUSCULAR VOLUME 90 FL (80-99); PLATELET COUNT 292 K/UL (150-450); RED BLOOD COUNT 1.86 M/UL (4.70-6.10); RED CELL DISTRIBUTION WIDTH 14.8 % (11.6-14.8)
[2017-11-06 05:28] LABS: ALANINE AMINOTRANSFERASE 45 U/L (12-78); ALBUMIN 1.3 G/DL (3.4-5.0); ALBUMIN/GLOBULIN RATIO 0.4 (1.0-2.7); ALKALINE PHOSPHATASE 96 U/L (46-116); ANION GAP 4 mmol/L (5-15); ASPARTATE AMINO TRANSFERASE 26 U/L (15-37); BILIRUBIN,TOTAL 0.5 MG/DL (0.2-1.0); BLOOD UREA NITROGEN 55 mg/dL (7-18); CALCIUM 7.6 MG/DL (8.5-10.1); CARBON DIOXIDE 35 MMOL/L (21-32); CHLORIDE 106 MMOL/L (98-107); HEMOGLOBIN 5.7 G/DL (14.2-18.0); PHOSPHORUS 4.9 MG/DL (2.5-4.9); POTASSIUM 3.2 MMOL/L (3.5-5.1); SODIUM 145 MMOL/L (136-145); WHITE BLOOD COUNT 25.6 K/UL (4.8-10.8)
[2017-11-06 06:58] LABS: HEMATOCRIT 17.8 % (42.0-52.0); MEAN CORPUSCULAR VOLUME 90 FL (80-99); PLATELET COUNT 332 K/UL (150-450); RED BLOOD COUNT 1.97 M/UL (4.70-6.10); RED CELL DISTRIBUTION WIDTH 15.2 % (11.6-14.8)
[2017-11-06 07:01] LABS: HEMOGLOBIN 6.1 G/DL (14.2-18.0); WHITE BLOOD COUNT 25.8 K/UL (4.8-10.8)
[2017-11-06 08:00] VITALS: BP 121/77
--- NOTE | 2017-11-06 08:41 | Infectious Diseases Prog Note ---
Assessment/Plan Assessment/Plan A C Diff +ve, diarrhea mild improvement Fever, SP Leukocytosis, overall improving -CXR: 10/30 : Slightly increased hazy opacity left lung base and obscuration of left hemidiaphragm, may reflect increased infiltrates and/or pleural fluid E.coli UTI w/ bacteremia ; s/p Rx -REnal US: Limited exam. No definite hydronephrosis. Empty bladder, containing a Cervantes catheter. Suspicion for Flu despite rapid test (+URI symptoms, sick contacts); s/p Rx ? Pneum -CXR 10/26: There is right basilar and right perihilar atelectasis and possibly minimal consolidation. Left lung and bilateral pleural spaces remain clear. -Influenza neg Acute hypoxic resp failure- intubated (10/20) , SP Trach 10/23 12/18 KUB : Distended small bowel. Ileus versus obstruction. SP cardiac arrest 10/26 SP hemorrhagic shock (drop Hgb 10.8 to 5)- 10/12 GIB- transaminitis due to shock improving JULIA on HD , HD cath Lactic acidosis, resolved UGI bleed / Anemia SP EGD 10/18 and 10/26 Path: H Pylori Neg CVA with hemiplegia HTN cataract dysphagia Hx of fall CAD/OK CVA/TIA dementia seizure disorder Plan: -Continue Flagyl and oral Vanco d# /-21 10/30 SP Meropenem d# 5 - 10/29 SP IV Vanco # 10 - 10/26 SP Zosyn #6 - 10/21 SP Ceftriaxone 2 g qd d# 11 - 10/17 SP empiric Tamiflu #6/5 -/ SP IV Vancomcyin #5, Meropenm #3 -10/13 SP Cefepime #3 -Monitor CBC/BMP, temperatures; -aspiration precautions - vent Support - Subjective Allergies: Coded Allergies: NO KNOWN ALLERGIES (Unverified Allergy, Unknown, 09/03/15) Subjective afebrile Objective Vital Signs Last 24 Hour Vital Signs Date Time Temp Pulse Resp B/P (MAP) Pulse Ox O2 Delivery O2 Flow Rate FiO2 11/06/17 06:42 86 18 50 11/06/17 05:00 89 18 50 11/06/17 04:00 85 11/06/17 04:00 97.5 89 20 134/85 Mechanical Ventilator 50 97.5 11/06/17 02:31 92 27 80 11/06/17 02:00 50 11/06/17 00:40 111 30 80 11/06/17 00:10 80 11/06/17 00:00 107 11/06/17 00:00 98.1 110 30 151/92 Mechanical Ventilator 50 98.1 11/05/17 23:51 93 174/87 11/05/17 23:27 100 23 30 11/05/17 22:10 Mechanical Ventilator 30 11/05/17 22:10 98.3 106 28 153/87 Mechanical Ventilator 30 98.3 11/05/17 20:54 105 24 30 11/05/17 20:00 97.7 108 27 154/93 Mechanical Ventilator 30 97.7 11/05/17 20:00 30 11/05/17 19:19 110 11/05/17 19:00 Mechanical Ventilator 30 11/05/17 19:00 97.7 99 28 148/94 Mechanical Ventilator 30 97.7 11/05/17 18:46 92 22 30 11/05/17 17:02 97 21 30 11/05/17 16:00 30 11/05/17 16:00 96 11/05/17 16:00 97.7 91 18 145/87 100 Mechanical Ventilator 30 97.7 11/05/17 15:06 98 21 30 11/05/17 12:42 89 21 30 11/05/17 12:00 89 11/05/17 12:00 97.3 90 24 146/90 99 Mechanical Ventilator 30 97.3 11/05/17 12:00 30 11/05/17 11:23 88 18 30 11/05/17 09:18 78 18 30 11/05/17 08:53 88 147/94 Height (Feet): 5 Height (Inches): 6.00 Weight (Pounds): 244 HEENT: mucous membranes moist Respiratory/Chest: no respiratory distress Cardiovascular: normal rate Abdomen: soft, non tender Laboratory Tests Test 11/06/17 03:25 11/06/17 06:42 White Blood Count 25.6 K/UL (4.8-10.8) *H 25.8 K/UL (4.8-10.8) *H Red Blood Count 1.86 M/UL (4.70-6.10) L 1.97 M/UL (4.70-6.10) L Hemoglobin 5.7 G/DL (14.2-18.0) *L 6.1 G/DL (14.2-18.0) *L Hematocrit 16.8 % (42.0-52.0) L 17.8 % (42.0-52.0) L Mean Corpuscular Volume 90 FL (80-99) 90 FL (80-99) Mean Corpuscular Hemoglobin 30.8 PG (27.0-31.0) 31.1 PG (27.0-31.0) H Mean Corpuscular Hemoglobin Concent 34.2 G/DL (32.0-36.0) 34.5 G/DL (32.0-36.0) Red Cell Distribution Width 14.8 % (11.6-14.8) 15.2 % (11.6-14.8) H Platelet Count 292 K/UL (150-450) 332 K/UL (150-450) Mean Platelet Volume 6.2 FL (6.5-10.1) L 6.2 FL (6.5-10.1) L Neutrophils (%) (Auto) % (45.0-75.0) % (45.0-75.0) Lymphocytes (%) (Auto) % (20.0-45.0) % (20.0-45.0) Monocytes (%) (Auto) % (1.0-10.0) % (1.0-10.0) Eosinophils (%) (Auto) % (0.0-3.0) % (0.0-3.0) Basophils (%) (Auto) % (0.0-2.0) % (0.0-2.0) Differential Total Cells Counted 100 100 Neutrophils % (Manual) 91 % (45-75) H 82 % (45-75) H Lymphocytes % (Manual) 4 % (20-45) L 4 % (20-45) L Monocytes % (Manual) 4 % (1-10) 11 % (1-10) H Eosinophils % (Manual) 1 % (0-3) 2 % (0-3) Basophils % (Manual) 0 % (0-2) 1 % (0-2) Band Neutrophils 0 % (0-8) 0 % (0-8) Platelet Estimate Adequate Adequate Platelet Morphology Normal Normal Hypochromasia 4+ 4+ Anisocytosis 1+ 1+ Spherocytes 2+ 2+ Erythrocyte Sedimentation Rate 92 MM/HR (0-20) H 97 MM/HR (0-20) H Sodium Level 145 MMOL/L (136-145) Potassium Level 3.2 MMOL/L (3.5-5.1) L Chloride Level 106 MMOL/L (98-107) Carbon Dioxide Level 35 MMOL/L (21-32) H Anion Gap 4 mmol/L (5-15) L Blood Urea Nitrogen 55 mg/dL (7-18) H Creatinine 5.0 MG/DL (0.55-1.30) H Estimat Glomerular Filtration Rate 14.4 mL/min (>60) Glucose Level 98 MG/DL (74-106) Calcium Level 7.6 MG/DL (8.5-10.1) L Phosphorus Level 4.9 MG/DL (2.5-4.9) Magnesium Level 1.8 MG/DL (1.8-2.4) Total Bilirubin 0.5 MG/DL (0.2-1.0) Aspartate Amino Transf (AST/SGOT) 26 U/L (15-37) Alanine Aminotransferase (ALT/SGPT) 45 U/L (12-78) Alkaline Phosphatase 96 U/L (46-116) Total Protein 5.0 G/DL (6.4-8.2) L Albumin 1.3 G/DL (3.4-5.0) L Globulin 3.7 g/dL Albumin/Globulin Ratio 0.4 (1.0-2.7) L Current Medications Medications (Trade) Dose Ordered Sig/Olvin Route PRN Reason Start Time Stop Time Status Last Admin Dose Admin Acetaminophen (Tylenol) 650 mg Q4H PRN RECTAL Mild Pain (Pain Scale 1-3) 10/30/17 21:00 11/20/17 20:59 Chlorhexidine Gluconate (Pamela-Hex 2%) 1 applic DAILY@1999 TOPIC 10/31/17 22:00 11/23/17 21:59 11/05/17 23:52 Famotidine (Pepcid I.v.) 20 mg Q24HRS IVP 10/30/17 21:30 11/29/17 21:29 11/05/17 23:51 Lactobacillus Acidophilus (Culturelle) 1 tab THREE TIMES A DAY GT 11/03/17 13:00 12/03/17 12:59 11/05/17 18:29 Lorazepam (Ativan 2mg/ml 1ml) 2 mg Q4H PRN IV For Anxiety 11/05/17 20:45 11/12/17 20:44 11/06/17 02:20 Metoclopramide HCl (Reglan) 5 mg Q6H PRN GT Irrectractable Nausea/Vomiting 10/30/17 21:00 11/29/17 20:59 Metoprolol Tartrate (Lopressor) 25 mg Q12HR GT 10/30/17 21:30 11/29/17 21:29 11/05/17 23:51 Metronidazole 100 ml @ 100 mls/hr Q8HR IV 10/30/17 22:00 11/09/17 23:59 11/06/17 06:18 Nitroglycerin (Ntg) 0.4 mg Q5MIN X 3 DOSES PRN SL Prn Chest Pain 10/30/17 20:45 11/14/17 17:09 Ondansetron HCl (Zofran) 4 mg Q6H PRN IVP Nausea & Vomiting 10/30/17 21:00 11/29/17 20:59 Sevelamer Carbonate (Renvela) 1,600 mg THREE TIMES A DAY NG 11/04/17 13:00 12/04/17 12:59 11/05/17 18:29 Vancomycin HCl (Vancomycin) 125 mg FOUR TIMES A DAY ORAL 10/30/17 21:30 11/09/17 23:59 11/05/17 23:52 FAUSTINO AGARWAL M.D. Nov 06, 2017 08:41
[2017-11-06] MEDS: Metoprolol 25mg tab GT SCH ×2 (09:21→21:05)
[2017-11-06] MEDS: Lactobacillus-GG tablet GT SCH ×3 (09:21→17:27)
[2017-11-06] MEDS: Vancomycin oral 125mg/2.5ml ORAL SCH ×4 (09:22→21:05)
[2017-11-06] MEDS: Renvela 800mg Pkt NG SCH ×3 (09:22→17:27)
--- NOTE | 2017-11-06 10:01 | Pulmonolgy Critical Care Note ---
Critical Care - Asmt/Plan Problems: (1) Acute renal failure (ARF) (2) Acute respiratory failure (3) Pneumonia (4) Sepsis (5) C. 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 - Objective Last 24 Hour Vital Signs Date Time Temp Pulse Resp B/P (MAP) Pulse Ox O2 Delivery O2 Flow Rate FiO2 11/06/17 09:21 86 134/85 11/06/17 08:32 87 18 50 11/06/17 06:42 86 18 50 11/06/17 05:00 89 18 50 11/06/17 04:00 85 11/06/17 04:00 97.5 89 20 134/85 Mechanical Ventilator 50 97.5 11/06/17 02:31 92 27 80 11/06/17 02:00 50 11/06/17 00:40 111 30 80 11/06/17 00:10 80 11/06/17 00:00 107 11/06/17 00:00 98.1 110 30 151/92 Mechanical Ventilator 50 98.1 11/05/17 23:51 93 174/87 11/05/17 23:27 100 23 30 11/05/17 22:10 Mechanical Ventilator 30 11/05/17 22:10 98.3 106 28 153/87 Mechanical Ventilator 30 98.3 11/05/17 20:54 105 24 30 11/05/17 20:00 97.7 108 27 154/93 Mechanical Ventilator 30 97.7 11/05/17 20:00 30 11/05/17 19:19 110 11/05/17 19:00 Mechanical Ventilator 30 11/05/17 19:00 97.7 99 28 148/94 Mechanical Ventilator 30 97.7 11/05/17 18:46 92 22 30 11/05/17 17:02 97 21 30 11/05/17 16:00 30 11/05/17 16:00 96 11/05/17 16:00 97.7 91 18 145/87 100 Mechanical Ventilator 30 97.7 11/05/17 15:06 98 21 30 11/05/17 12:42 89 21 30 11/05/17 12:00 89 11/05/17 12:00 97.3 90 24 146/90 99 Mechanical Ventilator 30 97.3 11/05/17 12:00 30 11/05/17 11:23 88 18 30 Status: awake Condition: critical HEENT: atraumatic, normocephalic Neck: full ROM Lungs: clear Heart: HR/BP stable Abdomen: soft, active bowel sounds, feeding tube Extremities: no C/C/E Decubiti: location, stage Critical Care - Subjective ROS Limited/Unobtainable: Yes Interval Events: new HD access was inserted yesterday Condition: critical EKG Rhythm: Sinus Rhythm FI02: 50 Vent Support Breath Rate: 18 Vent Support Mode: AC Vent Tidal Volume: 550 Sputum Amount: Small PEEP: 5.0 PIP: 23 Tube Feeding Amount: 45 I&O: Intake and Output 11/05/17 11/06/17 19:00 07:00 Intake Total 790 ml 890 ml Output Total 1000 ml 100 ml Balance -210 ml 790 ml Free Water 250 ml IV Total 100 ml 100 ml Tube Feeding 540 ml 540 ml Other 150 ml Output Urine Total 1000 ml Stool Total 100 ml Hemodialysis UF 0 ml # Bowel Movements 100 CXR: no changes ET-Tube: 8.0 ET Position: 24 Labs: Laboratory Tests Test 11/06/17 03:25 11/06/17 06:42 White Blood Count 25.6 K/UL (4.8-10.8) *H 25.8 K/UL (4.8-10.8) *H Red Blood Count 1.86 M/UL (4.70-6.10) L 1.97 M/UL (4.70-6.10) L Hemoglobin 5.7 G/DL (14.2-18.0) *L 6.1 G/DL (14.2-18.0) *L Hematocrit 16.8 % (42.0-52.0) L 17.8 % (42.0-52.0) L Mean Corpuscular Volume 90 FL (80-99) 90 FL (80-99) Mean Corpuscular Hemoglobin 30.8 PG (27.0-31.0) 31.1 PG (27.0-31.0) H Mean Corpuscular Hemoglobin Concent 34.2 G/DL (32.0-36.0) 34.5 G/DL (32.0-36.0) Red Cell Distribution Width 14.8 % (11.6-14.8) 15.2 % (11.6-14.8) H Platelet Count 292 K/UL (150-450) 332 K/UL (150-450) Mean Platelet Volume 6.2 FL (6.5-10.1) L 6.2 FL (6.5-10.1) L Neutrophils (%) (Auto) % (45.0-75.0) % (45.0-75.0) Lymphocytes (%) (Auto) % (20.0-45.0) % (20.0-45.0) Monocytes (%) (Auto) % (1.0-10.0) % (1.0-10.0) Eosinophils (%) (Auto) % (0.0-3.0) % (0.0-3.0) Basophils (%) (Auto) % (0.0-2.0) % (0.0-2.0) Differential Total Cells Counted 100 100 Neutrophils % (Manual) 91 % (45-75) H 82 % (45-75) H Lymphocytes % (Manual) 4 % (20-45) L 4 % (20-45) L Monocytes % (Manual) 4 % (1-10) 11 % (1-10) H Eosinophils % (Manual) 1 % (0-3) 2 % (0-3) Basophils % (Manual) 0 % (0-2) 1 % (0-2) Band Neutrophils 0 % (0-8) 0 % (0-8) Platelet Estimate Adequate Adequate Platelet Morphology Normal Normal Hypochromasia 4+ 4+ Anisocytosis 1+ 1+ Spherocytes 2+ 2+ Erythrocyte Sedimentation Rate 92 MM/HR (0-20) H 97 MM/HR (0-20) H Sodium Level 145 MMOL/L (136-145) Potassium Level 3.2 MMOL/L (3.5-5.1) L Chloride Level 106 MMOL/L (98-107) Carbon Dioxide Level 35 MMOL/L (21-32) H Anion Gap 4 mmol/L (5-15) L Blood Urea Nitrogen 55 mg/dL (7-18) H Creatinine 5.0 MG/DL (0.55-1.30) H Estimat Glomerular Filtration Rate 14.4 mL/min (>60) Glucose Level 98 MG/DL (74-106) Calcium Level 7.6 MG/DL (8.5-10.1) L Phosphorus Level 4.9 MG/DL (2.5-4.9) Magnesium Level 1.8 MG/DL (1.8-2.4) Total Bilirubin 0.5 MG/DL (0.2-1.0) Aspartate Amino Transf (AST/SGOT) 26 U/L (15-37) Alanine Aminotransferase (ALT/SGPT) 45 U/L (12-78) Alkaline Phosphatase 96 U/L (46-116) Total Protein 5.0 G/DL (6.4-8.2) L Albumin 1.3 G/DL (3.4-5.0) L Globulin 3.7 g/dL Albumin/Globulin Ratio 0.4 (1.0-2.7) L EDDIE COLES Nov 06, 2017 10:01
--- NOTE | 2017-11-06 10:50 | Wound Care Consultation ---
Wound Assessment Wound Assessment #1: Wound Number: 1 Wound Present on Admission: No New Wound: Yes Status Change of Wound: No Wound Location Body Site Modif: left, lower, medial Wound Location Body Site: leg Wound Type: blister - open blister Roger Test: Does not Roger Wound Thickness: Partial Thickness Wound Length: 7.0 Wound Width: 5.5 Wound Depth: less than 0.1 Percent of Wound [place]/Red: 100 Wound Drainage Description: Serosanguineous Wound Drainage Amount: Scant Wound Drainage Odor: None/Absent Tissue Surrounding Wound: Erythemic Wound General Appearance: Reddened, Draining Wound Assessment #2: Wound Number: 2 Wound Present on Admission: No New Wound: Yes Status Change of Wound: No Wound Location Body Site: abdomen Wound Type: blister - scattered open blister Roger Test: Does not Roger Percent of Wound [place]/Red: 100 Wound Drainage Description: Serosanguineous Wound Drainage Amount: Scant Wound Drainage Odor: None/Absent Tissue Surrounding Wound: Intact Wound General Appearance: Reddened, Draining Wound Assessment #3: Wound Number: 3 Wound Present on Admission: Yes New Wound: No Status Change of Wound: No Wound Location Body Site Modif: right, upper Wound Location Body Site: thigh Wound Type: blister - open and intact blister Roger Test: Does not Roger Wound Thickness: Partial Thickness Percent of Wound [place]/Red: 100 Wound Drainage Description: Serosanguineous Wound Drainage Amount: Scant Wound Drainage Odor: None/Absent Tissue Surrounding Wound: Intact Wound General Appearance: Reddened Wound Assessment #4: Wound Number: 4 Wound Present on Admission: No New Wound: Yes Status Change of Wound: No Wound Location Body Site Modif: left, medial, dorsal Wound Location Body Site: foot Wound Type: pressure ulcer Roger Test: Does not Roger Pressure Ulcer Stage: Deep Tissue Injury Wound Thickness: Full Thickness Wound Length: 1.5 Wound Width: 1.0 Wound Depth: utd Percent of Wound Purple/Maroon: 100 Wound Drainage Amount: None Wound Drainage Odor: None/Absent Tissue Surrounding Wound: Intact Wound General Appearance: Reddened - purple/maroon Wound Comment #1 Right lateral malleolus SDTI pressure ulcer. Skin still intact #2 Left anterior lower leg open wound. Etiology unknown. with dry scabs. Good progress noted #3 Right dorsal foot dry scab. Still intact #4 Open blister on left medial lower leg #5 Abdominal area scattered open blisters #6 Right upper thigh area with open and intact blisters #7 Left medial dorsal foot DTI pressure ulcer Reassessed this Pt. New wounds noted. will cont to monitor and will follow protocol order for treatment. No deterioration noted on wounds that Pt admitted with . Cont the same wound care treatment and recommendation Recommendation -Local wound care per protocol -Keep clean and dry -Optimize nutrition -Turn and reposition -Heel protector on both heels -Offload both heels -Low air loss mattress -Assess and f/u accordingly for any changes LUISA LOERA RN Nov 06, 2017 10:50
[2017-11-06 12:00] VITALS: BP 131/78
--- NOTE | 2017-11-06 13:32 | GI Progress Note ---
Assessment/Plan Problems: (1) Dysphagia ICD Codes: R13.10 - Dysphagia, unspecified SNOMED: 50382154, 638567930 (2) Dementia ICD Codes: F03.90 - Unspecified dementia without behavioral disturbance SNOMED: 67419636 (3) PEG (percutaneous endoscopic gastrostomy) adjustment/replacement/removal ICD Codes: Z43.1 - Encounter for attention to gastrostomy SNOMED: 029307480, 014278365 (4) CVA, old, hemiparesis ICD Codes: I69.359 - Hemiplegia and hemiparesis following cerebral infarction affecting unspecified side SNOMED: 13509304, 36879410, [id number] Status: not improved, unchanged Status Narrative Discussed with Dr. Campos. Assessment/Plan Distended small bowel. Ileus versus obstruction. Rectal fecal impaction. >> resolved, repeat KUB shows no acute process. s/p EGD and hemostasis cdiff positive >> dc ppi, H2B BID drop in Hgb today, 1 unit transfused >> gastric lavage performed by RN with no evidence of gastric bleed cont GTFs per RD GT site care BID/prn abx poor prognosis fu labs Subjective Subjective limited Objective Last 24 Hour Vital Signs Date Time Temp Pulse Resp B/P (MAP) Pulse Ox O2 Delivery O2 Flow Rate FiO2 11/06/17 13:16 91 18 50 11/06/17 12:00 97.9 89 18 131/78 97 Mechanical Ventilator 50 97.9 11/06/17 12:00 30 11/06/17 11:08 84 20 50 11/06/17 09:21 86 134/85 11/06/17 08:32 87 18 50 11/06/17 08:00 30 11/06/17 08:00 98.2 79 18 121/77 96 Mechanical Ventilator 50 98.2 11/06/17 08:00 93 11/06/17 06:42 86 18 50 11/06/17 05:00 89 18 50 11/06/17 04:00 85 11/06/17 04:00 97.5 89 20 134/85 Mechanical Ventilator 50 97.5 11/06/17 02:31 92 27 80 11/06/17 02:00 50 11/06/17 00:40 111 30 80 11/06/17 00:10 80 11/06/17 00:00 107 11/06/17 00:00 98.1 110 30 151/92 Mechanical Ventilator 50 98.1 11/05/17 23:51 93 174/87 11/05/17 23:27 100 23 30 11/05/17 22:10 Mechanical Ventilator 30 11/05/17 22:10 98.3 106 28 153/87 Mechanical Ventilator 30 98.3 11/05/17 20:54 105 24 30 11/05/17 20:00 97.7 108 27 154/93 Mechanical Ventilator 30 97.7 11/05/17 20:00 30 11/05/17 19:19 110 11/05/17 19:00 Mechanical Ventilator 30 11/05/17 19:00 97.7 99 28 148/94 Mechanical Ventilator 30 97.7 11/05/17 18:46 92 22 30 11/05/17 17:02 97 21 30 11/05/17 16:00 30 11/05/17 16:00 96 11/05/17 16:00 97.7 91 18 145/87 100 Mechanical Ventilator 30 97.7 11/05/17 15:06 98 21 30 Intake and Output 11/05/17 11/06/17 19:00 07:00 Intake Total 790 ml 890 ml Output Total 1000 ml 100 ml Balance -210 ml 790 ml Free Water 250 ml IV Total 100 ml 100 ml Tube Feeding 540 ml 540 ml Other 150 ml Output Urine Total 1000 ml Stool Total 100 ml Hemodialysis UF 0 ml # Bowel Movements 100 Laboratory Tests Test 11/06/17 03:25 11/06/17 06:42 White Blood Count 25.6 K/UL (4.8-10.8) *H 25.8 K/UL (4.8-10.8) *H Red Blood Count 1.86 M/UL (4.70-6.10) L 1.97 M/UL (4.70-6.10) L Hemoglobin 5.7 G/DL (14.2-18.0) *L 6.1 G/DL (14.2-18.0) *L Hematocrit 16.8 % (42.0-52.0) L 17.8 % (42.0-52.0) L Mean Corpuscular Volume 90 FL (80-99) 90 FL (80-99) Mean Corpuscular Hemoglobin 30.8 PG (27.0-31.0) 31.1 PG (27.0-31.0) H Mean Corpuscular Hemoglobin Concent 34.2 G/DL (32.0-36.0) 34.5 G/DL (32.0-36.0) Red Cell Distribution Width 14.8 % (11.6-14.8) 15.2 % (11.6-14.8) H Platelet Count 292 K/UL (150-450) 332 K/UL (150-450) Mean Platelet Volume 6.2 FL (6.5-10.1) L 6.2 FL (6.5-10.1) L Neutrophils (%) (Auto) % (45.0-75.0) % (45.0-75.0) Lymphocytes (%) (Auto) % (20.0-45.0) % (20.0-45.0) Monocytes (%) (Auto) % (1.0-10.0) % (1.0-10.0) Eosinophils (%) (Auto) % (0.0-3.0) % (0.0-3.0) Basophils (%) (Auto) % (0.0-2.0) % (0.0-2.0) Differential Total Cells Counted 100 100 Neutrophils % (Manual) 91 % (45-75) H 82 % (45-75) H Lymphocytes % (Manual) 4 % (20-45) L 4 % (20-45) L Monocytes % (Manual) 4 % (1-10) 11 % (1-10) H Eosinophils % (Manual) 1 % (0-3) 2 % (0-3) Basophils % (Manual) 0 % (0-2) 1 % (0-2) Band Neutrophils 0 % (0-8) 0 % (0-8) Platelet Estimate Adequate Adequate Platelet Morphology Normal Normal Hypochromasia 4+ 4+ Anisocytosis 1+ 1+ Spherocytes 2+ 2+ Erythrocyte Sedimentation Rate 92 MM/HR (0-20) H 97 MM/HR (0-20) H Sodium Level 145 MMOL/L (136-145) Potassium Level 3.2 MMOL/L (3.5-5.1) L Chloride Level 106 MMOL/L (98-107) Carbon Dioxide Level 35 MMOL/L (21-32) H Anion Gap 4 mmol/L (5-15) L Blood Urea Nitrogen 55 mg/dL (7-18) H Creatinine 5.0 MG/DL (0.55-1.30) H Estimat Glomerular Filtration Rate 14.4 mL/min (>60) Glucose Level 98 MG/DL (74-106) Calcium Level 7.6 MG/DL (8.5-10.1) L Phosphorus Level 4.9 MG/DL (2.5-4.9) Magnesium Level 1.8 MG/DL (1.8-2.4) Total Bilirubin 0.5 MG/DL (0.2-1.0) Aspartate Amino Transf (AST/SGOT) 26 U/L (15-37) Alanine Aminotransferase (ALT/SGPT) 45 U/L (12-78) Alkaline Phosphatase 96 U/L (46-116) Total Protein 5.0 G/DL (6.4-8.2) L Albumin 1.3 G/DL (3.4-5.0) L Globulin 3.7 g/dL Albumin/Globulin Ratio 0.4 (1.0-2.7) L Height (Feet): 5 Height (Inches): 6.00 Weight (Pounds): 244 General Appearance: no apparent distress Cardiovascular: normal rate Respiratory/Chest: other - trach to vent Abdominal Exam: normal bowel sounds, non tender, soft, GT site - dressing changed Extremities: non-tender Laura Lucas N.P. Nov 06, 2017 13:32
--- NOTE | 2017-11-06 14:42 | Nephrology Progress Note ---
Assessment/Plan Problem List: (1) Acute renal failure (ARF) (2) Respiratory failure (3) Shock liver Assessment JULIA , due to Shock , Hemorrhagic / Septic / C dif colitis worsenning anemia Off Pressors- Shock liver resolving High Troponin: SD Bradycardic - Vfib cardiac arrest 10/26 likely 2ry to hemorrhagic shock (drop Hgb 10.8 to 5) - GIB- Fever, ongoing Leukocytosis, worsening after code E.coli UTI w/ bacteremia Acute hypoxic resp failure- s/p Trach . Plan Plan: dialyse 11/05 has new cath right chest right groin cath removed being transfused add Renvela and Lactobacillus BP stablized start GT feeding HD trial as needed- on C dif treatment protocol monitor urine out put and Renal parameters discussed with RN Subjective ROS Limited/Unobtainable: Yes Objective Objective Last 24 Hour Vital Signs Date Time Temp Pulse Resp B/P (MAP) Pulse Ox O2 Delivery O2 Flow Rate FiO2 11/06/17 13:16 91 18 50 11/06/17 12:03 99 11/06/17 12:00 97.9 89 18 131/78 97 Mechanical Ventilator 50 97.9 11/06/17 12:00 30 11/06/17 11:08 84 20 50 11/06/17 09:21 86 134/85 11/06/17 08:32 87 18 50 11/06/17 08:00 30 11/06/17 08:00 98.2 79 18 121/77 96 Mechanical Ventilator 50 98.2 11/06/17 08:00 93 11/06/17 06:42 86 18 50 11/06/17 05:00 89 18 50 11/06/17 04:00 85 11/06/17 04:00 97.5 89 20 134/85 Mechanical Ventilator 50 97.5 11/06/17 02:31 92 27 80 11/06/17 02:00 50 11/06/17 00:40 111 30 80 11/06/17 00:10 80 11/06/17 00:00 107 11/06/17 00:00 98.1 110 30 151/92 Mechanical Ventilator 50 98.1 11/05/17 23:51 93 174/87 11/05/17 23:27 100 23 30 11/05/17 22:10 Mechanical Ventilator 30 11/05/17 22:10 98.3 106 28 153/87 Mechanical Ventilator 30 98.3 11/05/17 20:54 105 24 30 11/05/17 20:00 97.7 108 27 154/93 Mechanical Ventilator 30 97.7 11/05/17 20:00 30 11/05/17 19:19 110 11/05/17 19:00 Mechanical Ventilator 30 11/05/17 19:00 97.7 99 28 148/94 Mechanical Ventilator 30 97.7 11/05/17 18:46 92 22 30 11/05/17 17:02 97 21 30 11/05/17 16:00 30 11/05/17 16:00 96 11/05/17 16:00 97.7 91 18 145/87 100 Mechanical Ventilator 30 97.7 11/05/17 15:06 98 21 30 Intake and Output 11/05/17 11/06/17 19:00 07:00 Intake Total 790 ml 890 ml Output Total 1000 ml 100 ml Balance -210 ml 790 ml Free Water 250 ml IV Total 100 ml 100 ml Tube Feeding 540 ml 540 ml Other 150 ml Output Urine Total 1000 ml Stool Total 100 ml Hemodialysis UF 0 ml # Bowel Movements 100 Laboratory Tests 11/06/17 03:25: White Blood Count 25.6*H, Red Blood Count 1.86L, Hemoglobin 5.7*L, Hematocrit 16.8L, Mean Corpuscular Volume 90, Mean Corpuscular Hemoglobin 30.8, Mean Corpuscular Hemoglobin Concent 34.2, Red Cell Distribution Width 14.8, Platelet Count 292, Mean Platelet Volume 6.2L, Neutrophils (%) (Auto) , Lymphocytes (%) ( Auto) , Monocytes (%) (Auto) , Eosinophils (%) (Auto) , Basophils (%) (Auto) , Differential Total Cells Counted 100, Neutrophils % (Manual) 91H, Lymphocytes % (Manual) 4L, Monocytes % (Manual) 4, Eosinophils % (Manual) 1, Basophils % ( Manual) 0, Band Neutrophils 0, Platelet Estimate Adequate, Platelet Morphology Normal, Hypochromasia 4+, Anisocytosis 1+, Spherocytes 2+, Erythrocyte Sedimentation Rate 92H, Sodium Level 145, Potassium Level 3.2L, Chloride Level 106, Carbon Dioxide Level 35H, Anion Gap 4L, Blood Urea Nitrogen 55H, Creatinine 5.0H, Estimat Glomerular Filtration Rate 14.4, Glucose Level 98, Calcium Level 7.6L, Phosphorus Level 4.9, Magnesium Level 1.8, Total Bilirubin 0.5, Aspartate Amino Transf (AST/SGOT) 26, Alanine Aminotransferase (ALT/SGPT) 45, Alkaline Phosphatase 96, Total Protein 5.0L, Albumin 1.3L, Globulin 3.7, Albumin/Globulin Ratio 0.4L 11/06/17 06:42: White Blood Count 25.8*H, Red Blood Count 1.97L, Hemoglobin 6.1*L, Hematocrit 17.8L, Mean Corpuscular Volume 90, Mean Corpuscular Hemoglobin 31.1H, Mean Corpuscular Hemoglobin Concent 34.5, Red Cell Distribution Width 15.2H, Platelet Count 332, Mean Platelet Volume 6.2L, Neutrophils (%) (Auto) , Lymphocytes (%) (Auto) , Monocytes (%) (Auto) , Eosinophils (%) (Auto) , Basophils (%) (Auto) , Differential Total Cells Counted 100, Neutrophils % ( Manual) 82H, Lymphocytes % (Manual) 4L, Monocytes % (Manual) 11H, Eosinophils % (Manual) 2, Basophils % (Manual) 1, Band Neutrophils 0, Platelet Estimate Adequate, Platelet Morphology Normal, Hypochromasia 4+, Anisocytosis 1+, Spherocytes 2+, Erythrocyte Sedimentation Rate 97H Height (Feet): 5 Height (Inches): 6.00 Weight (Pounds): 244 General Appearance: no apparent distress Cardiovascular: tachycardia Respiratory/Chest: decreased breath sounds Abdomen: distended Objective no other change YVES SINHA Nov 06, 2017 14:41
--- NOTE | 2017-11-06 14:46 | Cardiology Progress Note ---
Assessment/Plan Assessment/Plan 1. Cardiopulmonary arrest on three separate occasions. 2. Massive gastrointestinal bleed. 3. Encephalopathy. 4. Abnormal liver function tests, likely shock liver. 5. Acute renal failure. 6. Anemia. 7. NSTEMI type2 related to cardiopulmonary resuscitation and renal insufficiency. 8. Chronic respiratory failure. 9. History of cerebrovascular accident. 10. c diff hgb lower again gastric lavage neg for acute bleed per staff onthe vent dialysis tele sinus bp seem fine still Subjective ROS Limited/Unobtainable: Yes Objective Last 24 Hour Vital Signs Date Time Temp Pulse Resp B/P (MAP) Pulse Ox O2 Delivery O2 Flow Rate FiO2 11/06/17 13:16 91 18 50 11/06/17 12:03 99 11/06/17 12:00 97.9 89 18 131/78 97 Mechanical Ventilator 50 97.9 11/06/17 12:00 30 11/06/17 11:08 84 20 50 11/06/17 09:21 86 134/85 11/06/17 08:32 87 18 50 11/06/17 08:00 30 11/06/17 08:00 98.2 79 18 121/77 96 Mechanical Ventilator 50 98.2 11/06/17 08:00 93 11/06/17 06:42 86 18 50 11/06/17 05:00 89 18 50 11/06/17 04:00 85 11/06/17 04:00 97.5 89 20 134/85 Mechanical Ventilator 50 97.5 11/06/17 02:31 92 27 80 11/06/17 02:00 50 11/06/17 00:40 111 30 80 11/06/17 00:10 80 11/06/17 00:00 107 11/06/17 00:00 98.1 110 30 151/92 Mechanical Ventilator 50 98.1 11/05/17 23:51 93 174/87 11/05/17 23:27 100 23 30 11/05/17 22:10 Mechanical Ventilator 30 11/05/17 22:10 98.3 106 28 153/87 Mechanical Ventilator 30 98.3 11/05/17 20:54 105 24 30 11/05/17 20:00 97.7 108 27 154/93 Mechanical Ventilator 30 97.7 11/05/17 20:00 30 11/05/17 19:19 110 2/26/18 19:00 Mechanical Ventilator 30 11/05/17 19:00 97.7 99 28 148/94 Mechanical Ventilator 30 97.7 11/05/17 18:46 92 22 30 11/05/17 17:02 97 21 30 11/05/17 16:00 30 11/05/17 16:00 96 11/05/17 16:00 97.7 91 18 145/87 100 Mechanical Ventilator 30 97.7 11/05/17 15:06 98 21 30 General Appearance: no apparent distress, on vent, patient on isolation Cardiovascular: normal rate Extremities: no swelling Intake and Output 11/05/17 11/06/17 19:00 07:00 Intake Total 790 ml 890 ml Output Total 1000 ml 100 ml Balance -210 ml 790 ml Free Water 250 ml IV Total 100 ml 100 ml Tube Feeding 540 ml 540 ml Other 150 ml Output Urine Total 1000 ml Stool Total 100 ml Hemodialysis UF 0 ml # Bowel Movements 100 Laboratory Tests Test 11/06/17 03:25 11/06/17 06:42 White Blood Count 25.6 K/UL (4.8-10.8) *H 25.8 K/UL (4.8-10.8) *H Red Blood Count 1.86 M/UL (4.70-6.10) L 1.97 M/UL (4.70-6.10) L Hemoglobin 5.7 G/DL (14.2-18.0) *L 6.1 G/DL (14.2-18.0) *L Hematocrit 16.8 % (42.0-52.0) L 17.8 % (42.0-52.0) L Mean Corpuscular Volume 90 FL (80-99) 90 FL (80-99) Mean Corpuscular Hemoglobin 30.8 PG (27.0-31.0) 31.1 PG (27.0-31.0) H Mean Corpuscular Hemoglobin Concent 34.2 G/DL (32.0-36.0) 34.5 G/DL (32.0-36.0) Red Cell Distribution Width 14.8 % (11.6-14.8) 15.2 % (11.6-14.8) H Platelet Count 292 K/UL (150-450) 332 K/UL (150-450) Mean Platelet Volume 6.2 FL (6.5-10.1) L 6.2 FL (6.5-10.1) L Neutrophils (%) (Auto) % (45.0-75.0) % (45.0-75.0) Lymphocytes (%) (Auto) % (20.0-45.0) % (20.0-45.0) Monocytes (%) (Auto) % (1.0-10.0) % (1.0-10.0) Eosinophils (%) (Auto) % (0.0-3.0) % (0.0-3.0) Basophils (%) (Auto) % (0.0-2.0) % (0.0-2.0) Differential Total Cells Counted 100 100 Neutrophils % (Manual) 91 % (45-75) H 82 % (45-75) H Lymphocytes % (Manual) 4 % (20-45) L 4 % (20-45) L Monocytes % (Manual) 4 % (1-10) 11 % (1-10) H Eosinophils % (Manual) 1 % (0-3) 2 % (0-3) Basophils % (Manual) 0 % (0-2) 1 % (0-2) Band Neutrophils 0 % (0-8) 0 % (0-8) Platelet Estimate Adequate Adequate Platelet Morphology Normal Normal Hypochromasia 4+ 4+ Anisocytosis 1+ 1+ Spherocytes 2+ 2+ Erythrocyte Sedimentation Rate 92 MM/HR (0-20) H 97 MM/HR (0-20) H Sodium Level 145 MMOL/L (136-145) Potassium Level 3.2 MMOL/L (3.5-5.1) L Chloride Level 106 MMOL/L (98-107) Carbon Dioxide Level 35 MMOL/L (21-32) H Anion Gap 4 mmol/L (5-15) L Blood Urea Nitrogen 55 mg/dL (7-18) H Creatinine 5.0 MG/DL (0.55-1.30) H Estimat Glomerular Filtration Rate 14.4 mL/min (>60) Glucose Level 98 MG/DL (74-106) Calcium Level 7.6 MG/DL (8.5-10.1) L Phosphorus Level 4.9 MG/DL (2.5-4.9) Magnesium Level 1.8 MG/DL (1.8-2.4) Total Bilirubin 0.5 MG/DL (0.2-1.0) Aspartate Amino Transf (AST/SGOT) 26 U/L (15-37) Alanine Aminotransferase (ALT/SGPT) 45 U/L (12-78) Alkaline Phosphatase 96 U/L (46-116) Total Protein 5.0 G/DL (6.4-8.2) L Albumin 1.3 G/DL (3.4-5.0) L Globulin 3.7 g/dL Albumin/Globulin Ratio 0.4 (1.0-2.7) L CHRISTEN LOVE Nov 06, 2017 14:45
[2017-11-06 16:00] VITALS: BP 149/93
[2017-11-06 20:00] VITALS: BP 114/100
[2017-11-06] MEDS: Dyna-Hex 2% Top Sol 2oz TOPIC SCH (21:05)
[2017-11-07] VITALS: BP 145/91
[2017-11-07 04:00] VITALS: BP 146/83
[2017-11-07 06:01] LABS: HEMATOCRIT 22.9 % (42.0-52.0); HEMOGLOBIN 8.1 G/DL (14.2-18.0); MEAN CORPUSCULAR VOLUME 88 FL (80-99); PLATELET COUNT 332 K/UL (150-450); RED CELL DISTRIBUTION WIDTH 15.1 % (11.6-14.8)
[2017-11-07 06:13] LABS: WHITE BLOOD COUNT 22.4 K/UL (4.8-10.8)
[2017-11-07 06:18] LABS: INR 1.3 (0.9-1.1)
[2017-11-07 06:28] LABS: ALANINE AMINOTRANSFERASE 40 U/L (12-78); ALBUMIN 1.3 G/DL (3.4-5.0); ALBUMIN/GLOBULIN RATIO 0.3 (1.0-2.7); ALKALINE PHOSPHATASE 107 U/L (46-116); ANION GAP 5 mmol/L (5-15); ASPARTATE AMINO TRANSFERASE 26 U/L (15-37); BILIRUBIN,TOTAL 0.5 MG/DL (0.2-1.0); BLOOD UREA NITROGEN 58 mg/dL (7-18); CALCIUM 7.9 MG/DL (8.5-10.1); CARBON DIOXIDE 34 MMOL/L (21-32); CHLORIDE 106 MMOL/L (98-107); CREATININE 5.5 MG/DL (0.55-1.30); PHOSPHORUS 5.4 MG/DL (2.5-4.9); POTASSIUM 3.1 MMOL/L (3.5-5.1); SODIUM 145 MMOL/L (136-145)
[2017-11-07 08:00] VITALS: BP 147/94
[2017-11-07] MEDS: Vancomycin oral 125mg/2.5ml ORAL SCH ×4 (08:45→20:50)
[2017-11-07] MEDS: Metoprolol 25mg tab GT SCH ×2 (08:45→20:50)
[2017-11-07] MEDS: Renvela 800mg Pkt NG SCH ×3 (08:45→18:09)
[2017-11-07] MEDS: Lactobacillus-GG tablet GT SCH ×3 (08:45→18:10)
--- NOTE | 2017-11-07 10:42 | Infectious Diseases Prog Note ---
Assessment/Plan Assessment/Plan A C Diff +ve, diarrhea mild improvement Fever, SP Leukocytosis, improving -CXR: 10/30 : Slightly increased hazy opacity left lung base and obscuration of left hemidiaphragm, may reflect increased infiltrates and/or pleural fluid E.coli UTI w/ bacteremia ; s/p Rx -REnal US: Limited exam. No definite hydronephrosis. Empty bladder, containing a Cervantes catheter. Suspicion for Flu despite rapid test (+URI symptoms, sick contacts); s/p Rx ? Pneum -CXR 10/26: There is right basilar and right perihilar atelectasis and possibly minimal consolidation. Left lung and bilateral pleural spaces remain clear. -Influenza neg Acute hypoxic resp failure- intubated (10/20) , SP Trach 10/23 12/18 KUB : Distended small bowel. Ileus versus obstruction. SP cardiac arrest 10/26 SP hemorrhagic shock (drop Hgb 10.8 to 5)- 10/12 GIB- transaminitis due to shock improving JULIA on HD , HD cath Lactic acidosis, resolved UGI bleed / Anemia SP EGD 10/18 and 10/26 Path: H Pylori Neg CVA with hemiplegia HTN cataract dysphagia Hx of fall CAD/FL CVA/TIA dementia seizure disorder Plan: -Continue Flagyl and oral Vanco d# /-21 10/30 SP Meropenem d# 5 - 10/29 SP IV Vanco # 10 - 10/26 SP Zosyn #6 - 10/21 SP Ceftriaxone 2 g qd d# 11 - 10/17 SP empiric Tamiflu #6/5 -10/15 SP IV Vancomcyin #5, Meropenm #3 -10/13 SP Cefepime #3 -Monitor CBC/BMP, temperatures; -aspiration precautions - vent Support - Subjective Allergies: Coded Allergies: NO KNOWN ALLERGIES (Unverified Allergy, Unknown, 09/03/15) Subjective afebrile Objective Vital Signs Last 24 Hour Vital Signs Date Time Temp Pulse Resp B/P (MAP) Pulse Ox O2 Delivery O2 Flow Rate FiO2 11/07/17 09:28 91 18 50 11/07/17 08:45 83 147/94 11/07/17 08:00 98.1 83 18 147/94 100 Mechanical Ventilator 50 98.1 11/07/17 08:00 50 11/07/17 08:00 72 11/07/17 07:29 89 18 50 11/07/17 05:48 99 18 50 11/07/17 04:00 76 11/07/17 04:00 50 11/07/17 04:00 98.7 84 18 146/83 100 Mechanical Ventilator 50 98.7 11/07/17 03:30 91 18 50 11/07/17 01:27 100 18 50 11/07/17 00:00 98.9 97 20 145/91 97 Mechanical Ventilator 50 98.9 11/07/17 00:00 89 11/06/17 23:13 95 18 50 11/06/17 21:05 104 114/100 11/06/17 20:58 104 21 30 11/06/17 20:00 109 11/06/17 20:00 50 11/06/17 20:00 98.3 113 21 114/100 90 Mechanical Ventilator 30 98.3 11/06/17 19:20 108 19 30 11/06/17 16:43 97 18 50 11/06/17 16:00 94 11/06/17 16:00 30 11/06/17 16:00 97.6 102 23 149/93 100 Mechanical Ventilator 50 97.6 11/06/17 15:29 90 18 50 11/06/17 13:16 91 18 50 11/06/17 12:03 99 11/06/17 12:00 97.9 89 18 131/78 97 Mechanical Ventilator 50 97.9 11/06/17 12:00 30 11/06/17 11:08 84 20 50 Height (Feet): 5 Height (Inches): 6.00 Weight (Pounds): 242 HEENT: mucous membranes moist Respiratory/Chest: no respiratory distress Cardiovascular: regular rhythm Abdomen: no mass Laboratory Tests Test 11/07/17 04:30 White Blood Count 22.4 K/UL (4.8-10.8) *H Red Blood Count 2.60 M/UL (4.70-6.10) L Hemoglobin 8.1 G/DL (14.2-18.0) #L Hematocrit 22.9 % (42.0-52.0) L Mean Corpuscular Volume 88 FL (80-99) Mean Corpuscular Hemoglobin 31.1 PG (27.0-31.0) H Mean Corpuscular Hemoglobin Concent 35.4 G/DL (32.0-36.0) Red Cell Distribution Width 15.1 % (11.6-14.8) H Platelet Count 332 K/UL (150-450) Mean Platelet Volume 6.1 FL (6.5-10.1) L Neutrophils (%) (Auto) % (45.0-75.0) Lymphocytes (%) (Auto) % (20.0-45.0) Monocytes (%) (Auto) % (1.0-10.0) Eosinophils (%) (Auto) % (0.0-3.0) Basophils (%) (Auto) % (0.0-2.0) Differential Total Cells Counted 100 Neutrophils % (Manual) 86 % (45-75) H Lymphocytes % (Manual) 5 % (20-45) L Monocytes % (Manual) 8 % (1-10) Eosinophils % (Manual) 1 % (0-3) Basophils % (Manual) 0 % (0-2) Band Neutrophils 0 % (0-8) Platelet Estimate Adequate Platelet Morphology Normal Hypochromasia 1+ Anisocytosis 1+ Prothrombin Time 13.4 SEC (9.30-11.50) H Prothromb Time International Ratio 1.3 (0.9-1.1) H Activated Partial Thromboplast Time 27 SEC (23-33) Sodium Level 145 MMOL/L (136-145) Potassium Level 3.1 MMOL/L (3.5-5.1) L Chloride Level 106 MMOL/L (98-107) Carbon Dioxide Level 34 MMOL/L (21-32) H Anion Gap 5 mmol/L (5-15) Blood Urea Nitrogen 58 mg/dL (7-18) H Creatinine 5.5 MG/DL (0.55-1.30) H Estimat Glomerular Filtration Rate 12.8 mL/min (>60) Glucose Level 109 MG/DL (74-106) H Calcium Level 7.9 MG/DL (8.5-10.1) L Phosphorus Level 5.4 MG/DL (2.5-4.9) H Magnesium Level 1.7 MG/DL (1.8-2.4) L Total Bilirubin 0.5 MG/DL (0.2-1.0) Aspartate Amino Transf (AST/SGOT) 26 U/L (15-37) Alanine Aminotransferase (ALT/SGPT) 40 U/L (12-78) Alkaline Phosphatase 107 U/L (46-116) Total Protein 5.4 G/DL (6.4-8.2) L Albumin 1.3 G/DL (3.4-5.0) L Globulin 4.1 g/dL Albumin/Globulin Ratio 0.3 (1.0-2.7) L Current Medications Medications (Trade) Dose Ordered Sig/Olvin Route PRN Reason Start Time Stop Time Status Last Admin Dose Admin Acetaminophen (Tylenol) 650 mg Q4H PRN RECTAL Mild Pain (Pain Scale 1-3) 10/30/17 21:00 11/20/17 20:59 Chlorhexidine Gluconate (Pamela-Hex 2%) 1 applic DAILY@1999 TOPIC 10/31/17 22:00 11/23/17 21:59 11/06/17 21:05 Famotidine (Pepcid I.v.) 20 mg Q24HRS IVP 10/30/17 21:30 11/29/17 21:29 11/06/17 21:13 Lactobacillus Acidophilus (Culturelle) 1 tab THREE TIMES A DAY GT 11/03/17 13:00 12/03/17 12:59 11/07/17 08:45 Lorazepam (Ativan 2mg/ml 1ml) 2 mg Q4H PRN IV For Anxiety 11/05/17 20:45 11/12/17 20:44 11/06/17 02:20 Metoclopramide HCl (Reglan) 5 mg Q6H PRN GT Irrectractable Nausea/Vomiting 10/30/17 21:00 11/29/17 20:59 Metoprolol Tartrate (Lopressor) 25 mg Q12HR GT 10/30/17 21:30 11/29/17 21:29 11/07/17 08:45 Metronidazole 100 ml @ 100 mls/hr Q8HR IV 10/30/17 22:00 11/09/17 23:59 11/07/17 06:06 Nitroglycerin (Ntg) 0.4 mg Q5MIN X 3 DOSES PRN SL Prn Chest Pain 10/30/17 20:45 11/14/17 17:09 Ondansetron HCl (Zofran) 4 mg Q6H PRN IVP Nausea & Vomiting 10/30/17 21:00 11/29/17 20:59 Sevelamer Carbonate (Renvela) 1,600 mg THREE TIMES A DAY NG 11/04/17 13:00 12/04/17 12:59 11/07/17 08:45 Vancomycin HCl (Vancomycin) 125 mg FOUR TIMES A DAY ORAL 10/30/17 21:30 11/09/17 23:59 11/07/17 08:45 FAUSTINO AGARWAL M.D. Nov 07, 2017 10:42
--- NOTE | 2017-11-07 11:56 | Pulmonology Progress Note ---
Assessment/Plan Assessment/Plan ASSESSMENT s/p cardiac arrest ( due to acute GI hemorrhage on 10/26) x 3 acute GI hemorrhage-persistent hypovolemic shock ( due to GI hemorrhage)-resolved elevated troponin, likely due to multiple cardiac arrest and shocks possible acute RI severely elevated LFT , likely shock liver multiorgan system failure acute anemia of blood loss, requiring 3 u PRBC s/p trach 10/23 trach malfunctioning, s/p trach exchange 10/26 acute renal failure acute hypoxemic RF requiring BiPAP, unable to wean ( s/p trach) severe sepsis with E coli bacteremia ( s/p Rx) E coli UTI ( s/p Rx) C dif colitis probably PNA acute bronchitis possible influenza ( s/p Rx) hematuria lactic acidosis 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 seizure disorder HTN CAD with hx of RI dysphagia, s/p PEG dementia R lateral malleolus DTI PLAN OF CARE SANTOS s/p Levophed Hemodynamically stable ABG stable Vent/trach care pulm toilet fup with CXR and ABG per cardio troponin likely due to cardiac arrest x 3, troponin trending down ECHO done- pEF 60-65%, no change from initial s/p trach exchange due to leak by surgeon, currently trach functional s/p Protonix gtt s/p emergent EGD , ulcer noted, vessel clipped recurrent bleeding sp additional transfusion 11/06 monitor counts, monitor for active bleeding strict asp precautions, s/p PEG, a/emetic prn bowel regimen rectal tube for stool containing 2 to C dif diarrhea nephro follows started on HD monitor renal parameters, correct lytes as needed, avoid nephrotoxic renal US done earlier with normal bilateral kidney echogenicity and no hydro however due to ARF and worsening renal parameters , started on HD severely elevated LFT likely due to shock liver, trending down overall multiple organ/system failure-improving ID follows blood cx + E coli, urine cx + E coli, s/p rx Influenza negative ( but rapid test with only sensitivity 60-65%, by history high suspicion for flu), s/p Tamiflu last blood and urine cx negtaicve leukocytosis persistent probably at least partially due to C dif stool C dif+ on po Vanco and Flagyl, ECHO with pEF 60-65% CTA no PE hold ASA for now due to acute GI bleeding continue BB and statin troponin negative urologist seen and evaluated for hematuria Cervantes seizure precautions, on Depakote , monitor levels case discussed and evaluated by supervising physician Subjective Allergies: Coded Allergies: NO KNOWN ALLERGIES (Unverified Allergy, Unknown, 09/03/15) Subjective still with leukocytosis , afebrile s/p blood transfusion Objective Last 24 Hour Vital Signs Date Time Temp Pulse Resp B/P (MAP) Pulse Ox O2 Delivery O2 Flow Rate FiO2 11/07/17 11:19 89 18 50 11/07/17 09:28 91 18 50 11/07/17 08:45 83 147/94 11/07/17 08:00 98.1 83 18 147/94 100 Mechanical Ventilator 50 98.1 11/07/17 08:00 50 11/07/17 08:00 72 11/07/17 07:29 89 18 50 11/07/17 05:48 99 18 50 11/07/17 04:00 76 11/07/17 04:00 50 11/07/17 04:00 98.7 84 18 146/83 100 Mechanical Ventilator 50 98.7 11/07/17 03:30 91 18 50 11/07/17 01:27 100 18 50 11/07/17 00:00 98.9 97 20 145/91 97 Mechanical Ventilator 50 98.9 11/07/17 00:00 89 11/06/17 23:13 95 18 50 11/06/17 21:05 104 114/100 11/06/17 20:58 104 21 30 11/06/17 20:00 109 11/06/17 20:00 50 11/06/17 20:00 98.3 113 21 114/100 90 Mechanical Ventilator 30 98.3 11/06/17 19:20 108 19 30 11/06/17 16:43 97 18 50 11/06/17 16:00 94 11/06/17 16:00 30 11/06/17 16:00 97.6 102 23 149/93 100 Mechanical Ventilator 50 97.6 11/06/17 15:29 90 18 50 11/06/17 13:16 91 18 50 11/06/17 12:03 99 11/06/17 12:00 97.9 89 18 131/78 97 Mechanical Ventilator 50 97.9 11/06/17 12:00 30 Intake and Output 11/06/17 11/07/17 19:00 07:00 Intake Total 940 ml 690 ml Output Total 825 ml 1350 ml Balance 115 ml -660 ml Free Water 150 ml 50 ml IV Total 200 ml 100 ml Tube Feeding 540 ml 540 ml Other 50 ml Output Urine Total 825 ml 1300 ml Stool Total 50 ml Objective General: awake, poorly responsive , HEENT: atraumatic, normocephalic on vent AC 550-18-50% PEEP-5 Neck: trach with Portex #8, secretions thick, yellow, moderate Lungs: few crackles at bases Heart: HR/BP stable, regular, SR- tele , RIJ CL intact, R subclavian CL intact Abdomen: soft, non-tender, active bowel sounds, feeding tube, Extremities: trace edema BLE Laboratory Tests 11/07/17 04:30: White Blood Count 22.4*H, Red Blood Count 2.60L, Hemoglobin 8.1#L, Hematocrit 22.9L, Mean Corpuscular Volume 88, Mean Corpuscular Hemoglobin 31.1H, Mean Corpuscular Hemoglobin Concent 35.4, Red Cell Distribution Width 15.1H, Platelet Count 332, Mean Platelet Volume 6.1L, Neutrophils (%) (Auto) , Lymphocytes (%) (Auto) , Monocytes (%) (Auto) , Eosinophils (%) (Auto) , Basophils (%) (Auto) , Differential Total Cells Counted 100, Neutrophils % ( Manual) 86H, Lymphocytes % (Manual) 5L, Monocytes % (Manual) 8, Eosinophils % ( Manual) 1, Basophils % (Manual) 0, Band Neutrophils 0, Platelet Estimate Adequate, Platelet Morphology Normal, Hypochromasia 1+, Anisocytosis 1+, Prothrombin Time 13.4H, Prothromb Time International Ratio 1.3H, Activated Partial Thromboplast Time 27, Sodium Level 145, Potassium Level 3.1L, Chloride Level 106, Carbon Dioxide Level 34H, Anion Gap 5, Blood Urea Nitrogen 58H, Creatinine 5.5H, Estimat Glomerular Filtration Rate 12.8, Glucose Level 109H, Calcium Level 7.9L, Phosphorus Level 5.4H, Magnesium Level 1.7L, Total Bilirubin 0.5, Aspartate Amino Transf (AST/SGOT) 26, Alanine Aminotransferase ( ALT/SGPT) 40, Alkaline Phosphatase 107, Total Protein 5.4L, Albumin 1.3L, Globulin 4.1, Albumin/Globulin Ratio 0.3L Current Medications Medications (Trade) Dose Ordered Sig/Olvin Route PRN Reason Start Time Stop Time Status Last Admin Dose Admin Acetaminophen (Tylenol) 650 mg Q4H PRN RECTAL Mild Pain (Pain Scale 1-3) 10/30/17 21:00 11/20/17 20:59 Chlorhexidine Gluconate (Pamela-Hex 2%) 1 applic DAILY@2000 TOPIC 10/31/17 22:00 11/23/17 21:59 11/06/17 21:05 Famotidine (Pepcid I.v.) 20 mg Q24HRS IVP 10/30/17 21:30 11/29/17 21:29 11/06/17 21:13 Lactobacillus Acidophilus (Culturelle) 1 tab THREE TIMES A DAY GT 11/03/17 13:00 12/03/17 12:59 11/07/17 08:45 Lorazepam (Ativan 2mg/ml 1ml) 2 mg Q4H PRN IV For Anxiety 11/05/17 20:45 11/12/17 20:44 11/06/17 02:20 Metoclopramide HCl (Reglan) 5 mg Q6H PRN GT Irrectractable Nausea/Vomiting 10/30/17 21:00 11/29/17 20:59 Metoprolol Tartrate (Lopressor) 25 mg Q12HR GT 10/30/17 21:30 11/29/17 21:29 11/07/17 08:45 Metronidazole 100 ml @ 100 mls/hr Q8HR IV 10/30/17 22:00 11/09/17 23:59 11/07/17 06:06 Nitroglycerin (Ntg) 0.4 mg Q5MIN X 3 DOSES PRN SL Prn Chest Pain 10/30/17 20:45 11/14/17 17:09 Ondansetron HCl (Zofran) 4 mg Q6H PRN IVP Nausea & Vomiting 10/30/17 21:00 11/29/17 20:59 Sevelamer Carbonate (Renvela) 1,600 mg THREE TIMES A DAY NG 11/04/17 13:00 12/04/17 12:59 11/07/17 08:45 Vancomycin HCl (Vancomycin) 125 mg FOUR TIMES A DAY ORAL 10/30/17 21:30 11/09/17 23:59 11/07/17 08:45 Pippa Griggs (Vanchtein) [employer] Nov 07, 2017 11:56
--- NOTE | 2017-11-07 11:56 | Nephrology Progress Note ---
Assessment/Plan Problem List: (1) Acute renal failure (ARF) (2) Respiratory failure (3) Shock liver Assessment JULIA , due to Shock , Hemorrhagic / Septic / C dif colitis worsenning anemia Off Pressors- Shock liver resolving High Troponin: OK Bradycardic - Vfib cardiac arrest 10/26 likely 2ry to hemorrhagic shock (drop Hgb 10.8 to 5) - GIB- Fever, ongoing Leukocytosis, worsening after code E.coli UTI w/ bacteremia Acute hypoxic resp failure- s/p Trach . Plan Plan: dialyse 11/06 next 11/08 has new cath right chest right groin cath removed being transfused add Renvela and Lactobacillus BP stablized start GT feeding HD trial as needed- on C dif treatment protocol monitor urine out put and Renal parameters discussed with RN Subjective ROS Limited/Unobtainable: No Constitutional: Reports: malaise Objective Objective Last 24 Hour Vital Signs Date Time Temp Pulse Resp B/P (MAP) Pulse Ox O2 Delivery O2 Flow Rate FiO2 11/07/17 11:19 89 18 50 11/07/17 09:28 91 18 50 11/07/17 08:45 83 147/94 11/07/17 08:00 98.1 83 18 147/94 100 Mechanical Ventilator 50 98.1 11/07/17 08:00 50 11/07/17 08:00 72 11/07/17 07:29 89 18 50 11/07/17 05:48 99 18 50 11/07/17 04:00 76 11/07/17 04:00 50 11/07/17 04:00 98.7 84 18 146/83 100 Mechanical Ventilator 50 98.7 11/07/17 03:30 91 18 50 11/07/17 01:27 100 18 50 11/07/17 00:00 98.9 97 20 145/91 97 Mechanical Ventilator 50 98.9 11/07/17 00:00 89 11/06/17 23:13 95 18 50 11/06/17 21:05 104 114/100 11/06/17 20:58 104 21 30 11/06/17 20:00 109 11/06/17 20:00 50 11/06/17 20:00 98.3 113 21 114/100 90 Mechanical Ventilator 30 98.3 11/06/17 19:20 108 19 30 11/06/17 16:43 97 18 50 11/06/17 16:00 94 11/06/17 16:00 30 11/06/17 16:00 97.6 102 23 149/93 100 Mechanical Ventilator 50 97.6 11/06/17 15:29 90 18 50 11/06/17 13:16 91 18 50 11/06/17 12:03 99 11/06/17 12:00 97.9 89 18 131/78 97 Mechanical Ventilator 50 97.9 11/06/17 12:00 30 Intake and Output 11/06/17 11/07/17 19:00 07:00 Intake Total 940 ml 690 ml Output Total 825 ml 1350 ml Balance 115 ml -660 ml Free Water 150 ml 50 ml IV Total 200 ml 100 ml Tube Feeding 540 ml 540 ml Other 50 ml Output Urine Total 825 ml 1300 ml Stool Total 50 ml Laboratory Tests 11/07/17 04:30: White Blood Count 22.4*H, Red Blood Count 2.60L, Hemoglobin 8.1#L, Hematocrit 22.9L, Mean Corpuscular Volume 88, Mean Corpuscular Hemoglobin 31.1H, Mean Corpuscular Hemoglobin Concent 35.4, Red Cell Distribution Width 15.1H, Platelet Count 332, Mean Platelet Volume 6.1L, Neutrophils (%) (Auto) , Lymphocytes (%) (Auto) , Monocytes (%) (Auto) , Eosinophils (%) (Auto) , Basophils (%) (Auto) , Differential Total Cells Counted 100, Neutrophils % ( Manual) 86H, Lymphocytes % (Manual) 5L, Monocytes % (Manual) 8, Eosinophils % ( Manual) 1, Basophils % (Manual) 0, Band Neutrophils 0, Platelet Estimate Adequate, Platelet Morphology Normal, Hypochromasia 1+, Anisocytosis 1+, Prothrombin Time 13.4H, Prothromb Time International Ratio 1.3H, Activated Partial Thromboplast Time 27, Sodium Level 145, Potassium Level 3.1L, Chloride Level 106, Carbon Dioxide Level 34H, Anion Gap 5, Blood Urea Nitrogen 58H, Creatinine 5.5H, Estimat Glomerular Filtration Rate 12.8, Glucose Level 109H, Calcium Level 7.9L, Phosphorus Level 5.4H, Magnesium Level 1.7L, Total Bilirubin 0.5, Aspartate Amino Transf (AST/SGOT) 26, Alanine Aminotransferase ( ALT/SGPT) 40, Alkaline Phosphatase 107, Total Protein 5.4L, Albumin 1.3L, Globulin 4.1, Albumin/Globulin Ratio 0.3L Height (Feet): 5 Height (Inches): 6.00 Weight (Pounds): 242 General Appearance: no apparent distress Respiratory/Chest: decreased breath sounds Abdomen: distended Objective no other change YVES SINHA Nov 07, 2017 11:56
[2017-11-07 12:00] VITALS: BP 138/96
[2017-11-07] MEDS ORDERED: Albuterol/Ipratropium 3ml neb HHN PRN (12:15)
--- NOTE | 2017-11-07 12:30 | GI Progress Note ---
Assessment/Plan Problems: (1) Dysphagia ICD Codes: R13.10 - Dysphagia, unspecified SNOMED: 42857733, 623115379 (2) Dementia ICD Codes: F03.90 - Unspecified dementia without behavioral disturbance SNOMED: 24806916 (3) PEG (percutaneous endoscopic gastrostomy) adjustment/replacement/removal ICD Codes: Z43.1 - Encounter for attention to gastrostomy SNOMED: 513734800, 267674889 (4) CVA, old, hemiparesis ICD Codes: I69.359 - Hemiplegia and hemiparesis following cerebral infarction affecting unspecified side SNOMED: 26549596, 52303340, [id number] Status: unchanged Status Narrative Discussed with Dr. Campos. Assessment/Plan s/p EGD and hemostasis cdiff positive >> dc ppi, H2B BID gastric lavage performed by RN with no evidence of gastric bleed monitor H&H, prn transfusion cont GTFs per RD GT site care BID/prn abx poor prognosis fu labs Subjective Subjective limited Objective Last 24 Hour Vital Signs Date Time Temp Pulse Resp B/P (MAP) Pulse Ox O2 Delivery O2 Flow Rate FiO2 11/07/17 11:19 89 18 50 11/07/17 09:28 91 18 50 11/07/17 08:45 83 147/94 11/07/17 08:00 98.1 83 18 147/94 100 Mechanical Ventilator 50 98.1 11/07/17 08:00 50 11/07/17 08:00 72 11/07/17 07:29 89 18 50 11/07/17 05:48 99 18 50 11/07/17 04:00 76 11/07/17 04:00 50 11/07/17 04:00 98.7 84 18 146/83 100 Mechanical Ventilator 50 98.7 11/07/17 03:30 91 18 50 11/07/17 01:27 100 18 50 11/07/17 00:00 98.9 97 20 145/91 97 Mechanical Ventilator 50 98.9 11/07/17 00:00 89 11/06/17 23:13 95 18 50 11/06/17 21:05 104 114/100 11/06/17 20:58 104 21 30 11/06/17 20:00 109 11/06/17 20:00 50 11/06/17 20:00 98.3 113 21 114/100 90 Mechanical Ventilator 30 98.3 11/06/17 19:20 108 19 30 11/06/17 16:43 97 18 50 11/06/17 16:00 94 11/06/17 16:00 30 11/06/17 16:00 97.6 102 23 149/93 100 Mechanical Ventilator 50 97.6 11/06/17 15:29 90 18 50 11/06/17 13:16 91 18 50 Intake and Output 11/06/17 11/07/17 19:00 07:00 Intake Total 940 ml 690 ml Output Total 825 ml 1350 ml Balance 115 ml -660 ml Free Water 150 ml 50 ml IV Total 200 ml 100 ml Tube Feeding 540 ml 540 ml Other 50 ml Output Urine Total 825 ml 1300 ml Stool Total 50 ml Laboratory Tests Test 11/07/17 04:30 White Blood Count 22.4 K/UL (4.8-10.8) *H Red Blood Count 2.60 M/UL (4.70-6.10) L Hemoglobin 8.1 G/DL (14.2-18.0) #L Hematocrit 22.9 % (42.0-52.0) L Mean Corpuscular Volume 88 FL (80-99) Mean Corpuscular Hemoglobin 31.1 PG (27.0-31.0) H Mean Corpuscular Hemoglobin Concent 35.4 G/DL (32.0-36.0) Red Cell Distribution Width 15.1 % (11.6-14.8) H Platelet Count 332 K/UL (150-450) Mean Platelet Volume 6.1 FL (6.5-10.1) L Neutrophils (%) (Auto) % (45.0-75.0) Lymphocytes (%) (Auto) % (20.0-45.0) Monocytes (%) (Auto) % (1.0-10.0) Eosinophils (%) (Auto) % (0.0-3.0) Basophils (%) (Auto) % (0.0-2.0) Differential Total Cells Counted 100 Neutrophils % (Manual) 86 % (45-75) H Lymphocytes % (Manual) 5 % (20-45) L Monocytes % (Manual) 8 % (1-10) Eosinophils % (Manual) 1 % (0-3) Basophils % (Manual) 0 % (0-2) Band Neutrophils 0 % (0-8) Platelet Estimate Adequate Platelet Morphology Normal Hypochromasia 1+ Anisocytosis 1+ Prothrombin Time 13.4 SEC (9.30-11.50) H Prothromb Time International Ratio 1.3 (0.9-1.1) H Activated Partial Thromboplast Time 27 SEC (23-33) Sodium Level 145 MMOL/L (136-145) Potassium Level 3.1 MMOL/L (3.5-5.1) L Chloride Level 106 MMOL/L (98-107) Carbon Dioxide Level 34 MMOL/L (21-32) H Anion Gap 5 mmol/L (5-15) Blood Urea Nitrogen 58 mg/dL (7-18) H Creatinine 5.5 MG/DL (0.55-1.30) H Estimat Glomerular Filtration Rate 12.8 mL/min (>60) Glucose Level 109 MG/DL (74-106) H Calcium Level 7.9 MG/DL (8.5-10.1) L Phosphorus Level 5.4 MG/DL (2.5-4.9) H Magnesium Level 1.7 MG/DL (1.8-2.4) L Total Bilirubin 0.5 MG/DL (0.2-1.0) Aspartate Amino Transf (AST/SGOT) 26 U/L (15-37) Alanine Aminotransferase (ALT/SGPT) 40 U/L (12-78) Alkaline Phosphatase 107 U/L (46-116) Total Protein 5.4 G/DL (6.4-8.2) L Albumin 1.3 G/DL (3.4-5.0) L Globulin 4.1 g/dL Albumin/Globulin Ratio 0.3 (1.0-2.7) L Height (Feet): 5 Height (Inches): 6.00 Weight (Pounds): 242 General Appearance: no apparent distress Cardiovascular: normal rate Respiratory/Chest: normal breath sounds, no respiratory distress, other - trach to vent Abdominal Exam: normal bowel sounds, non tender, soft, GT site - c/d/i Extremities: non-tender Laura Lucas N.PHitesh Nov 07, 2017 12:30
[2017-11-07 16:00] VITALS: BP 144/93
[2017-11-07 20:00] VITALS: BP 146/87
--- NOTE | 2017-11-07 20:03 | Cardiology Progress Note ---
Assessment/Plan Assessment/Plan 1. Cardiopulmonary arrest on three separate occasions. 2. Massive gastrointestinal bleed. 3. Encephalopathy. 4. Abnormal liver function tests, likely shock liver. 5. Acute renal failure. 6. Anemia. 7. NSTEMI type2 related to cardiopulmonary resuscitation and renal insufficiency. 8. Chronic respiratory failure. 9. History of cerebrovascular accident. 10. c diff onthe vent dialysis per dr wang tele sinus still bp seem ok onteh high side to day Subjective ROS Limited/Unobtainable: Yes Objective Last 24 Hour Vital Signs Date Time Temp Pulse Resp B/P (MAP) Pulse Ox O2 Delivery O2 Flow Rate FiO2 11/07/17 16:39 88 18 50 11/07/17 16:00 99.1 88 19 144/93 100 Mechanical Ventilator 50 99.1 11/07/17 16:00 80 11/07/17 16:00 50 11/07/17 14:47 94 18 50 11/07/17 13:11 86 18 50 11/07/17 12:00 83 11/07/17 12:00 50 11/07/17 12:00 99.2 90 16 138/96 100 Mechanical Ventilator 50 99.2 11/07/17 11:19 89 18 50 11/07/17 09:28 91 18 50 11/07/17 08:45 83 147/94 11/07/17 08:00 98.1 83 18 147/94 100 Mechanical Ventilator 50 98.1 11/07/17 08:00 50 11/07/17 08:00 72 11/07/17 07:29 89 18 50 11/07/17 05:48 99 18 50 11/07/17 04:00 76 11/07/17 04:00 50 11/07/17 04:00 98.7 84 18 146/83 100 Mechanical Ventilator 50 98.7 11/07/17 03:30 91 18 50 11/07/17 01:27 100 18 50 11/07/17 00:00 98.9 97 20 145/91 97 Mechanical Ventilator 50 98.9 11/07/17 00:00 89 11/06/17 23:13 95 18 50 11/06/17 21:05 104 114/100 11/06/17 20:58 104 21 30 General Appearance: on vent, patient on isolation Intake and Output 11/06/17 11/07/17 19:00 07:00 Intake Total 940 ml 690 ml Output Total 825 ml 1350 ml Balance 115 ml -660 ml Free Water 150 ml 50 ml IV Total 200 ml 100 ml Tube Feeding 540 ml 540 ml Other 50 ml Output Urine Total 825 ml 1300 ml Stool Total 50 ml Laboratory Tests Test 11/07/17 04:30 White Blood Count 22.4 K/UL (4.8-10.8) *H Red Blood Count 2.60 M/UL (4.70-6.10) L Hemoglobin 8.1 G/DL (14.2-18.0) #L Hematocrit 22.9 % (42.0-52.0) L Mean Corpuscular Volume 88 FL (80-99) Mean Corpuscular Hemoglobin 31.1 PG (27.0-31.0) H Mean Corpuscular Hemoglobin Concent 35.4 G/DL (32.0-36.0) Red Cell Distribution Width 15.1 % (11.6-14.8) H Platelet Count 332 K/UL (150-450) Mean Platelet Volume 6.1 FL (6.5-10.1) L Neutrophils (%) (Auto) % (45.0-75.0) Lymphocytes (%) (Auto) % (20.0-45.0) Monocytes (%) (Auto) % (1.0-10.0) Eosinophils (%) (Auto) % (0.0-3.0) Basophils (%) (Auto) % (0.0-2.0) Differential Total Cells Counted 100 Neutrophils % (Manual) 86 % (45-75) H Lymphocytes % (Manual) 5 % (20-45) L Monocytes % (Manual) 8 % (1-10) Eosinophils % (Manual) 1 % (0-3) Basophils % (Manual) 0 % (0-2) Band Neutrophils 0 % (0-8) Platelet Estimate Adequate Platelet Morphology Normal Hypochromasia 1+ Anisocytosis 1+ Prothrombin Time 13.4 SEC (9.30-11.50) H Prothromb Time International Ratio 1.3 (0.9-1.1) H Activated Partial Thromboplast Time 27 SEC (23-33) Sodium Level 145 MMOL/L (136-145) Potassium Level 3.1 MMOL/L (3.5-5.1) L Chloride Level 106 MMOL/L (98-107) Carbon Dioxide Level 34 MMOL/L (21-32) H Anion Gap 5 mmol/L (5-15) Blood Urea Nitrogen 58 mg/dL (7-18) H Creatinine 5.5 MG/DL (0.55-1.30) H Estimat Glomerular Filtration Rate 12.8 mL/min (>60) Glucose Level 109 MG/DL (74-106) H Calcium Level 7.9 MG/DL (8.5-10.1) L Phosphorus Level 5.4 MG/DL (2.5-4.9) H Magnesium Level 1.7 MG/DL (1.8-2.4) L Total Bilirubin 0.5 MG/DL (0.2-1.0) Aspartate Amino Transf (AST/SGOT) 26 U/L (15-37) Alanine Aminotransferase (ALT/SGPT) 40 U/L (12-78) Alkaline Phosphatase 107 U/L (46-116) Total Protein 5.4 G/DL (6.4-8.2) L Albumin 1.3 G/DL (3.4-5.0) L Globulin 4.1 g/dL Albumin/Globulin Ratio 0.3 (1.0-2.7) L CHRISTEN LOVE Nov 07, 2017 20:03
[2017-11-07] MEDS: Dyna-Hex 2% Top Sol 2oz TOPIC SCH (20:49)
[2017-11-08] VITALS (8 sets, daily range): BP systolic 135–162; BP diastolic 54–100
[2017-11-08 06:29] LABS: HEMATOCRIT 23.9 % (42.0-52.0); HEMOGLOBIN 8.2 G/DL (14.2-18.0); MEAN CORPUSCULAR VOLUME 89 FL (80-99); PLATELET COUNT 450 K/UL (150-450); RED BLOOD COUNT 2.69 M/UL (4.70-6.10); RED CELL DISTRIBUTION WIDTH 14.8 % (11.6-14.8)
[2017-11-08 06:32] LABS: ANION GAP 5 mmol/L (5-15); BLOOD UREA NITROGEN 61 mg/dL (7-18); CALCIUM 8.2 MG/DL (8.5-10.1); CARBON DIOXIDE 32 MMOL/L (21-32); CHLORIDE 107 MMOL/L (98-107); CREATININE 5.6 MG/DL (0.55-1.30); POTASSIUM 3.3 MMOL/L (3.5-5.1); SODIUM 144 MMOL/L (136-145)
[2017-11-08 06:49] LABS: WHITE BLOOD COUNT 25.2 K/UL (4.8-10.8)
--- NOTE | 2017-11-08 08:02 | Pulmonolgy Critical Care Note ---
Critical Care - Asmt/Plan Problems: (1) Acute renal failure (ARF) (2) Acute respiratory failure (3) Pneumonia (4) Sepsis (5) C. difficile colitis (6) Feeding by G-tube (7) Epileptic seizure, generalized Respiratory: monitor respiratory rate, adjust FIO2, CXR Cardiac: continue to monitor HR/BP Renal: F/U I&O, keep IV fluid Infectious Disease: check cultures, continue antibiotics Gastrointestinal: continue feedings/current rate Endocrine: monitor blood sugar, check TSH, check HgA1C, continue sliding scale insulin Hematologic: monitor H/H, transfuse if hgb<8.5 Neurologic: keep patient comfortable Prophylaxis: Protonix, Heparin Notes Reviewed: information technology specialist, cardio, renal Discussed with: nurses, consultants, rn case mgrretail analytics manager - Objective Last 24 Hour Vital Signs Date Time Temp Pulse Resp B/P (MAP) Pulse Ox O2 Delivery O2 Flow Rate FiO2 11/08/17 06:30 97 18 40 11/08/17 05:22 92 18 40 11/08/17 04:00 98.8 97 22 147/90 100 Mechanical Ventilator 50 98.8 11/08/17 04:00 50 11/08/17 04:00 89 11/08/17 03:28 97 18 40 11/08/17 00:00 96 11/08/17 00:00 50 11/08/17 00:00 98.6 90 19 135/83 100 Mechanical Ventilator 50 98.6 11/07/17 23:02 95 18 40 11/07/17 21:29 99 18 40 11/07/17 20:50 97 146/87 11/07/17 20:00 98.6 88 19 146/87 100 Mechanical Ventilator 50 98.6 11/07/17 20:00 50 11/07/17 19:44 96 11/07/17 19:26 84 18 50 11/07/17 16:39 88 18 50 11/07/17 16:00 99.1 88 19 144/93 100 Mechanical Ventilator 50 99.1 11/07/17 16:00 80 11/07/17 16:00 50 11/07/17 14:47 94 18 50 11/07/17 13:11 86 18 50 11/07/17 12:00 83 11/07/17 12:00 50 11/07/17 12:00 99.2 90 16 138/96 100 Mechanical Ventilator 50 99.2 2/28/18 11:19 89 18 50 11/07/17 09:28 91 18 50 11/07/17 08:45 83 147/94 Status: awake Condition: critical HEENT: atraumatic Lungs: clear Heart: HR/BP stable, HR/BP unstable Abdomen: soft, non-tender, feeding tube Extremities: no C/C/E Decubiti: location Critical Care - Subjective ROS Limited/Unobtainable: No Condition: critical EKG Rhythm: Sinus Rhythm FI02: 40 Vent Support Breath Rate: 18 Vent Support Mode: AC Vent Tidal Volume: 550 Sputum Amount: Moderate PEEP: 5.0 PIP: 22 Tube Feeding Amount: 45 I&O: Intake and Output 11/07/17 11/08/17 19:00 07:00 Intake Total 790 ml 705 ml Output Total 1000 ml 1250 ml Balance -210 ml -545 ml Free Water 150 ml 150 ml IV Total 100 ml Tube Feeding 540 ml 495 ml Other 60 ml Output Urine Total 1000 ml 1200 ml Stool Total 50 ml # Bowel Movements 30 CXR: no change ET-Tube: 8.0 ET Position: 24 Labs: Laboratory Tests Test 11/08/17 06:00 White Blood Count 25.2 K/UL (4.8-10.8) *H Red Blood Count 2.69 M/UL (4.70-6.10) L Hemoglobin 8.2 G/DL (14.2-18.0) L Hematocrit 23.9 % (42.0-52.0) L Mean Corpuscular Volume 89 FL (80-99) Mean Corpuscular Hemoglobin 30.4 PG (27.0-31.0) Mean Corpuscular Hemoglobin Concent 34.1 G/DL (32.0-36.0) Red Cell Distribution Width 14.8 % (11.6-14.8) Platelet Count 450 K/UL (150-450) Mean Platelet Volume 5.7 FL (6.5-10.1) L Neutrophils (%) (Auto) % (45.0-75.0) Lymphocytes (%) (Auto) % (20.0-45.0) Monocytes (%) (Auto) % (1.0-10.0) Eosinophils (%) (Auto) % (0.0-3.0) Basophils (%) (Auto) % (0.0-2.0) Neutrophils % (Manual) Pending Lymphocytes % (Manual) Pending Platelet Estimate Pending Platelet Morphology Pending Sodium Level 144 MMOL/L (136-145) Potassium Level 3.3 MMOL/L (3.5-5.1) L Chloride Level 107 MMOL/L (98-107) Carbon Dioxide Level 32 MMOL/L (21-32) Anion Gap 5 mmol/L (5-15) Blood Urea Nitrogen 61 mg/dL (7-18) H Creatinine 5.6 MG/DL (0.55-1.30) H Estimat Glomerular Filtration Rate 12.6 mL/min (>60) Glucose Level 110 MG/DL (74-106) H Calcium Level 8.2 MG/DL (8.5-10.1) EDDIE KNAPP Nov 08, 2017 08:02
[2017-11-08] MEDS: Renvela 800mg Pkt NG SCH ×3 (08:40→18:25)
[2017-11-08] MEDS: Vancomycin oral 125mg/2.5ml ORAL SCH ×4 (08:40→23:16)
[2017-11-08] MEDS: Metoprolol 25mg tab GT SCH ×2 (08:40→20:50)
[2017-11-08] MEDS: Lactobacillus-GG tablet GT SCH ×3 (08:40→18:25)
--- NOTE | 2017-11-08 11:22 | GI Progress Note ---
Assessment/Plan Problems: (1) Dysphagia ICD Codes: R13.10 - Dysphagia, unspecified SNOMED: 63023841, 740535562 (2) Dementia ICD Codes: F03.90 - Unspecified dementia without behavioral disturbance SNOMED: 63132071 (3) PEG (percutaneous endoscopic gastrostomy) adjustment/replacement/removal ICD Codes: Z43.1 - Encounter for attention to gastrostomy SNOMED: 708041029, 742008507 (4) CVA, old, hemiparesis ICD Codes: I69.359 - Hemiplegia and hemiparesis following cerebral infarction affecting unspecified side SNOMED: 87797286, 56498660, [id number] Status: not improved Status Narrative Discussed with Dr. Campos. Assessment/Plan s/p EGD and hemostasis cdiff positive >> dc ppi, H2B BID gastric lavage performed by RN with no evidence of gastric bleed monitor H&H, prn transfusion cont GTFs per RD GT site care BID/prn abx poor prognosis fu labs Subjective Subjective limited Objective Last 24 Hour Vital Signs Date Time Temp Pulse Resp B/P (MAP) Pulse Ox O2 Delivery O2 Flow Rate FiO2 11/08/17 09:00 93 18 40 11/08/17 08:40 96 154/90 11/08/17 08:00 93 11/08/17 08:00 98.1 96 18 154/90 98 Mechanical Ventilator 50 98.1 11/08/17 08:00 50 11/08/17 06:30 97 18 40 11/08/17 05:22 92 18 40 11/08/17 04:00 98.8 97 22 147/90 100 Mechanical Ventilator 50 98.8 11/08/17 04:00 50 11/08/17 04:00 89 11/08/17 03:28 97 18 40 11/08/17 00:00 96 11/08/17 00:00 50 11/08/17 00:00 98.6 90 19 135/83 100 Mechanical Ventilator 50 98.6 11/07/17 23:02 95 18 40 11/07/17 21:29 99 18 40 11/07/17 20:50 97 146/87 11/07/17 20:00 98.6 88 19 146/87 100 Mechanical Ventilator 50 98.6 11/07/17 20:00 50 11/07/17 19:44 96 11/07/17 19:26 84 18 50 11/07/17 16:39 88 18 50 11/07/17 16:00 99.1 88 19 144/93 100 Mechanical Ventilator 50 99.1 11/07/17 16:00 80 11/07/17 16:00 50 11/07/17 14:47 94 18 50 11/07/17 13:11 86 18 50 11/07/17 12:00 83 11/07/17 12:00 50 11/07/17 12:00 99.2 90 16 138/96 100 Mechanical Ventilator 50 99.2 Intake and Output 11/07/17 11/08/17 19:00 07:00 Intake Total 790 ml 705 ml Output Total 1000 ml 1250 ml Balance -210 ml -545 ml Free Water 150 ml 150 ml IV Total 100 ml Tube Feeding 540 ml 495 ml Other 60 ml Output Urine Total 1000 ml 1200 ml Stool Total 50 ml # Bowel Movements 30 Laboratory Tests Test 11/08/17 06:00 White Blood Count 25.2 K/UL (4.8-10.8) *H Red Blood Count 2.69 M/UL (4.70-6.10) L Hemoglobin 8.2 G/DL (14.2-18.0) L Hematocrit 23.9 % (42.0-52.0) L Mean Corpuscular Volume 89 FL (80-99) Mean Corpuscular Hemoglobin 30.4 PG (27.0-31.0) Mean Corpuscular Hemoglobin Concent 34.1 G/DL (32.0-36.0) Red Cell Distribution Width 14.8 % (11.6-14.8) Platelet Count 450 K/UL (150-450) Mean Platelet Volume 5.7 FL (6.5-10.1) L Neutrophils (%) (Auto) % (45.0-75.0) Lymphocytes (%) (Auto) % (20.0-45.0) Monocytes (%) (Auto) % (1.0-10.0) Eosinophils (%) (Auto) % (0.0-3.0) Basophils (%) (Auto) % (0.0-2.0) Differential Total Cells Counted 100 Neutrophils % (Manual) 82 % (45-75) H Lymphocytes % (Manual) 10 % (20-45) L Monocytes % (Manual) 7 % (1-10) Eosinophils % (Manual) 1 % (0-3) Basophils % (Manual) 0 % (0-2) Band Neutrophils 0 % (0-8) Platelet Estimate Adequate Platelet Morphology Normal Anisocytosis 1+ Sodium Level 144 MMOL/L (136-145) Potassium Level 3.3 MMOL/L (3.5-5.1) L Chloride Level 107 MMOL/L (98-107) Carbon Dioxide Level 32 MMOL/L (21-32) Anion Gap 5 mmol/L (5-15) Blood Urea Nitrogen 61 mg/dL (7-18) H Creatinine 5.6 MG/DL (0.55-1.30) H Estimat Glomerular Filtration Rate 12.6 mL/min (>60) Glucose Level 110 MG/DL (74-106) H Calcium Level 8.2 MG/DL (8.5-10.1) L Height (Feet): 5 Height (Inches): 6.00 Weight (Pounds): 185 General Appearance: alert Cardiovascular: normal rate Respiratory/Chest: normal breath sounds, no respiratory distress, other - trach to vent Abdominal Exam: GT site - dressing changed Laura Lucas N.P. Nov 08, 2017 11:22
--- NOTE | 2017-11-08 13:53 | Infectious Diseases Prog Note ---
Assessment/Plan Assessment/Plan A C Diff +ve, diarrhea mild improvement Fever, SP Leukocytosis, overall improving -CXR: 10/30 : Slightly increased hazy opacity left lung base and obscuration of left hemidiaphragm, may reflect increased infiltrates and/or pleural fluid E.coli UTI w/ bacteremia ; s/p Rx -REnal US: Limited exam. No definite hydronephrosis. Empty bladder, containing a Cervantes catheter. Suspicion for Flu despite rapid test (+URI symptoms, sick contacts); s/p Rx ? Pneum -CXR 10/26: There is right basilar and right perihilar atelectasis and possibly minimal consolidation. Left lung and bilateral pleural spaces remain clear. -Influenza neg Acute hypoxic resp failure- intubated (10/20) , SP Trach 10/23 12/18 KUB : Distended small bowel. Ileus versus obstruction. SP cardiac arrest 10/26 SP hemorrhagic shock (drop Hgb 10.8 to 5)- 10/12 GIB- transaminitis due to shock improving JULIA on HD , HD cath Lactic acidosis, resolved UGI bleed / Anemia SP EGD 10/18 and 10/26 Path: H Pylori Neg CVA with hemiplegia HTN cataract dysphagia Hx of fall CAD/FL CVA/TIA dementia seizure disorder Plan: -Continue Flagyl and oral Vanco d# / 10/30 SP Meropenem d# 5 - 10/29 SP IV Vanco # 10 - 10/26 SP Zosyn #6 - 10/21 SP Ceftriaxone 2 g qd d# 11 - 10/17 SP empiric Tamiflu #6/5 -/ SP IV Vancomcyin #5, Meropenm #3 -10/13 SP Cefepime #3 -Monitor CBC/BMP, temperatures; -aspiration precautions - vent Support - CT of Abd Subjective Allergies: Uncoded Allergies: TAPE (Adverse Reaction, Mild, 11/09/17) REDNESS AT TAPE SITE WHEN APPLIED TAPE Subjective afebrile Objective Vital Signs Last 24 Hour Vital Signs Date Time Temp Pulse Resp B/P (MAP) Pulse Ox O2 Delivery O2 Flow Rate FiO2 11/08/17 12:55 82 22 40 11/08/17 12:00 77 11/08/17 12:00 98.5 83 18 154/54 99 Mechanical Ventilator 50 98.5 3/1/18 12:00 50 11/08/17 10:45 82 18 40 11/08/17 09:00 93 18 40 11/08/17 08:40 96 154/90 11/08/17 08:00 93 11/08/17 08:00 98.1 96 18 154/90 98 Mechanical Ventilator 50 98.1 11/08/17 08:00 50 11/08/17 06:30 97 18 40 11/08/17 05:22 92 18 40 11/08/17 04:00 98.8 97 22 147/90 100 Mechanical Ventilator 50 98.8 11/08/17 04:00 50 11/08/17 04:00 89 11/08/17 03:28 97 18 40 11/08/17 00:00 96 11/08/17 00:00 50 11/08/17 00:00 98.6 90 19 135/83 100 Mechanical Ventilator 50 98.6 11/07/17 23:02 95 18 40 11/07/17 21:29 99 18 40 11/07/17 20:50 97 146/87 11/07/17 20:00 98.6 88 19 146/87 100 Mechanical Ventilator 50 98.6 11/07/17 20:00 50 11/07/17 19:44 96 11/07/17 19:26 84 18 50 11/07/17 16:39 88 18 50 11/07/17 16:00 99.1 88 19 144/93 100 Mechanical Ventilator 50 99.1 11/07/17 16:00 80 11/07/17 16:00 50 11/07/17 14:47 94 18 50 Height (Feet): 5 Height (Inches): 6.00 Weight (Pounds): 185 HEENT: anicteric Respiratory/Chest: no respiratory distress Cardiovascular: regularly irregular Abdomen: soft, non tender Laboratory Tests Test 11/08/17 06:00 White Blood Count 25.2 K/UL (4.8-10.8) *H Red Blood Count 2.69 M/UL (4.70-6.10) L Hemoglobin 8.2 G/DL (14.2-18.0) L Hematocrit 23.9 % (42.0-52.0) L Mean Corpuscular Volume 89 FL (80-99) Mean Corpuscular Hemoglobin 30.4 PG (27.0-31.0) Mean Corpuscular Hemoglobin Concent 34.1 G/DL (32.0-36.0) Red Cell Distribution Width 14.8 % (11.6-14.8) Platelet Count 450 K/UL (150-450) Mean Platelet Volume 5.7 FL (6.5-10.1) L Neutrophils (%) (Auto) % (45.0-75.0) Lymphocytes (%) (Auto) % (20.0-45.0) Monocytes (%) (Auto) % (1.0-10.0) Eosinophils (%) (Auto) % (0.0-3.0) Basophils (%) (Auto) % (0.0-2.0) Differential Total Cells Counted 100 Neutrophils % (Manual) 82 % (45-75) H Lymphocytes % (Manual) 10 % (20-45) L Monocytes % (Manual) 7 % (1-10) Eosinophils % (Manual) 1 % (0-3) Basophils % (Manual) 0 % (0-2) Band Neutrophils 0 % (0-8) Platelet Estimate Adequate Platelet Morphology Normal Anisocytosis 1+ Sodium Level 144 MMOL/L (136-145) Potassium Level 3.3 MMOL/L (3.5-5.1) L Chloride Level 107 MMOL/L (98-107) Carbon Dioxide Level 32 MMOL/L (21-32) Anion Gap 5 mmol/L (5-15) Blood Urea Nitrogen 61 mg/dL (7-18) H Creatinine 5.6 MG/DL (0.55-1.30) H Estimat Glomerular Filtration Rate 12.6 mL/min (>60) Glucose Level 110 MG/DL (74-106) H Calcium Level 8.2 MG/DL (8.5-10.1) L Current Medications Medications (Trade) Dose Ordered Sig/Olvin Route PRN Reason Start Time Stop Time Status Last Admin Dose Admin Acetaminophen (Tylenol) 650 mg Q4H PRN RECTAL Mild Pain (Pain Scale 1-3) 10/30/17 21:00 11/20/17 20:59 Albuterol/ Ipratropium (Albuterol/ Ipratropium) 3 ml Q4HRT PRN HHN sob 11/07/17 12:15 11/12/17 12:14 Chlorhexidine Gluconate (Pamela-Hex 2%) 1 applic DAILY@1999 TOPIC 10/31/17 22:00 11/23/17 21:59 11/07/17 20:49 Famotidine (Pepcid I.v.) 20 mg Q24HRS IVP 10/30/17 21:30 11/29/17 21:29 11/07/17 20:50 Lactobacillus Acidophilus (Culturelle) 1 tab THREE TIMES A DAY GT 11/03/17 13:00 12/03/17 12:59 11/08/17 13:05 Lorazepam (Ativan 2mg/ml 1ml) 2 mg Q4H PRN IV For Anxiety 11/05/17 20:45 11/12/17 20:44 11/06/17 02:20 Metoclopramide HCl (Reglan) 5 mg Q6H PRN GT Irrectractable Nausea/Vomiting 10/30/17 21:00 11/29/17 20:59 Metoprolol Tartrate (Lopressor) 25 mg Q12HR GT 10/30/17 21:30 11/29/17 21:29 11/08/17 08:40 Metronidazole 100 ml @ 100 mls/hr Q8HR IV 10/30/17 22:00 11/09/17 23:59 11/08/17 05:56 Nitroglycerin (Ntg) 0.4 mg Q5MIN X 3 DOSES PRN SL Prn Chest Pain 10/30/17 20:45 11/14/17 17:09 Ondansetron HCl (Zofran) 4 mg Q6H PRN IVP Nausea & Vomiting 10/30/17 21:00 11/29/17 20:59 Sevelamer Carbonate (Renvela) 1,600 mg THREE TIMES A DAY NG 11/04/17 13:00 12/04/17 12:59 11/08/17 13:05 Vancomycin HCl (Vancomycin) 125 mg FOUR TIMES A DAY ORAL 10/30/17 21:30 11/09/17 23:59 11/08/17 13:05 FAUSTINO AGARWAL M.D. Nov 08, 2017 13:53
--- NOTE | 2017-11-08 15:40 | Nephrology Progress Note ---
Assessment/Plan Problem List: (1) Acute renal failure (ARF) (2) Respiratory failure (3) Shock liver Assessment JULIA , due to Shock , Hemorrhagic / Septic / C dif colitis worsenning anemia Off Pressors- Shock liver resolving High Troponin: DE Bradycardic - Vfib cardiac arrest 10/26 likely 2ry to hemorrhagic shock (drop Hgb 10.8 to 5) - GIB- Fever, ongoing Leukocytosis, worsening after code E.coli UTI w/ bacteremia Acute hypoxic resp failure- s/p Trach . Plan Plan: dialyse 11/06 next 11/08 has new cath right chest right groin cath removed being transfused add Renvela and Lactobacillus BP stablized start GT feeding HD trial as needed- on C dif treatment protocol monitor urine out put and Renal parameters discussed with RN Subjective ROS Limited/Unobtainable: Yes Objective Objective Last 24 Hour Vital Signs Date Time Temp Pulse Resp B/P (MAP) Pulse Ox O2 Delivery O2 Flow Rate FiO2 11/08/17 15:06 82 19 40 11/08/17 14:00 Mechanical Ventilator 40.0 11/08/17 14:00 98.5 82 20 154/94 Endotracheal Tube 40 98.5 11/08/17 12:55 82 22 40 11/08/17 12:00 77 11/08/17 12:00 98.5 83 18 154/54 99 Mechanical Ventilator 50 98.5 11/08/17 12:00 50 11/08/17 10:45 82 18 40 11/08/17 09:00 93 18 40 11/08/17 08:40 96 154/90 11/08/17 08:00 93 11/08/17 08:00 98.1 96 18 154/90 98 Mechanical Ventilator 50 98.1 11/08/17 08:00 50 11/08/17 06:30 97 18 40 11/08/17 05:22 92 18 40 11/08/17 04:00 98.8 97 22 147/90 100 Mechanical Ventilator 50 98.8 11/08/17 04:00 50 11/08/17 04:00 89 11/08/17 03:28 97 18 40 11/08/17 00:00 96 11/08/17 00:00 50 11/08/17 00:00 98.6 90 19 135/83 100 Mechanical Ventilator 50 98.6 11/07/17 23:02 95 18 40 11/07/17 21:29 99 18 40 11/07/17 20:50 97 146/87 11/07/17 20:00 98.6 88 19 146/87 100 Mechanical Ventilator 50 98.6 11/07/17 20:00 50 11/07/17 19:44 96 11/07/17 19:26 84 18 50 11/07/17 16:39 88 18 50 11/07/17 16:00 99.1 88 19 144/93 100 Mechanical Ventilator 50 99.1 11/07/17 16:00 80 11/07/17 16:00 50 Intake and Output 11/07/17 11/08/17 19:00 07:00 Intake Total 790 ml 750 ml Output Total 1000 ml 1250 ml Balance -210 ml -500 ml Free Water 150 ml 150 ml IV Total 100 ml Tube Feeding 540 ml 540 ml Other 60 ml Output Urine Total 1000 ml 1200 ml Stool Total 50 ml # Bowel Movements 30 Laboratory Tests 11/08/17 06:00: White Blood Count 25.2*H, Red Blood Count 2.69L, Hemoglobin 8.2L, Hematocrit 23.9L, Mean Corpuscular Volume 89, Mean Corpuscular Hemoglobin 30.4, Mean Corpuscular Hemoglobin Concent 34.1, Red Cell Distribution Width 14.8, Platelet Count 450, Mean Platelet Volume 5.7L, Neutrophils (%) (Auto) , Lymphocytes (%) ( Auto) , Monocytes (%) (Auto) , Eosinophils (%) (Auto) , Basophils (%) (Auto) , Differential Total Cells Counted 100, Neutrophils % (Manual) 82H, Lymphocytes % (Manual) 10L, Monocytes % (Manual) 7, Eosinophils % (Manual) 1, Basophils % ( Manual) 0, Band Neutrophils 0, Platelet Estimate Adequate, Platelet Morphology Normal, Anisocytosis 1+, Sodium Level 144, Potassium Level 3.3L, Chloride Level 107, Carbon Dioxide Level 32, Anion Gap 5, Blood Urea Nitrogen 61H, Creatinine 5.6H, Estimat Glomerular Filtration Rate 12.6, Glucose Level 110H, Calcium Level 8.2L Height (Feet): 5 Height (Inches): 6.00 Weight (Pounds): 185 General Appearance: no apparent distress Respiratory/Chest: decreased breath sounds Abdomen: distended Objective no other change YVES SINHA Nov 08, 2017 15:40
[2017-11-08] MEDS: Dyna-Hex 2% Top Sol 2oz TOPIC SCH (20:50)
[2017-11-08] MEDS: Metoclopramide 10mg/10ml Liq GT PRN (23:16)
[2017-11-09] VITALS: BP 128/58
[2017-11-09 04:30] VITALS: BP 148/91
[2017-11-09 05:31] LABS: HEMOGLOBIN 7.5 G/DL (14.2-18.0); MEAN CORPUSCULAR VOLUME 90 FL (80-99); PLATELET COUNT 363 K/UL (150-450); RED BLOOD COUNT 2.44 M/UL (4.70-6.10); RED CELL DISTRIBUTION WIDTH 14.9 % (11.6-14.8)
[2017-11-09 06:04] LABS: ALANINE AMINOTRANSFERASE 30 U/L (12-78); ALBUMIN 1.4 G/DL (3.4-5.0); ALBUMIN/GLOBULIN RATIO 0.3 (1.0-2.7); ALKALINE PHOSPHATASE 127 U/L (46-116); ANION GAP 5 mmol/L (5-15); ASPARTATE AMINO TRANSFERASE 29 U/L (15-37); BILIRUBIN,TOTAL 0.4 MG/DL (0.2-1.0); BLOOD UREA NITROGEN 50 mg/dL (7-18); CARBON DIOXIDE 33 MMOL/L (21-32); CHLORIDE 107 MMOL/L (98-107); CREATININE 4.6 MG/DL (0.55-1.30); PHOSPHORUS 4.4 MG/DL (2.5-4.9); POTASSIUM 2.9 MMOL/L (3.5-5.1); SODIUM 145 MMOL/L (136-145)
[2017-11-09 06:09] LABS: WHITE BLOOD COUNT 23.6 K/UL (4.8-10.8)
[2017-11-09 08:00] VITALS: BP 137/78
[2017-11-09] MEDS: Renvela 800mg Pkt NG SCH ×3 (09:31→18:06)
[2017-11-09] MEDS: Metoprolol 25mg tab GT SCH ×2 (09:32→21:39)
[2017-11-09] MEDS: Lactobacillus-GG tablet GT SCH ×3 (09:33→18:06)
[2017-11-09] MEDS: Vancomycin oral 125mg/2.5ml ORAL SCH ×4 (09:36→21:40)
[2017-11-09] MEDS ORDERED: Potassium Chloride 40 MEQ in Sodium Chloride 500ML 550 ML IVPB ONE (11:30)
--- NOTE | 2017-11-09 11:36 | Diagnostic Imaging Report ---
Indication: Dyspnea Comparison: 11/05/2017 A single view chest radiograph was obtained. Findings: The right hemithorax has completely opacified since the last examination. There is some volume loss with shifting of the heart and trachea toward the right, indicative of volume loss and atelectasis. There is a possible right bronchial cut off sign, possibly indicative of mucus plugging which may result in post obstructive atelectasis. Consider bronchoscopy. There is a tracheostomy present. Right subclavian line and right jugular dialysis catheters are again noted in good position. There is a small left pleural effusion. Bones are osteopenic. IMPRESSION: Complete opacification of the right hemithorax with volume loss indicating possible post-obstructive atelectasis. Consider bronchoscopy. Right jugular Thompson catheter in good position
--- NOTE | 2017-11-09 11:51 | Pulmonolgy Critical Care Note ---
Critical Care - Asmt/Plan Problems: (1) Collapse of right lung (2) Acute respiratory failure (3) Acute renal failure (ARF) (4) Pneumonia (5) Sepsis (6) Epileptic seizure, generalized (7) Feeding by G-tube (8) C. difficile colitis Respiratory: monitor respiratory rate, CXR - right lung collpase, other - keep right chest elevated Cardiac: continue to monitor HR/BP Renal: F/U I&O, keep IV fluid, check electrolytes Infectious Disease: check cultures Gastrointestinal: continue feedings/current rate Endocrine: monitor blood sugar, continue sliding scale insulin Hematologic: monitor H/H, transfuse if hgb<8.5 Neurologic: PRN Ativan, PRN Morphine, keep patient comfortable Prophylaxis: Protonix, Heparin Time Spent (Minutes): 40 Notes Reviewed: cardio, renal Discussed with: nurses, consultants, embedded case managerclinique counter manager - Objective Last 24 Hour Vital Signs Date Time Temp Pulse Resp B/P (MAP) Pulse Ox O2 Delivery O2 Flow Rate FiO2 11/09/17 10:55 96 18 40 11/09/17 09:32 88 137/78 11/09/17 09:22 101 19 40 11/09/17 08:00 97.7 88 18 137/78 97 40 97.7 11/09/17 08:00 90 11/09/17 08:00 40 11/09/17 06:58 91 18 40 11/09/17 05:19 108 20 40 11/09/17 04:30 98.9 93 19 148/91 97 Mechanical Ventilator 40 98.9 11/09/17 04:12 40 11/09/17 04:00 101 11/09/17 02:48 98 19 40 11/09/17 01:20 88 20 40 11/09/17 00:00 97.9 95 20 128/58 96 Mechanical Ventilator 40 97.9 11/09/17 00:00 40 11/09/17 00:00 93 11/08/17 22:59 89 18 40 11/08/17 20:50 95 162/94 11/08/17 20:46 95 18 40 11/08/17 20:00 40 11/08/17 20:00 98.2 89 18 161/59 95 Mechanical Ventilator 40 98.2 11/08/17 19:29 95 19 40 11/08/17 19:27 97 11/08/17 17:30 Mechanical Ventilator 40 11/08/17 17:30 98.4 89 20 162/94 Mechanical Ventilator 40 98.4 11/08/17 17:29 85 19 40 11/08/17 16:00 98.1 90 18 152/100 Endotracheal Tube 40 98.1 11/08/17 16:00 86 11/08/17 16:00 50 11/08/17 15:06 82 19 40 11/08/17 14:00 Mechanical Ventilator 40.0 11/08/17 14:00 98.5 82 20 154/94 Endotracheal Tube 40 98.5 11/08/17 12:55 82 22 40 11/08/17 12:00 77 11/08/17 12:00 98.5 83 18 154/54 99 Mechanical Ventilator 50 98.5 11/08/17 12:00 50 Status: awake Condition: critical HEENT: atraumatic Neck: full ROM Lungs: clear Heart: HR/BP stable Abdomen: soft, non-tender, feeding tube Extremities: edema Critical Care - Subjective ROS Limited/Unobtainable: No Condition: critical EKG Rhythm: Sinus Rhythm FI02: 40 Vent Support Breath Rate: 18 Vent Support Mode: AC Vent Tidal Volume: 550 Sputum Amount: Moderate PEEP: 5.0 PIP: 23 Tube Feeding Amount: 0 I&O: Intake and Output 11/08/17 11/09/17 19:00 07:00 Intake Total 640 ml 495 ml Output Total 2000 ml 850 ml Balance -1360 ml -355 ml Free Water 100 ml Tube Feeding 540 ml 495 ml Output Urine Total 1950 ml 850 ml Stool Total 50 ml Hemodialysis UF 0 ml CXR: right lung collapse ET-Tube: 8.0 ET Position: 24 Labs: Laboratory Tests Test 11/09/17 05:00 White Blood Count 23.6 K/UL (4.8-10.8) *H Red Blood Count 2.44 M/UL (4.70-6.10) L Hemoglobin 7.5 G/DL (14.2-18.0) L Hematocrit 22.0 % (42.0-52.0) L Mean Corpuscular Volume 90 FL (80-99) Mean Corpuscular Hemoglobin 30.7 PG (27.0-31.0) Mean Corpuscular Hemoglobin Concent 34.1 G/DL (32.0-36.0) Red Cell Distribution Width 14.9 % (11.6-14.8) H Platelet Count 363 K/UL (150-450) Mean Platelet Volume 5.7 FL (6.5-10.1) L Neutrophils (%) (Auto) % (45.0-75.0) Lymphocytes (%) (Auto) % (20.0-45.0) Monocytes (%) (Auto) % (1.0-10.0) Eosinophils (%) (Auto) % (0.0-3.0) Basophils (%) (Auto) % (0.0-2.0) Differential Total Cells Counted 100 Neutrophils % (Manual) 79 % (45-75) H Lymphocytes % (Manual) 16 % (20-45) L Monocytes % (Manual) 4 % (1-10) Eosinophils % (Manual) 1 % (0-3) Basophils % (Manual) 0 % (0-2) Band Neutrophils 0 % (0-8) Platelet Estimate Adequate Platelet Morphology Normal Hypochromasia 1+ Anisocytosis 1+ Sodium Level 145 MMOL/L (136-145) Potassium Level 2.9 MMOL/L (3.5-5.1) L Chloride Level 107 MMOL/L (98-107) Carbon Dioxide Level 33 MMOL/L (21-32) H Anion Gap 5 mmol/L (5-15) Blood Urea Nitrogen 50 mg/dL (7-18) H Creatinine 4.6 MG/DL (0.55-1.30) H Estimat Glomerular Filtration Rate 15.9 mL/min (>60) Glucose Level 123 MG/DL (74-106) H Calcium Level 8.0 MG/DL (8.5-10.1) L Phosphorus Level 4.4 MG/DL (2.5-4.9) Magnesium Level 1.7 MG/DL (1.8-2.4) L Total Bilirubin 0.4 MG/DL (0.2-1.0) Aspartate Amino Transf (AST/SGOT) 29 U/L (15-37) Alanine Aminotransferase (ALT/SGPT) 30 U/L (12-78) Alkaline Phosphatase 127 U/L (46-116) H Total Protein 6.0 G/DL (6.4-8.2) L Albumin 1.4 G/DL (3.4-5.0) L Globulin 4.6 g/dL Albumin/Globulin Ratio 0.3 (1.0-2.7) L Hepatitis B Surface Antigen Pending Hepatitis B Surface Antibody, Quant Pending Hepatitis C Antibody Pending EDDIE COLES Nov 09, 2017 11:51
[2017-11-09 12:00] VITALS: BP 114/53
--- NOTE | 2017-11-09 13:08 | GI Progress Note ---
Assessment/Plan Problems: (1) Dysphagia ICD Codes: R13.10 - Dysphagia, unspecified SNOMED: 57157079, 629505072 (2) Dementia ICD Codes: F03.90 - Unspecified dementia without behavioral disturbance SNOMED: 53933543 (3) PEG (percutaneous endoscopic gastrostomy) adjustment/replacement/removal ICD Codes: Z43.1 - Encounter for attention to gastrostomy SNOMED: 559127216, 121547083 (4) CVA, old, hemiparesis ICD Codes: I69.359 - Hemiplegia and hemiparesis following cerebral infarction affecting unspecified side SNOMED: 71679964, 37390555, [id number] Status: stable Status Narrative Discussed with Dr. Campos. Assessment/Plan s/p EGD and hemostasis cdiff positive >> dc ppi, H2B BID gastric lavage performed by RN with no evidence of gastric bleed monitor H&H, prn transfusion cont GTFs per RD GT site care BID/prn abx poor prognosis fu labs Subjective Subjective limited Objective Last 24 Hour Vital Signs Date Time Temp Pulse Resp B/P (MAP) Pulse Ox O2 Delivery O2 Flow Rate FiO2 11/09/17 10:55 96 18 40 11/09/17 09:32 88 137/78 11/09/17 09:22 101 19 40 11/09/17 08:00 97.7 88 18 137/78 97 40 97.7 11/09/17 08:00 90 11/09/17 08:00 40 11/09/17 06:58 91 18 40 11/09/17 05:19 108 20 40 11/09/17 04:30 98.9 93 19 148/91 97 Mechanical Ventilator 40 98.9 11/09/17 04:12 40 11/09/17 04:00 101 11/09/17 02:48 98 19 40 11/09/17 01:20 88 20 40 11/09/17 00:00 97.9 95 20 128/58 96 Mechanical Ventilator 40 97.9 11/09/17 00:00 40 11/09/17 00:00 93 11/08/17 22:59 89 18 40 11/08/17 20:50 95 162/94 11/08/17 20:46 95 18 40 11/08/17 20:00 40 11/08/17 20:00 98.2 89 18 161/59 95 Mechanical Ventilator 40 98.2 11/08/17 19:29 95 19 40 11/08/17 19:27 97 11/08/17 17:30 Mechanical Ventilator 40 11/08/17 17:30 98.4 89 20 162/94 Mechanical Ventilator 40 98.4 11/08/17 17:29 85 19 40 11/08/17 16:00 98.1 90 18 152/100 Endotracheal Tube 40 98.1 11/08/17 16:00 86 11/08/17 16:00 50 11/08/17 15:06 82 19 40 11/08/17 14:00 Mechanical Ventilator 40.0 11/08/17 14:00 98.5 82 20 154/94 Endotracheal Tube 40 98.5 Intake and Output 11/08/17 11/09/17 19:00 07:00 Intake Total 640 ml 495 ml Output Total 2000 ml 850 ml Balance -1360 ml -355 ml Free Water 100 ml Tube Feeding 540 ml 495 ml Output Urine Total 1950 ml 850 ml Stool Total 50 ml Hemodialysis UF 0 ml Laboratory Tests Test 11/09/17 05:00 White Blood Count 23.6 K/UL (4.8-10.8) *H Red Blood Count 2.44 M/UL (4.70-6.10) L Hemoglobin 7.5 G/DL (14.2-18.0) L Hematocrit 22.0 % (42.0-52.0) L Mean Corpuscular Volume 90 FL (80-99) Mean Corpuscular Hemoglobin 30.7 PG (27.0-31.0) Mean Corpuscular Hemoglobin Concent 34.1 G/DL (32.0-36.0) Red Cell Distribution Width 14.9 % (11.6-14.8) H Platelet Count 363 K/UL (150-450) Mean Platelet Volume 5.7 FL (6.5-10.1) L Neutrophils (%) (Auto) % (45.0-75.0) Lymphocytes (%) (Auto) % (20.0-45.0) Monocytes (%) (Auto) % (1.0-10.0) Eosinophils (%) (Auto) % (0.0-3.0) Basophils (%) (Auto) % (0.0-2.0) Differential Total Cells Counted 100 Neutrophils % (Manual) 79 % (45-75) H Lymphocytes % (Manual) 16 % (20-45) L Monocytes % (Manual) 4 % (1-10) Eosinophils % (Manual) 1 % (0-3) Basophils % (Manual) 0 % (0-2) Band Neutrophils 0 % (0-8) Platelet Estimate Adequate Platelet Morphology Normal Hypochromasia 1+ Anisocytosis 1+ Sodium Level 145 MMOL/L (136-145) Potassium Level 2.9 MMOL/L (3.5-5.1) L Chloride Level 107 MMOL/L (98-107) Carbon Dioxide Level 33 MMOL/L (21-32) H Anion Gap 5 mmol/L (5-15) Blood Urea Nitrogen 50 mg/dL (7-18) H Creatinine 4.6 MG/DL (0.55-1.30) H Estimat Glomerular Filtration Rate 15.9 mL/min (>60) Glucose Level 123 MG/DL (74-106) H Calcium Level 8.0 MG/DL (8.5-10.1) L Phosphorus Level 4.4 MG/DL (2.5-4.9) Magnesium Level 1.7 MG/DL (1.8-2.4) L Total Bilirubin 0.4 MG/DL (0.2-1.0) Aspartate Amino Transf (AST/SGOT) 29 U/L (15-37) Alanine Aminotransferase (ALT/SGPT) 30 U/L (12-78) Alkaline Phosphatase 127 U/L (46-116) H Total Protein 6.0 G/DL (6.4-8.2) L Albumin 1.4 G/DL (3.4-5.0) L Globulin 4.6 g/dL Albumin/Globulin Ratio 0.3 (1.0-2.7) L Hepatitis B Surface Antigen Pending Hepatitis B Surface Antibody, Quant Pending Hepatitis C Antibody Pending Height (Feet): 5 Height (Inches): 6.00 Weight (Pounds): 198 General Appearance: no apparent distress, alert Cardiovascular: normal rate Respiratory/Chest: normal breath sounds, no respiratory distress, other - mech vent Abdominal Exam: normal bowel sounds, non tender, soft, GT site - dressing changed today Extremities: non-tender Laura Lucas N.PHitesh Nov 09, 2017 13:08
--- NOTE | 2017-11-09 15:09 | Diagnostic Imaging Report ---
Indication: Abdominal pain Technique: Continuous helical transaxial imaging of the abdomen and pelvis was obtained from the lung bases to the pubic symphysis. No intravenous contrast was administered. Coronal 2-D reformats were also obtained. Automatic Exposure Control was utilized. Total Dose length Product (DLP): 1186.[address] Dose Index Volume (CTDIvol): 19.95 mGy Comparison: none Findings: Diffuse generalized anasarca demonstrated. There is a right pleural effusion mild to moderate in size. Atelectasis of the visualized part of the right lower lobe noted. There is volume loss within the right chest given elevation of the right hemidiaphragm and liver. The tip of the dialysis catheter is demonstrated in seen in the SVC in good position. There is a small left pleural effusion also present. Mild left posterior basilar atelectasis noted also. There is considerable artifact obscuring the lower chest and epigastric region of the abdomen. Gastrostomy tube is noted. There is no obvious hydronephrosis. There is no obvious bowel obstruction. The urinary bladder is distended. The Cervantes catheter balloon is inflated within the posterior urethra. The balloon appears to be just inferior to the prostate gland. There is a rectal tube present. Arterial calcifications are present. Gallbladder wall edema noted. There is generalized anasarca. Degenerative disc disease with vacuum phenomenon, narrowing, endplate and facet hypertrophy noted multiple levels lumbar spine. IMPRESSION: Mild to moderate right pleural effusion with right basal atelectasis and volume loss. Malpositioned Cervantes catheter with the balloon inflated within the urethra, just below the prostate gland. Distended urinary bladder. Small left pleural effusion Anasarca Gallbladder wall edema nonspecific in nature. Rectal tube in good position Atherosclerotic disease Extensive artifact obscuring the lower chest and upper abdomen Degenerative changes of the spine The CT scanner at [facility] is accredited by the [employer] and the scans are performed using dose optimization techniques as appropriate to a performed exam including Automatic Exposure control.
--- NOTE | 2017-11-09 15:52 | Nephrology Progress Note ---
Assessment/Plan Problem List: (1) Acute renal failure (ARF) (2) Respiratory failure (3) Shock liver Assessment JULIA , due to Shock , Hemorrhagic / Septic / C dif colitis worsenning anemia Off Pressors- Shock liver resolving High Troponin: CA Bradycardic - Vfib cardiac arrest 10/26 likely 2ry to hemorrhagic shock (drop Hgb 10.8 to 5) - GIB- Fever, ongoing Leukocytosis, worsening after code E.coli UTI w/ bacteremia Acute hypoxic resp failure- s/p Trach . Plan Plan: dialyse 11/08 next 11/10 has new cath right chest right groin cath removed being transfused add Renvela and Lactobacillus BP stablized start GT feeding HD trial as needed- on C dif treatment protocol monitor urine out put and Renal parameters discussed with RN Subjective ROS Limited/Unobtainable: Yes Objective Objective Last 24 Hour Vital Signs Date Time Temp Pulse Resp B/P (MAP) Pulse Ox O2 Delivery O2 Flow Rate FiO2 11/09/17 13:06 92 23 40 11/09/17 12:00 40 11/09/17 12:00 97.0 77 20 114/53 99 Mechanical Ventilator 40 97.0 11/09/17 12:00 90 11/09/17 10:55 96 18 40 11/09/17 09:32 88 137/78 11/09/17 09:22 101 19 40 11/09/17 08:00 97.7 88 18 137/78 97 40 97.7 11/09/17 08:00 90 11/09/17 08:00 40 11/09/17 06:58 91 18 40 11/09/17 05:19 108 20 40 11/09/17 04:30 98.9 93 19 148/91 97 Mechanical Ventilator 40 98.9 11/09/17 04:12 40 11/09/17 04:00 101 11/09/17 02:48 98 19 40 11/09/17 01:20 88 20 40 11/09/17 00:00 97.9 95 20 128/58 96 Mechanical Ventilator 40 97.9 11/09/17 00:00 40 11/09/17 00:00 93 11/08/17 22:59 89 18 40 11/08/17 20:50 95 162/94 11/08/17 20:46 95 18 40 11/08/17 20:00 40 11/08/17 20:00 98.2 89 18 161/59 95 Mechanical Ventilator 40 98.2 11/08/17 19:29 95 19 40 11/08/17 19:27 97 11/08/17 17:30 Mechanical Ventilator 40 11/08/17 17:30 98.4 89 20 162/94 Mechanical Ventilator 40 98.4 11/08/17 17:29 85 19 40 11/08/17 16:00 98.1 90 18 152/100 Endotracheal Tube 40 98.1 11/08/17 16:00 86 11/08/17 16:00 50 Intake and Output 11/08/17 11/09/17 19:00 07:00 Intake Total 640 ml 495 ml Output Total 2000 ml 850 ml Balance -1360 ml -355 ml Free Water 100 ml Tube Feeding 540 ml 495 ml Output Urine Total 1950 ml 850 ml Stool Total 50 ml Hemodialysis UF 0 ml Laboratory Tests 11/09/17 05:00: White Blood Count 23.6*H, Red Blood Count 2.44L, Hemoglobin 7.5L, Hematocrit 22.0L, Mean Corpuscular Volume 90, Mean Corpuscular Hemoglobin 30.7, Mean Corpuscular Hemoglobin Concent 34.1, Red Cell Distribution Width 14.9H, Platelet Count 363, Mean Platelet Volume 5.7L, Neutrophils (%) (Auto) , Lymphocytes (%) (Auto) , Monocytes (%) (Auto) , Eosinophils (%) (Auto) , Basophils (%) (Auto) , Differential Total Cells Counted 100, Neutrophils % ( Manual) 79H, Lymphocytes % (Manual) 16L, Monocytes % (Manual) 4, Eosinophils % ( Manual) 1, Basophils % (Manual) 0, Band Neutrophils 0, Platelet Estimate Adequate, Platelet Morphology Normal, Hypochromasia 1+, Anisocytosis 1+, Sodium Level 145, Potassium Level 2.9L, Chloride Level 107, Carbon Dioxide Level 33H, Anion Gap 5, Blood Urea Nitrogen 50H, Creatinine 4.6H, Estimat Glomerular Filtration Rate 15.9, Glucose Level 123H, Calcium Level 8.0L, Phosphorus Level 4.4, Magnesium Level 1.7L, Total Bilirubin 0.4, Aspartate Amino Transf (AST/SGOT ) 29, Alanine Aminotransferase (ALT/SGPT) 30, Alkaline Phosphatase 127H, Total Protein 6.0L, Albumin 1.4L, Globulin 4.6, Albumin/Globulin Ratio 0.3L, Hepatitis B Surface Antigen [Pending], Hepatitis B Surface Antibody, Quant [ Pending], Hepatitis C Antibody [Pending] Height (Feet): 5 Height (Inches): 6.00 Weight (Pounds): 198 General Appearance: no apparent distress Cardiovascular: tachycardia Respiratory/Chest: decreased breath sounds Abdomen: soft Objective no other change YVES SINHA Nov 09, 2017 15:52
[2017-11-09 16:00] VITALS: BP 153/103
--- NOTE | 2017-11-09 16:41 | Infectious Diseases Prog Note ---
Assessment/Plan Assessment/Plan A C Diff +ve, diarrhea mild improvement Fever, SP Leukocytosis, overall improving -CXR: 10/30 : Slightly increased hazy opacity left lung base and obscuration of left hemidiaphragm, may reflect increased infiltrates and/or pleural fluid E.coli UTI w/ bacteremia ; s/p Rx -REnal US: Limited exam. No definite hydronephrosis. Empty bladder, containing a Cervantes catheter. Suspicion for Flu despite rapid test (+URI symptoms, sick contacts); s/p Rx ? Pneum -CXR : Complete opacification of the right hemithorax with volume loss indicating possible post-obstructive atelectasis. CT: Gallbladder wall edema nonspecific in nature Acute hypoxic resp failure- intubated (10/20) , SP Trach 10/23 12/18 KUB : Distended small bowel. Ileus versus obstruction. SP cardiac arrest 10/26 SP hemorrhagic shock (drop Hgb 10.8 to 5)- 10/12 GIB- transaminitis due to shock improving JULIA on HD , HD cath Lactic acidosis, resolved UGI bleed / Anemia SP EGD 10/18 and 10/26 Path: H Pylori Neg CVA with hemiplegia HTN cataract dysphagia Hx of fall CAD/DE CVA/TIA dementia seizure disorder Plan: -Continue Flagyl and oral Vanco d# 14 / 10/30 SP Meropenem d# 5 - 10/29 SP IV Vanco # 10 - 10/26 SP Zosyn #6 - 10/21 SP Ceftriaxone 2 g qd d# 11 - 10/17 SP empiric Tamiflu #6/5 -/5 SP IV Vancomcyin #5, Meropenm #3 -3 SP Cefepime #3 -Monitor CBC/BMP, temperatures; -aspiration precautions - vent Support - US Abd : further eval of LING ARMENTA RN to reposition Cervantes Cath Subjective Allergies: Uncoded Allergies: TAPE (Adverse Reaction, Mild, 11/09/17) REDNESS AT TAPE SITE WHEN APPLIED TAPE Subjective afebrile Objective Vital Signs Last 24 Hour Vital Signs Date Time Temp Pulse Resp B/P (MAP) Pulse Ox O2 Delivery O2 Flow Rate FiO2 11/09/17 16:01 40 11/09/17 13:06 92 23 40 11/09/17 12:00 40 11/09/17 12:00 97.0 77 20 114/53 99 Mechanical Ventilator 40 97.0 11/09/17 12:00 90 11/09/17 10:55 96 18 40 11/09/17 09:32 88 137/78 11/09/17 09:22 101 19 40 11/09/17 08:00 97.7 88 18 137/78 97 40 97.7 11/09/17 08:00 90 11/09/17 08:00 40 11/09/17 06:58 91 18 40 11/09/17 05:19 108 20 40 11/09/17 04:30 98.9 93 19 148/91 97 Mechanical Ventilator 40 98.9 11/09/17 04:12 40 11/09/17 04:00 101 11/09/17 02:48 98 19 40 11/09/17 01:20 88 20 40 11/09/17 00:00 97.9 95 20 128/58 96 Mechanical Ventilator 40 97.9 11/09/17 00:00 40 11/09/17 00:00 93 11/08/17 22:59 89 18 40 11/08/17 20:50 95 162/94 11/08/17 20:46 95 18 40 11/08/17 20:00 40 11/08/17 20:00 98.2 89 18 161/59 95 Mechanical Ventilator 40 98.2 11/08/17 19:29 95 19 40 11/08/17 19:27 97 11/08/17 17:30 Mechanical Ventilator 40 11/08/17 17:30 98.4 89 20 162/94 Mechanical Ventilator 40 98.4 11/08/17 17:29 85 19 40 Height (Feet): 5 Height (Inches): 6.00 Weight (Pounds): 198 HEENT: anicteric Respiratory/Chest: normal breath sounds Cardiovascular: regular rhythm Abdomen: soft, non tender Laboratory Tests Test 11/09/17 05:00 White Blood Count 23.6 K/UL (4.8-10.8) *H Red Blood Count 2.44 M/UL (4.70-6.10) L Hemoglobin 7.5 G/DL (14.2-18.0) L Hematocrit 22.0 % (42.0-52.0) L Mean Corpuscular Volume 90 FL (80-99) Mean Corpuscular Hemoglobin 30.7 PG (27.0-31.0) Mean Corpuscular Hemoglobin Concent 34.1 G/DL (32.0-36.0) Red Cell Distribution Width 14.9 % (11.6-14.8) H Platelet Count 363 K/UL (150-450) Mean Platelet Volume 5.7 FL (6.5-10.1) L Neutrophils (%) (Auto) % (45.0-75.0) Lymphocytes (%) (Auto) % (20.0-45.0) Monocytes (%) (Auto) % (1.0-10.0) Eosinophils (%) (Auto) % (0.0-3.0) Basophils (%) (Auto) % (0.0-2.0) Differential Total Cells Counted 100 Neutrophils % (Manual) 79 % (45-75) H Lymphocytes % (Manual) 16 % (20-45) L Monocytes % (Manual) 4 % (1-10) Eosinophils % (Manual) 1 % (0-3) Basophils % (Manual) 0 % (0-2) Band Neutrophils 0 % (0-8) Platelet Estimate Adequate Platelet Morphology Normal Hypochromasia 1+ Anisocytosis 1+ Sodium Level 145 MMOL/L (136-145) Potassium Level 2.9 MMOL/L (3.5-5.1) L Chloride Level 107 MMOL/L (98-107) Carbon Dioxide Level 33 MMOL/L (21-32) H Anion Gap 5 mmol/L (5-15) Blood Urea Nitrogen 50 mg/dL (7-18) H Creatinine 4.6 MG/DL (0.55-1.30) H Estimat Glomerular Filtration Rate 15.9 mL/min (>60) Glucose Level 123 MG/DL (74-106) H Calcium Level 8.0 MG/DL (8.5-10.1) L Phosphorus Level 4.4 MG/DL (2.5-4.9) Magnesium Level 1.7 MG/DL (1.8-2.4) L Total Bilirubin 0.4 MG/DL (0.2-1.0) Aspartate Amino Transf (AST/SGOT) 29 U/L (15-37) Alanine Aminotransferase (ALT/SGPT) 30 U/L (12-78) Alkaline Phosphatase 127 U/L (46-116) H Total Protein 6.0 G/DL (6.4-8.2) L Albumin 1.4 G/DL (3.4-5.0) L Globulin 4.6 g/dL Albumin/Globulin Ratio 0.3 (1.0-2.7) L Hepatitis B Surface Antigen Pending Hepatitis B Surface Antibody, Quant Pending Hepatitis C Antibody Pending Current Medications Medications (Trade) Dose Ordered Sig/Olvin Route PRN Reason Start Time Stop Time Status Last Admin Dose Admin Acetaminophen (Tylenol) 650 mg Q4H PRN RECTAL Mild Pain (Pain Scale 1-3) 10/30/17 21:00 11/20/17 20:59 Albuterol/ Ipratropium (Albuterol/ Ipratropium) 3 ml Q4HRT PRN HHN sob 11/07/17 12:15 11/12/17 12:14 Chlorhexidine Gluconate (Pamela-Hex 2%) 1 applic DAILY@2000 TOPIC 10/31/17 22:00 11/23/17 21:59 11/08/17 20:50 Famotidine (Pepcid I.v.) 20 mg Q24HRS IVP 10/30/17 21:30 11/29/17 21:29 11/08/17 23:16 Lactobacillus Acidophilus (Culturelle) 1 tab THREE TIMES A DAY GT 11/03/17 13:00 12/03/17 12:59 11/09/17 13:32 Lorazepam (Ativan 2mg/ml 1ml) 2 mg Q4H PRN IV For Anxiety 11/05/17 20:45 11/12/17 20:44 11/06/17 02:20 Metoclopramide HCl (Reglan) 5 mg Q6H PRN GT Irrectractable Nausea/Vomiting 10/30/17 21:00 11/29/17 20:59 11/08/17 23:16 Metoprolol Tartrate (Lopressor) 25 mg Q12HR GT 10/30/17 21:30 11/29/17 21:29 11/09/17 09:32 Metronidazole 100 ml @ 100 mls/hr Q8HR IV 10/30/17 22:00 11/16/17 21:59 11/09/17 15:44 Nitroglycerin (Ntg) 0.4 mg Q5MIN X 3 DOSES PRN SL Prn Chest Pain 10/30/17 20:45 11/14/17 17:09 Ondansetron HCl (Zofran) 4 mg Q6H PRN IVP Nausea & Vomiting 10/30/17 21:00 11/29/17 20:59 Sevelamer Carbonate (Renvela) 1,600 mg THREE TIMES A DAY NG 11/04/17 13:00 12/04/17 12:59 11/09/17 13:31 Vancomycin HCl (Vancomycin) 125 mg FOUR TIMES A DAY ORAL 10/30/17 21:30 11/16/17 21:29 11/09/17 13:32 FAUSTINO AGARWAL M.D. Nov 09, 2017 16:41
[2017-11-09 20:00] VITALS: BP 155/90
[2017-11-09] MEDS: Dyna-Hex 2% Top Sol 2oz TOPIC SCH (20:56)
[2017-11-10] VITALS (7 sets, daily range): BP systolic 130–163; BP diastolic 87–121
[2017-11-10] MEDS: LORazepam Inj 2mg/ml 1ml IV PRN (00:18)
[2017-11-10 04:27] LABS: HEMATOCRIT 22.9 % (42.0-52.0); HEMOGLOBIN 7.8 G/DL (14.2-18.0); MEAN CORPUSCULAR VOLUME 90 FL (80-99); PLATELET COUNT 440 K/UL (150-450); RED BLOOD COUNT 2.53 M/UL (4.70-6.10); RED CELL DISTRIBUTION WIDTH 14.9 % (11.6-14.8)
[2017-11-10 05:13] LABS: PHOSPHORUS 4.4 MG/DL (2.5-4.9)
[2017-11-10 05:18] LABS: ALANINE AMINOTRANSFERASE 29 U/L (12-78); ALBUMIN 1.6 G/DL (3.4-5.0); ALBUMIN/GLOBULIN RATIO 0.3 (1.0-2.7); ALKALINE PHOSPHATASE 131 U/L (46-116); ANION GAP 4 mmol/L (5-15); ASPARTATE AMINO TRANSFERASE 30 U/L (15-37); BILIRUBIN,TOTAL 0.5 MG/DL (0.2-1.0); BLOOD UREA NITROGEN 46 mg/dL (7-18); CALCIUM 8.2 MG/DL (8.5-10.1); CARBON DIOXIDE 32 MMOL/L (21-32); CHLORIDE 107 MMOL/L (98-107); CREATININE 4.2 MG/DL (0.55-1.30); POTASSIUM 3.1 MMOL/L (3.5-5.1); SODIUM 143 MMOL/L (136-145)
--- NOTE | 2017-11-10 08:23 | Pulmonology Progress Note ---
Assessment/Plan Assessment/Plan ASSESSMENT s/p cardiac arrest ( due to acute GI hemorrhage on 10/26) x 3 acute GI hemorrhage-persistent hypovolemic shock ( due to GI hemorrhage)-resolved elevated troponin, likely due to multiple cardiac arrest and shocks possible acute SC severely elevated LFT , likely shock liver multiorgan system failure acute anemia of blood loss, requiring 3 u PRBC s/p trach 10/23 trach malfunctioning, s/p trach exchange 10/26 persistent hypoxemia collapse R lung - improved acute renal failure acute hypoxemic RF requiring BiPAP, unable to wean ( s/p trach) severe sepsis with E coli bacteremia ( s/p Rx) E coli UTI ( s/p Rx) C dif colitis probably PNA acute bronchitis possible influenza ( s/p Rx) hematuria lactic acidosis 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 seizure disorder HTN CAD with hx of SC dysphagia, s/p PEG dementia R lateral malleolus DTI PLAN OF CARE SANTOS s/p Levophed Hemodynamically stable ABG with hypoxemia on 100% FiO2 per pulmo increase PEEP to 7 Vent/trach care pulm toilet fup with ABG CXR with improved aeration R lung, but bilateral basilar infiltrates vs atelectasis prior CXR 11/09 with complete R lung opacification, R side was elevated and CPT with HHN provided per cardio troponin likely due to cardiac arrest x 3, troponin trending down ECHO done- pEF 60-65%, no change from initial cardio added CB for BP management initial ECHO with pEF 60-65% CTA no PE hold ASA for now due to GI bleeding continue BB and statin troponin negative s/p trach exchange due to leak by surgeon, currently trach functional s/p Protonix gtt s/p emergent EGD , ulcer noted, vessel clipped recurrent bleeding sp additional transfusion 11/06 monitor counts, monitor for active bleeding strict asp precautions, s/p PEG, a/emetic prn bowel regimen rectal tube for stool containing 2 to C dif diarrhea nephro follows on HD ( new start this admission) monitor renal parameters, correct lytes as needed, avoid nephrotoxic renal US done earlier with normal bilateral kidney echogenicity and no hydro however due to ARF and worsening renal parameters , started on HD severely elevated LFT likely due to shock liver, trending down overall multiple organ/system failure-improving ID follows blood cx + E coli, urine cx + E coli, s/p rx Influenza negative ( but rapid test with only sensitivity 60-65%, by history high suspicion for flu), s/p Tamiflu last blood and urine cx negative leukocytosis persistent probably at least partially due to C dif stool C dif+ on po Vanco and Flagyl, urologist seen and evaluated for hematuria Cervantes seizure precautions, on Depakote , monitor levels case discussed and evaluated by supervising physician Subjective Allergies: Uncoded Allergies: TAPE (Adverse Reaction, Mild, 11/09/17) REDNESS AT TAPE SITE WHEN APPLIED TAPE Subjective still with persistent leukocytosis , afebrile anemic ABG on 100% FiO2 still low O 2 sat Objective Last 24 Hour Vital Signs Date Time Temp Pulse Resp B/P (MAP) Pulse Ox O2 Delivery O2 Flow Rate FiO2 11/10/17 08:00 40 11/10/17 08:00 98.4 104 20 156/104 94 Mechanical Ventilator 40 98.4 11/10/17 07:42 101 18 40 11/10/17 05:30 82 18 40 11/10/17 04:00 40 11/10/17 04:00 112 11/10/17 04:00 98.0 100 18 163/121 98 Mechanical Ventilator 40 98.0 11/10/17 03:45 88 18 40 11/10/17 00:37 91 18 40 11/10/17 00:00 104 11/10/17 00:00 98.2 84 25 130/87 98 Mechanical Ventilator 40 98.2 11/10/17 00:00 40 11/09/17 22:52 85 20 40 11/09/17 21:39 89 155/90 11/09/17 21:33 89 19 40 11/09/17 20:00 98.1 101 30 155/90 98 Mechanical Ventilator 40 98.1 11/09/17 20:00 40 11/09/17 20:00 98 11/09/17 19:54 94 18 40 11/09/17 16:42 96 19 40 11/09/17 16:01 40 11/09/17 16:00 97.7 92 28 153/103 95 Mechanical Ventilator 40 97.7 11/09/17 16:00 92 11/09/17 15:24 91 18 40 11/09/17 13:06 92 23 40 11/09/17 12:00 40 11/09/17 12:00 97.0 77 20 114/53 99 Mechanical Ventilator 40 97.0 3/2/18 12:00 90 11/09/17 10:55 96 18 40 11/09/17 09:32 88 137/78 11/09/17 09:22 101 19 40 Intake and Output 11/09/17 11/10/17 19:00 07:00 Intake Total 474 ml 675 ml Output Total 2100 ml 1200 ml Balance -1626 ml -525 ml IV Total 100 ml 200 ml Tube Feeding 45 ml 415 ml Other 329 ml 60 ml Output Urine Total 2100 ml 1000 ml Stool Total 200 ml Objective General: awake, poorly responsive , HEENT: atraumatic, normocephalic on vent AC 550-18-100% PEEP-5 Neck: trach with Portex #8, secretions thick, yellow, small Lungs: few crackles at bases Heart: HR/BP stable, regular, ST tele , RIJ CL intact, R subclavian CL intact Abdomen: soft, non-tender, active bowel sounds, Gt-feeding tube, Extremities: trace edema BLE Laboratory Tests 11/10/17 04:00: White Blood Count 25.0*H, Red Blood Count 2.53L, Hemoglobin 7.8L, Hematocrit 22.9L, Mean Corpuscular Volume 90, Mean Corpuscular Hemoglobin 30.6, Mean Corpuscular Hemoglobin Concent 34.0, Red Cell Distribution Width 14.9H, Platelet Count 440, Mean Platelet Volume 5.6L, Neutrophils (%) (Auto) , Lymphocytes (%) (Auto) , Monocytes (%) (Auto) , Eosinophils (%) (Auto) , Basophils (%) (Auto) , Neutrophils % (Manual) [Pending], Lymphocytes % (Manual) [Pending], Platelet Estimate [Pending], Platelet Morphology [Pending], Sodium Level 143, Potassium Level 3.1L, Chloride Level 107, Carbon Dioxide Level 32, Anion Gap 4L, Blood Urea Nitrogen 46H, Creatinine 4.2H, Estimat Glomerular Filtration Rate 17.6, Glucose Level 112H, Calcium Level 8.2L, Phosphorus Level 4.4, Magnesium Level 1.7L, Total Bilirubin 0.5, Aspartate Amino Transf (AST/SGOT ) 30, Alanine Aminotransferase (ALT/SGPT) 29, Alkaline Phosphatase 131H, C- Reactive Protein, Quantitative 6.9H, Pro-B-Type Natriuretic Peptide 1598H, Total Protein 6.4, Albumin 1.6L, Globulin 4.8, Albumin/Globulin Ratio 0.3L Current Medications Medications (Trade) Dose Ordered Sig/Olvin Route PRN Reason Start Time Stop Time Status Last Admin Dose Admin Acetaminophen (Tylenol) 650 mg Q4H PRN RECTAL Mild Pain (Pain Scale 1-3) 10/30/17 21:00 11/20/17 20:59 Albuterol/ Ipratropium (Albuterol/ Ipratropium) 3 ml Q4HRT PRN HHN sob 11/07/17 12:15 11/12/17 12:14 Chlorhexidine Gluconate (Pamela-Hex 2%) 1 applic DAILY@2000 TOPIC 10/31/17 22:00 11/23/17 21:59 11/09/17 20:56 Famotidine (Pepcid I.v.) 20 mg Q24HRS IVP 10/30/17 21:30 11/29/17 21:29 11/09/17 21:39 Lactobacillus Acidophilus (Culturelle) 1 tab THREE TIMES A DAY GT 11/03/17 13:00 12/03/17 12:59 11/09/17 18:06 Lorazepam (Ativan 2mg/ml 1ml) 2 mg Q4H PRN IV For Anxiety 11/05/17 20:45 11/12/17 20:44 11/10/17 00:18 Metoclopramide HCl (Reglan) 5 mg Q6H PRN GT Irrectractable Nausea/Vomiting 10/30/17 21:00 11/29/17 20:59 11/08/17 23:16 Metoprolol Tartrate (Lopressor) 25 mg Q12HR GT 10/30/17 21:30 11/29/17 21:29 11/09/17 21:39 Metronidazole 100 ml @ 100 mls/hr Q8HR IV 10/30/17 22:00 11/16/17 21:59 11/10/17 05:37 Nitroglycerin (Ntg) 0.4 mg Q5MIN X 3 DOSES PRN SL Prn Chest Pain 10/30/17 20:45 11/14/17 17:09 Ondansetron HCl (Zofran) 4 mg Q6H PRN IVP Nausea & Vomiting 10/30/17 21:00 11/29/17 20:59 Potassium Chloride 40 meq/ Sodium Chloride 570 ml @ 142.5 mls/ hr ONCE ONCE IVPB 11/10/17 09:00 11/10/17 12:59 Sevelamer Carbonate (Renvela) 1,600 mg THREE TIMES A DAY NG 11/04/17 13:00 12/04/17 12:59 11/09/17 18:06 Vancomycin HCl (Vancomycin) 125 mg FOUR TIMES A DAY ORAL 10/30/17 21:30 11/16/17 21:29 11/09/17 21:40 Anson (Alfonzo)Pippa NP Nov 10, 2017 08:23
[2017-11-10] MEDS: Renvela 800mg Pkt NG SCH ×3 (08:35→17:49)
[2017-11-10] MEDS: Vancomycin oral 125mg/2.5ml ORAL SCH ×4 (08:36→22:16)
[2017-11-10] MEDS: Metoprolol 25mg tab GT SCH ×2 (08:36→22:16)
[2017-11-10] MEDS: Lactobacillus-GG tablet GT SCH ×3 (08:36→17:49)
[2017-11-10] MEDS ORDERED: Potassium Chloride 40 MEQ in Sodium Chloride 500ML 550 ML IVPB ONE (09:00)
--- NOTE | 2017-11-10 11:08 | Diagnostic Imaging Report ---
Indication: Dyspnea Comparison: 11/09/2017 A single view chest radiograph was obtained. Findings: The right lung has reexpanded considerably. The right hemidiaphragm is now visualized. Volume loss has resolved and trachea is now midline. There are bilateral lower lobe densities within the lung which may represent pneumonia or atelectasis. Tubes and lines are unchanged. Heart size is normal. IMPRESSION: Improved aeration of the right lung with considerable reexpansion presumably due to resolved mucous plugging. Basilar lower lobe infiltrates versus atelectasis demonstrated currently. Follow-up recommended.
--- NOTE | 2017-11-10 11:43 | Nephrology Progress Note ---
Assessment/Plan Problem List: (1) Acute renal failure (ARF) (2) Respiratory failure (3) Shock liver Assessment JULIA , due to Shock , Hemorrhagic / Septic / C dif colitis worsenning anemia Off Pressors- Shock liver resolving High Troponin: SC Bradycardic - Vfib cardiac arrest 10/26 likely 2ry to hemorrhagic shock (drop Hgb 10.8 to 5) - GIB- Fever, ongoing Leukocytosis, worsening after code E.coli UTI w/ bacteremia Acute hypoxic resp failure- s/p Trach . Plan Plan: dialyse 11/08 next 11/10 has new cath right chest right groin cath removed being transfused add Renvela and Lactobacillus BP stablized start GT feeding HD trial as needed- on C dif treatment protocol monitor urine out put and Renal parameters discussed with RN Subjective ROS Limited/Unobtainable: Yes Objective Objective Last 24 Hour Vital Signs Date Time Temp Pulse Resp B/P (MAP) Pulse Ox O2 Delivery O2 Flow Rate FiO2 11/10/17 10:30 87 23 100 11/10/17 09:10 108 28 100 11/10/17 08:36 104 156/104 11/10/17 08:00 40 11/10/17 08:00 91 11/10/17 08:00 98.4 104 20 156/104 94 Mechanical Ventilator 40 98.4 11/10/17 07:42 101 18 40 11/10/17 05:30 82 18 40 11/10/17 04:00 40 11/10/17 04:00 112 11/10/17 04:00 98.0 100 18 163/121 98 Mechanical Ventilator 40 98.0 11/10/17 03:45 88 18 40 11/10/17 00:37 91 18 40 11/10/17 00:00 104 11/10/17 00:00 98.2 84 25 130/87 98 Mechanical Ventilator 40 98.2 11/10/17 00:00 40 11/09/17 22:52 85 20 40 11/09/17 21:39 89 155/90 11/09/17 21:33 89 19 40 11/09/17 20:00 98.1 101 30 155/90 98 Mechanical Ventilator 40 98.1 11/09/17 20:00 40 11/09/17 20:00 98 11/09/17 19:54 94 18 40 11/09/17 16:42 96 19 40 11/09/17 16:01 40 11/09/17 16:00 97.7 92 28 153/103 95 Mechanical Ventilator 40 97.7 11/09/17 16:00 92 11/09/17 15:24 91 18 40 11/09/17 13:06 92 23 40 11/09/17 12:00 40 11/09/17 12:00 97.0 77 20 114/53 99 Mechanical Ventilator 40 97.0 11/09/17 12:00 90 Intake and Output 11/09/17 11/10/17 19:00 07:00 Intake Total 474 ml 675 ml Output Total 2100 ml 1200 ml Balance -1626 ml -525 ml IV Total 100 ml 200 ml Tube Feeding 45 ml 415 ml Other 329 ml 60 ml Output Urine Total 2100 ml 1000 ml Stool Total 200 ml Laboratory Tests 11/10/17 04:00: White Blood Count 25.0*H, Red Blood Count 2.53L, Hemoglobin 7.8L, Hematocrit 22.9L, Mean Corpuscular Volume 90, Mean Corpuscular Hemoglobin 30.6, Mean Corpuscular Hemoglobin Concent 34.0, Red Cell Distribution Width 14.9H, Platelet Count 440, Mean Platelet Volume 5.6L, Neutrophils (%) (Auto) , Lymphocytes (%) (Auto) , Monocytes (%) (Auto) , Eosinophils (%) (Auto) , Basophils (%) (Auto) , Differential Total Cells Counted 100, Neutrophils % ( Manual) 89H, Lymphocytes % (Manual) 4L, Monocytes % (Manual) 6, Eosinophils % ( Manual) 1, Basophils % (Manual) 0, Band Neutrophils 0, Platelet Estimate Adequate, Platelet Morphology Normal, Hypochromasia 3+, Anisocytosis 1+, Spherocytes 2+, Sodium Level 143, Potassium Level 3.1L, Chloride Level 107, Carbon Dioxide Level 32, Anion Gap 4L, Blood Urea Nitrogen 46H, Creatinine 4.2H , Estimat Glomerular Filtration Rate 17.6, Glucose Level 112H, Calcium Level 8.2L, Phosphorus Level 4.4, Magnesium Level 1.7L, Total Bilirubin 0.5, Aspartate Amino Transf (AST/SGOT) 30, Alanine Aminotransferase (ALT/SGPT) 29, Alkaline Phosphatase 131H, C-Reactive Protein, Quantitative 6.9H, Pro-B-Type Natriuretic Peptide 1598H, Total Protein 6.4, Albumin 1.6L, Globulin 4.8, Albumin/Globulin Ratio 0.3L 11/10/17 10:30: Arterial Blood pH 7.410, Arterial Blood Partial Pressure CO2 50.6H, Arterial Blood Partial Pressure O2 42.5*L, Arterial Blood HCO3 31.9H, Arterial Blood Oxygen Saturation 76.8L, Arterial Blood Base Excess 6.5, Dipak Test Positive Height (Feet): 5 Height (Inches): 6.00 Weight (Pounds): 206 General Appearance: no apparent distress Cardiovascular: tachycardia Respiratory/Chest: decreased breath sounds Abdomen: soft Objective no other change YVES SINHA Nov 10, 2017 11:43
--- NOTE | 2017-11-10 12:47 | Cardiology Progress Note ---
Assessment/Plan Assessment/Plan 1. Cardiopulmonary arrest on three separate occasions. 2. Massive gastrointestinal bleed. 3. Encephalopathy. 4. Abnormal liver function tests, likely shock liver. 5. Acute renal failure. 6. Anemia. 7. NSTEMI type2 related to cardiopulmonary resuscitation and renal insufficiency. 8. Chronic respiratory failure. 9. History of cerebrovascular accident. 10. c diff 11. htn onthe vent dialysis per dr wang tele sinus still bp is elelvated ivc was 1.5 cm jsut done as i was examining the pt by the tech start on norvasc for bp skip dose before dialysis may need mroe UF Subjective ROS Limited/Unobtainable: Yes Subjective on the vent Objective Last 24 Hour Vital Signs Date Time Temp Pulse Resp B/P (MAP) Pulse Ox O2 Delivery O2 Flow Rate FiO2 11/10/17 12:00 40 11/10/17 12:00 98.1 93 22 151/101 100 Mechanical Ventilator 40 98.1 11/10/17 10:30 87 23 100 11/10/17 09:10 108 28 100 11/10/17 08:36 104 156/104 11/10/17 08:00 40 11/10/17 08:00 91 11/10/17 08:00 98.4 104 20 156/104 94 Mechanical Ventilator 40 98.4 11/10/17 07:42 101 18 40 11/10/17 05:30 82 18 40 11/10/17 04:00 40 11/10/17 04:00 112 11/10/17 04:00 98.0 100 18 163/121 98 Mechanical Ventilator 40 98.0 11/10/17 03:45 88 18 40 11/10/17 00:37 91 18 40 11/10/17 00:00 104 11/10/17 00:00 98.2 84 25 130/87 98 Mechanical Ventilator 40 98.2 11/10/17 00:00 40 11/09/17 22:52 85 20 40 11/09/17 21:39 89 155/90 11/09/17 21:33 89 19 40 11/09/17 20:00 98.1 101 30 155/90 98 Mechanical Ventilator 40 98.1 11/09/17 20:00 40 11/09/17 20:00 98 11/09/17 19:54 94 18 40 11/09/17 16:42 96 19 40 11/09/17 16:01 40 11/09/17 16:00 97.7 92 28 153/103 95 Mechanical Ventilator 40 97.7 11/09/17 16:00 92 11/09/17 15:24 91 18 40 11/09/17 13:06 92 23 40 General Appearance: no apparent distress, alert, on vent, patient on isolation Neck: supple Cardiovascular: regular rhythm Respiratory/Chest: lungs clear - ant Abdomen: normal bowel sounds, non tender, soft Extremities: trace edema Intake and Output 11/09/17 11/10/17 19:00 07:00 Intake Total 474 ml 675 ml Output Total 2100 ml 1200 ml Balance -1626 ml -525 ml IV Total 100 ml 200 ml Tube Feeding 45 ml 415 ml Other 329 ml 60 ml Output Urine Total 2100 ml 1000 ml Stool Total 200 ml Laboratory Tests Test 11/10/17 04:00 11/10/17 10:30 White Blood Count 25.0 K/UL (4.8-10.8) *H Red Blood Count 2.53 M/UL (4.70-6.10) L Hemoglobin 7.8 G/DL (14.2-18.0) L Hematocrit 22.9 % (42.0-52.0) L Mean Corpuscular Volume 90 FL (80-99) Mean Corpuscular Hemoglobin 30.6 PG (27.0-31.0) Mean Corpuscular Hemoglobin Concent 34.0 G/DL (32.0-36.0) Red Cell Distribution Width 14.9 % (11.6-14.8) H Platelet Count 440 K/UL (150-450) Mean Platelet Volume 5.6 FL (6.5-10.1) L Neutrophils (%) (Auto) % (45.0-75.0) Lymphocytes (%) (Auto) % (20.0-45.0) Monocytes (%) (Auto) % (1.0-10.0) Eosinophils (%) (Auto) % (0.0-3.0) Basophils (%) (Auto) % (0.0-2.0) Differential Total Cells Counted 100 Neutrophils % (Manual) 89 % (45-75) H Lymphocytes % (Manual) 4 % (20-45) L Monocytes % (Manual) 6 % (1-10) Eosinophils % (Manual) 1 % (0-3) Basophils % (Manual) 0 % (0-2) Band Neutrophils 0 % (0-8) Platelet Estimate Adequate Platelet Morphology Normal Hypochromasia 3+ Anisocytosis 1+ Spherocytes 2+ Sodium Level 143 MMOL/L (136-145) Potassium Level 3.1 MMOL/L (3.5-5.1) L Chloride Level 107 MMOL/L (98-107) Carbon Dioxide Level 32 MMOL/L (21-32) Anion Gap 4 mmol/L (5-15) L Blood Urea Nitrogen 46 mg/dL (7-18) H Creatinine 4.2 MG/DL (0.55-1.30) H Estimat Glomerular Filtration Rate 17.6 mL/min (>60) Glucose Level 112 MG/DL (74-106) H Calcium Level 8.2 MG/DL (8.5-10.1) L Phosphorus Level 4.4 MG/DL (2.5-4.9) Magnesium Level 1.7 MG/DL (1.8-2.4) L Total Bilirubin 0.5 MG/DL (0.2-1.0) Aspartate Amino Transf (AST/SGOT) 30 U/L (15-37) Alanine Aminotransferase (ALT/SGPT) 29 U/L (12-78) Alkaline Phosphatase 131 U/L (46-116) H C-Reactive Protein, Quantitative 6.9 mg/dL (0.00-0.90) H Pro-B-Type Natriuretic Peptide 1598 pg/mL (0-125) H Total Protein 6.4 G/DL (6.4-8.2) Albumin 1.6 G/DL (3.4-5.0) L Globulin 4.8 g/dL Albumin/Globulin Ratio 0.3 (1.0-2.7) L Arterial Blood pH 7.410 (7.350-7.450) Arterial Blood Partial Pressure CO2 50.6 mmHg (35.0-45.0) H Arterial Blood Partial Pressure O2 42.5 mmHg (75.0-100.0) Arterial Blood HCO3 31.9 mmol/L (22.0-26.0) H Arterial Blood Oxygen Saturation 76.8 % (92.0-98.0) L Arterial Blood Base Excess 6.5 Dipak Test Positive CHRISTEN LOVE Nov 10, 2017 12:47
--- NOTE | 2017-11-10 14:39 | General Progress Note ---
Assessment/Plan Problem List: (1) Shock liver ICD Codes: K72.00 - Acute and subacute hepatic failure without coma SNOMED: 591480682 (2) Upper GI bleed ICD Codes: K92.2 - Gastrointestinal hemorrhage, unspecified SNOMED: 08095776 (3) Respiratory failure ICD Codes: J96.90 - Respiratory failure, unspecified, unspecified whether with hypoxia or hypercapnia SNOMED: 208392483 (4) Acute [place] ICD Codes: I21.9 - Acute myocardial infarction, unspecified SNOMED: 14425188 (5) Sepsis ICD Codes: A41.9 - Sepsis, unspecified organism SNOMED: 11403260 (6) Feeding by G-tube ICD Codes: Z93.1 - Gastrostomy status SNOMED: 593726515, 092879299 (7) Dysphagia ICD Codes: R13.10 - Dysphagia, unspecified SNOMED: 86655844, 930869440 (8) CVA, old, hemiparesis ICD Codes: I69.359 - Hemiplegia and hemiparesis following cerebral infarction affecting unspecified side SNOMED: 77084876, 69287546, 7505784824313 Assessment/Plan s/p EGD and hemostasis cdiff positive >> dc ppi, H2B BID gastric lavage performed by RN with no evidence of gastric bleed monitor H&H, prn transfusion cont GTFs per RD GT site care BID/prn abx poor prognosis fu labs fu abd us Subjective ROS Limited/Unobtainable: No Allergies: Uncoded Allergies: TAPE (Adverse Reaction, Mild, 11/09/17) REDNESS AT TAPE SITE WHEN APPLIED TAPE Subjective was npo for abd us Objective Last 24 Hour Vital Signs Date Time Temp Pulse Resp B/P (MAP) Pulse Ox O2 Delivery O2 Flow Rate FiO2 11/10/17 13:02 95 33 100 11/10/17 12:00 40 11/10/17 12:00 98.1 93 22 151/101 100 Mechanical Ventilator 40 98.1 11/10/17 12:00 95 11/10/17 10:30 87 23 100 11/10/17 09:10 108 28 100 11/10/17 08:36 104 156/104 11/10/17 08:00 40 11/10/17 08:00 91 11/10/17 08:00 98.4 104 20 156/104 94 Mechanical Ventilator 40 98.4 11/10/17 07:42 101 18 40 11/10/17 05:30 82 18 40 11/10/17 04:00 40 11/10/17 04:00 112 11/10/17 04:00 98.0 100 18 163/121 98 Mechanical Ventilator 40 98.0 11/10/17 03:45 88 18 40 11/10/17 00:37 91 18 40 11/10/17 00:00 104 11/10/17 00:00 98.2 84 25 130/87 98 Mechanical Ventilator 40 98.2 11/10/17 00:00 40 11/09/17 22:52 85 20 40 11/09/17 21:39 89 155/90 11/09/17 21:33 89 19 40 11/09/17 20:00 98.1 101 30 155/90 98 Mechanical Ventilator 40 98.1 11/09/17 20:00 40 11/09/17 20:00 98 11/09/17 19:54 94 18 40 11/09/17 16:42 96 19 40 11/09/17 16:01 40 11/09/17 16:00 97.7 92 28 153/103 95 Mechanical Ventilator 40 97.7 11/09/17 16:00 92 11/09/17 15:24 91 18 40 Intake and Output 11/09/17 11/10/17 19:00 07:00 Intake Total 474 ml 675 ml Output Total 2100 ml 1200 ml Balance -1626 ml -525 ml IV Total 100 ml 200 ml Tube Feeding 45 ml 415 ml Other 329 ml 60 ml Output Urine Total 2100 ml 1000 ml Stool Total 200 ml Laboratory Tests 11/10/17 04:00: White Blood Count 25.0*H, Red Blood Count 2.53L, Hemoglobin 7.8L, Hematocrit 22.9L, Mean Corpuscular Volume 90, Mean Corpuscular Hemoglobin 30.6, Mean Corpuscular Hemoglobin Concent 34.0, Red Cell Distribution Width 14.9H, Platelet Count 440, Mean Platelet Volume 5.6L, Neutrophils (%) (Auto) , Lymphocytes (%) (Auto) , Monocytes (%) (Auto) , Eosinophils (%) (Auto) , Basophils (%) (Auto) , Differential Total Cells Counted 100, Neutrophils % ( Manual) 89H, Lymphocytes % (Manual) 4L, Monocytes % (Manual) 6, Eosinophils % ( Manual) 1, Basophils % (Manual) 0, Band Neutrophils 0, Platelet Estimate Adequate, Platelet Morphology Normal, Hypochromasia 3+, Anisocytosis 1+, Spherocytes 2+, Sodium Level 143, Potassium Level 3.1L, Chloride Level 107, Carbon Dioxide Level 32, Anion Gap 4L, Blood Urea Nitrogen 46H, Creatinine 4.2H , Estimat Glomerular Filtration Rate 17.6, Glucose Level 112H, Calcium Level 8.2L, Phosphorus Level 4.4, Magnesium Level 1.7L, Total Bilirubin 0.5, Aspartate Amino Transf (AST/SGOT) 30, Alanine Aminotransferase (ALT/SGPT) 29, Alkaline Phosphatase 131H, C-Reactive Protein, Quantitative 6.9H, Pro-B-Type Natriuretic Peptide 1598H, Total Protein 6.4, Albumin 1.6L, Globulin 4.8, Albumin/Globulin Ratio 0.3L 11/10/17 10:30: Arterial Blood pH 7.480H, Arterial Blood Partial Pressure CO2 41.3, Arterial Blood Partial Pressure O2 61.7L, Arterial Blood HCO3 30.1H, Arterial Blood Oxygen Saturation 91.9L, Arterial Blood Base Excess 6.0, Dipak Test Positive Height (Feet): 5 Height (Inches): 6.00 Weight (Pounds): 206 General Appearance: no apparent distress EENT: normal ENT inspection Neck: supple Cardiovascular: normal rate Respiratory/Chest: decreased breath sounds Abdomen: normal bowel sounds, non tender, soft Extremities: non-tender ANGELA WAGONER Nov 10, 2017 14:38
[2017-11-10] MEDS ORDERED: LORazepam Inj 2mg/ml 1ml IV PRN (16:45)
[2017-11-10] MEDS: Levalbuterol Inh UD 1.25mg/0.5ml HHN SCH (17:53)
[2017-11-10] MEDS: Dyna-Hex 2% Top Sol 2oz TOPIC SCH (22:15)
[2017-11-11] VITALS: BP 147/98
[2017-11-11 04:00] VITALS: BP 134/89
[2017-11-11] MEDS: Levalbuterol Inh UD 1.25mg/0.5ml HHN SCH ×3 (07:18→19:47)
[2017-11-11 07:52] LABS: HEMATOCRIT 24.1 % (42.0-52.0); MEAN CORPUSCULAR VOLUME 88 FL (80-99); PLATELET COUNT 344 K/UL (150-450); RED BLOOD COUNT 2.74 M/UL (4.70-6.10); RED CELL DISTRIBUTION WIDTH 16.7 % (11.6-14.8); WHITE BLOOD COUNT 28.6 K/UL (4.8-10.8)
[2017-11-11 08:00] VITALS: BP 134/90
[2017-11-11 08:31] LABS: ALANINE AMINOTRANSFERASE 26 U/L (12-78); ALBUMIN 1.5 G/DL (3.4-5.0); ALBUMIN/GLOBULIN RATIO 0.3 (1.0-2.7); ALKALINE PHOSPHATASE 132 U/L (46-116); ANION GAP 2 mmol/L (5-15); ASPARTATE AMINO TRANSFERASE 25 U/L (15-37); BILIRUBIN,TOTAL 0.6 MG/DL (0.2-1.0); BLOOD UREA NITROGEN 36 mg/dL (7-18); CALCIUM 8.2 MG/DL (8.5-10.1); CARBON DIOXIDE 34 MMOL/L (21-32); CHLORIDE 106 MMOL/L (98-107); CREATININE 3.2 MG/DL (0.55-1.30); PHOSPHORUS 3.9 MG/DL (2.5-4.9); POTASSIUM 3.2 MMOL/L (3.5-5.1); SODIUM 142 MMOL/L (136-145)
[2017-11-11] MEDS: Metoprolol 25mg tab GT SCH ×2 (09:09→20:37)
[2017-11-11] MEDS: Vancomycin oral 125mg/2.5ml ORAL SCH ×3 (09:09→17:40)
[2017-11-11] MEDS: Renvela 800mg Pkt NG SCH ×3 (09:09→17:40)
[2017-11-11] MEDS: Lactobacillus-GG tablet GT SCH ×3 (09:10→17:40)
--- NOTE | 2017-11-11 10:06 | General Progress Note ---
Assessment/Plan Problem List: (1) Shock liver ICD Codes: K72.00 - Acute and subacute hepatic failure without coma SNOMED: 283251086 (2) Upper GI bleed ICD Codes: K92.2 - Gastrointestinal hemorrhage, unspecified SNOMED: 19076584 (3) Respiratory failure ICD Codes: J96.90 - Respiratory failure, unspecified, unspecified whether with hypoxia or hypercapnia SNOMED: 483464642 (4) Acute [place] ICD Codes: I21.9 - Acute myocardial infarction, unspecified SNOMED: 76694699 (5) Sepsis ICD Codes: A41.9 - Sepsis, unspecified organism SNOMED: 69194600 (6) Feeding by G-tube ICD Codes: Z93.1 - Gastrostomy status SNOMED: 582244177, 610858933 (7) Dysphagia ICD Codes: R13.10 - Dysphagia, unspecified SNOMED: 56200467, 564495659 (8) CVA, old, hemiparesis ICD Codes: I69.359 - Hemiplegia and hemiparesis following cerebral infarction affecting unspecified side SNOMED: 63920010, 22197007, 6438081578008 Assessment/Plan s/p EGD and hemostasis cdiff positive >> dc ppi, H2B BID gastric lavage performed by RN with no evidence of gastric bleed monitor H&H, prn transfusion cont GTFs per RD GT site care BID/prn abx poor prognosis fu labs fu abd us Subjective ROS Limited/Unobtainable: No Allergies: Uncoded Allergies: TAPE (Adverse Reaction, Mild, 11/09/17) REDNESS AT TAPE SITE WHEN APPLIED TAPE Subjective was npo for abd us Objective Last 24 Hour Vital Signs Date Time Temp Pulse Resp B/P (MAP) Pulse Ox O2 Delivery O2 Flow Rate FiO2 11/11/17 09:13 106 20 70 11/11/17 09:09 105 134/90 11/11/17 09:09 105 134/90 11/11/17 08:00 70 11/11/17 08:00 98.8 105 22 134/90 94 Mechanical Ventilator 70 98.8 11/11/17 07:26 105 23 95 Mechanical Ventilator 70 11/11/17 07:17 70 11/11/17 07:17 99 23 70 11/11/17 07:17 105 23 95 Mechanical Ventilator 70 11/11/17 04:39 70 11/11/17 04:39 104 27 70 11/11/17 04:00 70 11/11/17 04:00 102 11/11/17 04:00 99.3 101 20 134/89 100 Mechanical Ventilator 70 99.3 11/11/17 03:31 100 19 80 11/11/17 01:09 104 28 80 11/11/17 01:08 80 11/11/17 00:00 98.3 104 20 147/98 98 Mechanical Ventilator 100 98.3 11/11/17 00:00 100 11/11/17 00:00 103 11/10/17 23:20 103 22 100 11/10/17 22:16 118 149/101 11/10/17 21:10 114 30 100 11/10/17 20:00 100 11/10/17 20:00 98.1 118 28 149/101 98 Mechanical Ventilator 100 98.1 11/10/17 20:00 118 11/10/17 19:31 125 149/101 11/10/17 19:30 122 31 100 11/10/17 18:22 126 174/114 11/10/17 18:03 126 32 95 Mechanical Ventilator 100 11/10/17 17:54 129 33 Mechanical Ventilator 100 11/10/17 17:54 100 11/10/17 17:54 129 33 94 Mechanical Ventilator 100 11/10/17 17:40 Mechanical Ventilator 100 11/10/17 17:05 123 33 100 11/10/17 16:00 103 11/10/17 16:00 40 11/10/17 16:00 98.6 96 29 162/104 100 Mechanical Ventilator 40 98.6 11/10/17 16:00 Mechanical Ventilator 100 11/10/17 14:39 98 28 100 11/10/17 13:15 98 151/101 11/10/17 13:02 95 33 100 11/10/17 12:00 40 11/10/17 12:00 98.1 93 22 151/101 100 Mechanical Ventilator 40 98.1 11/10/17 12:00 95 11/10/17 10:30 87 23 100 Intake and Output 11/10/17 11/11/17 19:00 07:00 Intake Total 485 ml 800 ml Output Total 4440 ml 1100 ml Balance -3955 ml -300 ml Free Water 150 ml IV Total 100 ml 200 ml Tube Feeding 135 ml 450 ml Blood Product 250 ml Output Urine Total 1500 ml 1100 ml Stool Total 50 ml Hemodialysis UF 2890 ml # Bowel Movements 50 Laboratory Tests 11/10/17 10:30: Arterial Blood pH 7.480H, Arterial Blood Partial Pressure CO2 41.3, Arterial Blood Partial Pressure O2 61.7L, Arterial Blood HCO3 30.1H, Arterial Blood Oxygen Saturation 91.9L, Arterial Blood Base Excess 6.0, Dipak Test Positive 11/11/17 07:40: White Blood Count 28.6*H, Red Blood Count 2.74L, Hemoglobin 8.0L, Hematocrit 24.1L, Mean Corpuscular Volume 88, Mean Corpuscular Hemoglobin 29.4, Mean Corpuscular Hemoglobin Concent 33.3, Red Cell Distribution Width 16.7H, Platelet Count 344, Mean Platelet Volume 5.1L, Neutrophils (%) (Auto) , Lymphocytes (%) (Auto) , Monocytes (%) (Auto) , Eosinophils (%) (Auto) , Basophils (%) (Auto) , Differential Total Cells Counted 100, Neutrophils % ( Manual) 87H, Lymphocytes % (Manual) 6L, Monocytes % (Manual) 6, Eosinophils % ( Manual) 1, Basophils % (Manual) 0, Band Neutrophils 0, Platelet Estimate Adequate, Platelet Morphology Normal, Hypochromasia , Anisocytosis 1+, Sodium Level 142, Potassium Level 3.2L, Chloride Level 106, Carbon Dioxide Level 34H, Anion Gap 2L, Blood Urea Nitrogen 36H, Creatinine 3.2H, Estimat Glomerular Filtration Rate 24.0, Glucose Level 112H, Uric Acid 5.9, Calcium Level 8.2L, Phosphorus Level 3.9, Magnesium Level 1.6L, Total Bilirubin 0.6, Aspartate Amino Transf (AST/SGOT) 25, Alanine Aminotransferase (ALT/SGPT) 26, Alkaline Phosphatase 132H, C-Reactive Protein, Quantitative 11.2H, Pro-B-Type Natriuretic Peptide 1595H, Total Protein 6.0L, Albumin 1.5L, Globulin 4.5, Albumin/Globulin Ratio 0.3L 11/11/17 08:05: Arterial Blood pH 7.553*H, Arterial Blood Partial Pressure CO2 36.1, Arterial Blood Partial Pressure O2 68.4L, Arterial Blood HCO3 31.1H, Arterial Blood Oxygen Saturation 94.1, Arterial Blood Base Excess 8.2, Dipak Test Positive Height (Feet): 5 Height (Inches): 6.00 Weight (Pounds): 211 General Appearance: lethargic EENT: normal ENT inspection Neck: supple Cardiovascular: normal rate Respiratory/Chest: decreased breath sounds Abdomen: normal bowel sounds, non tender, soft Extremities: non-tender ANGELA WAGONER Nov 11, 2017 10:06
[2017-11-11] MEDS ORDERED: Potassium Chloride 20 MEQ in NS 275 ML IVPB ONE (10:30)
--- NOTE | 2017-11-11 10:42 | Nephrology Progress Note ---
Assessment/Plan Problem List: (1) Acute renal failure (ARF) (2) Respiratory failure (3) Shock liver Assessment JULIA , due to Shock , Hemorrhagic / Septic / C dif colitis worsenning anemia Off Pressors- Shock liver resolving High Troponin: [place] Bradycardic - Vfib cardiac arrest 10/26 likely 2ry to hemorrhagic shock (drop Hgb 10.8 to 5) - GIB- Fever, ongoing Leukocytosis, worsening after code E.coli UTI w/ bacteremia Acute hypoxic resp failure- s/p Trach . Plan Plan: dialyse 11/10 next ? 11/13 has new cath right chest K IV as needed right groin cath removed being transfused add Renvela and Lactobacillus BP stablized start GT feeding HD trial as needed- on C dif treatment protocol monitor urine out put and Renal parameters discussed with RN Subjective ROS Limited/Unobtainable: Yes Objective Objective Last 24 Hour Vital Signs Date Time Temp Pulse Resp B/P (MAP) Pulse Ox O2 Delivery O2 Flow Rate FiO2 11/11/17 09:13 106 20 70 11/11/17 09:09 105 134/90 11/11/17 09:09 105 134/90 11/11/17 08:00 70 11/11/17 08:00 98.8 105 22 134/90 94 Mechanical Ventilator 70 98.8 11/11/17 07:26 105 23 95 Mechanical Ventilator 70 11/11/17 07:17 70 11/11/17 07:17 99 23 70 11/11/17 07:17 105 23 95 Mechanical Ventilator 70 11/11/17 04:39 70 11/11/17 04:39 104 27 70 11/11/17 04:00 70 11/11/17 04:00 102 11/11/17 04:00 99.3 101 20 134/89 100 Mechanical Ventilator 70 99.3 11/11/17 03:31 100 19 80 11/11/17 01:09 104 28 80 11/11/17 01:08 80 11/11/17 00:00 98.3 104 20 147/98 98 Mechanical Ventilator 100 98.3 11/11/17 00:00 100 11/11/17 00:00 103 11/10/17 23:20 103 22 100 11/10/17 22:16 118 149/101 11/10/17 21:10 114 30 100 11/10/17 20:00 100 11/10/17 20:00 98.1 118 28 149/101 98 Mechanical Ventilator 100 98.1 11/10/17 20:00 118 11/10/17 19:31 125 149/101 11/10/17 19:30 122 31 100 11/10/17 18:22 126 174/114 11/10/17 18:03 126 32 95 Mechanical Ventilator 100 11/10/17 17:54 129 33 Mechanical Ventilator 100 11/10/17 17:54 100 11/10/17 17:54 129 33 94 Mechanical Ventilator 100 11/10/17 17:40 Mechanical Ventilator 100 11/10/17 17:05 123 33 100 11/10/17 16:00 103 11/10/17 16:00 40 11/10/17 16:00 98.6 96 29 162/104 100 Mechanical Ventilator 40 98.6 11/10/17 16:00 Mechanical Ventilator 100 11/10/17 14:39 98 28 100 11/10/17 13:15 98 151/101 11/10/17 13:02 95 33 100 11/10/17 12:00 40 11/10/17 12:00 98.1 93 22 151/101 100 Mechanical Ventilator 40 98.1 11/10/17 12:00 95 Intake and Output 11/10/17 11/11/17 19:00 07:00 Intake Total 485 ml 800 ml Output Total 4440 ml 1100 ml Balance -3955 ml -300 ml Free Water 150 ml IV Total 100 ml 200 ml Tube Feeding 135 ml 450 ml Blood Product 250 ml Output Urine Total 1500 ml 1100 ml Stool Total 50 ml Hemodialysis UF 2890 ml # Bowel Movements 50 Laboratory Tests 11/11/17 07:40: White Blood Count 28.6*H, Red Blood Count 2.74L, Hemoglobin 8.0L, Hematocrit 24.1L, Mean Corpuscular Volume 88, Mean Corpuscular Hemoglobin 29.4, Mean Corpuscular Hemoglobin Concent 33.3, Red Cell Distribution Width 16.7H, Platelet Count 344, Mean Platelet Volume 5.1L, Neutrophils (%) (Auto) , Lymphocytes (%) (Auto) , Monocytes (%) (Auto) , Eosinophils (%) (Auto) , Basophils (%) (Auto) , Differential Total Cells Counted 100, Neutrophils % ( Manual) 87H, Lymphocytes % (Manual) 6L, Monocytes % (Manual) 6, Eosinophils % ( Manual) 1, Basophils % (Manual) 0, Band Neutrophils 0, Platelet Estimate Adequate, Platelet Morphology Normal, Hypochromasia , Anisocytosis 1+, Sodium Level 142, Potassium Level 3.2L, Chloride Level 106, Carbon Dioxide Level 34H, Anion Gap 2L, Blood Urea Nitrogen 36H, Creatinine 3.2H, Estimat Glomerular Filtration Rate 24.0, Glucose Level 112H, Uric Acid 5.9, Calcium Level 8.2L, Phosphorus Level 3.9, Magnesium Level 1.6L, Total Bilirubin 0.6, Aspartate Amino Transf (AST/SGOT) 25, Alanine Aminotransferase (ALT/SGPT) 26, Alkaline Phosphatase 132H, C-Reactive Protein, Quantitative 11.2H, Pro-B-Type Natriuretic Peptide 1595H, Total Protein 6.0L, Albumin 1.5L, Globulin 4.5, Albumin/Globulin Ratio 0.3L 11/11/17 08:05: Arterial Blood pH 7.553*H, Arterial Blood Partial Pressure CO2 36.1, Arterial Blood Partial Pressure O2 68.4L, Arterial Blood HCO3 31.1H, Arterial Blood Oxygen Saturation 94.1, Arterial Blood Base Excess 8.2, Dipak Test Positive Height (Feet): 5 Height (Inches): 6.00 Weight (Pounds): 211 General Appearance: no apparent distress Cardiovascular: tachycardia Respiratory/Chest: decreased breath sounds Objective no other change YVES SINHA 4, 2018 10:42
--- NOTE | 2017-11-11 11:37 | Pulmonology Progress Note ---
Assessment/Plan Assessment/Plan ASSESSMENT s/p cardiac arrest ( due to acute GI hemorrhage on 10/26) x 3 acute GI hemorrhage-persistent hypovolemic shock ( due to GI hemorrhage)-resolved elevated troponin, likely due to multiple cardiac arrest and shocks possible acute ND severely elevated LFT , likely shock liver multiorgan system failure acute anemia of blood loss, requiring 3 u PRBC s/p trach 10/23 trach malfunctioning, s/p trach exchange 10/26 persistent hypoxemia collapse R lung - improved acute renal failure acute hypoxemic RF requiring BiPAP, unable to wean ( s/p trach) severe sepsis with E coli bacteremia ( s/p Rx) E coli UTI ( s/p Rx) C dif colitis probably PNA acute bronchitis possible influenza ( s/p Rx) hematuria lactic acidosis 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 seizure disorder HTN CAD with hx of ND dysphagia, s/p PEG dementia R lateral malleolus DTI PLAN OF CARE [facility]ANTOS s/p Levophed Hemodynamically stable ABG stable this am, resp status better Vent/trach care pulm toilet CXR with improved aeration R lung, but bilateral basilar infiltrates vs atelectasis prior CXR 11/09 with complete R lung opacification, R side was elevated and CPT with HHN provided per cardio troponin likely due to cardiac arrest x 3, troponin trending down ECHO done- pEF 60-65%, no change from initial cardio added CB for BP management initial ECHO with pEF 60-65% CTA no PE hold ASA for now due to GI bleeding continue BB and statin troponin negative s/p trach exchange due to leak by surgeon, currently trach functional s/p Protonix gtt s/p emergent EGD , ulcer noted, vessel clipped recurrent bleeding sp additional transfusion 11/06 monitor counts, monitor for active bleeding strict asp precautions, s/p PEG, a/emetic prn bowel regimen rectal tube for stool containing 2 to C dif diarrhea nephro follows on HD ( new start this admission) monitor renal parameters, correct lytes as needed per nephro recs, avoid nephrotoxic renal US done earlier with normal bilateral kidney echogenicity and no hydro however due to ARF and worsening renal parameters , started on HD severely elevated LFT likely due to shock liver, trending down overall multiple organ/system failure-improving ID follows blood cx + E coli, urine cx + E coli, s/p rx Influenza negative ( but rapid test with only sensitivity 60-65%, by history high suspicion for flu), s/p Tamiflu last blood and urine cx negative leukocytosis persistent probably at least partially due to C dif stool C dif+ on po Vanco and Flagyl, urologist seen and evaluated for hematuria Cervantes seizure precautions, on Depakote , monitor levels case discussed and evaluated by supervising physician Subjective Allergies: Uncoded Allergies: TAPE (Adverse Reaction, Mild, 11/09/17) REDNESS AT TAPE SITE WHEN APPLIED TAPE Subjective still with persistent leukocytosis , afebrile anemic resp status better, FiO down titrated Objective Last 24 Hour Vital Signs Date Time Temp Pulse Resp B/P (MAP) Pulse Ox O2 Delivery O2 Flow Rate FiO2 11/11/17 10:45 94 21 50 11/11/17 09:13 106 20 70 11/11/17 09:09 105 134/90 11/11/17 09:09 105 134/90 11/11/17 08:00 103 11/11/17 08:00 70 11/11/17 08:00 98.8 105 22 134/90 94 Mechanical Ventilator 70 98.8 11/11/17 07:26 105 23 95 Mechanical Ventilator 70 11/11/17 07:17 70 11/11/17 07:17 99 23 70 11/11/17 07:17 105 23 95 Mechanical Ventilator 70 11/11/17 04:39 70 11/11/17 04:39 104 27 70 11/11/17 04:00 70 11/11/17 04:00 102 11/11/17 04:00 99.3 101 20 134/89 100 Mechanical Ventilator 70 99.3 11/11/17 03:31 100 19 80 11/11/17 01:09 104 28 80 11/11/17 01:08 80 11/11/17 00:00 98.3 104 20 147/98 98 Mechanical Ventilator 100 98.3 11/11/17 00:00 100 11/11/17 00:00 103 11/10/17 23:20 103 22 100 11/10/17 22:16 118 149/101 11/10/17 21:10 114 30 100 11/10/17 20:00 100 11/10/17 20:00 98.1 118 28 149/101 98 Mechanical Ventilator 100 98.1 11/10/17 20:00 118 11/10/17 19:31 125 149/101 11/10/17 19:30 122 31 100 11/10/17 18:22 126 174/114 11/10/17 18:03 126 32 95 Mechanical Ventilator 100 11/10/17 17:54 129 33 Mechanical Ventilator 100 11/10/17 17:54 100 11/10/17 17:54 129 33 94 Mechanical Ventilator 100 11/10/17 17:40 Mechanical Ventilator 100 11/10/17 17:05 123 33 100 11/10/17 16:00 103 11/10/17 16:00 40 11/10/17 16:00 98.6 96 29 162/104 100 Mechanical Ventilator 40 98.6 11/10/17 16:00 Mechanical Ventilator 100 11/10/17 14:39 98 28 100 11/10/17 13:15 98 151/101 11/10/17 13:02 95 33 100 11/10/17 12:00 40 11/10/17 12:00 98.1 93 22 151/101 100 Mechanical Ventilator 40 98.1 11/10/17 12:00 95 Intake and Output 11/10/17 11/11/17 19:00 07:00 Intake Total 485 ml 800 ml Output Total 4440 ml 1100 ml Balance -3955 ml -300 ml Free Water 150 ml IV Total 100 ml 200 ml Tube Feeding 135 ml 450 ml Blood Product 250 ml Output Urine Total 1500 ml 1100 ml Stool Total 50 ml Hemodialysis UF 2890 ml # Bowel Movements 50 Objective General: awake, poorly responsive , HEENT: atraumatic, normocephalic on vent AC 550-18-70% PEEP-5 Neck: trach with Portex #8, secretions thick, yellow, small Lungs: few crackles at bases Heart: HR/BP stable, regular, ST tele , RIJ CL intact, R subclavian CL intact Abdomen: soft, non-tender, active bowel sounds, Gt-feeding tube, Extremities: trace edema BLE Laboratory Tests 11/11/17 07:40: White Blood Count 28.6*H, Red Blood Count 2.74L, Hemoglobin 8.0L, Hematocrit 24.1L, Mean Corpuscular Volume 88, Mean Corpuscular Hemoglobin 29.4, Mean Corpuscular Hemoglobin Concent 33.3, Red Cell Distribution Width 16.7H, Platelet Count 344, Mean Platelet Volume 5.1L, Neutrophils (%) (Auto) , Lymphocytes (%) (Auto) , Monocytes (%) (Auto) , Eosinophils (%) (Auto) , Basophils (%) (Auto) , Differential Total Cells Counted 100, Neutrophils % ( Manual) 87H, Lymphocytes % (Manual) 6L, Monocytes % (Manual) 6, Eosinophils % ( Manual) 1, Basophils % (Manual) 0, Band Neutrophils 0, Platelet Estimate Adequate, Platelet Morphology Normal, Hypochromasia , Anisocytosis 1+, Sodium Level 142, Potassium Level 3.2L, Chloride Level 106, Carbon Dioxide Level 34H, Anion Gap 2L, Blood Urea Nitrogen 36H, Creatinine 3.2H, Estimat Glomerular Filtration Rate 24.0, Glucose Level 112H, Uric Acid 5.9, Calcium Level 8.2L, Phosphorus Level 3.9, Magnesium Level 1.6L, Total Bilirubin 0.6, Aspartate Amino Transf (AST/SGOT) 25, Alanine Aminotransferase (ALT/SGPT) 26, Alkaline Phosphatase 132H, C-Reactive Protein, Quantitative 11.2H, Pro-B-Type Natriuretic Peptide 1595H, Total Protein 6.0L, Albumin 1.5L, Globulin 4.5, Albumin/Globulin Ratio 0.3L 11/11/17 08:05: Arterial Blood pH 7.553*H, Arterial Blood Partial Pressure CO2 36.1, Arterial Blood Partial Pressure O2 68.4L, Arterial Blood HCO3 31.1H, Arterial Blood Oxygen Saturation 94.1, Arterial Blood Base Excess 8.2, Dipak Test Positive 11/11/17 11:15: C-Reactive Protein, Quantitative [Pending] Current Medications Medications (Trade) Dose Ordered Sig/Olvin Route PRN Reason Start Time Stop Time Status Last Admin Dose Admin Acetaminophen (Tylenol) 650 mg Q4H PRN RECTAL Mild Pain (Pain Scale 1-3) 10/30/17 21:00 11/20/17 20:59 Albuterol/ Ipratropium (Albuterol/ Ipratropium) 3 ml Q4HRT PRN HHN sob 11/10/17 14:45 11/15/17 23:59 Amlodipine Besylate (Norvasc) 2.5 mg Q12HR ORAL 11/10/17 13:15 12/10/17 13:14 11/11/17 09:09 Chlorhexidine Gluconate (Pamela-Hex 2%) 1 applic DAILY@2000 TOPIC 10/31/17 22:00 11/23/17 21:59 11/10/17 22:15 Famotidine (Pepcid I.v.) 20 mg Q24HRS IVP 10/30/17 21:30 11/29/17 21:29 11/10/17 22:16 Lactobacillus Acidophilus (Culturelle) 1 tab THREE TIMES A DAY GT 11/03/17 13:00 12/03/17 12:59 11/11/17 09:10 Levalbuterol HCl (Xopenex) 1.25 mg TIDRT HHN 11/10/17 19:00 11/15/17 18:59 11/11/17 07:18 Lorazepam (Ativan 2mg/ml 1ml) 2 mg Q4H PRN IV For Anxiety 11/10/17 16:45 11/17/17 23:59 11/10/17 18:42 Magnesium Sulfate 100 ml @ 100 mls/hr Q1H IVPB 11/11/17 10:30 11/11/17 12:29 11/11/17 10:47 Metoclopramide HCl (Reglan) 5 mg Q6H PRN GT Irrectractable Nausea/Vomiting 10/30/17 21:00 11/29/17 20:59 11/08/17 23:16 Metoprolol Tartrate (Lopressor) 25 mg Q12HR GT 10/30/17 21:30 11/29/17 21:29 11/11/17 09:09 Metronidazole 100 ml @ 100 mls/hr Q8HR IV 10/30/17 22:00 11/16/17 21:59 11/11/17 05:30 Nitroglycerin (Ntg) 0.4 mg Q5MIN X 3 DOSES PRN SL Prn Chest Pain 10/30/17 20:45 11/14/17 17:09 Ondansetron HCl (Zofran) 4 mg Q6H PRN IVP Nausea & Vomiting 10/30/17 21:00 11/29/17 20:59 Potassium Chloride 20 meq/ Sodium Chloride 285 ml @ 142.5 mls/ hr ONCE ONCE IVPB 11/11/17 10:30 11/11/17 12:29 Sevelamer Carbonate (Renvela) 1,600 mg THREE TIMES A DAY NG 11/04/17 13:00 12/04/17 12:59 11/11/17 09:09 Vancomycin HCl (Vancomycin) 125 mg FOUR TIMES A DAY ORAL 10/30/17 21:30 11/16/17 21:29 11/11/17 09:09 Anson (Alfonzo)Pippa NP Nov 11, 2017 11:37
[2017-11-11 12:00] VITALS: BP 126/82
--- NOTE | 2017-11-11 12:50 | Diagnostic Imaging Report ---
Indication:Abdominal pain Technique: Grayscale and duplex Doppler imaging of the abdomen performed. Comparison: None Findings: Patient was combative and as such evaluation was limited. There is a right pleural effusion noted. There is no obvious ascites or hydronephrosis. Gallbladder wall thickening is present. No obvious gallstones present. Spleen is normal in size. Liver is normal in size and grossly unremarkable. IMPRESSION: Limited study. Right pleural effusion Thickening of the gallbladder wall nonspecific.
--- NOTE | 2017-11-11 13:04 | Cardiology Progress Note ---
Assessment/Plan Assessment/Plan 1. Cardiopulmonary arrest on three separate occasions. 2. Massive gastrointestinal bleed. 3. Encephalopathy. 4. Abnormal liver function tests, likely shock liver. 5. Acute renal failure. 6. Anemia. 7. NSTEMI type2 related to cardiopulmonary resuscitation and renal insufficiency. 8. Chronic respiratory failure. 9. History of cerebrovascular accident. 10. c diff 11. htn onthe vent dialysis per dr wang tele sinus still bp is better remain on high lisa oxygen but cxr imporved ivc was 1.5 cm jsut done as i was examining the pt by the tech start on norvasc for bp skip dose before dialysis may need mroe UF Subjective ROS Limited/Unobtainable: Yes Subjective on the vent Objective Last 24 Hour Vital Signs Date Time Temp Pulse Resp B/P (MAP) Pulse Ox O2 Delivery O2 Flow Rate FiO2 11/11/17 12:59 93 11/11/17 12:00 98.9 99 23 126/82 95 Mechanical Ventilator 70 98.9 11/11/17 12:00 70 11/11/17 10:45 94 21 50 11/11/17 09:13 106 20 70 11/11/17 09:09 105 134/90 11/11/17 09:09 105 134/90 11/11/17 08:00 103 11/11/17 08:00 70 11/11/17 08:00 98.8 105 22 134/90 94 Mechanical Ventilator 70 98.8 11/11/17 07:26 105 23 95 Mechanical Ventilator 70 11/11/17 07:17 70 11/11/17 07:17 99 23 70 11/11/17 07:17 105 23 95 Mechanical Ventilator 70 11/11/17 04:39 70 11/11/17 04:39 104 27 70 11/11/17 04:00 70 11/11/17 04:00 102 11/11/17 04:00 99.3 101 20 134/89 100 Mechanical Ventilator 70 99.3 11/11/17 03:31 100 19 80 11/11/17 01:09 104 28 80 11/11/17 01:08 80 11/11/17 00:00 98.3 104 20 147/98 98 Mechanical Ventilator 100 98.3 11/11/17 00:00 100 11/11/17 00:00 103 11/10/17 23:20 103 22 100 11/10/17 22:16 118 149/101 11/10/17 21:10 114 30 100 11/10/17 20:00 100 11/10/17 20:00 98.1 118 28 149/101 98 Mechanical Ventilator 100 98.1 11/10/17 20:00 118 11/10/17 19:31 125 149/101 11/10/17 19:30 122 31 100 11/10/17 18:22 126 174/114 11/10/17 18:03 126 32 95 Mechanical Ventilator 100 11/10/17 17:54 129 33 Mechanical Ventilator 100 11/10/17 17:54 100 11/10/17 17:54 129 33 94 Mechanical Ventilator 100 11/10/17 17:40 Mechanical Ventilator 100 11/10/17 17:05 123 33 100 11/10/17 16:00 103 11/10/17 16:00 40 11/10/17 16:00 98.6 96 29 162/104 100 Mechanical Ventilator 40 98.6 11/10/17 16:00 Mechanical Ventilator 100 11/10/17 14:39 98 28 100 11/10/17 13:15 98 151/101 General Appearance: on vent, patient on isolation Intake and Output 11/10/17 11/11/17 19:00 07:00 Intake Total 485 ml 800 ml Output Total 4440 ml 1100 ml Balance -3955 ml -300 ml Free Water 150 ml IV Total 100 ml 200 ml Tube Feeding 135 ml 450 ml Blood Product 250 ml Output Urine Total 1500 ml 1100 ml Stool Total 50 ml Hemodialysis UF 2890 ml # Bowel Movements 50 Laboratory Tests Test 11/11/17 07:40 11/11/17 08:05 11/11/17 11:15 White Blood Count 28.6 K/UL (4.8-10.8) *H Red Blood Count 2.74 M/UL (4.70-6.10) L Hemoglobin 8.0 G/DL (14.2-18.0) L Hematocrit 24.1 % (42.0-52.0) L Mean Corpuscular Volume 88 FL (80-99) Mean Corpuscular Hemoglobin 29.4 PG (27.0-31.0) Mean Corpuscular Hemoglobin Concent 33.3 G/DL (32.0-36.0) Red Cell Distribution Width 16.7 % (11.6-14.8) H Platelet Count 344 K/UL (150-450) Mean Platelet Volume 5.1 FL (6.5-10.1) L Neutrophils (%) (Auto) % (45.0-75.0) Lymphocytes (%) (Auto) % (20.0-45.0) Monocytes (%) (Auto) % (1.0-10.0) Eosinophils (%) (Auto) % (0.0-3.0) Basophils (%) (Auto) % (0.0-2.0) Differential Total Cells Counted 100 Neutrophils % (Manual) 87 % (45-75) H Lymphocytes % (Manual) 6 % (20-45) L Monocytes % (Manual) 6 % (1-10) Eosinophils % (Manual) 1 % (0-3) Basophils % (Manual) 0 % (0-2) Band Neutrophils 0 % (0-8) Platelet Estimate Adequate Platelet Morphology Normal Hypochromasia Anisocytosis 1+ Sodium Level 142 MMOL/L (136-145) Potassium Level 3.2 MMOL/L (3.5-5.1) L Chloride Level 106 MMOL/L (98-107) Carbon Dioxide Level 34 MMOL/L (21-32) H Anion Gap 2 mmol/L (5-15) L Blood Urea Nitrogen 36 mg/dL (7-18) H Creatinine 3.2 MG/DL (0.55-1.30) H Estimat Glomerular Filtration Rate 24.0 mL/min (>60) Glucose Level 112 MG/DL (74-106) H Uric Acid 5.9 MG/DL (2.6-7.2) Calcium Level 8.2 MG/DL (8.5-10.1) L Phosphorus Level 3.9 MG/DL (2.5-4.9) Magnesium Level 1.6 MG/DL (1.8-2.4) L Total Bilirubin 0.6 MG/DL (0.2-1.0) Aspartate Amino Transf (AST/SGOT) 25 U/L (15-37) Alanine Aminotransferase (ALT/SGPT) 26 U/L (12-78) Alkaline Phosphatase 132 U/L (46-116) H C-Reactive Protein, Quantitative 11.2 mg/dL (0.00-0.90) H 11.3 mg/dL (0.00-0.90) H Pro-B-Type Natriuretic Peptide 1595 pg/mL (0-125) H Total Protein 6.0 G/DL (6.4-8.2) L Albumin 1.5 G/DL (3.4-5.0) L Globulin 4.5 g/dL Albumin/Globulin Ratio 0.3 (1.0-2.7) L Arterial Blood pH 7.553 (7.350-7.450) Arterial Blood Partial Pressure CO2 36.1 mmHg (35.0-45.0) Arterial Blood Partial Pressure O2 68.4 mmHg (75.0-100.0) L Arterial Blood HCO3 31.1 mmol/L (22.0-26.0) H Arterial Blood Oxygen Saturation 94.1 % (92.0-98.0) Arterial Blood Base Excess 8.2 Dipak Test Positive CHRISTEN LOVE 4, 2018 13:04
[2017-11-11 16:00] VITALS: BP 140/88
--- NOTE | 2017-11-11 16:05 | Infectious Diseases Prog Note ---
Assessment/Plan Assessment/Plan A C Diff +ve, diarrhea no sig improvement Fever, SP Leukocytosis, not improving -CXR: 10/30 : Slightly increased hazy opacity left lung base and obscuration of left hemidiaphragm, may reflect increased infiltrates and/or pleural fluid E.coli UTI w/ bacteremia ; s/p Rx -REnal US: Limited exam. No definite hydronephrosis. Empty bladder, containing a Cervantes catheter. Suspicion for Flu despite rapid test (+URI symptoms, sick contacts); s/p Rx ? Pneum 12/07 CXR : The right lung has reexpanded considerably. The right hemidiaphragm is nowvisualized. Ro Cholecystitis CT and US : Gallbladder wall edema nonspecific in nature Acute hypoxic resp failure- intubated (10/20) , SP Trach 10/23 12/18 KUB : Distended small bowel. Ileus versus obstruction. SP cardiac arrest 10/26 SP hemorrhagic shock (drop Hgb 10.8 to 5)- 10/12 GIB- transaminitis due to shock improving JULIA on HD , HD cath Lactic acidosis, resolved UGI bleed / Anemia SP EGD 10/18 and 10/26 Path: H Pylori Neg CVA with hemiplegia HTN cataract dysphagia Hx of fall CAD/MT CVA/TIA dementia seizure disorder Plan: -Continue Flagyl and oral Vanco d# , add Tygacil ( Coverage of C Diff and probable Cholecystitis ) 10/30 SP Meropenem d# 5 - 10/29 SP IV Vanco # 10 - 10/26 SP Zosyn #6 - 10/21 SP Ceftriaxone 2 g qd d# 11 - 10/17 SP empiric Tamiflu #6/5 -10/15 SP IV Vancomcyin #5, Meropenm #3 -10/13 SP Cefepime #3 -Monitor CBC/BMP, temperatures; -aspiration precautions - vent Support - HIDA further eval of LING ARMENTA RN to reposition Cervantes Cath Subjective Allergies: Uncoded Allergies: TAPE (Adverse Reaction, Mild, 11/09/17) REDNESS AT TAPE SITE WHEN APPLIED TAPE Subjective afebrile Objective Vital Signs Last 24 Hour Vital Signs Date Time Temp Pulse Resp B/P (MAP) Pulse Ox O2 Delivery O2 Flow Rate FiO2 11/11/17 14:51 94 20 40 11/11/17 13:16 16 21 98 Mechanical Ventilator 50 11/11/17 13:06 98 20 50 18 13:06 99 22 98 Mechanical Ventilator 50 11/11/17 13:06 50 11/11/17 12:59 93 11/11/17 12:00 98.9 99 23 126/82 95 Mechanical Ventilator 70 98.9 11/11/17 12:00 70 11/11/17 10:45 94 21 50 11/11/17 09:13 106 20 70 11/11/17 09:09 105 134/90 11/11/17 09:09 105 134/90 11/11/17 08:00 103 11/11/17 08:00 70 11/11/17 08:00 98.8 105 22 134/90 94 Mechanical Ventilator 70 98.8 11/11/17 07:26 105 23 95 Mechanical Ventilator 70 11/11/17 07:17 70 11/11/17 07:17 99 23 70 11/11/17 07:17 105 23 95 Mechanical Ventilator 70 11/11/17 04:39 70 11/11/17 04:39 104 27 70 11/11/17 04:00 70 11/11/17 04:00 102 11/11/17 04:00 99.3 101 20 134/89 100 Mechanical Ventilator 70 99.3 11/11/17 03:31 100 19 80 11/11/17 01:09 104 28 80 11/11/17 01:08 80 11/11/17 00:00 98.3 104 20 147/98 98 Mechanical Ventilator 100 98.3 11/11/17 00:00 100 11/11/17 00:00 103 11/10/17 23:20 103 22 100 11/10/17 22:16 118 149/101 11/10/17 21:10 114 30 100 11/10/17 20:00 100 11/10/17 20:00 98.1 118 28 149/101 98 Mechanical Ventilator 100 98.1 11/10/17 20:00 118 11/10/17 19:31 125 149/101 11/10/17 19:30 122 31 100 18 18:22 126 174/114 11/10/17 18:03 126 32 95 Mechanical Ventilator 100 11/10/17 17:54 129 33 Mechanical Ventilator 100 11/10/17 17:54 100 3/3/18 17:54 129 33 94 Mechanical Ventilator 100 11/10/17 17:40 Mechanical Ventilator 100 11/10/17 17:05 123 33 100 11/10/17 16:00 103 11/10/17 16:00 40 11/10/17 16:00 98.6 96 29 162/104 100 Mechanical Ventilator 40 98.6 11/10/17 16:00 Mechanical Ventilator 100 Height (Feet): 5 Height (Inches): 6.00 Weight (Pounds): 211 HEENT: mucous membranes moist Respiratory/Chest: no accessory muscle use Cardiovascular: regular rhythm Abdomen: soft, non tender Laboratory Tests Test 11/11/17 07:40 11/11/17 08:05 11/11/17 11:15 White Blood Count 28.6 K/UL (4.8-10.8) *H Red Blood Count 2.74 M/UL (4.70-6.10) L Hemoglobin 8.0 G/DL (14.2-18.0) L Hematocrit 24.1 % (42.0-52.0) L Mean Corpuscular Volume 88 FL (80-99) Mean Corpuscular Hemoglobin 29.4 PG (27.0-31.0) Mean Corpuscular Hemoglobin Concent 33.3 G/DL (32.0-36.0) Red Cell Distribution Width 16.7 % (11.6-14.8) H Platelet Count 344 K/UL (150-450) Mean Platelet Volume 5.1 FL (6.5-10.1) L Neutrophils (%) (Auto) % (45.0-75.0) Lymphocytes (%) (Auto) % (20.0-45.0) Monocytes (%) (Auto) % (1.0-10.0) Eosinophils (%) (Auto) % (0.0-3.0) Basophils (%) (Auto) % (0.0-2.0) Differential Total Cells Counted 100 Neutrophils % (Manual) 87 % (45-75) H Lymphocytes % (Manual) 6 % (20-45) L Monocytes % (Manual) 6 % (1-10) Eosinophils % (Manual) 1 % (0-3) Basophils % (Manual) 0 % (0-2) Band Neutrophils 0 % (0-8) Platelet Estimate Adequate Platelet Morphology Normal Hypochromasia Anisocytosis 1+ Sodium Level 142 MMOL/L (136-145) Potassium Level 3.2 MMOL/L (3.5-5.1) L Chloride Level 106 MMOL/L (98-107) Carbon Dioxide Level 34 MMOL/L (21-32) H Anion Gap 2 mmol/L (5-15) L Blood Urea Nitrogen 36 mg/dL (7-18) H Creatinine 3.2 MG/DL (0.55-1.30) H Estimat Glomerular Filtration Rate 24.0 mL/min (>60) Glucose Level 112 MG/DL (74-106) H Uric Acid 5.9 MG/DL (2.6-7.2) Calcium Level 8.2 MG/DL (8.5-10.1) L Phosphorus Level 3.9 MG/DL (2.5-4.9) Magnesium Level 1.6 MG/DL (1.8-2.4) L Total Bilirubin 0.6 MG/DL (0.2-1.0) Aspartate Amino Transf (AST/SGOT) 25 U/L (15-37) Alanine Aminotransferase (ALT/SGPT) 26 U/L (12-78) Alkaline Phosphatase 132 U/L (46-116) H C-Reactive Protein, Quantitative 11.2 mg/dL (0.00-0.90) H 11.3 mg/dL (0.00-0.90) H Pro-B-Type Natriuretic Peptide 1595 pg/mL (0-125) H Total Protein 6.0 G/DL (6.4-8.2) L Albumin 1.5 G/DL (3.4-5.0) L Globulin 4.5 g/dL Albumin/Globulin Ratio 0.3 (1.0-2.7) L Arterial Blood pH 7.553 (7.350-7.450) Arterial Blood Partial Pressure CO2 36.1 mmHg (35.0-45.0) Arterial Blood Partial Pressure O2 68.4 mmHg (75.0-100.0) L Arterial Blood HCO3 31.1 mmol/L (22.0-26.0) H Arterial Blood Oxygen Saturation 94.1 % (92.0-98.0) Arterial Blood Base Excess 8.2 Dipak Test Positive Current Medications Medications (Trade) Dose Ordered Sig/Olvin Route PRN Reason Start Time Stop Time Status Last Admin Dose Admin Acetaminophen (Tylenol) 650 mg Q4H PRN RECTAL Mild Pain (Pain Scale 1-3) 10/30/17 21:00 11/20/17 20:59 Albuterol/ Ipratropium (Albuterol/ Ipratropium) 3 ml Q4HRT PRN HHN sob 11/10/17 14:45 11/15/17 23:59 Amlodipine Besylate (Norvasc) 2.5 mg Q12HR ORAL 11/10/17 13:15 12/10/17 13:14 11/11/17 09:09 Chlorhexidine Gluconate (Pamela-Hex 2%) 1 applic DAILY@2000 TOPIC 10/31/17 22:00 11/23/17 21:59 11/10/17 22:15 Famotidine (Pepcid I.v.) 20 mg Q24HRS IVP 10/30/17 21:30 11/29/17 21:29 11/10/17 22:16 Lactobacillus Acidophilus (Culturelle) 1 tab THREE TIMES A DAY GT 11/03/17 13:00 12/03/17 12:59 11/11/17 12:44 Levalbuterol HCl (Xopenex) 1.25 mg TIDRT HHN 11/10/17 19:00 11/15/17 18:59 11/11/17 13:06 Lorazepam (Ativan 2mg/ml 1ml) 2 mg Q4H PRN IV For Anxiety 11/10/17 16:45 11/17/17 23:59 11/10/17 18:42 Metoclopramide HCl (Reglan) 5 mg Q6H PRN GT Irrectractable Nausea/Vomiting 10/30/17 21:00 11/29/17 20:59 11/08/17 23:16 Metoprolol Tartrate (Lopressor) 25 mg Q12HR GT 10/30/17 21:30 11/29/17 21:29 11/11/17 09:09 Metronidazole 100 ml @ 100 mls/hr Q8HR IV 10/30/17 22:00 11/16/17 21:59 11/11/17 14:09 Nitroglycerin (Ntg) 0.4 mg Q5MIN X 3 DOSES PRN SL Prn Chest Pain 10/30/17 20:45 11/14/17 17:09 Ondansetron HCl (Zofran) 4 mg Q6H PRN IVP Nausea & Vomiting 10/30/17 21:00 11/29/17 20:59 Sevelamer Carbonate (Renvela) 1,600 mg THREE TIMES A DAY NG 11/04/17 13:00 12/04/17 12:59 11/11/17 12:44 Vancomycin HCl (Vancomycin) 125 mg FOUR TIMES A DAY ORAL 10/30/17 21:30 11/16/17 21:29 11/11/17 12:44 FAUSTINO AGARWAL M.D. Nov 11, 2017 16:05
[2017-11-11] MEDS ORDERED: Tubing IV Secondary IV ONE ×2 (16:50→18:27)
[2017-11-11] MEDS ORDERED: Tigecycline 100 MG in D5W 110 ML IVPB ONE (17:00)
[2017-11-11] MEDS ORDERED: NS 275ml ONE ×2 (17:20→18:27)
[2017-11-11] MEDS ORDERED: Tubing Blood Filter IV ONE (18:27)
[2017-11-11 20:00] VITALS: BP 144/86
[2017-11-11] MEDS: Dyna-Hex 2% Top Sol 2oz TOPIC SCH (20:08)
[2017-11-11] MEDS: Vancomycin oral 125mg/2.5ml GT SCH (20:37)
[2017-11-12] VITALS: BP 124/88
[2017-11-12 04:00] VITALS: BP 130/79
[2017-11-12] MEDS: Tigecycline 50 MG in D5W 110 ML IVPB SCH ×2 (04:39→18:23)
[2017-11-12 07:21] LABS: HEMATOCRIT 23.1 % (42.0-52.0); HEMOGLOBIN 7.7 G/DL (14.2-18.0); MEAN CORPUSCULAR VOLUME 89 FL (80-99); PLATELET COUNT 374 K/UL (150-450); RED BLOOD COUNT 2.59 M/UL (4.70-6.10); RED CELL DISTRIBUTION WIDTH 16.2 % (11.6-14.8)
[2017-11-12 07:26] LABS: WHITE BLOOD COUNT 24.7 K/UL (4.8-10.8)
[2017-11-12] MEDS: Levalbuterol Inh UD 1.25mg/0.5ml HHN SCH ×3 (07:38→20:21)
[2017-11-12 07:51] LABS: ALANINE AMINOTRANSFERASE 23 U/L (12-78); ALBUMIN 1.5 G/DL (3.4-5.0); ALBUMIN/GLOBULIN RATIO 0.3 (1.0-2.7); ALKALINE PHOSPHATASE 154 U/L (46-116); ANION GAP 4 mmol/L (5-15); ASPARTATE AMINO TRANSFERASE 22 U/L (15-37); BILIRUBIN,TOTAL 0.5 MG/DL (0.2-1.0); BLOOD UREA NITROGEN 36 mg/dL (7-18); CALCIUM 8.2 MG/DL (8.5-10.1); CARBON DIOXIDE 33 MMOL/L (21-32); CHLORIDE 108 MMOL/L (98-107); PHOSPHORUS 3.1 MG/DL (2.5-4.9); POTASSIUM 3.2 MMOL/L (3.5-5.1); SODIUM 145 MMOL/L (136-145)
[2017-11-12 08:00] VITALS: BP 149/77
[2017-11-12] MEDS: Lactobacillus-GG tablet GT SCH ×3 (09:32→18:23)
[2017-11-12] MEDS: Metoclopramide 10mg/10ml Liq GT PRN (09:32)
[2017-11-12] MEDS: Renvela 800mg Pkt NG SCH (09:34)
[2017-11-12] MEDS: Vancomycin oral 125mg/2.5ml GT SCH ×4 (09:34→21:23)
[2017-11-12] MEDS: Metoprolol 25mg tab GT SCH ×2 (09:40→21:23)
[2017-11-12] MEDS ORDERED: Potassium Chloride 30 MEQ in Sodium Chloride 500ML 550 ML IVPB ONE (11:00)
--- NOTE | 2017-11-12 11:11 | Nephrology Progress Note ---
Assessment/Plan Problem List: (1) Acute renal failure (ARF) (2) Respiratory failure (3) Shock liver Assessment Cr stable 3 JULIA , due to Shock , Hemorrhagic / Septic / C dif colitis worsenning anemia Off Pressors- Shock liver resolving High Troponin: AL Bradycardic - Vfib cardiac arrest 10/26 likely 2ry to hemorrhagic shock (drop Hgb 10.8 to 5) - GIB- Fever, ongoing Leukocytosis, worsening after code E.coli UTI w/ bacteremia Acute hypoxic resp failure- s/p Trach . Plan Plan: dialyse 11/10 next ? ? may not need any more- K supplement Albumin bollous DC Phos binders change norvasc to cardiazem has new cath right chest K IV as needed right groin cath removed being transfused add Renvela and Lactobacillus BP stablized start GT feeding HD trial as needed- on C dif treatment protocol monitor urine out put and Renal parameters discussed with RN Subjective ROS Limited/Unobtainable: Yes Objective Objective Last 24 Hour Vital Signs Date Time Temp Pulse Resp B/P (MAP) Pulse Ox O2 Delivery O2 Flow Rate FiO2 11/12/17 09:40 111 149/77 11/12/17 09:33 111 149/77 11/12/17 09:24 107 22 40 11/12/17 08:00 108 11/12/17 08:00 98.8 111 22 149/77 95 Mechanical Ventilator 60 98.8 11/12/17 07:45 106 22 98 Mechanical Ventilator 40 11/12/17 07:35 110 20 98 Mechanical Ventilator 40 11/12/17 07:29 110 20 40 11/12/17 05:16 102 22 100 11/12/17 04:00 60 11/12/17 04:00 98.9 106 22 130/79 95 Mechanical Ventilator 60 98.9 11/12/17 04:00 102 11/12/17 03:38 101 22 60 11/12/17 01:11 105 22 100 11/12/17 00:00 103 11/12/17 00:00 100 11/12/17 00:00 98.3 105 22 124/88 96 Mechanical Ventilator 100 98.3 11/11/17 23:13 113 22 40 11/11/17 21:08 117 22 40 11/11/17 20:37 117 144/86 11/11/17 20:36 117 144/86 11/11/17 20:00 98.8 117 24 144/86 95 Mechanical Ventilator 100 98.8 11/11/17 20:00 100 11/11/17 20:00 125 11/11/17 19:54 118 22 94 Mechanical Ventilator 40 11/11/17 19:44 40 11/11/17 19:43 118 22 92 Mechanical Ventilator 40 11/11/17 19:41 118 22 40 11/11/17 17:15 104 22 40 11/11/17 16:00 98.8 114 24 140/88 97 Mechanical Ventilator 50 98.8 11/11/17 16:00 70 11/11/17 16:00 119 11/11/17 14:51 94 20 40 11/11/17 13:16 16 21 98 Mechanical Ventilator 50 11/11/17 13:06 98 20 50 11/11/17 13:06 99 22 98 Mechanical Ventilator 50 11/11/17 13:06 50 11/11/17 12:59 93 11/11/17 12:00 98.9 99 23 126/82 95 Mechanical Ventilator 70 98.9 11/11/17 12:00 70 Intake and Output 11/11/17 11/12/17 19:00 07:00 Intake Total 835 ml 435 ml Output Total 830 ml 700 ml Balance 5 ml -265 ml Free Water 150 ml IV Total 100 ml 210 ml Tube Feeding 585 ml 225 ml Output Urine Total 800 ml 600 ml Stool Total 30 ml 100 ml Laboratory Tests 11/11/17 11:15: C-Reactive Protein, Quantitative 11.3H 11/12/17 05:50: White Blood Count 24.7*H, Red Blood Count 2.59L, Hemoglobin 7.7L, Hematocrit 23.1L, Mean Corpuscular Volume 89, Mean Corpuscular Hemoglobin 29.8, Mean Corpuscular Hemoglobin Concent 33.5, Red Cell Distribution Width 16.2H, Platelet Count 374, Mean Platelet Volume 5.5L, Neutrophils (%) (Auto) , Lymphocytes (%) (Auto) , Monocytes (%) (Auto) , Eosinophils (%) (Auto) , Basophils (%) (Auto) , Differential Total Cells Counted 100, Neutrophils % ( Manual) 78H, Lymphocytes % (Manual) 10L, Monocytes % (Manual) 11H, Eosinophils % (Manual) 1, Basophils % (Manual) 0, Band Neutrophils 0, Platelet Estimate Adequate, Platelet Morphology Normal, Hypochromasia 1+, Anisocytosis 1+, Sodium Level 145, Potassium Level 3.2L, Chloride Level 108H, Carbon Dioxide Level 33H, Anion Gap 4L, Blood Urea Nitrogen 36H, Creatinine 3.0H, Estimat Glomerular Filtration Rate 25.9, Glucose Level 107H, Calcium Level 8.2L, Phosphorus Level 3.1, Magnesium Level 1.7L, Total Bilirubin 0.5, Aspartate Amino Transf (AST/SGOT ) 22, Alanine Aminotransferase (ALT/SGPT) 23, Alkaline Phosphatase 154H, Pro-B- Type Natriuretic Peptide 1170H, Total Protein 6.5, Albumin 1.5L, Globulin 5.0, Albumin/Globulin Ratio 0.3L Height (Feet): 5 Height (Inches): 6.00 Weight (Pounds): 216 General Appearance: no apparent distress Cardiovascular: tachycardia Respiratory/Chest: decreased breath sounds Abdomen: distended Objective no other change YVES SINHA Nov 12, 2017 11:10
--- NOTE | 2017-11-12 11:21 | Pulmonolgy Critical Care Note ---
Critical Care - Asmt/Plan Problems: (1) Collapse of right lung (2) Acute respiratory failure (3) Acute renal failure (ARF) (4) Pneumonia (5) Sepsis (6) Epileptic seizure, generalized (7) Feeding by G-tube (8) C. difficile colitis Respiratory: monitor respiratory rate, adjust FIO2, CXR - LLL atelectasis Cardiac: continue to monitor HR/BP Renal: F/U I&O, keep IV fluid Infectious Disease: check cultures Gastrointestinal: continue feedings/current rate, hold feedings Endocrine: check TSH, check HgA1C Neurologic: PRN Ativan, PRN Morphine Affect: PRN ativan Critical Care - Objective Last 24 Hour Vital Signs Date Time Temp Pulse Resp B/P (MAP) Pulse Ox O2 Delivery O2 Flow Rate FiO2 11/12/17 09:40 111 149/77 11/12/17 09:33 111 149/77 11/12/17 09:24 107 22 40 11/12/17 08:00 60 11/12/17 08:00 108 11/12/17 08:00 98.8 111 22 149/77 95 Mechanical Ventilator 60 98.8 11/12/17 07:45 106 22 98 Mechanical Ventilator 40 11/12/17 07:35 110 20 98 Mechanical Ventilator 40 11/12/17 07:29 110 20 40 11/12/17 05:16 102 22 100 11/12/17 04:00 60 11/12/17 04:00 98.9 106 22 130/79 95 Mechanical Ventilator 60 98.9 11/12/17 04:00 102 11/12/17 03:38 101 22 60 11/12/17 01:11 105 22 100 11/12/17 00:00 103 11/12/17 00:00 100 11/12/17 00:00 98.3 105 22 124/88 96 Mechanical Ventilator 100 98.3 11/11/17 23:13 113 22 40 11/11/17 21:08 117 22 40 11/11/17 20:37 117 144/86 11/11/17 20:36 117 144/86 11/11/17 20:00 98.8 117 24 144/86 95 Mechanical Ventilator 100 98.8 11/11/17 20:00 100 11/11/17 20:00 125 11/11/17 19:54 118 22 94 Mechanical Ventilator 40 11/11/17 19:44 40 11/11/17 19:43 118 22 92 Mechanical Ventilator 40 11/11/17 19:41 118 22 40 11/11/17 17:15 104 22 40 11/11/17 16:00 98.8 114 24 140/88 97 Mechanical Ventilator 50 98.8 11/11/17 16:00 70 11/11/17 16:00 119 11/11/17 14:51 94 20 40 11/11/17 13:16 16 21 98 Mechanical Ventilator 50 11/11/17 13:06 98 20 50 11/11/17 13:06 99 22 98 Mechanical Ventilator 50 11/11/17 13:06 50 11/11/17 12:59 93 11/11/17 12:00 98.9 99 23 126/82 95 Mechanical Ventilator 70 98.9 11/11/17 12:00 70 Status: awake Condition: critical Lungs: chest wall tender Heart: HR/BP stable, regular Abdomen: non-tender, active bowel sounds, feeding tube Extremities: no C/C/E, edema Decubiti: location Critical Care - Subjective ROS Limited/Unobtainable: Yes Condition: critical EKG Rhythm: Sinus Rhythm FI02: 40 Vent Support Breath Rate: 18 Vent Support Mode: AC Vent Tidal Volume: 550 Sputum Amount: Moderate PEEP: 7.0 PIP: 24 Tube Feeding Amount: 45 I&O: Intake and Output 11/11/17 11/12/17 19:00 07:00 Intake Total 835 ml 435 ml Output Total 830 ml 700 ml Balance 5 ml -265 ml Free Water 150 ml IV Total 100 ml 210 ml Tube Feeding 585 ml 225 ml Output Urine Total 800 ml 600 ml Stool Total 30 ml 100 ml CXR: no new changes, trach in place ET-Tube: 8.0 ET Position: 24 Labs: Laboratory Tests Test 11/12/17 05:50 White Blood Count 24.7 K/UL (4.8-10.8) *H Red Blood Count 2.59 M/UL (4.70-6.10) L Hemoglobin 7.7 G/DL (14.2-18.0) L Hematocrit 23.1 % (42.0-52.0) L Mean Corpuscular Volume 89 FL (80-99) Mean Corpuscular Hemoglobin 29.8 PG (27.0-31.0) Mean Corpuscular Hemoglobin Concent 33.5 G/DL (32.0-36.0) Red Cell Distribution Width 16.2 % (11.6-14.8) H Platelet Count 374 K/UL (150-450) Mean Platelet Volume 5.5 FL (6.5-10.1) L Neutrophils (%) (Auto) % (45.0-75.0) Lymphocytes (%) (Auto) % (20.0-45.0) Monocytes (%) (Auto) % (1.0-10.0) Eosinophils (%) (Auto) % (0.0-3.0) Basophils (%) (Auto) % (0.0-2.0) Differential Total Cells Counted 100 Neutrophils % (Manual) 78 % (45-75) H Lymphocytes % (Manual) 10 % (20-45) L Monocytes % (Manual) 11 % (1-10) H Eosinophils % (Manual) 1 % (0-3) Basophils % (Manual) 0 % (0-2) Band Neutrophils 0 % (0-8) Platelet Estimate Adequate Platelet Morphology Normal Hypochromasia 1+ Anisocytosis 1+ Sodium Level 145 MMOL/L (136-145) Potassium Level 3.2 MMOL/L (3.5-5.1) L Chloride Level 108 MMOL/L (98-107) H Carbon Dioxide Level 33 MMOL/L (21-32) H Anion Gap 4 mmol/L (5-15) L Blood Urea Nitrogen 36 mg/dL (7-18) H Creatinine 3.0 MG/DL (0.55-1.30) H Estimat Glomerular Filtration Rate 25.9 mL/min (>60) Glucose Level 107 MG/DL (74-106) H Calcium Level 8.2 MG/DL (8.5-10.1) L Phosphorus Level 3.1 MG/DL (2.5-4.9) Magnesium Level 1.7 MG/DL (1.8-2.4) L Total Bilirubin 0.5 MG/DL (0.2-1.0) Aspartate Amino Transf (AST/SGOT) 22 U/L (15-37) Alanine Aminotransferase (ALT/SGPT) 23 U/L (12-78) Alkaline Phosphatase 154 U/L (46-116) H C-Reactive Protein, Quantitative Pending Pro-B-Type Natriuretic Peptide 1170 pg/mL (0-125) H Total Protein 6.5 G/DL (6.4-8.2) Albumin 1.5 G/DL (3.4-5.0) L Globulin 5.0 g/dL Albumin/Globulin Ratio 0.3 (1.0-2.7) L EDDIE COLES Nov 12, 2017 11:21
--- NOTE | 2017-11-12 11:26 | Diagnostic Imaging Report ---
Indication: Shortness of breath Technique: One view of the chest Comparison: 11/10/2017 Findings: Right jugular temporary dialysis catheter, right subclavian central venous catheter, tracheostomy remain. There is overall decreased bilateral infiltrates at the lung bases, with some residual at the right lung base. However, there is increased pleural fluid on the left, and there is increased left basilar atelectasis, possibly of the entire left, manifested by slight leftward mediastinal shift. Impression: Increased left pleural fluid and and left basilar atelectasis. This was discussed by phone with Dr. Martines at the time of interpretation Improved bilateral basilar infiltrates, over 2 days Other stable findings as described
--- NOTE | 2017-11-12 11:33 | GI Progress Note ---
Assessment/Plan Problems: (1) Dysphagia ICD Codes: R13.10 - Dysphagia, unspecified SNOMED: 48030561, 211876011 (2) Dementia ICD Codes: F03.90 - Unspecified dementia without behavioral disturbance SNOMED: 19129798 (3) PEG (percutaneous endoscopic gastrostomy) adjustment/replacement/removal ICD Codes: Z43.1 - Encounter for attention to gastrostomy SNOMED: 071763556, 253253716 (4) CVA, old, hemiparesis ICD Codes: I69.359 - Hemiplegia and hemiparesis following cerebral infarction affecting unspecified side SNOMED: 96029616, 87849336, 3923112268756 Status: unchanged Status Narrative Discussed with Dr. Campos. Assessment/Plan s/p EGD and hemostasis cdiff positive >> dc ppi, H2B BID gastric lavage performed by RN with no evidence of gastric bleed monitor H&H, prn transfusion cont GTFs per RD GT site care BID/prn abx poor prognosis fu labs The patient was seen and examined at bedside and all new and available data was reviewed in the patients chart. I agree with the above findings, impression and plan. (Patient seen earlier today. Signature stamp does not reflect patient encounter time.). - Evie Campos MD Subjective Subjective limited Objective Last 24 Hour Vital Signs Date Time Temp Pulse Resp B/P (MAP) Pulse Ox O2 Delivery O2 Flow Rate FiO2 11/12/17 11:23 110 25 40 11/12/17 09:40 111 149/77 11/12/17 09:33 111 149/77 11/12/17 09:24 107 22 40 11/12/17 08:00 60 11/12/17 08:00 108 11/12/17 08:00 98.8 111 22 149/77 95 Mechanical Ventilator 60 98.8 11/12/17 07:45 106 22 98 Mechanical Ventilator 40 11/12/17 07:35 110 20 98 Mechanical Ventilator 40 11/12/17 07:29 110 20 40 11/12/17 05:16 102 22 100 11/12/17 04:00 60 11/12/17 04:00 98.9 106 22 130/79 95 Mechanical Ventilator 60 98.9 11/12/17 04:00 102 11/12/17 03:38 101 22 60 11/12/17 01:11 105 22 100 11/12/17 00:00 103 11/12/17 00:00 100 11/12/17 00:00 98.3 105 22 124/88 96 Mechanical Ventilator 100 98.3 11/11/17 23:13 113 22 40 11/11/17 21:08 117 22 40 11/11/17 20:37 117 144/86 11/11/17 20:36 117 144/86 11/11/17 20:00 98.8 117 24 144/86 95 Mechanical Ventilator 100 98.8 11/11/17 20:00 100 11/11/17 20:00 125 11/11/17 19:54 118 22 94 Mechanical Ventilator 40 11/11/17 19:44 40 11/11/17 19:43 118 22 92 Mechanical Ventilator 40 11/11/17 19:41 118 22 40 11/11/17 17:15 104 22 40 11/11/17 16:00 98.8 114 24 140/88 97 Mechanical Ventilator 50 98.8 11/11/17 16:00 70 11/11/17 16:00 119 11/11/17 14:51 94 20 40 11/11/17 13:16 16 21 98 Mechanical Ventilator 50 11/11/17 13:06 98 20 50 11/11/17 13:06 99 22 98 Mechanical Ventilator 50 11/11/17 13:06 50 11/11/17 12:59 93 11/11/17 12:00 98.9 99 23 126/82 95 Mechanical Ventilator 70 98.9 11/11/17 12:00 70 Intake and Output 11/11/17 11/12/17 19:00 07:00 Intake Total 835 ml 435 ml Output Total 830 ml 700 ml Balance 5 ml -265 ml Free Water 150 ml IV Total 100 ml 210 ml Tube Feeding 585 ml 225 ml Output Urine Total 800 ml 600 ml Stool Total 30 ml 100 ml Laboratory Tests Test 11/12/17 05:50 White Blood Count 24.7 K/UL (4.8-10.8) *H Red Blood Count 2.59 M/UL (4.70-6.10) L Hemoglobin 7.7 G/DL (14.2-18.0) L Hematocrit 23.1 % (42.0-52.0) L Mean Corpuscular Volume 89 FL (80-99) Mean Corpuscular Hemoglobin 29.8 PG (27.0-31.0) Mean Corpuscular Hemoglobin Concent 33.5 G/DL (32.0-36.0) Red Cell Distribution Width 16.2 % (11.6-14.8) H Platelet Count 374 K/UL (150-450) Mean Platelet Volume 5.5 FL (6.5-10.1) L Neutrophils (%) (Auto) % (45.0-75.0) Lymphocytes (%) (Auto) % (20.0-45.0) Monocytes (%) (Auto) % (1.0-10.0) Eosinophils (%) (Auto) % (0.0-3.0) Basophils (%) (Auto) % (0.0-2.0) Differential Total Cells Counted 100 Neutrophils % (Manual) 78 % (45-75) H Lymphocytes % (Manual) 10 % (20-45) L Monocytes % (Manual) 11 % (1-10) H Eosinophils % (Manual) 1 % (0-3) Basophils % (Manual) 0 % (0-2) Band Neutrophils 0 % (0-8) Platelet Estimate Adequate Platelet Morphology Normal Hypochromasia 1+ Anisocytosis 1+ Sodium Level 145 MMOL/L (136-145) Potassium Level 3.2 MMOL/L (3.5-5.1) L Chloride Level 108 MMOL/L (98-107) H Carbon Dioxide Level 33 MMOL/L (21-32) H Anion Gap 4 mmol/L (5-15) L Blood Urea Nitrogen 36 mg/dL (7-18) H Creatinine 3.0 MG/DL (0.55-1.30) H Estimat Glomerular Filtration Rate 25.9 mL/min (>60) Glucose Level 107 MG/DL (74-106) H Calcium Level 8.2 MG/DL (8.5-10.1) L Phosphorus Level 3.1 MG/DL (2.5-4.9) Magnesium Level 1.7 MG/DL (1.8-2.4) L Total Bilirubin 0.5 MG/DL (0.2-1.0) Aspartate Amino Transf (AST/SGOT) 22 U/L (15-37) Alanine Aminotransferase (ALT/SGPT) 23 U/L (12-78) Alkaline Phosphatase 154 U/L (46-116) H C-Reactive Protein, Quantitative Pending Pro-B-Type Natriuretic Peptide 1170 pg/mL (0-125) H Total Protein 6.5 G/DL (6.4-8.2) Albumin 1.5 G/DL (3.4-5.0) L Globulin 5.0 g/dL Albumin/Globulin Ratio 0.3 (1.0-2.7) L Height (Feet): 5 Height (Inches): 6.00 Weight (Pounds): 216 General Appearance: WD/WN, no apparent distress, alert, thin Cardiovascular: normal rate Respiratory/Chest: normal breath sounds, no respiratory distress, other - mech vent Abdominal Exam: normal bowel sounds, non tender, soft, GT site - c/d/i Extremities: non-tender Laura Lucas N.P. Nov 12, 2017 11:33 ANGELA CAMPOS Nov 20, 2017 13:20
[2017-11-12] MEDS ORDERED: Morphine Sulfate 2mg/ml Inj IVP PRN (12:00)
[2017-11-12 12:45] VITALS: BP 126/79
[2017-11-12] MEDS: dilTIAZem HCl 30mg tab GT SCH ×2 (14:00→21:28)
[2017-11-12 16:00] VITALS: BP 145/89
--- NOTE | 2017-11-12 19:57 | Cardiology Progress Note ---
Assessment/Plan Assessment/Plan 1. Cardiopulmonary arrest on three separate occasions. 2. Massive gastrointestinal bleed. 3. Encephalopathy. 4. Abnormal liver function tests, likely shock liver. 5. Acute renal failure. 6. Anemia. 7. NSTEMI type2 related to cardiopulmonary resuscitation and renal insufficiency. 8. Chronic respiratory failure. 9. History of cerebrovascular accident. 10. c diff 11. htn onthe vent dialysis per dr wang tele sinus still bp is better remain on high lisa oxygen but cxr imporved start on norvasc for bp skip dose before dialysis may need mroe UF hgb low but relatively stable cxr personally reviewed Subjective ROS Limited/Unobtainable: Yes Subjective on the vent Objective Last 24 Hour Vital Signs Date Time Temp Pulse Resp B/P (MAP) Pulse Ox O2 Delivery O2 Flow Rate FiO2 11/12/17 17:25 80 11/12/17 17:17 102 29 60 11/12/17 16:00 97.8 98 20 145/89 93 Mechanical Ventilator 40 97.8 98 11/12/17 16:00 60 11/12/17 16:00 100 11/12/17 15:21 112 32 100 11/12/17 14:00 98 145/89 11/12/17 13:42 Mechanical Ventilator 11/12/17 13:42 Mechanical Ventilator 11/12/17 13:09 98.6 11/12/17 13:06 108 25 40 11/12/17 12:45 98.6 96 20 126/79 93 Mechanical Ventilator 40 98.6 11/12/17 12:39 98.8 11/12/17 12:00 60 11/12/17 11:23 110 25 40 11/12/17 09:40 111 149/77 11/12/17 09:33 111 149/77 11/12/17 09:24 107 22 40 11/12/17 08:00 60 11/12/17 08:00 108 11/12/17 08:00 98.8 111 22 149/77 95 Mechanical Ventilator 60 98.8 11/12/17 07:45 106 22 98 Mechanical Ventilator 40 11/12/17 07:35 110 20 98 Mechanical Ventilator 40 11/12/17 07:29 110 20 40 11/12/17 05:16 102 22 100 11/12/17 04:00 60 11/12/17 04:00 98.9 106 22 130/79 95 Mechanical Ventilator 60 98.9 11/12/17 04:00 102 11/12/17 03:38 101 22 60 11/12/17 01:11 105 22 100 11/12/17 00:00 103 11/12/17 00:00 100 11/12/17 00:00 98.3 105 22 124/88 96 Mechanical Ventilator 100 98.3 11/11/17 23:13 113 22 40 11/11/17 21:08 117 22 40 11/11/17 20:37 117 144/86 11/11/17 20:36 117 144/86 11/11/17 20:00 98.8 117 24 144/86 95 Mechanical Ventilator 100 98.8 11/11/17 20:00 100 11/11/17 20:00 125 General Appearance: no apparent distress, alert, on vent, patient on isolation Intake and Output 11/11/17 11/12/17 19:00 07:00 Intake Total 835 ml 435 ml Output Total 830 ml 700 ml Balance 5 ml -265 ml Free Water 150 ml IV Total 100 ml 210 ml Tube Feeding 585 ml 225 ml Output Urine Total 800 ml 600 ml Stool Total 30 ml 100 ml Laboratory Tests Test 11/12/17 05:50 White Blood Count 24.7 K/UL (4.8-10.8) *H Red Blood Count 2.59 M/UL (4.70-6.10) L Hemoglobin 7.7 G/DL (14.2-18.0) L Hematocrit 23.1 % (42.0-52.0) L Mean Corpuscular Volume 89 FL (80-99) Mean Corpuscular Hemoglobin 29.8 PG (27.0-31.0) Mean Corpuscular Hemoglobin Concent 33.5 G/DL (32.0-36.0) Red Cell Distribution Width 16.2 % (11.6-14.8) H Platelet Count 374 K/UL (150-450) Mean Platelet Volume 5.5 FL (6.5-10.1) L Neutrophils (%) (Auto) % (45.0-75.0) Lymphocytes (%) (Auto) % (20.0-45.0) Monocytes (%) (Auto) % (1.0-10.0) Eosinophils (%) (Auto) % (0.0-3.0) Basophils (%) (Auto) % (0.0-2.0) Differential Total Cells Counted 100 Neutrophils % (Manual) 78 % (45-75) H Lymphocytes % (Manual) 10 % (20-45) L Monocytes % (Manual) 11 % (1-10) H Eosinophils % (Manual) 1 % (0-3) Basophils % (Manual) 0 % (0-2) Band Neutrophils 0 % (0-8) Platelet Estimate Adequate Platelet Morphology Normal Hypochromasia 1+ Anisocytosis 1+ Sodium Level 145 MMOL/L (136-145) Potassium Level 3.2 MMOL/L (3.5-5.1) L Chloride Level 108 MMOL/L (98-107) H Carbon Dioxide Level 33 MMOL/L (21-32) H Anion Gap 4 mmol/L (5-15) L Blood Urea Nitrogen 36 mg/dL (7-18) H Creatinine 3.0 MG/DL (0.55-1.30) H Estimat Glomerular Filtration Rate 25.9 mL/min (>60) Glucose Level 107 MG/DL (74-106) H Calcium Level 8.2 MG/DL (8.5-10.1) L Phosphorus Level 3.1 MG/DL (2.5-4.9) Magnesium Level 1.7 MG/DL (1.8-2.4) L Total Bilirubin 0.5 MG/DL (0.2-1.0) Aspartate Amino Transf (AST/SGOT) 22 U/L (15-37) Alanine Aminotransferase (ALT/SGPT) 23 U/L (12-78) Alkaline Phosphatase 154 U/L (46-116) H C-Reactive Protein, Quantitative 13.3 mg/dL (0.00-0.90) H Pro-B-Type Natriuretic Peptide 1170 pg/mL (0-125) H Total Protein 6.5 G/DL (6.4-8.2) Albumin 1.5 G/DL (3.4-5.0) L Globulin 5.0 g/dL Albumin/Globulin Ratio 0.3 (1.0-2.7) L CHRISTEN LOVE Nov 12, 2017 19:57
[2017-11-12 20:00] VITALS: BP 144/90
[2017-11-12] MEDS: Dyna-Hex 2% Top Sol 2oz TOPIC SCH (20:10)
--- NOTE | 2017-11-12 21:41 | Infectious Diseases Prog Note ---
Assessment/Plan Assessment/Plan A C Diff +ve, diarrhea no sig improvement Fever, SP Leukocytosis, improving -CXR: 10/30 : Slightly increased hazy opacity left lung base and obscuration of left hemidiaphragm, may reflect increased infiltrates and/or pleural fluid E.coli UTI w/ bacteremia ; s/p Rx -REnal US: Limited exam. No definite hydronephrosis. Empty bladder, containing a Cervantes catheter. Suspicion for Flu despite rapid test (+URI symptoms, sick contacts); s/p Rx ? Pneum 10/15 CXR : Increased left pleural fluid and and left basilar atelectasis. Ro Cholecystitis CT and US : Gallbladder wall edema nonspecific in nature Acute hypoxic resp failure- intubated (10/20) , SP Trach 10/23 12/18 KUB : Distended small bowel. Ileus versus obstruction. SP cardiac arrest 10/26 SP hemorrhagic shock (drop Hgb 10.8 to 5)- 10/12 GIB- transaminitis due to shock improving JULIA on HD , HD cath Lactic acidosis, resolved UGI bleed / Anemia SP EGD 10/18 and 10/26 Path: H Pylori Neg CVA with hemiplegia HTN cataract dysphagia Hx of fall CAD/[place] CVA/TIA dementia seizure disorder Plan: -Continue Flagyl and oral Vanco d# , add Tygacil d# 2 ( Coverage of C Diff and probable Cholecystitis ) 10/30 SP Meropenem d# 5 - 10/29 SP IV Vanco # 10 - 10/26 SP Zosyn #6 - 10/21 SP Ceftriaxone 2 g qd d# 11 - 10/17 SP empiric Tamiflu #6/5 -10/15 SP IV Vancomcyin #5, Meropenm #3 -2/3 SP Cefepime #3 -Monitor CBC/BMP, temperatures; -aspiration precautions - vent Support - HIDA further eval of GB Subjective Allergies: Uncoded Allergies: TAPE (Adverse Reaction, Mild, 11/09/17) REDNESS AT TAPE SITE WHEN APPLIED TAPE Subjective afebrile Objective Vital Signs Last 24 Hour Vital Signs Date Time Temp Pulse Resp B/P (MAP) Pulse Ox O2 Delivery O2 Flow Rate FiO2 11/12/17 21:28 110 135/90 11/12/17 21:23 110 135/90 11/12/17 20:39 103 27 80 11/12/17 20:30 103 23 99 Mechanical Ventilator 80 11/12/17 20:21 112 24 96 Mechanical Ventilator 80 11/12/17 20:12 108 26 80 11/12/17 17:25 80 11/12/17 17:17 102 29 60 11/12/17 16:00 97.8 98 20 145/89 93 Mechanical Ventilator 40 97.8 98 11/12/17 16:00 60 11/12/17 16:00 100 11/12/17 15:21 112 32 100 11/12/17 14:00 98 145/89 11/12/17 13:42 Mechanical Ventilator 11/12/17 13:42 Mechanical Ventilator 11/12/17 13:09 98.6 11/12/17 13:06 108 25 40 11/12/17 12:45 98.6 96 20 126/79 93 Mechanical Ventilator 40 98.6 11/12/17 12:39 98.8 11/12/17 12:00 60 11/12/17 11:23 110 25 40 11/12/17 09:40 111 149/77 11/12/17 09:33 111 149/77 11/12/17 09:24 107 22 40 11/12/17 08:00 60 11/12/17 08:00 108 11/12/17 08:00 98.8 111 22 149/77 95 Mechanical Ventilator 60 98.8 11/12/17 07:45 106 22 98 Mechanical Ventilator 40 11/12/17 07:35 110 20 98 Mechanical Ventilator 40 11/12/17 07:29 110 20 40 11/12/17 05:16 102 22 100 11/12/17 04:00 60 11/12/17 04:00 98.9 106 22 130/79 95 Mechanical Ventilator 60 98.9 11/12/17 04:00 102 11/12/17 03:38 101 22 60 11/12/17 01:11 105 22 100 11/12/17 00:00 103 11/12/17 00:00 100 11/12/17 00:00 98.3 105 22 124/88 96 Mechanical Ventilator 100 98.3 11/11/17 23:13 113 22 40 Height (Feet): 5 Height (Inches): 6.00 Weight (Pounds): 216 HEENT: atraumatic Respiratory/Chest: no accessory muscle use Cardiovascular: regular rhythm Abdomen: no organomegaly Laboratory Tests Test 11/12/17 05:50 White Blood Count 24.7 K/UL (4.8-10.8) *H Red Blood Count 2.59 M/UL (4.70-6.10) L Hemoglobin 7.7 G/DL (14.2-18.0) L Hematocrit 23.1 % (42.0-52.0) L Mean Corpuscular Volume 89 FL (80-99) Mean Corpuscular Hemoglobin 29.8 PG (27.0-31.0) Mean Corpuscular Hemoglobin Concent 33.5 G/DL (32.0-36.0) Red Cell Distribution Width 16.2 % (11.6-14.8) H Platelet Count 374 K/UL (150-450) Mean Platelet Volume 5.5 FL (6.5-10.1) L Neutrophils (%) (Auto) % (45.0-75.0) Lymphocytes (%) (Auto) % (20.0-45.0) Monocytes (%) (Auto) % (1.0-10.0) Eosinophils (%) (Auto) % (0.0-3.0) Basophils (%) (Auto) % (0.0-2.0) Differential Total Cells Counted 100 Neutrophils % (Manual) 78 % (45-75) H Lymphocytes % (Manual) 10 % (20-45) L Monocytes % (Manual) 11 % (1-10) H Eosinophils % (Manual) 1 % (0-3) Basophils % (Manual) 0 % (0-2) Band Neutrophils 0 % (0-8) Platelet Estimate Adequate Platelet Morphology Normal Hypochromasia 1+ Anisocytosis 1+ Sodium Level 145 MMOL/L (136-145) Potassium Level 3.2 MMOL/L (3.5-5.1) L Chloride Level 108 MMOL/L (98-107) H Carbon Dioxide Level 33 MMOL/L (21-32) H Anion Gap 4 mmol/L (5-15) L Blood Urea Nitrogen 36 mg/dL (7-18) H Creatinine 3.0 MG/DL (0.55-1.30) H Estimat Glomerular Filtration Rate 25.9 mL/min (>60) Glucose Level 107 MG/DL (74-106) H Calcium Level 8.2 MG/DL (8.5-10.1) L Phosphorus Level 3.1 MG/DL (2.5-4.9) Magnesium Level 1.7 MG/DL (1.8-2.4) L Total Bilirubin 0.5 MG/DL (0.2-1.0) Aspartate Amino Transf (AST/SGOT) 22 U/L (15-37) Alanine Aminotransferase (ALT/SGPT) 23 U/L (12-78) Alkaline Phosphatase 154 U/L (46-116) H C-Reactive Protein, Quantitative 13.3 mg/dL (0.00-0.90) H Pro-B-Type Natriuretic Peptide 1170 pg/mL (0-125) H Total Protein 6.5 G/DL (6.4-8.2) Albumin 1.5 G/DL (3.4-5.0) L Globulin 5.0 g/dL Albumin/Globulin Ratio 0.3 (1.0-2.7) L Current Medications Medications (Trade) Dose Ordered Sig/Olvin Route PRN Reason Start Time Stop Time Status Last Admin Dose Admin Acetaminophen (Tylenol) 650 mg Q4H PRN RECTAL Mild Pain (Pain Scale 1-3) 10/30/17 21:00 11/20/17 20:59 Albuterol/ Ipratropium (Albuterol/ Ipratropium) 3 ml Q4HRT PRN HHN sob 11/10/17 14:45 11/15/17 23:59 Chlorhexidine Gluconate (Pamela-Hex 2%) 1 applic DAILY@2000 TOPIC 10/31/17 22:00 11/23/17 21:59 11/12/17 20:10 Diltiazem HCl (Cardizem) 30 mg EVERY 8 HOURS GT 11/12/17 14:00 12/12/17 13:59 11/12/17 21:28 Famotidine (Pepcid I.v.) 20 mg Q24HRS IVP 10/30/17 21:30 11/29/17 21:29 11/12/17 21:24 Lactobacillus Acidophilus (Culturelle) 1 tab THREE TIMES A DAY GT 11/03/17 13:00 12/03/17 12:59 11/12/17 18:23 Levalbuterol HCl (Xopenex) 1.25 mg TIDRT HHN 11/10/17 19:00 11/15/17 18:59 11/12/17 20:21 Lorazepam (Ativan 2mg/ml 1ml) 2 mg Q4H PRN IV For Anxiety 11/10/17 16:45 11/17/17 23:59 11/10/17 18:42 Metoclopramide HCl (Reglan) 5 mg Q6H PRN GT Irrectractable Nausea/Vomiting 10/30/17 21:00 11/29/17 20:59 11/12/17 09:32 Metoprolol Tartrate (Lopressor) 25 mg Q12HR GT 10/30/17 21:30 11/29/17 21:29 11/12/17 21:23 Metronidazole 100 ml @ 100 mls/hr Q8HR IV 10/30/17 22:00 11/16/17 21:59 11/12/17 16:47 Nitroglycerin (Ntg) 0.4 mg Q5MIN X 3 DOSES PRN SL Prn Chest Pain 10/30/17 20:45 11/14/17 17:09 Ondansetron HCl (Zofran) 4 mg Q6H PRN IVP Nausea & Vomiting 10/30/17 21:00 11/29/17 20:59 Tigecycline 50 mg/ Dextrose 110 ml @ 220 mls/hr Q12HR@0500,1700 IVPB 11/12/17 05:00 11/19/17 04:59 11/12/17 18:23 Vancomycin HCl (Vancomycin) 125 mg FOUR TIMES A DAY GT 11/11/17 21:00 11/18/17 20:59 11/12/17 21:23 FAUSTINO AGARWAL M.D. Nov 12, 2017 21:41
[2017-11-12] MEDS: Albuterol/Ipratropium 3ml neb HHN PRN (22:51)
[2017-11-13] VITALS: BP 144/90
[2017-11-13 04:00] VITALS: BP 139/90
[2017-11-13] MEDS: Tigecycline 50 MG in D5W 110 ML IVPB SCH ×2 (05:25→17:05)
[2017-11-13] MEDS: dilTIAZem HCl 30mg tab GT SCH ×2 (06:18→17:01)
[2017-11-13 06:22] LABS: HEMATOCRIT 24.9 % (42.0-52.0); HEMOGLOBIN 8.3 G/DL (14.2-18.0); MEAN CORPUSCULAR VOLUME 90 FL (80-99); PLATELET COUNT 387 K/UL (150-450); RED BLOOD COUNT 2.76 M/UL (4.70-6.10); RED CELL DISTRIBUTION WIDTH 15.2 % (11.6-14.8); WHITE BLOOD COUNT 21.1 K/UL (4.8-10.8)
[2017-11-13 06:43] LABS: ALANINE AMINOTRANSFERASE 25 U/L (12-78); ALBUMIN 1.9 G/DL (3.4-5.0); ALBUMIN/GLOBULIN RATIO 0.4 (1.0-2.7); ALKALINE PHOSPHATASE 132 U/L (46-116); ANION GAP 6 mmol/L (5-15); ASPARTATE AMINO TRANSFERASE 20 U/L (15-37); BILIRUBIN,TOTAL 0.5 MG/DL (0.2-1.0); BLOOD UREA NITROGEN 36 mg/dL (7-18); CALCIUM 8.3 MG/DL (8.5-10.1); CARBON DIOXIDE 31 MMOL/L (21-32); CHLORIDE 111 MMOL/L (98-107); CREATININE 2.4 MG/DL (0.55-1.30); PHOSPHORUS 3.3 MG/DL (2.5-4.9); POTASSIUM 3.3 MMOL/L (3.5-5.1); SODIUM 147 MMOL/L (136-145)
--- NOTE | 2017-11-13 07:39 | Pulmonolgy Critical Care Note ---
Critical Care - Asmt/Plan Problems: (1) Acute respiratory failure (2) Collapse of right lung (3) Acute renal failure (ARF) (4) Pneumonia (5) Sepsis (6) Epileptic seizure, generalized (7) Feeding by G-tube (8) C. 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 - Objective Last 24 Hour Vital Signs Date Time Temp Pulse Resp B/P (MAP) Pulse Ox O2 Delivery O2 Flow Rate FiO2 11/13/17 07:05 98 20 100 11/13/17 06:18 107 145/90 11/13/17 04:35 97 20 100 11/13/17 04:00 100 11/13/17 04:00 99 11/13/17 04:00 98.2 107 20 139/90 94 Mechanical Ventilator 100 98.2 11/13/17 02:33 96 24 100 11/13/17 00:35 108 34 100 11/13/17 00:00 98.8 94 20 144/90 96 Mechanical Ventilator 100 98.8 11/13/17 00:00 93 11/13/17 00:00 100 11/12/17 23:02 102 18 96 Mechanical Ventilator 100 11/12/17 22:52 99 18 Mechanical Ventilator 100 11/12/17 22:52 99 18 93 Mechanical Ventilator 100 11/12/17 22:44 100 11/12/17 22:36 87 18 70 11/12/17 21:28 110 135/90 11/12/17 21:23 110 135/90 11/12/17 20:39 103 27 80 11/12/17 20:30 103 23 99 Mechanical Ventilator 80 11/12/17 20:21 112 24 96 Mechanical Ventilator 80 11/12/17 20:12 108 26 80 11/12/17 20:00 80 11/12/17 20:00 100 11/12/17 20:00 97.7 103 20 144/90 96 Mechanical Ventilator 80 97.7 11/12/17 17:25 80 11/12/17 17:17 102 29 60 11/12/17 16:00 97.8 98 20 145/89 93 Mechanical Ventilator 40 97.8 98 11/12/17 16:00 60 11/12/17 16:00 100 11/12/17 15:21 112 32 100 11/12/17 14:00 98 145/89 11/12/17 13:42 Mechanical Ventilator 11/12/17 13:42 Mechanical Ventilator 11/12/17 13:09 98.6 11/12/17 13:06 108 25 40 11/12/17 12:45 98.6 96 20 126/79 93 Mechanical Ventilator 40 98.6 11/12/17 12:39 98.8 11/12/17 12:00 60 11/12/17 11:23 110 25 40 11/12/17 09:40 111 149/77 11/12/17 09:33 111 149/77 11/12/17 09:24 107 22 40 11/12/17 08:00 60 11/12/17 08:00 108 11/12/17 08:00 98.8 111 22 149/77 95 Mechanical Ventilator 60 98.8 11/12/17 07:45 106 22 98 Mechanical Ventilator 40 Status: awake Condition: critical HEENT: atraumatic Lungs: clear Heart: HR/BP stable, HR/BP unstable Abdomen: soft, active bowel sounds, feeding tube Extremities: edema Decubiti: location, stage Critical Care - Subjective ROS Limited/Unobtainable: No Interval Events: open eyes, looks comfortable Condition: critical EKG Rhythm: Sinus Rhythm FI02: 100 Vent Support Breath Rate: 18 Vent Support Mode: AC Vent Tidal Volume: 550 Sputum Amount: Large PEEP: 7.0 PIP: 27 Secretions: small Tube Feeding Amount: 45 I&O: Intake and Output 11/12/17 11/13/17 19:00 07:00 Intake Total 535 ml 710 ml Output Total 1020 ml 1400 ml Balance -485 ml -690 ml IV Total 310 ml 100 ml Tube Feeding 225 ml 360 ml Blood Product 250 ml Output Urine Total 800 ml 1400 ml Stool Total 220 ml # Bowel Movements 50 CXR: no change, right lung still open ET-Tube: 8.0 ET Position: 24 Labs: Laboratory Tests Test 3/6/18 04:00 White Blood Count 21.1 K/UL (4.8-10.8) H Red Blood Count 2.76 M/UL (4.70-6.10) L Hemoglobin 8.3 G/DL (14.2-18.0) L Hematocrit 24.9 % (42.0-52.0) L Mean Corpuscular Volume 90 FL (80-99) Mean Corpuscular Hemoglobin 29.9 PG (27.0-31.0) Mean Corpuscular Hemoglobin Concent 33.2 G/DL (32.0-36.0) Red Cell Distribution Width 15.2 % (11.6-14.8) H Platelet Count 387 K/UL (150-450) Mean Platelet Volume 5.3 FL (6.5-10.1) L Neutrophils (%) (Auto) % (45.0-75.0) Lymphocytes (%) (Auto) % (20.0-45.0) Monocytes (%) (Auto) % (1.0-10.0) Eosinophils (%) (Auto) % (0.0-3.0) Basophils (%) (Auto) % (0.0-2.0) Neutrophils % (Manual) Pending Lymphocytes % (Manual) Pending Platelet Estimate Pending Platelet Morphology Pending Sodium Level 147 MMOL/L (136-145) H Potassium Level 3.3 MMOL/L (3.5-5.1) L Chloride Level 111 MMOL/L (98-107) H Carbon Dioxide Level 31 MMOL/L (21-32) Anion Gap 6 mmol/L (5-15) Blood Urea Nitrogen 36 mg/dL (7-18) H Creatinine 2.4 MG/DL (0.55-1.30) H Estimat Glomerular Filtration Rate 33.6 mL/min (>60) Glucose Level 90 MG/DL (74-106) Uric Acid 6.1 MG/DL (2.6-7.2) Calcium Level 8.3 MG/DL (8.5-10.1) L Phosphorus Level 3.3 MG/DL (2.5-4.9) Magnesium Level 1.6 MG/DL (1.8-2.4) L Total Bilirubin 0.5 MG/DL (0.2-1.0) Aspartate Amino Transf (AST/SGOT) 20 U/L (15-37) Alanine Aminotransferase (ALT/SGPT) 25 U/L (12-78) Alkaline Phosphatase 132 U/L (46-116) H Pro-B-Type Natriuretic Peptide 1838 pg/mL (0-125) H Total Protein 6.4 G/DL (6.4-8.2) Albumin 1.9 G/DL (3.4-5.0) L Globulin 4.5 g/dL Albumin/Globulin Ratio 0.4 (1.0-2.7) L EDDIE COLES Nov 13, 2017 07:39
[2017-11-13 08:00] VITALS: BP 155/100
[2017-11-13] MEDS: Levalbuterol Inh UD 1.25mg/0.5ml HHN SCH ×3 (09:14→19:27)
[2017-11-13] MEDS: Vancomycin oral 125mg/2.5ml GT SCH ×4 (09:24→20:55)
[2017-11-13] MEDS: Metoprolol 25mg tab GT SCH (09:24)
[2017-11-13] MEDS: Lactobacillus-GG tablet GT SCH ×3 (09:24→17:01)
--- NOTE | 2017-11-13 10:16 | Infectious Diseases Prog Note ---
Assessment/Plan Assessment/Plan A C Diff +ve, diarrhea no sig improvement Fever, SP Leukocytosis, improving -CXR: 10/30 : Slightly increased hazy opacity left lung base and obscuration of left hemidiaphragm, may reflect increased infiltrates and/or pleural fluid E.coli UTI w/ bacteremia ; s/p Rx -REnal US: Limited exam. No definite hydronephrosis. Empty bladder, containing a Cervantes catheter. Suspicion for Flu despite rapid test (+URI symptoms, sick contacts); s/p Rx ? Pneum 10/15 CXR : Increased left pleural fluid and and left basilar atelectasis. Ro Cholecystitis CT and US : Gallbladder wall edema nonspecific in nature - HIDA aborted midway, pt become unstable Acute hypoxic resp failure- intubated (10/20) , SP Trach 10/23 12/18 KUB : Distended small bowel. Ileus versus obstruction. SP cardiac arrest 10/26 SP hemorrhagic shock (drop Hgb 10.8 to 5)- 10/12 GIB- transaminitis due to shock improving JULIA on HD , HD cath Lactic acidosis, resolved UGI bleed / Anemia SP EGD 10/18 and 10/26 Path: H Pylori Neg CVA with hemiplegia HTN cataract dysphagia Hx of fall CAD/[place] CVA/TIA dementia seizure disorder Plan: -Continue Flagyl and oral Vanco d# , add Tygacil d# 3 ( Coverage of C Diff and probable Cholecystitis ) 10/30 SP Meropenem d# 5 - 10/29 SP IV Vanco # 10 - 10/26 SP Zosyn #6 - 10/21 SP Ceftriaxone 2 g qd d# 11 - 10/17 SP empiric Tamiflu #6/5 -5 SP IV Vancomcyin #5, Meropenm #3 -2/3 SP Cefepime #3 -Monitor CBC/BMP, temperatures; -aspiration precautions - vent Support - repeat Cx if WBG does not improve Subjective Allergies: Uncoded Allergies: TAPE (Adverse Reaction, Mild, 11/09/17) REDNESS AT TAPE SITE WHEN APPLIED TAPE Subjective afebrile Objective Vital Signs Last 24 Hour Vital Signs Date Time Temp Pulse Resp B/P (MAP) Pulse Ox O2 Delivery O2 Flow Rate FiO2 11/13/17 09:24 98 155/100 11/13/17 09:15 98 20 100 11/13/17 09:14 104 24 100 Mechanical Ventilator 100 11/13/17 08:00 100 11/13/17 08:00 96.6 103 21 155/100 92 Mechanical Ventilator 100 96.6 11/13/17 07:39 92 11/13/17 07:05 98 20 100 11/13/17 06:18 107 145/90 11/13/17 04:35 97 20 100 11/13/17 04:00 100 11/13/17 04:00 99 11/13/17 04:00 98.2 107 20 139/90 94 Mechanical Ventilator 100 98.2 11/13/17 02:33 96 24 100 11/13/17 00:35 108 34 100 11/13/17 00:00 98.8 94 20 144/90 96 Mechanical Ventilator 100 98.8 11/13/17 00:00 93 11/13/17 00:00 100 11/12/17 23:02 102 18 96 Mechanical Ventilator 100 11/12/17 22:52 99 18 Mechanical Ventilator 100 11/12/17 22:52 99 18 93 Mechanical Ventilator 100 11/12/17 22:44 100 11/12/17 22:36 87 18 70 11/12/17 21:28 110 135/90 11/12/17 21:23 110 135/90 11/12/17 20:39 103 27 80 11/12/17 20:30 103 23 99 Mechanical Ventilator 80 11/12/17 20:21 112 24 96 Mechanical Ventilator 80 11/12/17 20:12 108 26 80 11/12/17 20:00 80 11/12/17 20:00 100 11/12/17 20:00 97.7 103 20 144/90 96 Mechanical Ventilator 80 97.7 11/12/17 17:25 80 11/12/17 17:17 102 29 60 11/12/17 16:00 97.8 98 20 145/89 93 Mechanical Ventilator 40 97.8 98 11/12/17 16:00 60 11/12/17 16:00 100 11/12/17 15:21 112 32 100 11/12/17 14:00 98 145/89 11/12/17 13:42 Mechanical Ventilator 11/12/17 13:42 Mechanical Ventilator 11/12/17 13:09 98.6 11/12/17 13:06 108 25 40 11/12/17 12:45 98.6 96 20 126/79 93 Mechanical Ventilator 40 98.6 11/12/17 12:39 98.8 11/12/17 12:00 60 11/12/17 11:23 110 25 40 Height (Feet): 5 Height (Inches): 6.00 Weight (Pounds): 220 Laboratory Tests Test 11/13/17 04:00 White Blood Count 21.1 K/UL (4.8-10.8) H Red Blood Count 2.76 M/UL (4.70-6.10) L Hemoglobin 8.3 G/DL (14.2-18.0) L Hematocrit 24.9 % (42.0-52.0) L Mean Corpuscular Volume 90 FL (80-99) Mean Corpuscular Hemoglobin 29.9 PG (27.0-31.0) Mean Corpuscular Hemoglobin Concent 33.2 G/DL (32.0-36.0) Red Cell Distribution Width 15.2 % (11.6-14.8) H Platelet Count 387 K/UL (150-450) Mean Platelet Volume 5.3 FL (6.5-10.1) L Neutrophils (%) (Auto) % (45.0-75.0) Lymphocytes (%) (Auto) % (20.0-45.0) Monocytes (%) (Auto) % (1.0-10.0) Eosinophils (%) (Auto) % (0.0-3.0) Basophils (%) (Auto) % (0.0-2.0) Differential Total Cells Counted 100 Neutrophils % (Manual) 86 % (45-75) H Lymphocytes % (Manual) 7 % (20-45) L Monocytes % (Manual) 6 % (1-10) Eosinophils % (Manual) 1 % (0-3) Basophils % (Manual) 0 % (0-2) Band Neutrophils 0 % (0-8) Platelet Estimate Adequate Platelet Morphology Normal Hypochromasia 2+ Anisocytosis 1+ Spherocytes 1+ Sodium Level 147 MMOL/L (136-145) H Potassium Level 3.3 MMOL/L (3.5-5.1) L Chloride Level 111 MMOL/L (98-107) H Carbon Dioxide Level 31 MMOL/L (21-32) Anion Gap 6 mmol/L (5-15) Blood Urea Nitrogen 36 mg/dL (7-18) H Creatinine 2.4 MG/DL (0.55-1.30) H Estimat Glomerular Filtration Rate 33.6 mL/min (>60) Glucose Level 90 MG/DL (74-106) Uric Acid 6.1 MG/DL (2.6-7.2) Calcium Level 8.3 MG/DL (8.5-10.1) L Phosphorus Level 3.3 MG/DL (2.5-4.9) Magnesium Level 1.6 MG/DL (1.8-2.4) L Total Bilirubin 0.5 MG/DL (0.2-1.0) Aspartate Amino Transf (AST/SGOT) 20 U/L (15-37) Alanine Aminotransferase (ALT/SGPT) 25 U/L (12-78) Alkaline Phosphatase 132 U/L (46-116) H Pro-B-Type Natriuretic Peptide 1838 pg/mL (0-125) H Total Protein 6.4 G/DL (6.4-8.2) Albumin 1.9 G/DL (3.4-5.0) L Globulin 4.5 g/dL Albumin/Globulin Ratio 0.4 (1.0-2.7) L Current Medications Medications (Trade) Dose Ordered Sig/Olvin Route PRN Reason Start Time Stop Time Status Last Admin Dose Admin Acetaminophen (Tylenol) 650 mg Q4H PRN RECTAL Mild Pain (Pain Scale 1-3) 10/30/17 21:00 11/20/17 20:59 Albuterol/ Ipratropium (Albuterol/ Ipratropium) 3 ml Q4HRT PRN HHN sob 11/10/17 14:45 11/15/17 23:59 11/12/17 22:51 Chlorhexidine Gluconate (Pamela-Hex 2%) 1 applic DAILY@1999 TOPIC 10/31/17 22:00 11/23/17 21:59 11/12/17 20:10 Diltiazem HCl (Cardizem) 30 mg EVERY 8 HOURS GT 11/12/17 14:00 12/12/17 13:59 11/13/17 06:18 Famotidine (Pepcid I.v.) 20 mg Q24HRS IVP 10/30/17 21:30 11/29/17 21:29 11/12/17 21:24 Lactobacillus Acidophilus (Culturelle) 1 tab THREE TIMES A DAY GT 11/03/17 13:00 12/03/17 12:59 11/13/17 09:24 Levalbuterol HCl (Xopenex) 1.25 mg TIDRT HHN 11/10/17 19:00 11/15/17 18:59 11/13/17 09:14 Lorazepam (Ativan 2mg/ml 1ml) 2 mg Q4H PRN IV For Anxiety 11/10/17 16:45 11/17/17 23:59 11/10/17 18:42 Metoclopramide HCl (Reglan) 5 mg Q6H PRN GT Irrectractable Nausea/Vomiting 10/30/17 21:00 11/29/17 20:59 11/12/17 09:32 Metoprolol Tartrate (Lopressor) 25 mg Q12HR GT 10/30/17 21:30 11/29/17 21:29 11/13/17 09:24 Metronidazole 100 ml @ 100 mls/hr Q8HR IV 10/30/17 22:00 11/16/17 21:59 11/13/17 06:18 Nitroglycerin (Ntg) 0.4 mg Q5MIN X 3 DOSES PRN SL Prn Chest Pain 10/30/17 20:45 11/14/17 17:09 Ondansetron HCl (Zofran) 4 mg Q6H PRN IVP Nausea & Vomiting 10/30/17 21:00 11/29/17 20:59 Tigecycline 50 mg/ Dextrose 110 ml @ 220 mls/hr Q12HR@0500,1700 IVPB 11/12/17 05:00 11/19/17 04:59 11/13/17 05:25 Vancomycin HCl (Vancomycin) 125 mg FOUR TIMES A DAY GT 11/11/17 21:00 11/18/17 20:59 11/13/17 09:24 FAUSTINO AGARWAL M.D. Nov 13, 2017 10:16
[2017-11-13 12:00] VITALS: BP_SYST 149; BP_SYST 155; BP_DIAS 100; BP_DIAS 89
--- NOTE | 2017-11-13 13:40 | Nephrology Progress Note ---
Assessment/Plan Problem List: (1) Acute renal failure (ARF) (2) Respiratory failure (3) Shock liver Assessment Cr lowering JULIA , due to Shock , Hemorrhagic / Septic / C dif colitis worsenning anemia Off Pressors- Shock liver resolving High Troponin: CA Bradycardic - Vfib cardiac arrest 10/26 likely 2ry to hemorrhagic shock (drop Hgb 10.8 to 5) - GIB- Fever, ongoing Leukocytosis, worsening after code E.coli UTI w/ bacteremia Acute hypoxic resp failure- s/p Trach . Plan Plan: dialyse 11/10 next ? ? does not need any more- K supplement Albumin bollous DC Phos binders change norvasc to cardiazem has new cath right chest K IV as needed right groin cath removed being transfused add Renvela and Lactobacillus BP stablized start GT feeding HD trial as needed- on C dif treatment protocol monitor urine out put and Renal parameters discussed with RN Subjective ROS Limited/Unobtainable: Yes Objective Objective Last 24 Hour Vital Signs Date Time Temp Pulse Resp B/P (MAP) Pulse Ox O2 Delivery O2 Flow Rate FiO2 11/13/17 13:24 124 29 100 11/13/17 13:23 129 24 86 Mechanical Ventilator 100 11/13/17 13:22 100 11/13/17 12:00 97.0 110 20 149/89 98 Mechanical Ventilator 100 97.0 11/13/17 12:00 100 11/13/17 11:51 109 11/13/17 11:25 108 22 100 11/13/17 09:24 98 155/100 11/13/17 09:15 98 20 100 11/13/17 09:14 104 24 100 Mechanical Ventilator 100 11/13/17 08:00 100 11/13/17 08:00 96.6 103 21 155/100 92 Mechanical Ventilator 100 96.6 11/13/17 07:39 92 11/13/17 07:05 98 20 100 11/13/17 06:18 107 145/90 11/13/17 04:35 97 20 100 11/13/17 04:00 100 11/13/17 04:00 99 11/13/17 04:00 98.2 107 20 139/90 94 Mechanical Ventilator 100 98.2 11/13/17 02:33 96 24 100 11/13/17 00:35 108 34 100 11/13/17 00:00 98.8 94 20 144/90 96 Mechanical Ventilator 100 98.8 11/13/17 00:00 93 11/13/17 00:00 100 11/12/17 23:02 102 18 96 Mechanical Ventilator 100 11/12/17 22:52 99 18 Mechanical Ventilator 100 11/12/17 22:52 99 18 93 Mechanical Ventilator 100 11/12/17 22:44 100 11/12/17 22:36 87 18 70 11/12/17 21:28 110 135/90 11/12/17 21:23 110 135/90 11/12/17 20:39 103 27 80 11/12/17 20:30 103 23 99 Mechanical Ventilator 80 11/12/17 20:21 112 24 96 Mechanical Ventilator 80 11/12/17 20:12 108 26 80 11/12/17 20:00 80 11/12/17 20:00 100 11/12/17 20:00 97.7 103 20 144/90 96 Mechanical Ventilator 80 97.7 11/12/17 17:25 80 11/12/17 17:17 102 29 60 11/12/17 16:00 97.8 98 20 145/89 93 Mechanical Ventilator 40 97.8 98 11/12/17 16:00 60 11/12/17 16:00 100 11/12/17 15:21 112 32 100 11/12/17 14:00 98 145/89 11/12/17 13:42 Mechanical Ventilator 11/12/17 13:42 Mechanical Ventilator Intake and Output 11/12/17 11/13/17 19:00 07:00 Intake Total 535 ml 820 ml Output Total 1020 ml 1400 ml Balance -485 ml -580 ml IV Total 310 ml 210 ml Tube Feeding 225 ml 360 ml Blood Product 250 ml Output Urine Total 800 ml 1400 ml Stool Total 220 ml # Bowel Movements 50 Laboratory Tests 11/13/17 04:00: White Blood Count 21.1H, Red Blood Count 2.76L, Hemoglobin 8.3L, Hematocrit 24.9L, Mean Corpuscular Volume 90, Mean Corpuscular Hemoglobin 29.9, Mean Corpuscular Hemoglobin Concent 33.2, Red Cell Distribution Width 15.2H, Platelet Count 387, Mean Platelet Volume 5.3L, Neutrophils (%) (Auto) , Lymphocytes (%) (Auto) , Monocytes (%) (Auto) , Eosinophils (%) (Auto) , Basophils (%) (Auto) , Differential Total Cells Counted 100, Neutrophils % ( Manual) 86H, Lymphocytes % (Manual) 7L, Monocytes % (Manual) 6, Eosinophils % ( Manual) 1, Basophils % (Manual) 0, Band Neutrophils 0, Platelet Estimate Adequate, Platelet Morphology Normal, Hypochromasia 2+, Anisocytosis 1+, Spherocytes 1+, Sodium Level 147H, Potassium Level 3.3L, Chloride Level 111H, Carbon Dioxide Level 31, Anion Gap 6, Blood Urea Nitrogen 36H, Creatinine 2.4H, Estimat Glomerular Filtration Rate 33.6, Glucose Level 90, Uric Acid 6.1, Calcium Level 8.3L, Phosphorus Level 3.3, Magnesium Level 1.6L, Total Bilirubin 0.5, Aspartate Amino Transf (AST/SGOT) 20, Alanine Aminotransferase (ALT/SGPT) 25, Alkaline Phosphatase 132H, Pro-B-Type Natriuretic Peptide 1838H, Total Protein 6.4, Albumin 1.9L, Globulin 4.5, Albumin/Globulin Ratio 0.4L Height (Feet): 5 Height (Inches): 6.00 Weight (Pounds): 220 Objective no other change YVES SINHA Nov 13, 2017 13:40
--- NOTE | 2017-11-13 14:08 | Diagnostic Imaging Report ---
Indication: Abdominal Pain Technique: 5.5 mCi of technetium 99 m-Choletec was injected intravenously. Planar imaging of the abdomen was then performed every 5 minutes up to 30 minutes and every 10 minutes up to one hour. Oblique views were also obtained. Findings: There is prompt uptake within the liver with good washout of radiotracer from the liver on subsequent imaging. There is excretion into the biliary ducts. Gallbladder activity is present in a timely fashion indicating patency of the cystic duct. At 60 minutes, no bowel activity was demonstrated. Delayed activity was planned but could not be obtained as the patient became unstable. The status of the CBD is unknown. IMPRESSION: Patent cystic duct. Patency of the CBD not confirmed on this examination. Delayed imaging could not be performed as the patient was unstable.
--- NOTE | 2017-11-13 14:14 | Cardiology Progress Note ---
Assessment/Plan Assessment/Plan 1. Cardiopulmonary arrest on three separate occasions. 2. Massive gastrointestinal bleed. 3. Encephalopathy. 4. Abnormal liver function tests, likely shock liver. 5. Acute renal failure. 6. Anemia. 7. NSTEMI type2 related to cardiopulmonary resuscitation and renal insufficiency. 8. Chronic respiratory failure. 9. History of cerebrovascular accident. 10. c diff 11. htn onthe vent dialysis per dr wang tele sinus still bp is stable remain on high lisa oxygen but cxr imporved start on norvasc for bp skip dose before dialysis may need mroe UF hgb low but relatively stable cxr personally reviewed hida scan reprot noted Subjective ROS Limited/Unobtainable: Yes Subjective on the vent Objective Last 24 Hour Vital Signs Date Time Temp Pulse Resp B/P (MAP) Pulse Ox O2 Delivery O2 Flow Rate FiO2 11/13/17 13:24 124 29 100 11/13/17 13:23 129 24 86 Mechanical Ventilator 100 11/13/17 13:22 100 11/13/17 12:00 97.0 110 20 149/89 98 Mechanical Ventilator 100 97.0 11/13/17 12:00 100 11/13/17 11:51 109 11/13/17 11:25 108 22 100 11/13/17 09:24 98 155/100 11/13/17 09:15 98 20 100 11/13/17 09:14 104 24 100 Mechanical Ventilator 100 11/13/17 08:00 100 11/13/17 08:00 96.6 103 21 155/100 92 Mechanical Ventilator 100 96.6 11/13/17 07:39 92 11/13/17 07:05 98 20 100 11/13/17 06:18 107 145/90 11/13/17 04:35 97 20 100 11/13/17 04:00 100 11/13/17 04:00 99 11/13/17 04:00 98.2 107 20 139/90 94 Mechanical Ventilator 100 98.2 11/13/17 02:33 96 24 100 11/13/17 00:35 108 34 100 11/13/17 00:00 98.8 94 20 144/90 96 Mechanical Ventilator 100 98.8 11/13/17 00:00 93 11/13/17 00:00 100 11/12/17 23:02 102 18 96 Mechanical Ventilator 100 11/12/17 22:52 99 18 Mechanical Ventilator 100 11/12/17 22:52 99 18 93 Mechanical Ventilator 100 11/12/17 22:44 100 11/12/17 22:36 87 18 70 11/12/17 21:28 110 135/90 11/12/17 21:23 110 135/90 11/12/17 20:39 103 27 80 11/12/17 20:30 103 23 99 Mechanical Ventilator 80 11/12/17 20:21 112 24 96 Mechanical Ventilator 80 11/12/17 20:12 108 26 80 11/12/17 20:00 80 11/12/17 20:00 100 11/12/17 20:00 97.7 103 20 144/90 96 Mechanical Ventilator 80 97.7 11/12/17 17:25 80 11/12/17 17:17 102 29 60 11/12/17 16:00 97.8 98 20 145/89 93 Mechanical Ventilator 40 97.8 98 11/12/17 16:00 60 11/12/17 16:00 100 11/12/17 15:21 112 32 100 General Appearance: no apparent distress, alert, on vent, patient on isolation Cardiovascular: normal rate Respiratory/Chest: lungs clear Abdomen: normal bowel sounds, non tender Extremities: no swelling Intake and Output 11/12/17 11/13/17 19:00 07:00 Intake Total 535 ml 820 ml Output Total 1020 ml 1400 ml Balance -485 ml -580 ml IV Total 310 ml 210 ml Tube Feeding 225 ml 360 ml Blood Product 250 ml Output Urine Total 800 ml 1400 ml Stool Total 220 ml # Bowel Movements 50 Laboratory Tests Test 11/13/17 04:00 White Blood Count 21.1 K/UL (4.8-10.8) H Red Blood Count 2.76 M/UL (4.70-6.10) L Hemoglobin 8.3 G/DL (14.2-18.0) L Hematocrit 24.9 % (42.0-52.0) L Mean Corpuscular Volume 90 FL (80-99) Mean Corpuscular Hemoglobin 29.9 PG (27.0-31.0) Mean Corpuscular Hemoglobin Concent 33.2 G/DL (32.0-36.0) Red Cell Distribution Width 15.2 % (11.6-14.8) H Platelet Count 387 K/UL (150-450) Mean Platelet Volume 5.3 FL (6.5-10.1) L Neutrophils (%) (Auto) % (45.0-75.0) Lymphocytes (%) (Auto) % (20.0-45.0) Monocytes (%) (Auto) % (1.0-10.0) Eosinophils (%) (Auto) % (0.0-3.0) Basophils (%) (Auto) % (0.0-2.0) Differential Total Cells Counted 100 Neutrophils % (Manual) 86 % (45-75) H Lymphocytes % (Manual) 7 % (20-45) L Monocytes % (Manual) 6 % (1-10) Eosinophils % (Manual) 1 % (0-3) Basophils % (Manual) 0 % (0-2) Band Neutrophils 0 % (0-8) Platelet Estimate Adequate Platelet Morphology Normal Hypochromasia 2+ Anisocytosis 1+ Spherocytes 1+ Sodium Level 147 MMOL/L (136-145) H Potassium Level 3.3 MMOL/L (3.5-5.1) L Chloride Level 111 MMOL/L (98-107) H Carbon Dioxide Level 31 MMOL/L (21-32) Anion Gap 6 mmol/L (5-15) Blood Urea Nitrogen 36 mg/dL (7-18) H Creatinine 2.4 MG/DL (0.55-1.30) H Estimat Glomerular Filtration Rate 33.6 mL/min (>60) Glucose Level 90 MG/DL (74-106) Uric Acid 6.1 MG/DL (2.6-7.2) Calcium Level 8.3 MG/DL (8.5-10.1) L Phosphorus Level 3.3 MG/DL (2.5-4.9) Magnesium Level 1.6 MG/DL (1.8-2.4) L Total Bilirubin 0.5 MG/DL (0.2-1.0) Aspartate Amino Transf (AST/SGOT) 20 U/L (15-37) Alanine Aminotransferase (ALT/SGPT) 25 U/L (12-78) Alkaline Phosphatase 132 U/L (46-116) H C-Reactive Protein, Quantitative 11.9 mg/dL (0.00-0.90) H Pro-B-Type Natriuretic Peptide 1838 pg/mL (0-125) H Total Protein 6.4 G/DL (6.4-8.2) Albumin 1.9 G/DL (3.4-5.0) L Globulin 4.5 g/dL Albumin/Globulin Ratio 0.4 (1.0-2.7) L CHRISTEN LOVE Nov 13, 2017 14:14
[2017-11-13] MEDS ORDERED: Potassium Chloride 40 MEQ in Sodium Chloride 500ML 550 ML IVPB ONE (15:00)
[2017-11-13 15:27] VITALS: BP 134/80
--- NOTE | 2017-11-13 15:57 | GI Progress Note ---
Assessment/Plan Problems: (1) Dysphagia ICD Codes: R13.10 - Dysphagia, unspecified SNOMED: 27504719, 510101166 (2) Dementia ICD Codes: F03.90 - Unspecified dementia without behavioral disturbance SNOMED: 39963115 (3) PEG (percutaneous endoscopic gastrostomy) adjustment/replacement/removal ICD Codes: Z43.1 - Encounter for attention to gastrostomy SNOMED: 133949952, 553223491 (4) CVA, old, hemiparesis ICD Codes: I69.359 - Hemiplegia and hemiparesis following cerebral infarction affecting unspecified side SNOMED: 03003517, 03228632, 1681076545006 Status: unchanged Status Narrative Discussed with Dr. Campos. Assessment/Plan s/p EGD and hemostasis cdiff positive >> dc ppi, H2B BID gastric lavage performed by RN with no evidence of gastric bleed monitor H&H, prn transfusion cont GTFs per RD GT site care BID/prn abx poor prognosis fu labs Subjective Subjective limited Objective Last 24 Hour Vital Signs Date Time Temp Pulse Resp B/P (MAP) Pulse Ox O2 Delivery O2 Flow Rate FiO2 11/13/17 15:27 99.5 101 18 134/80 100 Mechanical Ventilator 100 99.5 11/13/17 14:42 100 11/13/17 14:39 113 29 100 11/13/17 14:37 112 18 100 Mechanical Ventilator 100 11/13/17 13:24 124 29 100 11/13/17 13:23 129 24 86 Mechanical Ventilator 100 11/13/17 12:00 97.0 110 20 149/89 98 Mechanical Ventilator 100 97.0 11/13/17 12:00 100 11/13/17 11:51 109 11/13/17 11:25 108 22 100 11/13/17 09:24 98 155/100 11/13/17 09:15 98 20 100 11/13/17 09:14 104 24 100 Mechanical Ventilator 100 11/13/17 08:00 100 11/13/17 08:00 96.6 103 21 155/100 92 Mechanical Ventilator 100 96.6 11/13/17 07:39 92 11/13/17 07:05 98 20 100 11/13/17 06:18 107 145/90 11/13/17 04:35 97 20 100 11/13/17 04:00 100 11/13/17 04:00 99 11/13/17 04:00 98.2 107 20 139/90 94 Mechanical Ventilator 100 98.2 11/13/17 02:33 96 24 100 11/13/17 00:35 108 34 100 11/13/17 00:00 98.8 94 20 144/90 96 Mechanical Ventilator 100 98.8 11/13/17 00:00 93 11/13/17 00:00 100 11/12/17 23:02 102 18 96 Mechanical Ventilator 100 11/12/17 22:52 99 18 Mechanical Ventilator 100 11/12/17 22:52 99 18 93 Mechanical Ventilator 100 11/12/17 22:44 100 11/12/17 22:36 87 18 70 11/12/17 21:28 110 135/90 11/12/17 21:23 110 135/90 11/12/17 20:39 103 27 80 11/12/17 20:30 103 23 99 Mechanical Ventilator 80 11/12/17 20:21 112 24 96 Mechanical Ventilator 80 11/12/17 20:12 108 26 80 11/12/17 20:00 80 11/12/17 20:00 100 11/12/17 20:00 97.7 103 20 144/90 96 Mechanical Ventilator 80 97.7 11/12/17 17:25 80 11/12/17 17:17 102 29 60 11/12/17 16:00 97.8 98 20 145/89 93 Mechanical Ventilator 40 97.8 98 11/12/17 16:00 60 11/12/17 16:00 100 Intake and Output 11/12/17 11/13/17 19:00 07:00 Intake Total 535 ml 820 ml Output Total 1020 ml 1400 ml Balance -485 ml -580 ml IV Total 310 ml 210 ml Tube Feeding 225 ml 360 ml Blood Product 250 ml Output Urine Total 800 ml 1400 ml Stool Total 220 ml # Bowel Movements 50 Laboratory Tests Test 11/13/17 04:00 White Blood Count 21.1 K/UL (4.8-10.8) H Red Blood Count 2.76 M/UL (4.70-6.10) L Hemoglobin 8.3 G/DL (14.2-18.0) L Hematocrit 24.9 % (42.0-52.0) L Mean Corpuscular Volume 90 FL (80-99) Mean Corpuscular Hemoglobin 29.9 PG (27.0-31.0) Mean Corpuscular Hemoglobin Concent 33.2 G/DL (32.0-36.0) Red Cell Distribution Width 15.2 % (11.6-14.8) H Platelet Count 387 K/UL (150-450) Mean Platelet Volume 5.3 FL (6.5-10.1) L Neutrophils (%) (Auto) % (45.0-75.0) Lymphocytes (%) (Auto) % (20.0-45.0) Monocytes (%) (Auto) % (1.0-10.0) Eosinophils (%) (Auto) % (0.0-3.0) Basophils (%) (Auto) % (0.0-2.0) Differential Total Cells Counted 100 Neutrophils % (Manual) 86 % (45-75) H Lymphocytes % (Manual) 7 % (20-45) L Monocytes % (Manual) 6 % (1-10) Eosinophils % (Manual) 1 % (0-3) Basophils % (Manual) 0 % (0-2) Band Neutrophils 0 % (0-8) Platelet Estimate Adequate Platelet Morphology Normal Hypochromasia 2+ Anisocytosis 1+ Spherocytes 1+ Sodium Level 147 MMOL/L (136-145) H Potassium Level 3.3 MMOL/L (3.5-5.1) L Chloride Level 111 MMOL/L (98-107) H Carbon Dioxide Level 31 MMOL/L (21-32) Anion Gap 6 mmol/L (5-15) Blood Urea Nitrogen 36 mg/dL (7-18) H Creatinine 2.4 MG/DL (0.55-1.30) H Estimat Glomerular Filtration Rate 33.6 mL/min (>60) Glucose Level 90 MG/DL (74-106) Uric Acid 6.1 MG/DL (2.6-7.2) Calcium Level 8.3 MG/DL (8.5-10.1) L Phosphorus Level 3.3 MG/DL (2.5-4.9) Magnesium Level 1.6 MG/DL (1.8-2.4) L Total Bilirubin 0.5 MG/DL (0.2-1.0) Aspartate Amino Transf (AST/SGOT) 20 U/L (15-37) Alanine Aminotransferase (ALT/SGPT) 25 U/L (12-78) Alkaline Phosphatase 132 U/L (46-116) H C-Reactive Protein, Quantitative 11.9 mg/dL (0.00-0.90) H Pro-B-Type Natriuretic Peptide 1838 pg/mL (0-125) H Total Protein 6.4 G/DL (6.4-8.2) Albumin 1.9 G/DL (3.4-5.0) L Globulin 4.5 g/dL Albumin/Globulin Ratio 0.4 (1.0-2.7) L Height (Feet): 5 Height (Inches): 6.00 Weight (Pounds): 220 General Appearance: alert Cardiovascular: normal rate Respiratory/Chest: [facility] Abdominal Exam: GT site - c/d/i Laura Lucas N.P. Nov 13, 2017 15:57
[2017-11-13 20:00] VITALS: BP 119/86
[2017-11-13] MEDS: Dyna-Hex 2% Top Sol 2oz TOPIC SCH (20:54)
[2017-11-13] MEDS ORDERED: Metoprolol Tartrate 50mg tab GT SCH (21:00)
[2017-11-14] VITALS: BP 138/80
[2017-11-14] MEDS: dilTIAZem HCl 30mg tab GT SCH ×4 (00:25→17:22)
[2017-11-14 04:00] VITALS: BP 130/70
[2017-11-14] MEDS: Tigecycline 50 MG in D5W 110 ML IVPB SCH ×2 (04:32→17:22)
[2017-11-14] MEDS: Levalbuterol Inh UD 1.25mg/0.5ml HHN SCH ×5 (06:58→23:32)
[2017-11-14 07:04] LABS: HEMATOCRIT 24.2 % (42.0-52.0); HEMOGLOBIN 8.1 G/DL (14.2-18.0); MEAN CORPUSCULAR VOLUME 90 FL (80-99); PLATELET COUNT 402 K/UL (150-450); RED BLOOD COUNT 2.68 M/UL (4.70-6.10); RED CELL DISTRIBUTION WIDTH 15.6 % (11.6-14.8); WHITE BLOOD COUNT 20.2 K/UL (4.8-10.8)
--- NOTE | 2017-11-14 07:10 | Pulmonolgy Critical Care Note ---
Critical Care - Asmt/Plan Problems: (1) Acute respiratory failure (2) Collapse of right lung (3) Acute renal failure (ARF) (4) Pneumonia (5) Sepsis (6) Epileptic seizure, generalized (7) Feeding by G-tube (8) C. 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 - Objective Last 24 Hour Vital Signs Date Time Temp Pulse Resp B/P (MAP) Pulse Ox O2 Delivery O2 Flow Rate FiO2 11/14/17 06:58 95 19 100 11/14/17 05:28 115 22 100 11/14/17 05:24 93 130/70 11/14/17 04:00 94 11/14/17 04:00 98.1 93 18 130/70 97 Mechanical Ventilator 100 98.1 11/14/17 04:00 100 11/14/17 03:25 97 19 100 11/14/17 01:43 103 19 100 11/14/17 00:25 94 121/86 11/14/17 00:00 98.2 94 17 138/80 97 Mechanical Ventilator 100 98.2 11/14/17 00:00 89 11/14/17 00:00 100 11/13/17 23:34 106 19 100 11/13/17 21:25 99.0 11/13/17 20:59 103 18 100 11/13/17 20:55 116 119/86 11/13/17 20:55 100.8 11/13/17 20:00 100.8 116 18 119/86 100 Mechanical Ventilator 100 100.8 11/13/17 20:00 96 11/13/17 20:00 100 11/13/17 19:44 109 18 92 Mechanical Ventilator 100 11/13/17 19:29 106 24 93 Mechanical Ventilator 100 11/13/17 19:28 106 18 100 11/13/17 17:10 118 29 100 11/13/17 17:01 101 134/80 11/13/17 16:00 100 3/6/18 15:45 123 11/13/17 15:27 99.5 101 18 134/80 100 Mechanical Ventilator 100 99.5 11/13/17 14:42 100 11/13/17 14:39 113 29 100 11/13/17 14:37 112 18 100 Mechanical Ventilator 100 11/13/17 13:24 124 29 100 11/13/17 13:23 129 24 86 Mechanical Ventilator 100 11/13/17 12:00 97.0 110 20 149/89 98 Mechanical Ventilator 100 97.0 11/13/17 12:00 100 11/13/17 11:51 109 11/13/17 11:25 108 22 100 11/13/17 09:24 98 155/100 11/13/17 09:15 98 20 100 11/13/17 09:14 104 24 100 Mechanical Ventilator 100 11/13/17 08:00 100 11/13/17 08:00 96.6 103 21 155/100 92 Mechanical Ventilator 100 96.6 11/13/17 07:39 92 Status: awake Condition: critical, grave HEENT: atraumatic Lungs: chest wall tender Heart: HR/BP stable, regular Abdomen: active bowel sounds, feeding tube Extremities: edema Decubiti: location Critical Care - Subjective ROS Limited/Unobtainable: Yes Condition: critical EKG Rhythm: V-Paced FI02: 100 Vent Support Breath Rate: 18 Vent Support Mode: AC Vent Tidal Volume: 700 Sputum Amount: Moderate PEEP: 7.0 PIP: 27 Tube Feeding Amount: 50 I&O: Intake and Output 11/13/17 11/14/17 19:00 07:00 Intake Total 1155.0 ml 592.5 ml Output Total 1050 ml 1250 ml Balance 105.0 ml -657.5 ml IV Total 795.0 ml 142.5 ml Tube Feeding 300 ml 450 ml Other 60 ml Output Urine Total 1000 ml 1200 ml Stool Total 50 ml 50 ml # Bowel Movements 1 CXR: no change ET-Tube: 8.0 ET Position: 24 Labs: Laboratory Tests Test 11/14/17 05:30 White Blood Count 20.2 K/UL (4.8-10.8) H Red Blood Count 2.68 M/UL (4.70-6.10) L Hemoglobin 8.1 G/DL (14.2-18.0) L Hematocrit 24.2 % (42.0-52.0) L Mean Corpuscular Volume 90 FL (80-99) Mean Corpuscular Hemoglobin 30.1 PG (27.0-31.0) Mean Corpuscular Hemoglobin Concent 33.4 G/DL (32.0-36.0) Red Cell Distribution Width 15.6 % (11.6-14.8) H Platelet Count 402 K/UL (150-450) Mean Platelet Volume 5.6 FL (6.5-10.1) L Neutrophils (%) (Auto) % (45.0-75.0) Lymphocytes (%) (Auto) % (20.0-45.0) Monocytes (%) (Auto) % (1.0-10.0) Eosinophils (%) (Auto) % (0.0-3.0) Basophils (%) (Auto) % (0.0-2.0) Neutrophils % (Manual) Pending Lymphocytes % (Manual) Pending Platelet Estimate Pending Platelet Morphology Pending Sodium Level Pending Potassium Level Pending Chloride Level Pending Carbon Dioxide Level Pending Blood Urea Nitrogen Pending Creatinine Pending Estimat Glomerular Filtration Rate Pending Glucose Level Pending Uric Acid Pending Calcium Level Pending Phosphorus Level Pending Magnesium Level Pending Total Bilirubin Pending Aspartate Amino Transf (AST/SGOT) Pending Alanine Aminotransferase (ALT/SGPT) Pending Alkaline Phosphatase Pending Pro-B-Type Natriuretic Peptide Pending Total Protein Pending Albumin Pending Globulin Pending EDDIE COLES Nov 14, 2017 07:10
[2017-11-14 07:31] LABS: ALANINE AMINOTRANSFERASE 20 U/L (12-78); ALBUMIN 2.2 G/DL (3.4-5.0); ALBUMIN/GLOBULIN RATIO 0.5 (1.0-2.7); ALKALINE PHOSPHATASE 130 U/L (46-116); ANION GAP 9 mmol/L (5-15); ASPARTATE AMINO TRANSFERASE 19 U/L (15-37); BILIRUBIN,TOTAL 0.7 MG/DL (0.2-1.0); BLOOD UREA NITROGEN 32 mg/dL (7-18); CALCIUM 8.3 MG/DL (8.5-10.1); CARBON DIOXIDE 26 MMOL/L (21-32); CHLORIDE 112 MMOL/L (98-107); CREATININE 2.3 MG/DL (0.55-1.30); POTASSIUM 3.4 MMOL/L (3.5-5.1); SODIUM 147 MMOL/L (136-145)
[2017-11-14 08:00] VITALS: BP 140/81
[2017-11-14] MEDS: Lactobacillus-GG tablet GT SCH ×3 (08:56→17:22)
[2017-11-14] MEDS: Vancomycin oral 125mg/2.5ml GT SCH ×4 (08:56→20:52)
[2017-11-14] MEDS ORDERED: Potassium Chloride 40 MEQ in Sodium Chloride 500ML 550 ML IVPB ONE (10:30)
[2017-11-14 12:00] VITALS: BP 140/88
--- NOTE | 2017-11-14 12:19 | GI Progress Note ---
Assessment/Plan Problems: (1) Dysphagia ICD Codes: R13.10 - Dysphagia, unspecified SNOMED: 57173573, 409255245 (2) Dementia ICD Codes: F03.90 - Unspecified dementia without behavioral disturbance SNOMED: 06400516 (3) PEG (percutaneous endoscopic gastrostomy) adjustment/replacement/removal ICD Codes: Z43.1 - Encounter for attention to gastrostomy SNOMED: 697240618, 295878114 (4) CVA, old, hemiparesis ICD Codes: I69.359 - Hemiplegia and hemiparesis following cerebral infarction affecting unspecified side SNOMED: 31523763, 15555420, [id number] Status: unchanged Status Narrative Discussed with Dr. Campos. Assessment/Plan s/p EGD and hemostasis cdiff positive >> dc ppi, H2B BID gastric lavage performed by RN with no evidence of gastric bleed monitor H&H, prn transfusion cont GTFs per RD GT site care BID/prn abx poor prognosis fu labs Subjective Subjective limited Objective Last 24 Hour Vital Signs Date Time Temp Pulse Resp B/P (MAP) Pulse Ox O2 Delivery O2 Flow Rate FiO2 11/14/17 11:29 100 21 99 Mechanical Ventilator 100 11/14/17 11:18 99 21 99 Mechanical Ventilator 100 11/14/17 11:06 100 20 100 11/14/17 09:30 101 21 100 11/14/17 08:00 98.4 16 140/81 98 Mechanical Ventilator 100 98.4 11/14/17 08:00 100 11/14/17 07:32 111 11/14/17 07:26 107 18 97 Mechanical Ventilator 100 11/14/17 07:06 109 19 96 Mechanical Ventilator 100 11/14/17 06:58 95 19 100 11/14/17 05:28 115 22 100 11/14/17 05:24 93 130/70 11/14/17 04:00 94 11/14/17 04:00 98.1 93 18 130/70 97 Mechanical Ventilator 100 98.1 11/14/17 04:00 100 11/14/17 03:25 97 19 100 11/14/17 01:43 103 19 100 11/14/17 00:25 94 121/86 11/14/17 00:00 98.2 94 17 138/80 97 Mechanical Ventilator 100 98.2 3/7/18 00:00 89 11/14/17 00:00 100 11/13/17 23:34 106 19 100 11/13/17 21:25 99.0 11/13/17 20:59 103 18 100 11/13/17 20:55 116 119/86 11/13/17 20:55 100.8 11/13/17 20:00 100.8 116 18 119/86 100 Mechanical Ventilator 100 100.8 11/13/17 20:00 96 11/13/17 20:00 100 11/13/17 19:44 109 18 92 Mechanical Ventilator 100 11/13/17 19:29 106 24 93 Mechanical Ventilator 100 11/13/17 19:28 106 18 100 11/13/17 17:10 118 29 100 11/13/17 17:01 101 134/80 11/13/17 16:00 100 11/13/17 15:45 123 11/13/17 15:27 99.5 101 18 134/80 100 Mechanical Ventilator 100 99.5 11/13/17 14:42 100 11/13/17 14:39 113 29 100 11/13/17 14:37 112 18 100 Mechanical Ventilator 100 11/13/17 13:24 124 29 100 11/13/17 13:23 129 24 86 Mechanical Ventilator 100 Intake and Output 11/13/17 11/14/17 19:00 07:00 Intake Total 1155.0 ml 592.5 ml Output Total 1050 ml 1250 ml Balance 105.0 ml -657.5 ml IV Total 795.0 ml 142.5 ml Tube Feeding 300 ml 450 ml Other 60 ml Output Urine Total 1000 ml 1200 ml Stool Total 50 ml 50 ml # Bowel Movements 1 Laboratory Tests Test 11/14/17 05:30 White Blood Count 20.2 K/UL (4.8-10.8) H Red Blood Count 2.68 M/UL (4.70-6.10) L Hemoglobin 8.1 G/DL (14.2-18.0) L Hematocrit 24.2 % (42.0-52.0) L Mean Corpuscular Volume 90 FL (80-99) Mean Corpuscular Hemoglobin 30.1 PG (27.0-31.0) Mean Corpuscular Hemoglobin Concent 33.4 G/DL (32.0-36.0) Red Cell Distribution Width 15.6 % (11.6-14.8) H Platelet Count 402 K/UL (150-450) Mean Platelet Volume 5.6 FL (6.5-10.1) L Neutrophils (%) (Auto) % (45.0-75.0) Lymphocytes (%) (Auto) % (20.0-45.0) Monocytes (%) (Auto) % (1.0-10.0) Eosinophils (%) (Auto) % (0.0-3.0) Basophils (%) (Auto) % (0.0-2.0) Differential Total Cells Counted 100 Neutrophils % (Manual) 82 % (45-75) H Lymphocytes % (Manual) 8 % (20-45) L Monocytes % (Manual) 8 % (1-10) Eosinophils % (Manual) 2 % (0-3) Basophils % (Manual) 0 % (0-2) Band Neutrophils 0 % (0-8) Platelet Estimate Adequate Platelet Morphology Normal Hypochromasia 2+ Anisocytosis 1+ Sodium Level 147 MMOL/L (136-145) H Potassium Level 3.4 MMOL/L (3.5-5.1) L Chloride Level 112 MMOL/L (98-107) H Carbon Dioxide Level 26 MMOL/L (21-32) Anion Gap 9 mmol/L (5-15) Blood Urea Nitrogen 32 mg/dL (7-18) H Creatinine 2.3 MG/DL (0.55-1.30) H Estimat Glomerular Filtration Rate 35.3 mL/min (>60) Glucose Level 100 MG/DL (74-106) Uric Acid 6.4 MG/DL (2.6-7.2) Calcium Level 8.3 MG/DL (8.5-10.1) L Phosphorus Level 3.0 MG/DL (2.5-4.9) Magnesium Level 2.0 MG/DL (1.8-2.4) Total Bilirubin 0.7 MG/DL (0.2-1.0) Aspartate Amino Transf (AST/SGOT) 19 U/L (15-37) Alanine Aminotransferase (ALT/SGPT) 20 U/L (12-78) Alkaline Phosphatase 130 U/L (46-116) H Pro-B-Type Natriuretic Peptide 2278 pg/mL (0-125) H Total Protein 6.5 G/DL (6.4-8.2) Albumin 2.2 G/DL (3.4-5.0) L Globulin 4.3 g/dL Albumin/Globulin Ratio 0.5 (1.0-2.7) L Height (Feet): 5 Height (Inches): 6.00 Weight (Pounds): 218 General Appearance: alert Cardiovascular: normal rate Respiratory/Chest: other - mech vent Abdominal Exam: GT site - dressing changed Laura Lucas N.P. Nov 14, 2017 12:19
--- NOTE | 2017-11-14 13:03 | Nephrology Progress Note ---
Assessment/Plan Problem List: (1) Acute renal failure (ARF) Assessment: resolving (2) Respiratory failure (3) Shock liver Assessment Cr lowering JULIA , due to Shock , Hemorrhagic / Septic / C dif colitis worsenning anemia Off Pressors- Shock liver resolving High Troponin: IL Bradycardic - Vfib cardiac arrest 10/26 likely 2ry to hemorrhagic shock (drop Hgb 10.8 to 5) - GIB- Fever, ongoing Leukocytosis, worsening after code E.coli UTI w/ bacteremia Acute hypoxic resp failure- s/p Trach . Plan Plan: dialyse 11/10 next ? ? does not need any more- K supplement D%W one liter on cardiazem has new cath right chest K IV as needed right groin cath removed being transfused add Renvela and Lactobacillus BP stablized start GT feeding HD trial as needed- on C dif treatment protocol monitor urine out put and Renal parameters discussed with RN Subjective ROS Limited/Unobtainable: Yes Objective Objective Last 24 Hour Vital Signs Date Time Temp Pulse Resp B/P (MAP) Pulse Ox O2 Delivery O2 Flow Rate FiO2 11/14/17 12:55 104 140/88 11/14/17 12:00 99.3 104 16 140/88 100 Mechanical Ventilator 100 99.3 11/14/17 11:29 100 21 99 Mechanical Ventilator 100 11/14/17 11:18 99 21 99 Mechanical Ventilator 100 11/14/17 11:06 100 20 100 11/14/17 09:30 101 21 100 11/14/17 08:00 98.4 16 140/81 98 Mechanical Ventilator 100 98.4 11/14/17 08:00 100 11/14/17 07:32 111 11/14/17 07:26 107 18 97 Mechanical Ventilator 100 11/14/17 07:06 109 19 96 Mechanical Ventilator 100 11/14/17 06:58 95 19 100 11/14/17 05:28 115 22 100 11/14/17 05:24 93 130/70 11/14/17 04:00 94 11/14/17 04:00 98.1 93 18 130/70 97 Mechanical Ventilator 100 98.1 11/14/17 04:00 100 11/14/17 03:25 97 19 100 11/14/17 01:43 103 19 100 11/14/17 00:25 94 121/86 11/14/17 00:00 98.2 94 17 138/80 97 Mechanical Ventilator 100 98.2 11/14/17 00:00 89 11/14/17 00:00 100 11/13/17 23:34 106 19 100 11/13/17 21:25 99.0 11/13/17 20:59 103 18 100 11/13/17 20:55 116 119/86 11/13/17 20:55 100.8 11/13/17 20:00 100.8 116 18 119/86 100 Mechanical Ventilator 100 100.8 11/13/17 20:00 96 11/13/17 20:00 100 11/13/17 19:44 109 18 92 Mechanical Ventilator 100 11/13/17 19:29 106 24 93 Mechanical Ventilator 100 11/13/17 19:28 106 18 100 11/13/17 17:10 118 29 100 11/13/17 17:01 101 134/80 11/13/17 16:00 100 11/13/17 15:45 123 11/13/17 15:27 99.5 101 18 134/80 100 Mechanical Ventilator 100 99.5 11/13/17 14:42 100 11/13/17 14:39 113 29 100 11/13/17 14:37 112 18 100 Mechanical Ventilator 100 11/13/17 13:24 124 29 100 11/13/17 13:23 129 24 86 Mechanical Ventilator 100 Intake and Output 11/13/17 11/14/17 19:00 07:00 Intake Total 1155.0 ml 592.5 ml Output Total 1050 ml 1250 ml Balance 105.0 ml -657.5 ml IV Total 795.0 ml 142.5 ml Tube Feeding 300 ml 450 ml Other 60 ml Output Urine Total 1000 ml 1200 ml Stool Total 50 ml 50 ml # Bowel Movements 1 Laboratory Tests 11/14/17 05:30: White Blood Count 20.2H, Red Blood Count 2.68L, Hemoglobin 8.1L, Hematocrit 24.2L, Mean Corpuscular Volume 90, Mean Corpuscular Hemoglobin 30.1, Mean Corpuscular Hemoglobin Concent 33.4, Red Cell Distribution Width 15.6H, Platelet Count 402, Mean Platelet Volume 5.6L, Neutrophils (%) (Auto) , Lymphocytes (%) (Auto) , Monocytes (%) (Auto) , Eosinophils (%) (Auto) , Basophils (%) (Auto) , Differential Total Cells Counted 100, Neutrophils % ( Manual) 82H, Lymphocytes % (Manual) 8L, Monocytes % (Manual) 8, Eosinophils % ( Manual) 2, Basophils % (Manual) 0, Band Neutrophils 0, Platelet Estimate Adequate, Platelet Morphology Normal, Hypochromasia 2+, Anisocytosis 1+, Sodium Level 147H, Potassium Level 3.4L, Chloride Level 112H, Carbon Dioxide Level 26, Anion Gap 9, Blood Urea Nitrogen 32H, Creatinine 2.3H, Estimat Glomerular Filtration Rate 35.3, Glucose Level 100, Uric Acid 6.4, Calcium Level 8.3L, Phosphorus Level 3.0, Magnesium Level 2.0, Total Bilirubin 0.7, Aspartate Amino Transf (AST/SGOT) 19, Alanine Aminotransferase (ALT/SGPT) 20, Alkaline Phosphatase 130H, Pro-B-Type Natriuretic Peptide 2278H, Total Protein 6.5, Albumin 2.2L, Globulin 4.3, Albumin/Globulin Ratio 0.5L Height (Feet): 5 Height (Inches): 6.00 Weight (Pounds): 218 General Appearance: no apparent distress Cardiovascular: tachycardia Respiratory/Chest: decreased breath sounds Abdomen: distended Objective no other change YVES SINHA Nov 14, 2017 13:02
[2017-11-14] MEDS: Metoprolol Tartrate 50mg tab GT SCH ×2 (13:10→21:02)
--- NOTE | 2017-11-14 14:15 | Infectious Diseases Prog Note ---
Assessment/Plan Assessment/Plan A C Diff +ve, diarrhea mild improvement Fever, SP Leukocytosis, improving -CXR: 10/30 : Slightly increased hazy opacity left lung base and obscuration of left hemidiaphragm, may reflect increased infiltrates and/or pleural fluid E.coli UTI w/ bacteremia ; s/p Rx -REnal US: Limited exam. No definite hydronephrosis. Empty bladder, containing a Cervantes catheter. Suspicion for Flu despite rapid test (+URI symptoms, sick contacts); s/p Rx ? Pneum 10/15 CXR : Increased left pleural fluid and and left basilar atelectasis. Ro Cholecystitis CT and US : Gallbladder wall edema nonspecific in nature - HIDA aborted midway, pt become unstable Acute hypoxic resp failure- intubated (10/20) , SP Trach 10/23 12/18 KUB : Distended small bowel. Ileus versus obstruction. SP cardiac arrest 10/26 SP hemorrhagic shock (drop Hgb 10.8 to 5)- 10/12 GIB- transaminitis due to shock improving JULIA on HD , HD cath Lactic acidosis, resolved UGI bleed / Anemia SP EGD 10/18 and 10/26 Path: H Pylori Neg CVA with hemiplegia HTN cataract dysphagia Hx of fall CAD/NH CVA/TIA dementia seizure disorder Plan: -Continue Flagyl and oral Vanco d# , add Tygacil d# / ( Coverage of C Diff and probable Cholecystitis ) 10/30 SP Meropenem d# 5 - 10/29 SP IV Vanco # 10 - 10/26 SP Zosyn #6 - 10/21 SP Ceftriaxone 2 g qd d# 11 - 10/17 SP empiric Tamiflu #6/5 -10/15 SP IV Vancomcyin #5, Meropenm #3 -10/13 SP Cefepime #3 -Monitor CBC/BMP, temperatures; -aspiration precautions - vent Support - repeat Cx if WBG does not improve Subjective Constitutional: Denies: no symptoms, fever, chills, fatigue, anorexia, drenching sweats, other Allergies: Uncoded Allergies: TAPE (Adverse Reaction, Mild, 11/09/17) REDNESS AT TAPE SITE WHEN APPLIED TAPE Subjective afebrile Objective Vital Signs Last 24 Hour Vital Signs Date Time Temp Pulse Resp B/P (MAP) Pulse Ox O2 Delivery O2 Flow Rate FiO2 3/7/18 13:10 104 140/88 11/14/17 12:55 104 140/88 11/14/17 12:00 100 11/14/17 12:00 99.3 104 16 140/88 100 Mechanical Ventilator 100 99.3 11/14/17 11:36 102 11/14/17 11:29 100 21 99 Mechanical Ventilator 100 11/14/17 11:18 99 21 99 Mechanical Ventilator 100 11/14/17 11:06 100 20 100 11/14/17 09:30 101 21 100 11/14/17 08:00 98.4 16 140/81 98 Mechanical Ventilator 100 98.4 11/14/17 08:00 100 11/14/17 07:32 111 11/14/17 07:26 107 18 97 Mechanical Ventilator 100 11/14/17 07:06 109 19 96 Mechanical Ventilator 100 11/14/17 06:58 95 19 100 11/14/17 05:28 115 22 100 11/14/17 05:24 93 130/70 11/14/17 04:00 94 11/14/17 04:00 98.1 93 18 130/70 97 Mechanical Ventilator 100 98.1 11/14/17 04:00 100 11/14/17 03:25 97 19 100 11/14/17 01:43 103 19 100 11/14/17 00:25 94 121/86 11/14/17 00:00 98.2 94 17 138/80 97 Mechanical Ventilator 100 98.2 11/14/17 00:00 89 11/14/17 00:00 100 11/13/17 23:34 106 19 100 11/13/17 21:25 99.0 11/13/17 20:59 103 18 100 11/13/17 20:55 116 119/86 11/13/17 20:55 100.8 11/13/17 20:00 100.8 116 18 119/86 100 Mechanical Ventilator 100 100.8 11/13/17 20:00 96 11/13/17 20:00 100 11/13/17 19:44 109 18 92 Mechanical Ventilator 100 11/13/17 19:29 106 24 93 Mechanical Ventilator 100 11/13/17 19:28 106 18 100 11/13/17 17:10 118 29 100 11/13/17 17:01 101 134/80 11/13/17 16:00 100 11/13/17 15:45 123 11/13/17 15:27 99.5 101 18 134/80 100 Mechanical Ventilator 100 99.5 11/13/17 14:42 100 11/13/17 14:39 113 29 100 11/13/17 14:37 112 18 100 Mechanical Ventilator 100 Height (Feet): 5 Height (Inches): 6.00 Weight (Pounds): 218 HEENT: atraumatic Respiratory/Chest: normal breath sounds Cardiovascular: normal rate Abdomen: no organomegaly Laboratory Tests Test 11/14/17 05:30 White Blood Count 20.2 K/UL (4.8-10.8) H Red Blood Count 2.68 M/UL (4.70-6.10) L Hemoglobin 8.1 G/DL (14.2-18.0) L Hematocrit 24.2 % (42.0-52.0) L Mean Corpuscular Volume 90 FL (80-99) Mean Corpuscular Hemoglobin 30.1 PG (27.0-31.0) Mean Corpuscular Hemoglobin Concent 33.4 G/DL (32.0-36.0) Red Cell Distribution Width 15.6 % (11.6-14.8) H Platelet Count 402 K/UL (150-450) Mean Platelet Volume 5.6 FL (6.5-10.1) L Neutrophils (%) (Auto) % (45.0-75.0) Lymphocytes (%) (Auto) % (20.0-45.0) Monocytes (%) (Auto) % (1.0-10.0) Eosinophils (%) (Auto) % (0.0-3.0) Basophils (%) (Auto) % (0.0-2.0) Differential Total Cells Counted 100 Neutrophils % (Manual) 82 % (45-75) H Lymphocytes % (Manual) 8 % (20-45) L Monocytes % (Manual) 8 % (1-10) Eosinophils % (Manual) 2 % (0-3) Basophils % (Manual) 0 % (0-2) Band Neutrophils 0 % (0-8) Platelet Estimate Adequate Platelet Morphology Normal Hypochromasia 2+ Anisocytosis 1+ Sodium Level 147 MMOL/L (136-145) H Potassium Level 3.4 MMOL/L (3.5-5.1) L Chloride Level 112 MMOL/L (98-107) H Carbon Dioxide Level 26 MMOL/L (21-32) Anion Gap 9 mmol/L (5-15) Blood Urea Nitrogen 32 mg/dL (7-18) H Creatinine 2.3 MG/DL (0.55-1.30) H Estimat Glomerular Filtration Rate 35.3 mL/min (>60) Glucose Level 100 MG/DL (74-106) Uric Acid 6.4 MG/DL (2.6-7.2) Calcium Level 8.3 MG/DL (8.5-10.1) L Phosphorus Level 3.0 MG/DL (2.5-4.9) Magnesium Level 2.0 MG/DL (1.8-2.4) Total Bilirubin 0.7 MG/DL (0.2-1.0) Aspartate Amino Transf (AST/SGOT) 19 U/L (15-37) Alanine Aminotransferase (ALT/SGPT) 20 U/L (12-78) Alkaline Phosphatase 130 U/L (46-116) H Pro-B-Type Natriuretic Peptide 2278 pg/mL (0-125) H Total Protein 6.5 G/DL (6.4-8.2) Albumin 2.2 G/DL (3.4-5.0) L Globulin 4.3 g/dL Albumin/Globulin Ratio 0.5 (1.0-2.7) L Current Medications Medications (Trade) Dose Ordered Sig/Olvin Route PRN Reason Start Time Stop Time Status Last Admin Dose Admin Acetaminophen (Tylenol) 650 mg Q4H PRN RECTAL Mild Pain (Pain Scale 1-3) 10/30/17 21:00 11/20/17 20:59 11/13/17 20:55 Albuterol/ Ipratropium (Albuterol/ Ipratropium) 3 ml Q4HRT PRN HHN sob 11/10/17 14:45 11/15/17 23:59 11/12/17 22:51 Chlorhexidine Gluconate (Pamela-Hex 2%) 1 applic DAILY@1999 TOPIC 10/31/17 22:00 11/23/17 21:59 11/13/17 20:54 Dextrose 1,000 ml @ 100 mls/hr Q10H ONCE IV 11/14/17 09:00 11/14/17 18:59 11/14/17 09:02 Diltiazem HCl (Cardizem) 30 mg EVERY 6 HOURS GT 11/13/17 18:00 12/12/17 13:59 11/14/17 12:55 Famotidine (Pepcid) 20 mg BID GT 11/14/17 18:00 12/14/17 17:59 Lactobacillus Acidophilus (Culturelle) 1 tab THREE TIMES A DAY GT 11/03/17 13:00 12/03/17 12:59 11/14/17 13:10 Levalbuterol HCl (Xopenex) 1.25 mg Q4HRT HHN 11/14/17 11:00 11/19/17 10:59 11/14/17 11:06 Lorazepam (Ativan 2mg/ml 1ml) 2 mg Q4H PRN IV For Anxiety 11/10/17 16:45 11/17/17 23:59 11/10/17 18:42 Metoclopramide HCl (Reglan) 5 mg Q6H PRN GT Irrectractable Nausea/Vomiting 10/30/17 21:00 11/29/17 20:59 11/12/17 09:32 Metoprolol Tartrate (Lopressor) 50 mg Q8HR GT 11/14/17 14:00 12/13/17 20:59 11/14/17 13:10 Metronidazole 100 ml @ 100 mls/hr Q8HR IV 10/30/17 22:00 11/16/17 21:59 11/14/17 13:10 Nitroglycerin (Ntg) 0.4 mg Q5MIN X 3 DOSES PRN SL Prn Chest Pain 10/30/17 20:45 11/14/17 17:09 Ondansetron HCl (Zofran) 4 mg Q6H PRN IVP Nausea & Vomiting 10/30/17 21:00 11/29/17 20:59 Potassium Chloride 40 meq/ Sodium Chloride 570 ml @ 142.5 mls/ hr ONCE ONCE IVPB 11/14/17 10:30 11/14/17 14:29 11/14/17 11:43 Tigecycline 50 mg/ Dextrose 110 ml @ 220 mls/hr Q12HR@0500,1700 IVPB 11/12/17 05:00 11/19/17 04:59 11/14/17 04:32 Vancomycin HCl (Vancomycin) 125 mg FOUR TIMES A DAY GT 11/11/17 21:00 11/18/17 20:59 11/14/17 12:55 FAUSTINO AGARWAL M.D. Nov 14, 2017 14:14
[2017-11-14] MEDS: Albuterol/Ipratropium 3ml neb HHN PRN (15:12)
[2017-11-14 16:00] VITALS: BP 150/85
--- NOTE | 2017-11-14 18:14 | Wound Care Consultation ---
Wound Assessment Wound Assessment #1: Wound Present on Admission: No New Wound: Yes Status Change of Wound: No Wound Location Body Site Modif: left, medial Wound Location Body Site: thigh Wound Type: blister - DENUDED Roger Test: Does not Roger Wound Thickness: Partial Thickness Percent of Wound [place]/Red: 100 - SCATTERED Percent of Wound Purple/Maroon: 100 Wound Drainage Description: Serosanguineous Wound Drainage Amount: Scant Wound Drainage Odor: None/Absent Tissue Surrounding Wound: Intact Wound General Appearance: Reddened Wound Assessment #2: Wound Number: 2 Wound Present on Admission: No New Wound: Yes Status Change of Wound: No Wound Location Body Site Modif: right Wound Location Body Site: knee Wound Type: scab Roger Test: Does not Roger Wound Thickness: Partial Thickness Wound Length: 1.0 Wound Width: 1.0 Wound Depth: 0.1 Percent of Wound Black/Brown: 100 - APPEARING SCAB Wound Drainage Amount: None Wound Drainage Odor: None/Absent Tissue Surrounding Wound: Intact Wound General Appearance: Reddened, Clean/Dry Wound Comment reassessment - noted good progress to admitted wounds, no further deterioration present. #1 Right lateral malleolus SDTI pressure ulcer. Skin still intact #2 Left anterior lower leg open wound. Etiology unknown. with dry scabs. Good progress noted #3 Right dorsal foot dry scab. Still intact #4 Open blister on left medial lower leg-good progress noted appearing dry #5 Abdominal area scattered open blisters-good progress noted appearing dry #6 Right upper thigh area with open and intact blisters-good progress noted appearing dry #7 Left medial dorsal foot DTI pressure ulcer- remains intact dry #8 left medial thigh scattered blisters.denuded #9 right knee scab- keep clean and dry Reassessed this Pt. New wounds noted. will cont to monitor and will follow protocol order for treatment. No deterioration noted on wounds that Pt admitted with . Cont the same wound care treatment and recommendation Recommendation -Local wound care per protocol -Keep clean and dry -Optimize nutrition -Turn and reposition -Heel protector on both heels -Offload both heels -Low air loss mattress -Assess and f/u accordingly for any changes EMMANUELLE SALCIDO Nov 14, 2017 18:14
--- NOTE | 2017-11-14 19:49 | Cardiology Progress Note ---
Assessment/Plan Assessment/Plan 1. Cardiopulmonary arrest on three separate occasions. 2. Massive gastrointestinal bleed. 3. Encephalopathy. 4. Abnormal liver function tests, likely shock liver. 5. Acute renal failure. 6. Anemia. 7. NSTEMI type2 related to cardiopulmonary resuscitation and renal insufficiency. 8. Chronic respiratory failure. 9. History of cerebrovascular accident. 10. c diff 11. htn onthe vent dialysis per dr wang tele sinus still bp is stable remain on high lisa oxygen on norvasc for bp skip dose before dialysis Subjective ROS Limited/Unobtainable: Yes Subjective on the vent Objective Last 24 Hour Vital Signs Date Time Temp Pulse Resp B/P (MAP) Pulse Ox O2 Delivery O2 Flow Rate FiO2 11/14/17 19:23 86 18 99 Mechanical Ventilator 100 11/14/17 19:16 86 18 100 11/14/17 19:16 88 18 98 Mechanical Ventilator 100 11/14/17 17:22 107 150/85 11/14/17 17:06 107 24 100 11/14/17 16:00 100 11/14/17 16:00 99.8 93 16 150/85 100 Mechanical Ventilator 100 99.8 11/14/17 15:26 102 21 99 Mechanical Ventilator 100 11/14/17 15:16 100 21 99 Mechanical Ventilator 100 11/14/17 15:15 100 20 100 11/14/17 15:15 97 11/14/17 14:14 109 20 100 11/14/17 13:10 104 140/88 11/14/17 12:55 104 140/88 11/14/17 12:00 100 11/14/17 12:00 99.3 104 16 140/88 100 Mechanical Ventilator 100 99.3 11/14/17 11:36 102 11/14/17 11:29 100 21 99 Mechanical Ventilator 100 11/14/17 11:18 99 21 99 Mechanical Ventilator 100 11/14/17 11:06 100 20 100 11/14/17 09:30 101 21 100 11/14/17 08:00 98.4 16 140/81 98 Mechanical Ventilator 100 98.4 11/14/17 08:00 100 11/14/17 07:32 111 11/14/17 07:26 107 18 97 Mechanical Ventilator 100 11/14/17 07:06 109 19 96 Mechanical Ventilator 100 11/14/17 06:58 95 19 100 11/14/17 05:28 115 22 100 11/14/17 05:24 93 130/70 11/14/17 04:00 94 11/14/17 04:00 98.1 93 18 130/70 97 Mechanical Ventilator 100 98.1 11/14/17 04:00 100 11/14/17 03:25 97 19 100 11/14/17 01:43 103 19 100 11/14/17 00:25 94 121/86 11/14/17 00:00 98.2 94 17 138/80 97 Mechanical Ventilator 100 98.2 11/14/17 00:00 89 11/14/17 00:00 100 11/13/17 23:34 106 19 100 11/13/17 21:25 99.0 11/13/17 20:59 103 18 100 11/13/17 20:55 116 119/86 11/13/17 20:55 100.8 11/13/17 20:00 100.8 116 18 119/86 100 Mechanical Ventilator 100 100.8 11/13/17 20:00 96 11/13/17 20:00 100 General Appearance: on vent, patient on isolation Intake and Output 11/13/17 11/14/17 19:00 07:00 Intake Total 1395.0 ml 592.5 ml Output Total 1050 ml 1250 ml Balance 345.0 ml -657.5 ml IV Total 795.0 ml 142.5 ml Tube Feeding 480 ml 450 ml Other 120 ml Output Urine Total 1000 ml 1200 ml Stool Total 50 ml 50 ml # Bowel Movements 1 Laboratory Tests Test 11/14/17 05:30 White Blood Count 20.2 K/UL (4.8-10.8) H Red Blood Count 2.68 M/UL (4.70-6.10) L Hemoglobin 8.1 G/DL (14.2-18.0) L Hematocrit 24.2 % (42.0-52.0) L Mean Corpuscular Volume 90 FL (80-99) Mean Corpuscular Hemoglobin 30.1 PG (27.0-31.0) Mean Corpuscular Hemoglobin Concent 33.4 G/DL (32.0-36.0) Red Cell Distribution Width 15.6 % (11.6-14.8) H Platelet Count 402 K/UL (150-450) Mean Platelet Volume 5.6 FL (6.5-10.1) L Neutrophils (%) (Auto) % (45.0-75.0) Lymphocytes (%) (Auto) % (20.0-45.0) Monocytes (%) (Auto) % (1.0-10.0) Eosinophils (%) (Auto) % (0.0-3.0) Basophils (%) (Auto) % (0.0-2.0) Differential Total Cells Counted 100 Neutrophils % (Manual) 82 % (45-75) H Lymphocytes % (Manual) 8 % (20-45) L Monocytes % (Manual) 8 % (1-10) Eosinophils % (Manual) 2 % (0-3) Basophils % (Manual) 0 % (0-2) Band Neutrophils 0 % (0-8) Platelet Estimate Adequate Platelet Morphology Normal Hypochromasia 2+ Anisocytosis 1+ Sodium Level 147 MMOL/L (136-145) H Potassium Level 3.4 MMOL/L (3.5-5.1) L Chloride Level 112 MMOL/L (98-107) H Carbon Dioxide Level 26 MMOL/L (21-32) Anion Gap 9 mmol/L (5-15) Blood Urea Nitrogen 32 mg/dL (7-18) H Creatinine 2.3 MG/DL (0.55-1.30) H Estimat Glomerular Filtration Rate 35.3 mL/min (>60) Glucose Level 100 MG/DL (74-106) Uric Acid 6.4 MG/DL (2.6-7.2) Calcium Level 8.3 MG/DL (8.5-10.1) L Phosphorus Level 3.0 MG/DL (2.5-4.9) Magnesium Level 2.0 MG/DL (1.8-2.4) Total Bilirubin 0.7 MG/DL (0.2-1.0) Aspartate Amino Transf (AST/SGOT) 19 U/L (15-37) Alanine Aminotransferase (ALT/SGPT) 20 U/L (12-78) Alkaline Phosphatase 130 U/L (46-116) H Pro-B-Type Natriuretic Peptide 2278 pg/mL (0-125) H Total Protein 6.5 G/DL (6.4-8.2) Albumin 2.2 G/DL (3.4-5.0) L Globulin 4.3 g/dL Albumin/Globulin Ratio 0.5 (1.0-2.7) CHRISTEN CHRISTIE Nov 14, 2017 19:49
[2017-11-14 20:00] VITALS: BP 137/81
[2017-11-14] MEDS: Dyna-Hex 2% Top Sol 2oz TOPIC SCH (20:51)
[2017-11-15] VITALS: BP 156/99
[2017-11-15] MEDS: dilTIAZem HCl 30mg tab GT SCH ×4 (00:57→17:42)
[2017-11-15] MEDS: Levalbuterol Inh UD 1.25mg/0.5ml HHN SCH ×6 (03:26→22:50)
[2017-11-15 04:00] VITALS: BP 166/110
[2017-11-15] MEDS: Metoprolol Tartrate 50mg tab GT SCH ×3 (05:12→21:30)
[2017-11-15] MEDS: Tigecycline 50 MG in D5W 110 ML IVPB SCH ×2 (05:13→17:42)
[2017-11-15 06:31] LABS: HEMATOCRIT 26.2 % (42.0-52.0); HEMOGLOBIN 8.7 G/DL (14.2-18.0); MEAN CORPUSCULAR VOLUME 90 FL (80-99); PLATELET COUNT 451 K/UL (150-450); RED CELL DISTRIBUTION WIDTH 15.5 % (11.6-14.8)
[2017-11-15 06:41] LABS: WHITE BLOOD COUNT 24.2 K/UL (4.8-10.8)
[2017-11-15 07:01] LABS: ALANINE AMINOTRANSFERASE 20 U/L (12-78); ALBUMIN 2.1 G/DL (3.4-5.0); ALBUMIN/GLOBULIN RATIO 0.4 (1.0-2.7); ALKALINE PHOSPHATASE 154 U/L (46-116); ANION GAP 6 mmol/L (5-15); ASPARTATE AMINO TRANSFERASE 18 U/L (15-37); BILIRUBIN,TOTAL 0.5 MG/DL (0.2-1.0); BLOOD UREA NITROGEN 30 mg/dL (7-18); CALCIUM 8.2 MG/DL (8.5-10.1); CARBON DIOXIDE 28 MMOL/L (21-32); CHLORIDE 111 MMOL/L (98-107); CREATININE 1.8 MG/DL (0.55-1.30); PHOSPHORUS 3.2 MG/DL (2.5-4.9); POTASSIUM 3.7 MMOL/L (3.5-5.1); SODIUM 145 MMOL/L (136-145)
[2017-11-15 08:00] VITALS: BP 143/92
[2017-11-15] MEDS: Vancomycin oral 125mg/2.5ml GT SCH ×4 (08:25→21:30)
[2017-11-15] MEDS: Lactobacillus-GG tablet GT SCH ×3 (08:26→17:42)
--- NOTE | 2017-11-15 11:13 | Pulmonolgy Critical Care Note ---
Critical Care - Asmt/Plan Problems: (1) Acute respiratory failure (2) Collapse of right lung (3) Acute renal failure (ARF) (4) Pneumonia (5) Sepsis (6) Epileptic seizure, generalized (7) Feeding by G-tube (8) C. difficile colitis Respiratory: monitor respiratory rate, adjust FIO2, CXR Cardiac: continue to monitor HR/BP Renal: F/U I&O, keep IV fluid, check electrolytes Infectious Disease: check cultures, other - wbc still rising Gastrointestinal: continue feedings/current rate Endocrine: monitor blood sugar, continue sliding scale insulin Hematologic: monitor H/H, transfuse if hgb<8.5 Neurologic: PRN Ativan, PRN Morphine, keep patient comfortable Affect: PRN ativan Prophylaxis: Heparin Disposition: keep in ICU Discussed with: nurses, consultants Critical Care - Objective Last 24 Hour Vital Signs Date Time Temp Pulse Resp B/P (MAP) Pulse Ox O2 Delivery O2 Flow Rate FiO2 11/15/17 08:34 93 23 100 11/15/17 08:00 83 11/15/17 08:00 98.1 85 18 143/92 99 Mechanical Ventilator 100 98.1 11/15/17 07:57 91 23 95 Mechanical Ventilator 100 11/15/17 07:06 85 23 96 Mechanical Ventilator 100 11/15/17 07:05 86 23 100 11/15/17 05:12 96 148/89 11/15/17 05:12 96 148/89 11/15/17 05:04 89 25 100 11/15/17 04:00 98.2 87 19 166/110 98 Mechanical Ventilator 98 98.2 11/15/17 04:00 100 11/15/17 03:54 98 11/15/17 03:35 88 18 98 Mechanical Ventilator 100 11/15/17 03:27 84 21 99 Mechanical Ventilator 100 11/15/17 03:27 84 21 100 11/15/17 01:17 85 18 100 11/15/17 00:57 82 149/98 11/15/17 00:00 100 11/15/17 00:00 97.7 88 22 156/99 100 Mechanical Ventilator 100 97.7 11/15/17 00:00 82 11/14/17 23:39 83 19 96 Mechanical Ventilator 100 11/14/17 23:31 83 19 96 Mechanical Ventilator 100 11/14/17 23:29 83 20 100 11/14/17 21:29 86 22 100 11/14/17 21:02 91 149/98 11/14/17 20:00 100 11/14/17 20:00 98.6 94 21 137/81 100 Mechanical Ventilator 100 98.6 11/14/17 19:54 82 11/14/17 19:23 86 18 99 Mechanical Ventilator 100 11/14/17 19:16 86 18 100 11/14/17 19:16 88 18 98 Mechanical Ventilator 100 11/14/17 17:22 107 150/85 11/14/17 17:06 107 24 100 11/14/17 16:00 100 11/14/17 16:00 99.8 93 16 150/85 100 Mechanical Ventilator 100 99.8 11/14/17 15:26 102 21 99 Mechanical Ventilator 100 11/14/17 15:16 100 21 99 Mechanical Ventilator 100 11/14/17 15:15 100 20 100 11/14/17 15:15 97 11/14/17 14:14 109 20 100 11/14/17 13:10 104 140/88 11/14/17 12:55 104 140/88 11/14/17 12:00 100 11/14/17 12:00 99.3 104 16 140/88 100 Mechanical Ventilator 100 99.3 11/14/17 11:36 102 11/14/17 11:29 100 21 99 Mechanical Ventilator 100 11/14/17 11:18 99 21 99 Mechanical Ventilator 100 Status: awake Condition: critical HEENT: atraumatic Neck: full ROM Lungs: clear Heart: HR/BP stable, HR/BP unstable Abdomen: soft, non-tender Extremities: edema Decubiti: location Critical Care - Subjective ROS Limited/Unobtainable: Yes EKG Rhythm: Sinus Rhythm FI02: 100 Vent Support Breath Rate: 18 Vent Support Mode: AC Vent Tidal Volume: 700 Sputum Amount: Moderate PEEP: 7.0 PIP: 27 Tube Feeding Amount: 50 I&O: Intake and Output 11/14/17 11/15/17 19:00 07:00 Intake Total 2396.86 ml 1110 ml Output Total 1100 ml 1650 ml Balance 1296.86 ml -540 ml Free Water 150 ml IV Total 1676.86 ml 210 ml Tube Feeding 450 ml 600 ml Other 120 ml 300 ml Output Urine Total 1100 ml 1650 ml # Bowel Movements 50 100 CXR: no change ET-Tube: 8.0 ET Position: 24 Labs: Laboratory Tests Test 11/15/17 05:10 White Blood Count 24.2 K/UL (4.8-10.8) *H Red Blood Count 2.90 M/UL (4.70-6.10) L Hemoglobin 8.7 G/DL (14.2-18.0) L Hematocrit 26.2 % (42.0-52.0) L Mean Corpuscular Volume 90 FL (80-99) Mean Corpuscular Hemoglobin 29.9 PG (27.0-31.0) Mean Corpuscular Hemoglobin Concent 33.2 G/DL (32.0-36.0) Red Cell Distribution Width 15.5 % (11.6-14.8) H Platelet Count 451 K/UL (150-450) H Mean Platelet Volume 5.7 FL (6.5-10.1) L Neutrophils (%) (Auto) % (45.0-75.0) Lymphocytes (%) (Auto) % (20.0-45.0) Monocytes (%) (Auto) % (1.0-10.0) Eosinophils (%) (Auto) % (0.0-3.0) Basophils (%) (Auto) % (0.0-2.0) Neutrophils % (Manual) Pending Lymphocytes % (Manual) Pending Platelet Estimate Pending Platelet Morphology Pending Sodium Level 145 MMOL/L (136-145) Potassium Level 3.7 MMOL/L (3.5-5.1) Chloride Level 111 MMOL/L (98-107) H Carbon Dioxide Level 28 MMOL/L (21-32) Anion Gap 6 mmol/L (5-15) Blood Urea Nitrogen 30 mg/dL (7-18) H Creatinine 1.8 MG/DL (0.55-1.30) H Estimat Glomerular Filtration Rate 46.8 mL/min (>60) Glucose Level 108 MG/DL (74-106) H Calcium Level 8.2 MG/DL (8.5-10.1) L Phosphorus Level 3.2 MG/DL (2.5-4.9) Magnesium Level 1.6 MG/DL (1.8-2.4) L Total Bilirubin 0.5 MG/DL (0.2-1.0) Aspartate Amino Transf (AST/SGOT) 18 U/L (15-37) Alanine Aminotransferase (ALT/SGPT) 20 U/L (12-78) Alkaline Phosphatase 154 U/L (46-116) H Total Protein 6.8 G/DL (6.4-8.2) Albumin 2.1 G/DL (3.4-5.0) L Globulin 4.7 g/dL Albumin/Globulin Ratio 0.4 (1.0-2.7) L EDDIE COLES Nov 15, 2017 11:13
[2017-11-15 12:00] VITALS: BP 153/98
--- NOTE | 2017-11-15 12:02 | GI Progress Note ---
Assessment/Plan Problems: (1) Dysphagia ICD Codes: R13.10 - Dysphagia, unspecified SNOMED: 43856346, 297302132 (2) Dementia ICD Codes: F03.90 - Unspecified dementia without behavioral disturbance SNOMED: 84457934 (3) PEG (percutaneous endoscopic gastrostomy) adjustment/replacement/removal ICD Codes: Z43.1 - Encounter for attention to gastrostomy SNOMED: 412180570, 551262772 (4) CVA, old, hemiparesis ICD Codes: I69.359 - Hemiplegia and hemiparesis following cerebral infarction affecting unspecified side SNOMED: 92184002, 56721245, [id number] Status: unchanged Status Narrative Discussed with Dr. Campos. Assessment/Plan s/p EGD and hemostasis cdiff positive >> dc ppi, H2B BID gastric lavage performed by RN with no evidence of gastric bleed monitor H&H, prn transfusion cont GTFs per RD GT site care BID/prn abx poor prognosis fu labs Subjective Subjective limited Objective Last 24 Hour Vital Signs Date Time Temp Pulse Resp B/P (MAP) Pulse Ox O2 Delivery O2 Flow Rate FiO2 11/15/17 11:54 96 143/92 11/15/17 11:23 96 21 99 Mechanical Ventilator 100 11/15/17 11:16 97 25 100 11/15/17 08:34 93 23 100 11/15/17 08:00 83 11/15/17 08:00 100 11/15/17 08:00 98.1 85 18 143/92 99 Mechanical Ventilator 100 98.1 11/15/17 07:57 91 23 95 Mechanical Ventilator 100 11/15/17 07:06 85 23 96 Mechanical Ventilator 100 11/15/17 07:05 86 23 100 11/15/17 05:12 96 148/89 11/15/17 05:12 96 148/89 11/15/17 05:04 89 25 100 11/15/17 04:00 98.2 87 19 166/110 98 Mechanical Ventilator 98 98.2 11/15/17 04:00 100 11/15/17 03:54 98 11/15/17 03:35 88 18 98 Mechanical Ventilator 100 11/15/17 03:27 84 21 99 Mechanical Ventilator 100 11/15/17 03:27 84 21 100 11/15/17 01:17 85 18 100 11/15/17 00:57 82 149/98 11/15/17 00:00 100 11/15/17 00:00 97.7 88 22 156/99 100 Mechanical Ventilator 100 97.7 11/15/17 00:00 82 11/14/17 23:39 83 19 96 Mechanical Ventilator 100 11/14/17 23:31 83 19 96 Mechanical Ventilator 100 11/14/17 23:29 83 20 100 11/14/17 21:29 86 22 100 11/14/17 21:02 91 149/98 11/14/17 20:00 100 11/14/17 20:00 98.6 94 21 137/81 100 Mechanical Ventilator 100 98.6 11/14/17 19:54 82 11/14/17 19:23 86 18 99 Mechanical Ventilator 100 11/14/17 19:16 86 18 100 11/14/17 19:16 88 18 98 Mechanical Ventilator 100 11/14/17 17:22 107 150/85 11/14/17 17:06 107 24 100 11/14/17 16:00 100 11/14/17 16:00 99.8 93 16 150/85 100 Mechanical Ventilator 100 99.8 11/14/17 15:26 102 21 99 Mechanical Ventilator 100 11/14/17 15:16 100 21 99 Mechanical Ventilator 100 11/14/17 15:15 100 20 100 11/14/17 15:15 97 11/14/17 14:14 109 20 100 11/14/17 13:10 104 140/88 11/14/17 12:55 104 140/88 Intake and Output 11/14/17 11/15/17 19:00 07:00 Intake Total 2396.86 ml 1110 ml Output Total 1100 ml 1650 ml Balance 1296.86 ml -540 ml Free Water 150 ml IV Total 1676.86 ml 210 ml Tube Feeding 450 ml 600 ml Other 120 ml 300 ml Output Urine Total 1100 ml 1650 ml # Bowel Movements 50 100 Laboratory Tests Test 11/15/17 05:10 White Blood Count 24.2 K/UL (4.8-10.8) *H Red Blood Count 2.90 M/UL (4.70-6.10) L Hemoglobin 8.7 G/DL (14.2-18.0) L Hematocrit 26.2 % (42.0-52.0) L Mean Corpuscular Volume 90 FL (80-99) Mean Corpuscular Hemoglobin 29.9 PG (27.0-31.0) Mean Corpuscular Hemoglobin Concent 33.2 G/DL (32.0-36.0) Red Cell Distribution Width 15.5 % (11.6-14.8) H Platelet Count 451 K/UL (150-450) H Mean Platelet Volume 5.7 FL (6.5-10.1) L Neutrophils (%) (Auto) % (45.0-75.0) Lymphocytes (%) (Auto) % (20.0-45.0) Monocytes (%) (Auto) % (1.0-10.0) Eosinophils (%) (Auto) % (0.0-3.0) Basophils (%) (Auto) % (0.0-2.0) Neutrophils % (Manual) Pending Lymphocytes % (Manual) Pending Platelet Estimate Pending Platelet Morphology Pending Sodium Level 145 MMOL/L (136-145) Potassium Level 3.7 MMOL/L (3.5-5.1) Chloride Level 111 MMOL/L (98-107) H Carbon Dioxide Level 28 MMOL/L (21-32) Anion Gap 6 mmol/L (5-15) Blood Urea Nitrogen 30 mg/dL (7-18) H Creatinine 1.8 MG/DL (0.55-1.30) H Estimat Glomerular Filtration Rate 46.8 mL/min (>60) Glucose Level 108 MG/DL (74-106) H Calcium Level 8.2 MG/DL (8.5-10.1) L Phosphorus Level 3.2 MG/DL (2.5-4.9) Magnesium Level 1.6 MG/DL (1.8-2.4) L Total Bilirubin 0.5 MG/DL (0.2-1.0) Aspartate Amino Transf (AST/SGOT) 18 U/L (15-37) Alanine Aminotransferase (ALT/SGPT) 20 U/L (12-78) Alkaline Phosphatase 154 U/L (46-116) H Total Protein 6.8 G/DL (6.4-8.2) Albumin 2.1 G/DL (3.4-5.0) L Globulin 4.7 g/dL Albumin/Globulin Ratio 0.4 (1.0-2.7) L Height (Feet): 5 Height (Inches): 6.00 Weight (Pounds): 212 General Appearance: WD/WN, no apparent distress, alert Cardiovascular: normal rate Respiratory/Chest: normal breath sounds, no respiratory distress Abdominal Exam: normal bowel sounds, non tender, soft, GT site - dressing chnaged Extremities: non-tender Laura Lucas N.P. Nov 15, 2017 12:01
--- NOTE | 2017-11-15 12:03 | Nephrology Progress Note ---
Assessment/Plan Problem List: (1) Acute renal failure (ARF) Assessment: resolving (2) Respiratory failure (3) Shock liver Assessment Cr lowering JULIA , due to Shock , Hemorrhagic / Septic / C dif colitis worsenning anemia Off Pressors- Shock liver resolving High Troponin: MO Bradycardic - Vfib cardiac arrest 10/26 likely 2ry to hemorrhagic shock (drop Hgb 10.8 to 5) - GIB- Fever, ongoing Leukocytosis, worsening after code E.coli UTI w/ bacteremia Acute hypoxic resp failure- s/p Trach . Plan Plan: dialyse 11/10 next ? ? does not need any more- K supplement as needed on cardiazem Per ID has new cath right chest will plan to removed K IV as needed right groin cath removed being transfused add Renvela and Lactobacillus BP stablized start GT feeding HD trial as needed- on C dif treatment protocol monitor urine out put and Renal parameters discussed with RN Subjective ROS Limited/Unobtainable: No Constitutional: Reports: malaise Objective Objective Last 24 Hour Vital Signs Date Time Temp Pulse Resp B/P (MAP) Pulse Ox O2 Delivery O2 Flow Rate FiO2 11/15/17 11:54 96 143/92 11/15/17 11:23 96 21 99 Mechanical Ventilator 100 11/15/17 11:16 97 25 100 11/15/17 08:34 93 23 100 11/15/17 08:00 83 11/15/17 08:00 100 11/15/17 08:00 98.1 85 18 143/92 99 Mechanical Ventilator 100 98.1 11/15/17 07:57 91 23 95 Mechanical Ventilator 100 11/15/17 07:06 85 23 96 Mechanical Ventilator 100 11/15/17 07:05 86 23 100 11/15/17 05:12 96 148/89 11/15/17 05:12 96 148/89 11/15/17 05:04 89 25 100 11/15/17 04:00 98.2 87 19 166/110 98 Mechanical Ventilator 98 98.2 11/15/17 04:00 100 11/15/17 03:54 98 11/15/17 03:35 88 18 98 Mechanical Ventilator 100 11/15/17 03:27 84 21 99 Mechanical Ventilator 100 11/15/17 03:27 84 21 100 11/15/17 01:17 85 18 100 11/15/17 00:57 82 149/98 11/15/17 00:00 100 11/15/17 00:00 97.7 88 22 156/99 100 Mechanical Ventilator 100 97.7 11/15/17 00:00 82 11/14/17 23:39 83 19 96 Mechanical Ventilator 100 11/14/17 23:31 83 19 96 Mechanical Ventilator 100 11/14/17 23:29 83 20 100 11/14/17 21:29 86 22 100 11/14/17 21:02 91 149/98 11/14/17 20:00 100 11/14/17 20:00 98.6 94 21 137/81 100 Mechanical Ventilator 100 98.6 11/14/17 19:54 82 11/14/17 19:23 86 18 99 Mechanical Ventilator 100 11/14/17 19:16 86 18 100 11/14/17 19:16 88 18 98 Mechanical Ventilator 100 11/14/17 17:22 107 150/85 11/14/17 17:06 107 24 100 11/14/17 16:00 100 11/14/17 16:00 99.8 93 16 150/85 100 Mechanical Ventilator 100 99.8 11/14/17 15:26 102 21 99 Mechanical Ventilator 100 11/14/17 15:16 100 21 99 Mechanical Ventilator 100 11/14/17 15:15 100 20 100 11/14/17 15:15 97 11/14/17 14:14 109 20 100 11/14/17 13:10 104 140/88 11/14/17 12:55 104 140/88 Intake and Output 11/14/17 11/15/17 19:00 07:00 Intake Total 2396.86 ml 1110 ml Output Total 1100 ml 1650 ml Balance 1296.86 ml -540 ml Free Water 150 ml IV Total 1676.86 ml 210 ml Tube Feeding 450 ml 600 ml Other 120 ml 300 ml Output Urine Total 1100 ml 1650 ml # Bowel Movements 50 100 Laboratory Tests 11/15/17 05:10: White Blood Count 24.2*H, Red Blood Count 2.90L, Hemoglobin 8.7L, Hematocrit 26.2L, Mean Corpuscular Volume 90, Mean Corpuscular Hemoglobin 29.9, Mean Corpuscular Hemoglobin Concent 33.2, Red Cell Distribution Width 15.5H, Platelet Count 451H, Mean Platelet Volume 5.7L, Neutrophils (%) (Auto) , Lymphocytes (%) (Auto) , Monocytes (%) (Auto) , Eosinophils (%) (Auto) , Basophils (%) (Auto) , Neutrophils % (Manual) [Pending], Lymphocytes % (Manual) [Pending], Platelet Estimate [Pending], Platelet Morphology [Pending], Sodium Level 145, Potassium Level 3.7, Chloride Level 111H, Carbon Dioxide Level 28, Anion Gap 6, Blood Urea Nitrogen 30H, Creatinine 1.8H, Estimat Glomerular Filtration Rate 46.8, Glucose Level 108H, Calcium Level 8.2L, Phosphorus Level 3.2, Magnesium Level 1.6L, Total Bilirubin 0.5, Aspartate Amino Transf (AST/SGOT ) 18, Alanine Aminotransferase (ALT/SGPT) 20, Alkaline Phosphatase 154H, Total Protein 6.8, Albumin 2.1L, Globulin 4.7, Albumin/Globulin Ratio 0.4L Height (Feet): 5 Height (Inches): 6.00 Weight (Pounds): 212 General Appearance: no apparent distress Objective no other change YVES SINHA Nov 15, 2017 12:03
[2017-11-15 16:00] VITALS: BP 102/60
--- NOTE | 2017-11-15 19:37 | Cardiology Progress Note ---
Assessment/Plan Assessment/Plan 1. Cardiopulmonary arrest on three separate occasions. 2. Massive gastrointestinal bleed. 3. Encephalopathy. 4. Abnormal liver function tests, likely shock liver. 5. Acute renal failure. 6. Anemia. 7. NSTEMI type2 related to cardiopulmonary resuscitation and renal insufficiency. 8. Chronic respiratory failure. 9. History of cerebrovascular accident. 10. c diff 11. htn onthe vent dialysis per dr wang tele sinus still bp is lower remain on high lisa oxygen off norvasc Subjective ROS Limited/Unobtainable: Yes Subjective on the vent Objective Last 24 Hour Vital Signs Date Time Temp Pulse Resp B/P (MAP) Pulse Ox O2 Delivery O2 Flow Rate FiO2 11/15/17 19:05 105 22 98 Mechanical Ventilator 100 11/15/17 18:56 111 28 100 11/15/17 18:56 111 28 95 Mechanical Ventilator 100 11/15/17 17:42 99 102/60 11/15/17 17:38 99 22 100 11/15/17 16:00 97.8 120 19 102/60 95 Mechanical Ventilator 100 97.8 11/15/17 16:00 100 11/15/17 16:00 87 11/15/17 15:40 84 22 100 Mechanical Ventilator 100 11/15/17 15:17 90 21 90 Mechanical Ventilator 100 11/15/17 15:14 90 24 100 11/15/17 13:24 101 145/97 11/15/17 12:46 102 23 100 11/15/17 12:11 93 22 97 Mechanical Ventilator 100 11/15/17 12:00 98.0 99 24 153/98 98 Mechanical Ventilator 100 98.0 11/15/17 12:00 100 11/15/17 12:00 95 11/15/17 11:54 96 143/92 11/15/17 11:23 96 21 99 Mechanical Ventilator 100 11/15/17 11:16 97 25 100 11/15/17 08:34 93 23 100 11/15/17 08:00 83 11/15/17 08:00 100 11/15/17 08:00 98.1 85 18 143/92 99 Mechanical Ventilator 100 98.1 11/15/17 07:57 91 23 95 Mechanical Ventilator 100 11/15/17 07:06 85 23 96 Mechanical Ventilator 100 11/15/17 07:05 86 23 100 11/15/17 05:12 96 148/89 11/15/17 05:12 96 148/89 11/15/17 05:04 89 25 100 11/15/17 04:00 98.2 87 19 166/110 98 Mechanical Ventilator 98 98.2 11/15/17 04:00 100 11/15/17 03:54 98 11/15/17 03:35 88 18 98 Mechanical Ventilator 100 11/15/17 03:27 84 21 99 Mechanical Ventilator 100 11/15/17 03:27 84 21 100 11/15/17 01:17 85 18 100 11/15/17 00:57 82 149/98 11/15/17 00:00 100 11/15/17 00:00 97.7 88 22 156/99 100 Mechanical Ventilator 100 97.7 11/15/17 00:00 82 11/14/17 23:39 83 19 96 Mechanical Ventilator 100 11/14/17 23:31 83 19 96 Mechanical Ventilator 100 11/14/17 23:29 83 20 100 11/14/17 21:29 86 22 100 11/14/17 21:02 91 149/98 11/14/17 20:00 100 11/14/17 20:00 98.6 94 21 137/81 100 Mechanical Ventilator 100 98.6 11/14/17 19:54 82 General Appearance: no apparent distress, on vent, patient on isolation Intake and Output 11/14/17 11/15/17 19:00 07:00 Intake Total 2396.86 ml 1110 ml Output Total 1100 ml 1650 ml Balance 1296.86 ml -540 ml Free Water 150 ml IV Total 1676.86 ml 210 ml Tube Feeding 450 ml 600 ml Other 120 ml 300 ml Output Urine Total 1100 ml 1650 ml # Bowel Movements 50 100 Laboratory Tests Test 11/15/17 05:10 White Blood Count 24.2 K/UL (4.8-10.8) *H Red Blood Count 2.90 M/UL (4.70-6.10) L Hemoglobin 8.7 G/DL (14.2-18.0) L Hematocrit 26.2 % (42.0-52.0) L Mean Corpuscular Volume 90 FL (80-99) Mean Corpuscular Hemoglobin 29.9 PG (27.0-31.0) Mean Corpuscular Hemoglobin Concent 33.2 G/DL (32.0-36.0) Red Cell Distribution Width 15.5 % (11.6-14.8) H Platelet Count 451 K/UL (150-450) H Mean Platelet Volume 5.7 FL (6.5-10.1) L Neutrophils (%) (Auto) % (45.0-75.0) Lymphocytes (%) (Auto) % (20.0-45.0) Monocytes (%) (Auto) % (1.0-10.0) Eosinophils (%) (Auto) % (0.0-3.0) Basophils (%) (Auto) % (0.0-2.0) Differential Total Cells Counted 100 Neutrophils % (Manual) 84 % (45-75) H Lymphocytes % (Manual) 6 % (20-45) L Monocytes % (Manual) 9 % (1-10) Eosinophils % (Manual) 1 % (0-3) Basophils % (Manual) 0 % (0-2) Band Neutrophils 0 % (0-8) Platelet Estimate Increased H Platelet Morphology Normal Hypochromasia 1+ Anisocytosis 1+ Sodium Level 145 MMOL/L (136-145) Potassium Level 3.7 MMOL/L (3.5-5.1) Chloride Level 111 MMOL/L (98-107) H Carbon Dioxide Level 28 MMOL/L (21-32) Anion Gap 6 mmol/L (5-15) Blood Urea Nitrogen 30 mg/dL (7-18) H Creatinine 1.8 MG/DL (0.55-1.30) H Estimat Glomerular Filtration Rate 46.8 mL/min (>60) Glucose Level 108 MG/DL (74-106) H Calcium Level 8.2 MG/DL (8.5-10.1) L Phosphorus Level 3.2 MG/DL (2.5-4.9) Magnesium Level 1.6 MG/DL (1.8-2.4) L Total Bilirubin 0.5 MG/DL (0.2-1.0) Aspartate Amino Transf (AST/SGOT) 18 U/L (15-37) Alanine Aminotransferase (ALT/SGPT) 20 U/L (12-78) Alkaline Phosphatase 154 U/L (46-116) H Total Protein 6.8 G/DL (6.4-8.2) Albumin 2.1 G/DL (3.4-5.0) L Globulin 4.7 g/dL Albumin/Globulin Ratio 0.4 (1.0-2.7) L CHRISTEN LOVE Nov 15, 2017 19:37
[2017-11-15 20:00] VITALS: BP 150/98
--- NOTE | 2017-11-15 20:02 | Infectious Diseases Prog Note ---
Assessment/Plan Assessment/Plan A C Diff +ve, diarrhea mild improvement Fever, SP Leukocytosis,persistent -CXR: 10/30 : Slightly increased hazy opacity left lung base and obscuration of left hemidiaphragm, may reflect increased infiltrates and/or pleural fluid E.coli UTI w/ bacteremia ; s/p Rx -REnal US: Limited exam. No definite hydronephrosis. Empty bladder, containing a Cervantes catheter. Suspicion for Flu despite rapid test (+URI symptoms, sick contacts); s/p Rx ? Pneum 10/15 CXR : Increased left pleural fluid and and left basilar atelectasis. Ro Cholecystitis CT and US : Gallbladder wall edema nonspecific in nature - HIDA aborted midway, pt become unstable Acute hypoxic resp failure- intubated (10/20) , SP Trach 10/23 12/18 KUB : Distended small bowel. Ileus versus obstruction. SP cardiac arrest 10/26 SP hemorrhagic shock (drop Hgb 10.8 to 5)- 10/12 GIB- transaminitis due to shock improving JULIA on HD , HD cath Lactic acidosis, resolved UGI bleed / Anemia SP EGD 10/18 and 10/26 Path: H Pylori Neg CVA with hemiplegia HTN cataract dysphagia Hx of fall CAD/NV CVA/TIA dementia seizure disorder Plan: -Continue oral Vanco d# , add Tygacil d# ( Coverage of C Diff and probable Cholecystitis ) ,Dificid d# , DC Flagyl d# 20 10/30 SP Meropenem d# 5 - 10/29 SP IV Vanco # 10 - 10/26 SP Zosyn #6 - 10/21 SP Ceftriaxone 2 g qd d# 11 - 10/17 SP empiric Tamiflu #6/5 -10/15 SP IV Vancomcyin #5, Meropenm #3 -2/3 SP Cefepime #3 -Monitor CBC/BMP, temperatures; -aspiration precautions - vent Support - repeat Cx if WBG does not improve Subjective Allergies: Uncoded Allergies: TAPE (Adverse Reaction, Mild, 11/09/17) REDNESS AT TAPE SITE WHEN APPLIED TAPE All Systems: reviewed and negative except above Subjective Diarrhea Objective Vital Signs Last 24 Hour Vital Signs Date Time Temp Pulse Resp B/P (MAP) Pulse Ox O2 Delivery O2 Flow Rate FiO2 11/15/17 19:05 105 22 98 Mechanical Ventilator 100 11/15/17 18:56 111 28 100 11/15/17 18:56 111 28 95 Mechanical Ventilator 100 11/15/17 17:42 99 102/60 11/15/17 17:38 99 22 100 11/15/17 16:00 97.8 120 19 102/60 95 Mechanical Ventilator 100 97.8 11/15/17 16:00 100 11/15/17 16:00 87 11/15/17 15:40 84 22 100 Mechanical Ventilator 100 11/15/17 15:17 90 21 90 Mechanical Ventilator 100 11/15/17 15:14 90 24 100 11/15/17 13:24 101 145/97 11/15/17 12:46 102 23 100 11/15/17 12:11 93 22 97 Mechanical Ventilator 100 11/15/17 12:00 98.0 99 24 153/98 98 Mechanical Ventilator 100 98.0 11/15/17 12:00 100 11/15/17 12:00 95 11/15/17 11:54 96 143/92 11/15/17 11:23 96 21 99 Mechanical Ventilator 100 11/15/17 11:16 97 25 100 11/15/17 08:34 93 23 100 11/15/17 08:00 83 11/15/17 08:00 100 11/15/17 08:00 98.1 85 18 143/92 99 Mechanical Ventilator 100 98.1 11/15/17 07:57 91 23 95 Mechanical Ventilator 100 11/15/17 07:06 85 23 96 Mechanical Ventilator 100 11/15/17 07:05 86 23 100 11/15/17 05:12 96 148/89 11/15/17 05:12 96 148/89 11/15/17 05:04 89 25 100 11/15/17 04:00 98.2 87 19 166/110 98 Mechanical Ventilator 98 98.2 11/15/17 04:00 100 11/15/17 03:54 98 11/15/17 03:35 88 18 98 Mechanical Ventilator 100 11/15/17 03:27 84 21 99 Mechanical Ventilator 100 11/15/17 03:27 84 21 100 11/15/17 01:17 85 18 100 11/15/17 00:57 82 149/98 11/15/17 00:00 100 11/15/17 00:00 97.7 88 22 156/99 100 Mechanical Ventilator 100 97.7 11/15/17 00:00 82 11/14/17 23:39 83 19 96 Mechanical Ventilator 100 11/14/17 23:31 83 19 96 Mechanical Ventilator 100 11/14/17 23:29 83 20 100 11/14/17 21:29 86 22 100 11/14/17 21:02 91 149/98 11/14/17 20:00 100 11/14/17 20:00 98.6 94 21 137/81 100 Mechanical Ventilator 100 98.6 Height (Feet): 5 Height (Inches): 6.00 Weight (Pounds): 212 HEENT: mucous membranes moist Respiratory/Chest: no respiratory distress Cardiovascular: regular rhythm Abdomen: no organomegaly Laboratory Tests Test 11/15/17 05:10 White Blood Count 24.2 K/UL (4.8-10.8) *H Red Blood Count 2.90 M/UL (4.70-6.10) L Hemoglobin 8.7 G/DL (14.2-18.0) L Hematocrit 26.2 % (42.0-52.0) L Mean Corpuscular Volume 90 FL (80-99) Mean Corpuscular Hemoglobin 29.9 PG (27.0-31.0) Mean Corpuscular Hemoglobin Concent 33.2 G/DL (32.0-36.0) Red Cell Distribution Width 15.5 % (11.6-14.8) H Platelet Count 451 K/UL (150-450) H Mean Platelet Volume 5.7 FL (6.5-10.1) L Neutrophils (%) (Auto) % (45.0-75.0) Lymphocytes (%) (Auto) % (20.0-45.0) Monocytes (%) (Auto) % (1.0-10.0) Eosinophils (%) (Auto) % (0.0-3.0) Basophils (%) (Auto) % (0.0-2.0) Differential Total Cells Counted 100 Neutrophils % (Manual) 84 % (45-75) H Lymphocytes % (Manual) 6 % (20-45) L Monocytes % (Manual) 9 % (1-10) Eosinophils % (Manual) 1 % (0-3) Basophils % (Manual) 0 % (0-2) Band Neutrophils 0 % (0-8) Platelet Estimate Increased H Platelet Morphology Normal Hypochromasia 1+ Anisocytosis 1+ Sodium Level 145 MMOL/L (136-145) Potassium Level 3.7 MMOL/L (3.5-5.1) Chloride Level 111 MMOL/L (98-107) H Carbon Dioxide Level 28 MMOL/L (21-32) Anion Gap 6 mmol/L (5-15) Blood Urea Nitrogen 30 mg/dL (7-18) H Creatinine 1.8 MG/DL (0.55-1.30) H Estimat Glomerular Filtration Rate 46.8 mL/min (>60) Glucose Level 108 MG/DL (74-106) H Calcium Level 8.2 MG/DL (8.5-10.1) L Phosphorus Level 3.2 MG/DL (2.5-4.9) Magnesium Level 1.6 MG/DL (1.8-2.4) L Total Bilirubin 0.5 MG/DL (0.2-1.0) Aspartate Amino Transf (AST/SGOT) 18 U/L (15-37) Alanine Aminotransferase (ALT/SGPT) 20 U/L (12-78) Alkaline Phosphatase 154 U/L (46-116) H Total Protein 6.8 G/DL (6.4-8.2) Albumin 2.1 G/DL (3.4-5.0) L Globulin 4.7 g/dL Albumin/Globulin Ratio 0.4 (1.0-2.7) L Current Medications Medications (Trade) Dose Ordered Sig/Olvin Route PRN Reason Start Time Stop Time Status Last Admin Dose Admin Acetaminophen (Tylenol) 650 mg Q4H PRN RECTAL Mild Pain (Pain Scale 1-3) 10/30/17 21:00 11/20/17 20:59 11/13/17 20:55 Albuterol/ Ipratropium (Albuterol/ Ipratropium) 3 ml Q4HRT PRN HHN sob 11/10/17 14:45 11/15/17 23:59 11/12/17 22:51 Chlorhexidine Gluconate (Pamela-Hex 2%) 1 applic DAILY@2000 TOPIC 10/31/17 22:00 11/23/17 21:59 11/14/17 20:51 Diltiazem HCl (Cardizem) 30 mg EVERY 6 HOURS GT 11/13/17 18:00 12/12/17 13:59 11/15/17 11:54 Famotidine (Pepcid) 20 mg BID GT 11/14/17 18:00 12/14/17 17:59 11/15/17 17:42 Fidaxomicin (Dificid) 200 mg EVERY 12 HOURS ORAL 11/15/17 12:00 11/24/17 21:01 11/15/17 11:53 Lactobacillus Acidophilus (Culturelle) 1 tab THREE TIMES A DAY GT 11/03/17 13:00 12/03/17 12:59 11/15/17 17:42 Levalbuterol HCl (Xopenex) 1.25 mg Q4HRT HHN 11/14/17 11:00 11/19/17 10:59 11/15/17 18:56 Lorazepam (Ativan 2mg/ml 1ml) 2 mg Q4H PRN IV For Anxiety 11/10/17 16:45 11/17/17 23:59 11/10/17 18:42 Metoclopramide HCl (Reglan) 5 mg Q6H PRN GT Irrectractable Nausea/Vomiting 10/30/17 21:00 11/29/17 20:59 11/12/17 09:32 Metoprolol Tartrate (Lopressor) 50 mg Q8HR GT 11/14/17 14:00 12/13/17 20:59 11/15/17 13:24 Ondansetron HCl (Zofran) 4 mg Q6H PRN IVP Nausea & Vomiting 10/30/17 21:00 11/29/17 20:59 Tigecycline 50 mg/ Dextrose 110 ml @ 220 mls/hr Q12HR@0500,1700 IVPB 11/12/17 05:00 11/19/17 04:59 11/15/17 17:42 Vancomycin HCl (Vancomycin) 125 mg FOUR TIMES A DAY GT 11/11/17 21:00 11/18/17 20:59 11/15/17 17:41 FAUSTINO AGARWAL M.D. Nov 15, 2017 20:02
[2017-11-15] MEDS: Dyna-Hex 2% Top Sol 2oz TOPIC SCH (21:10)
[2017-11-16] VITALS: BP 150/96
[2017-11-16] MEDS: dilTIAZem HCl 30mg tab GT SCH ×4 (00:47→17:07)
[2017-11-16] MEDS: Levalbuterol Inh UD 1.25mg/0.5ml HHN SCH ×6 (02:43→23:00)
[2017-11-16 04:00] VITALS: BP 155/96
[2017-11-16] MEDS: Tigecycline 50 MG in D5W 110 ML IVPB SCH ×2 (05:32→17:09)
[2017-11-16] MEDS: Metoprolol Tartrate 50mg tab GT SCH ×3 (05:32→20:29)
[2017-11-16 05:52] LABS: HEMATOCRIT 25.6 % (42.0-52.0); HEMOGLOBIN 8.5 G/DL (14.2-18.0); MEAN CORPUSCULAR VOLUME 90 FL (80-99); PLATELET COUNT 471 K/UL (150-450); RED BLOOD COUNT 2.86 M/UL (4.70-6.10); RED CELL DISTRIBUTION WIDTH 14.8 % (11.6-14.8)
[2017-11-16 06:15] LABS: ALANINE AMINOTRANSFERASE 17 U/L (12-78); ALBUMIN 1.9 G/DL (3.4-5.0); ALBUMIN/GLOBULIN RATIO 0.4 (1.0-2.7); ALKALINE PHOSPHATASE 154 U/L (46-116); ANION GAP 8 mmol/L (5-15); ASPARTATE AMINO TRANSFERASE 19 U/L (15-37); BILIRUBIN,TOTAL 0.7 MG/DL (0.2-1.0); BLOOD UREA NITROGEN 33 mg/dL (7-18); CALCIUM 8.3 MG/DL (8.5-10.1); CARBON DIOXIDE 27 MMOL/L (21-32); CHLORIDE 113 MMOL/L (98-107); CREATININE 1.6 MG/DL (0.55-1.30); PHOSPHORUS 3.2 MG/DL (2.5-4.9); POTASSIUM 3.5 MMOL/L (3.5-5.1); SODIUM 148 MMOL/L (136-145)
[2017-11-16 06:38] LABS: WHITE BLOOD COUNT 25.9 K/UL (4.8-10.8)
[2017-11-16 08:00] VITALS: BP 147/94
[2017-11-16] MEDS: Lactobacillus-GG tablet GT SCH ×3 (08:17→17:07)
[2017-11-16] MEDS: Vancomycin oral 125mg/2.5ml GT SCH ×4 (08:17→20:28)
--- NOTE | 2017-11-16 10:52 | Pulmonolgy Critical Care Note ---
Critical Care - Asmt/Plan Problems: (1) Acute respiratory failure (2) Collapse of right lung (3) Acute renal failure (ARF) (4) Pneumonia (5) Sepsis (6) Epileptic seizure, generalized (7) Feeding by G-tube (8) C. 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 - Objective Last 24 Hour Vital Signs Date Time Temp Pulse Resp B/P (MAP) Pulse Ox O2 Delivery O2 Flow Rate FiO2 11/16/17 09:29 91 25 100 11/16/17 08:00 100 11/16/17 08:00 98.4 90 32 147/94 92 Mechanical Ventilator 100 98.4 11/16/17 07:34 88 11/16/17 07:33 93 19 98 Mechanical Ventilator 100 11/16/17 07:28 91 19 100 11/16/17 07:27 91 19 95 Mechanical Ventilator 100 11/16/17 05:32 101 155/96 11/16/17 05:32 101 155/96 11/16/17 05:16 104 23 100 11/16/17 04:00 99.0 101 27 155/96 96 Mechanical Ventilator 100 99.0 11/16/17 04:00 106 11/16/17 04:00 100 11/16/17 02:52 102 19 99 Mechanical Ventilator 95 11/16/17 02:45 104 20 100 11/16/17 02:44 104 21 99 Mechanical Ventilator 100 11/16/17 01:03 99 26 100 11/16/17 00:47 95 150/96 11/16/17 00:00 99.7 95 27 150/96 96 Mechanical Ventilator 100 99.7 11/15/17 22:56 100 19 100 Mechanical Ventilator 95 11/15/17 22:50 103 22 100 Mechanical Ventilator 100 11/15/17 22:50 103 22 100 11/15/17 21:30 100 150/98 11/15/17 20:40 100 21 100 11/15/17 20:00 99.7 108 27 150/98 96 Mechanical Ventilator 100 99.7 11/15/17 20:00 106 11/15/17 20:00 100 11/15/17 19:05 105 22 98 Mechanical Ventilator 100 11/15/17 18:56 111 28 100 11/15/17 18:56 111 28 95 Mechanical Ventilator 100 11/15/17 17:42 99 102/60 11/15/17 17:38 99 22 100 11/15/17 16:00 97.8 120 19 102/60 95 Mechanical Ventilator 100 97.8 11/15/17 16:00 100 11/15/17 16:00 87 11/15/17 15:40 84 22 100 Mechanical Ventilator 100 11/15/17 15:17 90 21 90 Mechanical Ventilator 100 11/15/17 15:14 90 24 100 11/15/17 13:24 101 145/97 11/15/17 12:46 102 23 100 11/15/17 12:11 93 22 97 Mechanical Ventilator 100 11/15/17 12:00 98.0 99 24 153/98 98 Mechanical Ventilator 100 98.0 11/15/17 12:00 100 11/15/17 12:00 95 11/15/17 11:54 96 143/92 11/15/17 11:23 96 21 99 Mechanical Ventilator 100 11/15/17 11:16 97 25 100 Status: awake Condition: critical HEENT: atraumatic Neck: full ROM Lungs: clear, chest wall tender Heart: HR/BP stable, HR/BP unstable Abdomen: non-tender, active bowel sounds Extremities: edema Decubiti: location, stage Critical Care - Subjective ROS Limited/Unobtainable: Yes EKG Rhythm: Sinus Bradycardia FI02: 100 Vent Support Breath Rate: 18 Vent Support Mode: AC Vent Tidal Volume: 700 Sputum Amount: Moderate PEEP: 7.0 PIP: 36 Tube Feeding Amount: 50 I&O: Intake and Output 11/15/17 11/16/17 19:00 07:00 Intake Total 600 ml 710 ml Output Total 950 ml 1245 ml Balance -350 ml -535 ml Free Water 30 ml 90 ml IV Total 110 ml 110 ml Tube Feeding 400 ml 450 ml Other 60 ml 60 ml Output Urine Total 750 ml 1200 ml Stool Total 200 ml 45 ml CXR: trach intract ET-Tube: 8.0 ET Position: 24 Labs: Laboratory Tests Test 11/16/17 04:00 White Blood Count 25.9 K/UL (4.8-10.8) *H Red Blood Count 2.86 M/UL (4.70-6.10) L Hemoglobin 8.5 G/DL (14.2-18.0) L Hematocrit 25.6 % (42.0-52.0) L Mean Corpuscular Volume 90 FL (80-99) Mean Corpuscular Hemoglobin 29.8 PG (27.0-31.0) Mean Corpuscular Hemoglobin Concent 33.3 G/DL (32.0-36.0) Red Cell Distribution Width 14.8 % (11.6-14.8) Platelet Count 471 K/UL (150-450) H Mean Platelet Volume 5.7 FL (6.5-10.1) L Neutrophils (%) (Auto) % (45.0-75.0) Lymphocytes (%) (Auto) % (20.0-45.0) Monocytes (%) (Auto) % (1.0-10.0) Eosinophils (%) (Auto) % (0.0-3.0) Basophils (%) (Auto) % (0.0-2.0) Differential Total Cells Counted 100 Neutrophils % (Manual) 81 % (45-75) H Lymphocytes % (Manual) 8 % (20-45) L Monocytes % (Manual) 9 % (1-10) Eosinophils % (Manual) 2 % (0-3) Basophils % (Manual) 0 % (0-2) Band Neutrophils 0 % (0-8) Platelet Estimate Adequate Platelet Morphology Normal Hypochromasia 1+ Anisocytosis 1+ Sodium Level 148 MMOL/L (136-145) H Potassium Level 3.5 MMOL/L (3.5-5.1) Chloride Level 113 MMOL/L (98-107) H Carbon Dioxide Level 27 MMOL/L (21-32) Anion Gap 8 mmol/L (5-15) Blood Urea Nitrogen 33 mg/dL (7-18) H Creatinine 1.6 MG/DL (0.55-1.30) H Estimat Glomerular Filtration Rate 53.6 mL/min (>60) Glucose Level 88 MG/DL (74-106) Calcium Level 8.3 MG/DL (8.5-10.1) L Phosphorus Level 3.2 MG/DL (2.5-4.9) Magnesium Level 1.4 MG/DL (1.8-2.4) L Total Bilirubin 0.7 MG/DL (0.2-1.0) Aspartate Amino Transf (AST/SGOT) 19 U/L (15-37) Alanine Aminotransferase (ALT/SGPT) 17 U/L (12-78) Alkaline Phosphatase 154 U/L (46-116) H Total Protein 6.4 G/DL (6.4-8.2) Albumin 1.9 G/DL (3.4-5.0) L Globulin 4.5 g/dL Albumin/Globulin Ratio 0.4 (1.0-2.7) L EDDIE COLES Nov 16, 2017 10:52
--- NOTE | 2017-11-16 11:28 | Nephrology Progress Note ---
Assessment/Plan Problem List: (1) Acute renal failure (ARF) Assessment: resolving (2) Respiratory failure (3) Shock liver Assessment Cr lowering JULIA , due to Shock , Hemorrhagic / Septic / C dif colitis worsenning anemia Off Pressors- Shock liver resolving High Troponin: NV Bradycardic - Vfib cardiac arrest 10/26 likely 2ry to hemorrhagic shock (drop Hgb 10.8 to 5) - GIB- Fever, ongoing Leukocytosis, worsening after code E.coli UTI w/ bacteremia Acute hypoxic resp failure- s/p Trach . Plan Plan: dialyse 11/10 next ? ? NOT NEEDED ANY MORE Will DC dialysis Cath K supplement as needed on cardiazem Per ID has new cath right chest will plan to removed K IV as needed right groin cath removed being transfused add Renvela and Lactobacillus BP stablized start GT feeding HD trial as needed- on C dif treatment protocol monitor urine out put and Renal parameters discussed with RN Subjective ROS Limited/Unobtainable: Yes Constitutional: Reports: malaise Objective Objective Last 24 Hour Vital Signs Date Time Temp Pulse Resp B/P (MAP) Pulse Ox O2 Delivery O2 Flow Rate FiO2 11/16/17 11:24 97 19 100 11/16/17 11:22 97 18 99 Mechanical Ventilator 100 11/16/17 09:29 91 25 100 11/16/17 08:00 100 11/16/17 08:00 98.4 90 32 147/94 92 Mechanical Ventilator 100 98.4 11/16/17 07:34 88 11/16/17 07:33 93 19 98 Mechanical Ventilator 100 11/16/17 07:28 91 19 100 11/16/17 07:27 91 19 95 Mechanical Ventilator 100 11/16/17 05:32 101 155/96 11/16/17 05:32 101 155/96 11/16/17 05:16 104 23 100 11/16/17 04:00 99.0 101 27 155/96 96 Mechanical Ventilator 100 99.0 11/16/17 04:00 106 11/16/17 04:00 100 11/16/17 02:52 102 19 99 Mechanical Ventilator 95 11/16/17 02:45 104 20 100 11/16/17 02:44 104 21 99 Mechanical Ventilator 100 11/16/17 01:03 99 26 100 11/16/17 00:47 95 150/96 11/16/17 00:00 99.7 95 27 150/96 96 Mechanical Ventilator 100 99.7 11/15/17 22:56 100 19 100 Mechanical Ventilator 95 11/15/17 22:50 103 22 100 Mechanical Ventilator 100 11/15/17 22:50 103 22 100 11/15/17 21:30 100 150/98 11/15/17 20:40 100 21 100 11/15/17 20:00 99.7 108 27 150/98 96 Mechanical Ventilator 100 99.7 11/15/17 20:00 106 11/15/17 20:00 100 11/15/17 19:05 105 22 98 Mechanical Ventilator 100 11/15/17 18:56 111 28 100 11/15/17 18:56 111 28 95 Mechanical Ventilator 100 11/15/17 17:42 99 102/60 11/15/17 17:38 99 22 100 11/15/17 16:00 97.8 120 19 102/60 95 Mechanical Ventilator 100 97.8 11/15/17 16:00 100 11/15/17 16:00 87 11/15/17 15:40 84 22 100 Mechanical Ventilator 100 11/15/17 15:17 90 21 90 Mechanical Ventilator 100 11/15/17 15:14 90 24 100 11/15/17 13:24 101 145/97 11/15/17 12:46 102 23 100 11/15/17 12:11 93 22 97 Mechanical Ventilator 100 11/15/17 12:00 98.0 99 24 153/98 98 Mechanical Ventilator 100 98.0 11/15/17 12:00 100 11/15/17 12:00 95 11/15/17 11:54 96 143/92 Intake and Output 11/15/17 11/16/17 19:00 07:00 Intake Total 600 ml 710 ml Output Total 950 ml 1245 ml Balance -350 ml -535 ml Free Water 30 ml 90 ml IV Total 110 ml 110 ml Tube Feeding 400 ml 450 ml Other 60 ml 60 ml Output Urine Total 750 ml 1200 ml Stool Total 200 ml 45 ml Laboratory Tests 11/16/17 04:00: White Blood Count 25.9*H, Red Blood Count 2.86L, Hemoglobin 8.5L, Hematocrit 25.6L, Mean Corpuscular Volume 90, Mean Corpuscular Hemoglobin 29.8, Mean Corpuscular Hemoglobin Concent 33.3, Red Cell Distribution Width 14.8, Platelet Count 471H, Mean Platelet Volume 5.7L, Neutrophils (%) (Auto) , Lymphocytes (%) (Auto) , Monocytes (%) (Auto) , Eosinophils (%) (Auto) , Basophils (%) (Auto) , Differential Total Cells Counted 100, Neutrophils % (Manual) 81H, Lymphocytes % (Manual) 8L, Monocytes % (Manual) 9, Eosinophils % (Manual) 2, Basophils % ( Manual) 0, Band Neutrophils 0, Platelet Estimate Adequate, Platelet Morphology Normal, Hypochromasia 1+, Anisocytosis 1+, Sodium Level 148H, Potassium Level 3.5, Chloride Level 113H, Carbon Dioxide Level 27, Anion Gap 8, Blood Urea Nitrogen 33H, Creatinine 1.6H, Estimat Glomerular Filtration Rate 53.6, Glucose Level 88, Calcium Level 8.3L, Phosphorus Level 3.2, Magnesium Level 1.4L, Total Bilirubin 0.7, Aspartate Amino Transf (AST/SGOT) 19, Alanine Aminotransferase ( ALT/SGPT) 17, Alkaline Phosphatase 154H, Total Protein 6.4, Albumin 1.9L, Globulin 4.5, Albumin/Globulin Ratio 0.4L Height (Feet): 5 Height (Inches): 6.00 Weight (Pounds): 214 General Appearance: no apparent distress Cardiovascular: tachycardia Respiratory/Chest: decreased breath sounds Abdomen: distended Objective no other change YVES SINHA Nov 16, 2017 11:28
[2017-11-16 12:00] VITALS: BP 150/96
--- NOTE | 2017-11-16 12:13 | GI Progress Note ---
Assessment/Plan Problems: (1) Dysphagia ICD Codes: R13.10 - Dysphagia, unspecified SNOMED: 73970682, 828401510 (2) Dementia ICD Codes: F03.90 - Unspecified dementia without behavioral disturbance SNOMED: 56991963 (3) PEG (percutaneous endoscopic gastrostomy) adjustment/replacement/removal ICD Codes: Z43.1 - Encounter for attention to gastrostomy SNOMED: 882048370, 006403385 (4) CVA, old, hemiparesis ICD Codes: I69.359 - Hemiplegia and hemiparesis following cerebral infarction affecting unspecified side SNOMED: 26662670, 84311148, [id number] Status: not improved, unchanged Status Narrative Discussed with Dr. Campos. Assessment/Plan s/p EGD and hemostasis cdiff positive >> dc ppi, H2B BID gastric lavage performed by RN with no evidence of gastric bleed monitor H&H, prn transfusion cont GTFs per RD GT site care BID/prn abx poor prognosis fu labs Subjective Subjective limited Objective Last 24 Hour Vital Signs Date Time Temp Pulse Resp B/P (MAP) Pulse Ox O2 Delivery O2 Flow Rate FiO2 11/16/17 11:29 105 25 99 Mechanical Ventilator 100 11/16/17 11:24 97 19 100 11/16/17 11:22 97 18 99 Mechanical Ventilator 100 11/16/17 09:29 91 25 100 11/16/17 08:00 100 11/16/17 08:00 98.4 90 32 147/94 92 Mechanical Ventilator 100 98.4 11/16/17 07:34 88 11/16/17 07:33 93 19 98 Mechanical Ventilator 100 11/16/17 07:28 91 19 100 11/16/17 07:27 91 19 95 Mechanical Ventilator 100 11/16/17 05:32 101 155/96 11/16/17 05:32 101 155/96 11/16/17 05:16 104 23 100 11/16/17 04:00 99.0 101 27 155/96 96 Mechanical Ventilator 100 99.0 11/16/17 04:00 106 11/16/17 04:00 100 11/16/17 02:52 102 19 99 Mechanical Ventilator 95 11/16/17 02:45 104 20 100 11/16/17 02:44 104 21 99 Mechanical Ventilator 100 11/16/17 01:03 99 26 100 11/16/17 00:47 95 150/96 11/16/17 00:00 99.7 95 27 150/96 96 Mechanical Ventilator 100 99.7 11/15/17 22:56 100 19 100 Mechanical Ventilator 95 11/15/17 22:50 103 22 100 Mechanical Ventilator 100 11/15/17 22:50 103 22 100 11/15/17 21:30 100 150/98 11/15/17 20:40 100 21 100 11/15/17 20:00 99.7 108 27 150/98 96 Mechanical Ventilator 100 99.7 11/15/17 20:00 106 11/15/17 20:00 100 11/15/17 19:05 105 22 98 Mechanical Ventilator 100 11/15/17 18:56 111 28 100 11/15/17 18:56 111 28 95 Mechanical Ventilator 100 11/15/17 17:42 99 102/60 11/15/17 17:38 99 22 100 11/15/17 16:00 97.8 120 19 102/60 95 Mechanical Ventilator 100 97.8 11/15/17 16:00 100 11/15/17 16:00 87 11/15/17 15:40 84 22 100 Mechanical Ventilator 100 11/15/17 15:17 90 21 90 Mechanical Ventilator 100 11/15/17 15:14 90 24 100 11/15/17 13:24 101 145/97 11/15/17 12:46 102 23 100 Intake and Output 11/15/17 11/16/17 19:00 07:00 Intake Total 600 ml 710 ml Output Total 950 ml 1245 ml Balance -350 ml -535 ml Free Water 30 ml 90 ml IV Total 110 ml 110 ml Tube Feeding 400 ml 450 ml Other 60 ml 60 ml Output Urine Total 750 ml 1200 ml Stool Total 200 ml 45 ml Laboratory Tests Test 11/16/17 04:00 White Blood Count 25.9 K/UL (4.8-10.8) *H Red Blood Count 2.86 M/UL (4.70-6.10) L Hemoglobin 8.5 G/DL (14.2-18.0) L Hematocrit 25.6 % (42.0-52.0) L Mean Corpuscular Volume 90 FL (80-99) Mean Corpuscular Hemoglobin 29.8 PG (27.0-31.0) Mean Corpuscular Hemoglobin Concent 33.3 G/DL (32.0-36.0) Red Cell Distribution Width 14.8 % (11.6-14.8) Platelet Count 471 K/UL (150-450) H Mean Platelet Volume 5.7 FL (6.5-10.1) L Neutrophils (%) (Auto) % (45.0-75.0) Lymphocytes (%) (Auto) % (20.0-45.0) Monocytes (%) (Auto) % (1.0-10.0) Eosinophils (%) (Auto) % (0.0-3.0) Basophils (%) (Auto) % (0.0-2.0) Differential Total Cells Counted 100 Neutrophils % (Manual) 81 % (45-75) H Lymphocytes % (Manual) 8 % (20-45) L Monocytes % (Manual) 9 % (1-10) Eosinophils % (Manual) 2 % (0-3) Basophils % (Manual) 0 % (0-2) Band Neutrophils 0 % (0-8) Platelet Estimate Adequate Platelet Morphology Normal Hypochromasia 1+ Anisocytosis 1+ Sodium Level 148 MMOL/L (136-145) H Potassium Level 3.5 MMOL/L (3.5-5.1) Chloride Level 113 MMOL/L (98-107) H Carbon Dioxide Level 27 MMOL/L (21-32) Anion Gap 8 mmol/L (5-15) Blood Urea Nitrogen 33 mg/dL (7-18) H Creatinine 1.6 MG/DL (0.55-1.30) H Estimat Glomerular Filtration Rate 53.6 mL/min (>60) Glucose Level 88 MG/DL (74-106) Calcium Level 8.3 MG/DL (8.5-10.1) L Phosphorus Level 3.2 MG/DL (2.5-4.9) Magnesium Level 1.4 MG/DL (1.8-2.4) L Total Bilirubin 0.7 MG/DL (0.2-1.0) Aspartate Amino Transf (AST/SGOT) 19 U/L (15-37) Alanine Aminotransferase (ALT/SGPT) 17 U/L (12-78) Alkaline Phosphatase 154 U/L (46-116) H Total Protein 6.4 G/DL (6.4-8.2) Albumin 1.9 G/DL (3.4-5.0) L Globulin 4.5 g/dL Albumin/Globulin Ratio 0.4 (1.0-2.7) L Height (Feet): 5 Height (Inches): 6.00 Weight (Pounds): 214 General Appearance: alert Cardiovascular: normal rate Respiratory/Chest: [facility] Abdominal Exam: GT site - dressing changed Larua Lucas N.P. Nov 16, 2017 12:13
[2017-11-16 16:00] VITALS: BP 150/113
--- NOTE | 2017-11-16 17:43 | Infectious Diseases Prog Note ---
Assessment/Plan Assessment/Plan A C Diff +ve, diarrhea mild improvement Fever, SP Leukocytosis,persistent -CXR: 10/30 : Slightly increased hazy opacity left lung base and obscuration of left hemidiaphragm, may reflect increased infiltrates and/or pleural fluid E.coli UTI w/ bacteremia ; s/p Rx -REnal US: Limited exam. No definite hydronephrosis. Empty bladder, containing a Cervantes catheter. Suspicion for Flu despite rapid test (+URI symptoms, sick contacts); s/p Rx ? Pneum 10/15 CXR : Increased left pleural fluid and and left basilar atelectasis. Cholecystitis CT and US : Gallbladder wall edema nonspecific in nature - HIDA aborted midway, pt become unstable Hep B/C : Neg Acute hypoxic resp failure- intubated (10/20) , SP Trach 10/23 12/18 KUB : Distended small bowel. Ileus versus obstruction. SP cardiac arrest 10/26 SP hemorrhagic shock (drop Hgb 10.8 to 5)- 10/12 GIB- transaminitis due to shock improving JULIA on HD , HD cath , no more needed Lactic acidosis, resolved UGI bleed / Anemia SP EGD 10/18 and 10/26 Path: H Pylori Neg CVA with hemiplegia HTN cataract dysphagia Hx of fall CAD/DE CVA/TIA dementia seizure disorder Plan: -Continue oral Vanco d# , add Tygacil d# / ( Coverage of C Diff and probable Cholecystitis ) ,Dificid d# , 11/15 SP Flagyl d# 20 10/30 SP Meropenem d# 5 - 10/29 SP IV Vanco # 10 - 10/26 SP Zosyn #6 - 10/21 SP Ceftriaxone 2 g qd d# 11 - 10/17 SP empiric Tamiflu #6/5 -2/ SP IV Vancomcyin #5, Meropenm #3 -2/3 SP Cefepime #3 -Monitor CBC/BMP, temperatures; -aspiration precautions - vent Support - repeat Cx if WBG does not improve - HD cath removal as per Nephro Subjective Allergies: Uncoded Allergies: TAPE (Adverse Reaction, Mild, 11/09/17) REDNESS AT TAPE SITE WHEN APPLIED TAPE Subjective no fever Objective Vital Signs Last 24 Hour Vital Signs Date Time Temp Pulse Resp B/P (MAP) Pulse Ox O2 Delivery O2 Flow Rate FiO2 11/16/17 17:27 102 28 100 11/16/17 17:07 104 150/113 11/16/17 16:45 28 80 Mechanical Ventilator 100 11/16/17 16:32 104 26 98 Mechanical Ventilator 40.0 100 11/16/17 16:26 100 11/16/17 16:24 104 26 98 Mechanical Ventilator 100 11/16/17 16:00 100 11/16/17 16:00 99.1 109 26 150/113 93 Mechanical Ventilator 100 99.1 11/16/17 15:20 104 26 100 11/16/17 13:11 105 150/96 11/16/17 13:10 102 32 100 11/16/17 12:39 105 150/96 11/16/17 12:00 100 11/16/17 12:00 98.2 105 34 150/96 96 Mechanical Ventilator 100 98.2 11/16/17 11:47 105 11/16/17 11:29 105 25 99 Mechanical Ventilator 100 11/16/17 11:24 97 19 100 11/16/17 11:22 97 18 99 Mechanical Ventilator 100 11/16/17 09:29 91 25 100 11/16/17 08:00 100 11/16/17 08:00 98.4 90 32 147/94 92 Mechanical Ventilator 100 98.4 11/16/17 07:34 88 11/16/17 07:33 93 19 98 Mechanical Ventilator 100 11/16/17 07:28 91 19 100 11/16/17 07:27 91 19 95 Mechanical Ventilator 100 11/16/17 05:32 101 155/96 11/16/17 05:32 101 155/96 11/16/17 05:16 104 23 100 11/16/17 04:00 99.0 101 27 155/96 96 Mechanical Ventilator 100 99.0 11/16/17 04:00 106 11/16/17 04:00 100 11/16/17 02:52 102 19 99 Mechanical Ventilator 95 11/16/17 02:45 104 20 100 11/16/17 02:44 104 21 99 Mechanical Ventilator 100 11/16/17 01:03 99 26 100 11/16/17 00:47 95 150/96 11/16/17 00:00 99.7 95 27 150/96 96 Mechanical Ventilator 100 99.7 11/15/17 22:56 100 19 100 Mechanical Ventilator 95 11/15/17 22:50 103 22 100 Mechanical Ventilator 100 11/15/17 22:50 103 22 100 11/15/17 21:30 100 150/98 11/15/17 20:40 100 21 100 11/15/17 20:00 99.7 108 27 150/98 96 Mechanical Ventilator 100 99.7 11/15/17 20:00 106 11/15/17 20:00 100 11/15/17 19:05 105 22 98 Mechanical Ventilator 100 11/15/17 18:56 111 28 100 11/15/17 18:56 111 28 95 Mechanical Ventilator 100 11/15/17 17:42 99 102/60 11/15/17 17:38 99 22 100 Height (Feet): 5 Height (Inches): 6.00 Weight (Pounds): 214 HEENT: anicteric Respiratory/Chest: normal breath sounds Cardiovascular: regular rhythm Abdomen: no organomegaly Laboratory Tests Test 11/16/17 04:00 11/16/17 16:48 White Blood Count 25.9 K/UL (4.8-10.8) *H Red Blood Count 2.86 M/UL (4.70-6.10) L Hemoglobin 8.5 G/DL (14.2-18.0) L Hematocrit 25.6 % (42.0-52.0) L Mean Corpuscular Volume 90 FL (80-99) Mean Corpuscular Hemoglobin 29.8 PG (27.0-31.0) Mean Corpuscular Hemoglobin Concent 33.3 G/DL (32.0-36.0) Red Cell Distribution Width 14.8 % (11.6-14.8) Platelet Count 471 K/UL (150-450) H Mean Platelet Volume 5.7 FL (6.5-10.1) L Neutrophils (%) (Auto) % (45.0-75.0) Lymphocytes (%) (Auto) % (20.0-45.0) Monocytes (%) (Auto) % (1.0-10.0) Eosinophils (%) (Auto) % (0.0-3.0) Basophils (%) (Auto) % (0.0-2.0) Differential Total Cells Counted 100 Neutrophils % (Manual) 81 % (45-75) H Lymphocytes % (Manual) 8 % (20-45) L Monocytes % (Manual) 9 % (1-10) Eosinophils % (Manual) 2 % (0-3) Basophils % (Manual) 0 % (0-2) Band Neutrophils 0 % (0-8) Platelet Estimate Adequate Platelet Morphology Normal Hypochromasia 1+ Anisocytosis 1+ Sodium Level 148 MMOL/L (136-145) H Potassium Level 3.5 MMOL/L (3.5-5.1) Chloride Level 113 MMOL/L (98-107) H Carbon Dioxide Level 27 MMOL/L (21-32) Anion Gap 8 mmol/L (5-15) Blood Urea Nitrogen 33 mg/dL (7-18) H Creatinine 1.6 MG/DL (0.55-1.30) H Estimat Glomerular Filtration Rate 53.6 mL/min (>60) Glucose Level 88 MG/DL (74-106) Calcium Level 8.3 MG/DL (8.5-10.1) L Phosphorus Level 3.2 MG/DL (2.5-4.9) Magnesium Level 1.4 MG/DL (1.8-2.4) L Total Bilirubin 0.7 MG/DL (0.2-1.0) Aspartate Amino Transf (AST/SGOT) 19 U/L (15-37) Alanine Aminotransferase (ALT/SGPT) 17 U/L (12-78) Alkaline Phosphatase 154 U/L (46-116) H Total Protein 6.4 G/DL (6.4-8.2) Albumin 1.9 G/DL (3.4-5.0) L Globulin 4.5 g/dL Albumin/Globulin Ratio 0.4 (1.0-2.7) L Arterial Blood pH 7.490 (7.350-7.450) Arterial Blood Partial Pressure CO2 32.3 mmHg (35.0-45.0) L Arterial Blood Partial Pressure O2 56.0 mmHg (75.0-100.0) L Arterial Blood HCO3 24.1 mmol/L (22.0-26.0) Arterial Blood Oxygen Saturation 89.0 % (92.0-98.0) L Arterial Blood Base Excess 1.0 Dipak Test Positive Current Medications Medications (Trade) Dose Ordered Sig/Olvin Route PRN Reason Start Time Stop Time Status Last Admin Dose Admin Acetaminophen (Tylenol) 650 mg Q4H PRN RECTAL Mild Pain (Pain Scale 1-3) 10/30/17 21:00 11/20/17 20:59 11/13/17 20:55 Chlorhexidine Gluconate (Pamela-Hex 2%) 1 applic DAILY@2000 TOPIC 10/31/17 22:00 11/23/17 21:59 11/15/17 21:10 Diltiazem HCl (Cardizem) 30 mg EVERY 6 HOURS GT 11/13/17 18:00 12/12/17 13:59 11/16/17 17:07 Fidaxomicin (Dificid) 200 mg EVERY 12 HOURS ORAL 11/15/17 12:00 11/24/17 21:01 11/16/17 09:38 Lactobacillus Acidophilus (Culturelle) 1 tab THREE TIMES A DAY GT 11/03/17 13:00 12/03/17 12:59 11/16/17 17:07 Levalbuterol HCl (Xopenex) 1.25 mg Q4HRT HHN 11/14/17 11:00 11/19/17 10:59 11/16/17 16:26 Lorazepam (Ativan 2mg/ml 1ml) 2 mg Q4H PRN IV For Anxiety 11/10/17 16:45 11/17/17 23:59 11/10/17 18:42 Metoclopramide HCl (Reglan) 5 mg Q6H PRN GT Irrectractable Nausea/Vomiting 10/30/17 21:00 11/29/17 20:59 11/12/17 09:32 Metoprolol Tartrate (Lopressor) 50 mg Q8HR GT 11/14/17 14:00 12/13/17 20:59 11/16/17 13:11 Ondansetron HCl (Zofran) 4 mg Q6H PRN IVP Nausea & Vomiting 10/30/17 21:00 11/29/17 20:59 Tigecycline 50 mg/ Dextrose 110 ml @ 220 mls/hr Q12HR@0500,1700 IVPB 11/12/17 05:00 11/19/17 04:59 11/16/17 17:09 Vancomycin HCl (Vancomycin) 125 mg FOUR TIMES A DAY GT 11/11/17 21:00 11/18/17 20:59 11/16/17 17:07 FAUSTINO AGARWAL M.D. Nov 16, 2017 17:43
--- NOTE | 2017-11-16 19:07 | Cardiology Progress Note ---
Assessment/Plan Assessment/Plan 1. Cardiopulmonary arrest on three separate occasions. 2. Massive gastrointestinal bleed. 3. Encephalopathy. 4. Abnormal liver function tests, likely shock liver. 5. Acute renal failure. 6. Anemia. 7. NSTEMI type2 related to cardiopulmonary resuscitation and renal insufficiency. 8. Chronic respiratory failure. 9. History of cerebrovascular accident. 10. c diff 11. htn onthe vent dialysis per dr wang tele sinus still bp is now high agian remain on high lisa oxygen off norvasc on dilt will increae to 60 m g qid as bp is quiet elevated is on bb as well may need additionla meds Subjective ROS Limited/Unobtainable: Yes Subjective on the vent Objective Last 24 Hour Vital Signs Date Time Temp Pulse Resp B/P (MAP) Pulse Ox O2 Delivery O2 Flow Rate FiO2 11/16/17 17:27 102 28 100 11/16/17 17:07 104 150/113 11/16/17 16:45 28 80 Mechanical Ventilator 100 11/16/17 16:32 104 26 98 Mechanical Ventilator 40.0 100 11/16/17 16:26 100 11/16/17 16:24 104 26 98 Mechanical Ventilator 100 11/16/17 16:22 108 11/16/17 16:00 100 11/16/17 16:00 99.1 109 26 150/113 93 Mechanical Ventilator 100 99.1 11/16/17 15:20 104 26 100 11/16/17 13:11 105 150/96 11/16/17 13:10 102 32 100 11/16/17 12:39 105 150/96 11/16/17 12:00 100 11/16/17 12:00 98.2 105 34 150/96 96 Mechanical Ventilator 100 98.2 11/16/17 11:47 105 11/16/17 11:29 105 25 99 Mechanical Ventilator 100 11/16/17 11:24 97 19 100 11/16/17 11:22 97 18 99 Mechanical Ventilator 100 11/16/17 09:29 91 25 100 11/16/17 08:00 100 11/16/17 08:00 98.4 90 32 147/94 92 Mechanical Ventilator 100 98.4 11/16/17 07:34 88 11/16/17 07:33 93 19 98 Mechanical Ventilator 100 11/16/17 07:28 91 19 100 11/16/17 07:27 91 19 95 Mechanical Ventilator 100 11/16/17 05:32 101 155/96 11/16/17 05:32 101 155/96 11/16/17 05:16 104 23 100 11/16/17 04:00 99.0 101 27 155/96 96 Mechanical Ventilator 100 99.0 11/16/17 04:00 106 11/16/17 04:00 100 11/16/17 02:52 102 19 99 Mechanical Ventilator 95 11/16/17 02:45 104 20 100 11/16/17 02:44 104 21 99 Mechanical Ventilator 100 11/16/17 01:03 99 26 100 11/16/17 00:47 95 150/96 11/16/17 00:00 99.7 95 27 150/96 96 Mechanical Ventilator 100 99.7 11/15/17 22:56 100 19 100 Mechanical Ventilator 95 11/15/17 22:50 103 22 100 Mechanical Ventilator 100 11/15/17 22:50 103 22 100 11/15/17 21:30 100 150/98 11/15/17 20:40 100 21 100 11/15/17 20:00 99.7 108 27 150/98 96 Mechanical Ventilator 100 99.7 11/15/17 20:00 106 11/15/17 20:00 100 General Appearance: no apparent distress, on vent, patient on isolation Intake and Output 11/15/17 11/16/17 19:00 07:00 Intake Total 600 ml 710 ml Output Total 950 ml 1245 ml Balance -350 ml -535 ml Free Water 30 ml 90 ml IV Total 110 ml 110 ml Tube Feeding 400 ml 450 ml Other 60 ml 60 ml Output Urine Total 750 ml 1200 ml Stool Total 200 ml 45 ml Laboratory Tests Test 11/16/17 04:00 11/16/17 16:48 White Blood Count 25.9 K/UL (4.8-10.8) *H Red Blood Count 2.86 M/UL (4.70-6.10) L Hemoglobin 8.5 G/DL (14.2-18.0) L Hematocrit 25.6 % (42.0-52.0) L Mean Corpuscular Volume 90 FL (80-99) Mean Corpuscular Hemoglobin 29.8 PG (27.0-31.0) Mean Corpuscular Hemoglobin Concent 33.3 G/DL (32.0-36.0) Red Cell Distribution Width 14.8 % (11.6-14.8) Platelet Count 471 K/UL (150-450) H Mean Platelet Volume 5.7 FL (6.5-10.1) L Neutrophils (%) (Auto) % (45.0-75.0) Lymphocytes (%) (Auto) % (20.0-45.0) Monocytes (%) (Auto) % (1.0-10.0) Eosinophils (%) (Auto) % (0.0-3.0) Basophils (%) (Auto) % (0.0-2.0) Differential Total Cells Counted 100 Neutrophils % (Manual) 81 % (45-75) H Lymphocytes % (Manual) 8 % (20-45) L Monocytes % (Manual) 9 % (1-10) Eosinophils % (Manual) 2 % (0-3) Basophils % (Manual) 0 % (0-2) Band Neutrophils 0 % (0-8) Platelet Estimate Adequate Platelet Morphology Normal Hypochromasia 1+ Anisocytosis 1+ Sodium Level 148 MMOL/L (136-145) H Potassium Level 3.5 MMOL/L (3.5-5.1) Chloride Level 113 MMOL/L (98-107) H Carbon Dioxide Level 27 MMOL/L (21-32) Anion Gap 8 mmol/L (5-15) Blood Urea Nitrogen 33 mg/dL (7-18) H Creatinine 1.6 MG/DL (0.55-1.30) H Estimat Glomerular Filtration Rate 53.6 mL/min (>60) Glucose Level 88 MG/DL (74-106) Calcium Level 8.3 MG/DL (8.5-10.1) L Phosphorus Level 3.2 MG/DL (2.5-4.9) Magnesium Level 1.4 MG/DL (1.8-2.4) L Total Bilirubin 0.7 MG/DL (0.2-1.0) Aspartate Amino Transf (AST/SGOT) 19 U/L (15-37) Alanine Aminotransferase (ALT/SGPT) 17 U/L (12-78) Alkaline Phosphatase 154 U/L (46-116) H Total Protein 6.4 G/DL (6.4-8.2) Albumin 1.9 G/DL (3.4-5.0) L Globulin 4.5 g/dL Albumin/Globulin Ratio 0.4 (1.0-2.7) L Arterial Blood pH 7.490 (7.350-7.450) Arterial Blood Partial Pressure CO2 32.3 mmHg (35.0-45.0) L Arterial Blood Partial Pressure O2 56.0 mmHg (75.0-100.0) L Arterial Blood HCO3 24.1 mmol/L (22.0-26.0) Arterial Blood Oxygen Saturation 89.0 % (92.0-98.0) L Arterial Blood Base Excess 1.0 Dipak Test Positive CHRISTEN LOVE Nov 16, 2017 19:07
[2017-11-16 20:00] VITALS: BP 142/104
[2017-11-16] MEDS: Dyna-Hex 2% Top Sol 2oz TOPIC SCH (20:28)
[2017-11-17] VITALS: BP 139/98
[2017-11-17] MEDS: dilTIAZem HCl 30mg tab GT SCH ×4 (00:49→17:15)
[2017-11-17] MEDS: Levalbuterol Inh UD 1.25mg/0.5ml HHN SCH ×6 (03:15→23:00)
[2017-11-17 04:00] VITALS: BP 135/91
[2017-11-17] MEDS: Tigecycline 50 MG in D5W 110 ML IVPB SCH ×2 (05:11→17:16)
[2017-11-17] MEDS: Metoprolol Tartrate 50mg tab GT SCH ×3 (05:12→22:05)
[2017-11-17 05:20] LABS: HEMATOCRIT 27.1 % (42.0-52.0); MEAN CORPUSCULAR VOLUME 90 FL (80-99); PLATELET COUNT 489 K/UL (150-450); RED BLOOD COUNT 3.01 M/UL (4.70-6.10)
[2017-11-17 05:40] LABS: WHITE BLOOD COUNT 24.7 K/UL (4.8-10.8)
[2017-11-17 05:45] LABS: ALANINE AMINOTRANSFERASE 16 U/L (12-78); ALBUMIN 1.9 G/DL (3.4-5.0); ALBUMIN/GLOBULIN RATIO 0.4 (1.0-2.7); ALKALINE PHOSPHATASE 166 U/L (46-116); ANION GAP 6 mmol/L (5-15); ASPARTATE AMINO TRANSFERASE 21 U/L (15-37); BILIRUBIN,TOTAL 0.7 MG/DL (0.2-1.0); BLOOD UREA NITROGEN 33 mg/dL (7-18); CALCIUM 8.1 MG/DL (8.5-10.1); CARBON DIOXIDE 27 MMOL/L (21-32); CHLORIDE 113 MMOL/L (98-107); CREATININE 1.4 MG/DL (0.55-1.30); PHOSPHORUS 3.7 MG/DL (2.5-4.9); POTASSIUM 3.3 MMOL/L (3.5-5.1); SODIUM 146 MMOL/L (136-145)
--- NOTE | 2017-11-17 07:30 | Nephrology Progress Note ---
Assessment/Plan Problem List: (1) Acute renal failure (ARF) Assessment: resolving (2) Respiratory failure (3) Shock liver Assessment Cr lowering continously JULIA , due to Shock , Hemorrhagic / Septic / C dif colitis worsenning anemia Off Pressors- Shock liver resolving High Troponin: UT Bradycardic - Vfib cardiac arrest 10/26 likely 2ry to hemorrhagic shock (drop Hgb 10.8 to 5) - GIB- Fever, ongoing Leukocytosis, worsening after code E.coli UTI w/ bacteremia Acute hypoxic resp failure- s/p Trach . Plan Plan: dialyse 11/10 next ? ? NOT NEEDED ANY MORE dialysis Cath DCed 11/16 K supplement as needed on cardiazem Per ID has new cath right chest will plan to removed K IV as needed right groin cath removed being transfused add Renvela and Lactobacillus BP stablized start GT feeding HD trial as needed- on C dif treatment protocol monitor urine out put and Renal parameters discussed with RN Subjective ROS Limited/Unobtainable: Yes Objective Objective Last 24 Hour Vital Signs Date Time Temp Pulse Resp B/P (MAP) Pulse Ox O2 Delivery O2 Flow Rate FiO2 11/17/17 07:18 92 21 96 Mechanical Ventilator 100 11/17/17 07:18 88 28 100 11/17/17 07:11 87 18 93 Mechanical Ventilator 100 11/17/17 05:12 102 135/91 11/17/17 05:12 102 135/91 11/17/17 05:05 102 32 100 11/17/17 04:00 100 11/17/17 04:00 98.2 87 36 135/91 100 Mechanical Ventilator 100 98.2 11/17/17 04:00 99 11/17/17 03:25 103 26 98 Mechanical Ventilator 100 11/17/17 03:15 89 26 100 Mechanical Ventilator 100 11/17/17 03:14 89 23 100 11/17/17 01:24 88 26 100 11/17/17 00:49 87 142/104 11/17/17 00:00 98.4 91 21 139/98 95 Mechanical Ventilator 100 98.4 11/17/17 00:00 100 11/17/17 00:00 90 11/16/17 23:10 89 26 98 Mechanical Ventilator 100 11/16/17 23:00 87 26 97 Mechanical Ventilator 100 11/16/17 22:59 86 27 100 3/9/18 21:18 101 18 100 11/16/17 20:29 101 142/104 11/16/17 20:00 100 11/16/17 20:00 98.1 101 21 142/104 95 Mechanical Ventilator 100 98.1 11/16/17 19:39 97 26 98 Mechanical Ventilator 100 11/16/17 19:29 92 18 90 Mechanical Ventilator 100 11/16/17 19:28 92 11/16/17 19:27 92 18 100 11/16/17 17:27 102 28 100 11/16/17 17:07 104 150/113 11/16/17 16:45 28 80 Mechanical Ventilator 100 11/16/17 16:32 104 26 98 Mechanical Ventilator 40.0 100 11/16/17 16:26 100 11/16/17 16:24 104 26 98 Mechanical Ventilator 100 11/16/17 16:22 108 11/16/17 16:00 100 11/16/17 16:00 99.1 109 26 150/113 93 Mechanical Ventilator 100 99.1 11/16/17 15:20 104 26 100 11/16/17 13:11 105 150/96 11/16/17 13:10 102 32 100 11/16/17 12:39 105 150/96 11/16/17 12:00 100 11/16/17 12:00 98.2 105 34 150/96 96 Mechanical Ventilator 100 98.2 11/16/17 11:47 105 11/16/17 11:29 105 25 99 Mechanical Ventilator 100 11/16/17 11:24 97 19 100 11/16/17 11:22 97 18 99 Mechanical Ventilator 100 11/16/17 09:29 91 25 100 11/16/17 08:00 100 11/16/17 08:00 98.4 90 32 147/94 92 Mechanical Ventilator 100 98.4 11/16/17 07:34 88 11/16/17 07:33 93 19 98 Mechanical Ventilator 100 Intake and Output 11/16/17 11/17/17 19:00 07:00 Intake Total 400 ml 460 ml Output Total 1550 ml 770 ml Balance -1150 ml -310 ml IV Total 300 ml Tube Feeding 100 ml 400 ml Other 60 ml Output Urine Total 1500 ml 770 ml Stool Total 50 ml # Bowel Movements 30 Laboratory Tests 11/16/17 16:48: Arterial Blood pH 7.490H, Arterial Blood Partial Pressure CO2 32.3L, Arterial Blood Partial Pressure O2 56.0L, Arterial Blood HCO3 24.1, Arterial Blood Oxygen Saturation 89.0L, Arterial Blood Base Excess 1.0, Dipak Test Positive 11/17/17 04:30: White Blood Count 24.7*H, Red Blood Count 3.01L, Hemoglobin 9.0L, Hematocrit 27.1L, Mean Corpuscular Volume 90, Mean Corpuscular Hemoglobin 30.0, Mean Corpuscular Hemoglobin Concent 33.3, Red Cell Distribution Width 15.0H, Platelet Count 489H, Mean Platelet Volume 5.9L, Neutrophils (%) (Auto) , Lymphocytes (%) (Auto) , Monocytes (%) (Auto) , Eosinophils (%) (Auto) , Basophils (%) (Auto) , Neutrophils % (Manual) [Pending], Lymphocytes % (Manual) [Pending], Platelet Estimate [Pending], Platelet Morphology [Pending], Sodium Level 146H, Potassium Level 3.3L, Chloride Level 113H, Carbon Dioxide Level 27, Anion Gap 6, Blood Urea Nitrogen 33H, Creatinine 1.4H, Estimat Glomerular Filtration Rate > 60, Glucose Level 108H, Calcium Level 8.1L, Phosphorus Level 3.7, Magnesium Level 2.0, Total Bilirubin 0.7, Aspartate Amino Transf (AST/SGOT ) 21, Alanine Aminotransferase (ALT/SGPT) 16, Alkaline Phosphatase 166H, Total Protein 6.5, Albumin 1.9L, Globulin 4.6, Albumin/Globulin Ratio 0.4L Height (Feet): 5 Height (Inches): 6.00 Weight (Pounds): 213 General Appearance: no apparent distress Cardiovascular: tachycardia Respiratory/Chest: decreased breath sounds Abdomen: distended Objective no other change YVES SINHA Nov 17, 2017 07:30
[2017-11-17 08:00] VITALS: BP 129/78
--- NOTE | 2017-11-17 08:16 | Pulmonolgy Critical Care Note ---
Critical Care - Asmt/Plan Problems: (1) Acute respiratory failure (2) Collapse of right lung (3) Acute renal failure (ARF) (4) Pneumonia (5) Sepsis (6) Epileptic seizure, generalized (7) Feeding by G-tube (8) C. difficile colitis Respiratory: monitor respiratory rate, adjust FIO2 Cardiac: continue to monitor HR/BP Renal: F/U I&O, keep IV fluid Infectious Disease: check cultures Gastrointestinal: continue feedings/current rate, other - add reglan Endocrine: monitor blood sugar, continue sliding scale insulin Hematologic: monitor H/H, transfuse if hgb<8.5 Neurologic: PRN Ativan, PRN Morphine, keep patient comfortable Prophylaxis: Protonix Notes Reviewed: operator prefinish, cardio Discussed with: nurses, consultants, case manager specialistoptical engineering manager - Objective Last 24 Hour Vital Signs Date Time Temp Pulse Resp B/P (MAP) Pulse Ox O2 Delivery O2 Flow Rate FiO2 11/17/17 08:00 97.7 91 20 129/78 95 Mechanical Ventilator 100 97.7 11/17/17 08:00 100 11/17/17 07:18 92 21 96 Mechanical Ventilator 100 11/17/17 07:18 88 28 100 11/17/17 07:11 87 18 93 Mechanical Ventilator 100 11/17/17 05:12 102 135/91 11/17/17 05:12 102 135/91 11/17/17 05:05 102 32 100 11/17/17 04:00 100 11/17/17 04:00 98.2 87 36 135/91 100 Mechanical Ventilator 100 98.2 11/17/17 04:00 99 11/17/17 03:25 103 26 98 Mechanical Ventilator 100 11/17/17 03:15 89 26 100 Mechanical Ventilator 100 11/17/17 03:14 89 23 100 11/17/17 01:24 88 26 100 11/17/17 00:49 87 142/104 11/17/17 00:00 98.4 91 21 139/98 95 Mechanical Ventilator 100 98.4 11/17/17 00:00 100 11/17/17 00:00 90 11/16/17 23:10 89 26 98 Mechanical Ventilator 100 11/16/17 23:00 87 26 97 Mechanical Ventilator 100 11/16/17 22:59 86 27 100 11/16/17 21:18 101 18 100 11/16/17 20:29 101 142/104 11/16/17 20:00 100 11/16/17 20:00 98.1 101 21 142/104 95 Mechanical Ventilator 100 98.1 11/16/17 19:39 97 26 98 Mechanical Ventilator 100 11/16/17 19:29 92 18 90 Mechanical Ventilator 100 11/16/17 19:28 92 11/16/17 19:27 92 18 100 11/16/17 17:27 102 28 100 11/16/17 17:07 104 150/113 11/16/17 16:45 28 80 Mechanical Ventilator 100 11/16/17 16:32 104 26 98 Mechanical Ventilator 40.0 100 11/16/17 16:26 100 11/16/17 16:24 104 26 98 Mechanical Ventilator 100 11/16/17 16:22 108 11/16/17 16:00 100 11/16/17 16:00 99.1 109 26 150/113 93 Mechanical Ventilator 100 99.1 11/16/17 15:20 104 26 100 11/16/17 13:11 105 150/96 11/16/17 13:10 102 32 100 11/16/17 12:39 105 150/96 11/16/17 12:00 100 11/16/17 12:00 98.2 105 34 150/96 96 Mechanical Ventilator 100 98.2 11/16/17 11:47 105 11/16/17 11:29 105 25 99 Mechanical Ventilator 100 11/16/17 11:24 97 19 100 11/16/17 11:22 97 18 99 Mechanical Ventilator 100 11/16/17 09:29 91 25 100 Status: sedated Condition: critical HEENT: atraumatic Neck: full ROM Lungs: chest wall tender Heart: HR/BP stable Abdomen: soft, non-tender, feeding tube Extremities: no C/C/E Critical Care - Subjective Condition: critical FI02: 100 Vent Support Breath Rate: 18 Vent Support Mode: AC Vent Tidal Volume: 700 Sputum Amount: Small PEEP: 10.0 PIP: 50 Tube Feeding Amount: 50 I&O: Intake and Output 11/16/17 11/17/17 19:00 07:00 Intake Total 400 ml 570 ml Output Total 1550 ml 770 ml Balance -1150 ml -200 ml IV Total 300 ml 110 ml Tube Feeding 100 ml 400 ml Other 60 ml Output Urine Total 1500 ml 770 ml Stool Total 50 ml # Bowel Movements 30 CXR: pending ET-Tube: 8.0 ET Position: 24 Labs: Laboratory Tests Test 11/16/17 16:48 11/17/17 04:30 Arterial Blood pH 7.490 (7.350-7.450) Arterial Blood Partial Pressure CO2 32.3 mmHg (35.0-45.0) L Arterial Blood Partial Pressure O2 56.0 mmHg (75.0-100.0) L Arterial Blood HCO3 24.1 mmol/L (22.0-26.0) Arterial Blood Oxygen Saturation 89.0 % (92.0-98.0) L Arterial Blood Base Excess 1.0 Dipak Test Positive White Blood Count 24.7 K/UL (4.8-10.8) *H Red Blood Count 3.01 M/UL (4.70-6.10) L Hemoglobin 9.0 G/DL (14.2-18.0) L Hematocrit 27.1 % (42.0-52.0) L Mean Corpuscular Volume 90 FL (80-99) Mean Corpuscular Hemoglobin 30.0 PG (27.0-31.0) Mean Corpuscular Hemoglobin Concent 33.3 G/DL (32.0-36.0) Red Cell Distribution Width 15.0 % (11.6-14.8) H Platelet Count 489 K/UL (150-450) H Mean Platelet Volume 5.9 FL (6.5-10.1) L Neutrophils (%) (Auto) % (45.0-75.0) Lymphocytes (%) (Auto) % (20.0-45.0) Monocytes (%) (Auto) % (1.0-10.0) Eosinophils (%) (Auto) % (0.0-3.0) Basophils (%) (Auto) % (0.0-2.0) Neutrophils % (Manual) Pending Lymphocytes % (Manual) Pending Platelet Estimate Pending Platelet Morphology Pending Sodium Level 146 MMOL/L (136-145) H Potassium Level 3.3 MMOL/L (3.5-5.1) L Chloride Level 113 MMOL/L (98-107) H Carbon Dioxide Level 27 MMOL/L (21-32) Anion Gap 6 mmol/L (5-15) Blood Urea Nitrogen 33 mg/dL (7-18) H Creatinine 1.4 MG/DL (0.55-1.30) H Estimat Glomerular Filtration Rate > 60 mL/min (>60) Glucose Level 108 MG/DL (74-106) H Calcium Level 8.1 MG/DL (8.5-10.1) L Phosphorus Level 3.7 MG/DL (2.5-4.9) Magnesium Level 2.0 MG/DL (1.8-2.4) Total Bilirubin 0.7 MG/DL (0.2-1.0) Aspartate Amino Transf (AST/SGOT) 21 U/L (15-37) Alanine Aminotransferase (ALT/SGPT) 16 U/L (12-78) Alkaline Phosphatase 166 U/L (46-116) H Total Protein 6.5 G/DL (6.4-8.2) Albumin 1.9 G/DL (3.4-5.0) L Globulin 4.6 g/dL Albumin/Globulin Ratio 0.4 (1.0-2.7) L EDDIE COLES Nov 17, 2017 08:16
[2017-11-17] MEDS: Vancomycin oral 125mg/2.5ml GT SCH ×4 (09:00→22:05)
[2017-11-17] MEDS: Lactobacillus-GG tablet GT SCH ×3 (09:00→17:16)
[2017-11-17] MEDS ORDERED: Potassium Chloride 40 MEQ in Sodium Chloride 500ML 550 ML IVPB ONE (10:00)
--- NOTE | 2017-11-17 10:20 | Diagnostic Imaging Report ---
Indication: Shortness of breath Technique: XRAY Chest 1v Comparison: 11/12/2017 Findings: Tracheostomy and right subclavian central line are again noted. Right internal jugular Thompson catheter has been removed. There is increasing opacification of the left mid and lower lung melo. There is also increasing airspace disease in the left upper lobe. Interstitial and airspace edema of the right lung is noted. Osseous structures are stable. Impression: Increasing opacification of the left mid and lower lung melo could represent partial lung collapse. Underlying pleural fluid not excluded. Increasing left perihilar infiltrate. Findings discussed with the patient's west nurse and Dr. Martines will be notified.
[2017-11-17 12:00] VITALS: BP 131/88
--- NOTE | 2017-11-17 15:32 | Cardiology Progress Note ---
Assessment/Plan Status: stable, not improved Status Narrative Pt w/ respiratory failure, chronic vent w/ increased o2 requirements, now on 100 % fio2 CXR w/ possible L lung collapse. hx of cardiopulm arrest - resuscitated. hx of gi bleed. Assessment/Plan Plan per pulmonary - ? bronchoscopy if no improvement in L lung collapse w/ suctioning, respiratory rx. Continue metoprolol, diltiazem for BP, HR control. If bradycardia develops, would dc diltiazem and start norvasc for BP Subjective ROS Limited/Unobtainable: Yes Subjective Cardiology for Dr. Chin Pt on vent/ awake. Objective Last 24 Hour Vital Signs Date Time Temp Pulse Resp B/P (MAP) Pulse Ox O2 Delivery O2 Flow Rate FiO2 11/17/17 15:02 94 131/88 11/17/17 14:48 94 24 94 Mechanical Ventilator 100 11/17/17 14:31 94 26 100 11/17/17 14:30 97 29 90 Mechanical Ventilator 100 11/17/17 13:09 97 131/88 11/17/17 12:47 97 32 100 11/17/17 12:00 98.1 91 28 131/88 100 Mechanical Ventilator 100 98.1 11/17/17 12:00 100 11/17/17 11:45 91 11/17/17 10:55 96 21 96 Mechanical Ventilator 100 11/17/17 10:45 96 28 100 11/17/17 10:43 96 28 96 Mechanical Ventilator 100 11/17/17 08:58 90 29 100 11/17/17 08:00 97.7 91 20 129/78 95 Mechanical Ventilator 100 97.7 11/17/17 08:00 100 11/17/17 07:45 89 11/17/17 07:18 92 21 96 Mechanical Ventilator 100 11/17/17 07:18 88 28 100 11/17/17 07:11 87 18 93 Mechanical Ventilator 100 11/17/17 05:12 102 135/91 11/17/17 05:12 102 135/91 11/17/17 05:05 102 32 100 11/17/17 04:00 100 11/17/17 04:00 98.2 87 36 135/91 100 Mechanical Ventilator 100 98.2 11/17/17 04:00 99 11/17/17 03:25 103 26 98 Mechanical Ventilator 100 11/17/17 03:15 89 26 100 Mechanical Ventilator 100 11/17/17 03:14 89 23 100 11/17/17 01:24 88 26 100 11/17/17 00:49 87 142/104 11/17/17 00:00 98.4 91 21 139/98 95 Mechanical Ventilator 100 98.4 11/17/17 00:00 100 11/17/17 00:00 90 11/16/17 23:10 89 26 98 Mechanical Ventilator 100 11/16/17 23:00 87 26 97 Mechanical Ventilator 100 11/16/17 22:59 86 27 100 11/16/17 21:18 101 18 100 11/16/17 20:29 101 142/104 11/16/17 20:00 100 11/16/17 20:00 98.1 101 21 142/104 95 Mechanical Ventilator 100 98.1 11/16/17 19:39 97 26 98 Mechanical Ventilator 100 11/16/17 19:29 92 18 90 Mechanical Ventilator 100 11/16/17 19:28 92 11/16/17 19:27 92 18 100 11/16/17 17:27 102 28 100 11/16/17 17:07 104 150/113 11/16/17 16:45 28 80 Mechanical Ventilator 100 11/16/17 16:32 104 26 98 Mechanical Ventilator 40.0 100 11/16/17 16:26 100 11/16/17 16:24 104 26 98 Mechanical Ventilator 100 11/16/17 16:22 108 11/16/17 16:00 100 11/16/17 16:00 99.1 109 26 150/113 93 Mechanical Ventilator 100 99.1 General Appearance: alert, on vent EENT: PERRL/EOMI Neck: supple Rhythm: NSR Cardiovascular: normal rate, regular rhythm, no gallop/murmur Respiratory/Chest: rhonchi - bilaterally Abdomen: non tender, soft Extremities: no swelling Intake and Output 11/16/17 11/17/17 19:00 07:00 Intake Total 400 ml 570 ml Output Total 1550 ml 770 ml Balance -1150 ml -200 ml IV Total 300 ml 110 ml Tube Feeding 100 ml 400 ml Other 60 ml Output Urine Total 1500 ml 770 ml Stool Total 50 ml # Bowel Movements 30 Laboratory Tests Test 11/16/17 16:48 11/17/17 04:30 Arterial Blood pH 7.490 (7.350-7.450) Arterial Blood Partial Pressure CO2 32.3 mmHg (35.0-45.0) L Arterial Blood Partial Pressure O2 56.0 mmHg (75.0-100.0) L Arterial Blood HCO3 24.1 mmol/L (22.0-26.0) Arterial Blood Oxygen Saturation 89.0 % (92.0-98.0) L Arterial Blood Base Excess 1.0 Dipak Test Positive White Blood Count 24.7 K/UL (4.8-10.8) *H Red Blood Count 3.01 M/UL (4.70-6.10) L Hemoglobin 9.0 G/DL (14.2-18.0) L Hematocrit 27.1 % (42.0-52.0) L Mean Corpuscular Volume 90 FL (80-99) Mean Corpuscular Hemoglobin 30.0 PG (27.0-31.0) Mean Corpuscular Hemoglobin Concent 33.3 G/DL (32.0-36.0) Red Cell Distribution Width 15.0 % (11.6-14.8) H Platelet Count 489 K/UL (150-450) H Mean Platelet Volume 5.9 FL (6.5-10.1) L Neutrophils (%) (Auto) % (45.0-75.0) Lymphocytes (%) (Auto) % (20.0-45.0) Monocytes (%) (Auto) % (1.0-10.0) Eosinophils (%) (Auto) % (0.0-3.0) Basophils (%) (Auto) % (0.0-2.0) Differential Total Cells Counted 100 Neutrophils % (Manual) 84 % (45-75) H Lymphocytes % (Manual) 9 % (20-45) L Monocytes % (Manual) 6 % (1-10) Eosinophils % (Manual) 1 % (0-3) Basophils % (Manual) 0 % (0-2) Band Neutrophils 0 % (0-8) Platelet Estimate Adequate Platelet Morphology Normal Hypochromasia 1+ Anisocytosis 1+ Sodium Level 146 MMOL/L (136-145) H Potassium Level 3.3 MMOL/L (3.5-5.1) L Chloride Level 113 MMOL/L (98-107) H Carbon Dioxide Level 27 MMOL/L (21-32) Anion Gap 6 mmol/L (5-15) Blood Urea Nitrogen 33 mg/dL (7-18) H Creatinine 1.4 MG/DL (0.55-1.30) H Estimat Glomerular Filtration Rate > 60 mL/min (>60) Glucose Level 108 MG/DL (74-106) H Calcium Level 8.1 MG/DL (8.5-10.1) L Phosphorus Level 3.7 MG/DL (2.5-4.9) Magnesium Level 2.0 MG/DL (1.8-2.4) Total Bilirubin 0.7 MG/DL (0.2-1.0) Aspartate Amino Transf (AST/SGOT) 21 U/L (15-37) Alanine Aminotransferase (ALT/SGPT) 16 U/L (12-78) Alkaline Phosphatase 166 U/L (46-116) H Total Protein 6.5 G/DL (6.4-8.2) Albumin 1.9 G/DL (3.4-5.0) L Globulin 4.6 g/dL Albumin/Globulin Ratio 0.4 (1.0-2.7) MARLENY GREEN Nov 17, 2017 15:32
--- NOTE | 2017-11-17 15:33 | Infectious Diseases Prog Note ---
Assessment/Plan Assessment/Plan A C Diff +ve, diarrhea persists Fever, SP Leukocytosis,persistent -CXR: 10/30 : Slightly increased hazy opacity left lung base and obscuration of left hemidiaphragm, may reflect increased infiltrates and/or pleural fluid E.coli UTI w/ bacteremia ; s/p Rx -REnal US: Limited exam. No definite hydronephrosis. Empty bladder, containing a Cervantes catheter. Suspicion for Flu despite rapid test (+URI symptoms, sick contacts); s/p Rx ? Pneum 11/17 CXR : . Increasing opacification of the left mid and lower lung melo could represent partial lung collapse. Underlying pleural fluid not excluded. Elev Alk Ph no evid for Cholecystitis CT and US : Gallbladder wall edema nonspecific in nature - HIDA neg for Cholecystitis Hep B/C : Neg Acute hypoxic resp failure- intubated (10/20) , SP Trach 10/23 12/18 KUB : Distended small bowel. Ileus versus obstruction. SP cardiac arrest 10/26 SP hemorrhagic shock (drop Hgb 10.8 to 5)- 10/12 GIB- transaminitis due to shock improving sp JULIA and HD , HD cath removed 11/16 UGI bleed / Anemia SP EGD 10/18 and 10/26 Path: H Pylori Neg CVA with hemiplegia HTN cataract dysphagia Hx of fall CAD/PR CVA/TIA dementia seizure disorder Plan: -Continue oral Vanco d# / , add Tygacil d# / -14 ( Coverage of C Diff and probable Pneum ) ,Dificid d# , may add Mycamine empirically if WBC does not improve 11/15 SP Flagyl d# 20 10/30 SP Meropenem d# 5 - 10/29 SP IV Vanco # 10 - 10/26 SP Zosyn #6 - 10/21 SP Ceftriaxone 2 g qd d# 11 - 10/17 SP empiric Tamiflu #6/5 -2 SP IV Vancomcyin #5, Meropenm #3 -2 SP Cefepime #3 -Monitor CBC/BMP, temperatures; -aspiration precautions - vent Support - repeat Cx ( Bl, Ur, Sp ) - may need removal of subclavian Ctr line ( since Oct 26 ) - C-CT eval of lungs ro empyema / lung collapse Subjective Allergies: Uncoded Allergies: TAPE (Adverse Reaction, Mild, 3/2/18) REDNESS AT TAPE SITE WHEN APPLIED TAPE Subjective persistent leukocytosis no fever Objective Vital Signs Last 24 Hour Vital Signs Date Time Temp Pulse Resp B/P (MAP) Pulse Ox O2 Delivery O2 Flow Rate FiO2 11/17/17 15:02 94 131/88 11/17/17 14:48 94 24 94 Mechanical Ventilator 100 11/17/17 14:31 94 26 100 11/17/17 14:30 97 29 90 Mechanical Ventilator 100 11/17/17 13:09 97 131/88 11/17/17 12:47 97 32 100 11/17/17 12:00 98.1 91 28 131/88 100 Mechanical Ventilator 100 98.1 11/17/17 12:00 100 11/17/17 11:45 91 11/17/17 10:55 96 21 96 Mechanical Ventilator 100 11/17/17 10:45 96 28 100 11/17/17 10:43 96 28 96 Mechanical Ventilator 100 11/17/17 08:58 90 29 100 11/17/17 08:00 97.7 91 20 129/78 95 Mechanical Ventilator 100 97.7 11/17/17 08:00 100 11/17/17 07:45 89 11/17/17 07:18 92 21 96 Mechanical Ventilator 100 11/17/17 07:18 88 28 100 11/17/17 07:11 87 18 93 Mechanical Ventilator 100 11/17/17 05:12 102 135/91 11/17/17 05:12 102 135/91 11/17/17 05:05 102 32 100 11/17/17 04:00 100 11/17/17 04:00 98.2 87 36 135/91 100 Mechanical Ventilator 100 98.2 11/17/17 04:00 99 11/17/17 03:25 103 26 98 Mechanical Ventilator 100 11/17/17 03:15 89 26 100 Mechanical Ventilator 100 11/17/17 03:14 89 23 100 11/17/17 01:24 88 26 100 11/17/17 00:49 87 142/104 11/17/17 00:00 98.4 91 21 139/98 95 Mechanical Ventilator 100 98.4 11/17/17 00:00 100 11/17/17 00:00 90 11/16/17 23:10 89 26 98 Mechanical Ventilator 100 11/16/17 23:00 87 26 97 Mechanical Ventilator 100 11/16/17 22:59 86 27 100 11/16/17 21:18 101 18 100 11/16/17 20:29 101 142/104 11/16/17 20:00 100 11/16/17 20:00 98.1 101 21 142/104 95 Mechanical Ventilator 100 98.1 11/16/17 19:39 97 26 98 Mechanical Ventilator 100 11/16/17 19:29 92 18 90 Mechanical Ventilator 100 11/16/17 19:28 92 11/16/17 19:27 92 18 100 11/16/17 17:27 102 28 100 11/16/17 17:07 104 150/113 11/16/17 16:45 28 80 Mechanical Ventilator 100 11/16/17 16:32 104 26 98 Mechanical Ventilator 40.0 100 11/16/17 16:26 100 11/16/17 16:24 104 26 98 Mechanical Ventilator 100 11/16/17 16:22 108 11/16/17 16:00 100 11/16/17 16:00 99.1 109 26 150/113 93 Mechanical Ventilator 100 99.1 Height (Feet): 5 Height (Inches): 6.00 Weight (Pounds): 213 HEENT: anicteric Respiratory/Chest: normal breath sounds Cardiovascular: regularly irregular Abdomen: no organomegaly Laboratory Tests Test 11/16/17 16:48 11/17/17 04:30 Arterial Blood pH 7.490 (7.350-7.450) Arterial Blood Partial Pressure CO2 32.3 mmHg (35.0-45.0) L Arterial Blood Partial Pressure O2 56.0 mmHg (75.0-100.0) L Arterial Blood HCO3 24.1 mmol/L (22.0-26.0) Arterial Blood Oxygen Saturation 89.0 % (92.0-98.0) L Arterial Blood Base Excess 1.0 Dipak Test Positive White Blood Count 24.7 K/UL (4.8-10.8) *H Red Blood Count 3.01 M/UL (4.70-6.10) L Hemoglobin 9.0 G/DL (14.2-18.0) L Hematocrit 27.1 % (42.0-52.0) L Mean Corpuscular Volume 90 FL (80-99) Mean Corpuscular Hemoglobin 30.0 PG (27.0-31.0) Mean Corpuscular Hemoglobin Concent 33.3 G/DL (32.0-36.0) Red Cell Distribution Width 15.0 % (11.6-14.8) H Platelet Count 489 K/UL (150-450) H Mean Platelet Volume 5.9 FL (6.5-10.1) L Neutrophils (%) (Auto) % (45.0-75.0) Lymphocytes (%) (Auto) % (20.0-45.0) Monocytes (%) (Auto) % (1.0-10.0) Eosinophils (%) (Auto) % (0.0-3.0) Basophils (%) (Auto) % (0.0-2.0) Differential Total Cells Counted 100 Neutrophils % (Manual) 84 % (45-75) H Lymphocytes % (Manual) 9 % (20-45) L Monocytes % (Manual) 6 % (1-10) Eosinophils % (Manual) 1 % (0-3) Basophils % (Manual) 0 % (0-2) Band Neutrophils 0 % (0-8) Platelet Estimate Adequate Platelet Morphology Normal Hypochromasia 1+ Anisocytosis 1+ Sodium Level 146 MMOL/L (136-145) H Potassium Level 3.3 MMOL/L (3.5-5.1) L Chloride Level 113 MMOL/L (98-107) H Carbon Dioxide Level 27 MMOL/L (21-32) Anion Gap 6 mmol/L (5-15) Blood Urea Nitrogen 33 mg/dL (7-18) H Creatinine 1.4 MG/DL (0.55-1.30) H Estimat Glomerular Filtration Rate > 60 mL/min (>60) Glucose Level 108 MG/DL (74-106) H Calcium Level 8.1 MG/DL (8.5-10.1) L Phosphorus Level 3.7 MG/DL (2.5-4.9) Magnesium Level 2.0 MG/DL (1.8-2.4) Total Bilirubin 0.7 MG/DL (0.2-1.0) Aspartate Amino Transf (AST/SGOT) 21 U/L (15-37) Alanine Aminotransferase (ALT/SGPT) 16 U/L (12-78) Alkaline Phosphatase 166 U/L (46-116) H Total Protein 6.5 G/DL (6.4-8.2) Albumin 1.9 G/DL (3.4-5.0) L Globulin 4.6 g/dL Albumin/Globulin Ratio 0.4 (1.0-2.7) L Current Medications Medications (Trade) Dose Ordered Sig/Olvin Route PRN Reason Start Time Stop Time Status Last Admin Dose Admin Acetaminophen (Tylenol) 650 mg Q4H PRN RECTAL Mild Pain (Pain Scale 1-3) 10/30/17 21:00 11/20/17 20:59 11/13/17 20:55 Chlorhexidine Gluconate (Pamela-Hex 2%) 1 applic DAILY@2000 TOPIC 10/31/17 22:00 11/23/17 21:59 11/16/17 20:28 Diltiazem HCl (Cardizem) 60 mg EVERY 6 HOURS GT 11/17/17 00:00 12/17/17 00:00 11/17/17 13:09 Fidaxomicin (Dificid) 200 mg EVERY 12 HOURS ORAL 11/15/17 12:00 11/24/17 21:01 11/17/17 10:25 Lactobacillus Acidophilus (Culturelle) 1 tab THREE TIMES A DAY GT 11/03/17 13:00 12/03/17 12:59 11/17/17 13:09 Levalbuterol HCl (Xopenex) 1.25 mg Q4HRT HHN 11/14/17 11:00 11/19/17 10:59 11/17/17 14:29 Lorazepam (Ativan 2mg/ml 1ml) 2 mg Q4H PRN IV For Anxiety 11/10/17 16:45 11/17/17 23:59 11/10/17 18:42 Metoclopramide HCl (Reglan) 5 mg Q6H PRN GT Irrectractable Nausea/Vomiting 10/30/17 21:00 11/29/17 20:59 11/12/17 09:32 Metoprolol Tartrate (Lopressor) 50 mg Q8HR GT 11/14/17 14:00 12/13/17 20:59 11/17/17 15:02 Ondansetron HCl (Zofran) 4 mg Q6H PRN IVP Nausea & Vomiting 10/30/17 21:00 11/29/17 20:59 Tigecycline 50 mg/ Dextrose 110 ml @ 220 mls/hr Q12HR@0500,1700 IVPB 11/12/17 05:00 11/19/17 04:59 11/17/17 05:11 Vancomycin HCl (Vancomycin) 125 mg FOUR TIMES A DAY GT 11/11/17 21:00 11/18/17 20:59 11/17/17 15:23 FAUSTINO AGARWAL M.D. Nov 17, 2017 15:33
[2017-11-17 16:00] VITALS: BP 129/69
[2017-11-17] MEDS ORDERED: NS 275ml ONE (16:25)
[2017-11-17] MEDS ORDERED: Tubing IV Secondary IV ONE (16:25)
[2017-11-17] MEDS ORDERED: Levalbuterol Inh UD 1.25mg/0.5ml HHN PRN (17:00)
[2017-11-17 20:00] VITALS: BP 146/88
[2017-11-17] MEDS: Dyna-Hex 2% Top Sol 2oz TOPIC SCH (22:05)
[2017-11-18] VITALS (36 sets, daily range): BP systolic 74–157; BP diastolic 38–102
[2017-11-18] MEDS: Levalbuterol Inh UD 1.25mg/0.5ml HHN SCH ×5 (04:24→23:55)
[2017-11-18 05:27] LABS: HEMATOCRIT 29.1 % (42.0-52.0); HEMOGLOBIN 9.3 G/DL (14.2-18.0); MEAN CORPUSCULAR VOLUME 91 FL (80-99); PLATELET COUNT 568 K/UL (150-450); RED BLOOD COUNT 3.18 M/UL (4.70-6.10); RED CELL DISTRIBUTION WIDTH 15.1 % (11.6-14.8)
[2017-11-18] MEDS: Tigecycline 50 MG in D5W 110 ML IVPB SCH (05:28)
[2017-11-18] MEDS: dilTIAZem HCl 30mg tab GT SCH ×2 (05:29)
[2017-11-18] MEDS: Metoprolol Tartrate 50mg tab GT SCH ×3 (05:29→21:42)
[2017-11-18 05:32] LABS: WHITE BLOOD COUNT 30.7 K/UL (4.8-10.8)
[2017-11-18 06:07] LABS: ALANINE AMINOTRANSFERASE 24 U/L (12-78); ALBUMIN 1.5 G/DL (3.4-5.0); ALBUMIN/GLOBULIN RATIO 0.4 (1.0-2.7); ALKALINE PHOSPHATASE 162 U/L (46-116); ANION GAP 8 mmol/L (5-15); ASPARTATE AMINO TRANSFERASE 35 U/L (15-37); BILIRUBIN,TOTAL 0.5 MG/DL (0.2-1.0); BLOOD UREA NITROGEN 46 mg/dL (7-18); CALCIUM 8.6 MG/DL (8.5-10.1); CARBON DIOXIDE 23 MMOL/L (21-32); CHLORIDE 117 MMOL/L (98-107); CREATININE 1.6 MG/DL (0.55-1.30); PHOSPHORUS 5.3 MG/DL (2.5-4.9); POTASSIUM 4.5 MMOL/L (3.5-5.1); SODIUM 148 MMOL/L (136-145)
--- NOTE | 2017-11-18 06:30 | Emergency Room Report ---
History of Present Illness General Chief Complaint: Altered Level of Consciousness Source: Medical Record, PMD Present Illness Allergies: Uncoded Allergies: TAPE (Adverse Reaction, Mild, 11/09/17) REDNESS AT TAPE SITE WHEN APPLIED TAPE Nursing Documentation-[facility] Past Medical History: No History, Except For Hx Hypertension: Yes Hx Cancer: No Hx Gastrointestinal Problems: Yes - dysphagia Hx Neurological Problems: Yes - muscle weakness, hx of fall, obstructive hydrocephalus Hx Cerebrovascular Accident: Yes Hx Seizures: Yes Hx Epilepsy: Yes Physical Exam Vital Signs Date Time Temp Pulse Resp B/P (MAP) Pulse Ox O2 Delivery O2 Flow Rate FiO2 10/11/17 18:51 102.9 112 20 112/82 99 Non-Rebreather 15.0 10/11/17 20:57 30 Procedures Critical Care Time Critical Care Time i. I feel this is a highly complex case requiring extensive working including EKG/Rhythm strip, Xray/CT/US, Blood/urine lab work, repeat exams while in ED, and administration of strong opiates/narcotics for pain control, admission to hospital or close patient follow up. Total time: 30 min bedside evaluation and treatment excludes procedures (EKG). Reason for critical care: Cardiac arrest Possible complications: hypotension, hypertension, IL, shock, arrhythmias, metabolic acidosis, end organ damage, respiratory failure. Interventions: Chest compressions, epinephrine, calcium, bicarbonate Course: Patient presenting in asystole. Chest compressions started. Patient already intubated. Patient given epinephrine 3, given calcium and bicarbonate with return of pulses. Consultations: nursing staff, EMS, family Performed by: Dr Brown Tolerated well condition = critical j. because of unstable vital signs this patient had a condition that could potentially threaten life or limb. I feel this is a critical patient who required my full attention while patient was considered critical. Total Critical Care Time excluding procedures was greater than 35 minutes CPR/Code Blue CPR/Code Blue Narrative see code blue sheet for full narrative Medical Decision Making Diagnostic Impression: Primary Impression: Sepsis Additional Impressions: Fever Renal failure Pneumonia Lactic acidosis ER Course I was called to this CODE BLUE in the [facility]. Patient was given metoprolol and became more bradycardic and ultimately lost pulses. Chest compressions started. Rhythm was asystole. Patient given epinephrine 3, given calcium and bicarbonate. Patient ultimately regained pulses. Blood pressure improved. Patient will be moved to ICU. Admitting physicians informed of patient's status Last Vital Signs Date Time Temp Pulse Resp B/P (MAP) Pulse Ox O2 Delivery O2 Flow Rate FiO2 11/18/17 05:06 78 36 100 11/18/17 05:00 91/60 82 Mechanical Ventilator 11/18/17 04:00 97.2 97.2 11/16/17 16:32 40.0 Status: improved Disposition: ADMITTED INPATIENT Condition: Critical Referrals: NON PHYSICIAN (PCP) KISHORE BROWN M.D. Nov 18, 2017 06:30
[2017-11-18] MEDS ORDERED: Levalbuterol Inh UD 1.25mg/0.5ml HHN PRN (08:00)
[2017-11-18] MEDS ORDERED: Acetaminophen 650 MG SUPP RECTAL PRN (09:00)
[2017-11-18] MEDS ORDERED: Metoclopramide 10mg/10ml Liq GT PRN (09:00)
[2017-11-18] MEDS: Lactobacillus-GG tablet GT SCH ×3 (09:19→17:21)
[2017-11-18] MEDS: Vancomycin oral 125mg/2.5ml GT SCH ×4 (09:19→21:22)
--- NOTE | 2017-11-18 09:58 | Pulmonolgy Critical Care Note ---
Critical Care - Asmt/Plan Problems: (1) Acute respiratory failure (2) Collapse of right lung (3) Acute renal failure (ARF) (4) Pneumonia (5) Sepsis (6) Epileptic seizure, generalized (7) Feeding by G-tube (8) C. 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 - Objective Last 24 Hour Vital Signs Date Time Temp Pulse Resp B/P (MAP) Pulse Ox O2 Delivery O2 Flow Rate FiO2 11/18/17 09:04 97 37 100 11/18/17 08:00 81/53 11/18/17 08:00 100 11/18/17 07:00 84 26 74/44 88 Mechanical Ventilator 100 11/18/17 06:58 87 23 83 Mechanical Ventilator 100 11/18/17 06:56 84 25 100 11/18/17 06:50 84 25 79 Mechanical Ventilator 100 11/18/17 06:00 81 35 79/45 65 Mechanical Ventilator 100 11/18/17 05:06 78 36 100 11/18/17 05:00 89 35 91/60 82 Mechanical Ventilator 100 11/18/17 04:00 83 11/18/17 04:00 130/92 11/18/17 04:00 97.2 83 26 122/79 95 Mechanical Ventilator 100 97.2 11/18/17 04:00 100 11/18/17 03:29 86 34 86 Mechanical Ventilator 100 11/18/17 03:24 86 36 87 Mechanical Ventilator 100 11/18/17 03:13 71 32 100 11/18/17 03:00 85 30 130/92 90 Mechanical Ventilator 100 11/18/17 03:00 137/84 11/18/17 02:00 85 29 137/87 85 Mechanical Ventilator 100 11/18/17 02:00 123/69 11/18/17 01:02 83 28 100 11/18/17 01:00 88 28 123/73 90 Mechanical Ventilator 100 11/18/17 01:00 123/73 11/18/17 00:05 100 11/18/17 00:00 96.9 89 25 123/69 84 Mechanical Ventilator 100 96.9 11/18/17 00:00 77/39 11/18/17 00:00 93 11/17/17 23:07 56 36 100 11/17/17 23:04 Mechanical Ventilator 100 11/17/17 23:04 Mechanical Ventilator 100 11/17/17 22:05 91 146/88 11/17/17 20:53 91 30 100 11/17/17 20:00 100 11/17/17 20:00 85 11/17/17 20:00 97.5 90 17 146/88 90 Mechanical Ventilator 100 97.5 11/17/17 19:11 89 36 92 Mechanical Ventilator 100 11/17/17 19:07 89 32 100 11/17/17 19:04 87 38 90 Mechanical Ventilator 100 11/17/17 17:15 75 129/68 11/17/17 16:55 76 30 100 11/17/17 16:00 100 11/17/17 16:00 97.4 75 36 129/69 89 Mechanical Ventilator 100 97.4 11/17/17 16:00 84 11/17/17 15:02 94 131/88 11/17/17 14:48 94 24 94 Mechanical Ventilator 100 11/17/17 14:31 94 26 100 11/17/17 14:30 97 29 90 Mechanical Ventilator 100 11/17/17 13:09 97 131/88 11/17/17 12:47 97 32 100 11/17/17 12:00 98.1 91 28 131/88 100 Mechanical Ventilator 100 98.1 11/17/17 12:00 100 11/17/17 11:45 91 11/17/17 10:55 96 21 96 Mechanical Ventilator 100 11/17/17 10:45 96 28 100 11/17/17 10:43 96 28 96 Mechanical Ventilator 100 Status: awake Condition: critical Neck: full ROM Lungs: clear Heart: HR/BP stable, HR/BP unstable Abdomen: non-tender, active bowel sounds Extremities: no C/C/E, edema Decubiti: location, stage Micro: Microbiology Date/Time Source Procedure Growth Status 11/17/17 16:30 Urine,Clean Catch Urine Culture - Preliminary Gram Negative Bacillus 1 Resulted Critical Care - Subjective ROS Limited/Unobtainable: No Interval Events: had one episode of cardiac arrest last night, was revived FI02: 100 Vent Support Breath Rate: 18 Vent Support Mode: AC Vent Tidal Volume: 700 Sputum Amount: Small PEEP: 10.0 PIP: 40 Tube Feeding Amount: 50 I&O: Intake and Output 11/17/17 11/18/17 19:00 07:00 Intake Total 1200.0 ml 220 ml Balance 1200.0 ml 220 ml IV Total 680.0 ml 120 ml Tube Feeding 400 ml 100 ml Other 120 ml # Voids 97 CXR: Laboratory Tests Test 11/18/17 00:04 11/18/17 04:30 11/18/17 09:10 Arterial Blood pH 7.216 (7.350-7.450) 7.430 (7.350-7.450) Arterial Blood Partial Pressure CO2 47.1 mmHg (35.0-45.0) H 28.7 mmHg (35.0-45.0) L Arterial Blood Partial Pressure O2 56.4 mmHg (75.0-100.0) L 45.5 mmHg (75.0-100.0) Arterial Blood HCO3 18.7 mmol/L (22.0-26.0) L 18.6 mmol/L (22.0-26.0) L Arterial Blood Oxygen Saturation 79.3 % (92.0-98.0) L 82.6 % (92.0-98.0) L Arterial Blood Base Excess -8.7 -4.8 Dipak Test Positive Positive White Blood Count 30.7 K/UL (4.8-10.8) *H Red Blood Count 3.18 M/UL (4.70-6.10) L Hemoglobin 9.3 G/DL (14.2-18.0) L Hematocrit 29.1 % (42.0-52.0) L Mean Corpuscular Volume 91 FL (80-99) Mean Corpuscular Hemoglobin 29.1 PG (27.0-31.0) Mean Corpuscular Hemoglobin Concent 31.8 G/DL (32.0-36.0) L Red Cell Distribution Width 15.1 % (11.6-14.8) H Platelet Count 568 K/UL (150-450) H Mean Platelet Volume 5.7 FL (6.5-10.1) L Neutrophils (%) (Auto) % (45.0-75.0) Lymphocytes (%) (Auto) % (20.0-45.0) Monocytes (%) (Auto) % (1.0-10.0) Eosinophils (%) (Auto) % (0.0-3.0) Basophils (%) (Auto) % (0.0-2.0) Neutrophils % (Manual) Pending Lymphocytes % (Manual) Pending Platelet Estimate Pending Platelet Morphology Pending Sodium Level 148 MMOL/L (136-145) H Potassium Level 4.5 MMOL/L (3.5-5.1) Chloride Level 117 MMOL/L (98-107) H Carbon Dioxide Level 23 MMOL/L (21-32) Anion Gap 8 mmol/L (5-15) Blood Urea Nitrogen 46 mg/dL (7-18) H Creatinine 1.6 MG/DL (0.55-1.30) H Estimat Glomerular Filtration Rate 53.6 mL/min (>60) Glucose Level 115 MG/DL (74-106) H Calcium Level 8.6 MG/DL (8.5-10.1) Phosphorus Level 5.3 MG/DL (2.5-4.9) H Magnesium Level 1.9 MG/DL (1.8-2.4) Total Bilirubin 0.5 MG/DL (0.2-1.0) Aspartate Amino Transf (AST/SGOT) 35 U/L (15-37) Alanine Aminotransferase (ALT/SGPT) 24 U/L (12-78) Alkaline Phosphatase 162 U/L (46-116) H Total Protein 5.7 G/DL (6.4-8.2) L Albumin 1.5 G/DL (3.4-5.0) L Globulin 4.2 g/dL Albumin/Globulin Ratio 0.4 (1.0-2.7) L ET-Tube: 8.0 ET Position: 24 Labs: Laboratory Tests Test 11/18/17 00:04 11/18/17 04:30 11/18/17 09:10 Arterial Blood pH 7.216 (7.350-7.450) 7.430 (7.350-7.450) Arterial Blood Partial Pressure CO2 47.1 mmHg (35.0-45.0) H 28.7 mmHg (35.0-45.0) L Arterial Blood Partial Pressure O2 56.4 mmHg (75.0-100.0) L 45.5 mmHg (75.0-100.0) Arterial Blood HCO3 18.7 mmol/L (22.0-26.0) L 18.6 mmol/L (22.0-26.0) L Arterial Blood Oxygen Saturation 79.3 % (92.0-98.0) L 82.6 % (92.0-98.0) L Arterial Blood Base Excess -8.7 -4.8 Dipak Test Positive Positive White Blood Count 30.7 K/UL (4.8-10.8) *H Red Blood Count 3.18 M/UL (4.70-6.10) L Hemoglobin 9.3 G/DL (14.2-18.0) L Hematocrit 29.1 % (42.0-52.0) L Mean Corpuscular Volume 91 FL (80-99) Mean Corpuscular Hemoglobin 29.1 PG (27.0-31.0) Mean Corpuscular Hemoglobin Concent 31.8 G/DL (32.0-36.0) L Red Cell Distribution Width 15.1 % (11.6-14.8) H Platelet Count 568 K/UL (150-450) H Mean Platelet Volume 5.7 FL (6.5-10.1) L Neutrophils (%) (Auto) % (45.0-75.0) Lymphocytes (%) (Auto) % (20.0-45.0) Monocytes (%) (Auto) % (1.0-10.0) Eosinophils (%) (Auto) % (0.0-3.0) Basophils (%) (Auto) % (0.0-2.0) Neutrophils % (Manual) Pending Lymphocytes % (Manual) Pending Platelet Estimate Pending Platelet Morphology Pending Sodium Level 148 MMOL/L (136-145) H Potassium Level 4.5 MMOL/L (3.5-5.1) Chloride Level 117 MMOL/L (98-107) H Carbon Dioxide Level 23 MMOL/L (21-32) Anion Gap 8 mmol/L (5-15) Blood Urea Nitrogen 46 mg/dL (7-18) H Creatinine 1.6 MG/DL (0.55-1.30) H Estimat Glomerular Filtration Rate 53.6 mL/min (>60) Glucose Level 115 MG/DL (74-106) H Calcium Level 8.6 MG/DL (8.5-10.1) Phosphorus Level 5.3 MG/DL (2.5-4.9) H Magnesium Level 1.9 MG/DL (1.8-2.4) Total Bilirubin 0.5 MG/DL (0.2-1.0) Aspartate Amino Transf (AST/SGOT) 35 U/L (15-37) Alanine Aminotransferase (ALT/SGPT) 24 U/L (12-78) Alkaline Phosphatase 162 U/L (46-116) H Total Protein 5.7 G/DL (6.4-8.2) L Albumin 1.5 G/DL (3.4-5.0) L Globulin 4.2 g/dL Albumin/Globulin Ratio 0.4 (1.0-2.7) L EDDIE COLES Nov 18, 2017 09:58
--- NOTE | 2017-11-18 10:44 | Diagnostic Imaging Report ---
Indication: Shortness of breath Technique: XRAY Chest 1v Comparison: 11/17/2017 Findings: There is improved aeration of the left mid and lower lung melo. Bilateral interstitial and airspace edema/infiltrates are present. Right subclavian central line and tracheostomy are unchanged. Impression: Improved aeration of the left mid and lower lung melo. Persistence of bilateral interstitial and airspace edema/infiltrates.
[2017-11-18] MEDS ORDERED: dilTIAZem HCl 30mg tab GT SCH (12:00)
[2017-11-18] MEDS: Meropenem 2 GM in NS 110 ML IVPB SCH (14:59)
--- NOTE | 2017-11-18 16:04 | Nephrology Progress Note ---
Assessment/Plan Problem List: (1) Acute renal failure (ARF) Assessment: resolving (2) Respiratory failure (3) Shock liver Assessment Cr rising post CODE JULIA , due to Shock , Hemorrhagic / Septic / C dif colitis worsenning anemia Off Pressors- Shock liver resolving High Troponin: CT Bradycardic - Vfib cardiac arrest 10/26 likely 2ry to hemorrhagic shock (drop Hgb 10.8 to 5) - GIB- Fever, ongoing Leukocytosis, worsening after code E.coli UTI w/ bacteremia Acute hypoxic resp failure- s/p Trach . Plan Plan: dialyse 11/10 next ? ? dialysis Cath DCed 11/16 watch renal parameters Per ID has new cath right chest will plan to removed K IV as needed right groin cath removed being transfused add Renvela and Lactobacillus BP stablized start GT feeding HD trial as needed- on C dif treatment protocol monitor urine out put and Renal parameters discussed with RN Subjective ROS Limited/Unobtainable: Yes Interval Events/Complaints back in ICU Objective Objective Last 24 Hour Vital Signs Date Time Temp Pulse Resp B/P (MAP) Pulse Ox O2 Delivery O2 Flow Rate FiO2 11/18/17 15:30 102 32 155/89 90 Mechanical Ventilator 100 11/18/17 15:24 104 36 100 11/18/17 15:23 102 36 91 Mechanical Ventilator 100 11/18/17 15:10 103 29 81 Mechanical Ventilator 100 11/18/17 15:00 105 31 146/88 91 Mechanical Ventilator 100 11/18/17 14:30 103 33 136/83 94 Mechanical Ventilator 100 11/18/17 14:00 102 36 116/89 94 Mechanical Ventilator 100 11/18/17 13:41 103 123/65 11/18/17 13:00 98.6 110 30 110/44 95 Mechanical Ventilator 100 98.6 11/18/17 12:40 103 37 100 11/18/17 12:00 100 11/18/17 12:00 103 37 122/77 95 Mechanical Ventilator 100 11/18/17 12:00 104 11/18/17 12:00 103 108/70 11/18/17 12:00 108/70 11/18/17 11:30 100 38 121/81 95 Mechanical Ventilator 100 11/18/17 11:10 98 29 91 Mechanical Ventilator 100 11/18/17 11:07 100 37 100 11/18/17 11:00 102 36 87 Mechanical Ventilator 100 11/18/17 11:00 100 30 142/82 95 Mechanical Ventilator 100 11/18/17 11:00 132/96 11/18/17 10:30 104 31 157/88 93 Mechanical Ventilator 100 11/18/17 10:30 147/90 11/18/17 10:00 90 30 139/73 82 Mechanical Ventilator 100 11/18/17 09:45 71/45 11/18/17 09:30 94 35 76/49 82 Mechanical Ventilator 100 11/18/17 09:04 97 37 100 11/18/17 09:00 96 36 104/70 81 Mechanical Ventilator 100 11/18/17 08:45 91 25 112/50 83 Mechanical Ventilator 100 11/18/17 08:45 114/69 11/18/17 08:30 117/73 11/18/17 08:30 86 28 117/82 83 Mechanical Ventilator 100 11/18/17 08:15 167/81 11/18/17 08:15 84 29 129/102 83 Mechanical Ventilator 100 11/18/17 08:00 81/53 11/18/17 08:00 95 11/18/17 08:00 95 35 81/53 86 Mechanical Ventilator 100 11/18/17 08:00 100 11/18/17 07:30 91 27 84/38 86 Mechanical Ventilator 100 11/18/17 07:00 84 26 74/44 88 Mechanical Ventilator 100 11/18/17 07:00 74/38 11/18/17 06:58 87 23 83 Mechanical Ventilator 100 11/18/17 06:56 84 25 100 11/18/17 06:50 84 25 79 Mechanical Ventilator 100 11/18/17 06:00 81 35 79/45 65 Mechanical Ventilator 100 11/18/17 05:06 78 36 100 11/18/17 05:00 89 35 91/60 82 Mechanical Ventilator 100 11/18/17 04:00 83 11/18/17 04:00 130/92 11/18/17 04:00 97.2 83 26 122/79 95 Mechanical Ventilator 100 97.2 11/18/17 04:00 100 11/18/17 03:29 86 34 86 Mechanical Ventilator 100 11/18/17 03:24 86 36 87 Mechanical Ventilator 100 11/18/17 03:13 71 32 100 11/18/17 03:00 85 30 130/92 90 Mechanical Ventilator 100 11/18/17 03:00 137/84 11/18/17 02:00 85 29 137/87 85 Mechanical Ventilator 100 11/18/17 02:00 123/69 11/18/17 01:02 83 28 100 11/18/17 01:00 88 28 123/73 90 Mechanical Ventilator 100 11/18/17 01:00 123/73 11/18/17 00:05 100 11/18/17 00:00 96.9 89 25 123/69 84 Mechanical Ventilator 100 96.9 11/18/17 00:00 77/39 11/18/17 00:00 93 11/17/17 23:07 56 36 100 11/17/17 23:04 Mechanical Ventilator 100 11/17/17 23:04 Mechanical Ventilator 100 11/17/17 22:05 91 146/88 11/17/17 20:53 91 30 100 11/17/17 20:00 100 11/17/17 20:00 85 11/17/17 20:00 97.5 90 17 146/88 90 Mechanical Ventilator 100 97.5 11/17/17 19:11 89 36 92 Mechanical Ventilator 100 11/17/17 19:07 89 32 100 11/17/17 19:04 87 38 90 Mechanical Ventilator 100 11/17/17 17:15 75 129/68 11/17/17 16:55 76 30 100 Intake and Output 11/17/17 11/18/17 19:00 07:00 Intake Total 1310.0 ml 277.15 ml Output Total 450 ml Balance 860.0 ml 277.15 ml IV Total 680.0 ml 177.15 ml Tube Feeding 450 ml 100 ml Other 180 ml Output Urine Total 450 ml # Voids 97 # Bowel Movements 50 Laboratory Tests 11/18/17 00:04: Arterial Blood pH 7.216*L, Arterial Blood Partial Pressure CO2 47.1H, Arterial Blood Partial Pressure O2 56.4L, Arterial Blood HCO3 18.7L, Arterial Blood Oxygen Saturation 79.3L, Arterial Blood Base Excess -8.7, Dipak Test Positive 11/18/17 04:30: White Blood Count 30.7*H, Red Blood Count 3.18L, Hemoglobin 9.3L, Hematocrit 29.1L, Mean Corpuscular Volume 91, Mean Corpuscular Hemoglobin 29.1, Mean Corpuscular Hemoglobin Concent 31.8L, Red Cell Distribution Width 15.1H, Platelet Count 568H, Mean Platelet Volume 5.7L, Neutrophils (%) (Auto) , Lymphocytes (%) (Auto) , Monocytes (%) (Auto) , Eosinophils (%) (Auto) , Basophils (%) (Auto) , Differential Total Cells Counted 100, Neutrophils % ( Manual) 87H, Lymphocytes % (Manual) 7L, Monocytes % (Manual) 4, Eosinophils % ( Manual) 0, Basophils % (Manual) 0, Band Neutrophils 2, Platelet Estimate Adequate, Platelet Morphology Normal, Hypochromasia 2+, Anisocytosis 1+, Sodium Level 148H, Potassium Level 4.5, Chloride Level 117H, Carbon Dioxide Level 23, Anion Gap 8, Blood Urea Nitrogen 46H, Creatinine 1.6H, Estimat Glomerular Filtration Rate 53.6, Glucose Level 115H, Calcium Level 8.6, Phosphorus Level 5.3H, Magnesium Level 1.9, Total Bilirubin 0.5, Aspartate Amino Transf (AST/SGOT ) 35, Alanine Aminotransferase (ALT/SGPT) 24, Alkaline Phosphatase 162H, Total Protein 5.7L, Albumin 1.5L, Globulin 4.2, Albumin/Globulin Ratio 0.4L 11/18/17 09:10: Arterial Blood pH 7.430, Arterial Blood Partial Pressure CO2 28.7L, Arterial Blood Partial Pressure O2 45.5*L, Arterial Blood HCO3 18.6L, Arterial Blood Oxygen Saturation 82.6L, Arterial Blood Base Excess -4.8, Dipak Test Positive Height (Feet): 5 Height (Inches): 6.00 Weight (Pounds): 215 Objective no other change YVES SINHA Nov 18, 2017 16:04
--- NOTE | 2017-11-18 16:11 | Cardiology Progress Note ---
Assessment/Plan Status: not improved, deteriorating Status Narrative Pt s/p resuscitated asystolic cardiac arrest - ? metabolic factors/sepsis, in addition to meds Increasing WBC noted, and XR w/ bilateral infiltrates - ? pneumonia vs ARDS Difficulty maintaining sats despite 100% fio2 Assessment/Plan Will dc diltiazem and continue metoprolol. Continue low dose levophed support. IV antibiotic adjustment per ID. Further management of respiratory failure per Dr. Martines Overall prognosis poor. Subjective ROS Limited/Unobtainable: Yes Subjective Cardiology for Dr. Chin Pt suffered an asystolic cardiopulm arrest last pm - resuscitated and transferred back to ICU currently on iv levophed Objective Last 24 Hour Vital Signs Date Time Temp Pulse Resp B/P (MAP) Pulse Ox O2 Delivery O2 Flow Rate FiO2 11/18/17 15:30 102 32 155/89 90 Mechanical Ventilator 100 11/18/17 15:24 104 36 100 11/18/17 15:23 102 36 91 Mechanical Ventilator 100 11/18/17 15:10 103 29 81 Mechanical Ventilator 100 11/18/17 15:00 105 31 146/88 91 Mechanical Ventilator 100 11/18/17 14:30 103 33 136/83 94 Mechanical Ventilator 100 11/18/17 14:00 102 36 116/89 94 Mechanical Ventilator 100 11/18/17 13:41 103 123/65 11/18/17 13:00 98.6 110 30 110/44 95 Mechanical Ventilator 100 98.6 11/18/17 12:40 103 37 100 11/18/17 12:00 100 11/18/17 12:00 103 37 122/77 95 Mechanical Ventilator 100 11/18/17 12:00 104 11/18/17 12:00 103 108/70 11/18/17 12:00 108/70 11/18/17 11:30 100 38 121/81 95 Mechanical Ventilator 100 11/18/17 11:10 98 29 91 Mechanical Ventilator 100 11/18/17 11:07 100 37 100 11/18/17 11:00 102 36 87 Mechanical Ventilator 100 11/18/17 11:00 100 30 142/82 95 Mechanical Ventilator 100 11/18/17 11:00 132/96 11/18/17 10:30 104 31 157/88 93 Mechanical Ventilator 100 11/18/17 10:30 147/90 11/18/17 10:00 90 30 139/73 82 Mechanical Ventilator 100 11/18/17 09:45 71/45 11/18/17 09:30 94 35 76/49 82 Mechanical Ventilator 100 11/18/17 09:04 97 37 100 11/18/17 09:00 96 36 104/70 81 Mechanical Ventilator 100 11/18/17 08:45 91 25 112/50 83 Mechanical Ventilator 100 11/18/17 08:45 114/69 11/18/17 08:30 117/73 11/18/17 08:30 86 28 117/82 83 Mechanical Ventilator 100 11/18/17 08:15 167/81 11/18/17 08:15 84 29 129/102 83 Mechanical Ventilator 100 11/18/17 08:00 81/53 11/18/17 08:00 95 11/18/17 08:00 95 35 81/53 86 Mechanical Ventilator 100 11/18/17 08:00 100 11/18/17 07:30 91 27 84/38 86 Mechanical Ventilator 100 11/18/17 07:00 84 26 74/44 88 Mechanical Ventilator 100 11/18/17 07:00 74/38 11/18/17 06:58 87 23 83 Mechanical Ventilator 100 11/18/17 06:56 84 25 100 11/18/17 06:50 84 25 79 Mechanical Ventilator 100 11/18/17 06:00 81 35 79/45 65 Mechanical Ventilator 100 11/18/17 05:06 78 36 100 11/18/17 05:00 89 35 91/60 82 Mechanical Ventilator 100 11/18/17 04:00 83 11/18/17 04:00 130/92 11/18/17 04:00 97.2 83 26 122/79 95 Mechanical Ventilator 100 97.2 11/18/17 04:00 100 11/18/17 03:29 86 34 86 Mechanical Ventilator 100 11/18/17 03:24 86 36 87 Mechanical Ventilator 100 11/18/17 03:13 71 32 100 11/18/17 03:00 85 30 130/92 90 Mechanical Ventilator 100 11/18/17 03:00 137/84 11/18/17 02:00 85 29 137/87 85 Mechanical Ventilator 100 11/18/17 02:00 123/69 11/18/17 01:02 83 28 100 11/18/17 01:00 88 28 123/73 90 Mechanical Ventilator 100 11/18/17 01:00 123/73 11/18/17 00:05 100 11/18/17 00:00 96.9 89 25 123/69 84 Mechanical Ventilator 100 96.9 11/18/17 00:00 77/39 11/18/17 00:00 93 11/17/17 23:07 56 36 100 11/17/17 23:04 Mechanical Ventilator 100 11/17/17 23:04 Mechanical Ventilator 100 11/17/17 22:05 91 146/88 11/17/17 20:53 91 30 100 11/17/17 20:00 100 11/17/17 20:00 85 11/17/17 20:00 97.5 90 17 146/88 90 Mechanical Ventilator 100 97.5 11/17/17 19:11 89 36 92 Mechanical Ventilator 100 11/17/17 19:07 89 32 100 11/17/17 19:04 87 38 90 Mechanical Ventilator 100 11/17/17 17:15 75 129/68 11/17/17 16:55 76 30 100 General Appearance: no apparent distress, on vent EENT: PERRL/EOMI Rhythm: NSR, ST Cardiovascular: regular rhythm, tachycardia Respiratory/Chest: other - coarse BS bilat Abdomen: non tender, soft Extremities: no swelling Intake and Output 11/17/17 11/18/17 19:00 07:00 Intake Total 1310.0 ml 277.15 ml Output Total 450 ml Balance 860.0 ml 277.15 ml IV Total 680.0 ml 177.15 ml Tube Feeding 450 ml 100 ml Other 180 ml Output Urine Total 450 ml # Voids 97 # Bowel Movements 50 Laboratory Tests Test 11/18/17 00:04 11/18/17 04:30 11/18/17 09:10 Arterial Blood pH 7.216 (7.350-7.450) 7.430 (7.350-7.450) Arterial Blood Partial Pressure CO2 47.1 mmHg (35.0-45.0) H 28.7 mmHg (35.0-45.0) L Arterial Blood Partial Pressure O2 56.4 mmHg (75.0-100.0) L 45.5 mmHg (75.0-100.0) Arterial Blood HCO3 18.7 mmol/L (22.0-26.0) L 18.6 mmol/L (22.0-26.0) L Arterial Blood Oxygen Saturation 79.3 % (92.0-98.0) L 82.6 % (92.0-98.0) L Arterial Blood Base Excess -8.7 -4.8 Dipak Test Positive Positive White Blood Count 30.7 K/UL (4.8-10.8) *H Red Blood Count 3.18 M/UL (4.70-6.10) L Hemoglobin 9.3 G/DL (14.2-18.0) L Hematocrit 29.1 % (42.0-52.0) L Mean Corpuscular Volume 91 FL (80-99) Mean Corpuscular Hemoglobin 29.1 PG (27.0-31.0) Mean Corpuscular Hemoglobin Concent 31.8 G/DL (32.0-36.0) L Red Cell Distribution Width 15.1 % (11.6-14.8) H Platelet Count 568 K/UL (150-450) H Mean Platelet Volume 5.7 FL (6.5-10.1) L Neutrophils (%) (Auto) % (45.0-75.0) Lymphocytes (%) (Auto) % (20.0-45.0) Monocytes (%) (Auto) % (1.0-10.0) Eosinophils (%) (Auto) % (0.0-3.0) Basophils (%) (Auto) % (0.0-2.0) Differential Total Cells Counted 100 Neutrophils % (Manual) 87 % (45-75) H Lymphocytes % (Manual) 7 % (20-45) L Monocytes % (Manual) 4 % (1-10) Eosinophils % (Manual) 0 % (0-3) Basophils % (Manual) 0 % (0-2) Band Neutrophils 2 % (0-8) Platelet Estimate Adequate Platelet Morphology Normal Hypochromasia 2+ Anisocytosis 1+ Sodium Level 148 MMOL/L (136-145) H Potassium Level 4.5 MMOL/L (3.5-5.1) Chloride Level 117 MMOL/L (98-107) H Carbon Dioxide Level 23 MMOL/L (21-32) Anion Gap 8 mmol/L (5-15) Blood Urea Nitrogen 46 mg/dL (7-18) H Creatinine 1.6 MG/DL (0.55-1.30) H Estimat Glomerular Filtration Rate 53.6 mL/min (>60) Glucose Level 115 MG/DL (74-106) H Calcium Level 8.6 MG/DL (8.5-10.1) Phosphorus Level 5.3 MG/DL (2.5-4.9) H Magnesium Level 1.9 MG/DL (1.8-2.4) Total Bilirubin 0.5 MG/DL (0.2-1.0) Aspartate Amino Transf (AST/SGOT) 35 U/L (15-37) Alanine Aminotransferase (ALT/SGPT) 24 U/L (12-78) Alkaline Phosphatase 162 U/L (46-116) H Total Protein 5.7 G/DL (6.4-8.2) L Albumin 1.5 G/DL (3.4-5.0) L Globulin 4.2 g/dL Albumin/Globulin Ratio 0.4 (1.0-2.7) L Microbiology Date/Time Source Procedure Growth Status 11/17/17 16:06 Sputum Gram Stain - Final Resulted 11/17/17 16:06 Sputum Sputum Culture Pending Resulted 11/17/17 16:30 Urine,Clean Catch Urine Culture - Preliminary Gram Negative Bacillus 1 Resulted MARLENY AUGUSTE Nov 18, 2017 16:11
[2017-11-18] MEDS ORDERED: Tigecycline 50 MG in D5W 110 ML IVPB SCH (17:00)
[2017-11-18] MEDS: Dyna-Hex 2% Top Sol 2oz TOPIC SCH (21:23)
[2017-11-19] VITALS (40 sets, daily range): BP systolic 90–173; BP diastolic 49–99
[2017-11-19] MEDS: Meropenem 2 GM in NS 110 ML IVPB SCH ×2 (02:35→14:11)
[2017-11-19] MEDS: Levalbuterol Inh UD 1.25mg/0.5ml HHN SCH ×5 (03:00→19:36)
[2017-11-19] MEDS: Metoprolol Tartrate 50mg tab GT SCH ×3 (06:00→21:29)
[2017-11-19 06:08] LABS: HEMATOCRIT 28.9 % (42.0-52.0); HEMOGLOBIN 9.4 G/DL (14.2-18.0); MEAN CORPUSCULAR VOLUME 91 FL (80-99); PLATELET COUNT 629 K/UL (150-450); RED BLOOD COUNT 3.18 M/UL (4.70-6.10); RED CELL DISTRIBUTION WIDTH 14.8 % (11.6-14.8)
[2017-11-19 06:28] LABS: ALANINE AMINOTRANSFERASE 14 U/L (12-78); ALBUMIN 1.6 G/DL (3.4-5.0); ALBUMIN/GLOBULIN RATIO 0.4 (1.0-2.7); ALKALINE PHOSPHATASE 150 U/L (46-116); ANION GAP 9 mmol/L (5-15); ASPARTATE AMINO TRANSFERASE 27 U/L (15-37); BILIRUBIN,TOTAL 0.5 MG/DL (0.2-1.0); BLOOD UREA NITROGEN 68 mg/dL (7-18); CALCIUM 8.4 MG/DL (8.5-10.1); CARBON DIOXIDE 26 MMOL/L (21-32); CHLORIDE 112 MMOL/L (98-107); CREATININE 2.9 MG/DL (0.55-1.30); PHOSPHORUS 5.8 MG/DL (2.5-4.9); POTASSIUM 4.1 MMOL/L (3.5-5.1); SODIUM 147 MMOL/L (136-145)
[2017-11-19 06:29] LABS: WHITE BLOOD COUNT 28.1 K/UL (4.8-10.8)
[2017-11-19] MEDS: Lactobacillus-GG tablet GT SCH ×3 (08:58→18:03)
[2017-11-19] MEDS: Vancomycin oral 125mg/2.5ml GT SCH ×4 (08:59→21:29)
--- NOTE | 2017-11-19 10:05 | Infectious Diseases Prog Note ---
Assessment/Plan Assessment/Plan s/p Asystole arrest 11/18 Shock POssible PNA and UTI -ucx GNR, no u/a done -sp cx GNRs -CXR: Improved aeration of the left mid and lower lung melo. Persistence of bilateral interstitial and airspace edema/infiltrates. C Diff +ve, diarrhea persists -CT abd/p wo 11/09: There is no obvious bowel obstruction. Fever, SP Leukocytosis,persistent -CXR: 10/30 : Slightly increased hazy opacity left lung base and obscuration of left hemidiaphragm, may reflect increased infiltrates and/or pleural fluid E.coli UTI w/ bacteremia ; s/p Rx -REnal US: Limited exam. No definite hydronephrosis. Empty bladder, containing a Cervantes catheter. Suspicion for Flu despite rapid test (+URI symptoms, sick contacts); s/p Rx ? Pneum 11/17 CXR : . Increasing opacification of the left mid and lower lung melo could represent partial lung collapse. Underlying pleural fluid not excluded. Elev Alk Ph no evid for Cholecystitis CT and US : Gallbladder wall edema nonspecific in nature - HIDA neg for Cholecystitis Hep B/C : Neg Acute hypoxic resp failure- intubated (10/20) , SP Trach 10/23 12/18 KUB : Distended small bowel. Ileus versus obstruction. SP cardiac arrest 10/26 SP hemorrhagic shock (drop Hgb 10.8 to 5)- 10/12 GIB- transaminitis due to shock improving sp JULIA and HD , HD cath removed 11/16 UGI bleed / Anemia SP EGD 10/18 and 10/26 Path: H Pylori Neg CVA with hemiplegia HTN cataract dysphagia Hx of fall CAD/CO CVA/TIA dementia seizure disorder Plan: -Continue oral Vanco d# ,Dificid d# , and empiric Meropenem # 2 pending ID GNRs 11/18 SP Tygacil #8 11/15 SP Flagyl d# 20 10/30 SP Meropenem d# 5 - 10/29 SP IV Vanco # 10 - 10/26 SP Zosyn #6 - 10/21 SP Ceftriaxone 2 g qd d# 11 - 10/17 SP empiric Tamiflu #6/5 -2 SP IV Vancomcyin #5, Meropenm #3 -10/13 SP Cefepime #3 -u/a, ESR, CRP -Monitor CBC/BMP, temperatures; -aspiration precautions - vent Support - repeat Cx ( Bl, Ur, Sp ) - may need removal of subclavian Ctr line ( since Oct 26 ) - C-CT eval of lungs ro empyema / lung collapse Subjective Allergies: Uncoded Allergies: TAPE (Adverse Reaction, Mild, 11/09/17) REDNESS AT TAPE SITE WHEN APPLIED TAPE Subjective s/p asystole arrest yesterday after became bradycardic after metroprol- 3 rounds of epi with ROSC started on pressors levo going down no fever wbc in the high 20s, improved from yesterday sp cx and ucx growing GNRs. Objective Vital Signs Last 24 Hour Vital Signs Date Time Temp Pulse Resp B/P (MAP) Pulse Ox O2 Delivery O2 Flow Rate FiO2 11/19/17 09:10 116 30 100 11/19/17 08:16 111 23 99 Mechanical Ventilator 100 11/19/17 08:06 109 31 94 Mechanical Ventilator 100 11/19/17 08:00 92 11/19/17 08:00 98.4 110 31 96/80 95 Mechanical Ventilator 100 98.4 11/19/17 08:00 100 11/19/17 07:30 108 34 92/65 96 Mechanical Ventilator 100 11/19/17 07:00 111 30 112/69 98 Mechanical Ventilator 100 11/19/17 06:58 111 30 100 11/19/17 06:00 112 109/68 11/19/17 06:00 120/56 11/19/17 06:00 110 25 119/72 100 Mechanical Ventilator 100 11/19/17 05:30 109 25 119/72 100 Mechanical Ventilator 100 11/19/17 05:24 117 31 100 11/19/17 05:00 113/70 11/19/17 05:00 107 25 113/70 99 Mechanical Ventilator 100 11/19/17 04:30 113 25 110/65 96 Mechanical Ventilator 100 11/19/17 04:00 99.0 113 32 117/69 97 Mechanical Ventilator 100 99.0 11/19/17 04:00 117/69 11/19/17 04:00 100 11/19/17 04:00 112 11/19/17 03:30 117 34 112/66 95 Mechanical Ventilator 100 11/19/17 03:01 125 36 100 11/19/17 03:00 Mechanical Ventilator 100 11/19/17 03:00 125 27 130/99 96 Mechanical Ventilator 100 11/19/17 03:00 130/99 11/19/17 03:00 Mechanical Ventilator 100 11/19/17 02:30 127 28 139/74 97 Mechanical Ventilator 100 11/19/17 02:00 123/90 11/19/17 02:00 127 30 123/90 98 Mechanical Ventilator 100 11/19/17 01:30 127 31 135/97 98 Mechanical Ventilator 100 11/19/17 01:14 104 36 100 11/19/17 01:02 110/60 11/19/17 01:00 124 27 135/97 100 Mechanical Ventilator 100 11/19/17 01:00 135/97 11/19/17 00:30 123 28 124/69 97 Mechanical Ventilator 100 11/19/17 00:00 100 11/19/17 00:00 110 11/19/17 00:00 99.3 123 29 90/78 97 Mechanical Ventilator 100 99.3 11/19/17 00:00 90/78 11/18/17 23:13 120 23 97 Mechanical Ventilator 100 11/18/17 23:12 102 32 100 11/18/17 23:04 122 21 97 Mechanical Ventilator 100 11/18/17 23:00 118 32 122/75 99 Mechanical Ventilator 100 11/18/17 23:00 116/77 11/18/17 22:53 112 11/18/17 22:30 114 34 101/67 94 Mechanical Ventilator 100 11/18/17 22:00 113 32 109/44 93 Mechanical Ventilator 100 11/18/17 22:00 101/67 11/18/17 21:42 114 92/64 11/18/17 21:00 113/75 11/18/17 20:43 113 28 100 11/18/17 20:30 112 32 114/66 92 Mechanical Ventilator 100 11/18/17 20:00 109/66 11/18/17 20:00 100 11/18/17 20:00 103 11/18/17 20:00 112 34 101/66 94 Mechanical Ventilator 100 11/18/17 19:30 98.8 111 32 109/44 94 Mechanical Ventilator 100 98.8 11/18/17 19:14 109 24 98 Mechanical Ventilator 100 11/18/17 19:09 110 24 100 11/18/17 19:07 111 24 95 Mechanical Ventilator 100 11/18/17 19:00 109/44 11/18/17 19:00 110 32 109/44 94 Mechanical Ventilator 100 11/18/17 18:00 103 32 100/75 94 Mechanical Ventilator 100 11/18/17 18:00 95/52 11/18/17 17:30 105 31 106/67 94 Mechanical Ventilator 100 11/18/17 17:04 104 35 100 11/18/17 17:00 105 33 138/77 90 Mechanical Ventilator 100 11/18/17 17:00 128/78 11/18/17 16:00 100 11/18/17 16:00 134/81 11/18/17 16:00 104 33 136/86 90 Mechanical Ventilator 100 11/18/17 16:00 103 11/18/17 15:30 155/89 11/18/17 15:30 102 32 155/89 90 Mechanical Ventilator 100 11/18/17 15:24 104 36 100 11/18/17 15:23 102 36 91 Mechanical Ventilator 100 11/18/17 15:10 103 29 81 Mechanical Ventilator 100 11/18/17 15:00 105 31 146/88 91 Mechanical Ventilator 100 11/18/17 15:00 143/93 11/18/17 14:30 103 33 136/83 94 Mechanical Ventilator 100 11/18/17 14:00 102 36 116/89 94 Mechanical Ventilator 100 11/18/17 14:00 140/65 11/18/17 13:41 103 123/65 11/18/17 13:00 98.6 110 30 110/44 95 Mechanical Ventilator 100 98.6 11/18/17 13:00 114/71 11/18/17 12:40 103 37 100 11/18/17 12:00 100 11/18/17 12:00 103 37 122/77 95 Mechanical Ventilator 100 11/18/17 12:00 104 11/18/17 12:00 103 108/70 11/18/17 12:00 108/70 11/18/17 11:30 100 38 121/81 95 Mechanical Ventilator 100 11/18/17 11:10 98 29 91 Mechanical Ventilator 100 11/18/17 11:07 100 37 100 11/18/17 11:00 102 36 87 Mechanical Ventilator 100 11/18/17 11:00 100 30 142/82 95 Mechanical Ventilator 100 3/11/18 11:00 132/96 11/18/17 10:30 104 31 157/88 93 Mechanical Ventilator 100 11/18/17 10:30 147/90 Height (Feet): 5 Height (Inches): 6.00 Weight (Pounds): 215 Objective General Appearance: alert, moderate distress, Chronically Ill Head: normocephalic, atraumatic ENT: trach in place Neck: full range of motion, supple/symm/no masses Respiratory: chest non-tender, coarse breath asounds Cardiovascular no edema, tachycardia Gastrointestinal: normal bowel sounds, non tender, soft, non-distended, no guarding, no rebound Musculoskeletal: back normal, normal range of motion Skin: normal color, no rash, warm/dry, well hydrated Microbiology Date/Time Source Procedure Growth Status 11/17/17 16:06 Sputum Gram Stain - Final Resulted 11/17/17 16:06 Sputum Culture - Preliminary Gram Negative Fran Resulted 11/17/17 16:30 Urine,Clean Catch Urine Culture - Preliminary Gram Negative Bacillus 1 Resulted Laboratory Tests Test 11/19/17 04:00 11/19/17 04:45 Arterial Blood pH 7.430 (7.350-7.450) Arterial Blood Partial Pressure CO2 38.7 mmHg (35.0-45.0) Arterial Blood Partial Pressure O2 58.4 mmHg (75.0-100.0) L Arterial Blood HCO3 25.1 mmol/L (22.0-26.0) Arterial Blood Oxygen Saturation 88.7 % (92.0-98.0) L Arterial Blood Base Excess 0.8 Dipak Test Positive White Blood Count 28.1 K/UL (4.8-10.8) *H Red Blood Count 3.18 M/UL (4.70-6.10) L Hemoglobin 9.4 G/DL (14.2-18.0) L Hematocrit 28.9 % (42.0-52.0) L Mean Corpuscular Volume 91 FL (80-99) Mean Corpuscular Hemoglobin 29.5 PG (27.0-31.0) Mean Corpuscular Hemoglobin Concent 32.5 G/DL (32.0-36.0) Red Cell Distribution Width 14.8 % (11.6-14.8) Platelet Count 629 K/UL (150-450) H Mean Platelet Volume 6.1 FL (6.5-10.1) L Neutrophils (%) (Auto) % (45.0-75.0) Lymphocytes (%) (Auto) % (20.0-45.0) Monocytes (%) (Auto) % (1.0-10.0) Eosinophils (%) (Auto) % (0.0-3.0) Basophils (%) (Auto) % (0.0-2.0) Differential Total Cells Counted 100 Neutrophils % (Manual) 84 % (45-75) H Lymphocytes % (Manual) 8 % (20-45) L Monocytes % (Manual) 8 % (1-10) Eosinophils % (Manual) 0 % (0-3) Basophils % (Manual) 0 % (0-2) Band Neutrophils 0 % (0-8) Platelet Estimate Increased H Platelet Morphology Normal Hypochromasia 1+ Anisocytosis 1+ Sodium Level 147 MMOL/L (136-145) H Potassium Level 4.1 MMOL/L (3.5-5.1) Chloride Level 112 MMOL/L (98-107) H Carbon Dioxide Level 26 MMOL/L (21-32) Anion Gap 9 mmol/L (5-15) Blood Urea Nitrogen 68 mg/dL (7-18) H Creatinine 2.9 MG/DL (0.55-1.30) #H Estimat Glomerular Filtration Rate 26.9 mL/min (>60) Glucose Level 111 MG/DL (74-106) H Calcium Level 8.4 MG/DL (8.5-10.1) L Phosphorus Level 5.8 MG/DL (2.5-4.9) H Magnesium Level 1.9 MG/DL (1.8-2.4) Total Bilirubin 0.5 MG/DL (0.2-1.0) Aspartate Amino Transf (AST/SGOT) 27 U/L (15-37) Alanine Aminotransferase (ALT/SGPT) 14 U/L (12-78) Alkaline Phosphatase 150 U/L (46-116) H Pro-B-Type Natriuretic Peptide 3702 pg/mL (0-125) H Total Protein 5.8 G/DL (6.4-8.2) L Albumin 1.6 G/DL (3.4-5.0) L Globulin 4.2 g/dL Albumin/Globulin Ratio 0.4 (1.0-2.7) L Current Medications Medications (Trade) Dose Ordered Sig/Olvin Route PRN Reason Start Time Stop Time Status Last Admin Dose Admin Acetaminophen (Tylenol) 650 mg Q4H PRN RECTAL Mild Pain (Pain Scale 1-3) 11/18/17 09:00 11/20/17 20:59 Chlorhexidine Gluconate (Pamela-Hex 2%) 1 applic DAILY@2000 TOPIC 11/18/17 20:00 11/23/17 21:59 11/18/17 21:23 Fidaxomicin (Dificid) 200 mg EVERY 12 HOURS ORAL 11/18/17 09:00 11/24/17 21:01 11/19/17 09:24 Lactobacillus Acidophilus (Culturelle) 1 tab THREE TIMES A DAY GT 11/18/17 09:00 12/03/17 12:59 11/19/17 08:58 Levalbuterol HCl (Xopenex) 1.25 mg Q4HRT HHN 11/18/17 11:00 11/19/17 10:59 11/19/17 08:06 Levalbuterol HCl (Xopenex) 1.25 mg Q6H PRN HHN Shortness of Breath 11/18/17 08:00 11/22/17 07:59 Linezolid 300 ml @ 300 mls/hr Q12HR@0100,1300 IVPB 11/18/17 13:00 11/25/17 12:59 11/19/17 01:01 Meropenem 2 gm/ Sodium Chloride 110 ml @ 220 mls/hr Q12HR@0200,1400 IVPB 11/18/17 14:00 11/23/17 13:59 11/19/17 02:35 Metoprolol Tartrate (Lopressor) 50 mg Q8HR GT 11/18/17 14:00 12/13/17 20:59 Norepinephrine Bitartrate 8 mg/ Dextrose 254 ml @ 0 mls/hr Q24H IV 11/18/17 08:00 12/18/17 07:59 11/19/17 01:02 Ondansetron HCl (Zofran) 4 mg Q6H PRN IVP Nausea & Vomiting 11/18/17 09:00 11/29/17 20:59 Vancomycin HCl (Vancomycin) 125 mg FOUR TIMES A DAY GT 11/18/17 09:00 11/23/17 08:59 11/19/17 08:59 Alessia Akers M.D. Nov 19, 2017 10:05
[2017-11-19] MEDS ORDERED: DOPamine 400mg/250ml 250 ML IV SCH (11:00)
--- NOTE | 2017-11-19 11:44 | Diagnostic Imaging Report ---
Indication: Dyspnea Technique: One view of the chest Comparison: 11/18/2017 Findings: Interval marked improvement of left upper lung infiltrates versus edema. Disease throughout the right mid and lower lung and left lower lung persist, unchanged. Small bilateral pleural effusions persist. Heart size is normal. Right jugular central venous catheter, tracheostomy remain. Impression: Bilateral parenchymal disease, as described, improved in the left upper lobe, stable elsewhere, over one day Other findings as noted
--- NOTE | 2017-11-19 11:46 | Pulmonolgy Critical Care Note ---
Critical Care - Asmt/Plan Problems: (1) Acute respiratory failure (2) Collapse of right lung (3) Acute renal failure (ARF) (4) Pneumonia (5) Sepsis (6) Epileptic seizure, generalized (7) Feeding by G-tube (8) C. difficile colitis Respiratory: monitor respiratory rate, adjust FIO2, CXR Cardiac: continue to monitor HR/BP Renal: F/U I&O, keep IV fluid, check electrolytes Infectious Disease: check cultures Gastrointestinal: continue feedings/current rate Endocrine: monitor blood sugar, continue sliding scale insulin Hematologic: monitor H/H, transfuse if hgb<8.5 Neurologic: PRN Ativan, keep patient comfortable Affect: PRN ativan Disposition: keep in ICU Discussed with: nurses, consultants, registered nurse hh case managermanager gyn - Objective Last 24 Hour Vital Signs Date Time Temp Pulse Resp B/P (MAP) Pulse Ox O2 Delivery O2 Flow Rate FiO2 11/19/17 11:30 121/75 11/19/17 11:04 114 25 93 Mechanical Ventilator 100 11/19/17 11:00 112 30 142/69 95 Mechanical Ventilator 100 11/19/17 10:51 108 28 95 Mechanical Ventilator 100 11/19/17 10:46 112 30 100 11/19/17 10:00 119 27 146/68 95 Mechanical Ventilator 100 11/19/17 09:45 117 25 173/66 90 Mechanical Ventilator 100 11/19/17 09:30 114 31 150/68 96 Mechanical Ventilator 100 11/19/17 09:15 116 33 125/70 98 Mechanical Ventilator 100 11/19/17 09:10 116 30 100 11/19/17 09:00 119 31 165/65 92 Mechanical Ventilator 100 11/19/17 08:45 116 31 157/68 87 Mechanical Ventilator 100 11/19/17 08:30 84 30 168/73 86 Mechanical Ventilator 100 11/19/17 08:16 111 23 99 Mechanical Ventilator 100 11/19/17 08:15 109 34 121/77 100 Mechanical Ventilator 100 11/19/17 08:06 109 31 94 Mechanical Ventilator 100 11/19/17 08:00 92 11/19/17 08:00 121/77 11/19/17 08:00 98.4 110 31 96/80 95 Mechanical Ventilator 100 98.4 11/19/17 08:00 100 11/19/17 07:30 108 34 92/65 96 Mechanical Ventilator 100 11/19/17 07:00 111 30 112/69 98 Mechanical Ventilator 100 11/19/17 07:00 112/69 11/19/17 06:58 111 30 100 11/19/17 06:00 112 109/68 11/19/17 06:00 120/56 11/19/17 06:00 110 25 119/72 100 Mechanical Ventilator 100 11/19/17 05:30 109 25 119/72 100 Mechanical Ventilator 100 11/19/17 05:24 117 31 100 11/19/17 05:00 113/70 11/19/17 05:00 107 25 113/70 99 Mechanical Ventilator 100 11/19/17 04:30 113 25 110/65 96 Mechanical Ventilator 100 11/19/17 04:00 99.0 113 32 117/69 97 Mechanical Ventilator 100 99.0 11/19/17 04:00 117/69 11/19/17 04:00 100 11/19/17 04:00 112 11/19/17 03:30 117 34 112/66 95 Mechanical Ventilator 100 11/19/17 03:01 125 36 100 11/19/17 03:00 Mechanical Ventilator 100 11/19/17 03:00 125 27 130/99 96 Mechanical Ventilator 100 11/19/17 03:00 130/99 11/19/17 03:00 Mechanical Ventilator 100 11/19/17 02:30 127 28 139/74 97 Mechanical Ventilator 100 11/19/17 02:00 123/90 11/19/17 02:00 127 30 123/90 98 Mechanical Ventilator 100 11/19/17 01:30 127 31 135/97 98 Mechanical Ventilator 100 11/19/17 01:14 104 36 100 11/19/17 01:02 110/60 11/19/17 01:00 124 27 135/97 100 Mechanical Ventilator 100 11/19/17 01:00 135/97 11/19/17 00:30 123 28 124/69 97 Mechanical Ventilator 100 11/19/17 00:00 100 11/19/17 00:00 110 11/19/17 00:00 99.3 123 29 90/78 97 Mechanical Ventilator 100 99.3 11/19/17 00:00 90/78 11/18/17 23:13 120 23 97 Mechanical Ventilator 100 11/18/17 23:12 102 32 100 11/18/17 23:04 122 21 97 Mechanical Ventilator 100 11/18/17 23:00 118 32 122/75 99 Mechanical Ventilator 100 11/18/17 23:00 116/77 11/18/17 22:53 112 11/18/17 22:30 114 34 101/67 94 Mechanical Ventilator 100 11/18/17 22:00 113 32 109/44 93 Mechanical Ventilator 100 11/18/17 22:00 101/67 11/18/17 21:42 114 92/64 11/18/17 21:00 113/75 11/18/17 20:43 113 28 100 11/18/17 20:30 112 32 114/66 92 Mechanical Ventilator 100 11/18/17 20:00 109/66 11/18/17 20:00 100 11/18/17 20:00 103 11/18/17 20:00 112 34 101/66 94 Mechanical Ventilator 100 11/18/17 19:30 98.8 111 32 109/44 94 Mechanical Ventilator 100 98.8 11/18/17 19:14 109 24 98 Mechanical Ventilator 100 11/18/17 19:09 110 24 100 11/18/17 19:07 111 24 95 Mechanical Ventilator 100 11/18/17 19:00 109/44 11/18/17 19:00 110 32 109/44 94 Mechanical Ventilator 100 11/18/17 18:00 103 32 100/75 94 Mechanical Ventilator 100 11/18/17 18:00 95/52 11/18/17 17:30 105 31 106/67 94 Mechanical Ventilator 100 11/18/17 17:04 104 35 100 11/18/17 17:00 105 33 138/77 90 Mechanical Ventilator 100 11/18/17 17:00 128/78 11/18/17 16:00 100 11/18/17 16:00 134/81 11/18/17 16:00 104 33 136/86 90 Mechanical Ventilator 100 11/18/17 16:00 103 11/18/17 15:30 155/89 11/18/17 15:30 102 32 155/89 90 Mechanical Ventilator 100 11/18/17 15:24 104 36 100 11/18/17 15:23 102 36 91 Mechanical Ventilator 100 11/18/17 15:10 103 29 81 Mechanical Ventilator 100 11/18/17 15:00 105 31 146/88 91 Mechanical Ventilator 100 11/18/17 15:00 143/93 11/18/17 14:30 103 33 136/83 94 Mechanical Ventilator 100 11/18/17 14:00 102 36 116/89 94 Mechanical Ventilator 100 11/18/17 14:00 140/65 11/18/17 13:41 103 123/65 11/18/17 13:00 98.6 110 30 110/44 95 Mechanical Ventilator 100 98.6 11/18/17 13:00 114/71 11/18/17 12:40 103 37 100 11/18/17 12:00 100 11/18/17 12:00 103 37 122/77 95 Mechanical Ventilator 100 11/18/17 12:00 104 11/18/17 12:00 103 108/70 11/18/17 12:00 108/70 Status: awake Condition: critical HEENT: atraumatic Neck: full ROM Heart: HR/BP stable, regular Abdomen: soft, non-tender Extremities: no C/C/E, edema Decubiti: location Micro: Microbiology Date/Time Source Procedure Growth Status 11/17/17 16:06 Sputum Gram Stain - Final Resulted 11/17/17 16:06 Sputum Culture - Preliminary Gram Negative Fran Resulted 11/17/17 16:30 Urine,Clean Catch Urine Culture - Preliminary Gram Negative Bacillus 1 Resulted Critical Care - Subjective ROS Limited/Unobtainable: No Intubation Day: trach Condition: critical EKG Rhythm: Sinus Rhythm FI02: 100 Vent Support Breath Rate: 18 Vent Support Mode: AC Vent Tidal Volume: 700 Sputum Amount: Small PEEP: 10.0 PIP: 34 Secretions: large, thick Drips: on Dopamin drip Tube Feeding Amount: 50 I&O: Intake and Output 11/18/17 11/19/17 19:00 07:00 Intake Total 616.17 ml 455.72 ml Output Total 220 ml 20 ml Balance 396.17 ml 435.72 ml IV Total 566.17 ml 455.72 ml Other 50 ml Output Urine Total 220 ml 20 ml CXR: bilateral infitlrate ET-Tube: 8.0 ET Position: 24 Labs: Laboratory Tests Test 11/19/17 04:00 11/19/17 04:45 Arterial Blood pH 7.430 (7.350-7.450) Arterial Blood Partial Pressure CO2 38.7 mmHg (35.0-45.0) Arterial Blood Partial Pressure O2 58.4 mmHg (75.0-100.0) L Arterial Blood HCO3 25.1 mmol/L (22.0-26.0) Arterial Blood Oxygen Saturation 88.7 % (92.0-98.0) L Arterial Blood Base Excess 0.8 Dipak Test Positive White Blood Count 28.1 K/UL (4.8-10.8) *H Red Blood Count 3.18 M/UL (4.70-6.10) L Hemoglobin 9.4 G/DL (14.2-18.0) L Hematocrit 28.9 % (42.0-52.0) L Mean Corpuscular Volume 91 FL (80-99) Mean Corpuscular Hemoglobin 29.5 PG (27.0-31.0) Mean Corpuscular Hemoglobin Concent 32.5 G/DL (32.0-36.0) Red Cell Distribution Width 14.8 % (11.6-14.8) Platelet Count 629 K/UL (150-450) H Mean Platelet Volume 6.1 FL (6.5-10.1) L Neutrophils (%) (Auto) % (45.0-75.0) Lymphocytes (%) (Auto) % (20.0-45.0) Monocytes (%) (Auto) % (1.0-10.0) Eosinophils (%) (Auto) % (0.0-3.0) Basophils (%) (Auto) % (0.0-2.0) Differential Total Cells Counted 100 Neutrophils % (Manual) 84 % (45-75) H Lymphocytes % (Manual) 8 % (20-45) L Monocytes % (Manual) 8 % (1-10) Eosinophils % (Manual) 0 % (0-3) Basophils % (Manual) 0 % (0-2) Band Neutrophils 0 % (0-8) Platelet Estimate Increased H Platelet Morphology Normal Hypochromasia 1+ Anisocytosis 1+ Sodium Level 147 MMOL/L (136-145) H Potassium Level 4.1 MMOL/L (3.5-5.1) Chloride Level 112 MMOL/L (98-107) H Carbon Dioxide Level 26 MMOL/L (21-32) Anion Gap 9 mmol/L (5-15) Blood Urea Nitrogen 68 mg/dL (7-18) H Creatinine 2.9 MG/DL (0.55-1.30) #H Estimat Glomerular Filtration Rate 26.9 mL/min (>60) Glucose Level 111 MG/DL (74-106) H Calcium Level 8.4 MG/DL (8.5-10.1) L Phosphorus Level 5.8 MG/DL (2.5-4.9) H Magnesium Level 1.9 MG/DL (1.8-2.4) Total Bilirubin 0.5 MG/DL (0.2-1.0) Aspartate Amino Transf (AST/SGOT) 27 U/L (15-37) Alanine Aminotransferase (ALT/SGPT) 14 U/L (12-78) Alkaline Phosphatase 150 U/L (46-116) H Pro-B-Type Natriuretic Peptide 3702 pg/mL (0-125) H Total Protein 5.8 G/DL (6.4-8.2) L Albumin 1.6 G/DL (3.4-5.0) L Globulin 4.2 g/dL Albumin/Globulin Ratio 0.4 (1.0-2.7) L EDDIE COLES Nov 19, 2017 11:46
--- NOTE | 2017-11-19 12:33 | GI Progress Note ---
Assessment/Plan Problems: (1) Dysphagia ICD Codes: R13.10 - Dysphagia, unspecified SNOMED: 43844924, 731047970 (2) Dementia ICD Codes: F03.90 - Unspecified dementia without behavioral disturbance SNOMED: 13555973 (3) PEG (percutaneous endoscopic gastrostomy) adjustment/replacement/removal ICD Codes: Z43.1 - Encounter for attention to gastrostomy SNOMED: 955910035, 869154218 (4) CVA, old, hemiparesis ICD Codes: I69.359 - Hemiplegia and hemiparesis following cerebral infarction affecting unspecified side SNOMED: 37838219, 99714398, 8202414748301 Status: stable Status Narrative Discussed with Dr. Campos. Assessment/Plan s/p EGD and hemostasis cdiff positive gastric lavage performed by RN with no evidence of gastric bleed coded, now in ICU monitor H&H, prn transfusion hold GTFs GT site care BID/prn abx poor prognosis fu labs Subjective Subjective limited Objective Last 24 Hour Vital Signs Date Time Temp Pulse Resp B/P (MAP) Pulse Ox O2 Delivery O2 Flow Rate FiO2 11/19/17 12:00 100 11/19/17 12:00 98.2 124 30 113/65 95 Mechanical Ventilator 100 98.2 11/19/17 11:30 121/75 11/19/17 11:04 114 25 93 Mechanical Ventilator 100 11/19/17 11:00 118/63 11/19/17 11:00 112 30 142/69 95 Mechanical Ventilator 100 11/19/17 10:51 108 28 95 Mechanical Ventilator 100 11/19/17 10:46 112 30 100 11/19/17 10:00 125/57 11/19/17 10:00 119 27 146/68 95 Mechanical Ventilator 100 11/19/17 09:45 117 25 173/66 90 Mechanical Ventilator 100 11/19/17 09:30 114 31 150/68 96 Mechanical Ventilator 100 11/19/17 09:15 116 33 125/70 98 Mechanical Ventilator 100 11/19/17 09:10 116 30 100 11/19/17 09:00 135/61 11/19/17 09:00 119 31 165/65 92 Mechanical Ventilator 100 11/19/17 08:45 116 31 157/68 87 Mechanical Ventilator 100 11/19/17 08:30 84 30 168/73 86 Mechanical Ventilator 100 11/19/17 08:16 111 23 99 Mechanical Ventilator 100 11/19/17 08:15 109 34 121/77 100 Mechanical Ventilator 100 11/19/17 08:06 109 31 94 Mechanical Ventilator 100 11/19/17 08:00 92 11/19/17 08:00 121/77 11/19/17 08:00 98.4 110 31 96/80 95 Mechanical Ventilator 100 98.4 11/19/17 08:00 100 11/19/17 07:30 108 34 92/65 96 Mechanical Ventilator 100 11/19/17 07:00 111 30 112/69 98 Mechanical Ventilator 100 11/19/17 07:00 112/69 11/19/17 06:58 111 30 100 11/19/17 06:00 112 109/68 11/19/17 06:00 120/56 11/19/17 06:00 110 25 119/72 100 Mechanical Ventilator 100 11/19/17 05:30 109 25 119/72 100 Mechanical Ventilator 100 11/19/17 05:24 117 31 100 11/19/17 05:00 113/70 11/19/17 05:00 107 25 113/70 99 Mechanical Ventilator 100 11/19/17 04:30 113 25 110/65 96 Mechanical Ventilator 100 11/19/17 04:00 99.0 113 32 117/69 97 Mechanical Ventilator 100 99.0 11/19/17 04:00 117/69 11/19/17 04:00 100 11/19/17 04:00 112 11/19/17 03:30 117 34 112/66 95 Mechanical Ventilator 100 11/19/17 03:01 125 36 100 11/19/17 03:00 Mechanical Ventilator 100 11/19/17 03:00 125 27 130/99 96 Mechanical Ventilator 100 11/19/17 03:00 130/99 11/19/17 03:00 Mechanical Ventilator 100 11/19/17 02:30 127 28 139/74 97 Mechanical Ventilator 100 11/19/17 02:00 123/90 11/19/17 02:00 127 30 123/90 98 Mechanical Ventilator 100 11/19/17 01:30 127 31 135/97 98 Mechanical Ventilator 100 11/19/17 01:14 104 36 100 11/19/17 01:02 110/60 11/19/17 01:00 124 27 135/97 100 Mechanical Ventilator 100 11/19/17 01:00 135/97 11/19/17 00:30 123 28 124/69 97 Mechanical Ventilator 100 11/19/17 00:00 100 11/19/17 00:00 110 11/19/17 00:00 99.3 123 29 90/78 97 Mechanical Ventilator 100 99.3 11/19/17 00:00 90/78 11/18/17 23:13 120 23 97 Mechanical Ventilator 100 11/18/17 23:12 102 32 100 11/18/17 23:04 122 21 97 Mechanical Ventilator 100 11/18/17 23:00 118 32 122/75 99 Mechanical Ventilator 100 11/18/17 23:00 116/77 11/18/17 22:53 112 11/18/17 22:30 114 34 101/67 94 Mechanical Ventilator 100 11/18/17 22:00 113 32 109/44 93 Mechanical Ventilator 100 11/18/17 22:00 101/67 11/18/17 21:42 114 92/64 11/18/17 21:00 113/75 11/18/17 20:43 113 28 100 11/18/17 20:30 112 32 114/66 92 Mechanical Ventilator 100 11/18/17 20:00 109/66 11/18/17 20:00 100 11/18/17 20:00 103 11/18/17 20:00 112 34 101/66 94 Mechanical Ventilator 100 11/18/17 19:30 98.8 111 32 109/44 94 Mechanical Ventilator 100 98.8 11/18/17 19:14 109 24 98 Mechanical Ventilator 100 11/18/17 19:09 110 24 100 11/18/17 19:07 111 24 95 Mechanical Ventilator 100 11/18/17 19:00 109/44 11/18/17 19:00 110 32 109/44 94 Mechanical Ventilator 100 11/18/17 18:00 103 32 100/75 94 Mechanical Ventilator 100 11/18/17 18:00 95/52 11/18/17 17:30 105 31 106/67 94 Mechanical Ventilator 100 11/18/17 17:04 104 35 100 11/18/17 17:00 105 33 138/77 90 Mechanical Ventilator 100 11/18/17 17:00 128/78 11/18/17 16:00 100 11/18/17 16:00 134/81 11/18/17 16:00 104 33 136/86 90 Mechanical Ventilator 100 11/18/17 16:00 103 11/18/17 15:30 155/89 11/18/17 15:30 102 32 155/89 90 Mechanical Ventilator 100 11/18/17 15:24 104 36 100 11/18/17 15:23 102 36 91 Mechanical Ventilator 100 11/18/17 15:10 103 29 81 Mechanical Ventilator 100 11/18/17 15:00 105 31 146/88 91 Mechanical Ventilator 100 11/18/17 15:00 143/93 11/18/17 14:30 103 33 136/83 94 Mechanical Ventilator 100 11/18/17 14:00 102 36 116/89 94 Mechanical Ventilator 100 11/18/17 14:00 140/65 11/18/17 13:41 103 123/65 11/18/17 13:00 98.6 110 30 110/44 95 Mechanical Ventilator 100 98.6 11/18/17 13:00 114/71 11/18/17 12:40 103 37 100 Intake and Output 11/18/17 11/19/17 19:00 07:00 Intake Total 616.17 ml 455.72 ml Output Total 220 ml 20 ml Balance 396.17 ml 435.72 ml IV Total 566.17 ml 455.72 ml Other 50 ml Output Urine Total 220 ml 20 ml Laboratory Tests Test 11/19/17 04:00 11/19/17 04:45 Arterial Blood pH 7.430 (7.350-7.450) Arterial Blood Partial Pressure CO2 38.7 mmHg (35.0-45.0) Arterial Blood Partial Pressure O2 58.4 mmHg (75.0-100.0) L Arterial Blood HCO3 25.1 mmol/L (22.0-26.0) Arterial Blood Oxygen Saturation 88.7 % (92.0-98.0) L Arterial Blood Base Excess 0.8 Dipak Test Positive White Blood Count 28.1 K/UL (4.8-10.8) *H Red Blood Count 3.18 M/UL (4.70-6.10) L Hemoglobin 9.4 G/DL (14.2-18.0) L Hematocrit 28.9 % (42.0-52.0) L Mean Corpuscular Volume 91 FL (80-99) Mean Corpuscular Hemoglobin 29.5 PG (27.0-31.0) Mean Corpuscular Hemoglobin Concent 32.5 G/DL (32.0-36.0) Red Cell Distribution Width 14.8 % (11.6-14.8) Platelet Count 629 K/UL (150-450) H Mean Platelet Volume 6.1 FL (6.5-10.1) L Neutrophils (%) (Auto) % (45.0-75.0) Lymphocytes (%) (Auto) % (20.0-45.0) Monocytes (%) (Auto) % (1.0-10.0) Eosinophils (%) (Auto) % (0.0-3.0) Basophils (%) (Auto) % (0.0-2.0) Differential Total Cells Counted 100 Neutrophils % (Manual) 84 % (45-75) H Lymphocytes % (Manual) 8 % (20-45) L Monocytes % (Manual) 8 % (1-10) Eosinophils % (Manual) 0 % (0-3) Basophils % (Manual) 0 % (0-2) Band Neutrophils 0 % (0-8) Platelet Estimate Increased H Platelet Morphology Normal Hypochromasia 1+ Anisocytosis 1+ Sodium Level 147 MMOL/L (136-145) H Potassium Level 4.1 MMOL/L (3.5-5.1) Chloride Level 112 MMOL/L (98-107) H Carbon Dioxide Level 26 MMOL/L (21-32) Anion Gap 9 mmol/L (5-15) Blood Urea Nitrogen 68 mg/dL (7-18) H Creatinine 2.9 MG/DL (0.55-1.30) #H Estimat Glomerular Filtration Rate 26.9 mL/min (>60) Glucose Level 111 MG/DL (74-106) H Calcium Level 8.4 MG/DL (8.5-10.1) L Phosphorus Level 5.8 MG/DL (2.5-4.9) H Magnesium Level 1.9 MG/DL (1.8-2.4) Total Bilirubin 0.5 MG/DL (0.2-1.0) Aspartate Amino Transf (AST/SGOT) 27 U/L (15-37) Alanine Aminotransferase (ALT/SGPT) 14 U/L (12-78) Alkaline Phosphatase 150 U/L (46-116) H Pro-B-Type Natriuretic Peptide 3702 pg/mL (0-125) H Total Protein 5.8 G/DL (6.4-8.2) L Albumin 1.6 G/DL (3.4-5.0) L Globulin 4.2 g/dL Albumin/Globulin Ratio 0.4 (1.0-2.7) L Height (Feet): 5 Height (Inches): 6.00 Weight (Pounds): 215 General Appearance: mild distress Cardiovascular: normal rate Respiratory/Chest: other - mech vent Abdominal Exam: GT site - dressing changed Laura Lucas N.P. Nov 19, 2017 12:33
[2017-11-19] MEDS ORDERED: Levalbuterol Inh UD 1.25mg/0.5ml HHN SCH (13:00)
--- NOTE | 2017-11-19 17:00 | Nephrology Progress Note ---
Assessment/Plan Problem List: (1) Acute renal failure (ARF) Assessment: resolving (2) Respiratory failure (3) Shock liver Assessment Cr rising post CODE JULIA , due to Shock , Hemorrhagic / Septic / C dif colitis worsenning anemia Off Pressors- Shock liver resolving High Troponin: DC Bradycardic - Vfib cardiac arrest 10/26 likely 2ry to hemorrhagic shock (drop Hgb 10.8 to 5) - GIB- Fever, ongoing Leukocytosis, worsening after code E.coli UTI w/ bacteremia Acute hypoxic resp failure- s/p Trach . Plan Plan: dialyse 11/10 next ? ? dialysis Cath DCed 11/16 watch renal parameters still full code may need dialysis again change feeding to Nepro Per ID has new cath right chest will plan to removed K IV as needed right groin cath removed being transfused add Renvela and Lactobacillus BP stablized start GT feeding HD trial as needed- on C dif treatment protocol monitor urine out put and Renal parameters discussed with RN Subjective ROS Limited/Unobtainable: Yes Objective Objective Last 24 Hour Vital Signs Date Time Temp Pulse Resp B/P (MAP) Pulse Ox O2 Delivery O2 Flow Rate FiO2 11/19/17 16:57 101 30 100 11/19/17 16:20 100 11/19/17 16:00 108 11/19/17 16:00 121/74 11/19/17 16:00 105 32 121/74 100 Mechanical Ventilator 98 11/19/17 15:30 108 32 114/49 98 Mechanical Ventilator 98 11/19/17 15:03 117 24 96 Mechanical Ventilator 100 11/19/17 15:00 114/49 11/19/17 15:00 118 32 123/63 100 Mechanical Ventilator 98 11/19/17 14:53 115 32 96 Mechanical Ventilator 100 11/19/17 14:52 117 34 100 11/19/17 14:30 116 30 110/77 98 Mechanical Ventilator 98 11/19/17 14:00 123 31 93/65 97 Mechanical Ventilator 98 11/19/17 14:00 89/71 11/19/17 13:31 130 127/72 11/19/17 13:30 122 34 126/67 99 Mechanical Ventilator 98 11/19/17 13:00 124 33 119/66 99 Mechanical Ventilator 100 11/19/17 13:00 119/66 11/19/17 12:51 123 29 100 3/12/18 12:00 135 11/19/17 12:00 117/77 11/19/17 12:00 100 11/19/17 12:00 98.2 124 30 113/65 95 Mechanical Ventilator 100 98.2 11/19/17 11:30 121/75 11/19/17 11:04 114 25 93 Mechanical Ventilator 100 11/19/17 11:00 118/63 11/19/17 11:00 112 30 142/69 95 Mechanical Ventilator 100 11/19/17 10:51 108 28 95 Mechanical Ventilator 100 11/19/17 10:46 112 30 100 11/19/17 10:00 125/57 11/19/17 10:00 119 27 146/68 95 Mechanical Ventilator 100 11/19/17 09:45 117 25 173/66 90 Mechanical Ventilator 100 11/19/17 09:30 114 31 150/68 96 Mechanical Ventilator 100 11/19/17 09:15 116 33 125/70 98 Mechanical Ventilator 100 11/19/17 09:10 116 30 100 11/19/17 09:00 135/61 11/19/17 09:00 119 31 165/65 92 Mechanical Ventilator 100 11/19/17 08:45 116 31 157/68 87 Mechanical Ventilator 100 11/19/17 08:30 84 30 168/73 86 Mechanical Ventilator 100 11/19/17 08:16 111 23 99 Mechanical Ventilator 100 11/19/17 08:15 109 34 121/77 100 Mechanical Ventilator 100 11/19/17 08:06 109 31 94 Mechanical Ventilator 100 11/19/17 08:00 92 11/19/17 08:00 121/77 11/19/17 08:00 98.4 110 31 96/80 95 Mechanical Ventilator 100 98.4 11/19/17 08:00 100 11/19/17 07:30 108 34 92/65 96 Mechanical Ventilator 100 11/19/17 07:00 111 30 112/69 98 Mechanical Ventilator 100 11/19/17 07:00 112/69 11/19/17 06:58 111 30 100 11/19/17 06:00 112 109/68 11/19/17 06:00 120/56 11/19/17 06:00 110 25 119/72 100 Mechanical Ventilator 100 11/19/17 05:30 109 25 119/72 100 Mechanical Ventilator 100 11/19/17 05:24 117 31 100 11/19/17 05:00 113/70 11/19/17 05:00 107 25 113/70 99 Mechanical Ventilator 100 11/19/17 04:30 113 25 110/65 96 Mechanical Ventilator 100 11/19/17 04:00 99.0 113 32 117/69 97 Mechanical Ventilator 100 99.0 11/19/17 04:00 117/69 11/19/17 04:00 100 11/19/17 04:00 112 11/19/17 03:30 117 34 112/66 95 Mechanical Ventilator 100 11/19/17 03:01 125 36 100 11/19/17 03:00 Mechanical Ventilator 100 11/19/17 03:00 125 27 130/99 96 Mechanical Ventilator 100 11/19/17 03:00 130/99 11/19/17 03:00 Mechanical Ventilator 100 11/19/17 02:30 127 28 139/74 97 Mechanical Ventilator 100 11/19/17 02:00 123/90 11/19/17 02:00 127 30 123/90 98 Mechanical Ventilator 100 11/19/17 01:30 127 31 135/97 98 Mechanical Ventilator 100 11/19/17 01:14 104 36 100 11/19/17 01:02 110/60 11/19/17 01:00 124 27 135/97 100 Mechanical Ventilator 100 11/19/17 01:00 135/97 11/19/17 00:30 123 28 124/69 97 Mechanical Ventilator 100 11/19/17 00:00 100 11/19/17 00:00 110 11/19/17 00:00 99.3 123 29 90/78 97 Mechanical Ventilator 100 99.3 11/19/17 00:00 90/78 11/18/17 23:13 120 23 97 Mechanical Ventilator 100 11/18/17 23:12 102 32 100 11/18/17 23:04 122 21 97 Mechanical Ventilator 100 11/18/17 23:00 118 32 122/75 99 Mechanical Ventilator 100 11/18/17 23:00 116/77 11/18/17 22:53 112 11/18/17 22:30 114 34 101/67 94 Mechanical Ventilator 100 11/18/17 22:00 113 32 109/44 93 Mechanical Ventilator 100 11/18/17 22:00 101/67 11/18/17 21:42 114 92/64 11/18/17 21:00 113/75 11/18/17 20:43 113 28 100 11/18/17 20:30 112 32 114/66 92 Mechanical Ventilator 100 11/18/17 20:00 109/66 11/18/17 20:00 100 11/18/17 20:00 103 11/18/17 20:00 112 34 101/66 94 Mechanical Ventilator 100 11/18/17 19:30 98.8 111 32 109/44 94 Mechanical Ventilator 100 98.8 11/18/17 19:14 109 24 98 Mechanical Ventilator 100 11/18/17 19:09 110 24 100 11/18/17 19:07 111 24 95 Mechanical Ventilator 100 11/18/17 19:00 109/44 11/18/17 19:00 110 32 109/44 94 Mechanical Ventilator 100 11/18/17 18:00 103 32 100/75 94 Mechanical Ventilator 100 11/18/17 18:00 95/52 11/18/17 17:30 105 31 106/67 94 Mechanical Ventilator 100 11/18/17 17:04 104 35 100 11/18/17 17:00 105 33 138/77 90 Mechanical Ventilator 100 11/18/17 17:00 128/78 Intake and Output 11/18/17 11/19/17 19:00 07:00 Intake Total 616.17 ml 455.72 ml Output Total 220 ml 20 ml Balance 396.17 ml 435.72 ml IV Total 566.17 ml 455.72 ml Other 50 ml Output Urine Total 220 ml 20 ml Laboratory Tests 11/19/17 04:00: Arterial Blood pH 7.430, Arterial Blood Partial Pressure CO2 38.7, Arterial Blood Partial Pressure O2 58.4L, Arterial Blood HCO3 25.1, Arterial Blood Oxygen Saturation 88.7L, Arterial Blood Base Excess 0.8, Dipak Test Positive 11/19/17 04:45: White Blood Count 28.1*H, Red Blood Count 3.18L, Hemoglobin 9.4L, Hematocrit 28.9L, Mean Corpuscular Volume 91, Mean Corpuscular Hemoglobin 29.5, Mean Corpuscular Hemoglobin Concent 32.5, Red Cell Distribution Width 14.8, Platelet Count 629H, Mean Platelet Volume 6.1L, Neutrophils (%) (Auto) , Lymphocytes (%) (Auto) , Monocytes (%) (Auto) , Eosinophils (%) (Auto) , Basophils (%) (Auto) , Differential Total Cells Counted 100, Neutrophils % (Manual) 84H, Lymphocytes % (Manual) 8L, Monocytes % (Manual) 8, Eosinophils % (Manual) 0, Basophils % ( Manual) 0, Band Neutrophils 0, Platelet Estimate IncreasedH, Platelet Morphology Normal, Hypochromasia 1+, Anisocytosis 1+, Sodium Level 147H, Potassium Level 4.1, Chloride Level 112H, Carbon Dioxide Level 26, Anion Gap 9, Blood Urea Nitrogen 68H, Creatinine 2.9#H, Estimat Glomerular Filtration Rate 26.9, Glucose Level 111H, Calcium Level 8.4L, Phosphorus Level 5.8H, Magnesium Level 1.9, Total Bilirubin 0.5, Aspartate Amino Transf (AST/SGOT) 27, Alanine Aminotransferase (ALT/SGPT) 14, Alkaline Phosphatase 150H, Pro-B-Type Natriuretic Peptide 3702H, Total Protein 5.8L, Albumin 1.6L, Globulin 4.2, Albumin/Globulin Ratio 0.4L Height (Feet): 5 Height (Inches): 6.00 Weight (Pounds): 215 General Appearance: mild distress Cardiovascular: tachycardia Respiratory/Chest: decreased breath sounds Abdomen: distended Objective no other change YVES SINHA Nov 19, 2017 17:00
[2017-11-19 17:53] LABS: APPEARANCE,URINE SLIGHTLY CLOUDY; BILIRUBIN, URINE NEGATIVE (NEGATIVE); GLUCOSE, URINE (UA) NEGATIVE (NEGATIVE); KETONES,URINE 2+ (NEGATIVE); LEUKOCYTE ESTERASE ,URINE 3+ (NEGATIVE); NITRITE,URINE NEGATIVE (NEGATIVE); PH,URINE 5 (4.5-8.0); PROTEIN,URINE 2+ (NEGATIVE); UROBILINOGEN,URINE NORMAL MG/DL (0.0-1.0)
[2017-11-19 17:55] LABS: COLOR,URINE PALE YELLOW
--- NOTE | 2017-11-19 18:41 | Cardiology Progress Note ---
Assessment/Plan Assessment/Plan 1. Cardiopulmonary arrest on three separate occasions. 2. Massive gastrointestinal bleed. 3. Encephalopathy. 4. Abnormal liver function tests, likely shock liver. 5. Acute renal failure. 6. Anemia. 7. NSTEMI type2 related to cardiopulmonary resuscitation and renal insufficiency. 8. Chronic respiratory failure. 9. History of cerebrovascular accident. 10. c diff 11. htn onthe vent dialysis per dr wang tele sinus still no further arrest bp is now high agian remain on high lisa oxygen remain tachypneic i off cardizem renaldose da cxr noted left clearer now3 on max dose of oxygen witha peep of 10 will repeat echo bubble study Subjective ROS Limited/Unobtainable: Yes Subjective on the vent, in icu Objective Last 24 Hour Vital Signs Date Time Temp Pulse Resp B/P (MAP) Pulse Ox O2 Delivery O2 Flow Rate FiO2 11/19/17 18:00 98.4 101 34 130/65 100 Mechanical Ventilator 100 98.4 11/19/17 17:00 100 32 131/64 99 Mechanical Ventilator 100 11/19/17 16:57 101 30 100 11/19/17 16:20 100 11/19/17 16:00 108 11/19/17 16:00 121/74 11/19/17 16:00 105 32 121/74 100 Mechanical Ventilator 98 11/19/17 15:30 108 32 114/49 98 Mechanical Ventilator 98 11/19/17 15:03 117 24 96 Mechanical Ventilator 100 11/19/17 15:00 114/49 11/19/17 15:00 118 32 123/63 100 Mechanical Ventilator 98 11/19/17 14:53 115 32 96 Mechanical Ventilator 100 11/19/17 14:52 117 34 100 11/19/17 14:30 116 30 110/77 98 Mechanical Ventilator 98 11/19/17 14:00 123 31 93/65 97 Mechanical Ventilator 98 11/19/17 14:00 89/71 11/19/17 13:31 130 127/72 11/19/17 13:30 122 34 126/67 99 Mechanical Ventilator 98 11/19/17 13:00 124 33 119/66 99 Mechanical Ventilator 100 11/19/17 13:00 119/66 11/19/17 12:51 123 29 100 11/19/17 12:00 135 11/19/17 12:00 117/77 11/19/17 12:00 100 11/19/17 12:00 98.2 124 30 113/65 95 Mechanical Ventilator 100 98.2 11/19/17 11:30 121/75 11/19/17 11:04 114 25 93 Mechanical Ventilator 100 11/19/17 11:00 118/63 11/19/17 11:00 112 30 142/69 95 Mechanical Ventilator 100 11/19/17 10:51 108 28 95 Mechanical Ventilator 100 11/19/17 10:46 112 30 100 11/19/17 10:00 125/57 11/19/17 10:00 119 27 146/68 95 Mechanical Ventilator 100 11/19/17 09:45 117 25 173/66 90 Mechanical Ventilator 100 11/19/17 09:30 114 31 150/68 96 Mechanical Ventilator 100 11/19/17 09:15 116 33 125/70 98 Mechanical Ventilator 100 11/19/17 09:10 116 30 100 11/19/17 09:00 135/61 11/19/17 09:00 119 31 165/65 92 Mechanical Ventilator 100 11/19/17 08:45 116 31 157/68 87 Mechanical Ventilator 100 11/19/17 08:30 84 30 168/73 86 Mechanical Ventilator 100 11/19/17 08:16 111 23 99 Mechanical Ventilator 100 11/19/17 08:15 109 34 121/77 100 Mechanical Ventilator 100 11/19/17 08:06 109 31 94 Mechanical Ventilator 100 11/19/17 08:00 92 11/19/17 08:00 121/77 11/19/17 08:00 98.4 110 31 96/80 95 Mechanical Ventilator 100 98.4 11/19/17 08:00 100 11/19/17 07:30 108 34 92/65 96 Mechanical Ventilator 100 11/19/17 07:00 111 30 112/69 98 Mechanical Ventilator 100 11/19/17 07:00 112/69 11/19/17 06:58 111 30 100 11/19/17 06:00 112 109/68 11/19/17 06:00 120/56 11/19/17 06:00 110 25 119/72 100 Mechanical Ventilator 100 11/19/17 05:30 109 25 119/72 100 Mechanical Ventilator 100 11/19/17 05:24 117 31 100 11/19/17 05:00 113/70 11/19/17 05:00 107 25 113/70 99 Mechanical Ventilator 100 11/19/17 04:30 113 25 110/65 96 Mechanical Ventilator 100 11/19/17 04:00 99.0 113 32 117/69 97 Mechanical Ventilator 100 99.0 11/19/17 04:00 117/69 11/19/17 04:00 100 11/19/17 04:00 112 11/19/17 03:30 117 34 112/66 95 Mechanical Ventilator 100 11/19/17 03:01 125 36 100 11/19/17 03:00 Mechanical Ventilator 100 11/19/17 03:00 125 27 130/99 96 Mechanical Ventilator 100 11/19/17 03:00 130/99 11/19/17 03:00 Mechanical Ventilator 100 11/19/17 02:30 127 28 139/74 97 Mechanical Ventilator 100 11/19/17 02:00 123/90 11/19/17 02:00 127 30 123/90 98 Mechanical Ventilator 100 11/19/17 01:30 127 31 135/97 98 Mechanical Ventilator 100 11/19/17 01:14 104 36 100 11/19/17 01:02 110/60 11/19/17 01:00 124 27 135/97 100 Mechanical Ventilator 100 11/19/17 01:00 135/97 11/19/17 00:30 123 28 124/69 97 Mechanical Ventilator 100 11/19/17 00:00 100 11/19/17 00:00 110 11/19/17 00:00 99.3 123 29 90/78 97 Mechanical Ventilator 100 99.3 11/19/17 00:00 90/78 11/18/17 23:13 120 23 97 Mechanical Ventilator 100 11/18/17 23:12 102 32 100 11/18/17 23:04 122 21 97 Mechanical Ventilator 100 11/18/17 23:00 118 32 122/75 99 Mechanical Ventilator 100 11/18/17 23:00 116/77 11/18/17 22:53 112 11/18/17 22:30 114 34 101/67 94 Mechanical Ventilator 100 11/18/17 22:00 113 32 109/44 93 Mechanical Ventilator 100 11/18/17 22:00 101/67 11/18/17 21:42 114 92/64 11/18/17 21:00 113/75 11/18/17 20:43 113 28 100 3/11/18 20:30 112 32 114/66 92 Mechanical Ventilator 100 11/18/17 20:00 109/66 11/18/17 20:00 100 11/18/17 20:00 103 11/18/17 20:00 112 34 101/66 94 Mechanical Ventilator 100 11/18/17 19:30 98.8 111 32 109/44 94 Mechanical Ventilator 100 98.8 11/18/17 19:14 109 24 98 Mechanical Ventilator 100 11/18/17 19:09 110 24 100 11/18/17 19:07 111 24 95 Mechanical Ventilator 100 11/18/17 19:00 109/44 11/18/17 19:00 110 32 109/44 94 Mechanical Ventilator 100 General Appearance: on vent, patient on isolation Cardiovascular: normal rate Respiratory/Chest: decreased breath sounds Abdomen: normal bowel sounds, non tender, soft Extremities: trace edema Intake and Output 11/18/17 11/19/17 19:00 07:00 Intake Total 616.17 ml 455.72 ml Output Total 220 ml 20 ml Balance 396.17 ml 435.72 ml IV Total 566.17 ml 455.72 ml Other 50 ml Output Urine Total 220 ml 20 ml Laboratory Tests Test 11/19/17 04:00 11/19/17 04:45 11/19/17 11:30 Arterial Blood pH 7.430 (7.350-7.450) Arterial Blood Partial Pressure CO2 38.7 mmHg (35.0-45.0) Arterial Blood Partial Pressure O2 58.4 mmHg (75.0-100.0) L Arterial Blood HCO3 25.1 mmol/L (22.0-26.0) Arterial Blood Oxygen Saturation 88.7 % (92.0-98.0) L Arterial Blood Base Excess 0.8 Dipak Test Positive White Blood Count 28.1 K/UL (4.8-10.8) *H Red Blood Count 3.18 M/UL (4.70-6.10) L Hemoglobin 9.4 G/DL (14.2-18.0) L Hematocrit 28.9 % (42.0-52.0) L Mean Corpuscular Volume 91 FL (80-99) Mean Corpuscular Hemoglobin 29.5 PG (27.0-31.0) Mean Corpuscular Hemoglobin Concent 32.5 G/DL (32.0-36.0) Red Cell Distribution Width 14.8 % (11.6-14.8) Platelet Count 629 K/UL (150-450) H Mean Platelet Volume 6.1 FL (6.5-10.1) L Neutrophils (%) (Auto) % (45.0-75.0) Lymphocytes (%) (Auto) % (20.0-45.0) Monocytes (%) (Auto) % (1.0-10.0) Eosinophils (%) (Auto) % (0.0-3.0) Basophils (%) (Auto) % (0.0-2.0) Differential Total Cells Counted 100 Neutrophils % (Manual) 84 % (45-75) H Lymphocytes % (Manual) 8 % (20-45) L Monocytes % (Manual) 8 % (1-10) Eosinophils % (Manual) 0 % (0-3) Basophils % (Manual) 0 % (0-2) Band Neutrophils 0 % (0-8) Platelet Estimate Increased H Platelet Morphology Normal Hypochromasia 1+ Anisocytosis 1+ Sodium Level 147 MMOL/L (136-145) H Potassium Level 4.1 MMOL/L (3.5-5.1) Chloride Level 112 MMOL/L (98-107) H Carbon Dioxide Level 26 MMOL/L (21-32) Anion Gap 9 mmol/L (5-15) Blood Urea Nitrogen 68 mg/dL (7-18) H Creatinine 2.9 MG/DL (0.55-1.30) #H Estimat Glomerular Filtration Rate 26.9 mL/min (>60) Glucose Level 111 MG/DL (74-106) H Calcium Level 8.4 MG/DL (8.5-10.1) L Phosphorus Level 5.8 MG/DL (2.5-4.9) H Magnesium Level 1.9 MG/DL (1.8-2.4) Total Bilirubin 0.5 MG/DL (0.2-1.0) Aspartate Amino Transf (AST/SGOT) 27 U/L (15-37) Alanine Aminotransferase (ALT/SGPT) 14 U/L (12-78) Alkaline Phosphatase 150 U/L (46-116) H Pro-B-Type Natriuretic Peptide 3702 pg/mL (0-125) H Total Protein 5.8 G/DL (6.4-8.2) L Albumin 1.6 G/DL (3.4-5.0) L Globulin 4.2 g/dL Albumin/Globulin Ratio 0.4 (1.0-2.7) L Urine Color Pale yellow Urine Appearance Slightly cloudy Urine pH 5 (4.5-8.0) Urine Specific [place] 1.020 (1.005-1.035) Urine Protein 2+ (NEGATIVE) H Urine Glucose (UA) Negative (NEGATIVE) Urine Ketones 2+ (NEGATIVE) H Urine Occult Blood 5+ (NEGATIVE) H Urine Nitrite Negative (NEGATIVE) Urine Bilirubin Negative (NEGATIVE) Urine Urobilinogen Normal MG/DL (0.0-1.0) Urine Leukocyte Esterase 3+ (NEGATIVE) H Urine RBC 5-10 /HPF (0 - 0) H Urine WBC 15-20 /HPF (0 - 0) H Urine Squamous Epithelial Cells Few /LPF (NONE/OCC) Urine Bacteria Moderate /HPF (NONE) H Urine Yeast Few /HPF (NONE) H Microbiology Date/Time Source Procedure Growth Status 11/17/17 16:06 Sputum Gram Stain - Final Resulted 11/17/17 16:06 Sputum Culture - Preliminary Gram Negative Fran Resulted 11/17/17 16:30 Urine,Clean Catch Urine Culture - Preliminary Gram Negative Bacillus 1 Resulted CHRISTEN LOVE Nov 19, 2017 18:41
[2017-11-19] MEDS: Dyna-Hex 2% Top Sol 2oz TOPIC SCH (20:32)
[2017-11-20] VITALS (15 sets, daily range): BP systolic 94–133; BP diastolic 52–80
[2017-11-20] MEDS: Levalbuterol Inh UD 1.25mg/0.5ml HHN SCH ×3 (00:06→06:55)
[2017-11-20] MEDS: Meropenem 2 GM in NS 110 ML IVPB SCH (02:29)
[2017-11-20 04:38] LABS: HEMATOCRIT 25.7 % (42.0-52.0); MEAN CORPUSCULAR VOLUME 91 FL (80-99); PLATELET COUNT 585 K/UL (150-450); RED BLOOD COUNT 2.82 M/UL (4.70-6.10); RED CELL DISTRIBUTION WIDTH 15.3 % (11.6-14.8)
[2017-11-20 04:50] LABS: WHITE BLOOD COUNT 33.3 K/UL (4.8-10.8)
[2017-11-20] MEDS: Metoprolol Tartrate 50mg tab GT SCH (05:08)
[2017-11-20 05:29] LABS: ALANINE AMINOTRANSFERASE 17 U/L (12-78); ALBUMIN 1.5 G/DL (3.4-5.0); ALBUMIN/GLOBULIN RATIO 0.3 (1.0-2.7); ALKALINE PHOSPHATASE 173 U/L (46-116); ANION GAP 10 mmol/L (5-15); ASPARTATE AMINO TRANSFERASE 29 U/L (15-37); BILIRUBIN,TOTAL 0.4 MG/DL (0.2-1.0); BLOOD UREA NITROGEN 80 mg/dL (7-18); CALCIUM 8.1 MG/DL (8.5-10.1); CARBON DIOXIDE 28 MMOL/L (21-32); CHLORIDE 111 MMOL/L (98-107); POTASSIUM 4.2 MMOL/L (3.5-5.1); SODIUM 149 MMOL/L (136-145)
[2017-11-20 07:04] LABS: PHOSPHORUS 7.1 MG/DL (2.5-4.9)
[2017-11-20] MEDS ORDERED: Atropine Inj 1mg/10ml Syr ONE (07:58)
[2017-11-20] MEDS ORDERED: Sodium Bicarbonate 50ml Carp ONE (07:58)
[2017-11-20] MEDS ORDERED: NS 275ml ONE (07:58)
[2017-11-20] MEDS ORDERED: Tubing IV Secondary IV ONE (07:58)
--- NOTE | 2017-11-20 12:13 | Diagnostic Imaging Report ---
Indication: Dyspnea Technique: One view of the chest Comparison: 11/19/2017 Findings: Consolidation at the right mid and lower lung appears minimally improved. Retrocardiac consolidation is possibly worse, with increasing volume loss. There may be new or increased pleural fluid on the left, as well. The heart size is normal. Tracheostomy, right jugular central venous catheter remain. Impression: Possibly minimally improved parenchymal disease throughout the right mid and lower lung. Suggestion some worsening of parenchymal disease and pleural fluid on the left
--- NOTE | 2017-11-20 17:36 | Cardiology Report ---
APPROVED REPORT EKG Measurement Heart [id number] Sinus tachycardia Otherwise normal ECG
--- NOTE | 2017-11-22 06:49 | Emergency Room Report ---
History of Present Illness General Chief Complaint: Altered Level of Consciousness Source: Medical Record, PMD Present Illness Allergies: Uncoded Allergies: TAPE (Adverse Reaction, Mild, 11/09/17) REDNESS AT TAPE SITE WHEN APPLIED TAPE Nursing Documentation-[facility] Past Medical History: No History, Except For Hx Hypertension: Yes Hx Cancer: No Hx Gastrointestinal Problems: Yes - dysphagia Hx Neurological Problems: Yes - muscle weakness, hx of fall, obstructive hydrocephalus Hx Cerebrovascular Accident: Yes Hx Seizures: Yes Hx Epilepsy: Yes Physical Exam Vital Signs Date Time Temp Pulse Resp B/P (MAP) Pulse Ox O2 Delivery O2 Flow Rate FiO2 11/18/17 07:00 74/38 11/18/17 07:00 84 26 88 Mechanical Ventilator 100 11/18/17 13:00 98.6 98.6 Procedures CPR/Code Blue CPR/Code Blue Narrative Called for Code Blue to ICU Per RN, patient had bradycardia and then asystole Patient maxed out on dopamine After 1 round of CPR and epinephrine, had ROSC However on bedside cardiac sono, had minimal cardiac squeeze Dobutamine was started at max of 20mcg/kg/min Patient then noted to be bradycardic, 1 dose of atropine was given Patient coded again 5 minutes later CPR restarted, additional round of epi given However, patient pronounced at 759am after family, who was contacted by SW, advised that we stop resuscitation efforts Patient had fixed/dilated pupils, asystole on monitor, no cardiac squeeze on bedside cardiac sono. Hospitalist Dr Martines informed at 8am. Medical Decision Making Diagnostic Impression: Primary Impression: Sepsis Additional Impressions: Fever Renal failure Pneumonia Lactic acidosis Cardiac arrest Last Vital Signs Date Time Temp Pulse Resp B/P (MAP) Pulse Ox O2 Delivery O2 Flow Rate FiO2 11/20/17 07:00 91 19 101/76 98 Mechanical Ventilator 100 11/20/17 04:00 98.9 98.9 Disposition: Condition: Critical Referrals: NON PHYSICIAN (PCP) IESHA CANALES M.D. Nov 22, 2017 06:49
--- NOTE | 2017-11-23 18:00 | Discharge Summary ---
Discharge Summary Hospital Course Date of Admission Oct 11, 2017 at 19:30 Date of Discharge Nov 20, 2017 at 07:59 Admitting Diagnosis SEPSIS HPI Armaan Stearns is a 61 year old male who was admitted on Oct 11, 2017 at 19:30 for Sepsis Hospital Course [id number] Discharge Discharge Disposition Patient Discharge Diagnoses: Asuncion Da Silva NP Nov 23, 2017 18:00
--- NOTE | 2017-11-24 04:30 | Discharge Summary 2 SIG ---
DATE OF ADMISSION: 10/11/2017 DATE OF DISCHARGE: 11/20/2017 BRIEF SUMMARY: The patient is a 61-year-old unfortunate male who was transferred from a long term facility as he was noted to be more altered and was found to have low oxygen saturation at the facility at 86%, which did not improve with 2 liters nasal cannula. He has history of CVA with hemiplegia, history of seizure disorder. On evaluation at ED, he was febrile, temperature of 102 degrees. He had increased work of breathing and was tachypneic. He was started on BiPAP. Chest x-ray showed large pneumonia and creatinine was elevated to 1.7. He also had a lactic acidosis. Lactic acid level of 5. The patient was critically ill. He was started on IV antibiotic and was admitted to [facility] for sepsis and acute respiratory failure. He was followed by Infectious Disease specialist and was started empirically on IV vancomycin. Cefepime was switched to meropenem for ESBL coverage as there was gram-negative rods growing in blood culture. He had a negative influenza screen, however, was given empiric treatment with Tamiflu. He was eventually weaned off BiPAP and was placed on BiPAP p.r.n. He had altered level of consciousness. Unable to perform speech therapy. Dr. Campos was consulted for PEG tube placement and on 10/18/2017, underwent EGD with successful placement of PEG. He was placed on abdominal binder with head of bed elevated at all times. Apparently, on 10/21/2017, Code Blue was called, the patient was hypoxic and was lethargic. ABG showed hypoxia. He was orally intubated. There was poor aeration of left lung likely due to mucus plug. He had respiratory insufficiency, requiring prolonged ventilatory support. He underwent percutaneous tracheostomy by Dr. Esteban on 10/23/2017. He also had hematuria and urine was monitored. He was noted to have abdominal distention. KUB showed fecal impaction and was given digital and manual fecal impaction. On 10/26/2017, the patient became bradycardic, lost pulse, rhythm was PEA. Another Code Blue was called in. He also had limited IV access and a triple central line to the right subclavian was inserted. He was noted to have a drop in hemoglobin to 5. He emergently underwent EGD that showed active GI bleed. He was placed on Protonix drip and was given multiple blood transfusions. He was placed on 2 IV pressors and eventually developed acute kidney injury. A dialysis catheter was inserted to the right jugular and the patient was started on hemodialysis. Multiple antibiotics were given. He also had transaminitis due to shock. The patient was positive for C. difficile. Protonix drip had to be discontinued. He was given H2 blockers b.i.d. He had an episode of recurrent bleed and was given two units of packed RBC blood transfusion. He came in with an open wound on the left leg and a deep tissue injury on the right lateral malleolus. He was given wound care. Renal function improved. Dialysis catheter was discontinued on 11/16/2017. He was eventually started on G-tube feeding. He was continued on Levophed for blood pressure support. On 11/20/2017, another Code Blue was called. The patient went bradycardic, then asystole. He was maxed out on dopamine and had 1 round of CPR with epinephrine and had return of spontaneous circulation. Dobutamine was started, but then he became bradycardic and was given atropine and coded again 5 minutes later. CPR was restarted with additional rounds of epinephrine. Family was contacted by social media marketing manager and family advised to stop resuscitative efforts. The patient had fixed and dilated pupils and was asystole on monitor. The patient eventually . FINAL DIAGNOSES: 1. Acute respiratory failure. 2. Collapse of right lung. 3. Acute renal failure, requiring hemodialysis. 4. Pneumonia. 5. Sepsis. 6. Generalized epileptic seizure. 7. Dysphagia, status post esophagogastroduodenoscopy and percutaneous endoscopic gastrostomy tube placement. 8. Acute gastrointestinal bleed due to gastric ulcer, requiring multiple blood transfusion. 9. Severe anemia, requiring blood transfusion. 10. Shock liver. 11. Dementia. 12. Escherichia coli urinary tract infection with bacteremia. 13. Suspicion of fluid despite negative rapid test. 14. Status post multiple cardiac arrest. 15. Status post hemorrhagic shock due to gastrointestinal bleed. 16. Lactic acidosis. 17. Status post percutaneous endoscopic gastrostomy tube placement. 18. Status post tracheostomy placement. Sissy Martines M.D. I have been assigned to dictate discharge summary on this account and I was not involved in the patient's management. Asuncion Da Silva N.P. DR: Oksana JOB#: [id number] CC: [place]
== END 2017-11-20 07:59 | disposition expired | DRG 5 ==
LOC: EDBD 18:49 → EMR 19:26 → ICU 19:30 → EDBEDREQ 20:16 → 2W 10-12 15:09 → 4W 10-15 16:04 → 2W 10-16 11:21 → ICU 10-20 20:00 → 2W 10-24 17:01 → ICU 10-26 05:00 → SDSOVERFLO 10-29 12:04 → ICU 10-29 12:08 → 2W 10-30 20:20 → ICU 11-18 00:30
DX: A41.50 Gram-negative sepsis, unspecified (principal); I21.4 Non-ST elevation (NSTEMI) myocardial infarction; K72.00 Acute and subacute hepatic failure without coma; R65.21 Severe sepsis with septic shock; J96.21 Acute and chronic respiratory failure with hypoxia; R57.8 Other shock; G93.40 Encephalopathy, unspecified; N17.9 Acute kidney failure, unspecified; J18.9 Pneumonia, unspecified organism; G91.1 Obstructive hydrocephalus; R13.10 Dysphagia, unspecified; I10 Essential (primary) hypertension; N39.0 Urinary tract infection, site not specified; G40.909 Epilepsy, unspecified, not intractable, without status epilepticus; F03.90 Unspecified dementia, unspecified severity, without behavioral disturbance, psychotic disturbance, mood disturbance, and anxiety; J20.9 Acute bronchitis, unspecified; I49.01 Ventricular fibrillation; D62 Acute posthemorrhagic anemia; I46.9 Cardiac arrest, cause unspecified; B96.20 Unspecified Escherichia coli [E. coli] as the cause of diseases classified elsewhere; E87.2 Acidosis; R31.9 Hematuria, unspecified; K25.0 Acute gastric ulcer with hemorrhage; R31.0 Gross hematuria; A04.72 Enterocolitis due to Clostridium difficile, not specified as recurrent; I25.10 Atherosclerotic heart disease of native coronary artery without angina pectoris; K29.01 Acute gastritis with bleeding; I69.359 Hemiplegia and hemiparesis following cerebral infarction affecting unspecified side; E88.09 Other disorders of plasma-protein metabolism, not elsewhere classified; K56.41 Fecal impaction; J11.1 Influenza due to unidentified influenza virus with other respiratory manifestations; J98.11 Atelectasis; L89.510 Pressure ulcer of right ankle, unstageable
CPT/HCPCS: 36415; 36569; 36600; 70450; 71045; 71275; 74018; 74176; 76705; 76775; 76937; 78266; 80048; 80053; 80061; 80069; 80164; 80202; 81001; 81003; 82550; 82553; 82803; 82962; 82977; 83605; 83690; 83735; 83880; 84100; 84133; 84300; 84443; 84484; 84550; 85007; 85025; 85610; 85651; 85730; 86140; 86706; 86707; 86710; 86803; 86850; 86900; 86901; 86920; 87040; 87070; 87081; 87086; 87181; 87205; 87324; 89050; 92950; 93005; 93306; 93970; 94002; 94003; 94150; 94640; 94660; 94664; 94760; J0171; J2250; J2370; J7620; J8499